=== PATIENT | female | born 1950 | race Caucasian/White ===

== ENCOUNTER → 2020-04-29 09:26 | Outpatient (CLI) | payer SELFPAY ==
--- NOTE | ~2020-04-29 | CT_ITS ---
EXAMINATION: CT brain wo con DATE: 04/29/2020 09:47 INDICATION: Altered mental status. Confusion, disorientation. Right lower extremity paresis. TECHNIQUE: Computed tomography (CT) of the head was performed without intravenous contrast. The mA wa s adjusted according to patient size. Iterative reconstruction technique was employed. Exam dose: 67 4.51 mGy-cm total exam DLP. COMPARISON: None FINDINGS: There is bilateral vertebral artery, basilar artery and bilateral carotid siphon internal c arotid artery calcification. There is nonspecific patchy diminished attenuation of the subcortical and periventricular cerebral wh ite matter, likely due to chronic small vessel ischemic changes. There is moderately prominent cerebral cortical atrophy, particularly in the frontal areas. The cereb ral ventricles are unremarkable. No intracranial mass lesion or hemorrhage or intracranial mass lesion is detected. No midline shift o r mass effects. No subdural or epidural hematoma. There is a small mucus retention cyst or polyp in the posterolateral aspect of the right ethmoid air cells. The paranasal sinuses and mastoid air cells are otherwise unremarkable. Partial ethmoidectomie s and nasal antral windows. No fracture or bone destruction of the cranial vault is detected. IMPRESSION: Cerebral atherosclerosis and chronic small vessel ischemic changes of the cerebral white matter Moderately prominent cerebral cortical atrophy Reviewed, dictated and finalized at [facility]. Reviewed, dictated and finalized at [facility].
== END ==
PROVIDERS: PCP Physician Assistant; Visit Provider Physician Assistant
DX: R41.0 Disorientation, unspecified (principal); R53.83 Other fatigue; R53.1 Weakness; I67.2 Cerebral atherosclerosis
CPT/HCPCS: 70450

== ENCOUNTER 2024-05-03 11:50 | Emergency (ER) | payer MEDICARE, SELFPAY ==
[2024-05-03 12:10] VITALS: BP 131/64; PULSE 61; RESP 18; TEMP 36.4; O2SAT 99
--- NOTE | 2024-05-03 12:15 | ED.SKABFB ---
HPI - Skin/Abscess/Foreign Bdy General Chief complaint: Skin/Abscess/Foreign Body Stated complaint: insect bite Time Seen by Provider: 05/03/24 12:15 Source: patient Mode of arrival: ambulatory Limitations: no limitations History of Present Illness HPI narrative: 73-year-old female presents with complaint of pain, redness to left middle finger. Concern for insect bite. Symptoms for 2 days getting progressively worse. 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 All systems reviewed and negative except as noted above. Related Data Home Medications Medication Instructions Recorded Confirmed amlodipine 5 mg tablet 5 mg PO DAILY 05/03/24 05/03/24 aspirin 81 mg chewable tablet 81 mg PO DAILY 05/03/24 05/03/24 cyanocobalamin (vitamin B-12) 500 500 mcg PO DAILY 05/03/24 05/03/24 mcg tablet donepezil 10 mg tablet 10 mg PO DAILY 05/03/24 05/03/24 levetiracetam 500 mg 500 mg PO BID 05/03/24 05/03/24 tablet,extended release 24 hr levothyroxine 88 mcg tablet 88 mcg PO DAILY 05/03/24 05/03/24 memantine 10 mg tablet 15 mg PO DAILY 05/03/24 05/03/24 Allergies Allergy/AdvReac Type Severity Reaction Status Date / Time No Known Allergies Allergy Verified 05/03/24 12:23 Review of Systems Review of Systems: CONSTITUTIONAL: Denies fever, chills, or sweats. EYES: Denies visual changes, redness, or discharge. ENT: Denies rhinorrhea, congestion, sore throat, or otalgia. CARDIOVASCULAR: Denies chest pain, palpitations, or edema. RESPIRATORY: Denies cough or dyspnea. GASTROINTESTINAL: Denies abdominal pain, nausea, vomiting, or diarrhea. GENITOURINARY: Denies dysuria or hematuria. SKIN: Denies rash or itching. Redness, swelling, pain to left middle finger. MUSCULOSKELETAL: Denies back pain, joint pain, or myalgia. NEUROLOGIC: Denies headache, numbness, or weakness. PSYCHIATRIC: Denies anxiety or depression. All other systems reviewed are negative, except as documented in HPI. [facility] Comments At time of signature, agree with nursing past medical, surgical, social and family history. There is no relevant family history pertinent to the presenting complaint. Exam Narrative: GENERAL: This is a well-nourished, well-developed patient, in no apparent distress. HEAD: normocephalic, atraumatic. EYES: PERRL. Sclera clear/white. Vision is grossly intact. EARS: External ears normal NOSE: External nose normal NECK: Neck supple, non-tender without lymphadenopathy, masses or thyromegaly. CARDIOVASCULAR: Regular rate and rhythm without murmurs, gallops, or rubs. RESPIRATORY: Clear to auscultation. Breath sounds equal bilaterally. No wheezes, rales, or rhonchi. SKIN: warm, Dry, intact with no suspicious lesions or rash, good texture and turgor. Paronychia to left middle finger, medial aspect. Erythematous, fluctuant. NEURO: awake, alert, and oriented to person, place and time. There were no obvious focal neurologic abnormalities. EXTREMITIES: No joint tenderness, effusion, or edema noted. Course Course Level of Care: Express Care Visit Vital Signs Vital signs: Vital Signs Temperature 36.4 C 05/03/24 12:10 Pulse Rate 61 05/03/24 12:10 Respiratory Rate 18 05/03/24 12:10 Blood Pressure 131/64 05/03/24 12:10 Pulse Oximetry 99 05/03/24 12:10 Oxygen Delivery Room Air 05/03/24 12:10 Temperature 36.4 C 05/03/24 12:10 Pulse Rate 61 05/03/24 12:10 Respiratory Rate 18 05/03/24 12:10 Blood Pressure 131/64 05/03/24 12:10 Pulse Oximetry 99 05/03/24 12:10 Oxygen Delivery Room Air 05/03/24 12:10 Reviewed Procedures Abscess I/D hand: Date of Incision: 05/03/24 Time of Incision: 12:15 Side (if applicable): left ( middle finger) Technique: incised with #11 blade Irrigation: No Packing used?: none I&D Results: Pus Abcess I&D Additional Comments: paronychia to left middle finger MDM - Skin/Abscess/Foreign Bdy MDM
--- NOTE | 2024-05-04 10:51 | PC.NURSE ---
[id number] Ta from [facility] pharmacy called stating pt was allergic to PCN. Chart show NKDA; pt is in a long-term care facility so pharmacy could not verify when pt arrived. Medication was changed to Keflex 500 TID X10d per Misa Beltran
== END 2024-05-03 12:25 | disposition home or self-care (01) ==
PROVIDERS: Emergency Provider Nurse Practitioner Family
DX: L03.012 Cellulitis of left finger (principal); G30.9 Alzheimer's disease, unspecified; F02.80 Dementia in other diseases classified elsewhere, unspecified severity, without behavioral disturbance, psychotic disturbance, mood disturbance, and anxiety; E78.00 Pure hypercholesterolemia, unspecified; I10 Essential (primary) hypertension; M19.90 Unspecified osteoarthritis, unspecified site; E03.9 Hypothyroidism, unspecified; Z79.82 Long term (current) use of aspirin
CPT/HCPCS: 10060; 99213; G0463

== ENCOUNTER 2024-11-20 07:28 | Emergency (ER) | payer MEDICARE, SELFPAY ==
--- NOTE | ~2024-11-20 | CT_ITS ---
EXAMINATION: CT brain wo con DATE: 11/20/2024 07:58 INDICATION: Seizure. TECHNIQUE: Computed tomography (CT) of the head was performed without intravenous contrast. The mA wa s adjusted according to patient size. Iterative reconstruction technique was employed. The dose-lengt h product was 1059.33 mGy-cm. COMPARISON: Head CT 04/29/20 FINDINGS: There are scattered areas of low attenuation in the cerebral white matter. There is no intr acranial hemorrhage, acute infarction, or abnormal intracranial mass lesion. The ventricles are gali l in size. There are likely changes of ocular lens replacement surgeries. There is mild mucosal thick ening in the paranasal sinuses with surgical changes. The mastoid air cells are normal. IMPRESSION: 1. Stable extensive nonspecific cerebral white matter disease, which likely represents chronic small vessel ischemic disease. Reviewed, dictated and finalized at location [facility] [employer] IMPRESSION: 1. Stable extensive nonspecific cerebral white matter disease, which likely rep resents chronic small vessel ischemic disease.
[2024-11-20 07:29] VITALS: BP 141/91; PULSE 128; RESP 20; TEMP 36.4; O2SAT 94
--- NOTE | 2024-11-20 07:33 | ECG_ITS ---
Test Date: 2024-11-20 07:40:22 Measurements Intervals [place] Rate: 131 P: 0 MA: 0 QRS: 26 QRSD: 101 T: 0 QT: 244 QTc: 360 Interpretive Statements ATRIAL FIBRILLATION WITH RAPID VENTRICULAR RESPONSE NONSPECIFIC ST & T-WAVE ABNORMALITY- DIFFUSE LEADS BASELINE ARTIFACT- I, II, III, AVR, AVL, AVF, V1-V3 ABNORMAL ECG No previous ECG available for comparison Electronically Signed On 11-20-2024 08:09:15 [place] by David Sanders D.O.
--- OUTSIDE RECORDS SUMMARY | 2024-11-20 08:35 | XMS_ITS | Clinical Summary ---
Author Organization [facility] Address [address] [place] [address] Care Team Providers Care Consumer Insight Analyst Name Role Phone Jorge Jefferson MD Unavailable + [phone] Lizzie Collins MD Unavailable [phone] Freeman Chung MD Unavailable [phone] Maribel Andrade MD Unavailable [phone] Guy Rosen MD Unavailable Nan Blair Primary Care Provider [phone] Allergies Active Allergy Reactions Criticality Noted Date Comments Amoxicillin Unknown 02/02/2019 Codeine Other (See comments),Dizziness,Naus ea And Vomiting,Unknown Low 03/16/2016 Spaced out and sick to stomach Spaced out and sick to stomach confusion, n/v [place] Other (See comments),Unknown Low 02/02/2019 Severe reaction-Kidney failure Severe reaction-Kidney failure Severe reaction-Kidney failure Morphine Unknown,Vomiting Low 10/13/2018 *pt not aware of reaction; can't remember but knows she should not take this. vomiting Olanzapine Delusions Medium 11/09/2018 Confusion Penicillins Hives,Swelling,Unkno wn,U rticaria Medium 03/16/2016 Hives Medications acetaminophen (TYLENOL) 325 mg tablet Take 2 tablets (650 mg total) by mouth every 6 (six) hours as needed for pain 90 tablet 1 Active Additional Information Patient not taking.Reported on 07/29/2024 cholecalciferol (VITAMIN D-3) 25 mcg (1,000 unit) tablet TAKE 1 TABLET BY MOUTH ONCE DAILY 90 tablet 1 1 Active donepeziL (ARICEPT) 10 mg tablet TAKE 1 TABLET BY MOUTH ONCE DAILY 90 tablet 1 1 Active cyanocobalamin (Vitamin B-12) 1,000 mcg tablet TAKE 1 TABLET BY MOUTH EVERY OTHER DAY 7 tablet 4 2 Active memantine (NAMENDA) 10 mg tabletIndicatio ns:Moderate to Severe Alzheimer's Type Dementia Take 1 tablet (10 mg total) by mouth 2 (two) times a day Active melatonin 5 mg tablet Take 0.6 tablets (3 mg total) by mouth nightly as needed Active levothyroxine (SYNTHROID) 88 mcg tablet TAKE 1 TABLET BY MOUTH ONCE DAILY 14 tablet 3 3 Active aspirin 81 mg enteric coated tablet Take 1 tablet (81 mg total) by mouth daily Active amLODIPine (NORVASC) 5 mg tablet Take 1 tablet (5 mg total) by mouth daily 4 Active albuterol HFA (PROVENTIL HFA,VENTOLIN HFA,PROAIR HFA) 90 mcg/actuation inhaler Inhale 2 puffs every 6 (six) hours as needed for wheezing Active naltrexone (DEPADE) 50 mg tabletIndicatio ns:Alcohol use disorder, moderate (HCC) Take 1 tablet (50 mg total) by mouth daily 30 tablet 3 4 07/29/20 25 Active Active Problems Problem Noted Date Diagnosed Date Medicare annual wellness visit, subsequent 05/07 Assessment & Plan (05/07/2023 3:56 PM CDT): Health Maintenance: -PCV13 vaccine: 05/18/2015 -PPSV23 vaccine: 02/02/2019 -Tdap vaccine: due -Influenza vaccine: due in Fall -Shingles vaccine: 07/02/2018, 10/16/2018 -Colonoscopy: 12/16/2018 (5 year recall) -Last WWE: N/A -Last Mammogram: -Last DEXA: 05/07/2022 -Last eye exam: 2021 -Last MHA: 05/07/2023 Patient due for Tdap, she can get this at her pharmacy. Patient and step son will discuss whether she would like to continue with mammograms. Annual labs ordered today. Continue with healthy diet and getting regular exercise. Late onset Alzheimer's disease with behavioral d isturbance 10/12/2020 Assessment & Plan (01/20/2024 5:31 PM CDT): AD, expected progression Continue Aricept, Namenda Meds administered by [facility]. Add Tiffany to their roster to administer to patient. Continue to monitor alcohol intake, spending, and falls/ possible seizure. Low threshold to consider seizure work-up: brain MRI, EEG --Discontinue Keppra 500mg BID. No indication to be on med after 1 lifetime seizure. Assessment & Plan (05/07/2023 3:57 PM CDT): Followed by Neurology. Continue Namenda and Aricept as prescribed. Steps and will clarify dosing of Namenda and update our office. Assessment & Plan (01/07/2023 5:47 PM CDT): Expected progression of AD Continue Aricept and Namenda Write more on your calendar and referencing it. Monitor wine intake. Monitor debit/ charge card expenditure. Consider setting a limit to minimize scams. Assessment & Plan (01/01/2022 4:48 PM CDT): Continue Aricept Namenda not started by this office; ok to continue Doing well at [facility] Assessment & Plan (11/15/2021 10:29 AM CRUTCH MAKER): Worsening. Patient will continue current meds. Followed by Neurology as needed. Patient continues with assisted living/memory care Assessment & Plan (12/26/2020 5:35 PM CDT): Dx: Alzheimer disease Continue Donepezil 10mg in the AM Sleep: Turn over phone and not scroll on the phone prior to sleep. If unable to sleep after 20 minutes, suggest reading a book instead. Take Melatonin at the same time every night to help retrain your brain. It is not addictive. Agree with move to [facility]. Continue to work with Dr. Andrade, counselor and cognitive stimulation therapist. Assessment & Plan (10/12/2020 11:27 AM CRUTCH MAKER): Followed by neurology, unchanged Class 1 obesity due to exces s calories with serious comorbidity and body mass index (BMI) of 31.0 to 31.9 in adult 08/26/2019 Assessment & Plan (05/07/2023 2:29 PM CDT): Reviewed BMI Focus on healthy diet options Work on healthy changes Assessment & Plan (11/15/2021 10:28 AM CRUTCH MAKER): Uncontrolled. Goal of BMI is less than 30 Educated patient on healthy diet/exercise plan. Exercise 150min-300min per week of moderate intensity. Diet: good, healthy protein (eggs, nuts, peanut butter, chicken, fish, turkey, less pork/beef), lots of vegetables, less carbohydrates and less sugar. Patient has had a significant amount of unexplained weight loss. Requested lab results Patient will start Ensure drinks twice a day. Follow-up in 1 month Assessment & Plan (10/12/2020 11:26 AM CRUTCH MAKER): Educated patient on healthy diet/exercise plan. Exercise 150min-300min per week of moderate intensity. Diet: good, healthy protein (eggs, nuts, peanut butter, chicken, fish, turkey, less pork/beef), lots of vegetables, less carbohydrates and less sugar. Assessment & Plan (05/27/2020 3:38 PM CDT): Educated patient on healthy diet/exercise plan. Exercise 150min-300min per week of moderate intensity. Diet: good, healthy protein (eggs, nuts, peanut butter, chicken, fish, turkey, less pork/beef), lots of vegetables, less carbohydrates and less sugar. Assessment & Plan (05/02/2020 2:08 PM CDT): Educated patient on healthy diet/exercise plan. Exercise 150min-300min per week of moderate intensity. Diet: good, healthy protein (eggs, nuts, peanut butter, chicken, fish, turkey, less pork/beef), lots of vegetables, less carbohydrates and less sugar. Assessment & Plan (02/19/2020 3:29 PM CDT): Educated patient on healthy diet/exercise plan. Exercise 150min-300min per week of moderate intensity. Diet: good, healthy protein (eggs, nuts, peanut butter, chicken, fish, turkey, less pork/beef), lots of vegetables, less carbohydrates and less sugar. Assessment & Plan (08/26/2019 1:23 PM CRUTCH MAKER): Educated patient on healthy diet/exercise plan. Exercise 150min-300min per week of moderate intensity. Diet: good, healthy protein (eggs, nuts, peanut butter, chicken, fish, turkey, less pork/beef), lots of vegetables, less carbohydrates and less sugar. Health maintenance examination 01/26/2019 Overview (11/15/2021): PMH/MHA: 11/15/2021 Last pap:2012 Last mammogram: 02/04/2018 (requested report) Last dexa:02/04/2018, ordered Last colonoscopy/cologuard:08/2015, 12/16/2018 repeat 2023 Last Hep C:04/2017 Last tdap:04/08/2013 Last Prevnar/pneumovax: 05/18/2015 (13) 07/18/2011 (23) Last Shingrix: (zoster 10/07/2012) 10/16/2018, 07/03/2018 Last eye exam: 05/25/2020 Assessment & Plan (11/15/2021 10:28 AM CRUTCH MAKER): PMH/MHA: 11/15/2021 Last pap:2012 Last mammogram: 02/04/2018 (requested report) Last dexa:02/04/2018, ordered Last colonoscopy/cologuard:08/2015, 12/16/2018 repeat 2023 Last Hep C:04/2017 Last tdap:04/08/2013 Last Prevnar/pneumovax: 05/18/2015 (13) 07/18/2011 (23) Last Shingrix: (zoster 10/07/2012) 10/16/2018, 07/03/2018 Last eye exam: 05/25/2020 Assessment & Plan (10/12/2020 11:27 AM CRUTCH MAKER): PMH/MHA: 10/12/2020 Last pap:2013 Last mammogram: 02/04/2018 Last dexa:02/04/2018 Last colonoscopy/cologuard:08/2015, 12/16/2018 repeat 2023 Last Hep C:04/2017 Last tdap:04/08/2013 Last Prevnar/pneumovax: 05/18/2015 (13) 07/18/2011 (23) Last Shingrix: (zoster 10/07/2012) 10/16/2018, 07/03/2018 Last eye exam: 05/25/2020 Assessment & Plan (08/26/2019 1:10 PM CRUTCH MAKER): PMH/MHA: 08/26/2019 Last pap:2013 Last mammogram: 02/04/2018 Last dexa:02/04/2018 Last colonoscopy/cologuard:08/2015, 12/16/2018 repeat 2023 Last Hep C:04/2017 Last tdap:04/08/2013 Last Prevnar/pneumovax: 05/18/2015 (13) 07/18/2011 (23) Last Shingrix: (zoster 10/07/2012) 10/16/2018, 07/03/2018 Last eye exam: due Recurrent major depressive disorder, in partial remission 10/13/2018 Assessment & Plan (05/07/2023 3:58 PM CDT): Chronic. Continue follow-up psychiatry. Assessment & Plan (11/15/2021 10:29 AM CRUTCH MAKER): Stable continue meds Assessment & Plan (10/12/2020 11:28 AM CRUTCH MAKER): Stable, followed by Psychiatry Assessment & Plan (05/23/2020 3:09 PM CDT): Strongly recommend consistent care and follow-up with [facility] Psychiatry to evaluate and treat mood diagnoses including but not limited to depression (longstanding), anxiety, panic. Obtain bMRI 3D to assess interval atrophy from 2018 scan. Consider further neurodegenerative work-up depending on bMRI findings. Assessment & Plan (05/02/2020 2:12 PM CDT): Improving continue meds. Follow-up with psychiatry Assessment & Plan (02/19/2020 3:31 PM CDT): Patient feels like her symptoms are controlled, recommend patient follow-up with psychiatry Assessment & Plan (10/16/2019 1:12 PM CRUTCH MAKER): Uncontrolled. Assessment & Plan (10/14/2019 1:02 PM CRUTCH MAKER): Uncontrolled. I really feel like pt is very lonely and she needs daily interaction with other people. Encouraged pt to consider a fdc center to open her world to new hobbies, interactions with other. Need referral to psychiatrist. Need to see counselor within the next 2 wks. Memory issues may be related to depression. Assessment & Plan (08/26/2019 1:24 PM CRUTCH MAKER): Referral to psychiatrist Generalized anxiety disorder 03/12/2018 Assessment & Plan (05/07/2023 3:57 PM CDT): Chronic. Continue follow-up with psychiatrist. Assessment & Plan (11/15/2021 10:28 AM CRUTCH MAKER): Stable, continue current meds Assessment & Plan (10/12/2020 11:26 AM CRUTCH MAKER): Stable followed by Psychiatry Assessment & Plan (02/19/2020 3:30 PM CDT): Stable Assessment & Plan (11/18/2019 4:05 PM CRUTCH MAKER): Patient will hold lorazepam at this time. She is not having any anxiety Assessment & Plan (10/14/2019 1:03 PM CRUTCH MAKER): Referral psychiatrist Assessment & Plan (08/26/2019 1:22 PM CRUTCH MAKER): Stable Bipolar 1 disorder, depressed, moderate (CMS/HCC ) 11/06/2017 Assessment & Plan (05/07/2023 3:57 PM CDT): Chronic. Continue follow-up with psychiatrist. Assessment & Plan (11/15/2021 10:27 AM CRUTCH MAKER): Stable Assessment & Plan (10/12/2020 11:26 AM CRUTCH MAKER): Stable followed by Psychiatry Assessment & Plan (05/02/2020 2:11 PM CDT): Follow with psychiatry Assessment & Plan (02/19/2020 3:30 PM CDT): Patient has not made appointment with a psychiatrist. Patient reports she is feeling stable on her current meds. I encouraged patient to make a Psychiatry appointment Assessment & Plan (11/18/2019 4:05 PM CRUTCH MAKER): Uncontrolled. Increase Wellbutrin to 300 mg. Patient needs to see a psychiatrist. Patient given a list of psychiatrist in the area. I spoke with her lela not too long ago about patient needing to see the psychiatrist and also patient needing to consider moving into some type of fdc center to have interactions with other people Assessment & Plan (10/16/2019 3:21 PM CRUTCH MAKER): Uncontrolled. Pt does not have a psychiatrist at this time. I spoke with patient's papo vogel, today regarding patient's health. I'm concerned with patient's mental health and also her memory. I'm unsure if her depression is leading to the memory issues or if she separately has memory issues going on. I believe patient needs psychiatric care. I'm concerned about patient's staying by herself. I did recommend they consider looking into inpatient psychiatric care at [facility] in [place]. Patient's son will be contacting his brother and they will be deciding what to do in the next day or so. Patient will be monitor closely over the weekend by Papo. Assessment & Plan (10/14/2019 1:03 PM CRUTCH MAKER): Uncontrolled, referral to psychiatrist. Assessment & Plan (08/26/2019 1:22 PM CRUTCH MAKER): Depressed, need to see psychiatry for medication adjustment. Essential (primary) hypertension 08/15/2017 Assessment & Plan (05/07/2023 3:57 PM CDT): Chronic and controlled without medication. Continue to monitor. Assessment & Plan (11/15/2021 10:28 AM CRUTCH MAKER): Stable, continue current meds Assessment & Plan (10/12/2020 11:26 AM CRUTCH MAKER): Stable continue meds Assessment & Plan (02/19/2020 3:30 PM CDT): Stable Assessment & Plan (11/18/2019 4:05 PM CRUTCH MAKER): Stable continue meds Assessment & Plan (08/26/2019 1:22 PM CRUTCH MAKER): Stable, continue current meds Primary osteoarthritis of right knee 08/15/2017 Assessment & Plan (05/07/2023 2:31 PM CDT): Continue Tylenol as needed for pain. Assessment & Plan (11/15/2021 10:29 AM CRUTCH MAKER): Patient takes Tylenol for pain. Assessment & Plan (10/12/2020 11:28 AM CRUTCH MAKER): Uncontrolled. Patient will hopefully get to start physical therapy soon once her insurance has been reinstated. Patient may also need to see Ortho in the near future Assessment & Plan (08/26/2019 1:24 PM CRUTCH MAKER): stable Unsteady gait 11/09/2016 Assessment & Plan (05/07/2023 3:58 PM CDT): Completed physical therapy. No recent falls. Assessment & Plan (11/15/2021 10:29 AM CRUTCH MAKER): Recommend physical therapy. Recommend using a cane Assessment & Plan (10/12/2020 11:29 AM CRUTCH MAKER): Uncontrolled. Patient is doing okay with her maneuvering in her house. Recommend patient use a cane while out. Patient will need to start physical therapy for balance Assessment & Plan (05/02/2020 2:12 PM CDT): Once insurance has been reinstated will order home health physical therapy Assessment & Plan (02/19/2020 3:31 PM CDT): Encourage patient to consider physical therapy and also to start walking daily. Assessment & Plan (08/26/2019 1:24 PM CRUTCH MAKER): Use cane at all times, Recommend PT. Pt will consider that. Assessment & Plan (02/02/2019 11:25 AM CDT): Order physical therapy Glucose intolerance (impaired glucose tolerance) 09/03/2016 Assessment & Plan (05/07/2023 3:57 PM CDT): Diet controlled. Labs ordered today. Assessment & Plan (11/15/2021 10:28 AM CRUTCH MAKER): Diet controlled, requested lab results Assessment & Plan (10/12/2020 11:27 AM CRUTCH MAKER): Stable, diet controlled Assessment & Plan (02/19/2020 3:30 PM CDT): Diet controlled check labs Assessment & Plan (08/26/2019 1:23 PM CRUTCH MAKER): Diet controlled, due for labs Obstructive sleep apnea 08/14/2016 Assessment & Plan (05/07/2023 2:30 PM CDT): Not on CPAP. Assessment & Plan (11/15/2021 10:29 AM CRUTCH MAKER): Stable Assessment & Plan (10/12/2020 11:28 AM CRUTCH MAKER): Stable, no CPAP machine at this time Assessment & Plan (08/26/2019 1:13 PM CRUTCH MAKER): No cpap machine Other allergic rhinitis 08/14/2016 Assessment & Plan (05/07/2023 2:30 PM CDT): Continue current management. Assessment & Plan (11/15/2021 10:29 AM CRUTCH MAKER): Stable Assessment & Plan (10/12/2020 11:28 AM CRUTCH MAKER): Stable p.r.n. meds Assessment & Plan (08/26/2019 1:23 PM CRUTCH MAKER): stable Other specified hypothyroidism 12/30/2015 Assessment & Plan (05/07/2023 2:30 PM CDT): Continue current dose of levothyroxine. Due for TSH. Assessment & Plan (11/15/2021 10:29 AM CRUTCH MAKER): Stable, continue meds, requested lab Assessment & Plan (10/12/2020 11:28 AM CRUTCH MAKER): Stable continue meds Assessment & Plan (02/19/2020 3:31 PM CDT): Check labs Assessment & Plan (08/26/2019 1:24 PM CRUTCH MAKER): Stable, check labs Mixed hyperlipidemia 12/30/2015 Assessment & Plan (05/07/2023 2:30 PM CDT): Diet controlled. Will continue to monitor lipid panel. Assessment & Plan (11/15/2021 10:29 AM CRUTCH MAKER): Diet controlled. Requested lab Assessment & Plan (10/12/2020 11:28 AM CRUTCH MAKER): Stable, patient is not on meds at this time Assessment & Plan (02/19/2020 3:31 PM CDT): Check labs Assessment & Plan (08/26/2019 1:23 PM CRUTCH MAKER): Check labs Vitamin D deficiency 12/30/2015 Assessment & Plan (05/07/2023 2:31 PM CDT): Continue vitamin-D supplement. Assessment & Plan (11/15/2021 10:30 AM CRUTCH MAKER): Stable continue vitamin Assessment & Plan (10/12/2020 11:29 AM CRUTCH MAKER): Stable continue vitamin Assessment & Plan (02/19/2020 3:31 PM CDT): Check labs Assessment & Plan (08/26/2019 1:25 PM CRUTCH MAKER): Continue vit d Resolved Problems Problem Noted Date Diagnosed Date Resolved Date Unspecified mood (affective) disorder ([facility]) 03/21/2020 11/15/2021 Assessment & Plan (10/12/2020 11:29 AM CRUTCH MAKER): Stable followed by Psychiatry Assessment & Plan (05/02/2020 2:12 PM CDT): Improving. Continue meds. Follow-up with psychiatry Altered mental status, unspecified 03/17/2020 04/04/2020 Cough 02/02/2019 08/26/2019 Assessment & Plan (02/02/2019 11:25 AM CDT): Patient/parent was counseled on medication risk, side effects, and possible complications. Patient/parent was counseled on how to properly take the medication and to call with any adverse reactions. Patient/parent stated understanding. Trial of meds If fails may be side effect of her tomer (even though pt has been on this med for years). May need to change meds. No allergies symptoms today No reflux symptoms today. Pneumococcal 7-valent conjug ate vaccine administered 02/02/2019 08/26/2019 Assessment & Plan (02/02/2019 11:29 AM CDT): Counseled patient/parents on all components of listed vaccines and VIS forms given at today's visit . All questions answered. Pneumovax 23 given today Decreased appetite 04/14/2018 9 Overactive bladder 03/12/2018 2 Assessment & Plan (10/12/2020 11:28 AM CRUTCH MAKER): Stable continue meds Assessment & Plan (11/18/2019 4:05 PM CRUTCH MAKER): With patient's change in urinary symptoms I would like to hold the VESIcare and see how she does. UA in office today was negative Assessment & Plan (08/26/2019 1:24 PM CRUTCH MAKER): Stable, continue meds Mild neurocognitive disorder 12/20/2017 10/12/2020 Assessment & Plan (05/02/2020 2:12 PM CDT): Overall memory has improved since patient has arrived home. Awaiting neuro appointment next month. Reviewed CT scan and lab results. Did talk about medication for dementia/Alzheimer's. Follow-up in 4 weeks Informed patient she does not have permission to drive at this time Assessment & Plan (04/04/2020 1:58 PM CDT): Awaiting further testing from Neurology. Assessment & Plan (02/19/2020 3:31 PM CDT): Patient feels like symptoms have worsened, family has also noticed more of a neural cognitive decline. Patient [facility] back to [facility]. Patient was due to follow-up with them in 1 year which would have been October 2019 Assessment & Plan (10/14/2019 1:03 PM CRUTCH MAKER): Referral to memory clinic at [facility]. Scores show mild decline. Assessment & Plan (08/26/2019 1:23 PM CRUTCH MAKER): Need to rtc for memory testing. Paroxysmal SVT (supraventric ular tachycardia) ([facility]) 08/15/2017 11/15/2021 Assessment & Plan (10/12/2020 11:28 AM CRUTCH MAKER): Stable Assessment & Plan (02/19/2020 3:31 PM CDT): Stable Assessment & Plan (08/26/2019 1:24 PM CRUTCH MAKER): Alejandro, followed by cardiology Leukocytoclastic vasculitis ([facility]) 04/24/2017 08/26/2019 Leucocytosis 03/26/2017 08/26/2019 MARTIN (dyspnea on exertion) 12/11/2016 History of IBS 09/03/2016 08/26/2019 History of radiofrequency ab lation procedure for cardiac arrhythmia 09/03/2016 08/26/2019 Vulvar dystrophy 09/03/2016 10/12/2020 Assessment & Plan (08/26/2019 1:25 PM CRUTCH MAKER): Stable History of rhabdomyolysis 08/14/2016 Atrial flutter ([facility]) 02/14/201606/2022 Assessment & Plan (10/12/2020 11:26 AM CRUTCH MAKER): Stable Assessment & Plan (02/19/2020 3:30 PM CDT): Stable Assessment & Plan (08/26/2019 1:22 PM CRUTCH MAKER): Alejandro followed by cardiology Encounters Date Type Department Care Team Description 11/19/2024 Telephone [facility] [address] [phone] Nan Blair PA Medical Question/Miscellaneous 2024 Telephone [facility] [address] [phone] Nan Blair PA Medical Question/Miscellaneous 11/03/2024 Telephone [facility] Accountable Care Organization [address] [place] [id number] Tina Shah MA Unsuccessful Phone Call 1 ([facility]) from Last 3 Months Immunizations Name Administration Dates Next Due Influenza Virus Vaccine Trivalent Mdv 07/03/2018 Influenza, Quadrivalent, Spl it, Preservative Free, Intramuscular 07/14/2020 Influenza, Trivalent, Adjuva nted, Intramuscular 07/02/2018 Influenza, Trivalent, High D ose, Split, Preservative Free, Intramuscular 07/22/2019,07/18/2017,06/07/2016 Influenza, Trivalent, IM (MDV) 10/03/2015,2012 Influenza, Trivalent, Preser vative Free, Intramuscular 07/01/2016,10/03/2015 Influenza, Unspecified 07/07/2022,2020,07/22/2019,06/07 Pneumococcal Conjugate PCV 13 05/18/2015 Pneumococcal Polysaccharide PPV23 02/02/2019,09/2011 Tdap 04/08/2013 ZOSTER LIVE 04/17/2013,10/07/2012 ZOSTER Recombinant 10/16/2018,07/02/2018 Surgical History Surgery Date Site/Laterality Comments CHOLECYSTECTOMY GASTRIC BYPASS 10/07/2002 - 10/06/2003 SINUS SURGERY x2 CARDIAC SURGERY 10/07/2012 - 10/06/2013 Cardiac Ablation FOOT SURGERY CARDIAC CATHETERIZATION 06/07/2013 - 07/06/2013 PLANTAR FASCIECTOMY 02/04/2017 - 03/06/2017 COLONOSCOPY 08/07/2015 - 09/05/2015 repeat due 2018 Medical History Medical History Date Comments Recurrent major depressive d isorder, in partial remission (HCC) 10/13/2018 Obstructive sleep apnea 08/14/2016 Atrial flutter (CMS/HCC) (HCC) 02/14/2016 Bipolar 1 disorder, depresse d, moderate (CMS/HCC) (HCC) 11/06/2017 Decreased appetite 04/14/2018 MARTIN (dyspnea on exertion) 12/11/2016 Essential (primary) hypertension 08/15/2017 Generalized anxiety disorder 03/12/2018 Glucose intolerance (impaire d glucose tolerance) 09/03/2016 History of IBS 09/03/2016 History of radiofrequency ab lation procedure for cardiac arrhythmia 09/03/2016 History of rhabdomyolysis 08/14/2016 Other specified hypothyroidism 12/30/2015 Leucocytosis 03/26/2017 Leukocytoclastic vasculitis (CMS/HCC) ([facility]) 04/24/2017 Mild neurocognitive disorder 12/20/2017 Mixed hyperlipidemia 12/30/2015 Other allergic rhinitis 08/14/2016 Overactive bladder 03/12/2018 Paroxysmal SVT (supraventric ular tachycardia) ([facility]) 08/15/2017 Primary osteoarthritis of right knee 08/15/2017 Vulvar dystrophy 09/03/2016 Unsteady gait 11/09/2016 Vitamin D deficiency 12/30/2015 Hypothyroidism Head injury 1958 3rd grade, uncon scious, doc office and [place] home Seizures ([facility]) Single event dur ing cruise 12/2023 Family History Medical History Relation Name Comments Alzheimer's disease Father Hypertension Father triple bypass Father Colon cancer Maternal Grandmother Dementia Mother Diabetes Mother Hypertension Mother Transient ischemic attack Mother Cancer Paternal Grandfather large a nd small intestine cancer Hypertension Sister Relation Name Status Comments Father AD diagnosed in 80s Maternal Grandmother Mother TIAs Paternal Grandfather Sister Social History Tobacco Use Types Packs/Day Years Used Date Smoking Tobacco: Never Smokeless Tobacco: Never Tobacco Cessation:Counseling Given: Not Answered Alcohol Use Standard Drinks/Week Comments Never 0 (1 standard drink = 0.6 oz pur e alcohol) AUDIT-C Answer Date Recorded Q1: How often do you have a drink containing alc ohol? Monthly or less 11/15/2021 Q2: How many drinks containi ng alcohol do you have on a typical day when you are drinking? 1 or 2 11/15/2021 Q3: How often do you have si x or more drinks on one occasion? 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 on file Not on file Obstetrics History Last Filed Vital Signs Vital Sign Reading Time Taken Comments Blood Pressure 123/82 07/29/2024 9:41 AM CDT Pulse 109 07/29/2024 9:41 AM CDT Temperature 36.3 C (97.3 F) 07/29/2024 9:41 AM CDT Respiratory Rate 18 05/07/2023 2:33 PM CDT Oxygen Saturation 98% 07/29/2024 9:41 AM CDT Inhaled Oxygen Concentration - - Weight 94.3 kg (208 lb) 07/29/2024 9:41 AM CDT Height 166.4 cm (5' 5.5 ) 07/29/2024 9:41 AM CDT Body Mass Index 34.09 07/29/2024 9:41 AM CDT Plan of Treatment Health Maintenance Due Date Last Done Comments Hepatitis B Screening 1968 DTaP/Tdap/Td Vaccine (2 - Td or Tdap) 04/08/2023 04/08/2013 Colon Cancer Screening-Colonoscopy 12/17/2023 12/16/2018, 08/07/2015 Depression Screening 05/07/2024 05/07/2023, 11/15/2021, 11/15/2021, Additional history exists Fall Risk Assessment 05/07/2024 05/07/2023, 11/15/2021, 10/12/2020, Additional history exists Well Visit 65+ 05/07/2024 05/07/2023, 02/0 06/2022, 10/12/2020, Additional history exists Covid-19 Vaccine (2023-2 5 season) 2024 04/13/2022, 08/01/2021, 12/05/2020, Additional history exists Influenza Vaccine (#1) 2024 , 08/01/2021, 07/14/2020, Additional history exists Hepatitis C Screening Completed 04/24/2017 Breast Cancer Screening-Mammogram Discontinued 02/04/2018, 02/04/2018, 11/07/2016, Additional history exists Zoster Vaccine Completed 10/16/2018, 06/08, 04/17/2013, Additional history exists Colon Cancer Screening-CT Colonography Discontinued 12/16/2018, 08/07/2015 Colon Cancer Screening-DNA Stool Discontinued 12/17/19 19, 08/07/2015 Colon Cancer Screening-FIT Discontinued 12/16/2018, Colon Cancer Screening-Sigmoidoscopy Discontinued 12/16/2018, 08/07/2015 Pneumococcal vaccine 65+ Completed 019, 05/18/2015, 07/18/2011 Procedures Procedure Name Priority Date/Time Associated Diagnosis Comments COLONOSCOPY Routine 12/16/2018 MAMMOGRAPHY Routine 02/04/2018 HEPATITIS C ANTIBODY Routine 04/24/2017 11:05 AM CDT from Last 3 Months or Most Recently Relevant to Health Maintenance Results * COLONOSCOPY (12/16/2018) Colonoscopy Abnormal Historical Provider HEALTH MAINTENANCE Final Result * MAMMOGRAPHY (02/04/2018) Mammogram Normal Historical Provider HEALTH MAINTENANCE Final Result * Hepatitis C antibody (04/24/2017 11:05 AM CDT) Pathologist [facility] Hep C Ab NONREACT NONREACTIVE Comment: Siemens LaguoaurXP using NIKUNJ (chemiluminescent immunoassay) technology. NONREACTIVE: Antibodies to Hepatitis C not detected. This does not exclude early acute Hepatitis C infection, possibility of exposure to Hepatitis C, antibodies below detection limit, or to lack of antibody reactivity to the antigen used in this assay. EQUIVOCAL: Antibodies to Hepatitis C may or may not be present. Sample to be confirmed by real-time PCR method. REACTIVE: Antibodies to Hepatitis C detected. 04/24/2017 11:0 5 AM CDT 04/24/2017 3:39 PM CDT [facility] MICROBIOLOGY - GENERAL ORD ERABLES Final Result [facility] HISTORICAL RESULTS from Last 3 Months or Most Recently Relevant to Health Maintenance Insurance MEDICARE [employer] MEDICARE [employer] MEDICARE SOLUTIONS Advance Directives For more information, please contact: [phone] Documents on File Type Date Recorded Patient Scraper Burrer Expl anation ADVANCE DIRECTIVE 12/07/2020 3:24 PM DNR ADVANCE DIRECTIVE 09/25/2013 12:00 AM [facility] ER OF CARD LACER JACQUARD FINANCIAL/MEDICAL Care Teams Consumer Insight Analyst Relationship Specialty Start Date End Date Nan Blari PA [address] [place] [address] PCP - General Family Medicine 07/03/22 Jorge Jefferson MD [address] [place] [address] Consulting Physician Family Medicine 03/09/19 Lizzie Collins MD [address] [facility] [address] [place] [address] [address] Limousine Driver Cardiology 05/18/19 Freeman Chung MD [address] [place] [address] Referring Physician Geriatric Psychiatry 06/09/20 Maribel Andrade MD [address] [address] Consulting Physician Anesthesiology 12/31/20 Guy Rosen MD [address] [place] [address] Psychiatry 01/11/22
--- OUTSIDE RECORDS SUMMARY | 2024-11-20 08:35 | XMS_ITS | Encounter Summary ---
Author Organization [facility] Healthcare Address [address] [place] [address] Care Team Providers Care Test Baker Name Role Phone Jorge Jefferson MD Unavailable + [phone] Lizzie Collins MD Unavailable [phone] Freeman Chung MD Unavailable [phone] Maribel Andrade MD Unavailable [phone] Guy Rosen MD Unavailable Nan Blair Primary Care Provider Reason for Visit * Reason Onset Date Comments Medical Question/Miscellaneous 11/19/2024 Encounter Details Date Type Department Care Team (Late st Contact Info) Description 11/19/[address] 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 Call warm transferred to the backline. Reason for Warm Transfer: Patient returning call from practice Practice Accepted the Warm Transfer? Yes Additional Comments If YES above, and no barriers. Does message need to be routed? No APPRAISER * Telephone Encounter - Rayna Ortiz - 11/19/2024 9:52 AM CST Called pt 2 x left message recorder need to schedule KARL. Will call 1 more time then send a letter APPRAISER documented in this encounter Plan of Treatment Not on file documented as of this encounter Visit Diagnoses Not on filedocumented in this encounter Care Teams Test Baker Relationship Specialty Start Date End Date Nan Blair PA [address] [place] [address] PCP - General Family Medicine 07/03/22 Jorge Jefferson MD [address] [place] [address] Consulting Physician Family Medicine 03/09/19 Lizzie Collins MD [address] [facility] [address] [address] Rotary Lithographic Press Operator Cardiology 05/18/19 Freeman Chung MD [address] [place] [address] Referring Physician Geriatric Psychiatry 06/09/20 Maribel Andrade MD [address] [facility] [address] [address] Consulting Physician Anesthesiology 12/31/20 Guy Rosen MD [address] [place] [address] Psychiatry 01/11/22 documented as of this encounter
--- OUTSIDE RECORDS SUMMARY | 2024-11-20 08:35 | XMS_ITS | Encounter Summary ---
Author Organization [facility] Healthcare Address [address] [place] [address] Care Team Providers Care Procurement Consultant Name Role Phone Jorge Jefferson MD Unavailable + [phone] Lizzie Collins MD Unavailable [phone] Freeman Chung MD Unavailable [phone] Maribel Andrade MD Unavailable [phone] Guy Rosen MD Unavailable Nan Blair Primary Care Provider [phone] Reason for Visit * Reason Onset Date Comments Medical Question/Miscellaneous 2024 Encounter Details Date Type Department Care Team (Late st Contact Info) Description 2024 Telephone [facility] Medical [facility] Family Medicine [address] [phone] Nan Blair PA [address] [address] Medical Question/Miscellaneous Social History Tobacco [...] on file Legal Sex Female 1:09 AM LAB COORDINATOR Gender Identity Female 10/05/2020 10:15 AM LAB COORDINATOR Sexual Orientation Straight 10/05/2020 10 :15 AM LAB COORDINATOR 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 Does message need to be routed? No Reason for Warm Transfer: Provider to Provider Calls Practice Accepted the Warm Transfer? Yes Additional Comments If YES above, and no barriers. COORDINATOR documented in this encounter Plan of Treatment Not on file documented as of this encounter Visit Diagnoses Not on filedocumented in this encounter Care Teams Procurement Consultant Relationship Specialty Start Date End Date Nan Blair PA [address] [place] [address] PCP - General Family Medicine 07/03/22 Jorge Jefferson MD [address] [place] [address] Consulting Physician Family Medicine 03/09/19 Lizzie Collins MD [address] [address] District Home Economics Agent Cardiology 05/18/19 Freeman Chung MD [address] [place] [address] Referring Physician Geriatric Psychiatry 06/09/20 Maribel Andrade MD [address] [facility] [address] [address] Consulting Physician Anesthesiology 12/31/20 Guy Rosen MD [address] [place] [address] Psychiatry 01/11/22 documented as of this encounter
--- OUTSIDE RECORDS SUMMARY | 2024-11-20 08:35 | XMS_ITS | Referral Summary ---
Author Organization [facility] Address [address] [place] [address] Care Team Providers Care Senior Manager Mmcoe Name Role Phone Jorge Jefferson MD Unavailable + [phone] Lizzie Collins MD Unavailable [phone] Freeman Chung MD Unavailable [phone] Maribel Andrade MD Unavailable [phone] Guy Rosen MD Unavailable Nan Blair Primary Care Provider [phone] Encounters Date Type Department Care Team Description 11/19/2024 Telephone [facility] Family Medicine [address] [address] Nan Blair PA Medical Question/Miscellaneous 2024 Telephone [facility] [address] [phone] Nan Blair PA Medical Question/Miscellaneous 11/03/2024 Telephone [facility] Care Organization [address] [place] [id number] Tina Shah MA Unsuccessful Phone Call 1 ([facility]) from Last 3 Months Allergies Active Allergy Reactions Criticality Noted Date Comments Amoxicillin Unknown 02/02/2019 Codeine Other (See comments),Dizziness,Naus ea And Vomiting,Unknown Low 03/16/2016 Spaced out and sick to stomach Spaced out and sick to stomach confusion, n/v [place] Other (See comments),Unknown Low 02/02/2019 Severe reaction-Kidney [...] ASL Assessment & Plan (11/15/2021 10:29 AM ANIMATION ARTIST): Worsening. Patient will continue current meds. Followed [...] is not addictive. Agree with move to [facility]. Continue to work with Dr. Andrade, counselor and cognitive stimulation therapist. Assessment & Plan (10/12/2020 11:27 AM ANIMATION ARTIST): Followed by neurology, unchanged Class 1 obesity due to exces s calories with serious comorbidity and body mass index (BMI) of 31.0 to 31.9 in adult 08/26/2019 Assessment & Plan (05/07/2023 2:29 PM CDT): Reviewed BMI Focus on healthy diet options Work on healthy changes Assessment & Plan (11/15/2021 10:28 AM ANIMATION ARTIST): Uncontrolled. Goal of BMI is less than [...] month Assessment & Plan (10/12/2020 11:26 AM ANIMATION ARTIST): Educated patient on healthy diet/exercise plan. Exercise [...] sugar. Assessment & Plan (08/26/2019 1:23 PM ANIMATION ARTIST): Educated patient on healthy diet/exercise plan. Exercise [...] Last tdap:04/08/2013 Last Prevnar/pneumovax: 05/18/2015 (13) 07/18/2011 () Last Shingrix: (zoster 10/07/2012) 10/16/2018, 07/03/2018 Last eye exam: 05/25/2020 Assessment & Plan (11/15/2021 10:28 AM ANIMATION ARTIST): PMH/MHA: 11/15/2021 Last pap:2013 Last mammogram: 02/04/2018 (requested report) Last dexa:02/04/2018, ordered Last colonoscopy/cologuard:08/2015, 12/16/2018 repeat 2023 Last Hep C:04/2017 Last tdap:04/08/2013 Last Prevnar/pneumovax: 05/18/2015 (13) 07/18/2011 (23) Last Shingrix: (zoster 10/07/2012) 10/16/2018, 07/03/2018 Last eye exam: 05/25/2020 Assessment & Plan (10/12/2020 11:27 AM ANIMATION ARTIST): PMH/MHA: 10/12/2020 Last pap:2012 Last mammogram: 02/04/2018 Last dexa:02/04/2018 Last colonoscopy/cologuard:08/2015, 12/16/2018 repeat 2023 Last Hep C:04/2017 Last tdap:04/08/2013 Last Prevnar/pneumovax: 05/18/2015 (13) 07/18/2011 (23) Last Shingrix: (zoster 10/07/2012) 10/16/2018, 07/03/2018 Last eye exam: 05/25/2020 Assessment & Plan (08/26/2019 1:10 PM ANIMATION ARTIST): PMH/MHA: 08/26/2019 Last pap:2013 Last mammogram: 02/04/2018 Last dexa:02/04/2018 Last colonoscopy/cologuard:08/2015, 12/16/2018 repeat 2023 Last Hep C:04/2017 Last tdap:04/08/2013 Last Prevnar/pneumovax: 05/18/2015 (13) 07/18/2011 (23) Last Shingrix: (zoster 10/07/2012) 10/16/2018, 07/03/2018 Last eye exam: due Recurrent major depressive disorder, in partial remission 10/13/2018 Assessment & Plan (05/07/2023 3:58 PM CDT): Chronic. Continue follow-up psychiatry. Assessment & Plan (11/15/2021 10:29 AM ANIMATION ARTIST): Stable continue meds Assessment & Plan (10/12/2020 11:28 AM ANIMATION ARTIST): Stable, followed by Psychiatry Assessment & Plan (05/23/2020 3:09 PM CDT): Strongly recommend consistent care and follow-up with [facility] Psychiatry to evaluate and treat mood diagnoses [...] psychiatry Assessment & Plan (10/16/2019 1:12 PM ANIMATION ARTIST): Uncontrolled. Assessment & Plan (10/14/2019 1:02 PM ANIMATION ARTIST): Uncontrolled. I really feel like pt is very lonely and she needs daily interaction with other people. Encouraged pt to consider a senior care center to open her world to new hobbies, interactions with other. Need referral to psychiatrist. Need to see counselor within the next 2 wks. Memory issues may be related to depression. Assessment & Plan (08/26/2019 1:24 PM ANIMATION ARTIST): Referral to psychiatrist Generalized anxiety disorder 03/12/2018 Assessment & Plan (05/07/2023 3:57 PM CDT): Chronic. Continue follow-up with psychiatrist. Assessment & Plan (11/15/2021 10:28 AM ANIMATION ARTIST): Stable, continue current meds Assessment & Plan (10/12/2020 11:26 AM ANIMATION ARTIST): Stable followed by Psychiatry Assessment & Plan (02/19/2020 3:30 PM CDT): Stable Assessment & Plan (11/18/2019 4:05 PM ANIMATION ARTIST): Patient will hold lorazepam at this time. She is not having any anxiety Assessment & Plan (10/14/2019 1:03 PM ANIMATION ARTIST): Referral psychiatrist Assessment & Plan (08/26/2019 1:22 PM ANIMATION ARTIST): Stable Bipolar 1 disorder, depressed, moderate (CMS/HCC ) 11/06/2017 Assessment & Plan (05/07/2023 3:57 PM CDT): Chronic. Continue follow-up with psychiatrist. Assessment & Plan (11/15/2021 10:27 AM ANIMATION ARTIST): Stable Assessment & Plan (10/12/2020 11:26 AM ANIMATION ARTIST): Stable followed by Psychiatry Assessment & Plan (05/02/2020 2:11 PM CDT): Follow with psychiatry Assessment & Plan (02/19/2020 3:30 PM CDT): Patient has not made appointment with a psychiatrist. Patient reports she is feeling stable on her current meds. I encouraged patient to make a Psychiatry appointment Assessment & Plan (11/18/2019 4:05 PM ANIMATION ARTIST): Uncontrolled. Increase Wellbutrin to 300 mg. Patient needs to see a psychiatrist. Patient given a list of psychiatrist in the area. I spoke with her stepson not too long ago about patient needing to see the psychiatrist and also patient needing to consider moving into some type of senior care center to have interactions with other people Assessment & Plan (10/16/2019 3:21 PM ANIMATION ARTIST): Uncontrolled. Pt does not have a psychiatrist [...] consider looking into inpatient psychiatric care at [facility] in [place]. Patient's son will be contacting his brother and they will be deciding what to do in the next day or so. Patient will be monitor closely over the weekend by Papo. Assessment & Plan (10/14/2019 1:03 PM ANIMATION ARTIST): Uncontrolled, referral to psychiatrist. Assessment & Plan (08/26/2019 1:22 PM ANIMATION ARTIST): Depressed, need to see psychiatry for medication adjustment. Essential (primary) hypertension 08/15/2017 Assessment & Plan (05/07/2023 3:57 PM CDT): Chronic and controlled without medication. Continue to monitor. Assessment & Plan (11/15/2021 10:28 AM ANIMATION ARTIST): Stable, continue current meds Assessment & Plan (10/12/2020 11:26 AM ANIMATION ARTIST): Stable continue meds Assessment & Plan (02/19/2020 3:30 PM CDT): Stable Assessment & Plan (11/18/2019 4:05 PM ANIMATION ARTIST): Stable continue meds Assessment & Plan (08/26/2019 1:22 PM ANIMATION ARTIST): Stable, continue current meds Primary osteoarthritis of right knee 08/15/2017 Assessment & Plan (05/07/2023 2:31 PM CDT): Continue Tylenol as needed for pain. Assessment & Plan (11/15/2021 10:29 AM ANIMATION ARTIST): Patient takes Tylenol for pain. Assessment & Plan (10/12/2020 11:28 AM ANIMATION ARTIST): Uncontrolled. Patient will hopefully get to start physical therapy soon once her insurance has been reinstated. Patient may also need to see Ortho in the near future Assessment & Plan (08/26/2019 1:24 PM ANIMATION ARTIST): stable Unsteady gait 11/09/2016 Assessment & Plan (05/07/2023 3:58 PM CDT): Completed physical therapy. No recent falls. Assessment & Plan (11/15/2021 10:29 AM ANIMATION ARTIST): Recommend physical therapy. Recommend using a cane Assessment & Plan (10/12/2020 11:29 AM ANIMATION ARTIST): Uncontrolled. Patient is doing okay with her [...] daily. Assessment & Plan (08/26/2019 1:24 PM ANIMATION ARTIST): Use cane at all times, Recommend PT. Pt will consider that. Assessment & Plan (02/02/2019 11:25 AM CDT): Order physical therapy Glucose intolerance (impaired glucose tolerance) 09/03/2016 Assessment & Plan (05/07/2023 3:57 PM CDT): Diet controlled. Labs ordered today. Assessment & Plan (11/15/2021 10:28 AM ANIMATION ARTIST): Diet controlled, requested lab results Assessment & Plan (10/12/2020 11:27 AM ANIMATION ARTIST): Stable, diet controlled Assessment & Plan (02/19/2020 3:30 PM CDT): Diet controlled check labs Assessment & Plan (08/26/2019 1:23 PM ANIMATION ARTIST): Diet controlled, due for labs Obstructive sleep apnea 08/14/2016 Assessment & Plan (05/07/2023 2:30 PM CDT): Not on CPAP. Assessment & Plan (11/15/2021 10:29 AM ANIMATION ARTIST): Stable Assessment & Plan (10/12/2020 11:28 AM ANIMATION ARTIST): Stable, no CPAP machine at this time Assessment & Plan (08/26/2019 1:13 PM ANIMATION ARTIST): No cpap machine Other allergic rhinitis 08/14/2016 Assessment & Plan (05/07/2023 2:30 PM CDT): Continue current management. Assessment & Plan (11/15/2021 10:29 AM ANIMATION ARTIST): Stable Assessment & Plan (10/12/2020 11:28 AM ANIMATION ARTIST): Stable p.r.n. meds Assessment & Plan (08/26/2019 1:23 PM ANIMATION ARTIST): stable Other specified hypothyroidism 12/30/2015 Assessment & Plan (05/07/2023 2:30 PM CDT): Continue current dose of levothyroxine. Due for TSH. Assessment & Plan (11/15/2021 10:29 AM ANIMATION ARTIST): Stable, continue meds, requested lab Assessment & Plan (10/12/2020 11:28 AM ANIMATION ARTIST): Stable continue meds Assessment & Plan (02/19/2020 3:31 PM CDT): Check labs Assessment & Plan (08/26/2019 1:24 PM ANIMATION ARTIST): Stable, check labs Mixed hyperlipidemia 12/30/2015 Assessment & Plan (05/07/2023 2:30 PM CDT): Diet controlled. Will continue to monitor lipid panel. Assessment & Plan (11/15/2021 10:29 AM ANIMATION ARTIST): Diet controlled. Requested lab Assessment & Plan (10/12/2020 11:28 AM ANIMATION ARTIST): Stable, patient is not on meds at this time Assessment & Plan (02/19/2020 3:31 PM CDT): Check labs Assessment & Plan (08/26/2019 1:23 PM ANIMATION ARTIST): Check labs Vitamin D deficiency 12/30/2015 Assessment & Plan (05/07/2023 2:31 PM CDT): Continue vitamin-D supplement. Assessment & Plan (11/15/2021 10:30 AM ANIMATION ARTIST): Stable continue vitamin Assessment & Plan (10/12/2020 11:29 AM ANIMATION ARTIST): Stable continue vitamin Assessment & Plan (02/19/2020 3:31 PM CDT): Check labs Assessment & Plan (08/26/2019 1:25 PM ANIMATION ARTIST): Continue vit d Resolved Problems Problem Noted Date Diagnosed Date Resolved Date Unspecified mood (affective) disorder ([facility]) 03/21/2020 11/15/2021 Assessment & Plan (10/12/2020 11:29 AM ANIMATION ARTIST): Stable followed by Psychiatry Assessment & Plan [...] 2 Assessment & Plan (10/12/2020 11:28 AM ANIMATION ARTIST): Stable continue meds Assessment & Plan (11/18/2019 4:05 PM ANIMATION ARTIST): With patient's change in urinary symptoms I would like to hold the VESIcare and see how she does. UA in office today was negative Assessment & Plan (08/26/2019 1:24 PM ANIMATION ARTIST): Stable, continue meds Mild neurocognitive disorder 12/20/2017 [...] 2019 Assessment & Plan (10/14/2019 1:03 PM ANIMATION ARTIST): Referral to memory clinic at [facility]. Scores show mild decline. Assessment & Plan (08/26/2019 1:23 PM ANIMATION ARTIST): Need to rtc for memory testing. Paroxysmal SVT (supraventric ular tachycardia) (CMS/HCC) 08/15/2017 11/15/2021 Assessment & Plan (10/12/2020 11:28 AM ANIMATION ARTIST): Stable Assessment & Plan (02/19/2020 3:31 PM CDT): Stable Assessment & Plan (08/26/2019 1:24 PM ANIMATION ARTIST): Stable, followed by cardiology Leukocytoclastic vasculitis (CMS/HCC) 04/24/2017 08/26/2019 Leucocytosis 03/26/2017 08/26/2019 MARTIN (dyspnea on exertion) 12/11/2016 History of IBS 09/03/2016 08/26/2019 History of radiofrequency ab lation procedure for cardiac arrhythmia 09/03/2016 08/26/2019 Vulvar dystrophy 09/03/2016 10/12/2020 Assessment & Plan (08/26/2019 1:25 PM ANIMATION ARTIST): Stable History of rhabdomyolysis 08/14/2016 Atrial flutter (CMS/HCC) 02/14/201606/2022 Assessment & Plan (10/12/2020 11:26 AM ANIMATION ARTIST): Stable Assessment & Plan (02/19/2020 3:30 PM CDT): Stable Assessment & Plan (08/26/2019 1:22 PM ANIMATION ARTIST): Stable followed by cardiology Immunizations Name Administration Dates Next Due Influenza [...] 04/08/2013 ZOSTER LIVE 04/17/2013,10/07/2012 ZOSTER Recombinant 10/16/2018,07/02/2018 Social History Tobacco Use Types Packs/Day Years [...] on file Legal Sex Female 1:09 AM ANIMATION ARTIST Gender Identity Female 10/05/2020 10:15 AM ANIMATION ARTIST Sexual Orientation Straight 10/05/2020 10 :15 AM ANIMATION ARTIST 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 Not on file Not on file Last Filed Vital Signs Vital Sign Reading [...] 07/29/2024 9:41 AM CDT Plan of Treatment Not on file Procedures Procedure Name Priority Date/Time Associated Diagnosis Comments COLONOSCOPY Routine 12/16/2018 MAMMOGRAPHY Routine 02/04/2018 HEPATITIS C ANTIBODY Routine 04/24/2017 11:05 AM CDT from Last 3 Months or Most Recently Relevant to Health Maintenance Results * COLONOSCOPY (12/16/2018) Pathologist [facility] Colonoscopy Abnormal us Historical Provider MD HEALTH MAINTENANCE Final Result * MAMMOGRAPHY (02/04/2018) Pathologist [facility] Mammogram Normal us Historical Provider HEALTH MAINTENANCE Final Result * Hepatitis C antibody (04/24/2017 11:05 AM CDT) [facility] Hep C Ab NONREACT NONREACTIVE Comment: Siemens EnflickaurXP using NIKUNJ (chemiluminescent immunoassay) technology. NONREACTIVE: Antibodies [...] 5 AM CDT 04/24/2017 3:39 PM CDT us Nan [facility] MICROBIOLOGY - GENERAL ORD ERABLES Final Result [facility] HISTORICAL RESULTS from Last 3 Months or Most Recently Relevant to Health Maintenance Insurance [facility] Address: [address] [address] [place] [address] MEDICARE SOLUTIONS [facility] MEDICARE Address: [address] [address] [place] [address] [place] [address] MEDICARE SOLUTIONS Advance Directives For more information, please contact: [phone] Documents on File Type Date Recorded Patient Branch Office Manager Expl anation ADVANCE DIRECTIVE 12/07/2020 3:24 PM DNR ADVANCE DIRECTIVE 09/25/2013 12:00 AM [facility] ER OF DIRECTOR ADULT FINANCIAL/MEDICAL Care Teams Senior Manager Mmcoe Relationship Specialty Start Date End Date Nan Blair PA [address] [place] [address] PCP - General Family Medicine 07/03/22 Jorge Jefferson MD [address] [place] [address] Consulting Physician Family Medicine 03/09/19 Lizzie Collins MD [address] [facility] [place] [address] Cd Reactor Operator Head Cardiology 05/18/19 Freeman Chung MD [address] [place] [address] Referring Physician Geriatric Psychiatry 06/09/20 Maribel Andrade MD [address] [facility] [address] [address] Consulting Physician Anesthesiology 12/31/20 Guy Rosen MD [address] [place] [address] Psychiatry 01/11/22
--- OUTSIDE RECORDS SUMMARY | 2024-11-20 08:36 | XMS_ITS | Encounter Summary ---
Author Organization [facility] Address [address] [place] [address] Phone Care Team Providers Care Regional Flatbed Truck Driver Name Role Phone Nan Blair Primary Care Provider [phone] Jorge Jefferson MD Unavailable + [phone] Lizzie Collins MD Unavailable [phone] Freeman Chung MD Unavailable [phone] Maribel Andrade MD Unavailable [phone] Guy Rosen MD Unavailable Miscellaneous, Not In File Primary Care Provider Unavailable Nan Blair Primary Care Provider [phone] Encounter Details Date Type Department Care Team (Latest Contact Info) Description 03/17/2020 Orders Only [facility] Scanning, Provider Social History Tobacco Use Types Packs/Day Years Used Date Smoking Tobacco: Never Smokeless Tobacco: Never Alcohol Use Standard Drinks/Week Comments Never 0 (1 standard drink = 0.6 oz pur e alcohol) AUDIT-C Answer Date Recorded Frequency of Alcohol Consumption Never 02/02/2019 Average Number of Drinks Not on file 019 Frequency of Binge Drinking Not on file 01/06 PHQ-2 Answer Date Recorded PHQ-2 Score 4 11/18/2019 Comments No Sex and Gender Information Value Date Recorded Sex Assigned at Not on file Legal Sex Female 1:09 AM MATCH MAKER Gender Identity Female 10/05/2020 10:15 AM MATCH MAKER Sexual Orientation Straight 10/05/2020 10 :15 AM MATCH MAKER 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 Not on file Not on file documented as of this encounter Plan of Treatment Not on file documented as of this encounter Procedures Procedure Name Priority Date/Time Associated Diagnosis Comments SCAN - RADIOLOGY/IMAGING 03/17/2020 documented in this encounter Results * SCAN - RADIOLOGY/IMAGING (03/17/2020) Anatomical Region Laterality Modality Other us Provider Scanning Edited Result - Final documented in this encounter Visit Diagnoses Not on filedocumented in this encounter Care Teams Regional Flatbed Truck Driver Relationship Specialty Start Date End Date Nan Blair PA [address] [place] [address] PCP - General Physician Director Acute 03/09/19 05/03/22 Miscellaneous, Not In File PCP - General 05/04/22 07/02/22 Nan Blair PA [address] [place] [address] PCP - General Family Medicine 07/03/22 Jorge Jefferson MD [address] [place] [address] Consulting Physician Family Medicine 03/09/19 Lizzie Collins MD [address] [facility] [facility] [place] [address] Supply Chain Vice President Cardiology 05/18/19 Freeman Chung MD [address] [place] [address] Referring Physician Geriatric Psychiatry 06/09/20 Maribel Andrade MD [address] [facility] [address] [place] [address] Consulting Physician Anesthesiology 12/31/20 Guy Rosen MD [address] [place] [address] Psychiatry 01/11/22 documented as of this encounter
--- OUTSIDE RECORDS SUMMARY | 2024-11-20 08:36 | XMS_ITS | Encounter Summary ---
Author Organization [facility] Address [address] [place] [address] Phone Care Team Providers Care Monitor And Storage Bin Tender Name Role Phone Nan Blair Primary Care Provider [phone] Jorge Jefferson MD Unavailable + [phone] Lizzie Collins MD Unavailable [phone] Freeman Chung MD Unavailable [phone] Maribel Andrade MD Unavailable [phone] Guy Rosen MD Unavailable Miscellaneous, Not In File Primary Care Provider Unavailable Nan Blair Primary Care Provider [phone] Encounter Details Date Type Department Care Team (Latest Contact Info) Description 04/29/2020 Orders Only [facility] Scanning, Provider [...] on file Legal Sex Female 1:09 AM FOAM RUBBER MOLDER Gender Identity Female 10/05/2020 10:15 AM FOAM RUBBER MOLDER Sexual Orientation Straight 10/05/2020 10 :15 AM FOAM RUBBER MOLDER 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 Not on file Not on file documented as of this encounter Plan of Treatment Not on file documented as of this encounter Procedures Procedure Name Priority Date/Time Associated Diagnosis Comments SCAN - NEUROLOGY 04/29/2020 documented in this encounter Results * SCAN - NEUROLOGY (04/29/2020) Anatomical Region Laterality Modality Other us Provider Scanning Final Result documented in this encounter Visit Diagnoses Not on filedocumented in this encounter Care Teams Monitor And Storage Bin Tender Relationship Specialty Start Date End Date Nan Blair PA [address] [place] [address] PCP - General Physician Fitter Machinist 03/09/19 05/03/22 Miscellaneous, Not In File PCP - General 05/04/22 07/02/22 Nan Blair PA [address] [place] [address] PCP - General Family Medicine 07/03/22 Jorge Jefferson MD [address] [place] [address] Consulting Physician Family Medicine 03/09/19 Lizzie Collins MD [address] [facility] [place] [address] Lead Care Manager Cardiology 05/18/19 Freeman Chung MD [address] [place] [address] Referring Physician Geriatric Psychiatry 06/09/20 Maribel Andrade MD [address] [address] Consulting Physician Anesthesiology 12/31/20 Guy Rosen MD [address] [place] [address] Psychiatry 01/11/22 documented as of this encounter
--- OUTSIDE RECORDS SUMMARY | 2024-11-20 08:36 | XMS_ITS | Patient Health Record ---
Author Organization [facility] Address [address] [place] [address] Care Team Providers Care Pre K Special Education Teacher Name Role Phone Jasmin Villar Primary Care Provider ALLERGIES Allergen (clinical drug ingredient) Drug/Non Drug Allergy documented on EMR Reaction Allergy Type Onset Date Status sulfamethoxazole / trimethoprim Bactrim Unknown Drug Allergy Active amoxicillin Amoxicillin Unknown Drug Allergy Act mehdi codeine Codeine Unknown Drug Allergy Active lithium [place] Unknown Drug Allergy Active morphine Morphine Unknown Drug Allergy Active Penicillin Unknown Drug Allergy Active REASON FOR REFERRAL No Information MEDICATIONS Medication SIG (Take, Route, Frequency, Duration) Notes Start Date End Date Status Aspirin 81 MG 1 tablet Orally Once a day Active amLODIPine Besylate 5 MG 1 tablet Orally Once a day Active Fexofenadine HCl 180 MG 1 tablet Swallow whole with water; do not take with fruit juices. Orally Once a day 09/02/2023 Active Vitamin D3 25 MCG (1000 UT) 1 tablet Ora lly Once a day Active Vitamin B 12 500 MCG 1 tablet Orally Onc e a day Active Memantine HCl 10 MG 1/2 tablet daily. 1 tab at bedtime Orally Once a day Active Melatonin 3 MG 1 tablet at bedtime as needed Orally Once a day Active Levothyroxine Sodium 88 MCG 1 tablet in the morning on an empty stomach Orally Once a day Active Donepezil HCl 10 MG 1 tablet at bedtime Orally Once a day Active PROBLEMS Problem Type ICD Code Onset Dates Problem Status W/U Status Risk SNOMED Code Notes Problem Bipolar disorder, current episode hypomanic (F31.0) Active confirmed Manic bipo lar I disorder (81088085) Problem Alzheimer's disease with early onset (G30.0) Active confirmed Alzheimer's disease with early onset (144781854) Problem Obstructive sleep apnea (adult) (pediatric) (G47.33) Active confirmed Obstructive sle ep apnea syndrome (disorder) (79491108) Problem Essential (primary) hypertension (I10) Active confirmed Essential hypertension (91647103) Problem Supraventricular tachycardia (I47.1) Active confirmed Supraven tricular tachycardia (3423691) Problem Allergic rhinitis, unspecified (J30.9) Active confirmed Allergic rhinitis (89258005) Problem Unspecified osteoarthritis, unspecified site (M19.90) Active confirmed Osteoarthritis (678929388) Problem Overactive bladder (N32.81) Active confirmed Overactive blad ashok (323532272) Problem Mixed irritable bowel syndrome (K58.2) Active confirmed Irritable bowel syndrome (74181814) Problem Longstanding persistent atrial fibrillation (I48.11) Active confirmed Longstanding persistent atrial fibrillation (946862544) Problem Anxiety (F41.9) Active confirmed Anxiet y (46803755) Problem Vitamin D deficiency (E55.9) Active confirmed Vitamin D deficiency (98053799) Problem Major depression, recurrent, chronic (F33.9) Active confirmed Recurrent major depression (80556520) Problem Cardiac arrhythmia, unspecified cardiac arrhythmia type (I49.9) Active confirmed Cardiac arrhyth steven (667147392) Problem Uncontrolled atrial fibrillation (I48.91) Active confirmed Atrial fibrillation (14164118) Problem Hypothyroidism (acquired) (E03.9) Active confirmed Hypothyro idism (36653634) Problem HLD (hyperlipidemia) (E78.5) Active confirmed Hyperlipidaemia (68524972) Encounters Encounter Location Date Provider Diagnosis [place] [address] [place] [address] 12/23/2023 Jasmin Villar PLAN OF TREATMENT Pending Test Test Name Order Date Chest X-ray PA and lateral 09/11/2023 CBC with Differential 06/03/2023 Comprehensive Metabolic Panel (CMP), Ser um 06/03/2023 Magnesium, Serum 06/03/2023 Thyroid Stimulating Hormone (TSH) w/ ref paty 06/03/2023 Insurance Providers Payer Name Payer Address Payer Phone Subscriber Number Group Number Insured Name Patient Relationship to Insured Coverage Start Date Coverage End Date [facility] [address] [address] [place] [address] [id number] Kriss Worley Self - patient is the insured MEDICAL (GENERAL) HISTORY Medical History History ICD Code Essential (primary) hypertension I10 Anxiety F41.9 Mixed irritable bowel syndrome K58.2 Cardiac arrhythmia, unspecified cardiac arrhythmia type I49.9 Rhabdomyolysis M62.82 Hypothyroidism (acquired) E03.9 HLD (hyperlipidemia) E78.5 Obstructive sleep apnea (adult) (pediatr ic) G47.33 Allergic rhinitis, unspecified J30.9 Overactive bladder N32.81 Supraventricular tachycardia I47.1 Unspecified osteoarthritis, unspecified site M19.90 Vitamin D deficiency E55.9 Major depression, recurrent, chronic F33 .9 Uncontrolled atrial fibrillation I48.91 Bipolar disorder, current episode hypoma angeli F31.0 Dyspnea on exertion R06.00
--- OUTSIDE RECORDS SUMMARY | 2024-11-20 08:36 | XMS_ITS ---
Author Organization [facility] Address [address] [place] [address] Care Team Providers Care Residency Program Coordinator Name Role Phone Jasmin Villar Primary Care Provider MEDICATIONS Medication SIG (Take, Route, Fr equency, Duration) Notes Start Date End Date Status Azithromycin 250 MG 2 tablets today then 1 tablet daily for four more days Orally daily for 5 days 09/12/2023 09/17/2023 Active Encounters Encounter Location Date Provider Diagnosis [facility] [address] [place] [address] 09/12/2023 Jasmin Villar PLAN OF TREATMENT Medication Medication Name Sig Start Date Stop Date Notes Azithromycin 250 MG 2 tablets today then 1 tablet daily for four more days Orally daily for 5 days 09/12/2023 09/17/2023 Progress Notes * Yola WORLEYhDOB: 0 (72 yo F)Acc No.[id number]:09/12/2023 Patient: Kriss WORLEY :1950 Age:72 Y Sex:Female Phone: Address:[address], [address], [place] [address] * Refills Start Azithromycin Tablet, 250 MG, Orally, 6, 2 tablets today then 1 tablet daily for four more days, daily, 5 days, Refills=0 * true * Date:
--- OUTSIDE RECORDS SUMMARY | 2024-11-20 08:36 | XMS_ITS | Encounter Summary ---
Author Organization [facility] Care Team Providers Care Country Manager Name Role Phone Nan Blair Primary Care Provider [phone] Jorge Jefferson MD Primary Care Provid er Nan Blair Unavailable [phone] Nan Blair Primary Care Provider [phone] Jorge Jefferson MD Unavailable + [phone] Lizzie Collins MD Unavailable [phone] Freeman Chung MD Unavailable [phone] Maribel Andrade MD Unavailable [phone] Guy Rosen MD Unavailable Miscellaneous, Not In File Primary Care Provider Unavailable Nan Blair Primary Care Provider [phone] Encounter Details Date Type Department Care Team (Latest Contact Info) Description 04/17/2017 Orders Only [facility] CLINCONV ProviderJulieta MD [address] [place] [address] Social History Tobacco Use Types Packs/Day Years Used Date Smoking Tobacco: Never Assessed Comments Unknown Sex and Gender Information Value Date Recorded Sex Assigned at Not on file Legal Sex Female 1:09 AM MATERIALS ENGINEER Gender Identity Female 10/05/2020 10:15 AM MATERIALS ENGINEER Sexual Orientation Straight 10/05/2020 10 :15 AM MATERIALS ENGINEER documented as of this encounter Plan of Treatment Not on file documented as of this encounter Procedures Procedure Name Priority Date/Time Associated Diagnosis Comments SCAN - PATHOLOGY 04/17/2017 12:0 0 AM CDT documented in this encounter Results * SCAN - PATHOLOGY (04/17/2017 12:00 AM CDT) Narrative 04/17/2017 12:00 AM CDT Ordered by an unspecified provider. us Historical Provider Final Res ult documented in this encounter Visit Diagnoses Not on filedocumented in this encounter Care Teams Country Manager Relationship Specialty Start Date End Date Nan Blair PA [address] [place] [address] PCP - General Physician Business Analysis Professional 04/28/18 02/01/19 Jorge Jefferson MD [address] [place], [place] [address] PCP - General Family Medicine 02/02/19 03/08/19 Nan Blair PA [address] [place], [place] [address] PCP - General Physician Business Analysis Professional 03/09/19 05/03/22 Miscellaneous, Not In File PCP - General 05/04/22 07/02/22 Nan Blair PA [address] [place] [address] PCP - General Family Medicine 07/03/22 Nan Blair PA [address] [facility], [place] [address] Physician Business Analysis Professional Physician Business Analysis Professional 02/02/19 9 Jorge Jefferson MD [address] [place] [address] Consulting Physician Family Medicine 03/09/19 Lizzie Collins MD [address] [address] Natural Fabricator Cardiology 05/18/19 Freeman Chung MD [address] [place] [address] Referring Physician Geriatric Psychiatry 06/09/20 Maribel Andrade MD [address] [address] Consulting Physician Anesthesiology 12/31/20 Guy [place] MD [address] [place] [address] Psychiatry 01/11/22 documented as of this encounter
--- OUTSIDE RECORDS SUMMARY | 2024-11-20 08:36 | XMS_ITS | Clinical Summary ---
Author Organization [facility] Address [address] [place] [address] Care Team Providers Care Assistant Professor Of Geography Name Role Phone Nan Blair Primary Care Provider [phone] Allergies Active Allergy Reactions Criticality Noted Date Comments Codeine Nausea and Vomiting,Other (see comment) Low 03/16/2016 Spaced out and sick to stomach Mutual Other (see comment) Low 02/02/2019 Severe reaction-Kidney failure Morphine Unknown 03/16/2016 *pt not aware of reaction; can't remember but knows she should not take this. Penicillins Hives,Swelling,Unknown Medium 03/16/2016 Medications escitalopram 20 MG tablet Take 20 mg by mouth daily. 5 09/25/2017 Active levothyroxine 88 MCG tablet Take 88 mcg by mouth daily. 3 09/04/2017 Active furosemide 20 MG tablet Take 20 mg by mouth daily. 08/26/2019 Active buPROPion XL 150 MG 24 hr tablet Take 300 mg by mouth daily. 11/18/2019 Active metoprolol tartrate 25 MG tablet Take 25 mg by mouth daily. 11/18/2019 Active lisinopril 5 MG tablet Take 5 mg by mouth daily. 01/08/2020 Active ferrous sulfate EC 324 (65 Fe) MG tablet Take 324 mg by mouth daily with breakfast. Active vitamin D3, cholecalciferol, 1000 UNIT Tab tablet Take 1,000 Units by mouth daily. Active loratadine 10 MG tablet Take 10 mg by mouth daily as needed for Allergies. Active Active Problems Problem Noted Date Diagnosed Date Altered mental status, unspecified 03/17/2020 Class 3 severe obesity due t o excess calories with serious comorbidity and body mass index (BMI) of 40.0 to 44.9 in adult ([facility]) 08/26/2019 Overview (03/17/2020): Last Assessment & Plan: Educated patient on healthy diet/exercise plan. Exercise 150min-300min per week of moderate intensity. Diet: good, healthy protein (eggs, nuts, peanut butter, chicken, fish, turkey, less pork/beef), lots of vegetables, less carbohydrates and less sugar. Recurrent major depressive disorder, in partial remission 10/13/2018 Overview (03/17/2020): Last Assessment & Plan: Patient feels like her symptoms are controlled, recommend patient follow-up with psychiatry Generalized anxiety disorder 03/12/2018 Overview (03/17/2020): Last Assessment & Plan: Stable Overactive bladder 03/12/2018 Overview (03/17/2020): Last Assessment & Plan: With patient's change in urinary symptoms I would like to hold the VESIcare and see how she does. UA in office today was negative Mild neurocognitive disorder 12/20/2017 Overview (03/17/2020): Last Assessment & Plan: Patient feels like symptoms have worsened, family has also noticed more of a neural cognitive decline. [facility] Patient was due to follow-up with them in 1 year which would have been October 2019 Bipolar 1 disorder, depressed, moderate ([facility]) 11/06/2017 Overview (03/17/2020): Last Assessment & Plan: Patient has not made appointment with a psychiatrist. Patient reports she is feeling stable on her current meds. I encouraged patient to make a Psychiatry appointment Bipolar 1 disorder, depressed, moderate ([facility]) 10/30/2017 Mild cognitive impairment with memory loss 10/30 Confusion 10/29/2017 Essential (primary) hypertension 08/15/2017 Overview (03/17/2020): Last Assessment & Plan: Stable Primary osteoarthritis of right knee 08/15/2017 Overview (03/17/2020): Last Assessment & Plan: stable Vulvar dystrophy 09/03/2016 Overview (03/17/2020): Last Assessment & Plan: Stable Obstructive sleep apnea 08/14/2016 Overview (03/17/2020): Last Assessment & Plan: No cpap machine Other allergic rhinitis 08/14/2016 Overview (03/17/2020): Last Assessment & Plan: stable Atrial flutter ([facility]) 02/14/2016 Overview (03/17/2020): Last Assessment & Plan: Stable Mixed hyperlipidemia 12/30/2015 Overview (03/17/2020): Last Assessment & Plan: Check labs Other specified hypothyroidism 12/30/2015 Overview (03/17/2020): Last Assessment & Plan: Check labs Vitamin D deficiency 12/30/2015 Overview (03/17/2020): Last Assessment & Plan: Check labs Family History Medical History Relation Comments Hypertension Father Alzheimers Mother Hypertension Mother Stroke Mother Hypertension Sister Relation Status Comments Father Mother Sister Alive Social History Tobacco Use Types Packs/Day Years Used Date Smoking Tobacco: Never Smokeless Tobacco: Never Alcohol Use Standard Drinks/Week Comments Yes 5 (1 standard drink = 0.6 oz pur e alcohol) AUDIT-C Answer Date Recorded Frequency of Alcohol Consumption Not on file 03/17/2020 Average Number of Drinks 1 or 2 020 Frequency of Binge Drinking Never 03/07 Comments No Sex and Gender Information Value Date Recorded Sex Assigned at Not on file Legal Sex Female 9:10 PM CDT Gender Identity Not on file Sexual Orientation Not on file Last Filed Vital Signs Vital Sign Reading Time Taken Comments Blood Pressure 141/47 03/18/2020 6:27 AM CDT Pulse 59 03/18/2020 6:27 AM CDT Temperature 36.6 C (97.9 F) 03/18/2020 6:27 AM CDT Respiratory Rate 14 03/18/2020 6:27 AM CDT Oxygen Saturation 99% 03/18/2020 6:27 AM CDT Inhaled Oxygen Concentration - - Weight 115.8 kg (255 lb 4.7 oz) 03/18/2020 6:27 AM CDT Height 167.6 cm (5' 6 ) 03/17/2020 5:41 AM CDT Body Mass Index 41.21 03/17/2020 5:41 AM CDT Plan of Treatment Health Maintenance Due Date Last Done Comments Colorectal Cancer Screening Colonoscopy (10 Years) 1950 Hepatitis C 1968 Annual Medicare Wellness Visit 2014 Dexa Scan (General) 2014 DTaP, Tdap and Td Vaccines (2 - Td or Tdap) 04/08/2023 04/08/2013 COVID-19 Vaccine ( season) 2024 Influenza Adult (#1) 2024 07/22/2019, 07/03/2018, 06/07/2016, Additional history exists RSV Immunization or 60+ Years (1 - 1-dose 75+ series) 2024 Zoster Vaccines Completed 10/16/2018, 06/08, 10/07/2012 Pneumococcal Vaccine: 65+ Years Completed 02/02/2019, 05/18/2015, 07/18/2011 Meningococcal B Vaccine Aged Out No l onger eligible based on patient's age to complete this topic Meningococcal Vaccine Aged Out No rangel nando eligible based on patient's age to complete this topic RSV Immunizations Under 20 Months Aged Out No longer eligible based on patient's age to complete this topic Insurance MED REPLACE [facility] MEDICARE MED [facility] MEDICARE Advance Directives Documents on File Type Date Recorded Patient Steam Train Driver Expl anation Advance Directives and Living Will 11/05/2017 9:06 AM POWER OF DICE DEALER Advance Directives and Living Will 08/17/2013 ADVANCE DIRECTIVE * DNR (Latest Code Status on File) Date Activated Date Inactivated Comments 03/17/2020 9:43 AM 03/18/2020 1:18 PM * Full Code Date Activated Date Inactivated Comments 10/29/2017 4:12 PM 11/04/2017 4:02 PM Care Teams Assistant Professor Of Geography Relationship Specialty Start Date End Date Nan Blair PA [address] [place] [address] PCP - General 04/04/14
--- OUTSIDE RECORDS SUMMARY | 2024-11-20 08:36 | XMS_ITS | Encounter Summary ---
Author Organization [facility] Facility Care Team Providers Care Podiatry Teacher Name Role Phone Nan Blair Primary Care Provider [phone] Jorge Jefferson MD Primary Care Provid er Nan Blair Unavailable [phone] Nan Blair Primary Care Provider [phone] Jorge Jefferson MD Unavailable + [phone] Lizzie Collins MD Unavailable [phone] Freeman Chung MD Unavailable [phone] Maribel Andrade MD Unavailable [phone] Guy [place] MD Unavailable Miscellaneous, Not In File Primary Care Provider Unavailable Nan Blair Primary Care Provider [phone] Encounter Details Date Type Department Care Team (Latest Contact Info) Description 08/15/2017 Orders Only [facility] CLINCONV ProviderJulieta MD [address] [place] [address] Social History Tobacco Use Types Packs/Day Years Used Date Smoking Tobacco: Never Assessed Comments Unknown Sex and Gender Information Value Date Recorded Sex Assigned at Not on file Legal Sex Female 1:09 AM DUCT LAYER HELPER Gender Identity Female 10/05/2020 10:15 AM DUCT LAYER HELPER Sexual Orientation Straight 10/05/2020 10 :15 AM DUCT LAYER HELPER documented as of this encounter Plan of Treatment Not on file documented as of this encounter Procedures Procedure Name Priority Date/Time Associated Diagnosis Comments CARDIOLOGY REPORT 08/15/2017 12: 00 AM DUCT LAYER HELPER documented in this encounter Results * CARDIOLOGY REPORT (08/15/2017 12:00 AM DUCT LAYER HELPER) Anatomical Region Laterality Modality Other Narrative 08/15/2017 12:00 AM DUCT LAYER HELPER Ordered by an unspecified provider. us Historical Provider [facility] Final Result documented in this encounter Visit Diagnoses Not on filedocumented in this encounter Care Teams Podiatry Teacher Relationship Specialty Start Date End Date Nan Blair PA [address] [place] [address] PCP - General Physician Bull Float Finisher 04/28/18 02/01/19 Jorge Jefferson MD [address] [place], [place] [address] PCP - General Family Medicine 02/02/19 03/08/19 Nan Blair PA [address] [place] [address] PCP - General Physician Bull Float Finisher 03/09/19 05/03/22 Miscellaneous, Not In File PCP - General 05/04/22 07/02/22 Nan Blair PA [address] [place] [address] PCP - General Family Medicine 07/03/22 Nan Blair PA [address] [facility] [place] [address] Physician Bull Float Finisher Physician Bull Float Finisher 02/02/19 9 Jorge Jefferson MD [address] [place] [address] Consulting Physician Family Medicine 03/09/19 Lizzie Collins MD [address] [address] Children'S Librarian Cardiology 05/18/19 Freeman Chung MD [address] [place] [address] Referring Physician Geriatric Psychiatry 06/09/20 Maribel Andrade MD [address] [address] Consulting Physician Anesthesiology 12/31/20 Guy [place] MD [address] [place] [address] Psychiatry 01/11/22 documented as of this encounter
--- OUTSIDE RECORDS SUMMARY | 2024-11-20 08:36 | XMS_ITS | Encounter Summary ---
Author Organization [facility] Address [address] [facility] [address] [place] [address] Phone Care Team Providers Care Utilities Operator Name Role Phone Nan Blair Primary Care Provider [phone] Jorge Jefferson MD Primary Care Provid er Nan Blair Unavailable [phone] Nan Blair Primary Care Provider [phone] Jorge Jefferson MD Unavailable + [phone] Lizzie Collins MD Unavailable [phone] Freeman Chung MD Unavailable [phone] Maribel Andrade MD Unavailable [phone] Guy [place] MD Unavailable Miscellaneous, Not In File Primary Care Provider Unavailable Nan Blair Primary Care Provider [phone] Encounter Details Date Type Department Care Team (Latest Contact Info) Description 11/01/2017 Orders Only [place] Scanning, Provider Social History Tobacco Use Types Packs/Day Years Used Date Smoking Tobacco: Never Assessed Comments Unknown Sex and Gender Information Value Date Recorded Sex Assigned at Not on file Legal Sex Female 1:09 AM WET ROOM WORKER Gender Identity Female 10/05/2020 10:15 AM WET ROOM WORKER Sexual Orientation Straight 10/05/2020 10 :15 AM WET ROOM WORKER documented as of this encounter Plan of Treatment Not on file documented as of this encounter Procedures Procedure Name Priority Date/Time Associated Diagnosis Comments SCAN - RADIOLOGY/IMAGING 11/01/2017 documented in this encounter Results * SCAN - RADIOLOGY/IMAGING (11/01/2017) Anatomical Region Laterality Modality Other us Provider Scanning Final Result documented in this encounter Visit Diagnoses Not on filedocumented in this encounter Care Teams Utilities Operator Relationship Specialty Start Date End Date Nan Blair PA [address] [place] [address] PCP - General Physician Embossing Tool Setter 04/28/18 02/01/19 Jorge Jefferson MD [address] [place], [place] [address] PCP - General Family Medicine 02/02/19 03/08/19 Nan Blair PA [address] [place], [place] [address] PCP - General Physician Embossing Tool Setter 03/09/19 05/03/22 Miscellaneous, Not In File PCP - General 05/04/22 07/02/22 Nan Blair PA [address] [place], [place] [address] PCP - General Family Medicine 07/03/22 Nan Blair PA [address] [place], [place] [address] Physician Embossing Tool Setter Physician Embossing Tool Setter 02/02/19 9 Jorge Jefferson MD [address] [place] [address] Consulting Physician Family Medicine 03/09/19 Lizzie [place] MD [address] [facility] [address] [address] Deputy Chief Counsel Cardiology 05/18/19 Freeman Chung MD [address] [place] [address] Referring Physician Geriatric Psychiatry 06/09/20 Maribel Andrade MD [address] [facility] [address] [address] Consulting Physician Anesthesiology 12/31/20 Guy [place] MD [address] [place] [address] Psychiatry 01/11/22 documented as of this encounter
--- OUTSIDE RECORDS SUMMARY | 2024-11-20 08:36 | XMS_ITS | Encounter Summary ---
Author Organization [facility] Care Team Providers Care Glove Examiner Name Role Phone Nan Blair Primary Care Provider [phone] Jorge Jefferson MD Primary Care Provid er Nan Blair Unavailable [phone] Nan Blair Primary Care Provider [phone] Jorge Jefferson MD Unavailable + [phone] Lizzie Collins MD Unavailable [phone] Freeman Chung MD Unavailable [phone] Maribel Andrade MD Unavailable [phone] Guy Rosen MD Unavailable Miscellaneous, Not In File Primary Care Provider Unavailable Nan Blair Primary Care Provider [phone] Encounter Details Date Type Department Care Team (Latest Contact Info) Description 11/01/2017 Orders Only [facility] ProviderJuileta MD [address] [place] [id number] Social History Tobacco Use Types Packs/Day Years Used Date Smoking Tobacco: Never Assessed Comments Unknown Sex and Gender Information Value Date Recorded Sex Assigned at Not on file Legal Sex Female 1:09 AM PLATE AND FRAME FILTER OPERATOR Gender Identity Female 10/05/2020 10:15 AM PLATE AND FRAME FILTER OPERATOR Sexual Orientation Straight 10/05/2020 10 :15 AM PLATE AND FRAME FILTER OPERATOR documented as of this encounter Plan of Treatment Not on file documented as of this encounter Procedures Procedure Name Priority Date/Time Associated Diagnosis Comments CARDIOLOGY REPORT 11/01/2017 12: 00 AM PLATE AND FRAME FILTER OPERATOR documented in this encounter Results * CARDIOLOGY REPORT (11/01/2017 12:00 AM PLATE AND FRAME FILTER OPERATOR) Anatomical Region Laterality Modality Other Narrative 11/01/2017 12:00 AM PLATE AND FRAME FILTER OPERATOR Ordered by an unspecified provider. us Historical Provider [facility] Final Result documented in this encounter Visit Diagnoses Not on filedocumented in this encounter Care Teams Glove Examiner Relationship Specialty Start Date End Date Nna Blair PA [address] [place] [address] PCP - General Physician Pilot Instructor 04/28/18 02/01/19 Jorge Jefferson MD [address] [place], [place] [id number] PCP - General Family Medicine 02/02/19 03/08/19 Nan Blair PA [address] [place] [address] PCP - General Physician Pilot Instructor 03/09/19 05/03/22 Miscellaneous, Not In File PCP - General 05/04/22 07/02/22 Nan Blair PA [address] [place] [address] PCP - General Family Medicine 07/03/22 Nan Blair PA [address] [place] [address] Physician Pilot Instructor Physician Pilot Instructor 02/02/19 9 Jorge Jefferson MD [address] [place] [address] Consulting Physician Family Medicine 03/09/19 Lizzie Collins MD [address] [address] Channel Machine Operator Cardiology 05/18/19 Freeman Chung MD [address] [place] [address] Referring Physician Geriatric Psychiatry 06/09/20 Maribel Andrade MD [address] [address] Consulting Physician Anesthesiology 12/31/20 Guy Rosen MD [address] [place] [address] Psychiatry 01/11/22 documented as of this encounter
--- OUTSIDE RECORDS SUMMARY | 2024-11-20 08:37 | XMS_ITS | Referral Summary ---
Author Organization [facility] [employer] Address [address] [place] [address] Care Team Providers Care Asbestos Brake Lining Finisher Name Role Phone Nan Blair Primary Care Provider [phone] Source Comments [facility],non-owned Affiliates and Associated Physician Practices is amultiple site organization consisting of ambulatory clinics and hospital sitesin [place], [place], [place] and [place]. This disclosure is being madepursuant to the Care Everywhere program and may not contain all information available regarding this patient. Last updated 18.[facility] [employer] Allergies Active Allergy Reactions Criticality Noted Date Comments Codeine Dizziness 03/19/2020 Venturia Other Low 02/02/2019 Severe reaction-Kidney failure Severe reaction-Kidney failure Morphine Unknown 10/13/2018 *pt not aware of reaction; can't remember but knows she should not take this. Olanzapine Psychiatric Medium 11/09/2018 Confusion Penicillins Urticaria,Swelling,U nknow n Medium 03/16/2016 Medications * Be aware that medications may not be up to date on this document. Alwaysverify current medications with the patient. Medication Sig Dispensed Refills Start Date End Date Status levothyroxine (SYNTHROID) 88 MCG tablet Take 88 mcg by mouth once daily 09/04/2017 Active vitamin D3-cholecalciferol (CHOLECALCIFEROL) 25 MCG (1000 UNITS) tablet Take 1,000 Units by mouth once daily Active amLODIPine (NORVASC) 5 MG tablet Take 5 mg by mouth once daily 01/18/2022 Active melatonin 5 MG tablet Take 5 mg by mouth at bedtime Active cyanocobalamin (VITAMIN B-12) 1000 MCG tablet Take 1 (one) tablet by mouth once daily 100 tablet 3 03/13/2022 Active donepezil (Aricept) 10 MG tabletIndications:Al zheimer's Disease Take 1 (one) tablet by mouth once daily Reasons: Alzheimer's Disease 90 tablet 3 07/15/2024 Active memantine (Namenda) 10 MG tabletIndications:Al zheimer's Disease Take 1 (one) tablet by mouth 2 times daily Reasons: Alzheimer's Disease 180 tablet 3 07/15/2024 Active Active Problems Problem Noted Date Diagnosed Date Late onset Alzheimer's disea se without behavioral disturbance 04/18/2021 Mild neurocognitive disorder 06/14/2020 Recurrent major depressive disorder, in full rem ission 03/22/2020 Primary osteoarthritis of right knee 08/15/2017 Overview (04/18/2021): Last Assessment & Plan: Uncontrolled. Patient will hopefully get to start physical therapy soon once her insurance has been reinstated. Patient may also need to see Ortho in the near future Last Assessment & Plan: stable Essential (primary) hypertension 08/15/2017 Overview (04/18/2021): Last Assessment & Plan: Stable continue meds Last Assessment & Plan: Stable Unsteady gait 11/09/2016 Overview (04/18/2021): Last Assessment & Plan: Uncontrolled. Patient is doing okay with her maneuvering in her house. Recommend patient use a cane while out. Patient will need to start physical therapy for balance Other allergic rhinitis 08/14/2016 Overview (04/18/2021): Last Assessment & Plan: Stable p.r.n. meds Last Assessment & Plan: stable Atrial flutter 02/14/2016 Overview (04/18/2021): Last Assessment & Plan: Stable Last Assessment & Plan: Stable Other specified hypothyroidism 12/30/2015 Overview (04/18/2021): Last Assessment & Plan: Stable continue meds Last Assessment & Plan: Check labs Vitamin D deficiency 12/30/2015 Overview (04/18/2021): Last Assessment & Plan: Stable continue vitamin Last Assessment & Plan: Check labs Resolved Problems Problem Noted Date Diagnosed Date Resolved Date Bipolar 1 disorder, depressed, moderate 03/03/2024 07/15/2024 Class 3 severe obesity due t o excess calories with serious comorbidity and body mass index (BMI) of 40.0 to 44.9 in adult 08/26/2019 Overview (04/18/2021): Last Assessment & Plan: Educated patient on healthy diet/exercise plan. Exercise 150min-300min per week of moderate intensity. Diet: good, healthy protein (eggs, nuts, peanut butter, chicken, fish, turkey, less pork/beef), lots of vegetables, less carbohydrates and less sugar. Last Assessment & Plan: Educated patient on healthy diet/exercise plan. Exercise 150min-300min per week of moderate intensity. Diet: good, healthy protein (eggs, nuts, peanut butter, chicken, fish, turkey, less pork/beef), lots of vegetables, less carbohydrates and less sugar. Obstructive sleep apnea 08/14/201611/07 Overview (04/18/2021): Last Assessment & Plan: Stable, no CPAP machine at this time Last Assessment & Plan: No cpap machine Immunizations Name Administration Dates Next Due FLU VACCINE TRI IIV3 SPLIT PF IM (FLUVIRIN) 09/07 INFLUENZA VACCINE, ADJUVANTE D, TRIV. (FLUAD TRIVALENT; 65Y+) (AIIV3) 07/03/2018 INFLUENZA VACCINE, HIGH-DOSE , QUADR. (FLUZONE HIGH-DOSE QUADRIVALENT; 65Y+), 0.7 ML (HD-IIV4) 07/22/2019,06/07/2016 INFLUENZA VACCINE, QUADR. (F LUZONE; FLULAVAL; FLUARIX; AFLURIA QUADRIVALENT; 6MO+), 0.5 ML (IIV4) 07/14/2020 PNEUMOCOCCAL PPSV23 02/02/2019,07/18/2011 Pneumococcal Pcv13 Conj 05/18/2015 TDAP (7yrs+) 04/08/2013 ZOSTER VACCINE, LIVE 10/07/2012 Zoster Hzv Vacc Recombinant Inj Im 10/16/2018, Social History Tobacco Use Types Packs/Day Years Used Date Smoking Tobacco: Never Smokeless Tobacco: Never Tobacco Cessation:Counseling Given: Not Answered Alcohol Use Standard Drinks/Week Comments Never 0 (1 standard drink = 0.6 oz pur e alcohol) AUDIT-C Answer Date Recorded Q1: How often do you have a drink containing alc ohol? Never 03/21/2020 Average Number of Drinks Not on file 020 Frequency of Binge Drinking Not on file 03/07 PHQ-2 Answer Date Recorded Patient Health Questionnaire-2 Score 0 07/15/2024 Sex and Gender Information Value Date Recorded Sex Assigned at Not on file Gender Identity Not on file Sexual Orientation Not on file Last Filed Vital Signs Vital Sign Reading Time Taken Comments Blood Pressure 142/80 03/03/2024 3:44 PM CDT Pulse 64 03/03/2024 3:44 PM CDT Temperature 36.3 C (97.4 F) 03/03/2024 3:44 PM CDT Respiratory Rate 20 05/22/2022 3:04 PM CDT Oxygen Saturation 98% 03/03/2024 3:44 PM CDT Inhaled Oxygen Concentration - - Weight 94 kg (207 lb 4 oz) 07/15/2024 2:40 PM CD T Height 165.1 cm (5' 5 ) 07/15/2024 2:40 PM CDT Body Mass Index 34.49 07/15/2024 2:40 PM CDT Functional Status Functional Status Response Date of Assess ment Is person deaf or have serious hearing difficult y? No 03/21/2020 Is person blind or have serious difficulty seein g? No 03/21/2020 Does person have serious dif ficulty walking/climbing stairs? No 03/21/2020 Does person have difficulty dressing/bathing? No 03/21/2020 Does person have difficulty doing errands alone? No 03/21/2020 Cognitive Status Response Date of Assessm ent Does person have difficulty concentrating/remembering/making decisions? No 03/21/2020 Plan of Treatment Not on file Advance Directives * Full Code (Latest Code Status on File) Date Activated Date Inactivated Comments 03/21/2020 5:53 PM 03/25/2020 5:03 PM * Full Code Date Activated Date Inactivated Comments 03/19/2020 6:05 PM 03/21/2020 5:36 PM Care Teams Asbestos Brake Lining Finisher Relationship Specialty Start Date End Date Nna Blair PA [facility] - General 05/08/20
--- OUTSIDE RECORDS SUMMARY | 2024-11-20 08:37 | XMS_ITS ---
Author Organization [facility] Address [address] [place] [address] Care Team Providers Care Co Founder And Director Name Role Phone Jasmin Villar Primary Care Provider [phone] MEDICATIONS Medication SIG (Take, Route, Frequency, Duration) Notes Start Date End Date Status amLODIPine Besylate 5 MG 1 tablet Orally [...] at bedtime Orally Once a day Active Aspirin 81 MG 1 tablet Orally Once a day Active Melatonin 3 MG 1 tablet at bedtime as needed Orally Once a day Active Levothyroxine Sodium 88 MCG 1 tablet in the morning on an empty stomach Orally Once a day Active Donepezil HCl 10 MG 1 tablet at bedtime Orally Once a day Active Encounters Encounter Location Date Provider Diagnosis [facility] [address] [facility] [place] [address] 12/23/2023 Jasmin Villar PLAN OF TREATMENT No Information Progress Notes * Yola WORLEYhDOB: 0 (74 yo F)Acc No.[id number]:12/23/2023 Progress Notes Patient: Kriss WORLEY Provider: Jasmin Villar :1950 Age:73 Y Sex:Female Date:12/23/2023 Address:[address], [address], [place], [place] Subjective: * Chief Complaints: * * Medical History: * Medications: Taking Fexofenadine HCl 180 MG Tablet 1 tablet Swallow whole with water; do not take with fruit juices. Orally Once a day , Taking amLODIPine Besylate 5 MG Tablet 1 tablet Orally Once a day , Taking Aspirin 81 MG Tablet Chewable 1 tablet Orally Once a day , Taking Donepezil HCl 10 MG Tablet 1 tablet at bedtime Orally Once a day , Taking Levothyroxine Sodium 88 MCG Tablet 1 tablet in the morning on an empty stomach Orally Once a day , Taking Melatonin 3 MG Tablet 1 tablet at bedtime as needed Orally Once a day As needed, Taking Memantine HCl 10 MG Tablet 1/2 tablet daily. 1 tab at bedtime Orally Once a day , Taking Vitamin B 12 500 MCG Tablet 1 tablet Orally Once a day , Taking Vitamin D3 25 MCG (1000 UT) Tablet 1 tablet Orally Once a day Objective: Assessment: Plan: * Treatment: * Billing Information: * Visit Code: * Procedure Codes: Care Plan Details* * R INCIDENT ANALYST Sign off status: Pending * Provider: Jasmin Villar Date: 12/23/2023
--- OUTSIDE RECORDS SUMMARY | 2024-11-20 08:37 | XMS_ITS | Clinical Summary ---
Author Organization [facility] [employer] Address [address] [place] [address] Care Team Providers Care Occupational Therapy Technician Name Role Phone Nan Blair Primary Care Provider [phone] Source Comments [facility] [employer],non-owned Affiliates and Associated Physician Practices is amultiple site organization consisting of ambulatory clinics and hospital sitesin [place], [place], [place] and [place]. This disclosure is being madepursuant to the Care Everywhere program and may not contain all information available regarding this patient. Last updated 18.[facility] [employer] Allergies Active Allergy Reactions Criticality Noted Date Comments Codeine Dizziness 03/19/2020 Phenix Other Low 02/02/2019 Severe reaction-Kidney failure Severe [...] Mass Index 34.49 07/15/2024 2:40 PM CDT Plan of Treatment Health Maintenance Due Date Last Done Comments COLOGUARD (AGES 45-75) - COLON CA SCREENING 1950 COLON MONITORING 1950 COLONOSCOPY - COLON CA SCREENING 1950 CT COLONOGRAPHY - COLON CA SCREENING 1950 Colorectal Cancer Screening 1950 FIT - COLON CA SCREENING 1950 FLEX SIG - COLON CA SCREENING 1950 LIPID TESTING 1950 HEPATITIS C SCREENING 11/13/1967 MAMMOGRAM 02/05/2020 02/04/2018, 0210/2016, 06/09/2015 DTAP/TDAP/TD VACCINES (2 - Td or Tdap) 04/08/2023 04/08/2013 COVID-19 VACCINE ( - season) 2024 INFLUENZA VACCINE (#1) 2024 , 08/01/2021, 07/14/2020, Additional history exists DEPRESSION SCREENING 10/07/2024 07/15/2024, 03/03/2024, 08/13/2023, Additional history exists MEDICARE AWV CALENDAR YEAR 2024 Respiratory Syncytial Virus (RSV) Vaccine Pt: or over 60 yrs (1 - 1-dose 75+ series) 2024 ZOSTER VACCINE Completed 10/16/2018, 06/08, 10/07/2012 PNEUMOCOCCAL VACCINE 50+ Completed 019, 05/18/2015, 07/18/2011 BONE DENSITY TESTING Completed 05/07/2022, 02/04/2018, 06/09/2015 HEPATITIS B VACCINE Aged Out No longe r eligible based on patient's age to complete this topic HIB VACCINE Aged Out No longer eligi ble based on patient's age to complete this topic HPV VACCINE Aged Out No longer eligi ble based on patient's age to complete this topic MENINGOCOCCAL (Group B) VACCINE Aged Out No longer eligible based on patient's age to complete this topic MENINGOCOCCAL VACCINE Aged Out No rangel nando eligible based on patient's age to complete this topic Advance Directives * Full Code (Latest Code Status on File) Date Activated Date Inactivated Comments 03/21/2020 5:53 PM 03/25/2020 5:03 PM * Full Code Date Activated Date Inactivated Comments 03/19/2020 6:05 PM 03/21/2020 5:36 PM Care Teams Occupational Therapy Technician Relationship Specialty Start Date End Date Nan Blair PA PCP - General 05/08/20
--- OUTSIDE RECORDS SUMMARY | 2024-11-20 08:37 | XMS_ITS | Patient Health Summary ---
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 This disclosure is being madepursuant to the Care Everywhere program and may not contain all information available regarding this patient. Last updated 18.[facility] Allergies * Codeine(Dizziness) * Sadorus(Other) -Low Criticality * Morphine(Unknown) * Olanzapine(Psychiatric) -Medium Criticality * Penicillins(Urticaria,Swelling,Unknown) -Medium Criticality Medications * Be aware that medications may not be up to date on this document. Alwaysverify current medications with the patient. * levothyroxine (SYNTHROID) 88 MCG tablet(Started 09/04/2017) Take 88 mcg by mouth once daily * vitamin D3-cholecalciferol (CHOLECALCIFEROL) 25 MCG (1000 UNITS) tablet Take 1,000 Units by mouth once daily * amLODIPine (NORVASC) 5 MG tablet(Started 01/18/2022) Take 5 mg by mouth once daily * melatonin 5 MG tablet Take 5 mg by mouth at bedtime * cyanocobalamin (VITAMIN B-12) 1000 MCG tablet(Started 03/13/2022) Take 1 (one) tablet by mouth once daily 3 refills by 03/13/2023 * donepezil (Aricept) 10 MG tablet(Started 07/15/2024) Take 1 (one) tablet by mouth once daily Reasons: Alzheimer's Disease 3 refills by 07/15/2025 * memantine (Namenda) 10 MG tablet(Started 07/15/2024) Take 1 (one) tablet by mouth 2 times daily Reasons: Alzheimer's Disease 3 refills by 07/15/2025 Active Problems Problem Noted Date Diagnosed Date Late onset Alzheimer's disea se without behavioral disturbance 04/18/2021 Mild neurocognitive disorder 06/14/2020 Recurrent major depressive disorder, in full rem ission 03/22/2020 Primary osteoarthritis of right knee 08/15/2017 Essential (primary) hypertension 08/15/2017 Unsteady gait 11/09/2016 Other allergic rhinitis 08/14/2016 Atrial flutter 02/14/2016 Other specified hypothyroidism 12/30/2015 Vitamin D deficiency 12/30/2015 Resolved Problems Problem Noted Date Diagnosed Date Resolved Date Bipolar 1 disorder, depressed, moderate 03/03/2024 07/15/2024 Class 3 severe obesity due t o excess calories with serious comorbidity and body mass index (BMI) of 40.0 to 44.9 in adult 08/26/2019 2 Obstructive sleep apnea 08/14/201611/07 Immunizations * FLU VACCINE TRI IIV3 SPLIT PF IM (FLUVIRIN)(Given 10/03/2015) * INFLUENZA VACCINE, ADJUVANTED, TRIV. (FLUAD TRIVALENT; 65Y+) (AIIV3)(Given 07/03/2018) * INFLUENZA VACCINE, HIGH-DOSE, QUADR. (FLUZONE HIGH-DOSE QUADRIVALENT; 65Y+), 0.7 ML (HD-IIV4)(Given 07/22/2019, 06/07/2016) * INFLUENZA VACCINE, QUADR. (FLUZONE; FLULAVAL; FLUARIX; AFLURIA QUADRIVALENT; 6MO+), 0.5 ML (IIV4)(Given 07/14/2020) * PNEUMOCOCCAL PPSV23(Given 02/02/2019, 07/18/2011) * Pneumococcal Pcv13 Conj(Given 05/18/2015) * TDAP (7yrs+)(Given 04/08/2013) * ZOSTER VACCINE, LIVE(Given 10/07/2012) * Zoster Hzv Vacc Recombinant Inj Im(Given 10/16/2018, 07/03/2018) Social History Tobacco Use Types Packs/Day Years [...] Mass Index 34.49 07/15/2024 2:40 PM CDT Procedures * PROC POLYSOMNOGRAPHY, SPLIT NIGHT(Performed 02/03/2022) Performed for At risk for sleep apnea, KAI (obstructive sleep apnea) * AMBULATORY REFERRAL TO SLEEP SPECIALIST(Performed 12/19/2021) Performed for At risk for sleep apnea * LITHIUM LEVEL(Performed 03/24/2020) * CARDIAC EKG ORDER(Performed 03/20/2020) * SARS-COV-2 (COVID-19) RAPID(Performed 03/20/2020) * URINE DRUG SCREEN IMMUNOASSAY(Performed 03/19/2020) * URINALYSIS W/MICROSCOPIC NO CULTURE(Performed 03/19/2020) * TSH(Performed 03/19/2020) * ALCOHOL ETHYL BLOOD(Performed 03/19/2020) * CBC W AUTO DIFFERENTIAL(Performed 03/19/2020) * BASIC METABOLIC PANEL (CALCIUM TOTAL)(Performed 03/19/2020) * EKG 12-LEAD(Performed 03/19/2020) Performed for Suicide ideation * DERMATOPATHOLOGY(Performed 04/17/2017) Results * PROC POLYSOMNOGRAPHY, SPLIT NIGHT (02/03/2022 11:18 PM CDT) Narrative Erika Salcedo MD - 02/03/2022 11:18 PM CDT Erika Salcedo MD 02/03/2022 11:51 PM Patient Name: Kriss Worley : 1950 Date of Study: 01/23/2022 Referring Physician: Erika Salcedo MD [address] [place] [address] This study was performed following all recommended and current standards and scoring per the [place] [employer] and AASM Scoring Manual. FULL NIGHT DIAGNOSTIC POLYSOMNOGRAM INTERPRETATION DIAGNOSTIC STUDY SLEEP ARCHITECTURE AND EEG ANALYSIS: During this diagnostic in lab sleep study, the patient slept for 364 minutes and had a sleep efficiency of 60%. The patient's initial sleep latency was 37 minutes. The initial REM latency was 97 minutes. The patient had 29 % of their sleep in the supine position. No EEG abnormalities were noted on limited EEG (6 channels) montage. (bilateral Frontal, Central, and Occipital Leads) The sleep architecture were as follows: stage N1: 7%; stage N2: 50%; stage N3: 15%; stage REM: 27%. Chin and limb EMG tone was within normal limits during REM sleep. No complex motor behaviors were noted during sleep. RESPIRATORY ANALYSIS: The patient's overall apnea-hypopnea index (AHI) was 2.6 with a minimum oxygen saturation of 83% during REM sleep and 87% during non-REM sleep. The respiratory-related arousal index was 5.4. The overall respiratory disturbance index (RDI) was at 7.9 The supine AHI was 7.2 and the supine RERA index was 5 The lateral AHI was 0.7 and the lateral RERA index was 5. REM sleep AHI was 6. The patient's periodic limb movement index was 22.4 per hour. Approximately 2.3/hour of the leg movements was associated with arousals. EKG showed Normal Sinus Rhythm IMPRESSION: This diagnostic sleep study did not demonstrated obstructive sleep apnea, only primary snoring. Periodic limb movement of sleep RECOMMENDATIONS: Patient will be given results and we will recommended anti inflammatory therapy for chronic rhinitis and ENT referral . In addition patient had elevated numbers of periodic limb movement, if patient is symptomatic, we will order lab work for iron studies and sleep clinic follow up to discuss further therapy including gabapentin vs dopamine agonist. Attending physician performed epoch by epoch review of raw data of the entire polysomnogram. Electronically signed: Erika Salcedo MD Instrument Setter of Sleep Medicine [facility] Sleep Disorders [facility] Erika Salcedo MD PROCEDURE/MIN OR SURGICAL ORDERABLES * Ref to Sleep Specialist - [facility]us (12/19/2021 3:02 PM CDT) Freeman Chung MD OUTPATIENT REFERRALS * (ABNORMAL) LITHIUM LEVEL (03/24/2020 5:57 AM CDT) Sadorus 0.4(L) 0.6 - 1.2 mmol/L 03/24/2020 6:15 AM CDT [facility] Blood BLOOD SPECIMEN / Unknown Venipuncture / Unknown 03/24/2020 5:57 AM CDT 03/24/2020 6:01 AM CDT Toro Portillo MD LAB - CHEMISTRY [place] [facility] Organization Address City/State/[facility] Co de Phone Number [facility] [address], [place] [id number] * CARDIAC EKG ORDER (03/20/2020 1:39 PM CDT) Narrative 03/20/2020 1:39 PM CDT Ordered by an unspecified provider. Scanned Document CARDIAC SERVICES ORD ERABLES * SARS-COV-2 (COVID-19) RAPID (03/20/2020 2:28 AM CDT) COVID-19 PCR Not detected Not detected, Invalid 03/20/2020 3:36 AM CDT [facility] Microbiology SPECIMEN FROM NASOPHARYNGEAL STRUCTURE / Unknown Collection / Unknown 03/20/2020 2:28 AM CDT 03/20/2020 2:36 AM CDT [facility] - 03/20/2020 3:36 AM CDT The Cepheid Xpert Xpress SARS-COV-2 has been authorized by the Food and Drug administration (FDA) under an Emergency Use Authorization (EUA). This test has been validated in accordance with the FDA's guidance document Policy for Diagnostic Testing in Laboratories Certified to perform High Complexity Testing under CLIA prior to Emergency Use Authorization for Coronavirus Disease-2019 during the Public Health Emergency issued on December 05, 2019. FDA independent review of this validation is pending. This test is only authorized for the duration of time the declaration that circumstances exist justifying the authorization of emergency use of in vitro diagnostic tests for detection of SARS-COV-2 virus and/or diagnosis of COVID-19 infection under 564(b)(1)of the Act, 21 U.S.C. 360bbb-3 (b) (1), unless the authorization is terminated or revoked sooner. Anson Ramsey DO LAB - MICROBIOLOG Y ORDERABLES [address] [address] [phone] * (ABNORMAL) URINALYSIS W/MICROSCOPIC NO CULTURE (03/19/2020 7:35 PM CDT) Color UA Colorless Straw, Yellow, Colorless 03/19/2020 7:47 PM CDT [facility] Clarity UA Clear Clear, Slt Cloudy 03/19/2020 7:47 PM CDT [facility] Specific [employer] UA 1.004(L) 1.005 - 1.030 03/19/2020 7:47 PM CDT [facility] pH UA 5.0 5.0 - 8.0 pH 03/19/2020 7:47 PM CDT [facility] Protein UA Negative Negative mg/dL 03/19/2020 7:47 PM CDT [facility] Glucose UA Negative Negative mg/dL 03/19/2020 7:47 PM CDT [facility] Ketone UA Negative Negative mg/dL 03/19/2020 7:47 PM [facility] Bilirubin UA Negative Negative mg/dL 03/19/2020 7:47 PM [facility] Blood UA Negative Negative 03/19/2020 7:47 PM [facility] Nitrite UA Negative Negative 03/19/2020 7:47 PM [facility] Leukocyte Esterase Negative Negative 03/19/2020 7:47 PM [facility] Urobilinogen UA Negative Negative mg/dL 03/19/2020 7:47 PM [facility] RBC UA None Seen None Seen, 0-2, 3-5 /HPF 03/19/2020 7:47 PM [facility] WBC UA 0-5 None Seen, 0-5 /HPF 03/19/2020 7:47 PM [facility] Bacteria UA Trace None, Trace /HPF 03/19/2020 7:47 PM [facility] Squamous Epithelial Cells UA 0-2 None Seen, 0-2 /HPF 03/19/2020 7:47 PM [facility] Renal Epithelial Cells UA 0-2 None Seen, 0-2 /HPF 03/19/2020 7:47 PM [facility] Mucus UA 1+ None, 1+ /LPF 03/19/2020 7:47 PM [facility] Urine URINE SPECIMEN OBTAINED BY CLEAN CATCH PROCEDURE / Unknown Collection / Unknown 03/19/2020 7:35 PM CDT 03/19/2020 7:38 PM CDT Narrative [facility] - 03/19/2020 7:47 PM CDT Charlie Lara III, MD LAB - URINALYS IS ORDERABLES [address] [address], [facility] [phone] * DRUG SCREEN TOX URINE PANEL (03/19/2020 7:35 PM CDT) Amphetamines Screen Urine Negative Negative: < 1000 ng/mL 03/19/2020 7:54 PM [facility] Barbiturates Screen Urine Negative Negative: < 200 ng/mL 03/19/2020 7:54 PM CDT [facility] Benzodiazepine Screen Urine Negative Negative: < 200 ng/mL 03/19/2020 7:54 PM [facility] Opiates Urine Negative Negative: < 300 ng/mL 03/19/2020 7:54 PM CDT [facility] Cocaine Metabolites Urine Negative Negative: < 300 ng/mL 03/19/2020 7:54 PM T [facility] Phencyclidine Screen Urine Negative Negative: < 25 ng/ml 03/19/2020 7:54 PM [facility] Cannabinoids Screen Urine Negative Negative: <50 ng/mL 03/19/2020 7:54 PM T [facility] Methadone Screen Urine Negative Negative: < 300 ng/mL 03/19/2020 7:54 PM [facility] Fentanyl Screen Urine Negative Negative: <1.0 ng/mL 03/19/2020 7:54 PM [facility] Urine URINE / Unknown Collection / Unknown 03/19/2020 7:35 PM CDT 03/19/2020 7:39 PM CDT Narrative [facility] - 03/19/2020 7:54 PM CDT The Urine Toxicology Screening Panel does not screen for Propoxyphene, Meprobamate, Carisoprodol, Trazodone, [id number] medications and/or volatiles (Acetone, Isopropanol, Methanol or Ethylene Glycol). Ethanol, Salicylate, Acetaminophen, Tricyclic Antidepressants and several therapeutic drugs may be individually assayed in serum or plasma specimen. Toxicology testing by the [facility] is an aid to medical diagnosis and treatment of patients. No documented chain of custody was maintained. Results are intended to be used for clinical purposes only. Charlie Lara III, MD LAB - URINE CH EMISTRY ORDERABLES [address] [address], [facility] [phone] * (ABNORMAL) CBC W AUTO DIFFERENTIAL (03/19/2020 2:57 PM CDT) WBC 7.3 3.5 - 10.5 10 3/uL 03/19/2020 3:15 PM CDT [facility] RBC 4.47 3.90 - 5.00 10 6/uL 03/19/2020 3:15 PM [facility] Hemoglobin 13.0 12.0 - 15.5 g/dL 03/19/2020 3:15 PM [facility] Hematocrit 41.2 35.0 - 45.0 % 03/19/2020 3:15 PM [facility] MCV 92.2 81.0 - 97.0 fL 03/19/2020 3:15 PM [facility] MCH 29.1 28.0 - 34.0 pg 03/19/2020 3:15 PM [facility] MCHC 31.6(L) 32.0 - 36.0 g/dL 03/19/2020 3:15 PM [facility] Platelet Count 249 150 - 400 10 3/uL 03/19/2020 3:15 PM [facility] RDW-SD 46.8 36.0 - 50.0 fL 03/19/2020 3:15 PM [facility] RDW-CV 13.8 11.2 - 14.8 % 03/19/2020 3:15 PM [facility] MPV 10.4 9.3 - 12.8 fL 03/19/2020 3:15 PM [facility] nRBC Absolute 0.00 0 10 3/uL 03/19/2020 3:15 PM [facility] nRBC Auto 0.0 0 /100 WBC 03/19/2020 3:15 PM [facility] Neutrophils % 69.2 35.0 - 70.0 % 03/19/2020 3:15 PM [facility] Lymphocytes % 22.5 19.7 - 55.1 % 03/19/2020 3:15 PM [facility] Monocytes % 6.7 3.0 - 15.0 % 03/19/2020 3:15 PM [facility] Eosinophils % 1.1 0.0 - 6.0 % 03/19/2020 3:15 PM [facility] Basophil % 0.4 0.0 - 1.5 % 03/19/2020 3:15 PM [facility] Neutrophils Absolute 5.1 1.6 - 7.0 10 3/uL 03/19/2020 3:15 PM [facility] Lymphocyte Absolute 1.6 0.8 - 2.9 10 3/uL 03/19/2020 3:15 PM CDT [facility] Monocytes Absolute 0.49 0.14 - 0.66 10 3/uL 03/19/2020 3:15 PM T [facility] Eosinophils Absolute 0.08 0.00 - 0.45 10 3/uL 03/19/2020 3:15 PM CDT [facility] Basophils Absolute 0.03 0.00 - 0.06 10 3/uL 03/19/2020 3:15 PM T [facility] Immature Granulocytes % 0.1 0.0 - 1.0 % 03/19/2020 3:15 PM [facility] Blood BLOOD SPECIMEN / Unknown Venipuncture / Unknown 03/19/2020 2:57 PM CDT 03/19/2020 3:08 PM CDT Charlie Lara III, MD LAB - HEMATOLO GY ORDERABLES Performing Organization Address [facility] Co de Phone Number [address] [address] [phone] * BASIC METABOLIC PANEL (CALCIUM TOTAL) (03/19/2020 2:57 PM CDT) BUN 11 7 - 26 mg/dL 03/19/2020 3:38 PM [facility] Creatinine 0.7 0.6 - 1.2 mg/dL 03/19/2020 3:38 PM [facility] Sodium 140 136 - 145 mmol/L 03/19/2020 3:38 PM [facility] Potassium 4.0 3.5 - 4.5 mmol/L 03/19/2020 3:38 PM [facility] Chloride 107 98 - 107 mmol/L 03/19/2020 3:38 PM [facility] CO2 25 22 - 29 mmol/L 03/19/2020 3:38 PM [facility] Glucose 89 70 - 115 mg/dL 03/19/2020 3:38 PM [facility] Calcium 9.2 8.4 - 10.2 mg/dL 03/19/2020 3:38 PM [facility] Anion Gap 12 8 - 18 03/19/2020 3:38 PM CDT [facility] BUN/Creatinine Ratio 16 7 - 23 03/19/2020 3:38 PM CDT [facility] Osmolality Calculated 289 270 - 300 mOsm/kg 03/19/2020 3:38 PM CDT [facility] eGFR >60 >60 mL/min/1.7 3 m2 03/19/2020 3:38 PM CDT [facility] Blood BLOOD SPECIMEN / Unknown Venipuncture / Unknown 03/19/2020 2:57 PM CDT 03/19/2020 3:08 PM CDT Charlie Lara III, MD LAB - CHEMISTR Y ORDERABLES Performing Organization Address [facility]/[place] [address], [facility] [phone] * ALCOHOL ETHYL BLOOD (03/19/2020 2:57 PM CDT) Interpretation Ethanol None Detected None Detected mg/dL 03/19/2020 3:38 PM CDT [facility] Comment:Ethanol levels less than 10 mg/dL are resulted as None detected . Blood BLOOD SPECIMEN / Unknown Venipuncture / Unknown 03/19/2020 2:57 PM CDT 03/19/2020 3:08 PM CDT Charlie Lara III, MD LAB - CHEMISTR Y ORDERABLES Performing Organization Address [facility]/[place] [address], [facility] [phone] * TSH (03/19/2020 2:57 PM CDT) TSH 1.603 0.350 - 4.940 uIU/mL 03/19/2020 3:58 PM CDT [facility] Blood BLOOD SPECIMEN / Unknown Venipuncture / Unknown 03/19/2020 2:57 PM CDT 03/19/2020 3:08 PM CDT Jennifer Sánchez MD LAB - CHEMISTRY [place] Performing Organization Address City/[facility]/ZIP Co de Phone Number [address] [address], [facility] [phone] * EKG 12-LEAD (03/19/2020 2:56 PM CDT) Ventricular Rate 54 BPM [facility] Atrial Rate 54 BPM H [facility] P-R Interval 184 ms [facility] QRS Duration ms 98 ms [facility] Q-T Interval ms 424 ms [facility] MUSE QTC Calculation (Bezet) 402 ms [facility] Calculated P [place] 66 degrees [facility] Calculated R [place] 33 degrees [facility] Calculated T [place] 62 degrees [facility] MUSE Interpretation EKG SINUS BRADYCARDIA OTHERWISE NORMAL ECG WHEN COMPARED WITH ECG OF 05-DEC-2001 14:35, PREMATURE VENTRICULAR COMPLEXES ARE NO LONGER PRESENT Confirmed by fellow Karri Vazquez ([id number]) on 03/19/2020 7:21:58 PM Confirmed by Zaki Deal [id number]) on 03/23/2020 3:38:35 PM [facility] MUSE 03/19/2020 2:56 PM CDT 03/23/2020 3:38 PM CDT Charlie Lara III, MD ECG ORDERABLES Performing Organization Address [facility] Co de Phone Number [facility] * PATHOLOGY TISSUE FOR DERMATOLOGY (04/17/2017 12:00 AM CDT) Result CASE: [id number] PATIENT: KRISS WORLEY PATHOLOGIC DIAGNOSIS: Left arm: LEUKOCYTOCLASTI C VASCULITIS CLINICAL DATA: Vasculitis vs other. GROSS DESCRIPTION: Received is one formalin filled container labeled with the patients name and designated left arm. The specimen consists of a punch biopsy measuring [id number]. The specimen is bisected and submitted in 1 cassette. Jar 0. MICROSCOPIC DESCRIPTION: Sections show fibrin, neutrophils, and neutrophil fragments near vessels. There are also extravasated erythrocytes and a mixed cellular infiltrate. Electronically signed out by Sherly Christian M.D. 04/23/2017 3:10:52PM [facility] Comment: Performed at: Dermatopathology Laboratory [facility] - Department of Dermatology [address] [place] [address], [address]th [place] [address] Phone number: [phone] FAX: [phone] 04/17/2017 04/22/2017 Nupur Whitney MD LAB - PATHOLOGY/C YTOLOGY ORDERABLES [facility] 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
--- OUTSIDE RECORDS SUMMARY | 2024-11-20 08:37 | XMS_ITS ---
Author Organization [facility] Address [address] [place] [address] Care Team Providers Care Wardrobe Technician Name Role Phone Jasmin Villar Primary Care Provider Encounters Encounter Location Date Provider Diagnosis [facility] [address] [place] [address] 09/11/2023 Jasmin Villar PLAN OF TREATMENT No Information Progress Notes * Yola WORLEYhDOB: 0 (72 yo F)Acc No.[id number]:09/11/2023 Patient: Kriss WORLEY :1950 Age:72 Y Sex:Female Address:[address], [address], [place] [address] * true * Date:
[2024-11-20 09:29] LABS: Basophils Absolute Auto 0.1 K/mm3 (0.0-0.1); Basophils Percent Auto 0.6 % (0.2-1.2); Eosinophils Percent Auto 0.2 % (0-4.4); Hematocrit 39.7 % (37.0-47.0); Hemoglobin 12.4 g/dL (12.0-15.0); Immature Granulocyte Absolute 0.04 K/mm3 (0.00-0.031); Immature Granulocyte Percent A 0.4 % (0-0.5); Lymphocytes Percent Auto 9.5 % (18.3-44.2); Mean Corpuscular HGB Conc 31.2 g/dl (32-36); Mean Corpuscular Hemoglobin 27.3 pg (26-34); Mean Corpuscular Volume 87.3 fl (80-100); Mean Platelet Volume 9.9 fl (7.4-10.4); Monocytes Absolute Auto 0.6 K/mm3 (0.1-0.6); Monocytes Percent Auto 5.3 % (2.6-8.5); Neutrophils Absolute Auto 8.8 K/mm3 (1.3-6.7); Platelet Count Result 315 k/mm3 (150-375); Red Blood Count 4.55 M/mm3 (4.2-5.4); Red Cell Distribution Width 15.3 % (11.5-14.5); White Blood Count 10.5 K/mm3 (4.5-10.0)
[2024-11-20 09:36] LABS: Add Urine Microscopic? YES; Appearance Urine Clear (Clear); Bacteria Urine None Seen /hpf; Bilirubin Urine Negative (Negative); Blood Urine Negative (Negative); Color Urine Yellow (Yellow); Glucose Urine UA Negative (Negative); Ketones Urine 1+ mg/dL (Negative); Leukocyte Esterase Ur Trace LEU/UL (Negative); Nitrate Urine Negative (Negative); Non Pathogenic Casts 0-2; Protein Urine 1+ mg/dL (Negative); RBC Urine 0-2 /hpf (0-2); Specific Grav Ur 1.014 (1.001-1.035); Squamous Epithelial Cell Urine None Seen /hpf (Few); WBC Urine 0-5 /hpf (0-3)
[2024-11-20 09:41] LABS: Alanine Aminotransferase 15 U/L (6-35); Albumin Level 3.9 g/dL (3.5-5.1); Alkaline Phosphatase 126 U/L (38-126); Anion Gap 11 mmol/L (4-12); Aspartate Amino Transferase 23 U/L (14-36); Blood Urea Nitrogen 9 mg/dL (7-17); Calcium 9.5 mg/dL (8.4-10.2); Carbon Dioxide 23 mmol/L (22-30); Chloride 105 mmol/L (98-107); Estimated CRCL calculation 88 ml/min; Estimated Glomerular Filt Rate > 60; Glucose 100 mg/dL (65-110); Lactic Acid Reflex 1.7 mmol/L (0.7-2.0); Potassium 3.8 mmol/L (3.4-5.0); Sodium 139 mmol/L (137-145)
[2024-11-20 09:52] LABS: Troponin I < 0.012 ng/mL (0.000-0.034)
--- NOTE | 2024-11-20 10:12 | ED.SEIZURE ---
HPI - Seizure General Chief Complaint: Seizure Stated Complaint: seizure Time Seen by Provider: 11/20/24 07:45 Source: patient and EMS Mode of arrival: EMS History of Present Illness HPI Narrative: 74-year-old with a history of dementia, hypertension remote history of seizure disorder was on Keppra was brought in from [facility] with the complaints of having seizure last lasted for less than a minute. Upon arrival to the ER patient is wide awake alert not quite sure why she is here. She presently denies having headache or chest pain. Her daughter who is at the bedside states that she was unable to tolerate Keppra in the past higher last known seizure activity was a year ago when they were on a cruise. No history of fevers or chills. Denies any falls. Daughter also some mention that she is scheduled to see a neurologist in a month. MD complaint: possible seizure Onset (ago): hour(s) Description of Episode: post-event confusion Duration of episode: 1 -: minutes(s) Witnessed: Yes - by Other (shelter staff) Trauma: No Seizure History: Yes Place: shelter Possible Precipitating Event: none Related Data Home Medications ?Medication ?Instructions ?Recorded ?Confirmed ?Last Taken ?Type amlodipine 5 mg tablet 5 mg PO DAILY 05/03/24 05/03/24 Unknown History aspirin 81 mg chewable tablet 81 mg PO DAILY 05/03/24 05/03/24 Unknown History cyanocobalamin (vitamin B-12) 500 500 mcg PO DAILY 05/03/24 05/03/24 Unknown History mcg tablet donepezil 10 mg tablet 10 mg PO DAILY 05/03/24 05/03/24 Unknown History levothyroxine 88 mcg tablet 88 mcg PO DAILY 05/03/24 05/03/24 Unknown History memantine 10 mg tablet 15 mg PO DAILY 05/03/24 05/03/24 Unknown History Allergies Allergy/AdvReac Type Severity Reaction Status Date / Time No Known Allergies Allergy Verified 09/25/24 10:44 Review of Systems Review of Systems: All systems reviewed & are unremarkable except as noted in HPI and below Constitutional: Constitutional: Reports no additional constitutional complaints Eyes: Eyes: Reports no additional eye complaints ENT: Reports system reviewed and no additional complaints, except as documented Cardiovascular: Cardiovascular: Reports no additional cardiovascular complaints Respiratory: Respiratory: Reports no additional respiratory complaints Gastrointestinal: Gastrointestinal: Reports no additional gastrointestinal complaints Musculoskeletal: Musculoskeletal: Reports no additional musculoskeletal complaints Integumentary/Breasts: Skin/Breast: Reports system reviewed and no additional complaints, except as docu Neurologic: Reports as per HPI Exam Narrative: GENERAL: Well-appearing, well-nourished, and in no acute distress. HEAD: Normocephalic, atraumatic. EYES: PERRLA and EOMI. ENT: Nares clear, no rhinorrhea or epistaxis. Mucous membranes moist. NECK: Supple. CHEST: Clear to auscultation. No respiratory distress. HEART: Regular rate and rhythm. No murmur heard. Normal peripheral pulses. ABDOMEN: Soft, nontender, nondistended, normal active bowel sounds. EXTREMITIES: Normal range of motion. No edema. SKIN: Warm, dry, no rash. NEURO: No focal deficits. Alert and oriented x3. PSYCH: Normal mood and affect. Course Course Emergency Course: Patient remained asymptomatic while she is here in the ER no further seizure episodes. I did discuss lab work, CT and EKG findings with the patient and the daughter. I recommended EEG on outpatient basis. Also informed her that we do not have Neurology at this facility today. Advised her to contact her primary doctor for further workup. And they do feel comfortable going home. Vital Signs Vital signs: Vital Signs Temperature 36.4 C 11/20/24 07:29 Pulse Rate 128 H 11/20/24 07:29 Respiratory Rate 20 11/20/24 07:29 Blood Pressure 141/91 H 11/20/24 07:29 Pulse Oximetry 94 11/20/24 07:29 Temperature 36.4 C 11/20/24 07:29 Pulse Rate 128 H 11/20/24 07:29 Respiratory Rate 20 11/20/24 07:29 Blood Pressure 141/91 H 11/20/24 07:29 Pulse Oximetry 94 11/20/24 07:29 MDM - Seizure Differential Diagnosis Differential diagnosis: Likely focal seizure, generalized seizure and epileptic seizure Medical Records Attestation: I reviewed the patient's medical records. Lab Data Attestation: I reviewed the patient's lab results. 11/20/24 09:22 11/20/24 09:22 Labs: Lab Results 11/20/24 Range/Units 09:22 WBC 10.5 H (4.5-10.0) K/mm3 RBC 4.55 (4.2-5.4) M/mm3 Hgb 12.4 (12.0-15.0) g/dL Hct 39.7 (37.0-47.0) % MCV 87.3 (80-100) fl MCH 27.3 (26-34) pg MCHC 31.2 L (32-36) g/dl RDW 15.3 H (11.5-14.5) % Plt Count 315 (150-375) k/mm3 MPV 9.9 (7.4-10.4) fl Immature Gran % (Auto) 0.4 (0-0.5) % Neut % (Auto) 84.0 H (45.5-73.1) % Lymph % (Auto) 9.5 L (18.3-44.2) % [place] % (Auto) 5.3 (2.6-8.5) % Eos % (Auto) 0.2 (0-4.4) % Baso % (Auto) 0.6 (0.2-1.2) % Lymph # (Auto) 1.00 (0.9-3.2) K/mm3 [place] # (Auto) 0.6 (0.1-0.6) K/mm3 Eos # (Auto) 0.0 (0-0.3) K/mm3 Baso # (Auto) 0.1 (0.0-0.1) K/mm3 Abs Immat Gran (auto) 0.04 H (0.00-0.031) K/mm3 Absolute Neuts (auto) 8.8 H (1.3-6.7) K/mm3 Absolute Nucleated RBC 0.000 (0.0-0.012) K/mm3 Nucleated RBC % 0.0 (0.0-0.2) % Sodium 139 (137-145) mmol/L Potassium 3.8 (3.4-5.0) mmol/L Chloride 105 (98-107) mmol/L Carbon Dioxide 23 (22-30) mmol/L Anion Gap 11 (4-12) mmol/L BUN 9 (7-17) mg/dL Creatinine 0.50 L (0.7-1.0) mg/dL Estim Creat Clear Calc 88 ml/min Estimated GFR > 60 (59 - ) Glucose 100 (65-110) mg/dL Lactic Acid 1.7 (0.7-2.0) mmol/L Calcium 9.5 (8.4-10.2) mg/dL Total Bilirubin 1.0 (0.2-1.3) mg/dL AST 23 (14-36) U/L ALT 15 (6-35) U/L Alkaline Phosphatase 126 (38-126) U/L Troponin I < 0.012 (0.000-0.034) ng/mL Total Protein 7.0 (6.3-8.2) g/dL Albumin 3.9 (3.5-5.1) g/dL Urine Color Yellow (Yellow) Urine Appearance Clear (Clear) Urine pH 7.0 (5.0-9.0) Ur Specific [place] 1.014 (1.001-1.035) Urine Protein 1+ H (Negative) mg/dL Urine Glucose (UA) Negative (Negative) mg/dL Urine Ketones 1+ H (Negative) mg/dL Ur Blood (Man) Negative (Negative) Urine Nitrate Negative (Negative) Urine Bilirubin Negative (Negative) Urine Urobilinogen 2.0 H (<2.0) mg/dL Leukocyte Esterase Rfl Trace H (Negative) CALLUM/UL Urine RBC 0-2 (0-2) /hpf Urine WBC 0-5 (0-3) /hpf Ur Squamous Epith Cells None seen (Few) /hpf Urine Bacteria None seen /hpf Urine Casts 0-2 Imaging Data Radiologist's impression: ITS Impressions Head CT 11/20/24 08:02 IMPRESSION: 1. Stable extensive nonspecific cerebral white matter disease, which likely represents chronic small vessel ischemic disease. ECG Data EKG #1: ECG completion date: 11/20/24 ECG completion time: 10:18 EKG Interpretation: atrial fibrillation (131) and no ST changes Discharge Plan Discharge Clinical Impression: Epileptic seizure Patient Disposition: [facility]As[facility] Living Condition: Stable Instructions: Epilepsy (ED) Additional Instructions: Continue home medications recommend follow-up with a neurologist on outpatient basis also consider EEG. Please contact your primary doctor for further evaluation and management Patient Language: Bengali Prescriptions: No Action donepezil 10 mg tablet 10 mg PO DAILY amlodipine 5 mg tablet 5 mg PO DAILY levothyroxine 88 mcg tablet 88 mcg PO DAILY cyanocobalamin (vitamin B-12) 500 mcg tablet 500 mcg PO DAILY aspirin 81 mg tablet,chewable 81 mg PO DAILY memantine 10 mg tablet 15 mg PO DAILY amoxicillin-pot clavulanate 875-125 mg tablet 1 tablet PO Q12H 5 Days Qty: 10 0RF Follow-up/Referrals: Silvino Goncalves MD [Physician] - UNKNOWN,DOCTOR [Primary Care Provider] - Time of Disposition: 10:21
== END 2024-11-20 10:43 ==
PROVIDERS: Emergency Provider Family Medicine
DX: G40.909 Epilepsy, unspecified, not intractable, without status epilepticus (principal); F03.90 Unspecified dementia, unspecified severity, without behavioral disturbance, psychotic disturbance, mood disturbance, and anxiety; I10 Essential (primary) hypertension; Z79.899 Other long term (current) drug therapy; I48.91 Unspecified atrial fibrillation; R94.31 Abnormal electrocardiogram [ECG] [EKG]
CPT/HCPCS: 36415; 70450; 80053; 81001; 83605; 84484; 85025; 93005; 99284

== ENCOUNTER 2025-01-28 18:19 | Inpatient (IN) | payer MEDICARE, SELFPAY ==
[2025-01-28] VITALS (11 sets, daily range): BP systolic 120–143; BP diastolic 67–107; PULSE 99–156; RESP 16–25; TEMP 36.4; O2SAT 93–100
--- NOTE | ~2025-01-28 | CT_ITS ---
CLINICAL INDICATION: Abnormal chest x-ray COMPARISON: Single frontal view of the chest, performed approximately 2 hours earlier. TECHNIQUE: Multiple contiguous axial images of the chest was performed following the administration o f intravenous contrast. This CT examination was performed utilizing dose reduction techniques. DLP: 205 mGy-cm FINDINGS/OBSERVATIONS: LUNG:Cylindrical bronchiectasis detected bilaterally. The remainder of the lungs are otherwise clear. HEART: The heart is of normal size, with a small pericardial effusion. MEDIASTINUM: Significant mediastinal lymphadenopathy is identified, possibly corresponding to the abnormality seen on chest radiograph. Enlarged, morphologically suspicious lymph nodes are identified within the right paratracheal, aortop ulmonary window, subcarinal, and bilateral hilar luisa stations. The largest lymph node is within the right paratracheal region measuring 17 mm in short axis dimensio n. Multiple lymph nodes are identified within the bilateral axilla, although these demonstrate a robust fatty hilum, and are not pathologically enlarged. SOFT TISSUES OF THE CHEST: Unremarkable. BONES OF THE CHEST: No acute fracture. No lytic or blastic lesions are identified. UPPER ABDOMEN: The gallbladder is surgically absent. No significant lymphadenopathy is appreciated within the upper abdomen. IMPRESSION: Morphologically suspicious, pathologically enlarged lymph nodes within the mediastinum, as detailed a raturo. This likely represents the abnormality seen on frontal view of the chest, performed 2 hours earlier. Reviewed, dictated and finalized at location A. IMPRESSION: Morphologically suspicious, pathologically enlarged lymph nodes within the medi astinum, as detailed above. This likely represents the abnormality seen on frontal view of the chest, perfo rmed 2 hours earlier.
--- NOTE | ~2025-01-28 | CT_ITS ---
History: Altered mental status PROCEDURE: CT head without contrast. COMPARISON: 11/20/2024 TECHNIQUE: Axial imaging of the head performed from the skull base to the vertex without IV contrast. Sagittal a nd coronal reformations obtained. DLP: 681 mGy-cm FINDINGS: The ventricles are enlarged. The dilatation of the ventricles is proportional to the degree of sulcal prominence, not uncommon in the senescent brain. Decreased attenuation is identified within the periventricular white matter, likely secondary to micr ovascular ischemic disease, in a patient of this age. There is no mass, mass effect or midline shift. There is no abnormal extra-axial fluid collection or intracranial hemorrhage. Visualized paranasal sinuses are clear. The mastoid air cells are well aerated. No acute displaced fractures within the overlying cranium. Impression: No acute intracranial hemorrhage or suspicious mass effect. Reviewed, dictated and finalized at location A. Impression: No acute intracranial hemorrhage or suspicious mass effect.
--- NOTE | ~2025-01-28 | XR_ITS ---
EXAMINATION: XR knee LT 3V, XR knee RT 3V DATE: 01/30/2025 08:52 INDICATION: Bilateral knee pain post fall TECHNIQUE: 1. Anteroposterior, oblique and crosstable lateral views of the right knee were obtained. 2. Anteroposterior, oblique and crosstable lateral views of the left knee were obtained. COMPARISON: None. FINDINGS: Normal alignment at the left knee. There is mild right genu varum resulting from severe joint space n arrowing in the medial compartment. No fracture at either knee. Additional severe osteoarthritis the lateral compartment of the left knee, moderate osteoarthritis in the bilateral patellofemoral compart ments and mild osteoarthritis in the medial compartment of the left knee lateral compartment of the r ight knee. Chondrocalcinosis seen both knees. No joint effusion at either knee. Heterotopic ossicles versus phleboliths project over the soft tissues at the anterior lower legs. IMPRESSION: 1. No joint effusion or acute osseous abnormality at either knee. 2. 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 Reviewed, dictated and finalized at location A. IMPRESSION: 1. No joint effusion or acute osseous abnormality at either knee. 2. 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
--- NOTE | ~2025-01-28 | XR_ITS ---
CHEST RADIOGRAPH CLINICAL HISTORY: chest pain . COMPARISON: None available TECHNIQUE: Single portable view of the chest. FINDINGS Irregularity of the air column within the distal trachea, possibly secondary to positioning for which CT examination of the chest is recommended. The remainder of the cardiomediastinal silhouette is otherwise unremarkable. Coarse interstitial lung markings are detected bilaterally. The lungs are otherwise clear. IMPRESSION: Irregularity of the air column within the distal trachea, possibly secondary to positioning for which CT examination of the chest is recommended. Reviewed, dictated and finalized at location A.
--- OUTSIDE RECORDS SUMMARY | 2025-01-28 18:23 | XMS_ITS | Encounter Summary ---
Author Organization [facility] Facility Care Team Providers Care Distribution Field Technician Name Role Phone Nan Blair Primary Care Provider [phone] Jorge Jefferson MD Primary Care Provid er Nan Blair Unavailable [phone] Nan Blair Primary Care Provider [phone] Jorge Jefferson MD Unavailable + [phone] Lizzie Collins MD Unavailable [phone] Freeman Chung MD Unavailable [phone] Maribel Andrade MD Unavailable [phone] Guy Rosen MD Unavailable Miscellaneous, Not In File Primary Care Provider Unavailable Nan Blair Primary Care Provider [phone] Encounter Details Date Type Department Care Team (Latest Contact Info) Description 04/17/2017 Orders Only [facility] CLINCON[facility] ProviderJulieta MD [address] [place] [address] Social History Tobacco Use Types Packs/Day Years Used Date Smoking Tobacco: Never Assessed Comments Unknown Sex and Gender Information Value Date Recorded Sex Assigned at Not on file Legal Sex Female 1:09 AM HAND SCRAPER Gender Identity Female 10/05/2020 10:15 AM HAND SCRAPER Sexual Orientation Straight 10/05/2020 10 :15 AM HAND SCRAPER documented as of this encounter Plan of [...] on filedocumented in this encounter Care Teams Distribution Field Technician Relationship Specialty Start Date End Date Nan Blair PA [address] [place] [address] PCP - General Physician Boring Mill Operator 04/28/18 02/01/19 Jorge Jefferson MD [address] [place] [address] PCP - General Family Medicine 02/02/19 03/08/19 Nan Blair PA [address] [place] [address] PCP - General Physician Boring Mill Operator 03/09/19 05/03/22 Miscellaneous, Not In File PCP - General 05/04/22 07/02/22 Nan Blair PA [address] [place] [address] PCP - General Family Medicine 07/03/22 Nan Blair PA [address] [place] [address] Physician Boring Mill Operator Physician Boring Mill Operator 02/02/19 9 Jorge Jefferson MD [address] [place] [address] Consulting Physician Family Medicine 03/09/19 Lizzie Collins MD [address] [address] Java Mobile Developer Cardiology 05/18/19 Freeman Chung MD [address] [place] [address] Referring Physician Geriatric Psychiatry 06/09/20 Maribel Andrade MD [address] [address] Consulting Physician Anesthesiology 12/31/20 Guy Rosen MD [address] [place] [address] Psychiatry 01/11/22 documented as of this encounter
--- OUTSIDE RECORDS SUMMARY | 2025-01-28 18:23 | XMS_ITS | Encounter Summary ---
Author Organization [facility] Facility Care Team Providers Care Serging Machine Operator Name Role Phone Nan Blair Primary Care Provider [phone] Jorge Jefferson MD Primary Care Provid er Nan Blair Unavailable [phone] Nan Blair Primary Care Provider [phone] Jorge Jefferson MD Unavailable + [phone] Lizzie Collins MD Unavailable [phone] Freeman Chung MD Unavailable [phone] Maribel Andrade MD Unavailable [phone] Guy Rosen MD Unavailable Miscellaneous, Not In File Primary Care Provider Unavailable Nan Blair Primary Care Provider [phone] Encounter Details Date Type Department Care Team (Latest Contact Info) Description 08/15/2017 Orders Only [facility] CLINCON[facility] ProviderJulieta MD [address] [place] [address] Social History Tobacco Use Types Packs/Day Years Used Date Smoking Tobacco: Never Assessed Comments Unknown Sex and Gender Information Value Date Recorded Sex Assigned at Not on file Legal Sex Female 1:09 AM BURNING MACHINE OPERATOR Gender Identity Female 10/05/2020 10:15 AM BURNING MACHINE OPERATOR Sexual Orientation Straight 10/05/2020 10 :15 AM BURNING MACHINE OPERATOR documented as of this encounter Plan of Treatment Not on file documented as of this encounter Procedures Procedure Name Priority Date/Time Associated Diagnosis Comments CARDIOLOGY REPORT 08/15/2017 12: 00 AM BURNING MACHINE OPERATOR documented in this encounter Results * CARDIOLOGY REPORT (08/15/2017 12:00 AM BURNING MACHINE OPERATOR) Anatomical Region Laterality Modality Other Narrative 08/15/2017 12:00 AM BURNING MACHINE OPERATOR Ordered by an unspecified provider. us Historical Provider [facility] Final Result documented in this encounter Visit Diagnoses Not on filedocumented in this encounter Care Teams Serging Machine Operator Relationship Specialty Start Date End Date Nan Blair PA [address] [place] [address] PCP - General Physician Roll Plugger 04/28/18 02/01/19 Jorge Jefferson MD [address] [place] [address] PCP - General Family Medicine 02/02/19 03/08/19 Nan Blair PA [address] [place] [address] PCP - General Physician Roll Plugger 03/09/19 05/03/22 Miscellaneous, Not In File PCP - General 05/04/22 07/02/22 Nan Blair PA [address] [place] [address] PCP - General Family Medicine 07/03/22 Nan Blair PA [address] [place], [place] [address] Physician Roll Plugger Physician Roll Plugger 02/02/19 9 Jorge Jefferson MD [address] [place] [address] Consulting Physician Family Medicine 03/09/19 Lizzie Collins MD [address] [address] Channel Man Cardiology 05/18/19 Freeman Chung MD [address] [place] [address] Referring Physician Geriatric Psychiatry 06/09/20 Maribel Andrade MD [address] [address] Consulting Physician Anesthesiology 12/31/20 Guy Rosen MD [address] [place] [address] Psychiatry 01/11/22 documented as of this encounter
--- OUTSIDE RECORDS SUMMARY | 2025-01-28 18:23 | XMS_ITS | Encounter Summary ---
Author Organization [facility] Facility Care Team Providers Care Fisheries Director Name Role Phone Nan Blair Primary Care Provider [phone] Jorge Jefferson MD Primary Care Provid er Nan Blair Unavailable [phone] Nan Blair Primary Care Provider [phone] Jorge Jefferson MD Unavailable + [phone] Lizzie Collins MD Unavailable [phone] Freeman Chung MD Unavailable [phone] Maribel Andrade MD Unavailable [phone] Guy Rosen MD Unavailable Miscellaneous, Not In File Primary Care Provider Unavailable Nan Blair Primary Care Provider [phone] Encounter Details Date Type Department Care Team (Latest Contact Info) Description 11/01/2017 Orders Only [facility] CLINCON[facility] ProviderJulieta MD [address] [place] [address] Social History Tobacco Use Types Packs/Day Years Used Date Smoking Tobacco: Never Assessed Comments Unknown Sex and Gender Information Value Date Recorded Sex Assigned at Not on file Legal Sex Female 1:09 AM SCRIPT GIRL Gender Identity Female 10/05/2020 10:15 AM SCRIPT GIRL Sexual Orientation Straight 10/05/2020 10 :15 AM SCRIPT GIRL documented as of this encounter Plan of Treatment Not on file documented as of this encounter Procedures Procedure Name Priority Date/Time Associated Diagnosis Comments CARDIOLOGY REPORT 11/01/2017 12: 00 AM SCRIPT GIRL documented in this encounter Results * CARDIOLOGY REPORT (11/01/2017 12:00 AM SCRIPT GIRL) Anatomical Region Laterality Modality Other Narrative 11/01/2017 12:00 AM SCRIPT GIRL Ordered by an unspecified provider. us Historical Provider [facility] Final Result documented in this encounter Visit Diagnoses Not on filedocumented in this encounter Care Teams Fisheries Director Relationship Specialty Start Date End Date Nan Blair PA [address] [place] [address] PCP - General Physician Fur Cleaner 04/28/18 02/01/19 Jorge Jefferson MD [address] [place] [address] PCP - General Family Medicine 02/02/19 03/08/19 Nan Blair PA [address] [place] [address] PCP - General Physician Fur Cleaner 03/09/19 05/03/22 Miscellaneous, Not In File PCP - General 05/04/22 07/02/22 Nan Blair PA [address] [place] [address] PCP - General Family Medicine 07/03/22 Nan Blair PA [address] [place], [place] [address] Physician Fur Cleaner Physician Fur Cleaner 02/02/19 9 Jorge Jefferson MD [address] [place] [address] Consulting Physician Family Medicine 03/09/19 Lizzie Collins MD [address] [address] Machine Strap Buckler Cardiology 05/18/19 Freeman Chung MD [address] [place] [address] Referring Physician Geriatric Psychiatry 06/09/20 Maribel Andrade MD [address] [address] Consulting Physician Anesthesiology 12/31/20 Guy Rosen MD [address] [place] [address] Psychiatry 01/11/22 documented as of this encounter
--- OUTSIDE RECORDS SUMMARY | 2025-01-28 18:23 | XMS_ITS | Clinical Summary ---
Author Organization [facility] Address [address] [place] [address] Care Team Providers Care Health Inspector Name Role Phone Nan Blair Primary Care Provider [phone] Source Comments [facility],non-owned Affiliates and Associated Physician Practices is amultiple site organization consisting of ambulatory clinics and hospital sitesin [place], [place], [place] and [place]. This disclosure is being madepursuant to the Care Everywhere program and may not contain all information available regarding this patient. Last updated 18.[facility] Allergies Active Allergy Reactions Criticality Noted Date Comments Codeine Dizziness 03/19/2020 [place] Other Low 02/02/2019 Severe reaction-Kidney failure Severe reaction-Kidney failure Morphine Unknown 10/13/2018 *pt not aware of reaction; can't remember but knows she should not take this. Olanzapine Psychiatric Medium 11/09/2018 Confusion Penicillins Urticaria,Swelling,U nknow n Medium 03/16/2016 Medications * This document contains information received from the source organization and may not represent a complete record from that organization. * Be aware that medications may not be up to date on this document. Alwaysverify current medications with the patient. levothyroxine (SYNTHROID) 88 MCG tablet Take 88 mcg by mouth once daily 09/04/2017 Active vitamin D3-cholecalcife rol (CHOLECALCIFERO L) 25 MCG (1000 UNITS) tablet Take 1,000 Units by mouth once daily Active amLODIPine (NORVASC) 5 MG tablet Take 5 mg by mouth once daily 01/18/2022 Active melatonin 5 MG tablet Take 5 mg by mouth at bedtime Active cyanocobalamin (VITAMIN B-12) 1000 MCG tablet Take 1 (one) tablet by mouth once daily 100 tablet 3 03/13/2022 Active donepezil (Aricept) 10 MG tabletIndicatio ns:Alzheimer's Disease Take 1 (one) tablet by mouth once daily Reasons: Alzheimer's Disease 90 tablet 3 07/15/2024 Active memantine (Namenda) 10 MG tabletIndicatio ns:Alzheimer's Disease Take 1 (one) tablet by mouth [...] 40.0 to 44.9 in adult 08/26/2019 2 Overview (04/18/2021): Last Assessment & Plan: Educated [...] Assessment & Plan: No cpap machine Immunizations Immunization Administration Dates Next Due FLU VACCINE TRI [...] Recorded Patient Health Questionnaire-2 Score 0 07/15/2024 Comments No Sex and Gender Information Value Date Recorded Sex Assigned at Not on file Legal Sex Female 6:28 AM LOG WASHER Gender Identity Not on file Sexual Orientation [...] FLEX SIG - COLON CA SCREENING 1949 HEPATITIS C SCREENING 11/13/1967 MAMMOGRAM 02/05/2020 02/04/2018, 10/2016, 06/09/2015 LIPID TESTING 10/30/2022 10/30/2017 DTAP/TDAP/TD VACCINES (2 - Td or Tdap) 04/08/2023 04/08/2013 COVID-19 VACCINE ( - season) 2024 DEPRESSION SCREENING 10/07/2024 07/15/2024, 03/03/2024, 08/13/2023, Additional history exists MEDICARE AWV CALENDAR YEAR 2024 Respiratory Syncytial Virus (RSV) Vaccine Pt: or over 60 yrs (1 - 1-dose 75+ series) 2024 INFLUENZA VACCINE (Season Ended) 2025 07/07/2022, 08/01/2021, 07/14/2020, Additional history exists ZOSTER VACCINE Completed 10/16/2018, 06/08, 10/07/2012 PNEUMOCOCCAL [...] complete this topic MENINGOCOCCAL (Group B) VACCINE SHARED DECISION-MAKING Aged Out No longer eligible based on patient's age to complete this topic MENINGOCOCCAL GROUPS A/C/Y/W VACCINE Aged Out No longer eligible based on patient's age to complete this topic Insurance [facility] MANAGED MEDICARE ADV Member Subscriber Plan / Payer (Ef fective 2024-Present) Name:Kriss Worley Relation to Subscriber:Self Name:Kriss Worley Payer ID:[id number] (NAIC) Type:Medicare-Managed Care Address: [place] [id number] [place] [phone] Advance Directives * Full Code (Latest Code Status on File) Date Activated Date Inactivated Comments 03/21/2020 5:53 PM 03/25/2020 5:03 PM * Full Code Date Activated Date Inactivated Comments 03/19/2020 6:05 PM 03/21/2020 5:36 PM Care Teams Health Inspector Relationship Specialty Start Date End Date Nan Blair PA PCP - General 05/08/20
--- OUTSIDE RECORDS SUMMARY | 2025-01-28 18:23 | XMS_ITS | Encounter Summary ---
Author Organization [facility] Address [address] [place] [address] Phone Care Team Providers Care Assembly Machine Feeder Name Role Phone Nan Blair Primary Care Provider [phone] Jorge Jefferson MD Primary Care Provid er Nan Blair Unavailable [phone] Nan Blair Primary Care Provider [phone] Jorge Jefferson MD Unavailable + [phone] Lizzie Collins MD Unavailable [phone] Freeman Chung MD Unavailable [phone] Maribel Andrade MD Unavailable [phone] Guy Rosen MD Unavailable Miscellaneous, Not In File Primary Care Provider Unavailable Nan Blair Primary Care Provider [phone] Encounter Details Date Type Department Care Team (Latest Contact Info) Description 11/01/2017 Orders Only [facility] Scanning, Provider Social History Tobacco Use Types Packs/Day Years Used Date Smoking Tobacco: Never Assessed Comments Unknown Sex and Gender Information Value Date Recorded Sex Assigned at Not on file Legal Sex Female 1:09 AM UKE OPERATOR Gender Identity Female 10/05/2020 10:15 AM UKE OPERATOR Sexual Orientation Straight 10/05/2020 10 :15 AM UKE OPERATOR documented as of this encounter Plan of Treatment Not on file documented as of this encounter Procedures Procedure Name Priority Date/Time Associated Diagnosis Comments SCAN - RADIOLOGY/IMAGING 11/01/2017 documented in this encounter Results * SCAN - RADIOLOGY/IMAGING (11/01/2017) Anatomical Region Laterality Modality Other Provider Scanning Final Result documented in this encounter Visit Diagnoses Not on filedocumented in this encounter Care Teams Assembly Machine Feeder Relationship Specialty Start Date End Date Nan Blair PA [address] [place] [address] PCP - General Physician Radio Mechanic Apprentice 04/28/18 02/01/19 Jorge Jefferson MD [address] [place] [address] PCP - General Family Medicine 02/02/19 03/08/19 Nan Blair PA [address] [place] [address] PCP - General Physician Radio Mechanic Apprentice 03/09/19 05/03/22 Miscellaneous, Not In File PCP - General 05/04/22 07/02/22 Nan Blair PA [address] [place] [address] PCP - General Family Medicine 07/03/22 Nan Blair PA [address] [place] [address] Physician Radio Mechanic Apprentice Physician Radio Mechanic Apprentice 02/02/19 9 Jorge Jefferson MD [address] [place] [address] Consulting Physician Family Medicine 03/09/19 Lizzie Collins MD [address] [address] Operations Intelligence Cardiology 05/18/19 Freeman Chung MD [address] [place] [address] Referring Physician Geriatric Psychiatry 06/09/20 Maribel Andrade MD [address] [address] Consulting Physician Anesthesiology 12/31/20 Guy Rosen MD [address] [place] [address] Psychiatry 01/11/22 documented as of this encounter
--- OUTSIDE RECORDS SUMMARY | 2025-01-28 18:23 | XMS_ITS | Clinical Summary ---
Author Organization [facility] Address [address] [place] [address] Care Team Providers Care Shipmaster Name Role Phone Nan Blair Primary Care Provider [phone] Allergies Active Allergy Reactions Criticality Noted Date Comments Codeine Nausea and Vomiting,Other (see comment) Low 03/16/2016 Spaced out and sick to stomach [place] Other (see comment) Low 02/02/2019 Severe reaction-Kidney [...] 40.0 to 44.9 in adult 08/26/2019 Overview (03/17/2020): Last Assessment & Plan: [...] October 2019 Bipolar 1 disorder, depressed, moderate ([facility]) 11/06/2017 Overview (03/17/2020): Last Assessment & Plan: Patient has not made appointment with a psychiatrist. Patient reports she is feeling stable on her current meds. I encouraged patient to make a Psychiatry appointment Bipolar 1 disorder, depressed, moderate ([facility]) 10/30/2017 Mild cognitive impairment with memory loss [...] Last Assessment & Plan: stable Atrial flutter ([facility]) 02/14/2016 Overview (03/17/2020): Last Assessment & Plan: [...] (General) 2014 DTaP, Tdap and Td Vaccines ( 2 - Td or Tdap) 04/08/2023 04/08/2013 COVID-19 Vaccine ( - 2023-2 5 season) 2024 RSV Immunization or 60+ Years (1 - 1-dose 75+ series) 2024 Zoster Vaccines Completed 10/16/2018, 07/03/2018, 10/07/2012 Pneumococcal Vaccine: 50+ Years Completed 02/02/2019, 05/18/2015, 07/18/2011 Meningococcal B Vaccine Aged Out No l onger eligible based on patient's age to complete this topic Meningococcal Vaccine Aged Out No rangel nando eligible based on patient's age to complete this topic RSV Immunizations Under 20 Months Aged Out No longer eligible b ased on patient's age to complete this topic Insurance MED REPL[facility] MEDICARE MED [facility] MEDICARE Advance Directives Documents on File Type Date Recorded 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
--- OUTSIDE RECORDS SUMMARY | 2025-01-28 18:23 | XMS_ITS | Encounter Summary ---
Author Organization [facility] [email or web address] [facility] Address [address] [place] [address] Phone Care Team Providers Care Hat Former Name Role Phone Nan Blair Primary Care Provider [phone] Jorge Jefferson MD Unavailable + [phone] Lizzie Collins MD Unavailable [phone] Freeman Chung MD Unavailable [phone] Maribel Andrade MD Unavailable [phone] Guy Rosen MD Unavailable Miscellaneous, Not In File Primary Care Provider Unavailable Nan Blair Primary Care Provider [phone] Encounter Details Date Type Department Care Team [...] on file Legal Sex Female 1:09 AM [facility] Gender Identity Female 10/05/2020 10:15 AM [facility] Sexual Orientation Straight 10/05/2020 10 :15 AM [facility]IV[facility] Occupation Industry Job Start Date Job End [...] on filedocumented in this encounter Care Teams Hat Former Relationship Specialty Start Date End Date Nan Blair PA [address] [place] [address] PCP - General Physician Manager Mechanical 03/09/19 05/03/22 Miscellaneous, Not In File PCP - General 05/04/22 07/02/22 Nan Blair PA [address] [place] [address] PCP - General Family Medicine 07/03/22 Jorge Jefferson MD [address] [place] [address] Consulting Physician Family Medicine 03/09/19 Lizzie Collins MD [address] [address] Biomedical Engineering Director Cardiology 05/18/19 Freeman Chung MD [address] [place] [address] Referring Physician Geriatric Psychiatry 06/09/20 Maribel Andrade MD [address] [facility] [address] [place] [address] Consulting Physician Anesthesiology 12/31/20 Guy Rosen MD [address] [place] [address] Psychiatry 01/11/22 documented as of this encounter
--- OUTSIDE RECORDS SUMMARY | 2025-01-28 18:23 | XMS_ITS | Encounter Summary ---
Author Organization [facility] [employer] [facility] Address [address] [place] [address] Phone Care Team Providers Care Distance Education Director Name Role Phone Nan Blair Primary Care Provider [phone] Jorge Jefferson MD Unavailable + [phone] Lizzie Collins MD Unavailable [phone] Freeman Chung MD Unavailable [phone] Maribel Andrade MD Unavailable [phone] Guy Rosen MD Unavailable Miscellaneous, Not In File Primary Care Provider Unavailable Nan Blair Primary Care Provider [phone] Encounter Details Date Type Department Care Team [...] on file Legal Sex Female 1:09 AM ONCOLOGIST Gender Identity Female 10/05/2020 10:15 AM ONCOLOGIST Sexual Orientation Straight 10/05/2020 10 :15 AM ONCOLOGIST Occupation Industry Job Start Date Job End [...] on filedocumented in this encounter Care Teams Distance Education Director Relationship Specialty Start Date End Date Nan Blair PA [address] [place] [address] PCP - General Physician Exterior Interior Specialist 03/09/19 05/03/22 Miscellaneous, Not In File PCP - General 05/04/22 07/02/22 Nan Blair PA [address] [place] [address] PCP - General Family Medicine 07/03/22 Jorge Jefferson MD [address] [place] [address] Consulting Physician Family Medicine 03/09/19 Lizzie Collins MD [address] [facility] [address] Ophthalmic Technician Apprentice Cardiology 05/18/19 Freeman Chung MD [address] [place] [address] Referring Physician Geriatric Psychiatry 06/09/20 Maribel Andrade MD [address] [facility] [address] [place] [address] Consulting Physician Anesthesiology 12/31/20 Guy Rosen MD [address] [place] [address] Psychiatry 01/11/22 documented as of this encounter
--- OUTSIDE RECORDS SUMMARY | 2025-01-28 18:23 | XMS_ITS | Referral Summary ---
Author Organization [facility] Address [address] [place] [address] Care Team Providers Care Sales Representative [employer] Name Role Phone Jorge Jefferson MD Unavailable + [phone] Lizzie Colilns MD Unavailable [phone] Freeman Chung MD Unavailable [phone] Maribel Andrade MD Unavailable [phone] Guy Rosen MD Unavailable Nan Blair Primary Care Provider Encounters Date Type Department Care Team Description 01/27/2025 1:45 PM CDT Office Visit [facility] [address] 6th [address] [place] [address] Betsy Ryan NP 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) (Primary Dx) 01/13/2025 Orders Only [facility] Scanning, Provider 01/12/2025 Documentation [facility] [place] [id number] [facility] [place] [address] [place] [address] Sherly Ivey, IMRA 01/08/2025 Telephone [facility] [place] [id number] [facility] [place] [address] [place] [address] Harriett Sutherland, RMA 01/04/2025 Telephone [facility] [address] [place] [address] First Floor [address] [place] [address] Jorge, Deamelia 01/04/[address] [address] Nan Blair PA 01/04/2025 2:18 PM CDT - 01/04/2025 11:59 PM CDT Hospital Encounter [facility] MRI [address] [place] [id number] 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); Seizure disorder (HCC); Confusion after a seizure Discharge Disposition: Discharge to home or self care 01/04/2025 1:12 PM CDT - 01/04/2025 11:59 PM CDT Hospital Encounter [facility] Cardiac Testing [address] [place] [id number] Seizure disorder (HCC); Confusion after a seizure Discharge Disposition: Discharge to home or self care 11/27/2024 10:00 AM PRIOR AUTHORIZATION NURSE Office Visit [address] [address] Nan Blair PA 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) (Primary Dx); Seizure disorder (HCC); Confusion after a seizure; Bipolar 1 disorder, depressed, moderate (HCC); Essential (primary) hypertension 11/19/[address] [address] Nan Blair PA Medical Question/Miscellane ous [address] [address] Nan Blair PA Medical Question/Miscellane ous 11/03/2024 Telephone [facility] Accountable Care Organization [address] [place] [address] Tina Shah MA Unsuccessful Phone Call 1 ([facility]) from Last 3 Months Allergies Active Allergy Reactions Criticality Noted Date Comments Amoxicillin Unknown 02/02/2019 Codeine Other (See comments),Dizziness,Naus ea And Vomiting,Unknown Low 03/16/2016 Spaced out and sick to stomach Spaced out and sick to stomach confusion, n/v Bucks Other (See comments),Unknown Low 02/02/2019 Severe reaction-Kidney failure Severe reaction-Kidney failure Severe reaction-Kidney failure Morphine Unknown,Vomiting Low 10/13/2018 *pt not aware of reaction; can't remember but knows she should not take this. vomiting Olanzapine Delusions Medium 11/09/2018 Confusion Penicillins Hives,Swelling,Unkno wn,U rticaria Medium 03/16/2016 Hives Medications cholecalcifero l (VITAMIN D-3) 25 mcg (1,000 unit) tablet TAKE 1 TABLET BY MOUTH ONCE DAILY 90 tablet 1 1 Active cyanocobalamin (Vitamin B-12) 1,000 mcg tablet TAKE 1 TABLET BY MOUTH EVERY OTHER DAY 7 tablet 4 2 Active memantine (NAMENDA) 10 mg tabletIndicati ons:Moderate to Severe Alzheimer's Type Dementia Take 1 [...] for wheezing Active naltrexone (DEPADE) 50 mg tabletIndicati ons:Alcohol use disorder, moderate (HCC) Take 1 tablet (50 mg total) by mouth daily 30 tablet 3 4 025 Active lamoTRIgine (LaMICtal) 25 mg tablet Take one tablet per day for 14 days. Then take one tablet twice per day for 14 days 42 tablet 5 Active donepeziL (ARICEPT) 5 mg tablet Take 1 tablet (5 mg total) by mouth daily Discontinue 10 mg donepezil. Take 5 mg donepezil daily for 2 weeks and then discontinue. 14 tablet 5 Active lamoTRIgine (LaMICtal) 25 mg tablet AFTER completing prescription of 25 mg twice daily for 14 days, take one tablet every morning and 2 tablets (50 mg) every evening for 14 days. Then begin 2 tablets every morning and 2 tablets every evening. 98 tablet 5 Active donepeziL (ARICEPT) 10 mg tablet TAKE 1 TABLET BY MOUTH ONCE DAILY 90 tablet 1 1 025 Discontin ued(Other ) Active Problems Problem Noted Date Diagnosed Date Seizure disorder 11/27/2024 Assessment & Plan (11/27/2024 1:17 PM PRIOR AUTHORIZATION NURSE): Patient had a seizure 1 year ago. Was on medication for 1 year and was stopped in September. They believe patient had a seizure about a week ago. ER recommended MRI and EEG. Medicare annual wellness visit, subsequent 05/07 Assessment [...] behavioral d isturbance 10/12/2020 Assessment & Plan (11/27/2024 10:55 AM PRIOR AUTHORIZATION NURSE): Progressing. Patient will continue Namenda and Aricept. For now will continue the naltrexone but we may consider holding medication. Assessment & Plan (01/20/2024 5:31 PM CDT): [...] office; ok to continue Doing well at [facility] Assessment & Plan (11/15/2021 10:29 AM PRIOR AUTHORIZATION NURSE): Worsening. Patient will continue current meds. Followed [...] is not addictive. Agree with move to [facility]. Continue to work with Dr. Andrade, counselor and cognitive stimulation therapist. Assessment & Plan (10/12/2020 11:27 AM PRIOR AUTHORIZATION NURSE): Followed by neurology, unchanged Class 1 obesity due to exces s calories with serious comorbidity and body mass index (BMI) of 31.0 to 31.9 in adult 08/26/2019 Assessment & Plan (05/07/2023 2:29 PM CDT): Reviewed BMI Focus on healthy diet options Work on healthy changes Assessment & Plan (11/15/2021 10:28 AM PRIOR AUTHORIZATION NURSE): Uncontrolled. Goal of BMI is less than [...] month Assessment & Plan (10/12/2020 11:26 AM PRIOR AUTHORIZATION NURSE): Educated patient on healthy diet/exercise plan. Exercise [...] sugar. Assessment & Plan (08/26/2019 1:23 PM PRIOR AUTHORIZATION NURSE): Educated patient on healthy diet/exercise plan. Exercise [...] 05/25/2020 Assessment & Plan (11/15/2021 10:28 AM PRIOR AUTHORIZATION NURSE): PMH/MHA: 11/15/2021 Last pap:2012 Last mammogram: 02/04/2018 (requested report) Last dexa:02/04/2018, ordered Last colonoscopy/cologuard:08/2015, 12/16/2018 repeat 2023 Last Hep C:04/2017 Last tdap:04/08/2013 Last Prevnar/pneumovax: 05/18/2015 (13) 07/18/2011 (23) Last Shingrix: (zoster 10/07/2012) 10/16/2018, 07/03/2018 Last eye exam: 05/25/2020 Assessment & Plan (10/12/2020 11:27 AM PRIOR AUTHORIZATION NURSE): PMH/MHA: 10/12/2020 Last pap:2013 Last mammogram: 02/04/2018 Last dexa:02/04/2018 Last colonoscopy/cologuard:08/2015, 12/16/2018 repeat 2023 Last Hep C:04/2017 Last tdap:04/08/2013 Last Prevnar/pneumovax: 05/18/2015 (13) 07/18/2011 (23) Last Shingrix: (zoster 10/07/2012) 10/16/2018, 07/03/2018 Last eye exam: 05/25/2020 Assessment & Plan (08/26/2019 1:10 PM PRIOR AUTHORIZATION NURSE): PMH/MHA: 08/26/2019 Last pap:2012 Last mammogram: 02/04/2018 Last dexa:02/04/2018 Last colonoscopy/cologuard:08/2015, 12/16/2018 repeat 2023 Last Hep C:04/2017 Last tdap:04/08/2013 Last Prevnar/pneumovax: 05/18/2015 (13) 07/18/2011 (23) Last Shingrix: (zoster 10/07/2012) 10/16/2018, 07/03/2018 Last eye exam: due Recurrent major depressive disorder, in partial remission 10/13/2018 Assessment & Plan (05/07/2023 3:58 PM CDT): Chronic. Continue follow-up psychiatry. Assessment & Plan (11/15/2021 10:29 AM PRIOR AUTHORIZATION NURSE): Stable continue meds Assessment & Plan (10/12/2020 11:28 AM PRIOR AUTHORIZATION NURSE): Stable, followed by Psychiatry Assessment & Plan (05/23/2020 3:09 PM CDT): Strongly recommend consistent care and follow-up with [facility] Psychiatry to evaluate and treat mood [...] psychiatry Assessment & Plan (10/16/2019 1:12 PM PRIOR AUTHORIZATION NURSE): Uncontrolled. Assessment & Plan (10/14/2019 1:02 PM PRIOR AUTHORIZATION NURSE): Uncontrolled. I really feel like pt is very lonely and she needs daily interaction with other people. Encouraged pt to consider a intermediate center to open her world to new hobbies, interactions with other. Need referral to psychiatrist. Need to see counselor within the next 2 wks. Memory issues may be related to depression. Assessment & Plan (08/26/2019 1:24 PM PRIOR AUTHORIZATION NURSE): Referral to psychiatrist Generalized anxiety disorder 03/12/2018 Assessment & Plan (05/07/2023 3:57 PM CDT): Chronic. Continue follow-up with psychiatrist. Assessment & Plan (11/15/2021 10:28 AM PRIOR AUTHORIZATION NURSE): Stable, continue current meds Assessment & Plan (10/12/2020 11:26 AM PRIOR AUTHORIZATION NURSE): Stable followed by Psychiatry Assessment & Plan (02/19/2020 3:30 PM CDT): Stable Assessment & Plan (11/18/2019 4:05 PM PRIOR AUTHORIZATION NURSE): Patient will hold lorazepam at this time. She is not having any anxiety Assessment & Plan (10/14/2019 1:03 PM PRIOR AUTHORIZATION NURSE): Referral psychiatrist Assessment & Plan (08/26/2019 1:22 PM PRIOR AUTHORIZATION NURSE): Stable Bipolar 1 disorder, depressed, moderate 11/06/19 18 Assessment & Plan (11/27/2024 1:17 PM PRIOR AUTHORIZATION NURSE): Chronic, stable, patient will continue her medications for Alzheimer's to include Aricept and Namenda. No additional meds needed at this time Assessment & Plan (05/07/2023 3:57 PM CDT): Chronic. Continue follow-up with psychiatrist. Assessment & Plan (11/15/2021 10:27 AM PRIOR AUTHORIZATION NURSE): Stable Assessment & Plan (10/12/2020 11:26 AM PRIOR AUTHORIZATION NURSE): Stable followed by Psychiatry Assessment & Plan (05/02/2020 2:11 PM CDT): Follow with psychiatry Assessment & Plan (02/19/2020 3:30 PM CDT): Patient has not made appointment with a psychiatrist. Patient reports she is feeling stable on her current meds. I encouraged patient to make a Psychiatry appointment Assessment & Plan (11/18/2019 4:05 PM PRIOR AUTHORIZATION NURSE): Uncontrolled. Increase Wellbutrin to 300 mg. Patient needs to see a psychiatrist. Patient given a list of psychiatrist in the area. I spoke with her lela not too long ago about patient needing to see the psychiatrist and also patient needing to consider moving into some type of intermediate center to have interactions with other people Assessment & Plan (10/16/2019 3:21 PM PRIOR AUTHORIZATION NURSE): Uncontrolled. Pt does not have a psychiatrist [...] consider looking into inpatient psychiatric care at [facility] in [place]. Patient's son will be contacting his brother and they will be deciding what to do in the next day or so. Patient will be monitor closely over the weekend by Pap[facility]. Assessment & Plan (10/14/2019 1:03 PM PRIOR AUTHORIZATION NURSE): Uncontrolled, referral to psychiatrist. Assessment & Plan (08/26/2019 1:22 PM PRIOR AUTHORIZATION NURSE): Depressed, need to see psychiatry for medication adjustment. Essential (primary) hypertension 08/15/2017 Assessment & Plan (11/27/2024 2:03 PM PRIOR AUTHORIZATION NURSE): Episodes of hypotension. We are going to hold amlodipine. We are going to have [facility] living check her blood pressure daily and report numbers in 1 week. Assessment & Plan (05/07/2023 3:57 PM CDT): Chronic and controlled without medication. Continue to monitor. Assessment & Plan (11/15/2021 10:28 AM PRIOR AUTHORIZATION NURSE): Stable, continue current meds Assessment & Plan (10/12/2020 11:26 AM PRIOR AUTHORIZATION NURSE): Stable continue meds Assessment & Plan (02/19/2020 3:30 PM CDT): Stable Assessment & Plan (11/18/2019 4:05 PM PRIOR AUTHORIZATION NURSE): Stable continue meds Assessment & Plan (08/26/2019 1:22 PM PRIOR AUTHORIZATION NURSE): Stable, continue current meds Primary osteoarthritis of right knee 08/15/2017 Assessment & Plan (05/07/2023 2:31 PM CDT): Continue Tylenol as needed for pain. Assessment & Plan (11/15/2021 10:29 AM PRIOR AUTHORIZATION NURSE): Patient takes Tylenol for pain. Assessment & Plan (10/12/2020 11:28 AM PRIOR AUTHORIZATION NURSE): Uncontrolled. Patient will hopefully get to start physical therapy soon once her insurance has been reinstated. Patient may also need to see Ortho in the near future Assessment & Plan (08/26/2019 1:24 PM PRIOR AUTHORIZATION NURSE): stable Unsteady gait 11/09/2016 Assessment & Plan (05/07/2023 3:58 PM CDT): Completed physical therapy. No recent falls. Assessment & Plan (11/15/2021 10:29 AM PRIOR AUTHORIZATION NURSE): Recommend physical therapy. Recommend using a cane Assessment & Plan (10/12/2020 11:29 AM PRIOR AUTHORIZATION NURSE): Uncontrolled. Patient is doing okay with her [...] daily. Assessment & Plan (08/26/2019 1:24 PM PRIOR AUTHORIZATION NURSE): Use cane at all times, Recommend PT. Pt will consider that. Assessment & Plan (02/02/2019 11:25 AM CDT): Order physical therapy Glucose intolerance (impaired glucose tolerance) 09/03/2016 Assessment & Plan (05/07/2023 3:57 PM CDT): Diet controlled. Labs ordered today. Assessment & Plan (11/15/2021 10:28 AM PRIOR AUTHORIZATION NURSE): Diet controlled, requested lab results Assessment & Plan (10/12/2020 11:27 AM PRIOR AUTHORIZATION NURSE): Stable, diet controlled Assessment & Plan (02/19/2020 3:30 PM CDT): Diet controlled check labs Assessment & Plan (08/26/2019 1:23 PM PRIOR AUTHORIZATION NURSE): Diet controlled, due for labs Obstructive sleep apnea 08/14/2016 Assessment & Plan (05/07/2023 2:30 PM CDT): Not on CPAP. Assessment & Plan (11/15/2021 10:29 AM PRIOR AUTHORIZATION NURSE): Stable Assessment & Plan (10/12/2020 11:28 AM PRIOR AUTHORIZATION NURSE): Stable, no CPAP machine at this time Assessment & Plan (08/26/2019 1:13 PM PRIOR AUTHORIZATION NURSE): No cpap machine Other allergic rhinitis 08/14/2016 Assessment & Plan (05/07/2023 2:30 PM CDT): Continue current management. Assessment & Plan (11/15/2021 10:29 AM PRIOR AUTHORIZATION NURSE): Stable Assessment & Plan (10/12/2020 11:28 AM PRIOR AUTHORIZATION NURSE): Stable p.r.n. meds Assessment & Plan (08/26/2019 1:23 PM PRIOR AUTHORIZATION NURSE): stable Other specified hypothyroidism 12/30/2015 Assessment & Plan (05/07/2023 2:30 PM CDT): Continue current dose of levothyroxine. Due for TSH. Assessment & Plan (11/15/2021 10:29 AM PRIOR AUTHORIZATION NURSE): Stable, continue meds, requested lab Assessment & Plan (10/12/2020 11:28 AM PRIOR AUTHORIZATION NURSE): Stable continue meds Assessment & Plan (02/19/2020 3:31 PM CDT): Check labs Assessment & Plan (08/26/2019 1:24 PM PRIOR AUTHORIZATION NURSE): Stable, check labs Mixed hyperlipidemia 12/30/2015 Assessment & Plan (05/07/2023 2:30 PM CDT): Diet controlled. Will continue to monitor lipid panel. Assessment & Plan (11/15/2021 10:29 AM PRIOR AUTHORIZATION NURSE): Diet controlled. Requested lab Assessment & Plan (10/12/2020 11:28 AM PRIOR AUTHORIZATION NURSE): Stable, patient is not on meds at this time Assessment & Plan (02/19/2020 3:31 PM CDT): Check labs Assessment & Plan (08/26/2019 1:23 PM PRIOR AUTHORIZATION NURSE): Check labs Vitamin D deficiency 12/30/2015 Assessment & Plan (05/07/2023 2:31 PM CDT): Continue vitamin-D supplement. Assessment & Plan (11/15/2021 10:30 AM PRIOR AUTHORIZATION NURSE): Stable continue vitamin Assessment & Plan (10/12/2020 11:29 AM PRIOR AUTHORIZATION NURSE): Stable continue vitamin Assessment & Plan (02/19/2020 3:31 PM CDT): Check labs Assessment & Plan (08/26/2019 1:25 PM PRIOR AUTHORIZATION NURSE): Continue vit d Resolved Problems Problem Noted Date Diagnosed Date Resolved Date Unspecified mood (affective) disorder ([facility]) 03/21/2020 11/15/2021 Assessment & Plan (10/12/2020 11:29 AM PRIOR AUTHORIZATION NURSE): Stable followed by Psychiatry Assessment & Plan [...] 2 Assessment & Plan (10/12/2020 11:28 AM PRIOR AUTHORIZATION NURSE): Stable continue meds Assessment & Plan (11/18/2019 4:05 PM PRIOR AUTHORIZATION NURSE): With patient's change in urinary symptoms I would like to hold the VESIcare and see how she does. UA in office today was negative Assessment & Plan (08/26/2019 1:24 PM PRIOR AUTHORIZATION NURSE): Stable, continue meds Mild neurocognitive disorder 12/20/2017 [...] 2019 Assessment & Plan (10/14/2019 1:03 PM PRIOR AUTHORIZATION NURSE): Referral to memory clinic at [facility]. Scores show mild decline. Assessment & Plan (08/26/2019 1:23 PM PRIOR AUTHORIZATION NURSE): Need to rtc for memory testing. 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 08/26/2019 Leucocytosis 03/26/2017 08/26/2019 MARTIN (dyspnea on exertion) 12/11/2016 History of IBS 09/03/2016 08/26/2019 History of radiofrequency ab lation procedure for cardiac arrhythmia 09/03/2016 08/26/2019 Vulvar dystrophy 09/03/2016 10/12/2020 Assessment & Plan (08/26/2019 1:25 PM PRIOR AUTHORIZATION NURSE): Stable History of rhabdomyolysis 08/14/2016 Atrial flutter ([facility]) 02/14/201606/2022 Assessment & Plan (10/12/2020 11:26 AM PRIOR AUTHORIZATION NURSE): Stable Assessment & Plan (02/19/2020 3:30 PM CDT): Stable Assessment & Plan (08/26/2019 1:22 PM PRIOR AUTHORIZATION NURSE): Stable followed by cardiology Immunizations Immunization Administration Dates Next Due Influenza Virus Vaccine Trivalent Mdv 07/03/2018 Influenza, Quad, Adjuvantate d, Intramuscular 07/09/2023 Influenza, Quadrivalent, Spl it, Preservative Free, Intramuscular 07/14/2020 Influenza, Trivalent, Adjuva nted, Intramuscular 07/02/2018 Influenza, Trivalent, High D ose, Split, Preservative Free, Intramuscular 07/22/2019,07/18/2017,06/07/2016 Influenza, Trivalent, IM (MDV) 10/03/2015,2012 Influenza, Trivalent, Preser vative Free, Intramuscular 07/01/2016,10/03/2015 Influenza, Unspecified 07/07/2024,2021,08/01/2021,07/22,06/07/2016 Pneumococcal Conjugate PCV 13 05/18/2015 Pneumococcal Polysaccharide [...] drink containing alc ohol? Monthly or less 11/27/2024 Q2: How many drinks containi ng alcohol do you have on a typical day when you are drinking? 1 or 2 11/27/2024 Q3: How often do you have si x or more drinks on one occasion? 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 Not on file Not on file Last Filed Vital Signs Vital Sign Reading Time Taken Comments Blood Pressure 108/74 01/27/2025 1:38 PM CDT Pulse 75 01/27/2025 1:38 PM CDT Temperature 36.8 C (98.3 F) 01/27/2025 1:38 PM CDT Respiratory Rate 16 11/27/2024 10:05 AM PRIOR AUTHORIZATION NURSE Oxygen Saturation 98% 01/27/2025 1:38 PM CDT Inhaled Oxygen Concentration - - Weight 88.2 kg (194 lb 8 oz) 01/27/2025 1:38 PM CDT Height 166.4 cm (5' 5.5 ) 01/27/2025 1:38 PM CDT Body Mass Index 31.87 01/27/2025 1:38 PM CDT Plan of Treatment Not on file Procedures Procedure Name Priority Date/Time Associated Diagnosis Comments SCAN - NEUROLOGY 01/13/2025 4:59 PM CDT MRI BRAIN WO CONTRAST Schedule Routine, Read Routine (OP Routine) 01/04/2025 3:46 PM CDT 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) Seizure disorder (HCC) Confusion after a seizure COLONOSCOPY Routine 12/16/2018 MAMMOGRAPHY Routine 02/04/2018 HEPATITIS C ANTIBODY Routine 04/24/2017 11:05 AM CDT from Last 3 Months or Most Recently Relevant to Health Maintenance Results * SCAN - NEUROLOGY (01/13/2025 4:59 PM CDT) Anatomical Region Laterality Modality Other us Provider Scanning Final Result * MRI Brain WO Contrast (01/04/2025 3:46 PM CDT) Anatomical Region Laterality Modality Head and Neck N/A Magnetic Resonan ce 01/05/2025 7:17 AM CDT Narrative 01/05/2025 10:21 AM CDT EXAM DESCRIPTION: MRI BRAIN WO CONTRAST REASON FOR STUDY: Mental status change, unknown cause, possible seizure and confustion Hx of Seizures and Alzheimer's. No surgery TECHNIQUE: Multiplanar imaging includes non-contrasted T1, T2, FLAIR, and diffusion with ADC map sequences. Additional sequence(s) sensitive to blood products. Images stored on PACS. COMPARISON: CT head without contrast dated 06/24/2020. MRI brain from an outside institution dated 11/01/2017. CT head from an outside institution dated 10/29/2017. FINDINGS: There is no diffusion restriction to suggest acute/recent infarction. The GRE sequence is severely limited by motion related artifact and can not adequately evaluate for blood degradation products. There is diffuse cerebral and cerebellar parenchymal volume loss. Nctqi-rlwgunm-ioba-left middle cranial fossa arachnoid cyst or underlying more pronounced parenchymal volume loss as seen on the previous MRI dated 11/01/2017. The basilar cisterns are maintained. Partially empty configuration of the sella. The subcortical and periventricular white matter T2/FLAIR hyperintense signal in the bilateral cerebral hemispheres has increased in extent when compared to the previous MRI dated 11/01/2017. Similarly there is slight increase in extent of T2/FLAIR hyperintense signal in the jann. Overall imaging features are nonspecific and could be worsening chronic microvascular ischemic type process in a patient of this age. Request clinical correlation to exclude superimposed more acute white matter pathologies such as toxic/metabolic or an infectious or inflammatory insult. Postcontrast imaging can be obtained as clinically indicated. Coronal oblique T2 and T2 weighted FLAIR sequences through the temporal lobes were obtained as part of the seizure protocol. The right temporal lobe subcortical white matter T2/FLAIR hyperintense signal as seen on the previous MRI dated 11/01/2017. Symmetric morphology through the mesial temporal lobes on both sides. Bilateral cataract eye surgeries. Partially imaged sinonasal postoperative changes. Mucosal thickening in the ethmoid air cells. Mastoid air cells are predominantly clear. IMPRESSION: 1. No acute infarction. 2. The supratentorial and infratentorial white matter T2/FLAIR hyperintense signal has increased in extent when compared to the previous MRI dated 11/01/2017. The imaging features are nonspecific and could just be worsening chronic microvascular ischemic type change in a patient of this age. Request clinical correlation to exclude superimposed acute process. 3. Parenchymal volume loss and additional findings as above. THIS IS AN ELECTRONICALLY VERIFIED FINAL REPORT 01/05/2025 10:21 AM - Electronically signed by Alex SALCEDO T: Report ID: [id number] Reading Location: [place] [id number] Procedure Note Alex Ashton, DO - 01/05/2025 EXAM DESCRIPTION: MRI BRAIN WO CONTRAST REASON FOR STUDY: Mental status change, unknown cause, possible seizureand confustion Hx of Seizures and Alzheimer's. No surgery TECHNIQUE: Multiplanar imaging includes non-contrasted T1, T2, FLAIR, and diffusion with ADC map sequences. Additional sequence(s) sensitive toblood products. Images stored on PACS. COMPARISON: CT head without contrast dated 06/24/2020. MRI brain froman outside institution dated 11/01/2017. CT head from an outside institution dated 10/29/2017. FINDINGS: There is no diffusion restriction to suggest acute/recent infarction. The GRE sequence is severely limited by motion related artifact and cannot adequately evaluate for blood degradation products. There is diffuse cerebral and cerebellar parenchymal volume loss. Ljvgr-fiymrwz-djfg-left middle cranial fossa arachnoid cyst or underlyingmore pronounced parenchymal volume loss as seen on the previous MRI dated 11/01/2017. The basilar cisterns are maintained. Partially empty configuration of the sella. The subcortical and periventricular white matter T2/FLAIR hyperintensesignal in the bilateral cerebral hemispheres has increased in extent whencompared to the previous MRI dated 11/01/2017. Similarly there is slight increase in extent of T2/FLAIR hyperintense signal in the jann. Overall imagingfeatures are nonspecific and could be worsening chronic microvascular ischemic type process in a patient of this age. Request clinical correlation to exclude superimposed more acute white matter pathologies such as toxic/metabolicor an infectious or inflammatory insult. Postcontrast imaging can be obtainedas clinically indicated. Coronal oblique T2 and T2 weighted FLAIR sequences through the temporallobes were obtained as part of the seizure protocol. The right temporal lobe subcortical white matter T2/FLAIR hyperintense signal as seen on theprevious MRI dated 11/01/2017. Symmetric morphology through the mesial temporallobes on both sides. Bilateral cataract eye surgeries. Partially imaged sinonasalpostoperative changes. Mucosal thickening in the ethmoid air cells. Mastoid air cellsare predominantly clear. IMPRESSION: 1. No acute infarction. 2. The supratentorial and infratentorial white matter T2/FLAIRhyperintense signal has increased in extent when compared to the previous MRI dated 11/01/2017. The imaging features are nonspecific and could just beworsening chronic microvascular ischemic type change in a patient of this age.Request clinical correlation to exclude superimposed acute process. 3. Parenchymal volume loss and additional findings as above. THIS IS AN ELECTRONICALLY VERIFIED FINAL REPORT 01/05/2025 10:21 AM - Electronically signed by Alex SALCEDO T: Report ID: [id number] Reading Location: [place] [address] [facility] MRI PROCEDURES Final Resul t * COLONOSCOPY (12/16/2018) Colonoscopy Abnormal Historical Provider MD HEALTH MAINTENANCE Final Result * MAMMOGRAPHY (02/04/2018) Pathologist [facility] Mammogram Normal Historical Provider MD HEALTH MAINTENANCE Final Result * Hepatitis C antibody (04/24/2017 11:05 AM CDT) Pathologist [facility] Hep C Ab NONREACT NONREACTIVE Comment: Siemens CentaurXP using NIKUNJ (chemiluminescent immunoassay) technology. NONREACTIVE: Antibodies [...] MICROBIOLOGY - GENERAL ORD ERABLES Final Result [facility] HISTORICAL RESULTS from Last 3 Months or Most Recently Relevant to Health Maintenance Insurance [address] [place] [id number] MEDICARE [facility] MEDICARE ADVANTAGE [facility] MEDICARE ADVANTAGE [place] [id number] [facility] MEDICARE ADVANTAGE Advance Directives For more information, please contact: [phone] Documents on File Type Date Recorded Patient Studio Operations Engineer In Charge Expl anation ADVANCE DIRECTIVE 12/07/2020 3:24 PM DNR ADVANCE DIRECTIVE 09/25/2013 12:00 AM POW ER OF [facility]AL [facility] PROVIDER FINANCIAL/MEDICAL Care Teams Sales Representative Metals Relationship Specialty Start Date End Date Nan Blari PA [address] [place] [address] PCP - General Family Medicine 07/03/22 Jorge Jefferson MD [address] [place] [address] Consulting Physician Family Medicine 03/09/19 Lizzie Collins MD [address] [facility] [address] [address] Marine Tower Operator Cardiology 05/18/19 Freeman Chung MD [address] [place] [address] Referring Physician Geriatric Psychiatry 06/09/20 Maribel Andrade MD [address] [address] Consulting Physician Anesthesiology 12/31/20 Guy Rosen MD [address] [place] [address] Psychiatry 01/11/22
--- OUTSIDE RECORDS SUMMARY | 2025-01-28 18:23 | XMS_ITS | Encounter Summary ---
Author Organization [facility] Address [address] [place] [address] Phone Care Team Providers Care Inspector Floor Sub Assembly Name Role Phone Jorge Jefferson MD Unavailable + [phone] Lizzie Collins MD Unavailable [phone] Freeman Chung MD Unavailable [phone] Maribel Andrade MD Unavailable [phone] Guy Rosen MD Unavailable Nan Blair Primary Care Provider [phone] Encounter Details Date Type Department Care Team (Late st Contact Info) Description 01/27/2025 1:45 PM CDT Office Visit [facility] [address] [place] [address] 6th [address] [place] [address] Betsy Ryan NP [address] [place] [address] [phone] 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) (Primary Dx) Social History Tobacco Use Types Packs/Day Years [...] on file Legal Sex Female 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 Gender Identity Female 10/05/2020 10:15 AM 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 Sexual Orientation Straight 10/05/2020 10 :15 AM 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 Not on file Not on file documented as of this encounter Last Filed Vital Signs Vital Sign Reading Time Taken Comments Blood Pressure 108/74 01/27/2025 1:38 PM CDT Pulse 75 01/27/2025 1:38 PM CDT Temperature 36.8 C (98.3 F) 01/27/2025 1:38 PM CDT Respiratory Rate - - Oxygen Saturation 98% 01/27/2025 1:38 PM CDT Inhaled Oxygen Concentration - - Weight 88.2 kg (194 lb 8 oz) 01/27/2025 1:38 PM CDT Height 166.4 cm (5' 5.5 ) 01/27/2025 1:38 PM CDT Body Mass Index 31.87 01/27/2025 1:38 PM CDT documented in this encounter Patient Instructions * Patient Instructions* Betsy Ryan NP - 01/27/2025 1:45 PM CDT AFTER VISIT SUMMARY [facility] Thank you for coming to the [facility] and for allowing us to participate in your medical care. Today, you came with your son for your appointment with Betsy Ryan NP. FEEDBACK REGARDING BRAIN HEALTH We believe your memory and thinking difficulties are most likely due to Alzheimer's disease. Alzheimer's disease, or AD, is a chronic, progressive condition that affects the brain. Scientists have not yet determined exactly why or how it develops. However, they do know that AD produces specific changes in the brain. These changes include deposits or plaques of a protein called beta amyloid, loss of nerve cells in important parts of the brain, and disorganized masses of protein fibers within the brain cells, known as neurofibrillary tangles . AD causes a gradual loss of memory and higher intellectual functions. A person with AD may have trouble recognizing familiar people and places, or kn owing what day it is. The person's memory, judgment, and decision-making may also be affected. MEMORY AND THINKING SCORES Your test scores today were: MMSE (Mini Mental Status Exam): 22/30. A perfect score on this test is 30. A score of of between 27-30 is considered normal. A score of 24-26 is considered mildly impaired. A score of 20-23 is impaired. Scores below 20 show moderate impairment and 10 or below shows severe impairment. Short Blessed Test: 10 . A perfect score on the Short Blessed Test is a 0 (higher score means poorer performance). A score of 4 or below is mild impairment. Scores of 5 or more indicate impairment. The maximum (worst) score is 28. RECOMMENDATIONS FOR FURTHER TESTING Additional Testing: No additional testing is indicated at this time Referrals: I will request that an outpatient clinic visit be scheduled with the following service(s): Not applicable. No additional referrals are recommended at this time. Primary Care: I have recommended that you follow-up with your primary care practitioner to discuss control of vascular risk factors (e.g., high blood pressure, high cholesterol, high blood glucose) MEDICATIONS Current Medications: No changes were made in your medications today ADDITIONAL RECOMMENDATIONS Nutrition: We recommend that Kriss Worley eats a balanced diet, including fruits and vegetablesdaily and regular servings of fish. Alcohol Intake: You should not drink alcohol. Activity: We recommend that Kriss Worley engage in daily physical activity such as walking or stretching. Exercise improves blood flow to the brain, boosts energy level and mood, and improves sleep. It???s important Kriss Worley remains mobile to maintain her independence. Consider physicalactivities that may also be mentally or socially engaging, such as walking with a friend, taking a dance class, joining an exercise group or golfing. Incorporate activity that Kriss Worley enjoysso she will continue to engage in it. For example, bike riding, gardening or walking the dog. Sleep: Sleep can have a big effect on your memory and thinking. Make sure you get a good night's sleep every night. Basic sleep hygiene entails getting up at the same time every morning, no napping or limiting naps to less than an hour and nap no later than 3pm, have a regular exercise schedule, nocaffeine for six hours before bedtime, and no watching TV or using the computer in your bedroom or at bedtime. Driving: You have already made the decision to stop driving. We support this decision. You should not drive. Legal: I have recommended that you implement a durable power of finance attorney or guardianship. You may wish to consult an finance attorney regarding these matters. Level of Care: You should consider living where assistance with meals, medication, and transportation is available, and where there are opportunities for social interactions and activities, such as in an assisted living type setting. RESEARCH STUDIES In our efforts to find better ways to diagnose and treat people with memory disorders, we conduct research studies. You can help by participating in research studies. There are many different types of research studies. You and your family and/or caregivers can decide if you want to participate in research and what type of research study would be best for you. As a patient at the [facility], you or your caregivers may be asked to sign a consentform so that some information about you may be included in the [facility] Data Repository. This is a list of people who have been seen in our clinic and can be used to help researchers at [facility] find people who might be interested in participating in research studies. If you signed this form, you might be contacted by some of these researchers to see if you might be interested in participating in a research project. You and family can decide if you want to hear moreabout these projects and if you would like to participate. Signing the [facility] Data Repository consent form does not mean that you are agreeing to be in a research project; it only means the investigators can contact you to see if you might be interested in research projects. RESOURCES FOR ADDITIONAL SUPPORT Alzheimer's Association of [place] Chapter: ; (toll free); http://www.alz.org, The Alzheimer's Association 29/04 Helpline provides reliable information and support to all those who need assistance. Memory [facility]: [place] is to extend and improve quality time at home for people living with dementia and their care partners, or [facility]org. They provide family prompt care rn support, education and skills. [facility] will make it easier for you to enhance your skills and adapt your home setting to meet the ever-changing demands of caregiving. Jessie Ellison R.N., Customer Service Leader, [address] [place] [id number], ; Toll Free: ext. 0419 (toll free), , Email: [email or web address] The best way to reach our team is via My Chart. This is a secure way for us to communicate about your health care. Please call The My Chart Support Desk: [phone] for help with My Chart, or [phone] to obtain a link for access. FOLLOW-UP Future Appointments Date Time Provider Department Center 01/27/2025 1:45 PM Betsy Ryan NP [facility] [address] We offer in person and telemedicine (virtual) visits. Please let us know your preference when scheduling. documented in this encounter Progress Notes * Betsy Ryan NP - 01/27/2025 1:45 PM CDT [facility] Follow-Up Visit [facility] Department of Neurology Betsy Ryan AGPCNP-BC Zdrw-[id number] start time: 1343 Subjective Chief Complaint: Memory and thinking difficulty History of Present Illness: Ms. Worley is a 74 y.o. female who comes to the [facility] today for further evaluation of her memory and thinking problems. Kriss Worley presents today with Elpidio, her son, who actsas a collateral source, or CS. Kriss Worley is in generally good health. Dementia History: Initial Visit: Date: 05/23/2020 Provider: Dr. Webster Estimated Onset: 2018 First Problems Noted: Depression, cancelling plans, driving into interstate median MMSE: 25 CDR: 1, SB: 5.5 Assessment: Ms. Worley is a 69 y.o. lady who presents with a 1 year history of slowly progressive cognitive decline. Dx: Dementia of uncertain etiology Possibilities include depression, anxiety, panic disorder, AD. Interval Visit: Date: 01/20/2024 Provider: Dr. Webster MMSE: 21 CDR: 1, SB: 6.5 Assessment: Ms. Worley is a 73 y.o. lady who presents with a 5 year history of slowly progressive cognitive decline. Dx: LOAD (CSF-confirmed) Last Visit: Date: 07/29/24 Provider: Betsy Ryan NP MMSE: 21 CDR: 1, SB: 6 Assessment: Ms. Worley is a 73 y.o. female with a history of slowly progressive cognitive changes, consistent with a clinical diagnosis of Alzheimer's dementia. Her cognitive testing has remained relatively stable, with MMSE 21/30, which is the same as last visit. She continues to live at the [facility]. She has feelings of floating , describes it not feeling present or alert. She has h ad episodes of dizziness, which wind farm support specialist were called for, she was found to be intoxicated both times. She has been more agitated per facility. Considered adding seroquel to medication regimen but did notwant to risk considering she has a history of alcohol use and difficult to assess her intake. When they go shopping, staff knows to inform family if she buys any alcohol. Adding naltrexone 50mg dailyto aid in cessation process. Plan: Start naltrexone 50mg daily to aid with alcohol cessation Continue current medication regimen and environmental support Follow-up in 6 months AD Workup Workup 08/11/2020: p-Tau/Abeta42 0.045 H ratio <=0.023 Abeta42 856 L pg/mL >1026 Total-Tau 342 H pg/mL <=238 Phospho-Tau(181P) 38.7 H pg/mL <=21.7 Interval History: I was able to speak with the CS(s), who shared the following about Kriss Worley: Mood/Behavior: Okay, some times she gets agitated Sleep: Good Appetite: Good, weight stable Safety: Driving: No Living: [facility], assisted living Alcohol/Drugs: Elpidio found a bottle of wine hidden in her closet Falls: No (sometimes there are Emergency visits: Yes, 2 months ago for a mini seizure -- Dr. Lewis Memory: Since her last assessment, Kriss Aceves memory has continued to gradually decline. She does not manage her own medications- facility does. She requires assistance managing appointments. She is not reliable in recalling details of recent events. She will repeat questions, stories and statements within minutes. Orientation: She usually does not know the day of the week, month and year. She does not have difficulty with time relationships. She does not get confused in her own home. She does not wander. Judgement and Problem Solving: Judgment and problem solving abilities are only fair. She no longer manages paying bills, calculating a tip, simple calculations, and balancing a checkbook. She has difficulty with making a menu selection and understanding more complex issues. She will defer to what others are ordering. She is appropriate in social situations. Community Affairs: She is as active as ever in the community. She is no longer driving, due to issues with memory and thinking, stopped 2-3 years ago. Home and Hobbies: At home, she is able to manage simple chores (e.g., washing the dishes, making her bed, and light cleaning). She is able to operate household appliances including the coffee machine technician. She has difficultyusing technology, including the cell phone. She has trouble with navigation - she will download many apps and get viruses. Personal Care: She is fully capable of self care. Review of Systems Review of Systems Constitutional: Negative. HENT: Negative. Eyes: Negative. Respiratory: Negative. Cardiovascular: Negative. Gastrointestinal: Negative. Genitourinary: Negative. Musculoskeletal: Negative. Skin: Negative. Neurological: Negative. Endo/Heme/Allergies: Negative. Psychiatric/Behavioral: Positive for memory loss. Patient History: Active Problems: Patient Active Problem List Diagnosis Recurrent major depressive disorder, in partial remission Health maintenance examination Obstructive sleep apnea Bipolar 1 disorder, depressed, moderate (HCC) Essential (primary) hypertension Generalized anxiety disorder Glucose intolerance (impaired glucose tolerance) Other specified hypothyroidism Mixed hyperlipidemia Other allergic rhinitis Primary osteoarthritis of right knee Unsteady gait Vitamin D deficiency Class 1 obesity due to excess calories with serious comorbidity and body mass index (BMI) of 31.0 to 31.9 in adult 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) Medicare annual wellness visit, subsequent Seizure disorder (HCC) Medications: Current Outpatient Medications: albuterol HFA (PROVENTIL HFA,VENTOLIN HFA,PROAIR HFA) 90 mcg/actuation inhaler, Inhale 2 puffs every 6 (six) hours as needed for wheezing, Disp: , Rfl: amLODIPine (NORVASC) 5 mg tablet, Take 1 tablet (5 mg total) by mouth daily, Disp: , Rfl: aspirin 81 mg enteric coated tablet, Take 1 tablet (81 mg total) by mouth daily, Disp: , Rfl: cholecalciferol (VITAMIN D-3) 25 mcg (1,000 unit) tablet, TAKE 1 TABLET BY MOUTH ONCE DAILY, Disp: 90 tablet, Rfl: 1 cyanocobalamin (Vitamin B-12) 1,000 mcg tablet, TAKE 1 TABLET BY MOUTH EVERY OTHER DAY, Disp: 7 tablet, Rfl: 4 donepeziL (ARICEPT) 5 mg tablet, Take 1 tablet (5 mg total) by mouth daily Discontinue 10 mg donepezil. Take 5 mg donepezil daily for 2 weeks and then discontinue., Disp: 14 tablet, Rfl: 0 lamoTRIgine (LaMICtal) 25 mg tablet, Take one tablet per day for 14 days. Then take one tablet twice per day for 14 days, Disp: 42 tablet, Rfl: 0 levothyroxine (SYNTHROID) 88 mcg tablet, TAKE 1 TABLET BY MOUTH ONCE DAILY, Disp: 14 tablet, Rfl: 3 melatonin 5 mg tablet, Take 0.6 tablets (3 mg total) by mouth nightly as needed, Disp: , Rfl: memantine (NAMENDA) 10 mg tablet, Take 1 tablet (10 mg total) by mouth 2 (two) times a day, Disp: ,Rfl: naltrexone (DEPADE) 50 mg tablet, Take 1 tablet (50 mg total) by mouth daily, Disp: 30 tablet, Rfl:3 Allergies: Allergies Allergen Reactions Olanzapine Delusions Confusion Penicillins Hives, Swelling, Unknown and Urticaria Hives Amoxicillin Unknown Codeine Other (See comments), Dizziness, Nausea And Vomiting and Unknown Spaced out and sick to stomach Spaced out and sick to stomach confusion, n/v [place] Other (See comments) and Unknown Severe reaction-Kidney failure Severe reaction-Kidney failure Severe reaction-Kidney failure Morphine Unknown and Vomiting *pt not aware of reaction; can't remember but knows she should not take this. vomiting Family History: Family History Problem Relation Age of Onset Dementia Mother Hypertension Mother Diabetes Mother Transient ischemic attack Mother Hearing loss Mother Memory loss Mother Alzheimer's disease Father Hypertension Father Other (triple bypass) Father Hypertension Sister Depression Sister Obesity Sister Colon cancer Maternal Grandmother Cancer Paternal Grandfather large and small intestine cancer Social History: Social History Tobacco Use Smoking status: Never Smokeless tobacco: Never Substance and Sexual Activity Drug use: Never Sexual activity: Defer Alcohol Use: Not At Risk (11/27/2024) AUDIT-C Frequency of Alcohol Consumption: Monthly or less Average Number of Drinks: 1 or 2 Frequency of Binge Drinking: Never Objective Medical records reviewed (prior [facility] visits, Neuropsychiatric Testing, labs and imaging). Imaging: MRI Brain WO Contrast 01/04/25 Narrative & Impression EXAM DESCRIPTION: MRI BRAIN WO CONTRAST REASON [...] diffuse cerebral and cerebellar parenchymal volume loss. Jdmty-[id number]-left middle cranial fossa arachnoid cyst or underlying [...] signed by Alex SALCEDO T: Report ID: [id number] Reading Location: [place] [address] Labs: Lab Results Component Value Date TSH 1.13 05/21/2023 Lab Results Component Value Date [id number] [id number] 04/25/2020 Neurobehavioral Test Results: 05/23/2020 7:00 AM 12/26/2020 4:34 AM 01/01/2022 3:57 PM 01/07/2023 7:00 AM 01/20/2024 7:00 AM 07/29/2024 7:00 AM 01/27/2025 7:00 AM [facility] Neurobehavioral Status Exam Results Repository ICF signed? Yes No No No No No Verbal Fluency Total Score 22 21 20 18 21 -- -- [place] Naming (15 item) Total Score 15 15 15 14 13 14 14 MMSE Score 25 25 25 21 21 21 22 Word List Memory Task 15 16 14 13 13 -- -- Word List Recall 2 2 2 0 1 -- -- Short Blessed Total Score 6 8 4 2 4 10 10 Logical Memory Total Score 7 1 7 8 7 4 7 Trails A - Seconds to complete 36 55 29 23 19 46 47 Trails A - Errors 0 1 -- 0 1 0 Trails B - Seconds to complete 129 114 63 96 125 -- -- Trails B - Errors 1 2 -- 4 5 Total Score (out of 90) 43 47 64 55 56 -- -- Digit Symbol Errors 2 0 1 Formal neurobehavioral testing took from 1345 to 1355. Results Interpretation: On tests of semantic memory, such as [place] Naming Test and verbal fluency (animal naming), Kamryn Estess scores were in the very mild to no impairment range. On tests of episodic memory, such as word list task, word list recall and logical memory, Kriss Medeross scores were in the very mild to mild impairment range. On tests of speeded psychomotor performance, visual scanning and sequencing (Trailmaking), Scores were in the normal to borderline impaired range. On more global tests, such as the Mini-Mental Status Exam (MMSE), Kriss Estess score was 22 (MMSE, out of 30). On memory items within the MMSE and Short Blessed Test, Kriss Worley was correct on 0/3 memory items on the MMSE and on 0/5 on the Short Blessed. She was not able to subtract serials threes, was able to calculate the number of quarters in $6.75.She was able to draw a clock. Depression Screening: Kriss Worley endorsed 0 items on the depression screening today. Clinical Dementia Ratin05/23/2020 7:00 AM 12/26/2020 4:34 AM 01/09/2022 7:00 AM 01/07/2023 7:00 AM 01/20/2024 7:00 AM 07/29/2024 7:00 AM 01/27/2025 7:00 AM [facility] CDR/DIAGNOSIS NEW Repository ICF signed? Yes No No No No No Memory 2 2 2 2 2 1 1 Orientation 1 1 1 1 1 1 1 Judgement & Problem Solving 1 1 1 1 1 1 1 Community Affairs 0.5 0.5 1 1 1 1 0.5 Home & Hobbies 1 0.5 0.5 0.5 0.5 1 0.5 Personal Care 0 0 0 0 1 1 0 Global Score 1 1 1 1 1 1 0.5 Sum of Boxes 5.5 5 5.5 5.5 6.5 6 4 Year of Onset 2018 2018 2018 2018 2018 2018 2018 Alert for Potential Transmissible Disorders No No No No No Uncertain Dementia Yes AD Dementia Alzheimer Disease Dementia Alzheimer Disease Dementia Alzheimer Disease Dementia Alzheimer Disease Dementia Alzheimer Disease Dementia Alzheimer Disease Dementia Mood disorder (any type) Active Active Physical Exam Vitals BP 108/74 (BP Location: Left arm, Patient Position: Sitting) Pulse 75 Temp 36.8 ??C (98.3 ??F) (Temporal) Ht 166.4 cm (5' 5.5 ) Wt 88.2 kg (194 lb 8 oz) SpO2 98% BMI 31.87 kg/m?? Physical Examination General Appearance No acute distress. Eyes PERRLA, conjunctiva/corneas clear, EOM's intact. Neck Supple, symmetrical, trachea midline, no thyroid adenopathy. Neurological Exam Mental Status Awake, alert and oriented to person, place and time. Speech is normal. Language is fluent with no aphasia. Attention and concentration are normal. Cranial Nerves CN II: Visual acuity is normal. Visual tidwell full to confrontation. CN III, IV, : Extraocular movements intact bilaterally. Normal lids and orbits bilaterally. Pupils equal round and reactive to light bilaterally. CN V: Facial sensation is normal. CN VII: Full and symmetric facial movement. CN VIII: Gross hearing is intact bilaterally. CN IX, X: Palate elevates symmetrically. CN XI: Shoulder shrug strength is normal. CN XII: Tongue midline without atrophy or fasciculations. Motor Normal muscle bulk throughout. Normal muscle tone. No resting or action tremor. No bradykinesia. Reflexes Deep tendon reflexes are 2+ and symmetric in all four extremities. Coordination Hctabi-uc-uwse normal. Rapid alternating movement normal. Gait Casual gait with normal stance, stride, step height and arm swing. Assessment/Plan Assessment: Ms. Worley is a 74 y.o. female with a history of slowly progressive cognitive changes, consistent with a clinical diagnosis of Alzheimer's dementia, confirmed by CSF. Her cognitive testing has been relatively stable. Her family is considering a move from her current assisted living to another one in [place] closer to her sister. Based on her relatively stable state, I think she would tolerate this move okay, though there will be an initial transition period. She had a mini seizure a few weeks ago - Dr. Lewis restarted lamictal. We discussed audibooks, using Marlene for reminders to journal daily, and puzzles to stay stimulated even while not engaging in group activities. We will [place] follow-up for 6 months from now. Plan: Continue current medication regimen and environmental support Follow-up in 6 months Diagnoses and all orders for this visit: 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) (Primary) Flfh-[id number]-[id number] end time: 1414 I spent 5 minutes interpreting the results of standardized neuropsychological testing, integrating these results into clinical decision making and treatment plan, providing interactive feedback to the patient and family member(s)/caregiver(s) and report, and documenting this in the patient's chart. In addition to the interpretation time listed above (and exclusive of that time), I spent 36 minutes on the day of the encounter on activities related to the visit including preparing to see the patient by reviewing labs, tests and medical records, time spent [id number] with the patient and family during the visit, performing counselling and education, placing orders and documenting the visit in the patient's EHR. SU[facility] Nurse Practitioner [facility] Patient Instructions Patient Instructions AFTER VISIT SUMMARY [facility] Thank you for coming to the [facility] and for allowing us to participate in your medical care. Today, you came with your son for your appointment with Betsy Ryan NP. FEEDBACK REGARDING BRAIN HEALTH We believe your memory and thinking difficulties are most likely due to Alzheimer's disease. Alzheimer's disease, or AD, is a chronic, progressive condition that affects the brain. Scientists have not yet determined exactly why or how it develops. However, they do know that AD produces specific changes in the brain. These changes include deposits or plaques of a protein called beta amyloid, loss of nerve cells in important parts of the brain, and disorganized masses of protein fibers within the brain cells, known as neurofibrillary tangles . AD causes a gradual loss of memory and higher intellectual functions. A person with AD may have trouble recognizing familiar people and places, or kn owing what day it is. The person's memory, judgment, and decision-making may also be affected. MEMORY AND THINKING SCORES Your test scores today were: MMSE (Mini Mental Status Exam): 22/30. A perfect score on this test is 30. A score of of between 27-30 is considered normal. A score of 24-26 is considered mildly impaired. A score of 20-23 is impaired. Scores below 20 show moderate impairment and 10 or below shows severe impairment. Short Blessed Test: 10 . A perfect score on the Short Blessed Test is a 0 (higher score means poorer performance). A score of 4 or below is mild impairment. Scores of 5 or more indicate impairment. The maximum (worst) score is 28. RECOMMENDATIONS FOR FURTHER TESTING Additional Testing: No additional testing is indicated at this time Referrals: I will request that an outpatient clinic visit be scheduled with the following service(s): Not applicable. No additional referrals are recommended at this time. Primary Care: I have recommended that you follow-up with your primary care practitioner to discuss control of vascular risk factors (e.g., high blood pressure, high cholesterol, high blood glucose) MEDICATIONS Current Medications: No changes were made in your medications today ADDITIONAL RECOMMENDATIONS Nutrition: We recommend that Kriss Worley eats a balanced diet, including fruits and vegetablesdaily and regular servings of fish. Alcohol Intake: You should not drink alcohol. Activity: We recommend that Kriss Worley engage in daily physical activity such as walking or stretching. Exercise improves blood flow to the brain, boosts energy level and mood, and improves sleep. It???s important Kriss Worley remains mobile to maintain her independence. Consider physicalactivities that may also be mentally or socially engaging, such as walking with a friend, taking a dance class, joining an exercise group or golfing. Incorporate activity that Kriss Worley enjoysso she will continue to engage in it. For example, bike riding, gardening or walking the dog. Sleep: Sleep can have a big effect on your memory and thinking. Make sure you get a good night's sleep every night. Basic sleep hygiene entails getting up at the same time every morning, no napping or limiting naps to less than an hour and nap no later than 3pm, have a regular exercise schedule, nocaffeine for six hours before bedtime, and no watching TV or using the computer in your bedroom or at bedtime. Driving: You have already made the decision to stop driving. We support this decision. You should not drive. Legal: I have recommended that you implement a durable power of finance attorney or guardianship. You may wish to consult an finance attorney regarding these matters. Level of Care: You should consider living where assistance with meals, medication, and transportation is available, and where there are opportunities for social interactions and activities, such as in an assisted living type setting. RESEARCH STUDIES In our efforts to find better ways to diagnose and treat people with memory disorders, we conduct research studies. You can help by participating in research studies. There are many different types of research studies. You and your family and/or caregivers can decide if you want to participate in research and what type of research study would be best for you. As a patient at the [facility], you or your caregivers may be asked to sign a consentform so that some information about you may be included in the [facility] Data Repository. This is a list of people who have been seen in our clinic and can be used to help researchers at [facility] find people who might be interested in participating in research studies. If you signed this form, you might be contacted by some of these researchers to see if you might be interested in participating in a research project. You and family can decide if you want to hear moreabout these projects and if you would like to participate. Signing the [facility] Data Repository consent form does not mean that you are agreeing to be in a research project; it only means the investigators can contact you to see if you might be interested in research projects. RESOURCES FOR ADDITIONAL SUPPORT Alzheimer's Association [facility] Chapter: ; (toll free); http://www.alz.org, The Alzheimer's Association 29/04 Helpline provides reliable information and support to all those who need assistance. [facility]: [place] is to extend and improve quality time at home for people living with dementia and their care partners, or [facility]org. They provide family prompt care rn support, education and skills. [facility] will make it easier for you to enhance your skills and adapt your home setting to meet the ever-changing demands of caregiving. Jessie Ellison R.N., Customer Service Leader, [address] [place] [address], ; Toll Free: ext. 5477 (toll free), , Email: The best way to reach our team is via My Chart. This is a secure way for us to communicate about your health care. Please call The My Chart Support Desk: [phone] for help with My Chart, or [phone] to obtain a link for access. FOLLOW-UP Future Appointments Date Time Provider Department Center 01/27/2025 1:45 PM Betsy Ryan NP [facility] [address] We offer in person and telemedicine (virtual) visits. Please let us know your preference when scheduling. documented in this encounter Plan of Treatment Not on file documented as of this encounter Visit Diagnoses Diagnosis 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)- Primary documented in this encounter Care Teams Inspector Floor Sub Assembly Relationship Specialty Start Date End Date Nan Blair PA [address] [place] [address] PCP - General Family Medicine 07/03/22 Jorge Jefferson MD [address] [place] [address] Consulting Physician Family Medicine 03/09/19 Lizzie Collins MD [address] [address] Horse Race Timer Cardiology 05/18/19 Freeman Chung MD [address] [place] [address] Referring Physician Geriatric Psychiatry 06/09/20 Maribel Andrade MD [address] [address] Consulting Physician Anesthesiology 12/31/20 Guy Rosen MD [address] [place] [address] Psychiatry 01/11/22 documented as of this encounter
--- OUTSIDE RECORDS SUMMARY | 2025-01-28 18:23 | XMS_ITS | Encounter Summary ---
Author Organization [facility] [employer] [facility] Address [address] [place] [address] Phone Care Team Providers Care Traffic Analysis Technician Name Role Phone Jorge Jefferson MD Unavailable [phone] Lizzie Collins MD Unavailable [phone] Freeman Chung MD Unavailable [phone] Maribel Andrade MD Unavailable [phone] Guy Rosen MD Unavailable Nan Blair Primary Care Provider [phone] Encounter Details Date Type Department Care Team (Late st Contact Info) Description 01/04/2025 Telephone [facility] [address] [place] [address] Vivi Patel Social History Tobacco Use Types Packs/Day Years [...] on file Legal Sex Female 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 * Telephone Encounter - Gopal Short LPN - 01/08/2025 2:14 PM CDT ROSEMARY [place] asked me to fax her most recent office visit notes over. I faxed them but they should also be available to review in the pt's chart. I don't know the answers to the questions you asked but the office visit not should provide some clarification. Also, the ED note is available under the mediatab from 12/01/24, faxed [facility] ED note as well to [phone]. * Telephone Encounter - Vivi Patel - 01/04/2025 4:45 PM CDT Patti from [facility] contacted the [facility] to inform us that Kriss had a EEG done and it cameback positive for partial seizures. Their doctor would like to discuss treatment plans due to this results. documented in this encounter Plan of Treatment Not on file documented as of this encounter Visit Diagnoses Not on filedocumented in this encounter Care Teams Traffic Analysis Technician Relationship Specialty Start Date End Date Nan Blair PA [address] [place] [address] PCP - General Family Medicine 07/03/22 Jorge Jefferson MD [address] [place] [address] Consulting Physician Family Medicine 03/09/19 Lizzie Collins MD [address] [facility] [address] [address] [address] Management Technician Cardiology 05/18/19 Freeman Chung MD [address] [place] [address] Referring Physician Geriatric Psychiatry 06/09/20 Maribel Andrade MD [address] [address] Consulting Physician Anesthesiology 12/31/20 Guy Rosen MD [address] [place] [address] Psychiatry 01/11/22 documented as of this encounter
--- OUTSIDE RECORDS SUMMARY | 2025-01-28 18:23 | XMS_ITS | Clinical Summary ---
Author Organization [facility] Address [address] [place] [address] Care Team Providers Care Insole Rounder Name Role Phone Jorge Jefferson MD Unavailable [phone] Lizzie Collins MD Unavailable [phone] Freeman Chung MD Unavailable [phone] Maribel Andrade MD Unavailable [phone] Guy Rosen MD Unavailable Nan Blair Primary Care Provider [phone] Allergies Active Allergy Reactions Criticality Noted Date Comments Amoxicillin Unknown 02/02/2019 Codeine Other (See comments),Dizziness,Naus ea And Vomiting,Unknown Low 03/16/2016 Spaced out and sick to stomach Spaced out and sick to stomach confusion, n/v Cherry Other (See comments),Unknown Low 02/02/2019 Severe reaction-Kidney [...] 11/27/2024 Assessment & Plan (11/27/2024 1:17 PM TIME BROKER): Patient had a seizure 1 year ago. [...] 10/12/2020 Assessment & Plan (11/27/2024 10:55 AM TIME BROKER): Progressing. Patient will continue Namenda and Aricept. [...] ASL Assessment & Plan (11/15/2021 10:29 AM TIME BROKER): Worsening. Patient will continue current meds. Followed [...] is not addictive. Agree with move to [facility]. Continue to work with Dr. Andrade, counselor and cognitive stimulation therapist. Assessment & Plan (10/12/2020 11:27 AM TIME BROKER): Followed by neurology, unchanged Class 1 obesity due to exces s calories with serious comorbidity and body mass index (BMI) of 31.0 to 31.9 in adult 08/26/2019 Assessment & Plan (05/07/2023 2:29 PM CDT): Reviewed BMI Focus on healthy diet options Work on healthy changes Assessment & Plan (11/15/2021 10:28 AM TIME BROKER): Uncontrolled. Goal of BMI is less than [...] month Assessment & Plan (10/12/2020 11:26 AM TIME BROKER): Educated patient on healthy diet/exercise plan. Exercise [...] sugar. Assessment & Plan (08/26/2019 1:23 PM TIME BROKER): Educated patient on healthy diet/exercise plan. Exercise [...] 05/25/2020 Assessment & Plan (11/15/2021 10:28 AM TIME BROKER): PMH/MHA: 11/15/2021 Last pap:2012 Last mammogram: 02/04/2018 (requested report) Last dexa:02/04/2018, ordered Last colonoscopy/cologuard:08/2015, 12/16/2018 repeat 2023 Last Hep C:04/2017 Last tdap:04/08/2013 Last Prevnar/pneumovax: 05/18/2015 (13) 07/18/2011 (23) Last Shingrix: (zoster 10/07/2012) 10/16/2018, 07/03/2018 Last eye exam: 05/25/2020 Assessment & Plan (10/12/2020 11:27 AM TIME BROKER): PMH/MHA: 10/12/2020 Last pap:2012 Last mammogram: 02/04/2018 Last dexa:02/04/2018 Last colonoscopy/cologuard:08/2015, 12/16/2018 repeat 2023 Last Hep C:04/2017 Last tdap:04/08/2013 Last Prevnar/pneumovax: 05/18/2015 (13) 07/18/2011 (23) Last Shingrix: (zoster 10/07/2012) 10/16/2018, 07/03/2018 Last eye exam: 05/25/2020 Assessment & Plan (08/26/2019 1:10 PM TIME BROKER): PMH/MHA: 08/26/2019 Last pap:2012 Last mammogram: 02/04/2018 Last dexa:02/04/2018 Last colonoscopy/cologuard:08/2015, 12/16/2018 repeat 2023 Last Hep C:04/2017 Last tdap:04/08/2013 Last Prevnar/pneumovax: 05/18/2015 (13) 07/18/2011 (23) Last Shingrix: (zoster 10/07/2012) 10/16/2018, 07/03/2018 Last eye exam: due Recurrent major depressive disorder, in partial remission 10/13/2018 Assessment & Plan (05/07/2023 3:58 PM CDT): Chronic. Continue follow-up psychiatry. Assessment & Plan (11/15/2021 10:29 AM TIME BROKER): Stable continue meds Assessment & Plan (10/12/2020 11:28 AM TIME BROKER): Stable, followed by Psychiatry Assessment & Plan (05/23/2020 3:09 PM CDT): Strongly recommend consistent care and follow-up with [facility] Psychiatry to evaluate and treat mood [...] psychiatry Assessment & Plan (10/16/2019 1:12 PM TIME BROKER): Uncontrolled. Assessment & Plan (10/14/2019 1:02 PM TIME BROKER): Uncontrolled. I really feel like pt is very lonely and she needs daily interaction with other people. Encouraged pt to consider a fpc center to open her world to new hobbies, interactions with other. Need referral to psychiatrist. Need to see counselor within the next 2 wks. Memory issues may be related to depression. Assessment & Plan (08/26/2019 1:24 PM TIME BROKER): Referral to psychiatrist Generalized anxiety disorder 03/12/2018 Assessment & Plan (05/07/2023 3:57 PM CDT): Chronic. Continue follow-up with psychiatrist. Assessment & Plan (11/15/2021 10:28 AM TIME BROKER): Stable, continue current meds Assessment & Plan (10/12/2020 11:26 AM TIME BROKER): Stable followed by Psychiatry Assessment & Plan (02/19/2020 3:30 PM CDT): Stable Assessment & Plan (11/18/2019 4:05 PM TIME BROKER): Patient will hold lorazepam at this time. She is not having any anxiety Assessment & Plan (10/14/2019 1:03 PM TIME BROKER): Referral psychiatrist Assessment & Plan (08/26/2019 1:22 PM TIME BROKER): Stable Bipolar 1 disorder, depressed, moderate 11/06/19 18 Assessment & Plan (11/27/2024 1:17 PM TIME BROKER): Chronic, stable, patient will continue her medications for Alzheimer's to include Aricept and Namenda. No additional meds needed at this time Assessment & Plan (05/07/2023 3:57 PM CDT): Chronic. Continue follow-up with psychiatrist. Assessment & Plan (11/15/2021 10:27 AM TIME BROKER): Stable Assessment & Plan (10/12/2020 11:26 AM TIME BROKER): Stable followed by Psychiatry Assessment & Plan (05/02/2020 2:11 PM CDT): Follow with psychiatry Assessment & Plan (02/19/2020 3:30 PM CDT): Patient has not made appointment with a psychiatrist. Patient reports she is feeling stable on her current meds. I encouraged patient to make a Psychiatry appointment Assessment & Plan (11/18/2019 4:05 PM TIME BROKER): Uncontrolled. Increase Wellbutrin to 300 mg. Patient needs to see a psychiatrist. Patient given a list of psychiatrist in the area. I spoke with her jaspreeton not too long ago about patient needing to see the psychiatrist and also patient needing to consider moving into some type of fpc center to have interactions with other people Assessment & Plan (10/16/2019 3:21 PM TIME BROKER): Uncontrolled. Pt does not have a psychiatrist [...] consider looking into inpatient psychiatric care at [facility] in [place]. Patient's son will be contacting his brother and they will be deciding what to do in the next day or so. Patient will be monitor closely over the weekend by Papo. Assessment & Plan (10/14/2019 1:03 PM TIME BROKER): Uncontrolled, referral to psychiatrist. Assessment & Plan (08/26/2019 1:22 PM TIME BROKER): Depressed, need to see psychiatry for medication adjustment. Essential (primary) hypertension 08/15/2017 Assessment & Plan (11/27/2024 2:03 PM TIME BROKER): Episodes of hypotension. We are going to hold amlodipine. We are going to have [facility] check her blood pressure daily and report numbers in 1 week. Assessment & Plan (05/07/2023 3:57 PM CDT): Chronic and controlled without medication. Continue to monitor. Assessment & Plan (11/15/2021 10:28 AM TIME BROKER): Stable, continue current meds Assessment & Plan (10/12/2020 11:26 AM TIME BROKER): Stable continue meds Assessment & Plan (02/19/2020 3:30 PM CDT): Stable Assessment & Plan (11/18/2019 4:05 PM TIME BROKER): Stable continue meds Assessment & Plan (08/26/2019 1:22 PM TIME BROKER): Stable, continue current meds Primary osteoarthritis of right knee 08/15/2017 Assessment & Plan (05/07/2023 2:31 PM CDT): Continue Tylenol as needed for pain. Assessment & Plan (11/15/2021 10:29 AM TIME BROKER): Patient takes Tylenol for pain. Assessment & Plan (10/12/2020 11:28 AM TIME BROKER): Uncontrolled. Patient will hopefully get to start physical therapy soon once her insurance has been reinstated. Patient may also need to see Ortho in the near future Assessment & Plan (08/26/2019 1:24 PM TIME BROKER): stable Unsteady gait 11/09/2016 Assessment & Plan (05/07/2023 3:58 PM CDT): Completed physical therapy. No recent falls. Assessment & Plan (11/15/2021 10:29 AM TIME BROKER): Recommend physical therapy. Recommend using a cane Assessment & Plan (10/12/2020 11:29 AM TIME BROKER): Uncontrolled. Patient is doing okay with her [...] daily. Assessment & Plan (08/26/2019 1:24 PM TIME BROKER): Use cane at all times, Recommend PT. Pt will consider that. Assessment & Plan (02/02/2019 11:25 AM CDT): Order physical therapy Glucose intolerance (impaired glucose tolerance) 09/03/2016 Assessment & Plan (05/07/2023 3:57 PM CDT): Diet controlled. Labs ordered today. Assessment & Plan (11/15/2021 10:28 AM TIME BROKER): Diet controlled, requested lab results Assessment & Plan (10/12/2020 11:27 AM TIME BROKER): Stable, diet controlled Assessment & Plan (02/19/2020 3:30 PM CDT): Diet controlled check labs Assessment & Plan (08/26/2019 1:23 PM TIME BROKER): Diet controlled, due for labs Obstructive sleep apnea 08/14/2016 Assessment & Plan (05/07/2023 2:30 PM CDT): Not on CPAP. Assessment & Plan (11/15/2021 10:29 AM TIME BROKER): Stable Assessment & Plan (10/12/2020 11:28 AM TIME BROKER): Stable, no CPAP machine at this time Assessment & Plan (08/26/2019 1:13 PM TIME BROKER): No cpap machine Other allergic rhinitis 08/14/2016 Assessment & Plan (05/07/2023 2:30 PM CDT): Continue current management. Assessment & Plan (11/15/2021 10:29 AM TIME BROKER): Stable Assessment & Plan (10/12/2020 11:28 AM TIME BROKER): Stable p.r.n. meds Assessment & Plan (08/26/2019 1:23 PM TIME BROKER): stable Other specified hypothyroidism 12/30/2015 Assessment & Plan (05/07/2023 2:30 PM CDT): Continue current dose of levothyroxine. Due for TSH. Assessment & Plan (11/15/2021 10:29 AM TIME BROKER): Stable, continue meds, requested lab Assessment & Plan (10/12/2020 11:28 AM TIME BROKER): Stable continue meds Assessment & Plan (02/19/2020 3:31 PM CDT): Check labs Assessment & Plan (08/26/2019 1:24 PM TIME BROKER): Stable, check labs Mixed hyperlipidemia 12/30/2015 Assessment & Plan (05/07/2023 2:30 PM CDT): Diet controlled. Will continue to monitor lipid panel. Assessment & Plan (11/15/2021 10:29 AM TIME BROKER): Diet controlled. Requested lab Assessment & Plan (10/12/2020 11:28 AM TIME BROKER): Stable, patient is not on meds at this time Assessment & Plan (02/19/2020 3:31 PM CDT): Check labs Assessment & Plan (08/26/2019 1:23 PM TIME BROKER): Check labs Vitamin D deficiency 12/30/2015 Assessment & Plan (05/07/2023 2:31 PM CDT): Continue vitamin-D supplement. Assessment & Plan (11/15/2021 10:30 AM TIME BROKER): Stable continue vitamin Assessment & Plan (10/12/2020 11:29 AM TIME BROKER): Stable continue vitamin Assessment & Plan (02/19/2020 3:31 PM CDT): Check labs Assessment & Plan (08/26/2019 1:25 PM TIME BROKER): Continue vit d Resolved Problems Problem Noted Date Diagnosed Date Resolved Date Unspecified mood (affective) disorder ([facility]) 03/21/2020 11/15/2021 Assessment & Plan (10/12/2020 11:29 AM TIME BROKER): Stable followed by Psychiatry Assessment & Plan [...] 2 Assessment & Plan (10/12/2020 11:28 AM TIME BROKER): Stable continue meds Assessment & Plan (11/18/2019 4:05 PM TIME BROKER): With patient's change in urinary symptoms I would like to hold the VESIcare and see how she does. UA in office today was negative Assessment & Plan (08/26/2019 1:24 PM TIME BROKER): Stable, continue meds Mild neurocognitive disorder 12/20/2017 [...] 2019 Assessment & Plan (10/14/2019 1:03 PM TIME BROKER): Referral to memory clinic at [facility]. Scores show mild decline. Assessment & Plan (08/26/2019 1:23 PM TIME BROKER): Need to rtc for memory testing. 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 08/26/2019 Leucocytosis 03/26/2017 08/26/2019 MARTIN (dyspnea on exertion) 12/11/2016 History of IBS 09/03/2016 08/26/2019 History of radiofrequency ab lation procedure for cardiac arrhythmia 09/03/2016 08/26/2019 Vulvar dystrophy 09/03/2016 10/12/2020 Assessment & Plan (08/26/2019 1:25 PM TIME BROKER): Stable History of rhabdomyolysis 08/14/2016 Atrial flutter (CMS/HCC) 02/14/201606/2022 Assessment & Plan (10/12/2020 11:26 AM TIME BROKER): Stable Assessment & Plan (02/19/2020 3:30 PM CDT): Stable Assessment & Plan (08/26/2019 1:22 PM TIME BROKER): Stable followed by cardiology Encounters Date Type Department Care Team Description 01/27/2025 1:45 PM CDT Office Visit [facility] [address] [place] [address] 6th [address] [place] [id number] Betsy Ryan NP 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) (Primary Dx) 01/13/2025 Orders Only [facility], Provider 01/12/2025 Documentation [facility] [facility] [address] [place] [address] Sherly Ivey, COMPOSITE BOAT BUILDER 01/08/2025 Telephone [facility] [facility] [address] [place] [address] Harriett Sutherland, VINNY 01/04/2025 2:18 PM CDT - 01/04/2025 11:59 PM CDT Hospital Encounter [facility] MRI [address] [place] [address] 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); Seizure disorder (HCC); Confusion after a seizure Discharge Disposition: Discharge to home or self care 01/04/2025 1:12 PM CDT - 01/04/2025 11:59 PM CDT Hospital Encounter [facility] Cardiac Testing [address] [place] [address] Seizure disorder (HCC); Confusion after a seizure Discharge Disposition: Discharge to home or self care 01/04/2025 Telephone [facility] [address] [place] [address] [address] [place] [address] Vivi Patel 01/04/[address] [address] Nan Blair PA 11/27/2024 10:00 AM TIME BROKER Office Visit [address] [address] Nan Blair PA 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) (Primary Dx); Seizure disorder (HCC); Confusion after a seizure; Bipolar 1 disorder, depressed, moderate (HCC); Essential (primary) hypertension 11/19/[address] [address] Nan Blair PA Medical Question/Miscellane ous [address] [address] Nan Blair PA Medical Question/Miscellane ous 11/03/2024 Telephone [facility] Accountable Care Organization [address] [place] [address] Tina Shah MA Unsuccessful Phone Call 1 ([facility]) from Last 3 Months Immunizations Immunization Administration Dates Next Due Influenza [...] 03/06/2017 COLONOSCOPY 08/07/2015 - 09/05/2015 repeat due 2017 Medical History Medical History Date Comments Recurrent major depressive d isorder, in partial remission 10/13/2018 Obstructive sleep apnea 08/14/2016 Atrial flutter (HCC) 02/14/2016 Bipolar 1 disorder, depresse d, moderate (HCC) 11/06/2017 Decreased appetite 04/14/2018 MARTIN (dyspnea on exertion) 12/11/2016 Essential (primary) hypertension 08/15/2017 Generalized anxiety disorder 03/12/2018 Glucose intolerance (impaire d glucose tolerance) 09/03/2016 History of IBS 09/03/2016 History of radiofrequency ab lation procedure for cardiac arrhythmia 09/03/2016 History of rhabdomyolysis 08/14/2016 Other specified hypothyroidism 12/30/2015 Leucocytosis 03/26/2017 Leukocytoclastic vasculitis (HCC) 04/24/2017 Mild neurocognitive disorder 12/20/2017 Mixed hyperlipidemia 12/30/2015 Other allergic rhinitis 08/14/2016 Overactive bladder 03/12/2018 Paroxysmal SVT (supraventric ular tachycardia) 08/15/2017 Primary osteoarthritis of right knee 08/15/2017 Vulvar dystrophy 09/03/2016 Unsteady gait 11/09/2016 Vitamin D deficiency 12/30/2015 Hypothyroidism Head injury 1958 3rd grade, uncon scious, doc office and [place] home Seizures (HCC) Single event dur ing cruise 12/2023 Chronic bronchitis (HCC) 1970 s Family History Medical History Relation Name Comments Alzheimer's disease Father JADEN ROME Hypertension Father JADEN ROME triple bypass Father JADEN ROME Colon cancer Maternal Grandmother Dementia Mother Jenna [place] Diabetes Mother Jenna [place] Hearing loss Mother Jenna [place] Hypertension Mother Jenna [place] Memory loss Mother Jenna [place] Transient ischemic attack Mother Jenna [place] Cancer Paternal Grandfather large a nd small intestine cancer Depression Sister Pamela Salazar Hypertension Sister Pamela Salazar Obesity Sister Pamela Salazar Relation Name Status Comments Father JADEN ROME AD diagnosed i n 80s Maternal Grandmother Mother Jenna Rome TIAs Paternal Grandfather Sister Pamela Salazar Social History Tobacco Use Types Packs/Day Years [...] on file Legal Sex Female 1:09 AM TIME BROKER Gender Identity Female 10/05/2020 10:15 AM TIME BROKER Sexual Orientation Straight 10/05/2020 10 :15 AM TIME BROKER 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 Not on file Not on file Obstetrics History Last Filed Vital Signs Vital Sign Reading Time Taken Comments Blood Pressure 108/74 01/27/2025 1:38 PM CDT Pulse 75 01/27/2025 1:38 PM CDT Temperature 36.8 C (98.3 F) 01/27/2025 1:38 PM CDT Respiratory Rate 16 11/27/2024 10:05 AM TIME BROKER Oxygen Saturation 98% 01/27/2025 1:38 PM CDT Inhaled Oxygen Concentration - - Weight 88.2 kg (194 lb 8 oz) 01/27/2025 1:38 PM CDT Height 166.4 cm (5' 5.5 ) 01/27/2025 1:38 PM CDT Body Mass Index 31.87 01/27/2025 1:38 PM CDT Plan of Treatment Health Maintenance Due Date Last Done Comments Hepatitis B Screening 1968 DTaP/Tdap/Td Vaccine (2 - Td or Tdap) 04/08/2023 04/08/2013 Colon Cancer Screening-Colonoscopy 12/17/2023 12/16/2018, 08/07/2015 Well Visit 65+ 05/07/2024 05/07/2023, 06/2022, 10/12/2020, Additional history exists Covid-19 Vaccine (2023-2 5 season) 2024 09/13/2023, 04/13/2022, 08/01/2021, Additional history exists Depression Screening 11/27/2025 11/27/2024, 05/07/2023, 11/15/2021, Additional history exists Fall Risk Assessment 11/27/2025 11/27/2024, 05/07/2023, 11/15/2021, Additional history exists Hepatitis C Screening Completed 04/24/2017 Breast Cancer Screening-Mammogram Discontinued 02/04/2018, 02/04/2018, 11/07/2016, Additional history exists Zoster Vaccine Completed 10/16/2018, 06/08, 04/17/2013, Additional history exists Colon Cancer Screening-CT Colonography Discontinued 12/16/2018, 08/07/2015 Colon Cancer Screening-DNA Stool Discontinued 12/17/19 19, 08/07/2015 Colon Cancer Screening-FIT Discontinued 12/16/2018, Colon Cancer Screening-Sigmoidoscopy Discontinued 12/16/2018, 08/07/2015 Pneumococcal vaccine 65+ Completed 019, 05/18/2015, 07/18/2011 Influenza Vaccine Completed 07/07/2024, , 07/07/2022, Additional history exists Procedures Procedure Name Priority Date/Time Associated Diagnosis Comments SCAN - NEUROLOGY 01/13/2025 4:59 PM CDT MRI BRAIN WO CONTRAST Schedule Routine, Read Routine (OP Routine) 01/04/2025 3:46 PM CDT 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) Seizure disorder (HCC) Confusion after a seizure COLONOSCOPY Routine 12/16/2018 HM MAMMOGRAPHY Routine 02/04/2018 HEPATITIS C ANTIBODY Routine [...] diffuse cerebral and cerebellar parenchymal volume loss. Vcojv-hlsxnpl-lyxu-left middle cranial fossa arachnoid cyst or underlying [...] signed by Alex SALCEDO T: Report ID: [id number] Reading Location: [id number] Procedure Note Alex Ashton, DO - 01/05/2025 EXAM DESCRIPTION: MRI BRAIN WO CONTRAST REASON FOR STUDY: Mental status change, unknown cause, possible seizureand confustion Hx of Seizures and Alzheimer's. No surgery TECHNIQUE: Multiplanar imaging includes non-contrasted T1, T2, FLAIR, and diffusion with ADC map sequences. Additional sequence(s) sensitive [employer] products. Images stored on PACS. COMPARISON: CT [...] diffuse cerebral and cerebellar parenchymal volume loss. Mozit-[id number]-left middle cranial fossa arachnoid cyst or underlyingmore [...] signed by Alex SALCEDO T: Report ID: [id number] Reading Location: [place] [address] us Nan RILEY IMG MRI PROCEDURES Final Resul t * COLONOSCOPY (12/16/2018) Colonoscopy Abnormal us Historical Provider MD HEALTH MAINTENANCE Final Result * MAMMOGRAPHY (02/04/2018) Mammogram Normal Historical Provider MD HEALTH MAINTENANCE Final Result * Hepatitis C antibody (04/24/2017 11:05 AM CDT) Pathologist [facility] Hep C Ab NONREACT NONREACTIVE Comment: Siemens [employer] using NIKUNJ (chemiluminescent immunoassay) technology. NONREACTIVE: Antibodies [...] Most Recently Relevant to Health Maintenance Insurance * Guarantor: Kriss Worley Account Type Relation to Patient Date of Phone Billing Address Personal/Family Self [address] [place] [address] [place], [place] [id number] MEDICARE [facility] MEDICARE ADVANTAGE UHC MEDICARE ADVANTAGE [facility] MEDICARE Address: [address] [address] [place] [address] [facility] MEDICARE ADVANTAGE [facility] MEDICARE Address: [address] [address] [place] [address] Advance Directives For more information, please contact: [phone] Documents on File Type Date Recorded 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 ADVANCE DIRECTIVE 12/07/2020 3:24 PM DNR ADVANCE DIRECTIVE 09/25/2013 12:00 AM POW ER OF FINANCIAL ANALYST FINANCIAL/MEDICAL Care Teams Insole Rounder Relationship Specialty Start Date End Date Nan Blair PA [address] [place] [address] PCP - General Family Medicine 07/03/22 Jorge Jefferson MD [address] [place] [address] Consulting Physician Family Medicine 03/09/19 Lizzie Collins MD [address] [address] Wall Covering Contractor Cardiology 05/18/19 Freeman Chung MD [address] [place] [address] Referring Physician Geriatric Psychiatry 06/09/20 Maribel Andrade MD [address] [address] Consulting Physician Anesthesiology 12/31/20 Guy Rosen MD [address] [place] [address] Psychiatry 01/11/22
--- NOTE | 2025-01-28 18:36 | ECG_ITS ---
Test Date: 2025-01-28 18:47:31 Measurements Intervals Norman Rate: 115 P: 0 DC: 0 QRS: 8 QRSD: 102 T: 28 QT: 313 QTc: 433 Interpretive Statements ATRIAL FIBRILLATION WITH RAPID VENTRICULAR RESPONSE WITH ABERRANT CONDUCTION OR VENTRICULAR PREMATURE COMPLEXES NONSPECIFIC T-WAVE ABNORMALITY- ANTEROLAT/INF LEADS BASELINE WANDER- V6 ABNORMAL ECG Compared to ECG 11/20/2024 07:40:22 HEART RATE HAS DECREASED Electronically Signed On 01-28-2025 19:05:24 CDT by David Sanders D.O.
--- NOTE | 2025-01-28 18:38 | ED.AMS ---
HPI - Altered Mental Status General Chief Complaint: Altered Mental Status <Kaci Keenan APRN - Last Filed: 01/28/25 18:44> Stated Complaint: fall <Kaci Keenan APRN - Last Filed: 01/28/25 18:44> Time Seen by Provider: 01/28/25 18:30 <Kaci Keenan APRN - Last Filed: 01/28/25 18:44> Focused HPI: Patient is a 69 year female who presents to the ER with no complaints but reports feeling spacey. Her family reports patient has a history of Alzheimer's disease. They report earlier today she had a fall and bumped the front of her head. She is not on blood thinners. Patient's family also reports that she sat down her food at lunch time and went to her room because she was feeling spacey. This behavior is abnormal for her, per her family. Patient has a history of high blood pressure, thyroid issues, and memory loss. She denies any pain at the time of examination. GENERAL: Well-appearing, well-nourished, and in no acute distress. HEAD: Normocephalic. Hematoma to the top of pt's forehead. CHEST: Clear to auscultation. ?No respiratory distress. HEART: Irregular heart rate.? NEURO: ?Alert and oriented x3, but repeats self (per baseline). Patient screened in triage and initial orders placed.? ?Additional care and disposition to be based upon?diagnostic testing and treatment. <Kaci Keenan APRN - Last Filed: 01/28/25 18:44> Related Data Home Medications: Home Medications ?Medication ?Instructions ?Recorded ?Confirmed ?Last Taken ?Type amlodipine 5 mg tablet 5 mg PO DAILY 05/03/24 05/03/24 Unknown History aspirin 81 mg chewable tablet 81 mg PO DAILY 05/03/24 05/03/24 Unknown History cyanocobalamin (vitamin B-12) 500 500 mcg PO DAILY 05/03/24 05/03/24 Unknown History mcg tablet donepezil 10 mg tablet 10 mg PO DAILY 05/03/24 05/03/24 Unknown History levothyroxine 88 mcg tablet 88 mcg PO DAILY 05/03/24 05/03/24 Unknown History memantine 10 mg tablet 15 mg PO DAILY 05/03/24 05/03/24 Unknown History <Kaci Keenan, EXTERNAL GRINDER TENDER - Last Filed: 01/28/25 18:44> Allergies/Adverse Reactions: Allergies Allergy/AdvReac Type Severity Reaction Status Date / Time amoxicillin Allergy Unknown Verified 01/28/25 18:24 codeine Allergy Dizziness Verified 01/28/25 18:24 lithium Allergy kidney Verified 01/28/25 18:24 failure morphine Allergy Vomiting Verified 01/28/25 18:24 olanzapine Allergy Confusion Verified 01/28/25 18:24 Penicillins Allergy Hives Verified 01/28/25 18:24 <Kaci Keenan, EXTERNAL GRINDER TENDER - Last Filed: 01/28/25 18:44> [facility] Family History Family History: Family History (Updated 01/29/25 @ 00:38 by Papi Kline RN) Mother Hypertension Alzheimer dementia Sibling Hypertension <Kaci Keenan, EXTERNAL GRINDER TENDER - Last Filed: 01/28/25 18:44> Social History Social History: Social History Smoking status: Never smoker Alcohol intake: current Drinks per week: 1 Substance use: never Substance use type: does not use Do You Feel Safe in your Home?: Yes Lack of Transportation: No Lack of Food: Never True Current Housing: I Have Housing Concerned About Future Housing: No Difficulty Paying Gas/Electric Bills: No Difficulty Paying for Meds: No Currently Unemployed: No Education: Bachelor's Degree Difficulty w/ Childcare or Family Care: No Spiritual care concerns: No <Kaci Keenan, EXTERNAL GRINDER TENDER - Last Filed: 01/28/25 18:44> Exam Narrative: APPEARANCE: No apparent distress. A&O x3 Head: atraumatic. EYES: EOMI, NOSE: Atraumatic NECK: Trachea midline RESPIRATORY: No increased rate of breathing clear to auscultation CARDIOVASCULAR: Irregularly irregular, no peripheral edema ABDOMINAL: Non-distended soft nontender MUSCULOSKELETAl: No obvious deformities, head to toe trauma exam revealed no significant injuries or areas of tenderness on started some minor bruising the knees NEURO: Alert. Cranial nerves 2-12 grossly intact. Sensation light touch, motor function cerebellar function intact for 4 extremities. Gait exam was normal. SKIN:: Warm, dry. Normal color, minor bruising over both knees PSYCHIATRIC: Normal affect <Greg Maurer MD - Last Filed: 01/29/25 01:39> Course Vital Signs Vital signs: Vital Signs Temperature 97.6 F 01/28/25 18:32 Pulse Rate 156 H 01/28/25 18:32 Respiratory Rate 16 01/28/25 18:32 Blood Pressure 139/105 H 01/28/25 18:32 Pulse Oximetry 97 01/28/25 18:32 Oxygen Delivery Room Air 01/28/25 18:32 Temperature 98.8 F 01/29/25 00:20 Pulse Rate 91 01/29/25 00:20 Respiratory Rate 15 01/29/25 00:20 Blood Pressure 123/85 01/29/25 00:20 Pulse Oximetry 98 01/29/25 00:20 Oxygen Delivery Room Air 01/29/25 01:05 <Kaci Keenan APRN - Last Filed: 01/28/25 18:44> Vital Signs Temperature 97.6 F 01/28/25 18:32 Pulse Rate 156 H 01/28/25 18:32 Respiratory Rate 16 01/28/25 18:32 Blood Pressure 139/105 H 01/28/25 18:32 Pulse Oximetry 97 01/28/25 18:32 Oxygen Delivery Room Air 01/28/25 18:32 Temperature 98.8 F 01/29/25 00:20 Pulse Rate 91 01/29/25 00:20 Respiratory Rate 15 01/29/25 00:20 Blood Pressure 123/85 01/29/25 00:20 Pulse Oximetry 98 01/29/25 00:20 Oxygen Delivery Room Air 01/29/25 01:05 <Greg Maurer MD - Last Filed: 01/29/25 01:39> MDM - Altered Mental Status MDM Narrative Medical decision making narrative: -Course: 74-year-old female with dementia presenting feeling spacey. Despite this she is able to answer all my questions appropriately and does not appear encephalopathic. It appears her dementia is mostly with short-term memory loss. She had an unwitnessed ground fall. CT of her head was negative for bleed. She was found to be in atrial fibrillation with rapid ventricular response. She received diltiazem 10 mg x 2 and then was placed on a diltiazem drip. No history of atrial fibrillation. No echocardiogram in our system. chadsvasc >2. Given lovenox. Found have a incidental urinary tract infection has been started on ceftriaxone. Chest x-ray showed an abnormality of the distal trachea with the air column. Radiology requested a CT chest which was obtained showing morphologically suspicious enlarged lymph nodes in the mediastinum. Unclear if this is related to today's presentation. Family was informed and she will likely need a heme/Onc referral. Patient will be admitted to the hospital for further management. -DDX includes but is not limited to: Intracranial hemorrhage, infection, infarction, dehydration -Co-morbidities complicating care: Dementia hypertension, hypothyroid <Greg Maurer MD - Last Filed: 01/29/25 01:39> Lab Data Result diagrams: 01/28/25 18:52 01/28/25 18:52 <Kaci Keenan APRN - Last Filed: 01/28/25 18:44> Labs: Lab Results 01/28/25 01/28/25 01/28/25 Range/Units 18:52 19:48 19:58 WBC 9.4 (4.5-10.0) K/mm3 RBC 4.36 (4.2-5.4) M/mm3 Hgb 11.0 L (12.0-15.0) g/dL Hct 37.0 (37.0-47.0) % MCV 84.9 (80-100) fl MCH 25.2 L (26-34) pg MCHC 29.7 L (32-36) g/dl RDW 14.2 (11.5-14.5) % Plt Count 328 (150-375) k/mm3 MPV 9.6 (7.4-10.4) fl Immature Gran % (Auto) 0.3 (0-0.5) % Neut % (Auto) 77.4 H (45.5-73.1) % Lymph % (Auto) 13.9 L (18.3-44.2) % [place] % (Auto) 7.1 (2.6-8.5) % Eos % (Auto) 0.8 (0-4.4) % Baso % (Auto) 0.5 (0.2-1.2) % Lymph # (Auto) 1.31 (0.9-3.2) K/mm3 [place] # (Auto) 0.7 H (0.1-0.6) K/mm3 Eos # (Auto) 0.1 (0-0.3) K/mm3 Baso # (Auto) 0.1 (0.0-0.1) K/mm3 Abs Immat Gran (auto) 0.03 (0.00-0.031) K/mm3 Absolute Neuts (auto) 7.3 H (1.3-6.7) K/mm3 Absolute Nucleated RBC 0.000 (0.0-0.012) K/mm3 Band Neutrophils % Not Reportable Nucleated RBC % 0.0 (0.0-0.2) % Platelet Estimate Adequate (Adequate) Hypochromasia 1+ Ovalocytes 1+ Schistocytes None seen PT 14.0 (11.1-14.7) Seconds INR 1.0 APTT 29.7 (22.3-36.8) Seconds Sodium 137 (137-145) mmol/L Potassium 4.0 (3.4-5.0) mmol/L Chloride 104 (98-107) mmol/L Carbon Dioxide 24 (22-30) mmol/L Anion Gap 9 (4-12) mmol/L BUN 11 (7-17) mg/dL Creatinine 0.71 (0.7-1.0) mg/dL Estim Creat Clear Calc Not Reportable Estimated GFR > 60 (59 - ) Glucose 108 (65-110) mg/dL Calcium 9.4 (8.4-10.2) mg/dL Total Bilirubin 0.4 (0.2-1.3) mg/dL AST 33 (14-36) U/L ALT 29 (6-35) U/L Alkaline Phosphatase 154 H (38-126) U/L Troponin I < 0.012 0.016 D (0.000-0.034) ng/mL Total Protein 7.0 (6.3-8.2) g/dL Albumin 4.2 (3.5-5.1) g/dL TSH (Reflex) 2.860 (0.465-4.68) uIU/mL Urine Color Yellow (Yellow) Urine Appearance Clear (Clear) Urine pH 5.0 (5.0-9.0) Ur Specific [place] 1.022 (1.001-1.035) Urine Protein Negative (Negative) mg/dL Urine Glucose (UA) Negative (Negative) mg/dL Urine Ketones Trace H (Negative) mg/dL Ur Blood (Man) Negative (Negative) Urine Nitrate Negative (Negative) Urine Bilirubin Negative (Negative) Urine Urobilinogen 1.0 (<2.0) mg/dL Add Ur Microanalysis Reviewed Leukocyte Esterase Rfl 1+ H (Negative) CALLUM/UL Urine RBC 0-2 (0-2) /hpf Urine WBC 6-10 H (0-3) /hpf Ur Squamous Epith Cells None seen (Few) /hpf Uric Acid Crystals Present H (None) /hpf Urine Bacteria None seen /hpf Urine Casts 0-2 Influenza A (RT-PCR) Negative (Negative) Influenza B (RT-PCR) Negative (Negative) RSV (RT-PCR) Negative (Negative) SARS-CoV-2 RNA (RT-PCR) Negative (Negative) <Kaci Keenan, EXTERNAL GRINDER TENDER - Last Filed: 01/28/25 18:44> Lab Results 01/28/25 01/28/25 01/28/25 Range/Units 18:52 19:48 19:58 WBC 9.4 (4.5-10.0) K/mm3 RBC 4.36 (4.2-5.4) M/mm3 Hgb 11.0 L (12.0-15.0) g/dL Hct 37.0 (37.0-47.0) % MCV 84.9 (80-100) fl MCH 25.2 L (26-34) pg MCHC 29.7 L (32-36) g/dl RDW 14.2 (11.5-14.5) % Plt Count 328 (150-375) k/mm3 MPV 9.6 (7.4-10.4) fl Immature Gran % (Auto) 0.3 (0-0.5) % Neut % (Auto) 77.4 H (45.5-73.1) % Lymph % (Auto) 13.9 L (18.3-44.2) % [place] % (Auto) 7.1 (2.6-8.5) % Eos % (Auto) 0.8 (0-4.4) % Baso % (Auto) 0.5 (0.2-1.2) % Lymph # (Auto) 1.31 (0.9-3.2) K/mm3 [place] # (Auto) 0.7 H (0.1-0.6) K/mm3 Eos # (Auto) 0.1 (0-0.3) K/mm3 Baso # (Auto) 0.1 (0.0-0.1) K/mm3 Abs Immat Gran (auto) 0.03 (0.00-0.031) K/mm3 Absolute Neuts (auto) 7.3 H (1.3-6.7) K/mm3 Absolute Nucleated RBC 0.000 (0.0-0.012) K/mm3 Band Neutrophils % Not Reportable Nucleated RBC % 0.0 (0.0-0.2) % Platelet Estimate Adequate (Adequate) Hypochromasia 1+ Ovalocytes 1+ Schistocytes None seen PT 14.0 (11.1-14.7) Seconds INR 1.0 APTT 29.7 (22.3-36.8) Seconds Sodium 137 (137-145) mmol/L Potassium 4.0 (3.4-5.0) mmol/L Chloride 104 (98-107) mmol/L Carbon Dioxide 24 (22-30) mmol/L Anion Gap 9 (4-12) mmol/L BUN 11 (7-17) mg/dL Creatinine 0.71 (0.7-1.0) mg/dL Estim Creat Clear Calc Not Reportable Estimated GFR > 60 (59 - ) Glucose 108 (65-110) mg/dL Calcium 9.4 (8.4-10.2) mg/dL Total Bilirubin 0.4 (0.2-1.3) mg/dL AST 33 (14-36) U/L ALT 29 (6-35) U/L Alkaline Phosphatase 154 H (38-126) U/L Troponin I < 0.012 0.016 D (0.000-0.034) ng/mL Total Protein 7.0 (6.3-8.2) g/dL Albumin 4.2 (3.5-5.1) g/dL TSH (Reflex) 2.860 (0.465-4.68) uIU/mL Urine Color Yellow (Yellow) Urine Appearance Clear (Clear) Urine pH 5.0 (5.0-9.0) Ur Specific [place] 1.022 (1.001-1.035) Urine Protein Negative (Negative) mg/dL Urine Glucose (UA) Negative (Negative) mg/dL Urine Ketones Trace H (Negative) mg/dL Ur Blood (Man) Negative (Negative) Urine Nitrate Negative (Negative) Urine Bilirubin Negative (Negative) Urine Urobilinogen 1.0 (<2.0) mg/dL Add Ur Microanalysis Reviewed Leukocyte Esterase Rfl 1+ H (Negative) CALLUM/UL Urine RBC 0-2 (0-2) /hpf Urine WBC 6-10 H (0-3) /hpf Ur Squamous Epith Cells None seen (Few) /hpf Uric Acid Crystals Present H (None) /hpf Urine Bacteria None seen /hpf Urine Casts 0-2 Influenza A (RT-PCR) Negative (Negative) Influenza B (RT-PCR) Negative (Negative) RSV (RT-PCR) Negative (Negative) SARS-CoV-2 RNA (RT-PCR) Negative (Negative) <Greg Maurer MD - Last Filed: 01/29/25 01:39> Critical Care Time Critical Care Time Critical Care Time: Yes <Greg Maurer MD - Last Filed: 01/29/25 01:39> Total Critical Care Time: 35 <Greg Maurer MD - Last Filed: 01/29/25 01:39> Discharge Plan Discharge Clinical Impression: Atrial fibrillation, new onset, Acute UTI <Kaci Keenan APRN - Last Filed: 01/28/25 18:44> Patient Disposition: Still a Patient <Kaci Keenan APRN - Last Filed: 01/28/25 18:44> Condition: Stable <Kaci Keenan APRN - Last Filed: 01/28/25 18:44>
[2025-01-28 18:57] LABS: Basophils Absolute Auto 0.1 K/mm3 (0.0-0.1); Basophils Percent Auto 0.5 % (0.2-1.2); Eosinophils Absolute Auto 0.1 K/mm3 (0-0.3); Eosinophils Percent Auto 0.8 % (0-4.4); Immature Granulocyte Absolute 0.03 K/mm3 (0.00-0.031); Immature Granulocyte Percent A 0.3 % (0-0.5); Lymphocytes Absolute Auto 1.31 K/mm3 (0.9-3.2); Lymphocytes Percent Auto 13.9 % (18.3-44.2); Mean Corpuscular HGB Conc 29.7 g/dl (32-36); Mean Corpuscular Hemoglobin 25.2 pg (26-34); Mean Corpuscular Volume 84.9 fl (80-100); Mean Platelet Volume 9.6 fl (7.4-10.4); Monocytes Absolute Auto 0.7 K/mm3 (0.1-0.6); Monocytes Percent Auto 7.1 % (2.6-8.5); Neutrophils Absolute Auto 7.3 K/mm3 (1.3-6.7); Neutrophils Percent Auto 77.4 % (45.5-73.1); Platelet Count Result 328 k/mm3 (150-375); Red Blood Count 4.36 M/mm3 (4.2-5.4); Red Cell Distribution Width 14.2 % (11.5-14.5); White Blood Count 9.4 K/mm3 (4.5-10.0)
[2025-01-28 19:06] LABS: Hypochromasia 1+; Ovalocytes 1+; Platelet Estimate Adequate (Adequate); Schistocytes None Seen
[2025-01-28 19:08] LABS: Partial Thromboplastin Time 29.7 Seconds (22.3-36.8)
[2025-01-28 19:11] LABS: Alanine Aminotransferase 29 U/L (6-35); Albumin Level 4.2 g/dL (3.5-5.1); Alkaline Phosphatase 154 U/L (38-126); Anion Gap 9 mmol/L (4-12); Aspartate Amino Transferase 33 U/L (14-36); Bilirubin,Total 0.4 mg/dL (0.2-1.3); Blood Urea Nitrogen 11 mg/dL (7-17); Calcium 9.4 mg/dL (8.4-10.2); Carbon Dioxide 24 mmol/L (22-30); Chloride 104 mmol/L (98-107); Estimated Glomerular Filt Rate > 60; Glucose 108 mg/dL (65-110); Sodium 137 mmol/L (137-145)
[2025-01-28 19:23] LABS: Troponin I < 0.012 ng/mL (0.000-0.034)
[2025-01-28] MEDS: dilTIAZem HCl INJ 25 MG/5 ML VIAL 10 MG IV PUSH ×2 (20:09→22:01)
--- OUTSIDE RECORDS SUMMARY | 2025-01-28 20:09 | XMS_ITS | Encounter Summary ---
Author Organization [facility] Care Team Providers Care Technician Chemical Cleaning Name Role Phone Nan Blair Primary Care Provider [phone] Jorge Jefferson MD Primary Care Provid er Nan Blair Unavailable [phone] Nan Blair Primary Care Provider [phone] Jorge Jefferson MD Unavailable + [phone] Lizzie Collins MD Unavailable [phone] Freeman Chung MD Unavailable [phone] Maribel Andrade MD Unavailable [phone] Guy Rosen MD Unavailable Miscellaneous, Not In File Primary Care Provider Unavailable Nan Blair Primary Care Provider [phone] Encounter Details Date Type Department Care Team (Latest Contact Info) Description 04/17/2017 Orders Only [facility] CLINCONV ProviderJulieta MD [address] [place] [address] Social History Tobacco Use Types Packs/Day Years Used Date Smoking Tobacco: Never Assessed Comments Unknown Sex and Gender Information Value Date Recorded Sex Assigned at Not on file Legal Sex Female 1:09 AM SALES SUPPORT ADMINISTRATOR Gender Identity Female 10/05/2020 10:15 AM SALES SUPPORT ADMINISTRATOR Sexual Orientation Straight 10/05/2020 10 :15 AM SALES SUPPORT ADMINISTRATOR documented as of this encounter Plan of [...] on filedocumented in this encounter Care Teams Technician Chemical Cleaning Relationship Specialty Start Date End Date Nan Blair PA [address] [place] [address] PCP - General Physician Reservation Sales Agent 04/28/18 02/01/19 Jorge Jefferson MD [address] [place] [address] PCP - General Family Medicine 02/02/19 03/08/19 Nan Blair PA [address] [place] [address] PCP - General Physician Reservation Sales Agent 03/09/19 05/03/22 Miscellaneous, Not In File PCP - General 05/04/22 07/02/22 Nan Blair PA [address] [place] [address] PCP - General Family Medicine 07/03/22 Nan Blair PA [address] [facility] [place] [address] Physician Reservation Sales Agent Physician Reservation Sales Agent 02/02/19 9 Jorge Jefferson MD [address] [place] [address] Consulting Physician Family Medicine 03/09/19 Lizzie Collins MD [address] [address] Parts Identification Technician Cardiology 05/18/19 Freeman Chung MD [address] [place] [address] Referring Physician Geriatric Psychiatry 06/09/20 Maribel Andrade MD [address] [address] Consulting Physician Anesthesiology 12/31/20 Guy Rosen MD [address] [place] [address] Psychiatry 01/11/22 documented as of this encounter
--- OUTSIDE RECORDS SUMMARY | 2025-01-28 20:09 | XMS_ITS | Encounter Summary ---
Author Organization [facility] Address [address] [place] [address] Phone Care Team Providers Care Tomato Pulper Operator Name Role Phone Jorge Jefferson MD Unavailable + [phone] Lizzie Collins MD Unavailable [phone] Freeman Chung MD Unavailable [phone] Maribel Andrade MD Unavailable [phone] Guy Rosen MD Unavailable Nan Blair Primary Care Provider [phone] Encounter Details Date Type Department Care Team (Late st Contact Info) Description 01/27/2025 1:45 PM CDT Office Visit [facility] [address] [place] [address] 6th [address] [place] [address] Betsy Ryan NP [address] [place] [address] 160- Late onset Alzheimer's disease with behavioral disturbance [...] on file Legal Sex Female 1:09 AM BRAKE MECHANIC Gender Identity Female 10/05/2020 10:15 AM BRAKE MECHANIC Sexual Orientation Straight 10/05/2020 10 :15 AM BRAKE MECHANIC Occupation Industry Job Start Date Job End [...] 01/27/2025 1:45 PM CDT AFTER VISIT SUMMARY [facility] Thank [...] that you implement a durable power of tax attorney or guardianship. You may wish to consult an tax attorney regarding these matters. Level of Care: [...] about you may be included in the [facility] Data Repository. This is a list of people who have been seen in our clinic and can be used to help researchers at [facility] find people who might be interested in participating in research studies. If you signed this form, you might be contacted by some of these researchers to see if you might be interested in participating in a research project. You and family can decide if you want to hear moreabout these projects and if you would like to participate. Signing the [facility] Data Repository consent form does not mean that you are agreeing to be in a research project; it only means the investigators can contact you to see if you might be interested in research projects. RESOURCES FOR ADDITIONAL SUPPORT Alzheimer's Association of [place] Chapter: ; (toll free); http://www.alz.org, The Alzheimer's Association 29/04 Helpline provides reliable information and support to all those who need assistance. Memory [facility]: [facility] is to extend and improve quality time at home for people living with dementia and their care partners, or [email or web address].org. They provide family animal care specialist support, education and skills. [facility] will make it easier for you to enhance your skills and adapt your home setting to meet the ever-changing demands of caregiving. Jessie Ellison R.N., Rose Grower, [address] [place] [address], ; Toll Free: ext. [phone] (toll free), , Email: [email or web address] The best way to reach our team is via My Chart. This is a secure way for us to communicate about your health care. Please call The My Chart Support Desk: [phone] for help with My Chart, or [phone] to obtain a link for access. FOLLOW-UP Future Appointments Date Time Provider Department Center 01/27/2025 1:45 PM Betsy Ryan NP [facility] [address] NL We offer in person and telemedicine (virtual) visits. Please let us know your preference when scheduling. documented in this encounter Progress Notes * Betsy Ryan NP - 01/27/2025 1:45 PM CDT [facility] Follow-Up Visit [facility] Department of Neurology Betsy Ryan AGPCNP-BC Azgr-xe-fewy start time: 1343 Subjective Chief Complaint: Memory [...] visit. She continues to live at the [facility]. She has feelings of floating , describes it not feeling present or alert. She has h ad episodes of dizziness, which canvas goods fabricator were called for, she was found to [...] Good, weight stable Safety: Driving: No Living: [facility], assisted living Alcohol/Drugs: Elpidio found a bottle [...] able to operate household appliances including the carbide tool die maker. She has difficultyusing technology, including the cell [...] out and sick to stomach confusion, n/v [place] Other (See comments) and Unknown Severe reaction-Kidney [...] Drinking: Never Objective Medical records reviewed (prior [facility] visits, Neuropsychiatric Testing, labs and imaging). Imaging: [...] diffuse cerebral and cerebellar parenchymal volume loss. Jtlhq-mxcentc-xnii-left middle cranial fossa arachnoid cyst or underlying [...] signed by Alex SALCEDO T: Report ID: [id number] Reading Location: [place] [address] Labs: Lab Results Component Value Date TSH 1.13 05/21/2023 Lab Results Component Value Date [id number] [id number] 04/25/2020 Neurobehavioral Test Results: 05/23/2020 7:00 AM 12/26/2020 4:34 AM 01/01/2022 3:57 PM 01/07/2023 7:00 AM 01/20/2024 7:00 AM 07/29/2024 7:00 AM 01/27/2025 7:00 AM [facility] Neurobehavioral Status Exam Results Repository ICF signed? Yes No No No No No Verbal Fluency Total Score 22 21 20 18 21 -- -- [place] Naming (15 item) Total Score 15 15 [...] On tests of semantic memory, such as [place] Naming Test and verbal fluency (animal naming), [...] and symmetric in all four extremities. Coordination Estztd-ry-chjs normal. Rapid alternating movement normal. Gait Casual [...] current assisted living to another one in [place] closer to her sister. Based on her [...] Alzheimer's disease with behavioral disturbance (HCC) (Primary) Hbgy-gw-ndbl end time: 1414 I spent 5 minutes [...] labs, tests and medical records, time spent zclb-jq-vbyx with the patient and family during the visit, performing counselling and education, placing orders and documenting the visit in the patient's EHR. [facility] Nurse Practitioner [facility] Patient Instructions Patient Instructions AFTER VISIT SUMMARY [facility] Thank you for coming [...] and mood, and improves sleep. It???s important Kirss Worley remains mobile to maintain her independence. [...] that you implement a durable power of tax attorney or guardianship. You may wish to consult an tax attorney regarding these matters. Level of Care: [...] about you may be included in the [facility] Data Repository. This is a list of people who have been seen in our clinic and can be used to help researchers at [facility] find people who might be interested in participating in research studies. If you signed this form, you might be contacted by some of these researchers to see if you might be interested in participating in a research project. You and family can decide if you want to hear moreabout these projects and if you would like to participate. Signing the [facility] Data Repository consent form does not mean that you are agreeing to be in a research project; it only means the investigators can contact you to see if you might be interested in research projects. RESOURCES FOR ADDITIONAL SUPPORT Alzheimer's Association [facility] Chapter: ; (toll free); http://www.alz.org, The Alzheimer's Association 29/04 Helpline provides reliable information and support to all those who need assistance. Memory Residential Solution: [facility] is to extend and improve quality time at home for people living with dementia and their care partners, or Memory[facility]org. They provide family animal care specialist support, education and skills. [facility] will make it easier for you to enhance your skills and adapt your home setting to meet the ever-changing demands of caregiving. Jessie Ellison R.N., Rose Grower, [address] [place] [address], ; Toll Free: ext. [phone] (toll free), , Email: The best way to reach our team is via My Chart. This is a secure way for us to communicate about your health care. Please call The My Chart Support Desk: [phone] for help with My Chart, or [phone] to obtain a link for access. FOLLOW-UP [...] Primary documented in this encounter Care Teams Tomato Pulper Operator Relationship Specialty Start Date End Date Nan Blair PA [address] [place] [address] PCP - General Family Medicine 07/03/22 Jorge Jefferson MD [address] [place] [address] Consulting Physician Family Medicine 03/09/19 Lizzie Collins MD [address] [address] Country Printer Apprentice Cardiology 05/18/19 Freeman Chung MD [address] [place] [address] Referring Physician Geriatric Psychiatry 06/09/20 Maribel Andrade MD [address] [address] Consulting Physician Anesthesiology 12/31/20 Guy Rosen MD [address] [place] [address] Psychiatry 01/11/22 documented as of this encounter
--- OUTSIDE RECORDS SUMMARY | 2025-01-28 20:09 | XMS_ITS | Clinical Summary ---
Author Organization [facility] [employer] Address [address] [place] [address] Care Team Providers Care Career Education Teacher Name Role Phone Nan Blair Primary Care Provider [phone] Source Comments [facility] [employer],non-owned Affiliates and Associated Physician Practices is amultiple site organization consisting of ambulatory clinics and hospital sitesin [place], [place], [place] and [place]. This disclosure is being madepursuant to the Care Everywhere program and may not contain all information available regarding this patient. 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 Gender Identity Not on file Sexual Orientation [...] patient's age to complete this topic Insurance [facility] MANAGED MEDICARE ADV Member Subscriber Plan / Payer (Ef fective 2024-Present) Name:Kriss Worley Relation to Subscriber:Self Name:Kriss Worley Payer ID:[id number] (NAIC) Type:Medicare-Managed Care Address: [place] [id number] [place] [phone] Advance Directives * Full Code (Latest Code Status on File) Date Activated Date Inactivated Comments 03/21/2020 5:53 PM 03/25/2020 5:03 PM * Full Code Date Activated Date Inactivated Comments 03/19/2020 6:05 PM 03/21/2020 5:36 PM Care Teams Career Education Teacher Relationship Specialty Start Date End Date Nan Blair PA PCP - General 05/08/20
--- OUTSIDE RECORDS SUMMARY | 2025-01-28 20:09 | XMS_ITS | Encounter Summary ---
Author Organization [facility] [employer] [facility] Address [address] [place] [address] Phone Care Team Providers Care It Help Desk Manager Name Role Phone Jorge Jefferson MD Unavailable + [phone] Lizzie Collins MD Unavailable [phone] Freeman Chung MD Unavailable [phone] Maribel Andrade MD Unavailable [phone] Guy Rosen MD Unavailable Nan Blair Primary Care Provider [phone] Encounter Details Date Type Department Care Team (Late st Contact Info) Description 01/04/2025 Telephone [facility] Floor [address] [place] [address] Vivi Patel Social History Tobacco [...] on file Legal 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 * Telephone Encounter - Vivi Patel - 01/04/2025 4:45 PM CDT Patti from [facility] contacted the [facility] to inform us that Kriss had a EEG done and it cameback positive for partial seizures. Their doctor would like to discuss treatment plans due to this results. documented in this encounter Plan of Treatment Not on file documented as of this encounter Visit Diagnoses Not on filedocumented in this encounter Care Teams It Help Desk Manager Relationship Specialty Start Date End Date Nan Blair PA [address] [place] [address] PCP - General Family Medicine 07/03/22 Jorge Jefferson MD [address] [place] [address] Consulting Physician Family Medicine 03/09/19 Lizzie Collins MD [address] [facility] [address] [address] Installer Helper Cardiology 05/18/19 Freeman Chung MD [address] [place] [address] Referring Physician Geriatric Psychiatry 06/09/20 Maribel Andrade MD [address] [address] Consulting Physician Anesthesiology 12/31/20 Guy Rosen MD [address] [place] [address] Psychiatry 01/11/22 documented as of this encounter
--- OUTSIDE RECORDS SUMMARY | 2025-01-28 20:09 | XMS_ITS | Encounter Summary ---
Author Organization [facility] [employer] [facility] Address [address] [place] [address] Phone Care Team Providers Care Plaster Form Maker Name Role Phone Nan Blair Primary Care Provider [phone] Jorge Jefferson MD Primary Care Provid er Nan Blair Unavailable [phone] Nan Blair Primary Care Provider [phone] Jorge Jefferson MD Unavailable + [phone] Lizzie Collins MD Unavailable [phone] Freeman Chung MD Unavailable [phone] Maribel Andrade MD Unavailable [phone] Guy Rosen MD Unavailable Miscellaneous, Not In File Primary Care Provider Unavailable Nan Blair Primary Care Provider [phone] Encounter Details Date Type Department Care Team (Latest Contact Info) Description 11/01/2017 Orders Only [facility] Scanning, Provider Social History Tobacco Use Types Packs/Day Years Used Date Smoking Tobacco: Never Assessed Comments Unknown Sex and Gender Information Value Date Recorded Sex Assigned at Not on file 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 Gender Identity Female 10/05/2020 10:15 AM QUOTATION CLERK Sexual Orientation Straight 10/05/2020 10 :15 AM QUOTATION CLERK documented as of this encounter Plan of Treatment Not on file documented as of this encounter Procedures Procedure Name Priority Date/Time Associated Diagnosis Comments SCAN - RADIOLOGY/IMAGING 11/01/2017 documented in this encounter Results * SCAN - RADIOLOGY/IMAGING (11/01/2017) Anatomical Region Laterality Modality Other Provider Scanning Final Result documented in this encounter Visit Diagnoses Not on filedocumented in this encounter Care Teams Plaster Form Maker Relationship Specialty Start Date End Date Nan Blair PA [address] [place] [address] PCP - General Physician Human Geography Faculty Member 04/28/18 02/01/19 Jorge Jefferson MD [address] [place] [address] PCP - General Family Medicine 02/02/19 03/08/19 Nan Blair PA [address] [place] [address] PCP - General Physician Human Geography Faculty Member 03/09/19 05/03/22 Miscellaneous, Not In File PCP - General 05/04/22 07/02/22 Nan Blair PA [address] [place] [address] PCP - General Family Medicine 07/03/22 Nan Blair PA [address] [place] [address] Physician Human Geography Faculty Member Physician Human Geography Faculty Member 02/02/19 9 Jorge Jefferson MD [address] [place] [address] Consulting Physician Family Medicine 03/09/19 Lizzie Collins MD [address] [address] Integrity Manager Cardiology 05/18/19 Freeman Chung MD [address] [place] [address] Referring Physician Geriatric Psychiatry 06/09/20 Maribel Andrade MD [address] [address] Consulting Physician Anesthesiology 12/31/20 Guy Rosen MD [address] [place] [address] Psychiatry 01/11/22 documented as of this encounter
--- OUTSIDE RECORDS SUMMARY | 2025-01-28 20:09 | XMS_ITS | Referral Summary ---
Author Organization [facility] Address [address] [place] [address] Care Team Providers Care Packing Machine Feeder Name Role Phone Jorge Jefferson MD Unavailable + [phone] Lizzie Collins MD Unavailable [phone] Freeman Chung MD Unavailable [phone] Maribel Andrade MD Unavailable [phone] Guy Rosen MD Unavailable Nan Blair Primary Care Provider [phone] Encounters Date Type Department Care Team Description 01/27/2025 1:45 PM CDT Office Visit [facility] [address] [facility] 6th Floor [address] [place] [address] Betsy Ryan NP 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) (Primary Dx) 01/13/2025 Orders Only [facility] Scanning, Provider 01/12/2025 Documentation [facility] [place] [id number] [facility] First Floor [address] [place] [address] Sherly Ivey, MIRA 01/08/2025 Telephone [facility] [place] [address] [facility] First Floor [address] [place] [address] Harriett Sutherland, RMA 01/04/2025 Telephone [facility] [address] [place] [address] First Floor [address] [place] [address] Jorge, Deamelia 01/04/[address] [address] Nan Blair PA 01/04/2025 2:18 PM CDT - 01/04/2025 11:59 PM CDT Hospital Encounter [facility] MRI [address] [place] [address] 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); Seizure disorder (HCC); Confusion after a seizure Discharge Disposition: Discharge to home or self care 01/04/2025 1:12 PM CDT - 01/04/2025 11:59 PM CDT Hospital Encounter [facility] Cardiac Testing [address] [place] [address] Seizure disorder (HCC); Confusion after a seizure Discharge Disposition: Discharge to home or self care 11/27/2024 10:00 AM STENOTYPE MACHINE OPERATOR Office Visit [address] [address] Nan Blair PA 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) (Primary Dx); Seizure disorder (HCC); Confusion after a seizure; Bipolar 1 disorder, depressed, moderate (HCC); Essential (primary) hypertension 11/19/[address] [address] Nan Blair PA Medical Question/Miscellane ous [address] [address] Nan Blair PA Medical Question/Miscellane ous 11/03/2024 Telephone [facility] Accountable Care Organization [address] [place] [address] Tina Shah MA Unsuccessful Phone Call 1 ([facility]) from Last 3 Months Allergies Active Allergy Reactions Criticality Noted Date Comments Amoxicillin Unknown 02/02/2019 Codeine Other (See comments),Dizziness,Naus ea And Vomiting,Unknown Low 03/16/2016 Spaced out and sick to stomach Spaced out and sick to stomach confusion, n/v [place] Other (See comments),Unknown Low 02/02/2019 Severe reaction-Kidney [...] 11/27/2024 Assessment & Plan (11/27/2024 1:17 PM STENOTYPE MACHINE OPERATOR): Patient had a seizure 1 year ago. [...] 10/12/2020 Assessment & Plan (11/27/2024 10:55 AM STENOTYPE MACHINE OPERATOR): Progressing. Patient will continue Namenda and Aricept. [...] office; ok to continue Doing well at [facility] Assessment & Plan (11/15/2021 10:29 AM STENOTYPE MACHINE OPERATOR): Worsening. Patient will continue current meds. Followed [...] is not addictive. Agree with move to [facility]. Continue to work with Dr. Andrade, counselor and cognitive stimulation therapist. Assessment & Plan (10/12/2020 11:27 AM STENOTYPE MACHINE OPERATOR): Followed by neurology, unchanged Class 1 obesity due to exces s calories with serious comorbidity and body mass index (BMI) of 31.0 to 31.9 in adult 08/26/2019 Assessment & Plan (05/07/2023 2:29 PM CDT): Reviewed BMI Focus on healthy diet options Work on healthy changes Assessment & Plan (11/15/2021 10:28 AM STENOTYPE MACHINE OPERATOR): Uncontrolled. Goal of BMI is less than [...] month Assessment & Plan (10/12/2020 11:26 AM STENOTYPE MACHINE OPERATOR): Educated patient on healthy diet/exercise plan. Exercise [...] sugar. Assessment & Plan (08/26/2019 1:23 PM STENOTYPE MACHINE OPERATOR): Educated patient on healthy diet/exercise plan. Exercise [...] 05/25/2020 Assessment & Plan (11/15/2021 10:28 AM STENOTYPE MACHINE OPERATOR): PMH/MHA: 11/15/2021 Last pap:2012 Last mammogram: 02/04/2018 (requested report) Last dexa:02/04/2018, ordered Last colonoscopy/cologuard:08/2015, 12/16/2018 repeat 2023 Last Hep C:04/2017 Last tdap:04/08/2013 Last Prevnar/pneumovax: 05/18/2015 (13) 07/18/2011 (23) Last Shingrix: (zoster 10/07/2012) 10/16/2018, 07/03/2018 Last eye exam: 05/25/2020 Assessment & Plan (10/12/2020 11:27 AM STENOTYPE MACHINE OPERATOR): PMH/MHA: 10/12/2020 Last pap:2013 Last mammogram: 02/04/2018 Last dexa:02/04/2018 Last colonoscopy/cologuard:08/2015, 12/16/2018 repeat 2023 Last Hep C:04/2017 Last tdap:04/08/2013 Last Prevnar/pneumovax: 05/18/2015 (13) 07/18/2011 (23) Last Shingrix: (zoster 10/07/2012) 10/16/2018, 07/03/2018 Last eye exam: 05/25/2020 Assessment & Plan (08/26/2019 1:10 PM STENOTYPE MACHINE OPERATOR): PMH/MHA: 08/26/2019 Last pap:2012 Last mammogram: 02/04/2018 Last dexa:02/04/2018 Last colonoscopy/cologuard:08/2015, 12/16/2018 repeat 2023 Last Hep C:04/2017 Last tdap:04/08/2013 Last Prevnar/pneumovax: 05/18/2015 (13) 07/18/2011 (23) Last Shingrix: (zoster 10/07/2012) 10/16/2018, 07/03/2018 Last eye exam: due Recurrent major depressive disorder, in partial remission 10/13/2018 Assessment & Plan (05/07/2023 3:58 PM CDT): Chronic. Continue follow-up psychiatry. Assessment & Plan (11/15/2021 10:29 AM STENOTYPE MACHINE OPERATOR): Stable continue meds Assessment & Plan (10/12/2020 11:28 AM STENOTYPE MACHINE OPERATOR): Stable, followed by Psychiatry Assessment & Plan (05/23/2020 3:09 PM CDT): Strongly recommend consistent care and follow-up with [facility] Psychiatry to evaluate and treat [...] psychiatry Assessment & Plan (10/16/2019 1:12 PM STENOTYPE MACHINE OPERATOR): Uncontrolled. Assessment & Plan (10/14/2019 1:02 PM STENOTYPE MACHINE OPERATOR): Uncontrolled. I really feel like pt is very lonely and she needs daily interaction with other people. Encouraged pt to consider a fdc center to open her world to new hobbies, interactions with other. Need referral to psychiatrist. Need to see counselor within the next 2 wks. Memory issues may be related to depression. Assessment & Plan (08/26/2019 1:24 PM STENOTYPE MACHINE OPERATOR): Referral to psychiatrist Generalized anxiety disorder 03/12/2018 Assessment & Plan (05/07/2023 3:57 PM CDT): Chronic. Continue follow-up with psychiatrist. Assessment & Plan (11/15/2021 10:28 AM STENOTYPE MACHINE OPERATOR): Stable, continue current meds Assessment & Plan (10/12/2020 11:26 AM STENOTYPE MACHINE OPERATOR): Stable followed by Psychiatry Assessment & Plan (02/19/2020 3:30 PM CDT): Stable Assessment & Plan (11/18/2019 4:05 PM STENOTYPE MACHINE OPERATOR): Patient will hold lorazepam at this time. She is not having any anxiety Assessment & Plan (10/14/2019 1:03 PM STENOTYPE MACHINE OPERATOR): Referral psychiatrist Assessment & Plan (08/26/2019 1:22 PM STENOTYPE MACHINE OPERATOR): Stable Bipolar 1 disorder, depressed, moderate 11/06/19 18 Assessment & Plan (11/27/2024 1:17 PM STENOTYPE MACHINE OPERATOR): Chronic, stable, patient will continue her medications for Alzheimer's to include Aricept and Namenda. No additional meds needed at this time Assessment & Plan (05/07/2023 3:57 PM CDT): Chronic. Continue follow-up with psychiatrist. Assessment & Plan (11/15/2021 10:27 AM STENOTYPE MACHINE OPERATOR): Stable Assessment & Plan (10/12/2020 11:26 AM STENOTYPE MACHINE OPERATOR): Stable followed by Psychiatry Assessment & Plan (05/02/2020 2:11 PM CDT): Follow with psychiatry Assessment & Plan (02/19/2020 3:30 PM CDT): Patient has not made appointment with a psychiatrist. Patient reports she is feeling stable on her current meds. I encouraged patient to make a Psychiatry appointment Assessment & Plan (11/18/2019 4:05 PM STENOTYPE MACHINE OPERATOR): Uncontrolled. Increase Wellbutrin to 300 mg. Patient needs to see a psychiatrist. Patient given a list of psychiatrist in the area. I spoke with her lela not too long ago about patient needing to see the psychiatrist and also patient needing to consider moving into some type of fdc center to have interactions with other people Assessment & Plan (10/16/2019 3:21 PM STENOTYPE MACHINE OPERATOR): Uncontrolled. Pt does not have a psychiatrist [...] consider looking into inpatient psychiatric care at [facility] in [place]. Patient's son will be contacting his brother and they will be deciding what to do in the next day or so. Patient will be monitor closely over the weekend by [facility]. Assessment & Plan (10/14/2019 1:03 PM STENOTYPE MACHINE OPERATOR): Uncontrolled, referral to psychiatrist. Assessment & Plan (08/26/2019 1:22 PM STENOTYPE MACHINE OPERATOR): Depressed, need to see psychiatry for medication adjustment. Essential (primary) hypertension 08/15/2017 Assessment & Plan (11/27/2024 2:03 PM STENOTYPE MACHINE OPERATOR): Episodes of hypotension. We are going to hold amlodipine. We are going to have [facility] check her blood pressure daily and report numbers in 1 week. Assessment & Plan (05/07/2023 3:57 PM CDT): Chronic and controlled without medication. Continue to monitor. Assessment & Plan (11/15/2021 10:28 AM STENOTYPE MACHINE OPERATOR): Stable, continue current meds Assessment & Plan (10/12/2020 11:26 AM STENOTYPE MACHINE OPERATOR): Stable continue meds Assessment & Plan (02/19/2020 3:30 PM CDT): Stable Assessment & Plan (11/18/2019 4:05 PM STENOTYPE MACHINE OPERATOR): Stable continue meds Assessment & Plan (08/26/2019 1:22 PM STENOTYPE MACHINE OPERATOR): Stable, continue current meds Primary osteoarthritis of right knee 08/15/2017 Assessment & Plan (05/07/2023 2:31 PM CDT): Continue Tylenol as needed for pain. Assessment & Plan (11/15/2021 10:29 AM STENOTYPE MACHINE OPERATOR): Patient takes Tylenol for pain. Assessment & Plan (10/12/2020 11:28 AM STENOTYPE MACHINE OPERATOR): Uncontrolled. Patient will hopefully get to start physical therapy soon once her insurance has been reinstated. Patient may also need to see Ortho in the near future Assessment & Plan (08/26/2019 1:24 PM STENOTYPE MACHINE OPERATOR): stable Unsteady gait 11/09/2016 Assessment & Plan (05/07/2023 3:58 PM CDT): Completed physical therapy. No recent falls. Assessment & Plan (11/15/2021 10:29 AM STENOTYPE MACHINE OPERATOR): Recommend physical therapy. Recommend using a cane Assessment & Plan (10/12/2020 11:29 AM STENOTYPE MACHINE OPERATOR): Uncontrolled. Patient is doing okay with her [...] daily. Assessment & Plan (08/26/2019 1:24 PM STENOTYPE MACHINE OPERATOR): Use cane at all times, Recommend PT. Pt will consider that. Assessment & Plan (02/02/2019 11:25 AM CDT): Order physical therapy Glucose intolerance (impaired glucose tolerance) 09/03/2016 Assessment & Plan (05/07/2023 3:57 PM CDT): Diet controlled. Labs ordered today. Assessment & Plan (11/15/2021 10:28 AM STENOTYPE MACHINE OPERATOR): Diet controlled, requested lab results Assessment & Plan (10/12/2020 11:27 AM STENOTYPE MACHINE OPERATOR): Stable, diet controlled Assessment & Plan (02/19/2020 3:30 PM CDT): Diet controlled check labs Assessment & Plan (08/26/2019 1:23 PM STENOTYPE MACHINE OPERATOR): Diet controlled, due for labs Obstructive sleep apnea 08/14/2016 Assessment & Plan (05/07/2023 2:30 PM CDT): Not on CPAP. Assessment & Plan (11/15/2021 10:29 AM STENOTYPE MACHINE OPERATOR): Stable Assessment & Plan (10/12/2020 11:28 AM STENOTYPE MACHINE OPERATOR): Stable, no CPAP machine at this time Assessment & Plan (08/26/2019 1:13 PM STENOTYPE MACHINE OPERATOR): No cpap machine Other allergic rhinitis 08/14/2016 Assessment & Plan (05/07/2023 2:30 PM CDT): Continue current management. Assessment & Plan (11/15/2021 10:29 AM STENOTYPE MACHINE OPERATOR): Stable Assessment & Plan (10/12/2020 11:28 AM STENOTYPE MACHINE OPERATOR): Stable p.r.n. meds Assessment & Plan (08/26/2019 1:23 PM STENOTYPE MACHINE OPERATOR): stable Other specified hypothyroidism 12/30/2015 Assessment & Plan (05/07/2023 2:30 PM CDT): Continue current dose of levothyroxine. Due for TSH. Assessment & Plan (11/15/2021 10:29 AM STENOTYPE MACHINE OPERATOR): Stable, continue meds, requested lab Assessment & Plan (10/12/2020 11:28 AM STENOTYPE MACHINE OPERATOR): Stable continue meds Assessment & Plan (02/19/2020 3:31 PM CDT): Check labs Assessment & Plan (08/26/2019 1:24 PM STENOTYPE MACHINE OPERATOR): Stable, check labs Mixed hyperlipidemia 12/30/2015 Assessment & Plan (05/07/2023 2:30 PM CDT): Diet controlled. Will continue to monitor lipid panel. Assessment & Plan (11/15/2021 10:29 AM STENOTYPE MACHINE OPERATOR): Diet controlled. Requested lab Assessment & Plan (10/12/2020 11:28 AM STENOTYPE MACHINE OPERATOR): Stable, patient is not on meds at this time Assessment & Plan (02/19/2020 3:31 PM CDT): Check labs Assessment & Plan (08/26/2019 1:23 PM STENOTYPE MACHINE OPERATOR): Check labs Vitamin D deficiency 12/30/2015 Assessment & Plan (05/07/2023 2:31 PM CDT): Continue vitamin-D supplement. Assessment & Plan (11/15/2021 10:30 AM STENOTYPE MACHINE OPERATOR): Stable continue vitamin Assessment & Plan (10/12/2020 11:29 AM STENOTYPE MACHINE OPERATOR): Stable continue vitamin Assessment & Plan (02/19/2020 3:31 PM CDT): Check labs Assessment & Plan (08/26/2019 1:25 PM STENOTYPE MACHINE OPERATOR): Continue vit d Resolved Problems Problem Noted Date Diagnosed Date Resolved Date Unspecified mood (affective) disorder ([facility]) 03/21/2020 11/15/2021 Assessment & Plan (10/12/2020 11:29 AM STENOTYPE MACHINE OPERATOR): Stable followed by Psychiatry Assessment & Plan [...] 2 Assessment & Plan (10/12/2020 11:28 AM STENOTYPE MACHINE OPERATOR): Stable continue meds Assessment & Plan (11/18/2019 4:05 PM STENOTYPE MACHINE OPERATOR): With patient's change in urinary symptoms I would like to hold the VESIcare and see how she does. UA in office today was negative Assessment & Plan (08/26/2019 1:24 PM STENOTYPE MACHINE OPERATOR): Stable, continue meds Mild neurocognitive disorder 12/20/2017 [...] 2019 Assessment & Plan (10/14/2019 1:03 PM STENOTYPE MACHINE OPERATOR): Referral to memory clinic at [facility]. Scores show mild decline. Assessment & Plan (08/26/2019 1:23 PM STENOTYPE MACHINE OPERATOR): Need to rtc for memory testing. 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 08/26/2019 Leucocytosis 03/26/2017 08/26/2019 MARTIN (dyspnea on exertion) 12/11/2016 History of IBS 09/03/2016 08/26/2019 History of radiofrequency ab lation procedure for cardiac arrhythmia 09/03/2016 08/26/2019 Vulvar dystrophy 09/03/2016 10/12/2020 Assessment & Plan (08/26/2019 1:25 PM STENOTYPE MACHINE OPERATOR): Stable History of rhabdomyolysis 08/14/2016 Atrial flutter ([facility]) 02/14/201606/2022 Assessment & Plan (10/12/2020 11:26 AM STENOTYPE MACHINE OPERATOR): Stable Assessment & Plan (02/19/2020 3:30 PM CDT): Stable Assessment & Plan (08/26/2019 1:22 PM STENOTYPE MACHINE OPERATOR): Stable followed by cardiology Immunizations Immunization Administration [...] on file Legal Sex Female 1:09 AM STENOTYPE MACHINE OPERATOR Gender Identity Female 10/05/2020 10:15 AM STENOTYPE MACHINE OPERATOR Sexual Orientation Straight 10/05/2020 10 :15 AM STENOTYPE MACHINE OPERATOR 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 Zhxth-qvsrqhj-ovow-left middle cranial fossa arachnoid cyst or underlying [...] signed by Alex SALCEDO T: Report ID: [id number] Reading Location: [place] [address] Procedure Note Alex Ashton, DO - 01/05/2025 [...] diffuse cerebral and cerebellar parenchymal volume loss. Jwiyx-golmdgi-nikb-left middle cranial fossa arachnoid cyst or underlyingmore [...] signed by Alex SALCEDO T: Report ID: [id number] Reading Location: [place] [address] Nan RILEY IMG MRI PROCEDURES Final Resul t * COLONOSCOPY (12/16/2018) Colonoscopy Abnormal Historical Provider MD HEALTH MAINTENANCE Final Result * MAMMOGRAPHY (02/04/2018) Pathologist [facility] Mammogram Normal Historical Provider MD HEALTH MAINTENANCE Final Result * Hepatitis C antibody (04/24/2017 11:05 AM CDT) Pathologist [facility] Hep C Ab NONREACT NONREACTIVE Comment: Siemens [...] MICROBIOLOGY - GENERAL ORD ERABLES Final Result [facility] HISTORICAL RESULTS from Last 3 Months or Most Recently Relevant to Health Maintenance Insurance [address] [place], [place] [id number] MEDICARE [facility] MEDICARE ADVANTAGE [facility] MEDICARE ADVANTAGE [place] [id number] [facility] MEDICARE ADVANTAGE [facility] MED[facility] Address: [facility] [address] [place] [address] Advance Directives For more information, please contact: [phone] Documents on File Type Date Recorded Patient Software Engineer Mobile Expl anation ADVANCE DIRECTIVE 12/07/2020 3:24 PM DNR ADVANCE DIRECTIVE 09/25/2013 12:00 AM [facility] PA[employer] FINANCIAL/MEDICAL Care Teams Packing Machine Feeder Relationship Specialty Start Date End Date Nan Blair PA [address] [place] [address] PCP - General Family Medicine 07/03/22 Jorge Jefferson MD [address] [place] [address] Consulting Physician Family Medicine 03/09/19 Lizzie Collins MD [address] [facility] [address] [address] Minister Of Religion Cardiology 05/18/19 Freeman Chung MD [address] [place] [address] Referring Physician Geriatric Psychiatry 06/09/20 Maribel Andrade MD [address] [address] Consulting Physician Anesthesiology 12/31/20 Guy Rosen MD [address] [place] [address] Psychiatry 01/11/22
--- OUTSIDE RECORDS SUMMARY | 2025-01-28 20:09 | XMS_ITS | Clinical Summary ---
Author Organization [facility] Address [address] [place] [address] Care Team Providers Care Hazardous Materials Waste Technician Name Role Phone Jorge Jefferson MD Unavailable [phone] Lizzie Collins MD Unavailable [phone] Freeman Chung MD Unavailable [phone] Maribel Andrade MD Unavailable [phone] Guy Rosen MD Unavailable Nan Blair Primary Care Provider [phone] Allergies Active Allergy Reactions Criticality Noted Date Comments Amoxicillin Unknown 02/02/2019 Codeine Other (See comments),Dizziness,Naus ea And Vomiting,Unknown Low 03/16/2016 Spaced out and sick to stomach Spaced out and sick to stomach confusion, n/v [place] Other (See comments),Unknown Low 02/02/2019 Severe reaction-Kidney [...] 11/27/2024 Assessment & Plan (11/27/2024 1:17 PM COLLOID MILL OPERATOR): Patient had a seizure 1 year [...] 10/12/2020 Assessment & Plan (11/27/2024 10:55 AM COLLOID MILL OPERATOR): Progressing. Patient will continue Namenda and [...] ASL Assessment & Plan (11/15/2021 10:29 AM COLLOID MILL OPERATOR): Worsening. Patient will continue current meds. [...] is not addictive. Agree with move to [facility]. Continue to work with Dr. Andrade, counselor and cognitive stimulation therapist. Assessment & Plan (10/12/2020 11:27 AM COLLOID MILL OPERATOR): Followed by neurology, unchanged Class 1 obesity due to exces s calories with serious comorbidity and body mass index (BMI) of 31.0 to 31.9 in adult 08/26/2019 Assessment & Plan (05/07/2023 2:29 PM CDT): Reviewed BMI Focus on healthy diet options Work on healthy changes Assessment & Plan (11/15/2021 10:28 AM COLLOID MILL OPERATOR): Uncontrolled. Goal of BMI is less [...] month Assessment & Plan (10/12/2020 11:26 AM COLLOID MILL OPERATOR): Educated patient on healthy diet/exercise plan. [...] sugar. Assessment & Plan (08/26/2019 1:23 PM COLLOID MILL OPERATOR): Educated patient on healthy diet/exercise plan. [...] 05/25/2020 Assessment & Plan (11/15/2021 10:28 AM COLLOID MILL OPERATOR): PMH/MHA: 11/15/2021 Last pap:2012 Last mammogram: 02/04/2018 (requested report) Last dexa:02/04/2018, ordered Last colonoscopy/cologuard:08/2015, 12/16/2018 repeat 2023 Last Hep C:04/2017 Last tdap:04/08/2013 Last Prevnar/pneumovax: 05/18/2015 (13) 07/18/2011 (23) Last Shingrix: (zoster 10/07/2012) 10/16/2018, 07/03/2018 Last eye exam: 05/25/2020 Assessment & Plan (10/12/2020 11:27 AM COLLOID MILL OPERATOR): PMH/MHA: 10/12/2020 Last pap:2012 Last mammogram: 02/04/2018 Last dexa:02/04/2018 Last colonoscopy/cologuard:08/2015, 12/16/2018 repeat 2023 Last Hep C:04/2017 Last tdap:04/08/2013 Last Prevnar/pneumovax: 05/18/2015 (13) 07/18/2011 (23) Last Shingrix: (zoster 10/07/2012) 10/16/2018, 07/03/2018 Last eye exam: 05/25/2020 Assessment & Plan (08/26/2019 1:10 PM COLLOID MILL OPERATOR): PMH/MHA: 08/26/2019 Last pap:2012 Last mammogram: 02/04/2018 Last dexa:02/04/2018 Last colonoscopy/cologuard:08/2015, 12/16/2018 repeat 2023 Last Hep C:04/2017 Last tdap:04/08/2013 Last Prevnar/pneumovax: 05/18/2015 (13) 07/18/2011 (23) Last Shingrix: (zoster 10/07/2012) 10/16/2018, 07/03/2018 Last eye exam: due Recurrent major depressive disorder, in partial remission 10/13/2018 Assessment & Plan (05/07/2023 3:58 PM CDT): Chronic. Continue follow-up psychiatry. Assessment & Plan (11/15/2021 10:29 AM COLLOID MILL OPERATOR): Stable continue meds Assessment & Plan (10/12/2020 11:28 AM COLLOID MILL OPERATOR): Stable, followed by Psychiatry Assessment & Plan (05/23/2020 3:09 PM CDT): Strongly recommend consistent care and follow-up with [facility] Psychiatry to evaluate and treat mood [...] psychiatry Assessment & Plan (10/16/2019 1:12 PM COLLOID MILL OPERATOR): Uncontrolled. Assessment & Plan (10/14/2019 1:02 PM COLLOID MILL OPERATOR): Uncontrolled. I really feel like pt is very lonely and she needs daily interaction with other people. Encouraged pt to consider a residential center to open her world to new hobbies, interactions with other. Need referral to psychiatrist. Need to see counselor within the next 2 wks. Memory issues may be related to depression. Assessment & Plan (08/26/2019 1:24 PM COLLOID MILL OPERATOR): Referral to psychiatrist Generalized anxiety disorder 03/12/2018 Assessment & Plan (05/07/2023 3:57 PM CDT): Chronic. Continue follow-up with psychiatrist. Assessment & Plan (11/15/2021 10:28 AM COLLOID MILL OPERATOR): Stable, continue current meds Assessment & Plan (10/12/2020 11:26 AM COLLOID MILL OPERATOR): Stable followed by Psychiatry Assessment & Plan (02/19/2020 3:30 PM CDT): Stable Assessment & Plan (11/18/2019 4:05 PM COLLOID MILL OPERATOR): Patient will hold lorazepam at this time. She is not having any anxiety Assessment & Plan (10/14/2019 1:03 PM COLLOID MILL OPERATOR): Referral psychiatrist Assessment & Plan (08/26/2019 1:22 PM COLLOID MILL OPERATOR): Stable Bipolar 1 disorder, depressed, moderate 11/06/19 18 Assessment & Plan (11/27/2024 1:17 PM COLLOID MILL OPERATOR): Chronic, stable, patient will continue her medications for Alzheimer's to include Aricept and Namenda. No additional meds needed at this time Assessment & Plan (05/07/2023 3:57 PM CDT): Chronic. Continue follow-up with psychiatrist. Assessment & Plan (11/15/2021 10:27 AM COLLOID MILL OPERATOR): Stable Assessment & Plan (10/12/2020 11:26 AM COLLOID MILL OPERATOR): Stable followed by Psychiatry Assessment & Plan (05/02/2020 2:11 PM CDT): Follow with psychiatry Assessment & Plan (02/19/2020 3:30 PM CDT): Patient has not made appointment with a psychiatrist. Patient reports she is feeling stable on her current meds. I encouraged patient to make a Psychiatry appointment Assessment & Plan (11/18/2019 4:05 PM COLLOID MILL OPERATOR): Uncontrolled. Increase Wellbutrin to 300 mg. Patient needs to see a psychiatrist. Patient given a list of psychiatrist in the area. I spoke with her jaspreeton not too long ago about patient needing to see the psychiatrist and also patient needing to consider moving into some type of residential center to have interactions with other people Assessment & Plan (10/16/2019 3:21 PM COLLOID MILL OPERATOR): Uncontrolled. Pt does not have a [...] consider looking into inpatient psychiatric care at [facility] in [place]. Patient's son will be contacting his brother and they will be deciding what to do in the next day or so. Patient will be monitor closely over the weekend by Papo. Assessment & Plan (10/14/2019 1:03 PM COLLOID MILL OPERATOR): Uncontrolled, referral to psychiatrist. Assessment & Plan (08/26/2019 1:22 PM COLLOID MILL OPERATOR): Depressed, need to see psychiatry for medication adjustment. Essential (primary) hypertension 08/15/2017 Assessment & Plan (11/27/2024 2:03 PM COLLOID MILL OPERATOR): Episodes of hypotension. We are going to hold amlodipine. We are going to have [facility] check her blood pressure daily and report numbers in 1 week. Assessment & Plan (05/07/2023 3:57 PM CDT): Chronic and controlled without medication. Continue to monitor. Assessment & Plan (11/15/2021 10:28 AM COLLOID MILL OPERATOR): Stable, continue current meds Assessment & Plan (10/12/2020 11:26 AM COLLOID MILL OPERATOR): Stable continue meds Assessment & Plan (02/19/2020 3:30 PM CDT): Stable Assessment & Plan (11/18/2019 4:05 PM COLLOID MILL OPERATOR): Stable continue meds Assessment & Plan (08/26/2019 1:22 PM COLLOID MILL OPERATOR): Stable, continue current meds Primary osteoarthritis of right knee 08/15/2017 Assessment & Plan (05/07/2023 2:31 PM CDT): Continue Tylenol as needed for pain. Assessment & Plan (11/15/2021 10:29 AM COLLOID MILL OPERATOR): Patient takes Tylenol for pain. Assessment & Plan (10/12/2020 11:28 AM COLLOID MILL OPERATOR): Uncontrolled. Patient will hopefully get to start physical therapy soon once her insurance has been reinstated. Patient may also need to see Ortho in the near future Assessment & Plan (08/26/2019 1:24 PM COLLOID MILL OPERATOR): stable Unsteady gait 11/09/2016 Assessment & Plan (05/07/2023 3:58 PM CDT): Completed physical therapy. No recent falls. Assessment & Plan (11/15/2021 10:29 AM COLLOID MILL OPERATOR): Recommend physical therapy. Recommend using a cane Assessment & Plan (10/12/2020 11:29 AM COLLOID MILL OPERATOR): Uncontrolled. Patient is doing okay with [...] daily. Assessment & Plan (08/26/2019 1:24 PM COLLOID MILL OPERATOR): Use cane at all times, Recommend PT. Pt will consider that. Assessment & Plan (02/02/2019 11:25 AM CDT): Order physical therapy Glucose intolerance (impaired glucose tolerance) 09/03/2016 Assessment & Plan (05/07/2023 3:57 PM CDT): Diet controlled. Labs ordered today. Assessment & Plan (11/15/2021 10:28 AM COLLOID MILL OPERATOR): Diet controlled, requested lab results Assessment & Plan (10/12/2020 11:27 AM COLLOID MILL OPERATOR): Stable, diet controlled Assessment & Plan (02/19/2020 3:30 PM CDT): Diet controlled check labs Assessment & Plan (08/26/2019 1:23 PM COLLOID MILL OPERATOR): Diet controlled, due for labs Obstructive sleep apnea 08/14/2016 Assessment & Plan (05/07/2023 2:30 PM CDT): Not on CPAP. Assessment & Plan (11/15/2021 10:29 AM COLLOID MILL OPERATOR): Stable Assessment & Plan (10/12/2020 11:28 AM COLLOID MILL OPERATOR): Stable, no CPAP machine at this time Assessment & Plan (08/26/2019 1:13 PM COLLOID MILL OPERATOR): No cpap machine Other allergic rhinitis 08/14/2016 Assessment & Plan (05/07/2023 2:30 PM CDT): Continue current management. Assessment & Plan (11/15/2021 10:29 AM COLLOID MILL OPERATOR): Stable Assessment & Plan (10/12/2020 11:28 AM COLLOID MILL OPERATOR): Stable p.r.n. meds Assessment & Plan (08/26/2019 1:23 PM COLLOID MILL OPERATOR): stable Other specified hypothyroidism 12/30/2015 Assessment & Plan (05/07/2023 2:30 PM CDT): Continue current dose of levothyroxine. Due for TSH. Assessment & Plan (11/15/2021 10:29 AM COLLOID MILL OPERATOR): Stable, continue meds, requested lab Assessment & Plan (10/12/2020 11:28 AM COLLOID MILL OPERATOR): Stable continue meds Assessment & Plan (02/19/2020 3:31 PM CDT): Check labs Assessment & Plan (08/26/2019 1:24 PM COLLOID MILL OPERATOR): Stable, check labs Mixed hyperlipidemia 12/30/2015 Assessment & Plan (05/07/2023 2:30 PM CDT): Diet controlled. Will continue to monitor lipid panel. Assessment & Plan (11/15/2021 10:29 AM COLLOID MILL OPERATOR): Diet controlled. Requested lab Assessment & Plan (10/12/2020 11:28 AM COLLOID MILL OPERATOR): Stable, patient is not on meds at this time Assessment & Plan (02/19/2020 3:31 PM CDT): Check labs Assessment & Plan (08/26/2019 1:23 PM COLLOID MILL OPERATOR): Check labs Vitamin D deficiency 12/30/2015 Assessment & Plan (05/07/2023 2:31 PM CDT): Continue vitamin-D supplement. Assessment & Plan (11/15/2021 10:30 AM COLLOID MILL OPERATOR): Stable continue vitamin Assessment & Plan (10/12/2020 11:29 AM COLLOID MILL OPERATOR): Stable continue vitamin Assessment & Plan (02/19/2020 3:31 PM CDT): Check labs Assessment & Plan (08/26/2019 1:25 PM COLLOID MILL OPERATOR): Continue vit d Resolved Problems Problem Noted Date Diagnosed Date Resolved Date Unspecified mood (affective) disorder ([facility]) 03/21/2020 11/15/2021 Assessment & Plan (10/12/2020 11:29 AM COLLOID MILL OPERATOR): Stable followed by Psychiatry Assessment & [...] 2 Assessment & Plan (10/12/2020 11:28 AM COLLOID MILL OPERATOR): Stable continue meds Assessment & Plan (11/18/2019 4:05 PM COLLOID MILL OPERATOR): With patient's change in urinary symptoms I would like to hold the VESIcare and see how she does. UA in office today was negative Assessment & Plan (08/26/2019 1:24 PM COLLOID MILL OPERATOR): Stable, continue meds Mild neurocognitive disorder [...] 2019 Assessment & Plan (10/14/2019 1:03 PM COLLOID MILL OPERATOR): Referral to memory clinic at [facility]. Scores show mild decline. Assessment & Plan (08/26/2019 1:23 PM COLLOID MILL OPERATOR): Need to rtc for memory testing. 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 08/26/2019 Leucocytosis 03/26/2017 08/26/2019 MARTIN (dyspnea on exertion) 12/11/2016 History of IBS 09/03/2016 08/26/2019 History of radiofrequency ab lation procedure for cardiac arrhythmia 09/03/2016 08/26/2019 Vulvar dystrophy 09/03/2016 10/12/2020 Assessment & Plan (08/26/2019 1:25 PM COLLOID MILL OPERATOR): Stable History of rhabdomyolysis 08/14/2016 Atrial flutter (CMS/HCC) 02/14/201606/2022 Assessment & Plan (10/12/2020 11:26 AM COLLOID MILL OPERATOR): Stable Assessment & Plan (02/19/2020 3:30 PM CDT): Stable Assessment & Plan (08/26/2019 1:22 PM COLLOID MILL OPERATOR): Stable followed by cardiology Encounters Date Type Department Care Team Description 01/27/2025 1:45 PM CDT Office Visit [facility] [address] [place] [address] 6th Floor [address] [place] [id number] Betsy Ryan NP 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) (Primary Dx) 01/13/2025 Orders Only [facility], Provider 01/12/2025 Documentation [facility] First Floor [address] [place] [address] Sherly Ivey, CHARGE OPERATOR 01/08/2025 Telephone [facility] First Floor [address] [place] [address] Harriett Sutherland, VINNY 01/04/2025 2:18 PM CDT - 01/04/2025 11:59 PM CDT Hospital Encounter [facility] MRI [address] [place] [address] 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); Seizure disorder (HCC); Confusion after a seizure Discharge Disposition: Discharge to home or self care 01/04/2025 1:12 PM CDT - 01/04/2025 11:59 PM CDT Hospital Encounter [facility] Cardiac Testing [address] [place] [address] Seizure disorder (HCC); Confusion after a seizure Discharge Disposition: Discharge to home or self care 01/04/2025 Telephone [facility] [address] [place] [address] [address] [place] [address] Vivi Patel 01/04/[address] [address] Nan Blair PA 11/27/2024 10:00 AM COLLOID MILL OPERATOR Office Visit [address] [address] Nan Blair PA 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) (Primary Dx); Seizure disorder (HCC); Confusion after a seizure; Bipolar 1 disorder, depressed, moderate (HCC); Essential (primary) hypertension 11/19/[address] [address] Nan Blair PA Medical Question/Miscellane ous [address] [address] Nan Blair PA Medical Question/Miscellane ous 11/03/2024 Telephone [facility] Accountable Care Organization [address] [place] [address] Tina Shah MA Unsuccessful Phone Call 1 ([facility] AWV) from Last 3 Months Immunizations Immunization [...] on file Legal Sex Female 1:09 AM COLLOID MILL OPERATOR Gender Identity Female 10/05/2020 10:15 AM COLLOID MILL OPERATOR Sexual Orientation Straight 10/05/2020 10 :15 AM COLLOID MILL OPERATOR 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 Oxlxh-fzubalw-tewp-left middle cranial fossa arachnoid cyst or underlying [...] signed by Alex SALCEDO T: Report ID: [id number] Reading Location: [id number] Procedure Note Alex Ashton, DO - 01/05/2025 EXAM DESCRIPTION: MRI BRAIN WO CONTRAST REASON FOR STUDY: Mental status change, unknown cause, possible seizureand confustion Hx of Seizures and Alzheimer's. No surgery TECHNIQUE: Multiplanar imaging includes non-contrasted T1, T2, FLAIR, and diffusion with ADC map sequences. Additional sequence(s) sensitive [employer] products. Images stored on PACS. COMPARISON: CT [...] diffuse cerebral and cerebellar parenchymal volume loss. Upsof-owvndfv-oqzs-left middle cranial fossa arachnoid cyst or underlyingmore [...] signed by Alex SALCEDO T: Report ID: [id number] Reading Location: [place] [address] [place] Nan [facility] MRI PROCEDURES Final Resul t * COLONOSCOPY (12/16/2018) Colonoscopy Abnormal us Historical Provider MD HEALTH MAINTENANCE Final Result * MAMMOGRAPHY (02/04/2018) Mammogram Normal Historical Provider MD HEALTH MAINTENANCE Final Result * Hepatitis C antibody (04/24/2017 11:05 AM CDT) Pathologist [facility] Hep C Ab NONREACT NONREACTIVE 04/24/2017 8:34 PM CDT [facility] HISTORICAL RESULTS Comment: [employer] using NIKUNJ (chemiluminescent immunoassay) technology. NONREACTIVE: Antibodies [...] MICROBIOLOGY - GENERAL ORD ERABLES Final Result [facility] HISTORICAL RESULTS from Last 3 Months or Most Recently Relevant to Health Maintenance Insurance [place], [place] [id number] MEDICARE [facility] MEDICARE ADVANTAGE UHC MEDICARE ADVANTAGE [facility] MEDICARE ADVANTAGE Advance Directives For more information, please contact: [phone] Documents on File Type Date Recorded Patient Administrative Court Justice Expl anation ADVANCE DIRECTIVE 12/07/2020 3:24 PM DNR ADVANCE DIRECTIVE 09/25/2013 12:00 AM POW ER OF MANAGER EQUITY FINANCIAL/MEDICAL Care Teams Hazardous Materials Waste Technician Relationship Specialty Start Date End Date Nan Blair PA [address] [place] [address] PCP - General Family Medicine 07/03/22 Jorge Jefferson MD [address] [place] [address] Consulting Physician Family Medicine 03/09/19 Lizzie Collins MD [address] [address] Freight Solicitor Cardiology 05/18/19 Freeman Chung MD [address] [place] [address] Referring Physician Geriatric Psychiatry 06/09/20 Maribel Andrade MD [address] [address] Consulting Physician Anesthesiology 12/31/20 Guy Rosen MD [address] [place] [address] Psychiatry 01/11/22
--- OUTSIDE RECORDS SUMMARY | 2025-01-28 20:09 | XMS_ITS | Encounter Summary ---
Author Organization [facility] Address [address] [place] [address] Phone Care Team Providers Care Senior Human Resources Representative Name Role Phone Nan Blair Primary Care Provider [phone] Jorge Jefferson MD Unavailable [phone] Lizzie Collins MD Unavailable [phone] Freeman Chung MD Unavailable [phone] Maribel Andrade MD Unavailable [phone] Guy Rosen MD Unavailable Miscellaneous, Not In File Primary Care Provider Unavailable Nan Blair Primary Care Provider [phone] Encounter Details Date Type Department Care Team [...] on file Legal Sex Female 1:09 AM ASSISTANT MANAGER PT Gender Identity Female 10/05/2020 10:15 AM ASSISTANT MANAGER PT Sexual Orientation Straight 10/05/2020 10 :15 AM ASSISTANT MANAGER PT Occupation Industry Job Start Date Job End [...] on filedocumented in this encounter Care Teams Senior Human Resources Representative Relationship Specialty Start Date End Date Nan Blair PA [address] [place] [address] PCP - General Physician Gem Stone Cutter 03/09/19 05/03/22 Miscellaneous, Not In File PCP - General 05/04/22 07/02/22 Nan Blair PA [address] [place] [address] PCP - General Family Medicine 07/03/22 Jorge Jefferson MD [address] [place] [address] Consulting Physician Family Medicine 03/09/19 Lizzie Collins MD [address] [facility] [place] [address] Fireperson Cardiology 05/18/19 Freeman Chung MD [address] [place] [address] Referring Physician Geriatric Psychiatry 06/09/20 Maribel Andrade MD [address] [facility] [address] [place] [address] Consulting Physician Anesthesiology 12/31/20 Guy Rosen MD [address] [place] [address] Psychiatry 01/11/22 documented as of this encounter
--- OUTSIDE RECORDS SUMMARY | 2025-01-28 20:09 | XMS_ITS | Encounter Summary ---
Author Organization [facility] Facility Care Team Providers Care Charge Out Clerk Name Role Phone Nan Blair Primary Care Provider [phone] Jorge Jefferson MD Primary Care Provid er Nan Blair Unavailable [phone] Nan Blair Primary Care Provider [phone] Jorge Jefferson MD Unavailable [phone] Lizzie Collins MD Unavailable [phone] Freeman Chung MD Unavailable [phone] Maribel Andrade MD Unavailable [phone] Guy Rosen MD Unavailable Miscellaneous, Not In File Primary Care Provider Unavailable Nan Blair Primary Care Provider [phone] Encounter Details Date Type Department Care Team (Latest Contact Info) Description 11/01/2017 Orders Only [facility] ProviderJulieta MD [address] [place] [address] Social History Tobacco Use Types Packs/Day Years Used Date Smoking Tobacco: Never Assessed Comments Unknown Sex and Gender Information Value Date Recorded Sex Assigned at Not on file Legal Sex Female 1:09 AM LAYDOWN MACHINE OPERATOR Gender Identity Female 10/05/2020 10:15 AM LAYDOWN MACHINE OPERATOR Sexual Orientation Straight 10/05/2020 10 :15 AM LAYDOWN MACHINE OPERATOR documented as of this encounter Plan of Treatment Not on file documented as of this encounter Procedures Procedure Name Priority Date/Time Associated Diagnosis Comments CARDIOLOGY REPORT 11/01/2017 12: 00 AM LAYDOWN MACHINE OPERATOR documented in this encounter Results * CARDIOLOGY REPORT (11/01/2017 12:00 AM LAYDOWN MACHINE OPERATOR) Anatomical Region Laterality Modality Other Narrative 11/01/2017 12:00 AM LAYDOWN MACHINE OPERATOR Ordered by an unspecified provider. us Historical Provider [facility] Final Result documented in this encounter Visit Diagnoses Not on filedocumented in this encounter Care Teams Charge Out Clerk Relationship Specialty Start Date End Date Nan Blair PA [address] [place] [address] PCP - General Physician Religious Education Director 04/28/18 02/01/19 Jorge Jefferson MD [address] [place] [address] PCP - General Family Medicine 02/02/19 03/08/19 Nan lBair PA [address] [place] [address] PCP - General Physician Religious Education Director 03/09/19 05/03/22 Miscellaneous, Not In File PCP - General 05/04/22 07/02/22 Nan Blair PA [address] [place] [address] PCP - General Family Medicine 07/03/22 Nan Blair PA [address] [place], [place] [address] Physician Religious Education Director Physician Religious Education Director 02/02/19 9 Jorge Jefferson MD [address] [place] [address] Consulting Physician Family Medicine 03/09/19 Lizzie Collins MD [address] [address] Prize Jacker Cardiology 05/18/19 Freeman Chung MD [address] [place] [address] Referring Physician Geriatric Psychiatry 06/09/20 Maribel Andrade MD [address] [address] Consulting Physician Anesthesiology 12/31/20 Guy Rosen MD [address] [place] [address] Psychiatry 01/11/22 documented as of this encounter
--- OUTSIDE RECORDS SUMMARY | 2025-01-28 20:09 | XMS_ITS | Encounter Summary ---
Author Organization [facility] Facility Care Team Providers Care Stereoptic Projection Topographer Name Role Phone Nan Blair Primary Care Provider [phone] Jorge Jefferson MD Primary Care Provid er Nan Blair Unavailable [phone] Nan Blair Primary Care Provider [phone] Jorge Jefferson MD Unavailable + [phone] Lizzie Collins MD Unavailable [phone] Freeman Chung MD Unavailable [phone] Maribel Andrade MD Unavailable [phone] Guy Rosen MD Unavailable Miscellaneous, Not In File Primary Care Provider Unavailable Nan Blair Primary Care Provider [phone] Encounter Details Date Type Department Care Team (Latest Contact Info) Description 08/15/2017 Orders Only [facility]IN[facility] ProviderJulieta MD [address] [place] [id number] Social History Tobacco Use Types Packs/Day Years Used Date Smoking Tobacco: Never Assessed Comments Unknown Sex and Gender Information Value Date Recorded Sex Assigned at Not on file Legal Sex Female 1:09 AM 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 Gender Identity Female 10/05/2020 10:15 AM 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 Sexual Orientation Straight 10/05/2020 10 :15 AM 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 documented as of this encounter Plan of Treatment Not on file documented as of this encounter Procedures Procedure Name Priority Date/Time Associated Diagnosis Comments CARDIOLOGY REPORT 08/15/2017 12: 00 AM 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 documented in this encounter Results * CARDIOLOGY REPORT (08/15/2017 12:00 AM 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) Anatomical Region Laterality Modality Other Narrative 08/15/2017 12:00 AM 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 Ordered by an unspecified provider. us Historical Provider [facility] Final Result documented in this encounter Visit Diagnoses Not on filedocumented in this encounter Care Teams Stereoptic Projection Topographer Relationship Specialty Start Date End Date Nan Blair PA [address] [place] [address] PCP - General Physician Drug Department Worker 04/28/18 02/01/19 Jorge Jefferson MD [address] [place] [address] PCP - General Family Medicine 02/02/19 03/08/19 Nan Blair PA [address] [place] [address] PCP - General Physician Drug Department Worker 03/09/19 05/03/22 Miscellaneous, Not In File PCP - General 05/04/22 07/02/22 Nan Blair PA [address] [place] [address] PCP - General Family Medicine 07/03/22 Nan Blair PA [address] [place], [place] [address] Physician Drug Department Worker Physician Drug Department Worker 02/02/19 9 Jorge Jefferson MD [address] [place] [address] Consulting Physician Family Medicine 03/09/19 Lizzie Collins MD [address] [address] Detention Attendant Cardiology 05/18/19 Freeman Chung MD [address] [place] [address] Referring Physician Geriatric Psychiatry 06/09/20 Maribel Andrade MD [address] [address] Consulting Physician Anesthesiology 12/31/20 Guy Rosen MD [address] [place] [address] Psychiatry 01/11/22 documented as of this encounter
--- OUTSIDE RECORDS SUMMARY | 2025-01-28 20:09 | XMS_ITS | Clinical Summary ---
Author Organization [facility] Address [address] [place] [address] Care Team Providers Care Social Services Analyst Name Role Phone Nan Blair Primary Care Provider [phone] Allergies Active Allergy Reactions Criticality Noted Date Comments Codeine Nausea and Vomiting,Other (see comment) Low 03/16/2016 Spaced out and sick to stomach [facility] Other (see comment) Low 02/02/2019 Severe reaction-Kidney [...] October 2019 Bipolar 1 disorder, depressed, moderate ([facility]) 11/06/2017 Overview (03/17/2020): Last Assessment & Plan: Patient has not made appointment with a psychiatrist. Patient reports she is feeling stable on her current meds. I encouraged patient to make a Psychiatry appointment Bipolar 1 disorder, depressed, moderate ([facility]) 10/30/2017 Mild cognitive impairment with memory loss [...] Last Assessment & Plan: stable Atrial flutter ([facility]) 02/14/2016 Overview (03/17/2020): Last Assessment & Plan: [...] to complete this topic Insurance MED REPLACE [facility] MEDICARE MED REPLACE [facility] MEDICARE Advance Directives Documents on File Type Date Recorded Patient Drag Down Expl anation Advance Directives and Living Will 11/05/2017 9:06 AM [employer] DRIVER Advance Directives and Living Will 08/17/2013 ADVANCE DIRECTIVE * DNR (Latest Code Status on File) Date Activated Date Inactivated Comments 03/17/2020 9:43 AM 03/18/2020 1:18 PM * Full Code Date Activated Date Inactivated Comments 10/29/2017 4:12 PM 11/04/2017 4:02 PM Care Teams Social Services Analyst Relationship Specialty Start Date End Date Nan Blair PA [address] [place] [address] PCP - General 04/04/14
--- OUTSIDE RECORDS SUMMARY | 2025-01-28 20:09 | XMS_ITS | Encounter Summary ---
Author Organization [facility] Address [address] [place] [address] Phone Care Team Providers Care Educational Technologist Name Role Phone Nan Blair Primary Care Provider [phone] Jorge Jefferson MD Unavailable [phone] Lizzie Collins MD Unavailable [phone] Freeman Chung MD Unavailable [phone] Maribel Andrade MD Unavailable [phone] Guy Rosen MD Unavailable Miscellaneous, Not In File Primary Care Provider Unavailable Nan Blair Primary Care Provider [phone] Encounter Details Date Type Department Care Team [...] on file Legal Sex Female 1:09 AM [employer]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 Gender Identity Female 10/05/2020 10:15 AM [employer] SUPERVISOR Sexual Orientation Straight 10/05/2020 10 :15 AM [employer] SUPERVISOR Occupation Industry Job Start Date Job End [...] on filedocumented in this encounter Care Teams Educational Technologist Relationship Specialty Start Date End Date Nan Blair PA [address] [place] [address] PCP - General Physician Sales And Marketing Representative 03/09/19 05/03/22 Miscellaneous, Not In File PCP - General 05/04/22 07/02/22 Nan Blair PA [address] [place] [address] PCP - General Family Medicine 07/03/22 Jorge Jefferson MD [address] [place] [address] Consulting Physician Family Medicine 03/09/19 Lizzie Collins MD [address] [place] [address] Service Greeter Cardiology 05/18/19 Freeman Chung MD [address] [place] [address] Referring Physician Geriatric Psychiatry 06/09/20 Maribel Andrade MD [address] [facility] [address] [place] [address] Consulting Physician Anesthesiology 12/31/20 Guy Rosen MD [address] [place] [address] Psychiatry 01/11/22 documented as of this encounter
[2025-01-28] MEDS: SODIUM CHLORIDE 0.9% IV 1,000 ML 999 ML IV CONT ×2 (20:10)
[2025-01-28 20:17] LABS: Add Urine Microscopic? YES; Appearance Urine Clear (Clear); Bacteria Urine None Seen /hpf; Bilirubin Urine Negative (Negative); Blood Urine Negative (Negative); Color Urine Yellow (Yellow); Glucose Urine UA Negative (Negative); Ketones Urine Trace mg/dL (Negative); Leukocyte Esterase Ur 1+ LEU/UL (Negative); Need Manual Microscopic Reviewed; Nitrate Urine Negative (Negative); Non Pathogenic Casts 0-2; Protein Urine Negative (Negative); RBC Urine 0-2 /hpf (0-2); Specific Grav Ur 1.022 (1.001-1.035); Squamous Epithelial Cell Urine None Seen /hpf (Few); Uric Acid Crystals Urine Present /hpf
[2025-01-28 20:31] LABS: Influenza A QL RT-PCR Negative (Negative); Influenza B QL RT-PCR Negative (Negative); RSV RNA, RT-PCR Negative (Negative); SARS-CoV-2 RNA PCR Negative (Negative)
[2025-01-28] MEDS: ENOXAPARIN 100 MG/ML SYRINGE 88 MG SUB-Q (20:47)
[2025-01-28] MEDS: dilTIAZem 100 MG/100 ML 100 MG/100 ML BAG IV CONT (22:02)
[2025-01-28 22:59] LABS: Troponin I 0.016 ng/mL (0.000-0.034)
[2025-01-29] VITALS (18 sets, daily range): BP systolic 115–144; BP diastolic 65–96; PULSE 74–131; RESP 15–28; TEMP 36.5–37.5; O2SAT 95–100; BMI 32.6
--- NOTE | 2025-01-29 | ECHO_ITS ---
Patient Info Name: Kriss Worley Age: 74 years : 1950 Gender: Female Ht: 65 in Wt: 196 lbs BSA: 2.05 m2 HR: 115 bpm BP: 121 / 76 mmHg Heart Rhythm: Atrial Fibrillation Technical Quality: Fair Exam Date: 01/29/2025 12:42 PM Exam Location: Echo Lab Patient Status: Inpatient Admit Date: 01/28/2025 Staff Ordering Physician: Karla Nguyen MD Secretary Bookkeeper: Maricruz Presley RDCS Attending Provider: Karla Nguyen MD Exam Type: CA echo doppler color flow Study Info Indications - New onset Afib Complete two-dimensional, color flow and Doppler transthoracic echocardiogram is performed. Summary 1. Complete two-dimensional, color flow and Doppler transthoracic echocardiogram is performed. 2. Left ventricular chamber dimension is moderately enlarged. 3. Left ventricular systolic function is normal, estimated at 55-60%. 4. The left ventricular diastolic function is abnormal. 5. E/e' 11 is mildly elevated. 6. Atrial fibrillation. 7. Left atrial chamber dimension is moderately enlarged. 8. There is mild aortic valve sclerosis. 9. The mitral valve has mildly calcified annulus. 10. There is moderate mitral valve regurgitation. 11. There is mild tricuspid valve regurgitation. 12. Mild pulmonary hypertension, estimated pulmonary arterial systolic pressure is 45 mmHg. 13. Dilated inferior vena cava with >50% collapse upon inspiration consistent with elevated right atrial pressure, 10 mmHg. Left Ventricle E/e' 11 is mildly elevated. Atrial fibrillation. Left ventricular chamber dimension is moderately enlarged. Left ventricular systolic function is normal, estimated at 55-60%. The left ventricular diastolic function is abnormal. Right Ventricle Right ventricular systolic function is normal and with normal TAPSE 2.0 cm. Right ventricular chamber dimension is normal. Left Atria Left atrial chamber dimension is moderately enlarged. Right Atria Right atrial chamber dimension is normal. Aortic Valve The aortic valve is trileaflet. There is mild aortic valve sclerosis. There is no aortic valve stenosis. There is no aortic valve regurgitation. Pulmonic Valve There is no pulmonic regurgitation. Mitral Valve The mitral valve has mildly calcified annulus. There is no mitral valve stenosis. There is moderate mitral valve regurgitation. Tricuspid Valve There is mild tricuspid valve regurgitation. Mild pulmonary hypertension, estimated pulmonary arterial systolic pressure is 45 mmHg. Pericardium/Pleural There is no pericardial effusion. Inferior Vena Cava Dilated inferior vena cava with >50% collapse upon inspiration consistent with elevated right atrial pressure, 10 mmHg. Aorta The aortic root size at the sinus of Valsalva is normal. Left Ventricular Outflow Tract Name Value Normal LVOT 2D LVOT Diameter 2.0 cm LVOT Doppler LVOT Peak Gradient 3 mmHg LVOT Mean Gradient 1 mmHg LVOT VTI 16 cm LVOT VTI/AV VTI Ratio 0.4 LVOT Stroke Volume 49 ml LVOT CO 3.8 l/min LVOT CI 1.9 l/min/m2 Pulmonic Valve Name Value Normal RVOT Doppler RVOT Peak Gradient 2 mmHg PV Doppler PV Peak Gradient 4 mmHg Mitral Valve Name Value Normal MV Doppler MV Decel [place] 717 cm/s2 MV PHT 48 ms MV Area (PHT) 4.6 cm2 4.0-5.0 MV Diastolic Function MV E Peak Velocity 119 cm/s MV A Peak Velocity 2 cm/s MV E/A 72.3 MV Decel Time 166 ms MV Annular TDI MV E/e' (Septal) 14.6 <=8.0 MV E/e' (Lateral) 9.2 <=8.0 MV E/e' (Average) 11.9 Tricuspid Valve Name Value Normal TV Regurgitation Doppler TR Peak Velocity 298 cm/s TR Peak Gradient 35 mmHg Estimated PAP/RSVP RA Pressure 10 mmHg <=5 PA Systolic Pressure 45 mmHg <36 RV Systolic Pressure 45 mmHg <36 Aortic Valve Name Value Normal AV Doppler AV Peak Velocity 176 cm/s AV Peak Gradient 12 mmHg AV Mean Gradient 7 mmHg AV VTI 38 cm AV Area (Cont Eq VTI) 1.3 cm2 >=3.0 AV Area (Cont Eq Silvio) 1.4 cm2 AV Regurgitation 2D LVOT Area 3.0 cm2 Ventricles Name Value Normal LV Dimensions 2D/MM IVS Diastolic Thickness (2D) 1.0 cm 0.6-1.0 LVID Diastole (2D) 5.9 cm 3.8-5.2 LVIW Diastolic Thickness (2D) 0.9 cm 0.6-0.9 LVID Systole (2D) 4.1 cm 2.2-3.5 LVOT Diameter 2.0 cm LV Mass (2D Cubed) 236.52 g 67.00-162.00 LV Mass Index (2D Cubed) 115 g/m2 43-95 Relative Wall Thickness (2D) 0.31 LV Fractional Shortening/Ejection Fraction 2D/MM LV Fractional Shortening (2D) 30 % 27-45 LV EF (2D Teicholz) 56 % 54-74 LV Diastolic Volume (4C MOD) 158 ml LV EF (4C MOD) 50 % LV Diastolic Volume (2C MOD) 142 ml LV EF (2C MOD) 56 % LV Diastolic Volume (BP MOD) 149 ml 46-106 LV Diastolic Volume Index (BP MOD) 73 ml/m2 29-61 LV Systolic Volume (BP MOD) 71 ml 14-42 LV Systolic Volume Index (BP MOD) 35 ml/m2 8-24 LV EF (BP MOD) 52 % 54-74 LV Diastolic Length (4C) 7.5 cm LV Systolic Length (4C) 6.3 cm LV Stroke Volume (4C MOD) 79 ml Atria Name Value Normal LA Dimensions LA Volume (4C A-L) 98 ml LA Volume (BP A-L) 94 ml RA Dimensions RA Area (4C) 16.8 cm2 <=18.0 Report Signatures
--- NOTE | 2025-01-29 00:27 | ADMGEN ---
This patient, Kriss Worley, was admitted to IMU Room 214-01. Patient/family oriented to hospital policies and general routines including ID bracelet, bed and alarms, visiting hours, pain management, procedures, bathroom and other care routines, personal items, smoking policy, room service/diet, and visiting hours. Information on how to activate the Rapid Response Team has been discussed. Patient/Family are encouraged to report perceived risks to care and to ask questions if they do not understand what they are told or what they should do.
--- NOTE | 2025-01-29 02:01 | PM.IMHP ---
H&P: HPI History of Present Illness Date/Time: 01/29/25 02:01 Chief Complaint: Fall Narrative: This is a 74-year-old female who presents to [facility] via EMS from her usual nursing facility in accompanied by her 2 children for the complaint of feeling spacey. The patient has a history of Alzheimer's dementia, hypothyroidism, hypertension. She is usually A&O times 2-3 but reports feeling spacey for many years. Upon evaluation in the ER she reports feeling just fine, this seems to be inaccurate as the son says she has a very poor historian and does not elucidate her symptoms very well. She was about her usual on the day of admission 01/28/2025 when she had an unwitnessed fall and apparently bumped to the front of her head. The patient has no recollection of the fall. She was fine afterwards but then in the community areas was noted to be not paying attention and doing odd things. The family was concerned. On arrival she was found to be in atrial fibrillation with RVR. WBC 9.4, hemoglobin 11, INR 1.0, BUN 11, serum creatinine 0.71, TSH 2.86, alkaline phosphatase mildly elevated at 154, troponin negative, urinalysis with trace ketones, 1+ leukocyte esterase, 6-10 wbc's, quad viral screen negative. Head CT does not demonstrate any acute abnormalities, chest CT demonstrates morphologically suspicious enlarged lymph nodes within the mediastinum. She was given 2 L normal saline bolus, diltiazem 20 mg IV total and then placed on diltiazem 10 milligrams/hour GTT. This improved her heart rate. She was also started on Lovenox 88 mg subQ q.12 hours for elevated chads Vasc score. Given ceftriaxone as well. Review of Systems Review of Systems: All systems reviewed & are unremarkable except as noted in HPI and below (HPI) [facility] Family History Family History (Updated 01/29/25 @ 00:38 by Papi Kline RN) Mother Hypertension Alzheimer dementia Sibling Hypertension Social History Social History Smoking status: Never smoker Alcohol intake: current Drinks per week: 1 Substance use: never Substance use type: does not use Do You Feel Safe in your Home?: Yes Lack of Transportation: No Lack of Food: Never True Current Housing: I Have Housing Concerned About Future Housing: No Difficulty Paying Gas/Electric Bills: No Difficulty Paying for Meds: No Currently Unemployed: No Education: Bachelor's Degree Difficulty w/ Childcare or Family Care: No Spiritual care concerns: No Meds Home Medications and Allergies Home Medications ?Medication ?Instructions ?Recorded ?Confirmed ?Type amlodipine 5 mg tablet 5 mg PO DAILY 05/03/24 05/03/24 History amoxicillin 875 mg-potassium 1 tablet PO Q12H 5 days #10 tabs 05/03/24 Rx clavulanate 125 mg tablet aspirin 81 mg chewable tablet 81 mg PO DAILY 05/03/24 05/03/24 History cyanocobalamin (vitamin B-12) 500 500 mcg PO DAILY 05/03/24 05/03/24 History mcg tablet donepezil 10 mg tablet 10 mg PO DAILY 05/03/24 05/03/24 History levothyroxine 88 mcg tablet 88 mcg PO DAILY 05/03/24 05/03/24 History memantine 10 mg tablet 15 mg PO DAILY 05/03/24 05/03/24 History Allergies Allergy/AdvReac Type Severity Reaction Status Date / Time amoxicillin Allergy Unknown Verified 01/28/25 18:24 codeine Allergy Dizziness Verified 01/28/25 18:24 lithium Allergy kidney Verified 01/28/25 18:24 failure morphine Allergy Vomiting Verified 01/28/25 18:24 olanzapine Allergy Confusion Verified 01/28/25 18:24 Penicillins Allergy Hives Verified 01/28/25 18:24 Vital Signs Vital Signs - 24 hr 01/28/25 18:32 01/28/25 18:44 01/28/25 18:47 Temperature 97.6 F Pulse Rate 156 H 118 H Respiratory Rate 16 Blood Pressure 139/105 H Pulse Oximetry 97 96 Oxygen Delivery Room Air 01/28/25 19:06 01/28/25 20:27 01/28/25 20:31 Temperature Pulse Rate 116 H 99 101 H Respiratory Rate 18 19 17 Blood Pressure 143/91 H 140/83 130/81 Pulse Oximetry 95 96 93 Oxygen Delivery 01/28/25 20:46 01/28/25 21:01 01/28/25 21:46 Temperature Pulse Rate 104 H 103 H 134 H Respiratory Rate 22 H 21 H 19 Blood Pressure 120/86 133/74 131/107 H Pulse Oximetry 97 96 95 Oxygen Delivery 01/28/25 21:47 01/28/25 22:02 01/29/25 00:08 Temperature Pulse Rate 121 H 101 H 80 Respiratory Rate 25 H 28 H Blood Pressure 128/67 139/92 H 115/65 Pulse Oximetry 100 95 Oxygen Delivery 01/29/25 00:20 01/29/25 01:05 Temperature 98.8 F Pulse Rate 91 Respiratory Rate 15 Blood Pressure 123/85 Pulse Oximetry 98 Oxygen Delivery Room Air Exam Const: General: comfortable and no acute distress Other: A&O x2. HENMT: Mouth: Yes moist mucous membranes Other: No obvious superficial trauma. No bleeding or trauma within the oral mucosa Eyes: Pupils: Equal, round and reactive pupils present Neck: Neck: supple Resp: Effort & Inspection: normal respiratory effort Auscultation: clear to auscultation bilaterally Cardio: Rate: regular rate and tachycardic Rhythm: abnormal rhythm Heart sounds: no gallops, no murmurs and no rubs GI: Inspection: non-distended GI Palp: Yes Soft to palpation and No Tenderness to palpation present (GI) : General: Yes bladder normal to palpation Neuro: Motor exam (neuro): 5/5 motor strength present throughout Sensory Exam: normal sensation Extrem: General: no edema H&P: Results Labs Labs: Short CBC 01/28/25 Range/Units 18:52 WBC 9.4 (4.5-10.0) K/mm3 Hgb 11.0 L (12.0-15.0) g/dL Hct 37.0 (37.0-47.0) % Plt Count 328 (150-375) k/mm3 BMP 01/28/25 18:52 Sodium 137 Potassium 4.0 Chloride 104 Carbon Dioxide 24 BUN 11 Creatinine 0.71 Glucose 108 Calcium 9.4 Cardiac Enzymes 01/28/25 01/28/25 Range/Units 18:52 19:48 Troponin I < 0.012 0.016 D (0.000-0.034) ng/mL Liver Function 01/28/25 Range/Units 18:52 Total Bilirubin 0.4 (0.2-1.3) mg/dL AST 33 (14-36) U/L ALT 29 (6-35) U/L Alkaline Phosphatase 154 H (38-126) U/L Albumin 4.2 (3.5-5.1) g/dL Urine 01/28/25 Range/Units 19:58 Urine Color Yellow (Yellow) Urine Appearance Clear (Clear) Urine pH 5.0 (5.0-9.0) Ur Specific [place] 1.022 (1.001-1.035) Urine Protein Negative (Negative) mg/dL Urine Glucose (UA) Negative (Negative) mg/dL Assessment and Plan Assessment and plan (1) Atrial fibrillation, new onset: Code(s): I48.91 - Unspecified atrial fibrillation Status: Acute (2) Acute UTI: Code(s): N39.0 - Urinary tract infection, site not specified Status: Acute (3) Fall: Code(s): W19.XXXA - Unspecified fall, initial encounter Status: Acute Plan This is a 74-year-old female who presents to [facility] via EMS from her usual nursing facility in accompanied by her 2 children for the complaint of feeling spacey. The patient has a history of Alzheimer's dementia, hypothyroidism, hypertension. She is usually A&O times 2-3 but reports feeling spacey for many years. Upon evaluation in the ER she reports feeling just fine, this seems to be inaccurate as the son says she has a very poor historian and does not elucidate her symptoms very well. She was about her usual on the day of admission 01/28/2025 when she had an unwitnessed fall and apparently bumped to the front of her head. The patient has no recollection of the fall. She was fine afterwards but then in the community areas was noted to be not paying attention and doing odd things. The family was concerned. On arrival she was found to be in atrial fibrillation with RVR. WBC 9.4, hemoglobin 11, INR 1.0, BUN 11, serum creatinine 0.71, TSH 2.86, alkaline phosphatase mildly elevated at 154, troponin negative, urinalysis with trace ketones, 1+ leukocyte esterase, 6-10 wbc's, quad viral screen negative. Head CT does not demonstrate any acute abnormalities, chest CT demonstrates morphologically suspicious enlarged lymph nodes within the mediastinum. She was given 2 L normal saline bolus, diltiazem 20 mg IV total and then placed on diltiazem 10 milligrams/hour GTT. This improved her heart rate. She was also started on Lovenox 88 mg subQ q.12 hours for elevated chads Vasc score. Given ceftriaxone as well. ----- Atrial fibrillation with rapid ventricular rate -currently on diltiazem GTT at 10 milligrams/hour. She wavers between 90s and 130s. Start metoprolol 25 mg p.o. b.i.d. and wean GTT as tolerated. -continue telemetry in the IMU. -check 2D echocardiogram -continue Lovenox 1 mcg per kg subQ b.i.d. Acute UTI -patient has no symptomatology to indicate infection however she does have a abnormal UA and she is a very poor historian. Continue ceftriaxone and follow up urine culture. Fall at [facility] -unclear the etiology of this fall whether that be mechanical, seizure, syncope, arrhythmia. -continue telemetry, fall precautions, seizure precautions. Ambulate with assistance. -consult Neurology with her history of seizure. 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 daily -check free T4, free T3 Hypertension -hold [employer] DEPARTMENT SUPER[employer]OR amlodipine for now. Metoprolol 25 mg p.o. b.i.d. started on 01/29/2025 Pathological mediastinal lymph nodes Alzheimer's dementia -restart [employer] DEPARTMENT SUPERVISOR memantine ----- Patient wishes to be DNR. Two children present on admission agreed. Saline lock IV. Telemetry. Fall precaution, seizure precaution Heart healthy diet. PT/OT, ambulate with assistance denies illicit drug use, alcohol, tobacco use [facility] at [facility] Hospitalist MIPS Advance Care Plan I have confirmed that the patient's Advanced Care Plan is present, code status is documented, or surrogate decision maker is listed in patient medical record.: Yes Medication Reconciliation I have utilized all available resources to obtain, update and review the patients current medications (includes all prescriptions, OTC, herbals, cannabis, and nutritional supplements).: Yes
[2025-01-29 05:05] LABS: Hemoglobin 9.6 g/dL (12.0-15.0); Mean Corpuscular Hemoglobin 25.9 pg (26-34); Mean Corpuscular Volume 86.3 fl (80-100); Mean Platelet Volume 9.7 fl (7.4-10.4); Platelet Count Result 259 k/mm3 (150-375); Red Blood Count 3.71 M/mm3 (4.2-5.4); Red Cell Distribution Width 14.3 % (11.5-14.5); White Blood Count 6.5 K/mm3 (4.5-10.0)
[2025-01-29 05:14] LABS: Anion Gap 7 mmol/L (4-12); Blood Urea Nitrogen 9 mg/dL (7-17); Calcium 8.6 mg/dL (8.4-10.2); Carbon Dioxide 20 mmol/L (22-30); Chloride 108 mmol/L (98-107); Estimated CRCL calculation 83 ml/min; Estimated Glomerular Filt Rate > 60; Glucose 113 mg/dL (65-110); Magnesium 1.7 mg/dL (1.6-2.3); Potassium 3.8 mmol/L (3.4-5.0); Sodium 135 mmol/L (137-145)
[2025-01-29 05:38] LABS: Free T4 Free Thyroxine 1.45 ng/dL (0.78-2.19)
[2025-01-29] MEDS: LEVOTHYROXINE SODIUM 88 MCG TABLET PO (06:58)
[2025-01-29] MEDS: DONEPEZIL HCL 10 MG TABLET PO (09:01)
[2025-01-29] MEDS: MEMANTINE 5 MG TABLET PO (09:01)
[2025-01-29] MEDS: CHOLECALCIFEROL 1,000 UNITS TABLET 1000 UNITS PO (09:01)
[2025-01-29] MEDS: lamoTRIgine 25 MG TABLET PO ×2 (09:01→21:40)
[2025-01-29] MEDS: CYANOCOBALAMIN 500 MCG TABLET PO (09:01)
[2025-01-29] MEDS: ENOXAPARIN 100 MG/ML SYRINGE 88 MG SUB-Q ×2 (09:02→21:39)
--- NOTE | 2025-01-29 11:16 | PC.NURSE ---
On 01/29/25, the student, [Geovanna Garay], provided care and completed [facility] documentation on this patient. I have reviewed the student's documentation and agree with the findings.
--- NOTE | 2025-01-29 13:59 | P.PNIM_ITS ---
Progress Note: A&P Assessment and Plan (1) Acute UTI: Code(s): N39.0 - Urinary tract infection, site not specified Status: Acute Assessment and Plan: Continue with IV antibiotics monitor culture. (2) Atrial fibrillation, new onset: Code(s): I48.91 - Unspecified atrial fibrillation Status: Acute Assessment and Plan: Heart rate control. Continue current treatment. (3) Fall: Code(s): W19.XXXA - Unspecified fall, initial encounter Status: Acute Assessment and Plan: Physical therapy once patient was stable. Plan This is a 74-year-old female who presents to [facility] via EMS from her usual nursing facility in accompanied by her 2 children for the complaint of feeling spacey. The patient has a history of Alzheimer's dementia, hypothyroidism, hypertension. She is usually A&O times 2-3 but reports feeling spacey for many years. Upon evaluation in the ER she reports feeling just fine, this seems to be inaccurate as the son says she has a very poor historian and does not elucidate her symptoms very well. She was about her usual on the day of admission 01/28/2025 when she had an unwitnessed fall and apparently bumped to the front of her head. The patient has no recollection of the fall. She was fine afterwards but then in the community areas was noted to be not paying attention and doing odd things. The family was concerned. On arrival she was found to be in atrial fibrillation with RVR. WBC 9.4, hemoglobin 11, INR 1.0, BUN 11, serum creatinine 0.71, TSH 2.86, alkaline phosphatase mildly elevated at 154, troponin negative, urinalysis with trace ketones, 1+ leukocyte esterase, 6-10 wbc's, quad viral screen negative. Head CT does not demonstrate any acute abnormalities, chest CT demonstrates morphologically suspicious enlarged lymph nodes within the mediastinum. She was given 2 L normal saline bolus, diltiazem 20 mg IV total and then placed on diltiazem 10 milligrams/hour GTT. This improved her heart rate. She was also started on Lovenox 88 mg subQ q.12 hours for elevated chads Vasc score. Given ceftriaxone as well. ----- Atrial fibrillation with rapid ventricular rate -currently on diltiazem GTT at 10 milligrams/hour. She wavers between 90s and 130s. Start metoprolol 25 mg p.o. b.i.d. and wean GTT as tolerated. -continue telemetry in the IMU. -check 2D echocardiogram -continue Lovenox 1 mcg per kg subQ b.i.d. Acute UTI -patient has no symptomatology to indicate infection however she does have a abnormal UA and she is a very poor historian. Continue ceftriaxone and follow up urine culture. Fall at retirement -unclear the etiology of this fall whether that be mechanical, seizure, syncope, arrhythmia. -continue telemetry, fall precautions, seizure precautions. Ambulate with assistance. -consult Neurology with her history of seizure. -PT OT evaluations Seizure disorder -restart [employer]ROLL [employer]ENEFITS MANAGER antiepileptics Hypothyroidism -restart PA[employer]ROLL [employer] BENEFITS MANAGER levothyroxine 88 mcg p.o. daily -check free T4, free T3 Hypertension -hold PAYROLL [employer] BENEFITS MANAGER amlodipine for now. Metoprolol 25 mg p.o. b.i.d. started on 01/29/2025 Pathological mediastinal lymph nodes Alzheimer's dementia -restart PAYROLL [employer] BENEFITS MANAGER memantine ----- Patient wishes to be DNR. Two children present on admission agreed. Saline lock IV. Telemetry. Fall precaution, seizure precaution Heart healthy diet. PT/OT, ambulate with assistance denies illicit drug use, alcohol, tobacco use Patient resides [facility] Subjective Date/time seen: 01/29/25 13:59 Interval history: Patient was seen during the morning rounds today. No sob or chest pain Mood stable Review of Systems Review of Systems: All systems reviewed & are unremarkable except as noted in HPI and below (HPI) Exam Const: General: comfortable and no acute distress Other: A&O x2. HENMT: Mouth: Yes moist mucous membranes Other: No obvious superficial trauma. No bleeding or trauma within the oral mucosa Eyes: Pupils: Equal, round and reactive pupils present Neck: Neck: supple Resp: Effort & Inspection: normal respiratory effort Auscultation: clear to auscultation bilaterally Cardio: Rate: regular rate and tachycardic Rhythm: abnormal rhythm Heart sounds: no gallops, no murmurs and no rubs GI: Inspection: non-distended : General: Yes bladder normal to palpation Bimanual exam- vagina & uterus: bladder normal to palpation Neuro: Cranial nerves: Yes Equal, round and reactive pupils present Motor exam (neuro): 5/5 motor strength present throughout Sensory Exam: normal sensation Extrem: General: no edema Objective Data Vital Signs Vital Signs: Vital Signs - 24 hr 01/28/25 18:32 01/28/25 18:44 01/28/25 18:47 Temperature 36.4 C Pulse Rate 156 H 118 H Respiratory Rate 16 Blood Pressure 139/105 H Pulse Oximetry 97 96 Oxygen Delivery Room Air 01/28/25 19:06 01/28/25 20:27 01/28/25 20:31 Temperature Pulse Rate 116 H 99 101 H Respiratory Rate 18 19 17 Blood Pressure 143/91 H 140/83 130/81 Pulse Oximetry 95 96 93 Oxygen Delivery 01/28/25 20:46 01/28/25 21:01 01/28/25 21:46 Temperature Pulse Rate 104 H 103 H 134 H Respiratory Rate 22 H 21 H 19 Blood Pressure 120/86 133/74 131/107 H Pulse Oximetry 97 96 95 Oxygen Delivery 01/28/25 21:47 01/28/25 22:02 01/29/25 00:00 Temperature Pulse Rate 121 H 101 H 91 Respiratory Rate 25 H Blood Pressure 128/67 139/92 H 123/85 Pulse Oximetry 100 Oxygen Delivery 01/29/25 00:08 01/29/25 00:20 01/29/25 01:05 Temperature 37.1 C Pulse Rate 80 91 Respiratory Rate 28 H 15 Blood Pressure 115/65 123/85 Pulse Oximetry 95 98 Oxygen Delivery Room Air 01/29/25 02:00 01/29/25 02:00 01/29/25 04:00 Temperature Pulse Rate 92 92 Respiratory Rate Blood Pressure Pulse Oximetry Oxygen Delivery Room Air 01/29/25 04:00 01/29/25 04:00 01/29/25 04:00 Temperature 37.5 C Pulse Rate 100 108 H 100 Respiratory Rate 18 Blood Pressure 121/76 121/76 Pulse Oximetry 95 Oxygen Delivery 01/29/25 06:00 01/29/25 06:00 01/29/25 06:00 Temperature Pulse Rate 115 H 96 96 Respiratory Rate Blood Pressure 126/78 126/78 Pulse Oximetry 95 Oxygen Delivery 01/29/25 08:00 01/29/25 08:00 01/29/25 08:19 Temperature 37.3 C Pulse Rate 86 76 Respiratory Rate 19 Blood Pressure 124/72 Pulse Oximetry 98 Oxygen Delivery Room Air 01/29/25 10:00 01/29/25 10:00 01/29/25 11:35 Temperature 37.0 C Pulse Rate 93 75 Respiratory Rate 18 Blood Pressure 135/76 Pulse Oximetry 95 Oxygen Delivery Room Air 01/29/25 11:48 01/29/25 12:00 01/29/25 12:00 Temperature 37.1 C Pulse Rate 82 83 Respiratory Rate 16 Blood Pressure 134/76 Pulse Oximetry 96 Oxygen Delivery Room Air 01/29/25 12:22 Temperature Pulse Rate Respiratory Rate Blood Pressure Pulse Oximetry Oxygen Delivery Room Air Intake/Output Intake/Output: Intake & Output 01/26/25 01/27/25 01/28/25 01/29/25 23:59 23:59 23:59 23:59 Intake Total 2049 1069.8 Balance 2049 1069.8 Meds/Results Medications: Active Medications Generic Name Dose Route Start Last Admin Trade Name Freq PRN Reason Stop Dose Admin Albuterol 2 puff 01/29/25 05:20 Albuterol Sulfate (*Sp) Aerosol 1 Puff INHALATION Q4HRT PRN wheezing Cyanocobalamin 500 mcg 01/29/25 09:00 01/29/25 09:01 Cyanocobalamin 500 Mcg Tablet PO 500 mcg DAILY JUAN Administration Donepezil HCl 10 mg 01/29/25 09:00 01/29/25 09:01 Donepezil Hcl 10 Mg Tablet PO 10 mg DAILY JUAN Administration Enoxaparin Sodium 88 mg 01/28/25 21:00 01/29/25 09:02 Enoxaparin 100 Mg/Ml Syringe SUB-Q 88 mg Q12HR JUAN Administration Ceftriaxone Sodium 1 gm in 50 mls @ 100 mls/hr 01/29/25 21:00 Rocephin 1 Gm/Ns 50 Ml IVPB Q24H JUAN Diltiazem HCl 100 mg in 100 mls @ 5 mls/hr 01/28/25 21:50 01/29/25 06:00 Cardizem 100 Mg/100 Ml IV CONT 01/29/25 17:49 5 mg/hr .Q20H STA 5 mls/hr Titration Protocol 5 MG/HR Lamotrigine 25 mg 01/29/25 09:00 01/29/25 09:01 Lamotrigine 25 Mg Tablet PO 25 mg Q12HR JUAN Administration Levothyroxine Sodium 88 mcg 01/29/25 06:30 01/29/25 06:58 Levothyroxine Sodium 88 Mcg Tablet PO 88 mcg DAILY@0630 [facility] Administration Memantine 10 mg 01/29/25 21:00 Memantine 10 Mg Tablet PO QHS [facility] Memantine 5 mg 01/29/25 09:00 01/29/25 09:01 Memantine 5 Mg Tablet PO 5 mg QAM JUAN Administration Miscellaneous Information 1 each 01/29/25 00:01 Naltrexone 50 Mg Tablet Is Nonformulary, Can Pt Bring From Home? XX 02/28/25 00:00 CLARIFY JUAN Non-Formulary Medication 50 mg 01/29/25 05:15 Naltrexone PO 02/28/25 05:14 Q24H JUAN Perflutren Lipid Microsphere 0 ml 01/29/25 00:45 Perflutren Lipid Microspheres 1.5 Ml Vial Diluted To 10 Ml Total Volume IV PUSH 02/01/25 00:46 ONCE PRN adequate visualization Protocol Vitamin D 1,000 units 01/29/25 09:00 01/29/25 09:01 Cholecalciferol 1,000 Units Tablet PO 1,000 units DAILY JUAN Administration Radiology Results: ITS Impressions Chest X-Ray 01/28/25 19:14 IMPRESSION: Irregularity of the air column within the distal trachea, possibly secondary to positioning for which CT examination of the chest is recommended. Head CT 01/28/25 19:30 Impression: No acute intracranial hemorrhage or suspicious mass effect. Chest CT 01/28/25 21:19 IMPRESSION: Morphologically suspicious, pathologically enlarged lymph nodes within the mediastinum, as detailed above. This likely represents the abnormality seen on frontal view of the chest, performed 2 hours earlier. Labs Labs: Laboratory Results - last 24 hr 01/28/25 01/28/25 01/28/25 18:52 19:48 19:58 WBC 9.4 RBC 4.36 Hgb 11.0 L Hct 37.0 MCV 84.9 MCH 25.2 L MCHC 29.7 L RDW 14.2 Plt Count 328 MPV 9.6 Immature Gran % (Auto) 0.3 Neut % (Auto) 77.4 H Lymph % (Auto) 13.9 L [place] % (Auto) 7.1 Eos % (Auto) 0.8 Baso % (Auto) 0.5 Lymph # (Auto) 1.31 [place] # (Auto) 0.7 H Eos # (Auto) 0.1 Baso # (Auto) 0.1 Abs Immat Gran (auto) 0.03 Absolute Neuts (auto) 7.3 H Absolute Nucleated RBC 0.000 Band Neutrophils % Not Reportable Nucleated RBC % 0.0 Platelet Estimate Adequate Hypochromasia 1+ Ovalocytes 1+ Schistocytes None seen PT 14.0 INR 1.0 APTT 29.7 Sodium 137 Potassium 4.0 Chloride 104 Carbon Dioxide 24 Anion Gap 9 BUN 11 Creatinine 0.71 Estim Creat Clear Calc Not Reportable Estimated GFR > 60 Glucose 108 Calcium 9.4 Magnesium Total Bilirubin 0.4 AST 33 ALT 29 Alkaline Phosphatase 154 H Troponin I < 0.012 0.016 D Total Protein 7.0 Albumin 4.2 TSH (Reflex) 2.860 Free T4 Urine Color Yellow Urine Appearance Clear Urine pH 5.0 Ur Specific [place] 1.022 Urine Protein Negative Urine Glucose (UA) Negative Urine Ketones Trace H Ur Blood (Man) Negative Urine Nitrate Negative Urine Bilirubin Negative Urine Urobilinogen 1.0 Add Ur Microanalysis Reviewed Leukocyte Esterase Rfl 1+ H Urine RBC 0-2 Urine WBC 6-10 H Ur Squamous Epith Cells None seen Uric Acid Crystals Present H Urine Bacteria None seen Urine Casts 0-2 Influenza A (RT-PCR) Negative Influenza B (RT-PCR) Negative RSV (RT-PCR) Negative SARS-CoV-2 RNA (RT-PCR) Negative 01/29/25 04:57 WBC 6.5 RBC 3.71 L Hgb 9.6 L Hct 32.0 L MCV 86.3 MCH 25.9 L MCHC 30.0 L RDW 14.3 Plt Count 259 MPV 9.7 Immature Gran % (Auto) Neut % (Auto) Lymph % (Auto) [place] % (Auto) Eos % (Auto) Baso % (Auto) Lymph # (Auto) [place] # (Auto) Eos # (Auto) Baso # (Auto) Abs Immat Gran (auto) Absolute Neuts (auto) Absolute Nucleated RBC Band Neutrophils % Nucleated RBC % Platelet Estimate Hypochromasia Ovalocytes Schistocytes PT INR APTT Sodium 135 L Potassium 3.8 Chloride 108 H Carbon Dioxide 20 L Anion Gap 7 BUN 9 Creatinine 0.54 L Estim Creat Clear Calc 83 Estimated GFR > 60 Glucose 113 H Calcium 8.6 Magnesium 1.7 Total Bilirubin AST ALT Alkaline Phosphatase Troponin I Total Protein Albumin TSH (Reflex) Free T4 1.45 Urine Color Urine Appearance Urine pH Ur Specific [place] Urine Protein Urine Glucose (UA) Urine Ketones Ur Blood (Man) Urine Nitrate Urine Bilirubin Urine Urobilinogen Add Ur Microanalysis Leukocyte Esterase Rfl Urine RBC Urine WBC Ur Squamous Epith Cells Uric Acid Crystals Urine Bacteria Urine Casts Influenza A (RT-PCR) Influenza B (RT-PCR) RSV (RT-PCR) SARS-CoV-2 RNA (RT-PCR)
[2025-01-29] MEDS: dilTIAZem HCL CD 120 MG CAP.24HR PO (17:10)
[2025-01-29] MEDS: MEMANTINE 10 MG TABLET PO (21:50)
[2025-01-30] VITALS (14 sets, daily range): BP systolic 130–162; BP diastolic 71–91; PULSE 70–108; RESP 16–24; TEMP 36.5–37.4; O2SAT 95–100
[2025-01-30] MEDS: LEVOTHYROXINE SODIUM 88 MCG TABLET PO (06:34)
--- NOTE | 2025-01-30 08:39 | PM.IMPN ---
Progress Note: A&P Assessment and Plan (1) Acute UTI: Code(s): N39.0 - Urinary tract infection, site not specified Status: Acute Assessment and Plan: Continue with IV antibiotics monitor culture. (2) Atrial fibrillation, new onset: Code(s): I48.91 - Unspecified atrial fibrillation Status: Acute Assessment and Plan: Heart rate control. Continue current treatment. (3) Fall: Code(s): W19.XXXA - Unspecified fall, initial encounter Status: Acute Assessment and Plan: Xray both knees Physical therapy once patient was stable. Plan This is a 74-year-old female who presents to [facility] via EMS from her usual nursing facility in accompanied by her 2 children for the complaint of feeling spacey. The patient has a history of Alzheimer's dementia, hypothyroidism, hypertension. She is usually A&O times 2-3 but reports feeling spacey for many years. Upon evaluation in the ER she reports feeling just fine, this seems to be inaccurate as the son says she has a very poor historian and does not elucidate her symptoms very well. She was about her usual on the day of admission 01/28/2025 when she had an unwitnessed fall and apparently bumped to the front of her head. The patient has no recollection of the fall. She was fine afterwards but then in the community areas was noted to be not paying attention and doing odd things. The family was concerned. On arrival she was found to be in atrial fibrillation with RVR. WBC 9.4, hemoglobin 11, INR 1.0, BUN 11, serum creatinine 0.71, TSH 2.86, alkaline phosphatase mildly elevated at 154, troponin negative, urinalysis with trace ketones, 1+ leukocyte esterase, 6-10 wbc's, quad viral screen negative. Head CT does not demonstrate any acute abnormalities, chest CT demonstrates morphologically suspicious enlarged lymph nodes within the mediastinum. She was given 2 L normal saline bolus, diltiazem 20 mg IV total and then placed on diltiazem 10 milligrams/hour GTT. This improved her heart rate. She was also started on Lovenox 88 mg subQ q.12 hours for elevated chads Vasc score. Given ceftriaxone as well. ----- Atrial fibrillation with rapid ventricular rate -currently on diltiazem GTT at 10 milligrams/hour. She wavers between 90s and 130s. Start metoprolol 25 mg p.o. b.i.d. and wean GTT as tolerated. -continue telemetry in the IMU. -check 2D echocardiogram -continue Lovenox 1 mcg per kg subQ b.i.d. Acute UTI -patient has no symptomatology to indicate infection however she does have a abnormal UA and she is a very poor historian. Continue ceftriaxone and follow up urine culture. Fall at detention -unclear the etiology of this fall whether that be mechanical, seizure, syncope, arrhythmia. -continue telemetry, fall precautions, seizure precautions. Ambulate with assistance. -consult Neurology with her history of seizure. -PT OT evaluations Seizure disorder -restart [employer] antiepileptics Hypothyroidism -restart [employer] levothyroxine 88 mcg p.o. daily -check free T4, free T3 Hypertension -hold [employer] amlodipine for now. Metoprolol 25 mg p.o. b.i.d. started on 01/29/2025 Pathological mediastinal lymph nodes Alzheimer's dementia -restart [employer] memantine ----- Patient wishes to be DNR. Two children present on admission agreed. Saline lock IV. Telemetry. Fall precaution, seizure precaution Heart healthy diet. PT/OT, ambulate with assistance denies illicit drug use, alcohol, tobacco use Patient resides at detention Subjective Date/time seen: 01/30/25 08:39 Interval history: Patient was seen during the morning rounds today. Fell last night and now c/o having knee pain No sob or chest pain Mood stable Review of Systems Review of Systems: All systems reviewed & are unremarkable except as noted in HPI and below (HPI) Exam Const: General: comfortable and no acute distress Other: A&O x2. HENMT: Mouth: Yes moist mucous membranes Other: No obvious superficial trauma. No bleeding or trauma within the oral mucosa Eyes: Pupils: Equal, round and reactive pupils present Neck: Neck: supple Resp: Effort & Inspection: normal respiratory effort Auscultation: clear to auscultation bilaterally Cardio: Rate: regular rate and tachycardic Rhythm: abnormal rhythm Heart sounds: no gallops, no murmurs and no rubs GI: Inspection: non-distended : General: Yes bladder normal to palpation Bimanual exam- vagina & uterus: bladder normal to palpation Neuro: Cranial nerves: Yes Equal, round and reactive pupils present Motor exam (neuro): 5/5 motor strength present throughout Sensory Exam: normal sensation Extrem: General: no edema Other: ROM painful in both knees Objective Data Vital Signs Vital Signs: Vital Signs - 24 hr 01/29/25 10:00 01/29/25 10:00 01/29/25 10:00 Temperature 37.0 C Pulse Rate 93 75 75 Respiratory Rate 18 Blood Pressure 135/76 135/76 Pulse Oximetry 95 Oxygen Delivery 01/29/25 11:35 01/29/25 11:48 01/29/25 12:00 Temperature 37.1 C Pulse Rate 82 Respiratory Rate 16 Blood Pressure 134/76 Pulse Oximetry 96 Oxygen Delivery Room Air Room Air 01/29/25 12:00 01/29/25 12:00 01/29/25 12:22 Temperature Pulse Rate 83 82 Respiratory Rate Blood Pressure 134/76 Pulse Oximetry Oxygen Delivery Room Air 01/29/25 14:00 01/29/25 14:00 01/29/25 14:00 Temperature 36.9 C Pulse Rate 80 80 86 Respiratory Rate 18 Blood Pressure 127/72 127/72 Pulse Oximetry 100 Oxygen Delivery 01/29/25 16:00 01/29/25 16:00 01/29/25 16:00 Temperature 37.3 C Pulse Rate 94 74 Respiratory Rate 18 Blood Pressure 135/84 Pulse Oximetry 97 Oxygen Delivery Room Air 01/29/25 16:41 01/29/25 18:00 01/29/25 20:00 Temperature 36.5 C Pulse Rate 80 102 H 125 H Respiratory Rate 18 Blood Pressure 127/72 144/88 H Pulse Oximetry 99 Oxygen Delivery 01/29/25 20:00 01/29/25 21:35 01/29/25 22:00 Temperature Pulse Rate 131 H 96 Respiratory Rate Blood Pressure Pulse Oximetry Oxygen Delivery Room Air 01/29/25 23:59 01/30/25 00:00 01/30/25 00:15 Temperature 36.5 C Pulse Rate 83 70 Respiratory Rate 18 Blood Pressure 132/96 H Pulse Oximetry 100 Oxygen Delivery Room Air 01/30/25 02:00 01/30/25 04:00 01/30/25 04:00 Temperature 36.5 C Pulse Rate 80 80 105 H Respiratory Rate 18 Blood Pressure 162/85 H Pulse Oximetry 100 Oxygen Delivery 01/30/25 04:30 01/30/25 06:00 01/30/25 07:50 Temperature Pulse Rate 71 Respiratory Rate Blood Pressure Pulse Oximetry 96 Oxygen Delivery Room Air Room Air 01/30/25 08:10 Temperature 37.1 C Pulse Rate 93 Respiratory Rate 18 Blood Pressure 140/79 Pulse Oximetry 97 Oxygen Delivery Intake/Output Intake/Output: Intake & Output 01/27/25 01/28/25 01/29/25 01/30/25 23:59 23:59 23:59 23:59 Intake Total 2049 1810.0 250 Balance 2049 1810.0 250 Meds/Results Medications: Active Medications Generic Name Dose Route Start Last Admin Trade Name Freq PRN Reason Stop Dose Admin Albuterol 2 puff 01/29/25 05:20 Albuterol Sulfate (*Sp) Aerosol 1 Puff INHALATION Q4HRT PRN wheezing Cyanocobalamin 500 mcg 01/29/25 09:00 01/29/25 09:01 Cyanocobalamin 500 Mcg Tablet PO 500 mcg DAILY JUAN Administration Diltiazem HCl 120 mg 01/29/25 17:00 01/29/25 17:10 Diltiazem Hcl Cd 120 Mg Cap.24hr PO 120 mg QAM JUAN Administration Donepezil HCl 10 mg 01/29/25 09:00 01/29/25 09:01 Donepezil Hcl 10 Mg Tablet PO 10 mg DAILY JUAN Administration Enoxaparin Sodium 88 mg 01/28/25 21:00 01/29/25 21:39 Enoxaparin 100 Mg/Ml Syringe SUB-Q 88 mg Q12HR JUAN Administration Ceftriaxone Sodium 1 gm in 50 mls @ 100 mls/hr 01/29/25 21:00 01/29/25 21:45 Rocephin 1 Gm/Ns 50 Ml IVPB 100 mls/hr Q24H JUAN Administration Lamotrigine 25 mg 01/29/25 09:00 01/29/25 21:40 Lamotrigine 25 Mg Tablet PO 25 mg Q12HR JUAN Administration Levothyroxine Sodium 88 mcg 01/29/25 06:30 01/30/25 06:34 Levothyroxine Sodium 88 Mcg Tablet PO 88 mcg DAILY@0630 JUAN Administration Memantine 10 mg 01/29/25 21:00 01/29/25 21:50 Memantine 10 Mg Tablet PO 10 mg QHS JUAN Administration Memantine 5 mg 01/29/25 09:00 01/29/25 09:01 Memantine 5 Mg Tablet PO 5 mg QAM JUAN Administration Miscellaneous Information 1 each 01/29/25 00:01 Naltrexone 50 Mg Tablet Is Nonformulary, Can Pt Bring From Home? XX 02/28/25 00:00 CLARIFY JUAN Non-Formulary Medication 50 mg 01/29/25 05:15 Naltrexone PO 02/28/25 05:14 Q24H JUAN Perflutren Lipid Microsphere 0 ml 01/29/25 00:45 Perflutren Lipid Microspheres 1.5 Ml Vial Diluted To 10 Ml Total Volume IV PUSH 02/01/25 00:46 ONCE PRN adequate visualization Protocol Vitamin D 1,000 units 01/29/25 09:00 01/29/25 09:01 Cholecalciferol 1,000 Units Tablet PO 1,000 units DAILY JUAN Administration Radiology Results: ITS Impressions Chest X-Ray 01/28/25 19:14 IMPRESSION: Irregularity of the air column within the distal trachea, possibly secondary to positioning for which CT examination of the chest is recommended. Head CT 01/28/25 19:30 Impression: No acute intracranial hemorrhage or suspicious mass effect. Chest CT 01/28/25 21:19 IMPRESSION: Morphologically suspicious, pathologically enlarged lymph nodes within the mediastinum, as detailed above. This likely represents the abnormality seen on frontal view of the chest, performed 2 hours earlier.
[2025-01-30] MEDS: CHOLECALCIFEROL 1,000 UNITS TABLET 1000 UNITS PO (09:08)
[2025-01-30] MEDS: ENOXAPARIN 100 MG/ML SYRINGE 88 MG SUB-Q ×2 (09:08→20:28)
[2025-01-30] MEDS: lamoTRIgine 25 MG TABLET PO ×2 (09:08→20:28)
[2025-01-30] MEDS: DONEPEZIL HCL 10 MG TABLET PO (09:08)
[2025-01-30] MEDS: CYANOCOBALAMIN 500 MCG TABLET PO (09:08)
[2025-01-30] MEDS: MEMANTINE 5 MG TABLET PO (09:08)
[2025-01-30] MEDS: dilTIAZem HCL CD 120 MG CAP.24HR PO (11:59)
--- NOTE | 2025-01-30 16:56 | P.CONNEU_ITS ---
Assessment and Plan Assessment and plan (1) Accidental fall: Code(s): W19.XXXA - Unspecified fall, initial encounter Status: Acute (2) Atrial fibrillation, new onset: Code(s): I48.91 - Unspecified atrial fibrillation Status: Acute (3) Dementia of the Alzheimer's type: Code(s): G30.9 - Alzheimer's disease, unspecified; F02.80 - Dementia in other diseases classified elsewhere, unspecified severity, without behavioral disturbance, psychotic disturbance, mood disturbance, and anxiety Status: Acute Plan according to the records her children thought that she was looking spacey and that could have been the reason why she was brought in here. There is also the issue of metabolic problem such as urinary tract infection and acute or new onset atrial fibrillation all these factors can also play into it. And having addressed. She is on Aricept and Namenda. The dose of Namenda be gradually increased to 10 mg twice a day but I shall leave this up to you. CT scan of brain was performed on admission which did not show any significant abnormalities. Consult date: 01/30/25 HPI: Kriss Worley is a 74 year old female With history of dementia Alzheimer's type has had a fall and has bruises on her legs and also around her right eye. She came from assisted living. 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 She does not think that she had a passing out spell. This time she is able to walk. Review records it was noted that her family members are step children who live around here. She had a worsening year 1999. 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 She tolerated [employer]. Her long-term memory is very good but she states that she cannot remember things that happened recently. Sometimes he feels spacey. There is no history of seizures. I noted that she is already on memantine and Aricept. She is able to walk to the bathroom and states that she has good balance. She is in fact surprise while my seeing her. Review of Systems 2 Review of Systems: All systems reviewed & are unremarkable except as noted in HPI and below [facility] Past Medical History Medical History (Updated 01/30/25 @ 17:01 by Javier Gomez MD) Dementia of the Alzheimer's type Accidental fall Family History Family History Mother Hypertension Alzheimer dementia Sibling Hypertension Social History Social History Smoking status: Never smoker Alcohol intake: current Drinks per week: 1 Substance use: never Substance use type: does not use Do You Feel Safe in your Home?: Yes Lack of Transportation: No Lack of Food: Never True Current Housing: I Have Housing Concerned About Future Housing: No Difficulty Paying Gas/Electric Bills: No Difficulty Paying for Meds: No Currently Unemployed: No Education: Bachelor's Degree Difficulty w/ Childcare or Family Care: No Spiritual care concerns: No Meds Home Medications and Allergies Home Medications ?Medication ?Instructions ?Recorded ?Confirmed ?Type amlodipine 5 mg tablet 5 mg PO DAILY 05/03/24 01/29/25 History aspirin 81 mg chewable tablet 81 mg PO DAILY 05/03/24 01/29/25 History cyanocobalamin (vitamin B-12) 500 500 mcg PO DAILY 05/03/24 01/29/25 History mcg tablet donepezil 10 mg tablet 10 mg PO DAILY 05/03/24 01/29/25 History levothyroxine 88 mcg tablet 88 mcg PO DAILY 05/03/24 01/29/25 History memantine 10 mg tablet 10 mg PO QHS 05/03/24 01/29/25 History albuterol 90 mcg/actuation aerosol 180 mcg inhalation Q4H PRN wheezing 01/29/25 01/29/25 History inhaler cholecalciferol (vitamin D3) 25 25 mcg PO DAILY 01/29/25 01/29/25 History mcg (1,000 unit) tablet lamotrigine 25 mg tablet 25 mg PO Q12H 01/29/25 01/29/25 History melatonin 10 mg capsule 5 mg PO DAILY 01/29/25 01/29/25 History memantine 10 mg tablet (Namenda) 5 mg PO QAM Dementia 01/29/25 01/29/25 History naltrexone 50 mg tablet 50 mg PO Q24H 01/29/25 01/29/25 History Allergies Allergy/AdvReac Type Severity Reaction Status Date / Time amoxicillin Allergy Unknown Verified 01/28/25 18:24 codeine Allergy Dizziness Verified 01/28/25 18:24 lithium Allergy kidney Verified 01/28/25 18:24 failure morphine Allergy Vomiting Verified 01/28/25 18:24 olanzapine Allergy Confusion Verified 01/28/25 18:24 Penicillins Allergy Hives Verified 01/28/25 18:24 Vital Signs Vital Signs - 24 hr 01/29/25 18:00 01/29/25 20:00 01/29/25 20:00 Temperature 97.7 F Pulse Rate 102 H 125 H 131 H Respiratory Rate 18 Blood Pressure 144/88 H Pulse Oximetry 99 Oxygen Delivery 01/29/25 21:35 01/29/25 22:00 01/29/25 23:59 Temperature 97.7 F Pulse Rate 96 83 Respiratory Rate 18 Blood Pressure 132/96 H Pulse Oximetry 100 Oxygen Delivery Room Air 01/30/25 00:00 01/30/25 00:15 01/30/25 02:00 Temperature Pulse Rate 70 80 Respiratory Rate Blood Pressure Pulse Oximetry Oxygen Delivery Room Air 01/30/25 04:00 01/30/25 04:00 01/30/25 04:30 Temperature 97.7 F Pulse Rate 80 105 H Respiratory Rate 18 Blood Pressure 162/85 H Pulse Oximetry 100 Oxygen Delivery Room Air 01/30/25 06:00 01/30/25 07:50 01/30/25 08:00 Temperature Pulse Rate 71 108 H Respiratory Rate Blood Pressure Pulse Oximetry 96 Oxygen Delivery Room Air 01/30/25 08:10 01/30/25 10:00 01/30/25 12:00 Temperature 98.8 F Pulse Rate 93 96 107 H Respiratory Rate 18 Blood Pressure 140/79 Pulse Oximetry 97 Oxygen Delivery 01/30/25 12:00 01/30/25 14:00 01/30/25 14:13 Temperature 99.0 F Pulse Rate 84 81 Respiratory Rate 16 Blood Pressure 146/73 H Pulse Oximetry 97 Oxygen Delivery Room Air 01/30/25 16:00 01/30/25 16:00 Temperature 98.6 F Pulse Rate 94 89 Respiratory Rate 24 H Blood Pressure 145/91 H Pulse Oximetry 97 Oxygen Delivery Exam 2 Narrative: Fully conscious alert oriented to self time place and person. She is very well articulate and attentive. She shows me bruises on her both lower limbs above and below her knee I noted some bruising around her right eye. Otherwise exam head and neck was unremarkable. Cranial nerves annual testing intact. There is no facial asymmetry. Tongue was midline. Other cranial normal limits. Motor system shows normal power and tone in both upper and lower limbs. No involuntary movements are seen. Results Labs 01/29/25 04:57 01/29/25 04:57
[2025-01-30 18:42] LABS: Vitamin D 25 Hydroxy 40.9 ng/mL
[2025-01-30 19:33] LABS: Vitamin B12 > 1000.0 pg/mL (239-931)
[2025-01-30] MEDS: MEMANTINE 10 MG TABLET PO (20:28)
[2025-01-31] VITALS (10 sets, daily range): BP systolic 136–143; BP diastolic 79–94; PULSE 65–128; RESP 16–20; TEMP 36.5–37.3; O2SAT 94–97
[2025-01-31 04:25] LABS: Basophils Percent Auto 0.6 % (0.2-1.2); Eosinophils Absolute Auto 0.1 K/mm3 (0-0.3); Eosinophils Percent Auto 1.6 % (0-4.4); Hematocrit 34.4 % (37.0-47.0); Hemoglobin 10.4 g/dL (12.0-15.0); Immature Granulocyte Absolute 0.02 K/mm3 (0.00-0.031); Immature Granulocyte Percent A 0.3 % (0-0.5); Lymphocytes Absolute Auto 1.54 K/mm3 (0.9-3.2); Lymphocytes Percent Auto 22.4 % (18.3-44.2); Mean Corpuscular HGB Conc 30.2 g/dl (32-36); Mean Corpuscular Hemoglobin 25.5 pg (26-34); Mean Corpuscular Volume 84.3 fl (80-100); Mean Platelet Volume 9.8 fl (7.4-10.4); Monocytes Absolute Auto 0.7 K/mm3 (0.1-0.6); Monocytes Percent Auto 9.5 % (2.6-8.5); Neutrophils Absolute Auto 4.5 K/mm3 (1.3-6.7); Neutrophils Percent Auto 65.6 % (45.5-73.1); Platelet Count Result 265 k/mm3 (150-375); Red Blood Count 4.08 M/mm3 (4.2-5.4); Red Cell Distribution Width 14.4 % (11.5-14.5); White Blood Count 6.9 K/mm3 (4.5-10.0)
[2025-01-31] MEDS: LEVOTHYROXINE SODIUM 88 MCG TABLET PO (06:30)
[2025-01-31] MEDS: ENOXAPARIN 100 MG/ML SYRINGE 88 MG SUB-Q ×2 (09:20→20:30)
[2025-01-31] MEDS: CHOLECALCIFEROL 1,000 UNITS TABLET 1000 UNITS PO (09:20)
[2025-01-31] MEDS: DONEPEZIL HCL 10 MG TABLET PO (09:20)
[2025-01-31] MEDS: CYANOCOBALAMIN 500 MCG TABLET PO (09:20)
[2025-01-31] MEDS: lamoTRIgine 25 MG TABLET PO ×2 (09:20→20:26)
[2025-01-31] MEDS: dilTIAZem HCL CD 120 MG CAP.24HR PO (09:20)
[2025-01-31] MEDS: MEMANTINE 5 MG TABLET PO (09:20)
--- NOTE | 2025-01-31 09:30 | P.PNIM_ITS ---
Progress Note: A&P Assessment and Plan (1) Acute UTI: Code(s): N39.0 - Urinary tract infection, site not specified Status: Acute Assessment and Plan: Continue with IV antibiotics monitor culture. (2) Atrial fibrillation, new onset: Code(s): I48.91 - Unspecified atrial fibrillation Status: Acute Assessment and Plan: Heart rate control. Continue current treatment. (3) Fall: Code(s): W19.XXXA - Unspecified fall, initial encounter Status: Acute Assessment and Plan: X ray both knees negative for acute injury Physical therapy once patient was stable. Plan This is a 74-year-old female who presents to [facility] via EMS from her usual nursing facility in accompanied by her 2 children for the complaint of feeling spacey. The patient has a history of Alzheimer's dementia, hypothyroidism, hypertension. She is usually A&O times 2-3 but reports feeling spacey for many years. Upon evaluation in the ER she reports feeling just fine, this seems to be inaccurate as the son says she has a very poor historian and does not elucidate her symptoms very well. She was about her usual on the day of admission 01/28/2025 when she had an unwitnessed fall and apparently bumped to the front of her head. The patient has no recollection of the fall. She was fine afterwards but then in the community areas was noted to be not paying attention and doing odd things. The family was concerned. On arrival she was found to be in atrial fibrillation with RVR. WBC 9.4, hemoglobin 11, INR 1.0, BUN 11, serum creatinine 0.71, TSH 2.86, alkaline phosphatase mildly elevated at 154, troponin negative, urinalysis with trace ketones, 1+ leukocyte esterase, 6-10 wbc's, quad viral screen negative. Head CT does not demonstrate any acute abnormalities, chest CT demonstrates morphologically suspicious enlarged lymph nodes within the mediastinum. She was given 2 L normal saline bolus, diltiazem 20 mg IV total and then placed on diltiazem 10 milligrams/hour GTT. This improved her heart rate. She was also started on Lovenox 88 mg subQ q.12 hours for elevated chads Vasc score. Given ceftriaxone as well. ----- Atrial fibrillation with rapid ventricular rate -currently on diltiazem GTT at 10 milligrams/hour. She wavers between 90s and 130s. Start metoprolol 25 mg p.o. b.i.d. and wean GTT as tolerated. -continue telemetry in the IMU. -check 2D echocardiogram -continue Lovenox 1 mcg per kg subQ b.i.d. Acute UTI -patient has no symptomatology to indicate infection however she does have a abnormal UA and she is a very poor historian. Continue ceftriaxone and follow up urine culture. [facility] -unclear the etiology of this fall whether that be mechanical, seizure, syncope, arrhythmia. -continue telemetry, fall precautions, seizure precautions. Ambulate with assistance. -consult Neurology with her history of seizure. -PT OT evaluations Seizure disorder -restart [employer] antiepileptics Hypothyroidism -restart [employer] levothyroxine 88 mcg p.o. daily -check free T4, free T3 Hypertension -hold [employer] amlodipine for now. Metoprolol 25 mg p.o. b.i.d. started on 01/29/2025 Pathological mediastinal lymph nodes Alzheimer's dementia -restart [employer] memantine ----- Patient wishes to be DNR. Two children present on admission agreed. Saline lock IV. Telemetry. Fall precaution, seizure precaution Heart healthy diet. PT/OT, ambulate with assistance denies illicit drug use, alcohol, tobacco use Patient [facility] Subjective Date/time seen: 01/31/25 09:30 Interval history: Patient was seen during the morning rounds today. Noo new overnight complaints Pain controlled No sob or chest pain Mood stable Review of Systems Review of Systems: All systems reviewed & are unremarkable except as noted in HPI and below (HPI) Exam Const: General: comfortable and no acute distress Other: A&O x2. HENMT: Mouth: Yes moist mucous membranes Other: No obvious superficial trauma. No bleeding or trauma within the oral mucosa Eyes: Pupils: Equal, round and reactive pupils present Neck: Neck: supple Resp: Effort & Inspection: normal respiratory effort Auscultation: clear to auscultation bilaterally Cardio: Rate: regular rate and tachycardic Rhythm: abnormal rhythm Heart sounds: no gallops, no murmurs and no rubs GI: Inspection: non-distended : General: Yes bladder normal to palpation Bimanual exam- vagina & uterus: bladder normal to palpation Neuro: Cranial nerves: Yes Equal, round and reactive pupils present Motor exam (neuro): 5/5 motor strength present throughout Sensory Exam: normal sensation Extrem: General: no edema Other: ROM painful in both knees Objective Data Vital Signs Vital Signs: Vital Signs - 24 hr 01/30/25 10:00 01/30/25 12:00 01/30/25 12:00 Temperature 37.2 C Pulse Rate 96 107 H 84 Respiratory Rate 16 Blood Pressure 146/73 H Pulse Oximetry 97 Oxygen Delivery 01/30/25 14:00 01/30/25 14:13 01/30/25 16:00 Temperature Pulse Rate 81 94 Respiratory Rate Blood Pressure Pulse Oximetry Oxygen Delivery Room Air 01/30/25 16:00 01/30/25 17:57 01/30/25 20:00 Temperature 37.0 C 37.4 C Pulse Rate 89 103 H 95 Respiratory Rate 24 H 18 Blood Pressure 145/91 H 130/71 Pulse Oximetry 97 95 Oxygen Delivery 01/30/25 20:00 01/30/25 20:25 01/30/25 22:00 Temperature Pulse Rate 94 101 H Respiratory Rate Blood Pressure Pulse Oximetry Oxygen Delivery Room Air 01/30/25 23:55 01/31/25 00:00 01/31/25 00:00 Temperature 37.1 C Pulse Rate 94 88 Respiratory Rate 16 Blood Pressure 138/85 Pulse Oximetry 94 Oxygen Delivery Room Air 01/31/25 02:00 01/31/25 04:00 01/31/25 04:00 Temperature 36.7 C Pulse Rate 75 91 77 Respiratory Rate 18 Blood Pressure 136/94 H Pulse Oximetry 96 Oxygen Delivery 01/31/25 04:30 01/31/25 06:00 01/31/25 07:34 Temperature 37.3 C Pulse Rate 77 79 Respiratory Rate 18 Blood Pressure 143/79 H Pulse Oximetry 96 Oxygen Delivery Room Air Intake/Output Intake/Output: Intake & Output 01/28/25 01/29/25 01/30/25 01/31/25 23:59 23:59 23:59 23:59 Intake Total 2049 186.0 780 500 Output Total 800 Balance 2049 186.0 780 -300 Meds/Results Medications: Active Medications Generic Name Dose Route Start Last Admin Trade Name Freq PRN Reason Stop Dose Admin Albuterol 2 puff 01/29/25 05:20 Albuterol Sulfate (*Sp) Aerosol 1 Puff INHALATION Q4HRT PRN wheezing Cyanocobalamin 500 mcg 01/29/25 09:00 01/31/25 09:20 Cyanocobalamin 500 Mcg Tablet PO 500 mcg DAILY JUAN Administration Diltiazem HCl 120 mg 01/29/25 17:00 01/31/25 09:20 Diltiazem Hcl Cd 120 Mg Cap.24hr PO 120 mg QAM JUAN Administration Donepezil HCl 10 mg 01/29/25 09:00 01/31/25 09:20 Donepezil Hcl 10 Mg Tablet PO 10 mg DAILY JUAN Administration Enoxaparin Sodium 88 mg 01/28/25 21:00 01/31/25 09:20 Enoxaparin 100 Mg/Ml Syringe SUB-Q 88 mg Q12HR JUAN Administration Ceftriaxone Sodium 1 gm in 50 mls @ 100 mls/hr 01/29/25 21:00 01/30/25 21:04 Rocephin 1 Gm/Ns 50 Ml IVPB Infused Q24H JUAN Infusion Lamotrigine 25 mg 01/29/25 09:00 01/31/25 09:20 Lamotrigine 25 Mg Tablet PO 25 mg Q12HR JUAN Administration Levothyroxine Sodium 88 mcg 01/29/25 06:30 01/31/25 06:30 Levothyroxine Sodium 88 Mcg Tablet PO 88 mcg DAILY@0630 JUAN Administration Memantine 10 mg 01/29/25 21:00 01/30/25 20:28 Memantine 10 Mg Tablet PO 10 mg QHS JUAN Administration Memantine 5 mg 01/29/25 09:00 01/31/25 09:20 Memantine 5 Mg Tablet PO 5 mg QAM JUAN Administration Perflutren Lipid Microsphere 0 ml 01/29/25 00:45 Perflutren Lipid Microspheres 1.5 Ml Vial Diluted To 10 Ml Total Volume IV PUSH 02/01/25 00:46 ONCE PRN adequate visualization Protocol Vitamin D 1,000 units 01/29/25 09:00 01/31/25 09:20 Cholecalciferol 1,000 Units Tablet PO 1,000 units DAILY JUAN Administration Radiology Results: ITS Impressions Chest X-Ray 01/28/25 19:14 IMPRESSION: Irregularity of the air column within the distal trachea, possibly secondary to positioning for which CT examination of the chest is recommended. Head CT 01/28/25 19:30 Impression: No acute intracranial hemorrhage or suspicious mass effect. Chest CT 01/28/25 21:19 IMPRESSION: Morphologically suspicious, pathologically enlarged lymph nodes within the mediastinum, as detailed above. This likely represents the abnormality seen on frontal view of the chest, performed 2 hours earlier. Knee X-Ray 01/30/25 09:19 IMPRESSION: 1. No joint effusion or acute osseous abnormality at either knee. 2. 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 Knee X-Ray 01/30/25 09:19 IMPRESSION: 1. No joint effusion or acute osseous abnormality at either knee. 2. 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 Labs Labs: Laboratory Results - last 24 hr 01/30/25 01/31/25 18:01 04:10 WBC 6.9 RBC 4.08 L Hgb 10.4 L Hct 34.4 L MCV 84.3 MCH 25.5 L MCHC 30.2 L RDW 14.4 Plt Count 265 MPV 9.8 Immature Gran % (Auto) 0.3 Neut % (Auto) 65.6 Lymph % (Auto) 22.4 Schleicher % (Auto) 9.5 H Eos % (Auto) 1.6 Baso % (Auto) 0.6 Lymph # (Auto) 1.54 Schleicher # (Auto) 0.7 H Eos # (Auto) 0.1 Baso # (Auto) 0.0 Abs Immat Gran (auto) 0.02 Absolute Neuts (auto) 4.5 Absolute Nucleated RBC 0.000 Nucleated RBC % 0.0 Vitamin B12 > 1000.0 H Vitamin D 25-Hydroxy 40.9 Folate 8.0
--- NOTE | 2025-01-31 12:37 | PC.NURSE ---
This patient, Kriss Worley, was transferred to [[facility]] on 01/31/25 at 1237. Personal belongings sent with patient. Report given to [VENESSA Chavez @ 1230 ]. Appropriate documentation sent with patient.
--- NOTE | 2025-01-31 14:06 | PC.NURSE ---
This patient, Kriss Worley, was received from [ IMU] on 01/31/25 at 1407. Patient/family oriented to unit policies and routines
[2025-01-31] MEDS: MEMANTINE 10 MG TABLET PO (20:27)
[2025-02-01] VITALS (7 sets, daily range): BP systolic 124–137; BP diastolic 70–79; PULSE 60–130; RESP 18–20; TEMP 36.5–36.8; O2SAT 92–98
[2025-02-01] MEDS: LEVOTHYROXINE SODIUM 88 MCG TABLET PO (06:08)
[2025-02-01] MEDS: MEMANTINE 5 MG TABLET PO (09:07)
[2025-02-01] MEDS: dilTIAZem HCL CD 120 MG CAP.24HR PO (09:07)
[2025-02-01] MEDS: DONEPEZIL HCL 10 MG TABLET PO (09:07)
[2025-02-01] MEDS: lamoTRIgine 25 MG TABLET PO ×2 (09:08→20:05)
[2025-02-01] MEDS: ENOXAPARIN 100 MG/ML SYRINGE 88 MG SUB-Q (09:08)
[2025-02-01] MEDS: CHOLECALCIFEROL 1,000 UNITS TABLET 1000 UNITS PO (09:08)
[2025-02-01] MEDS: CYANOCOBALAMIN 500 MCG TABLET PO (09:08)
--- NOTE | 2025-02-01 11:57 | P.PNIM_ITS ---
Progress Note: A&P Assessment and Plan (1) Acute UTI: Code(s): N39.0 - Urinary tract infection, site not specified Status: Acute Assessment and Plan: Continue with IV antibiotics monitor culture. (2) Atrial fibrillation, new onset: Code(s): I48.91 - Unspecified atrial fibrillation Status: Acute Assessment and Plan: Heart rate control. Continue current treatment. (3) Fall: Code(s): W19.XXXA - Unspecified fall, initial encounter Status: Acute Assessment and Plan: X ray both knees negative for acute injury Physical therapy once patient was stable. Plan This is a 74-year-old female who presents to [facility] via EMS from her usual nursing facility in accompanied by her 2 children for the complaint of feeling spacey. The patient has a history of Alzheimer's dementia, hypothyroidism, hypertension. She is usually A&O times 2-3 but reports feeling spacey for many years. Upon evaluation in the ER she reports feeling just fine, this seems to be inaccurate as the son says she has a very poor historian and does not elucidate her symptoms very well. She was about her usual on the day of admission 01/28/2025 when she had an unwitnessed fall and apparently bumped to the front of her head. The patient has no recollection of the fall. She was fine afterwards but then in the community areas was noted to be not paying attention and doing odd things. The family was concerned. On arrival she was found to be in atrial fibrillation with RVR. WBC 9.4, hemoglobin 11, INR 1.0, BUN 11, serum creatinine 0.71, TSH 2.86, alkaline phosphatase mildly elevated at 154, troponin negative, urinalysis with trace ketones, 1+ leukocyte esterase, 6-10 wbc's, quad viral screen negative. Head CT does not demonstrate any acute abnormalities, chest CT demonstrates morphologically suspicious enlarged lymph nodes within the mediastinum. She was given 2 L normal saline bolus, diltiazem 20 mg IV total and then placed on diltiazem 10 milligrams/hour GTT. This improved her heart rate. She was also started on Lovenox 88 mg subQ q.12 hours for elevated chads Vasc score. Given ceftriaxone as well. Atrial fibrillation with rapid ventricular rate received on diltiazem GTT at 10 milligrams/hour. She wavers between 90s and 130s. Start metoprolol 25 mg p.o. b.i.d. and wean GTT as tolerated. -continue telemetry in the IMU. -check 2D echocardiogram . Left ventricular systolic function is normal, estimated at 55-60%. The left ventricular diastolic function is abnormal. 5. E/e' 11 is mildly elevated. 6. Atrial fibrillation. 7. Left atrial chamber dimension is moderately enlarged. 8. There is mild aortic valve sclerosis. 9. The mitral valve has mildly calcified annulus. 10. There is moderate mitral valve regurgitation. 11. There is mild tricuspid valve regurgitation. 12. Mild pulmonary hypertension, estimated pulmonary arterial systolic pressure is 45 mmHg. 13. Dilated inferior vena cava with >50% collapse upon inspiration consistent with elevated right atrial pressure, 10 mmHg. Currently patient is on Cardizem 120 mg daily p.o., and Lovenox 1 mcg per kg subQ b.i.d. Patient has AFib RVR on arrival Consult cardiology for evaluation and treatment regarding rate control versus rhythm control and blood thinner Acute UTI -patient has no symptomatology to indicate infection she does have a abnormal UA and she is a very poor historian. Continue ceftriaxone follow up urine culture no growth Fall at [facility] -unclear the etiology of this fall whether that be mechanical, seizure, syncope, arrhythmia. -continue telemetry, fall precautions, seizure precautions. Ambulate with assistance. -consult Neurology with her history of seizure. -PT OT evaluations Seizure disorder -restart [employer] antiepileptics Consulted neurologist Hypothyroidism -restart [employer] levothyroxine 88 mcg p.o. daily -check free T4, free T3 Hypertension -hold [employer] amlodipine for now. Metoprolol 25 mg p.o. b.i.d. started on 01/29/2025 Pathological mediastinal lymph nodes Alzheimer's dementia -restart [employer] memantine ----- Patient wishes to be DNR. Two children present on admission agreed. Saline lock IV. Telemetry. Fall precaution, seizure precaution Heart healthy diet. PT/OT, ambulate with assistance denies illicit drug use, alcohol, tobacco use Patient resides [facility] Subjective Date/time seen: 02/01/25 11:57 Interval history: I saw examined patient today, patient is alert oriented, no focal weakness, patient also denies chest pain shortness of breath or palpitation Exam Narrative: GENERAL: Pleasant, in no acute distress. Well-nourished. - EYES: EOMI. Anicteric. - HENT: Moist mucous membranes. - LUNGS: Clear to auscultation bilateral ly, no wheezing, rhonchi, or rales. - CARDIOVASCULAR: Irregular irregular r hythm No murmur. No JVD. - ABDOMEN: Soft, non-tender and non-dist ended. No palpable masses. - EXTREMITIES: No edema. Peripheral puls es 2+. Non-tender. - NEUROLOGIC: No focal neurological defi cits. CN II-XII grossly intact. - PSYCHIATRIC: Awake, Alert and oriented x 3. Appropriate mood and affect. - SKIN: No rashes or lesions. Warm. - LYMPH: No cervical lymphadenopathy. Objective Data Vital Signs Vital Signs: Vital Signs - 24 hr 01/31/25 15:56 01/31/25 20:15 01/31/25 20:25 Temperature 98.5 F 97.7 F Pulse Rate 65 98 98 Respiratory Rate 18 20 20 Blood Pressure 136/83 141/89 H Pulse Oximetry 97 94 94 Oxygen Delivery Room Air 02/01/25 04:18 02/01/25 09:05 Temperature 97.7 F Pulse Rate 64 Respiratory Rate 20 Blood Pressure 137/79 Pulse Oximetry 95 Oxygen Delivery Room Air Intake/Output Intake/Output: Intake & Output 01/29/25 01/30/25 01/31/25 02/01/25 23:59 23:59 23:59 23:59 Intake Total 1860.0 780 1890 870 Output Total 800 Balance 1860.0 780 1090 870 Meds/Results Medications: Active Medications Generic Name Dose Route Start Last Admin Trade Name Freq PRN Reason Stop Dose Admin Albuterol 2 puff 01/29/25 05:20 Albuterol Sulfate (*Sp) Aerosol 1 Puff INHALATION Q4HRT PRN wheezing Cyanocobalamin 500 mcg 01/29/25 09:00 02/01/25 09:08 Cyanocobalamin 500 Mcg Tablet PO 500 mcg DAILY JUAN Administration Diltiazem HCl 120 mg 01/29/25 17:00 02/01/25 09:07 Diltiazem Hcl Cd 120 Mg Cap.24hr PO 120 mg QAM JUAN Administration Donepezil HCl 10 mg 01/29/25 09:00 02/01/25 09:07 Donepezil Hcl 10 Mg Tablet PO 10 mg DAILY JUAN Administration Enoxaparin Sodium 88 mg 01/28/25 21:00 02/01/25 09:08 Enoxaparin 100 Mg/Ml Syringe SUB-Q 88 mg Q12HR JUAN Administration Ceftriaxone Sodium 1 gm in 50 mls @ 100 mls/hr 01/29/25 21:00 01/31/25 20:30 Rocephin 1 Gm/Ns 50 Ml IVPB 02/01/25 23:59 100 mls/hr Q24H JUAN Administration Lamotrigine 25 mg 01/29/25 09:00 02/01/25 09:08 Lamotrigine 25 Mg Tablet PO 25 mg Q12HR JUAN Administration Levothyroxine Sodium 88 mcg 01/29/25 06:30 02/01/25 06:08 Levothyroxine Sodium 88 Mcg Tablet PO 88 mcg DAILY@0630 JUAN Administration Memantine 10 mg 01/29/25 21:00 01/31/25 20:27 Memantine 10 Mg Tablet PO 10 mg QHS JUAN Administration Memantine 5 mg 01/29/25 09:00 02/01/25 09:07 Memantine 5 Mg Tablet PO 5 mg QAM JUAN Administration Vitamin D 1,000 units 01/29/25 09:00 02/01/25 09:08 Cholecalciferol 1,000 Units Tablet PO 1,000 units DAILY JUAN Administration Radiology Results: ITS Impressions Chest X-Ray 01/28/25 19:14 IMPRESSION: Irregularity of the air column within the distal trachea, possibly secondary to positioning for which CT examination of the chest is recommended. Head CT 01/28/25 19:30 Impression: No acute intracranial hemorrhage or suspicious mass effect. Chest CT 01/28/25 21:19 IMPRESSION: Morphologically suspicious, pathologically enlarged lymph nodes within the mediastinum, as detailed above. This likely represents the abnormality seen on frontal view of the chest, performed 2 hours earlier. Knee X-Ray 01/30/25 09:19 IMPRESSION: 1. No joint effusion or acute osseous abnormality at either knee. 2. 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 Knee X-Ray 01/30/25 09:19
[2025-02-01 13:29] LABS: Homocysteine 13.1 umol/L (<10.4)
--- NOTE | 2025-02-01 13:38 | P.CONCA_ITS ---
Assessment and Plan Assessment and plan (1) Atrial fibrillation, new onset: Code(s): I48.91 - Unspecified atrial fibrillation Status: Acute Assessment and Plan: This is not a new diagnosis. There is an EKG from November of this year demonstrating atrial fibrillation. * Adequate rate control with diltiazem 120mg daily. Will therefore continue with rate control strategy. * On therapeutic dose lovenox, will shift to eliquis for CVA risk reduction (CHADs2 Vasc score at least 2 for age, female gender). * Echo shows normal LV function with moderate MR, mild pHTN * No other cardiac workup indicated or recommended at this time * Will arrange for outpatient follow up in our office. Cardiology will sign off please call with questions. History of Present Illness History of Present Illness Consult date/time: 02/01/25 13:38 Requesting physician: Asad Ray MD Consult reason: atrial fibrillation Reason For Visit: afib Narrative: Kriss Worley is a 74 year old female with Alzheimer's dementia. She comes to the hospital because she was feeling spacey. Cardiology is consulted for atrial fibrillation. Patient states she thinks she remembers being told she had atrial fibrillation in the past but is unable to give me any details. She denies palpitations, chest pain, shortness of breath, swelling, syncope. She does report a fall last week caused by tripping on an object. Currently in atrial fibrillation with heart rate controlled in the 60's. Review of Systems 2 Review of Systems: All systems reviewed & are unremarkable except as noted in HPI and below PMFSH Past Medical History Medical History Dementia of the Alzheimer's type Accidental fall Family History Family History Mother Hypertension Alzheimer dementia Sibling Hypertension Social History Social History Smoking status: Never smoker Alcohol intake: current Drinks per week: 1 Substance use: never Substance use type: does not use Do You Feel Safe in your Home?: Yes Lack of Transportation: No Lack of Food: Never True Current Housing: I Have Housing Concerned About Future Housing: No Difficulty Paying Gas/Electric Bills: No Difficulty Paying for Meds: No Currently Unemployed: No Education: Bachelor's Degree Difficulty w/ Childcare or Family Care: No Spiritual care concerns: No Meds Home Medications and Allergies Home Medications ?Medication ?Instructions ?Recorded ?Confirmed ?Type amlodipine 5 mg tablet 5 mg PO DAILY 05/03/24 01/29/25 History aspirin 81 mg chewable tablet 81 mg PO DAILY 05/03/24 01/29/25 History cyanocobalamin (vitamin B-12) 500 500 mcg PO DAILY 05/03/24 01/29/25 History mcg tablet donepezil 10 mg tablet 10 mg PO DAILY 05/03/24 01/29/25 History levothyroxine 88 mcg tablet 88 mcg PO DAILY 05/03/24 01/29/25 History memantine 10 mg tablet 10 mg PO QHS 05/03/24 01/29/25 History albuterol 90 mcg/actuation aerosol 180 mcg inhalation Q4H PRN wheezing 01/29/25 01/29/25 History inhaler cholecalciferol (vitamin D3) 25 25 mcg PO DAILY 01/29/25 01/29/25 History mcg (1,000 unit) tablet lamotrigine 25 mg tablet 25 mg PO Q12H 01/29/25 01/29/25 History melatonin 10 mg capsule 5 mg PO DAILY 01/29/25 01/29/25 History memantine 10 mg tablet (Namenda) 5 mg PO QAM Dementia 01/29/25 01/29/25 History naltrexone 50 mg tablet 50 mg PO Q24H 01/29/25 01/29/25 History Allergies Allergy/AdvReac Type Severity Reaction Status Date / Time amoxicillin Allergy Unknown Verified 01/28/25 18:24 codeine Allergy Dizziness Verified 01/28/25 18:24 lithium Allergy kidney Verified 01/28/25 18:24 failure morphine Allergy Vomiting Verified 01/28/25 18:24 olanzapine Allergy Confusion Verified 01/28/25 18:24 Penicillins Allergy Hives Verified 01/28/25 18:24 Vital Signs Vital Signs - 24 hr 01/31/25 15:56 01/31/25 20:15 01/31/25 20:25 Temperature 36.9 C 36.5 C Pulse Rate 65 98 98 Respiratory Rate 18 20 20 Blood Pressure 136/83 141/89 H Pulse Oximetry 97 94 94 Oxygen Delivery Room Air 02/01/25 04:18 02/01/25 09:05 Temperature 36.5 C Pulse Rate 64 Respiratory Rate 20 Blood Pressure 137/79 Pulse Oximetry 95 Oxygen Delivery Room Air Exam 2 Const: General: comfortable, no acute distress, alert and awake O rientation/consciousness: patient oriented x3 Other: Seems to have difficult with short term memory HENMT: Head: normal to inspection Eyes: General: appearance normal, both eyes and all related structures P upils: Equal, round and reactive pupils present Other: periorbital eccymosis right eye Neck: Neck: normal visual inspection, supple and no JVD Carotids: normal carotid upstroke Resp: Effort & Inspection: normal respiratory effort Auscultation: clear to auscultation bilaterally Cardio: Rate: regular rate Rhythm: abnormal rhythm irregularly irregular Heart sounds: S1 normal heart sound present, S2 normal heart sound present and Murmur heart sound present systolic GI: Auscultation: normal bowel sounds Skin: General skin exam: normal color Neuro: General: patient oriented x3 Cranial nerves: Yes Equal, round and reactive pupils present Extrem: General: normal to inspection Psych: Appearance: grossly normal Mental Status: mental status grossly normal Results Labs and Meds 01/31/25 04:10 01/29/25 04:57 Lab results: Intake and Output 01/31/25 02/01/25 02/01/25 23:59 07:59 15:59 Intake Total 910 390 480 Balance 910 390 480 Intake: Oral 910 390 480 Other: # Unmeasured Voids 4 1 4 Patient Weight 02/01/25 23:59 Weight 84.6 kg
[2025-02-01] MEDS: APIXABAN 5 MG TABLET PO (20:05)
[2025-02-01] MEDS: ACETAMINOPHEN 325 MG TABLET 650 MG PO (20:06)
[2025-02-01] MEDS: MEMANTINE 10 MG TABLET PO (20:06)
[2025-02-02] VITALS (8 sets, daily range): BP systolic 117–138; BP diastolic 66–89; PULSE 60–106; RESP 18–20; TEMP 36.5–36.8; O2SAT 97–98
[2025-02-02] MEDS: LEVOTHYROXINE SODIUM 88 MCG TABLET PO (05:30)
--- NOTE | 2025-02-02 07:59 | PM.IMPN ---
Progress Note: A&P Assessment and Plan (1) Acute UTI: Code(s): N39.0 - Urinary tract infection, site not specified Status: Acute Assessment and Plan: Continue with IV antibiotics monitor culture. (2) Atrial fibrillation, new onset: Code(s): I48.91 - Unspecified atrial fibrillation Status: Acute Assessment and Plan: Heart rate control. Continue current treatment. (3) Fall: Code(s): W19.XXXA - Unspecified fall, initial encounter Status: Acute Assessment and Plan: X ray both knees negative for acute injury Physical therapy once patient was stable. Plan This is a 74-year-old female who presents to [facility] via EMS from her usual nursing facility in accompanied by her 2 children for the complaint of feeling spacey. The patient has a history of Alzheimer's dementia, hypothyroidism, hypertension. She is usually A&O times 2-3 but reports feeling spacey for many years. Upon evaluation in the ER she reports feeling just fine, this seems to be inaccurate as the son says she has a very poor historian and does not elucidate her symptoms very well. She was about her usual on the day of admission 01/28/2025 when she had an unwitnessed fall and apparently bumped to the front of her head. The patient has no recollection of the fall. She was fine afterwards but then in the community areas was noted to be not paying attention and doing odd things. The family was concerned. On arrival she was found to be in atrial fibrillation with RVR. WBC 9.4, hemoglobin 11, INR 1.0, BUN 11, serum creatinine 0.71, TSH 2.86, alkaline phosphatase mildly elevated at 154, troponin negative, urinalysis with trace ketones, 1+ leukocyte esterase, 6-10 wbc's, quad viral screen negative. Head CT does not demonstrate any acute abnormalities, chest CT demonstrates morphologically suspicious enlarged lymph nodes within the mediastinum. She was given 2 L normal saline bolus, diltiazem 20 mg IV total and then placed on diltiazem 10 milligrams/hour GTT. This improved her heart rate. She was also started on Lovenox 88 mg subQ q.12 hours for elevated chads Vasc score. Given ceftriaxone as well. Atrial fibrillation with rapid ventricular rate received on diltiazem GTT at 10 milligrams/hour. She wavers between 90s and 130s. Start metoprolol 25 mg p.o. b.i.d. and wean GTT as tolerated. -continue telemetry in the IMU. -check 2D echocardiogram . Left ventricular systolic function is normal, estimated at 55-60%. The left ventricular diastolic function is abnormal. 5. E/e' 11 is mildly elevated. 6. Atrial fibrillation. 7. Left atrial chamber dimension is moderately enlarged. 8. There is mild aortic valve sclerosis. 9. The mitral valve has mildly calcified annulus. 10. There is moderate mitral valve regurgitation. 11. There is mild tricuspid valve regurgitation. 12. Mild pulmonary hypertension, estimated pulmonary arterial systolic pressure is 45 mmHg. 13. Dilated inferior vena cava with >50% collapse upon inspiration consistent with elevated right atrial pressure, 10 mmHg. Currently patient is on Cardizem 120 mg daily p.o., and Lovenox 1 mcg per kg subQ b.i.d. Patient has AFib RVR on arrival Consult cardiology for evaluation and treatment regarding rate control versus rhythm control and blood thinner Appreciate cardiology's consultation, increase Cardizem to 240 mg daily p.o., switch from Lovenox to Eliquis 5 mg b.i.d. p.o. Acute UTI -patient has no symptomatology to indicate infection she does have a abnormal UA and she is a very poor historian. Received ceftriaxone follow up urine culture no growth Fall at [facility] -unclear the etiology of this fall whether that be mechanical, seizure, syncope, arrhythmia. -continue telemetry, fall precautions, seizure precautions. Ambulate with assistance. -consult Neurology with her history of seizure. -PT OT evaluations Seizure disorder -restart [employer] antiepileptics Consulted neurologist Hypothyroidism -restart [employer] levothyroxine 88 mcg p.o. daily -check free T4, free T3 Hypertension -hold [employer]GER amlodipine for now. Metoprolol 25 mg p.o. b.i.d. started on 01/29/2025 Pathological mediastinal lymph nodes Alzheimer's dementia -restart [employer]GER memantine ----- Patient wishes to be DNR. Two children present on admission agreed. Saline lock IV. Telemetry. Fall precaution, seizure precaution Heart healthy diet. PT/OT, ambulate with assistance denies illicit drug use, alcohol, tobacco use Patient resides at [facility] Subjective Date/time seen: 02/02/25 07:59 Interval history: I saw examined patient today, patient is alert oriented, no focal weakness, patient also denies lightheadedness, chest pain shortness of breath or palpitation. Telemetry showed uncontrolled AFib, heart rate about 150 per minutes Exam Narrative: GENERAL: Pleasant, in no acute distress. Well-nourished. - EYES: EOMI. Anicteric. - HENT: Moist mucous membranes. - LUNGS: Clear to auscultation bilaterally, no wheezing, rhonchi, or rales. - CARDIOVASCULAR: Irregular irregular rhythm, tachycardia. No murmur. No JVD. - ABDOMEN: Soft, non-tender and non-distended. No palpable masses. - EXTREMITIES: No edema. Peripheral pulses 2+. Non-tender. - NEUROLOGIC: No focal neurological deficits. CN II-XII grossly intact. - PSYCHIATRIC: Awake, Alert and oriented x 3. Appropriate mood and affect. - SKIN: No rashes or lesions. Warm. - LYMPH: No cervical lymphadenopathy. Objective Data Vital Signs Vital Signs: Vital Signs - 24 hr 02/01/25 09:05 02/01/25 14:15 02/01/25 16:00 Temperature 97.9 F Pulse Rate 67 93 Respiratory Rate 18 Blood Pressure 124/70 Pulse Oximetry 97 Oxygen Delivery Room Air Fraction of Inspired Oxygen 02/01/25 19:49 02/01/25 20:00 02/01/25 20:05 Temperature 98.2 F Pulse Rate 89 130 H 60 Respiratory Rate 20 20 Blood Pressure 134/72 Pulse Oximetry 92 98 Oxygen Delivery Room Air Fraction of Inspired Oxygen 21 02/01/25 20:24 02/02/25 00:04 02/02/25 04:00 Temperature Pulse Rate 60 93 88 Respiratory Rate 20 Blood Pressure Pulse Oximetry 98 Oxygen Delivery Room Air Fraction of Inspired Oxygen 21 02/02/25 04:25 Temperature 97.7 F Pulse Rate 106 H Respiratory Rate 20 Blood Pressure 138/89 Pulse Oximetry 98 Oxygen Delivery Fraction of Inspired Oxygen Intake/Output Intake/Output: Intake & Output 01/30/25 01/31/25 02/01/25 02/02/25 23:59 23:59 23:59 23:59 Intake Total 780 1940 1900 490 Output Total 800 Balance 780 1140 1900 490 Meds/Results Medications: Active Medications Generic Name Dose Route Start Last Admin Trade Name Freq PRN Reason Stop Dose Admin Acetaminophen 650 mg 02/01/25 19:44 04/28/25 20:06 Acetaminophen 325 Mg Tablet PO 650 mg Q4H PRN Administration Pain Rated 1-3 Albuterol 2 puff 01/29/25 05:20 Albuterol Sulfate (*Sp) Aerosol 1 Puff INHALATION Q4HRT PRN wheezing Apixaban 5 mg 02/01/25 21:00 02/01/25 20:05 Apixaban 5 Mg Tablet PO 5 mg Q12HR JUAN Administration Cyanocobalamin 500 mcg 01/29/25 09:00 02/01/25 09:08 Cyanocobalamin 500 Mcg Tablet PO 500 mcg DAILY JUAN Administration Diltiazem HCl 120 mg 01/29/25 17:00 02/01/25 09:07 Diltiazem Hcl Cd 120 Mg Cap.24hr PO 120 mg QAM JUAN Administration Donepezil HCl 10 mg 01/29/25 09:00 02/01/25 09:07 Donepezil Hcl 10 Mg Tablet PO 10 mg DAILY JUAN Administration Lamotrigine 25 mg 01/29/25 09:00 02/01/25 20:05 Lamotrigine 25 Mg Tablet PO 25 mg Q12HR JUAN Administration Levothyroxine Sodium 88 mcg 01/29/25 06:30 02/02/25 05:30 Levothyroxine Sodium 88 Mcg Tablet PO 88 mcg DAILY@0630 JUAN Administration Memantine 10 mg 01/29/25 21:00 02/01/25 20:06 Memantine 10 Mg Tablet PO 10 mg QHS JUAN Administration Memantine 5 mg 01/29/25 09:00 02/01/25 09:07 Memantine 5 Mg Tablet PO 5 mg QAM JUAN Administration Vitamin D 1,000 units 01/29/25 09:00 02/01/25 09:08 Cholecalciferol 1,000 Units Tablet PO 1,000 units DAILY JUAN Administration Radiology Results: ITS Impressions Chest X-Ray 01/28/25 19:14 IMPRESSION: Irregularity of the air column within the distal trachea, possibly secondary to positioning for which CT examination of the chest is recommended. Head CT 01/28/25 19:30 Impression: No acute intracranial hemorrhage or suspicious mass effect. Chest CT 01/28/25 21:19 IMPRESSION: Morphologically suspicious, pathologically enlarged lymph nodes within the mediastinum, as detailed above. This likely represents the abnormality seen on frontal view of the chest, performed 2 hours earlier. Knee X-Ray 01/30/25 09:19 IMPRESSION: 1. No joint effusion or acute osseous abnormality at either knee. 2. 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 Knee X-Ray 01/30/25 09:19 IMPRESSION: 1. No joint effusion or acute osseous abnormality at either knee. 2. 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 Labs Labs: Laboratory Results - last 24 hr 01/30/25 18:01 Homocysteine 13.1 H
--- NOTE | 2025-02-02 08:00 | PM.DS ---
DS: Summary Time Spent with Patient Time attestation: Total time spent providing and/or coordinating discharge services: DS: Data Data Completed and Pending Labs on day of discharge: Labs from last 24 hours 01/30/25 18:01 Homocysteine 13.1 H Discharge Plan Discharge Consulting providers: Javier Gomez; Edwina Ag Patient Instructions: Enoxaparin (By injection), A-fib (Atrial Fibrillation) (GEN), Urinary Tract Infection in Women (GEN) Patient Language: Australian Follow-up/Referrals: Kassandra Shannon, [employer] [Advanced Practice Nurse] - Call for Appointment Discharge Medications: No Action donepezil 10 mg tablet 10 mg PO DAILY amlodipine 5 mg tablet 5 mg PO DAILY levothyroxine 88 mcg tablet 88 mcg PO DAILY cyanocobalamin (vitamin B-12) 500 mcg tablet 500 mcg PO DAILY aspirin 81 mg tablet,chewable 81 mg PO DAILY memantine 10 mg tablet 10 mg PO QHS memantine [Namenda] 10 mg tablet 5 mg PO QAM melatonin 10 mg capsule 5 mg PO DAILY cholecalciferol (vitamin D3) 25 mcg (1,000 unit) tablet 25 mcg PO DAILY naltrexone 50 mg tablet 50 mg PO Q24H lamotrigine 25 mg tablet 25 mg PO Q12H Patient Comments: Patient not sure on frequency. See pharmacy instructions albuterol 90 mcg/actuation aerosol 180 mcg inhalation Q4H PRN (Reason: wheezing) Rx Instructions: 2 puffs q4h as needed for wheezing. Date of admission: 01/28/25 23:50 Primary Care Provider: Johnnie,Nan Petty Admitting Provider: Karla Nguyen Attending physician on admission: Karla Nguyen Condition: Stable
[2025-02-02] MEDS: MEMANTINE 5 MG TABLET PO (08:28)
[2025-02-02] MEDS: CYANOCOBALAMIN 500 MCG TABLET PO (08:28)
[2025-02-02] MEDS: lamoTRIgine 25 MG TABLET PO ×2 (08:28→20:47)
[2025-02-02] MEDS: dilTIAZem HCL CD 120 MG CAP.24HR PO ×2 (08:28→10:11)
[2025-02-02] MEDS: CHOLECALCIFEROL 1,000 UNITS TABLET 1000 UNITS PO (08:28)
[2025-02-02] MEDS: DONEPEZIL HCL 10 MG TABLET PO (08:28)
[2025-02-02] MEDS: APIXABAN 5 MG TABLET PO ×2 (08:28→20:47)
--- NOTE | 2025-02-02 09:49 | P.PNCA_ITS ---
Progress Note: A&P Assessment and Plan (1) Atrial fibrillation, new onset: Code(s): I48.91 - Unspecified atrial fibrillation Status: Acute Assessment and Plan: This is not a new diagnosis. There is an EKG from November of this year demonstrating atrial fibrillation. * Increase diltiazem to 240mg daily because of tachycardia overnight and this morning. * On therapeutic dose lovenox, will shift to eliquis for CVA risk reduction (CHADs2 Vasc score at least 2 for age, female gender). * Echo shows normal LV function with moderate MR, mild pHTN * No other cardiac workup indicated or recommended at this time * Will arrange for outpatient follow up in our office. Cardiology will sign off please call with questions. Subjective Date/time seen: 02/02/25 09:49 Interval history: Cardiology follow up visit Patient's heart rate has been elevated this morning particularly with movement. However, patient is asymptomatic. Review of Systems Review of Systems: All systems reviewed & are unremarkable except as noted in HPI and below Exam Const: General: comfortable, no acute distress, alert and awake Orientation/consciousness: patient oriented x3 Other: Seems to have difficult with short term memory HENMT: Head: normal to inspection Eyes: General: appearance normal, both eyes and all related structures Pupils: Equal, round and reactive pupils present Other: periorbital eccymosis right eye Neck: Neck: normal visual inspection, supple and no JVD Carotids: normal carotid upstroke Resp: Effort & Inspection: normal respiratory effort Auscultation: clear to auscultation bilaterally Cardio: Rate: tachycardic Rhythm: abnormal rhythm irregularly irregular Heart sounds: S1 normal heart sound present, S2 normal heart sound present and Murmur heart sound present systolic GI: Auscultation: normal bowel sounds Skin: General skin exam: normal color Neuro: General: patient oriented x3 Cranial nerves: Yes Equal, round and reactive pupils present Extrem: General: normal to inspection Psych: Appearance: grossly normal Mental Status: mental status grossly normal Objective Data Vital Signs Vital Signs: Vital Signs - 24 hr 02/01/25 14:15 02/01/25 16:00 02/01/25 19:49 Temperature 36.6 C 36.8 C Pulse Rate 67 93 89 Respiratory Rate 18 20 Blood Pressure 124/70 134/72 Pulse Oximetry 97 92 Oxygen Delivery Fraction of Inspired Oxygen 02/01/25 20:00 02/01/25 20:05 02/01/25 20:24 Temperature Pulse Rate 130 H 60 60 Respiratory Rate 20 20 Blood Pressure Pulse Oximetry 98 98 Oxygen Delivery Room Air Room Air Fraction of Inspired Oxygen 21 21 02/02/25 00:04 02/02/25 04:00 02/02/25 04:25 Temperature 36.5 C Pulse Rate 93 88 106 H Respiratory Rate 20 Blood Pressure 138/89 Pulse Oximetry 98 Oxygen Delivery Fraction of Inspired Oxygen 02/02/25 08:00 02/02/25 08:25 Temperature Pulse Rate 75 Respiratory Rate Blood Pressure Pulse Oximetry Oxygen Delivery Room Air Fraction of Inspired Oxygen Intake/Output Intake/Output: Intake & Output 01/30/25 01/31/25 02/01/25 02/02/25 23:59 23:59 23:59 23:59 Intake Total 780 1940 1900 730 Output Total 800 Balance 780 1140 1900 730 Meds/Results Medications: Active Medications Generic Name Dose Route Start Last Admin Trade Name Freq PRN Reason Stop Dose Admin Acetaminophen 650 mg 02/01/25 19:44 02/01/25 20:06 Acetaminophen 325 Mg Tablet PO 650 mg Q4H PRN Administration Pain Rated 1-3 Albuterol 2 puff 01/29/25 05:20 Albuterol Sulfate (*Sp) Aerosol 1 Puff INHALATION Q4HRT PRN wheezing Apixaban 5 mg 02/01/25 21:00 02/02/25 08:28 Apixaban 5 Mg Tablet PO 5 mg Q12HR JUAN Administration Cyanocobalamin 500 mcg 01/29/25 09:00 02/02/25 08:28 Cyanocobalamin 500 Mcg Tablet PO 500 mcg DAILY JUAN Administration Diltiazem HCl 120 mg 01/29/25 17:00 02/02/25 08:28 Diltiazem Hcl Cd 120 Mg Cap.24hr PO 120 mg QAM JUAN Administration Diltiazem HCl 120 mg 02/02/25 09:55 Diltiazem Hcl Cd 120 Mg Cap.24hr PO 02/02/25 09:56 ONCE ONE Donepezil HCl 10 mg 01/29/25 09:00 02/02/25 08:28 Donepezil Hcl 10 Mg Tablet PO 10 mg DAILY JUAN Administration Lamotrigine 25 mg 01/29/25 09:00 02/02/25 08:28 Lamotrigine 25 Mg Tablet PO 25 mg Q12HR JUAN Administration Levothyroxine Sodium 88 mcg 01/29/25 06:30 02/02/25 05:30 Levothyroxine Sodium 88 Mcg Tablet PO 88 mcg DAILY@0630 JUAN Administration Memantine 10 mg 01/29/25 21:00 02/01/25 20:06 Memantine 10 Mg Tablet PO 10 mg QHS JUAN Administration Memantine 5 mg 01/29/25 09:00 02/02/25 08:28 Memantine 5 Mg Tablet PO 5 mg QAM JUAN Administration Vitamin D 1,000 units 01/29/25 09:00 02/02/25 08:28 Cholecalciferol 1,000 Units Tablet PO 1,000 units DAILY JUAN Administration Radiology Results: ITS Impressions Chest X-Ray 01/28/25 19:14 IMPRESSION: Irregularity of the air column within the distal trachea, possibly secondary to positioning for which CT examination of the chest is recommended. Head CT 01/28/25 19:30 Impression: No acute intracranial hemorrhage or suspicious mass effect. Chest CT 01/28/25 21:19 IMPRESSION: Morphologically suspicious, pathologically enlarged lymph nodes within the mediastinum, as detailed above. This likely represents the abnormality seen on frontal view of the chest, performed 2 hours earlier. Knee X-Ray 01/30/25 09:19 IMPRESSION: 1. No joint effusion or acute osseous abnormality at either knee. 2. 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 Knee X-Ray 01/30/25 09:19 IMPRESSION: 1. No joint effusion or acute osseous abnormality at either knee. 2. 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 Labs Labs: Laboratory Results - last 24 hr 01/30/25 18:01 Homocysteine 13.1 H
[2025-02-02] MEDS: MEMANTINE 10 MG TABLET PO (20:47)
[2025-02-03] VITALS: PULSE 81
[2025-02-03 03:48] VITALS: BP 135/57; PULSE 81; RESP 20; TEMP 36.5; O2SAT 99
[2025-02-03 04:00] VITALS: PULSE 105
[2025-02-03] MEDS: LEVOTHYROXINE SODIUM 88 MCG TABLET PO (05:27)
--- NOTE | 2025-02-03 07:51 | PM.IMPN ---
Progress Note: A&P Assessment and Plan (1) Acute UTI: Code(s): N39.0 - Urinary tract infection, site not specified Status: Acute (2) Atrial fibrillation, new onset: Code(s): I48.91 - Unspecified atrial fibrillation Status: Acute (3) Fall: Code(s): W19.XXXA - Unspecified fall, initial encounter Status: Acute Plan This is a 74-year-old female who presents to [facility] via EMS from her usual nursing facility in accompanied by her 2 children for the complaint of feeling spacey. The patient has a history of Alzheimer's dementia, hypothyroidism, hypertension. She is usually A&O times 2-3 but reports feeling spacey for many years. Upon evaluation in the ER she reports feeling just fine, this seems to be inaccurate as the son says she has a very poor historian and does not elucidate her symptoms very well. She was about her usual on the day of admission 01/28/2025 when she had an unwitnessed fall and apparently bumped to the front of her head. The patient has no recollection of the fall. She was fine afterwards but then in the community areas was noted to be not paying attention and doing odd things. The family was concerned. On arrival she was found to be in atrial fibrillation with RVR. WBC 9.4, hemoglobin 11, INR 1.0, BUN 11, serum creatinine 0.71, TSH 2.86, alkaline phosphatase mildly elevated at 154, troponin negative, urinalysis with trace ketones, 1+ leukocyte esterase, 6-10 wbc's, quad viral screen negative. Head CT does not demonstrate any acute abnormalities, chest CT demonstrates morphologically suspicious enlarged lymph nodes within the mediastinum. She was given 2 L normal saline bolus, diltiazem 20 mg IV total and then placed on diltiazem 10 milligrams/hour GTT. This improved her heart rate. She was also started on Lovenox 88 mg subQ q.12 hours for elevated chads Vasc score. Given ceftriaxone as well. Atrial fibrillation with rapid ventricular rate received on diltiazem GTT at 10 milligrams/hour. She wavers between 90s and 130s. Start metoprolol 25 mg p.o. b.i.d. and wean GTT as tolerated. -continue telemetry in the IMU. -check 2D echocardiogram . Left ventricular systolic function is normal, estimated at 55-60%. The left ventricular diastolic function is abnormal. 5. E/e' 11 is mildly elevated. 6. Atrial fibrillation. 7. Left atrial chamber dimension is moderately enlarged. 8. There is mild aortic valve sclerosis. 9. The mitral valve has mildly calcified annulus. 10. There is moderate mitral valve regurgitation. 11. There is mild tricuspid valve regurgitation. 12. Mild pulmonary hypertension, estimated pulmonary arterial systolic pressure is 45 mmHg. 13. Dilated inferior vena cava with >50% collapse upon inspiration consistent with elevated right atrial pressure, 10 mmHg. was on Cardizem 120 mg daily p.o., and Lovenox 1 mcg per kg subQ b.i.d. Consult cardiology for evaluation and treatment regarding rate control versus rhythm control and blood thinner Appreciate cardiology's consultation, increase Cardizem to 240 mg daily p.o., switch from Lovenox to Eliquis 5 mg b.i.d. p.o. radiated controlled now Acute UTI -patient has no symptomatology to indicate infection she does have a abnormal UA and she is a very poor historian. Received ceftriaxone follow up urine culture no growth Fall at [facility] -unclear the etiology of this fall whether that be mechanical, seizure, syncope, arrhythmia. -continue telemetry, fall precautions, seizure precautions. Ambulate with assistance. -consult Neurology with her history of seizure. Neurologist considers fall is not related to the neuro issues -PT OT evaluations Seizure disorder Continue [employer] antiepileptics Consulted neurologist Hypothyroidism c/w [employer]ILDING [employer]ER[employer] levothyroxine 88 mcg p.o. daily -check free T4, free T3 all wnl Hypertension hold [employer] amlodipine for now. Metoprolol 25 mg p.o. b.i.d. started on 01/29/2025 add cardizem for rate and BP control Pathological mediastinal lymph nodes Alzheimer's dementia restart [employer] memantine ----- Patient wishes to be DNR. Two children present on admission agreed. Saline lock IV. Telemetry. Fall precaution, seizure precaution Heart healthy diet. PT/OT, ambulate with assistance denies illicit drug use, alcohol, tobacco use Patient resides at [facility] Subjective Date/time seen: 02/03/25 07:51 Interval history: I saw and examined patient today. Patient denies lightheadedness, palpitation, chest pain, shortness are of breath, abdomen pain, nausea vomiting or focal weakness. Telemetry showed AFib, rate is controlled Exam Narrative: GENERAL: Pleasant, in no acute distress. Well-nourished. - EYES: EOMI. Anicteric. - HENT: Moist mucous membranes. - LUNGS: Clear to auscultation bilaterally, no wheezing, rhonchi, or rales. - CARDIOVASCULAR: Irregular irregular rhythm, rate is controlled No murmur. No JVD. - ABDOMEN: Soft, non-tender and non-distended. No palpable masses. - EXTREMITIES: No edema. Peripheral pulses 2+. Non-tender. - NEUROLOGIC: No focal neurological deficits. CN II-XII grossly intact. - PSYCHIATRIC: Awake, Alert and oriented x 3. Appropriate mood and affect. - SKIN: No rashes or lesions. Warm. - LYMPH: No cervical lymphadenopathy. Objective Data Vital Signs Vital Signs: Vital Signs - 24 hr 02/02/25 08:00 02/02/25 08:25 02/02/25 12:00 Temperature Pulse Rate 75 94 Respiratory Rate Blood Pressure Pulse Oximetry Oxygen Delivery Room Air 02/02/25 16:00 02/02/25 16:00 02/02/25 20:00 Temperature 98.2 F Pulse Rate 82 87 Respiratory Rate 18 Blood Pressure 117/66 Pulse Oximetry 97 Oxygen Delivery Room Air 02/02/25 20:00 02/02/25 20:02 02/03/25 00:00 Temperature 97.7 F Pulse Rate 95 60 81 Respiratory Rate 20 Blood Pressure 123/77 Pulse Oximetry 97 Oxygen Delivery 02/03/25 03:48 02/03/25 04:00 Temperature 97.7 F Pulse Rate 81 105 H Respiratory Rate 20 Blood Pressure 135/57 L Pulse Oximetry 99 Oxygen Delivery Intake/Output Intake/Output: Intake & Output 01/31/25 02/01/25 02/02/25 02/03/25 23:59 23:59 23:59 23:59 Intake Total 1940 1900 1060 490 Output Total 800 Balance 1140 1900 1060 490 Meds/Results Medications: Active Medications Generic Name Dose Route Start Last Admin Trade Name Freq PRN Reason Stop Dose Admin Acetaminophen 650 mg 02/01/25 19:44 02/01/25 20:06 Acetaminophen 325 Mg Tablet PO 650 mg Q4H PRN Administration Pain Rated 1-3 Albuterol 2 puff 01/29/25 05:20 Albuterol Sulfate (*Sp) Aerosol 1 Puff INHALATION Q4HRT PRN wheezing Apixaban 5 mg 02/01/25 21:00 02/02/25 20:47 Apixaban 5 Mg Tablet PO 5 mg Q12HR JUAN Administration Cyanocobalamin 500 mcg 01/29/25 09:00 02/02/25 08:28 Cyanocobalamin 500 Mcg Tablet PO 500 mcg DAILY JUAN Administration Diltiazem HCl 120 mg 01/29/25 17:00 02/02/25 08:28 Diltiazem Hcl Cd 120 Mg Cap.24hr PO 120 mg QAM JUAN Administration Donepezil HCl 10 mg 01/29/25 09:00 02/02/25 08:28 Donepezil Hcl 10 Mg Tablet PO 10 mg DAILY JUAN Administration Lamotrigine 25 mg 01/29/25 09:00 02/02/25 20:47 Lamotrigine 25 Mg Tablet PO 25 mg Q12HR JUAN Administration Levothyroxine Sodium 88 mcg 01/29/25 06:30 02/03/25 05:27 Levothyroxine Sodium 88 Mcg Tablet PO 88 mcg DAILY@0630 JUAN Administration Memantine 10 mg 01/29/25 21:00 02/02/25 20:47 Memantine 10 Mg Tablet PO 10 mg QHS JUAN Administration Memantine 5 mg 01/29/25 09:00 02/02/25 08:28 Memantine 5 Mg Tablet PO 5 mg QAM JUAN Administration Vitamin D 1,000 units 01/29/25 09:00 02/02/25 08:28 Cholecalciferol 1,000 Units Tablet PO 1,000 units DAILY JUAN Administration Radiology Results: ITS Impressions Chest X-Ray 01/28/25 19:14 IMPRESSION: Irregularity of the air column within the distal trachea, possibly secondary to positioning for which CT examination of the chest is recommended. Head CT 01/28/25 19:30 Impression: No acute intracranial hemorrhage or suspicious mass effect. Chest CT 01/28/25 21:19 IMPRESSION: Morphologically suspicious, pathologically enlarged lymph nodes within the mediastinum, as detailed above. This likely represents the abnormality seen on frontal view of the chest, performed 2 hours earlier. Knee X-Ray 01/30/25 09:19 IMPRESSION: 1. No joint effusion or acute osseous abnormality at either knee. 2. 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 Knee X-Ray 01/30/25 09:19
--- NOTE | 2025-02-03 07:53 | P.DS_ITS ---
DS: Admitting Diagnosis Discharge Date 02/03/25 Admitting Diagnosis (1) Acute UTI: Code(s): N39.0 - Urinary tract infection, site not specified Status: Acute (2) Atrial fibrillation, new onset: Code(s): I48.91 - Unspecified atrial fibrillation Status: Acute (3) Fall: Code(s): W19.XXXA - Unspecified fall, initial encounter Status: Acute DS: Discharge Diagnosis Discharge Diagnosis (1) Acute UTI: Code(s): N39.0 - Urinary tract infection, site not specified Status: Acute (2) Atrial fibrillation, new onset: Code(s): I48.91 - Unspecified atrial fibrillation Status: Acute (3) Fall: Code(s): W19.XXXA - Unspecified fall, initial encounter Status: Acute DS: Summary Hospital Course Hospital Course: This is a 74-year-old female who presents to [facility] via EMS from her usual nursing facility in accompanied by her 2 children for the complaint of feeling spacey. The patient has a history of Alzheimer's dementia, hypothyroidism, hypertension. She is usually A&O times 2-3 but reports feeling spacey for many years. Upon evaluation in the ER she reports feeling just fine, this seems to be inaccurate as the son says she has a very poor historian and does not elucidate her symptoms very well. She was about her usual on the day of admission 01/28/2025 when she had an unwitnessed fall and apparently bumped to the front of her head. The patient has no recollection of the fall. She was fine afterwards but then in the community areas was noted to be not paying attention and doing odd things. The family was concerned. On arrival she was found to be in atrial fibrillation with RVR. WBC 9.4, hemoglobin 11, INR 1.0, BUN 11, serum creatinine 0.71, TSH 2.86, alkaline phosphatase mildly elevated at 154, troponin negative, urinalysis with trace ketones, 1+ leukocyte esterase, 6-10 wbc's, quad viral screen negative. Head CT does not demonstrate any acute abnormalities, chest CT demonstrates morphologically suspicious enlarged lymph nodes within the mediastinum. She was given 2 L normal saline bolus, diltiazem 20 mg IV total and then placed on diltiazem 10 milligrams/hour GTT. This improved her heart rate. She was also started on Lovenox 88 mg subQ q.12 hours for elevated chads Vasc score. Given ceftriaxone as well. The following med issues have been addressed during hospitalization Atrial fibrillation with rapid ventricular rate received on diltiazem GTT at 10 milligrams/hour. She wavers between 90s and 130s. Start metoprolol 25 mg p.o. b.i.d. and wean GTT as tolerated. -continue telemetry in the IMU. -check 2D echocardiogram . Left ventricular systolic function is normal, estimated at 55-60%. The left ventricular diastolic function is abnormal. 5. E/e' 11 is mildly elevated. 6. Atrial fibrillation. 7. Left atrial chamber dimension is moderately enlarged. 8. There is mild aortic valve sclerosis. 9. The mitral valve has mildly calcified annulus. 10. There is moderate mitral valve regurgitation. 11. There is mild tricuspid valve regurgitation. 12. Mild pulmonary hypertension, estimated pulmonary arterial systolic pressure is 45 mmHg. 13. Dilated inferior vena cava with >50% collapse upon inspiration consistent with elevated right atrial pressure, 10 mmHg. Currently patient is on Cardizem 120 mg daily p.o., and Lovenox 1 mcg per kg subQ b.i.d. Patient has AFib RVR on arrival Consult cardiology for evaluation and treatment regarding rate control versus rhythm control and blood thinner Appreciate cardiology's consultation, increase Cardizem to 240 mg daily p.o., switch from Lovenox to Eliquis 5 mg b.i.d. p.o. Acute UTI -patient has no symptomatology to indicate infection she does have a abnormal UA and she is a very poor historian. Received ceftriaxone follow up urine culture no growth Fall at longterm -unclear the etiology of this fall whether that be mechanical, seizure, syncope, arrhythmia. -continue telemetry, fall precautions, seizure precautions. Ambulate with assistance. -consult Neurology with her history of seizure. 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 daily -check free T4, free T3 all wnl Hypertension -hold [employer]RI[employer]ION ESTIMATOR amlodipine for now. Metoprolol 25 mg p.o. b.i.d. started on 01/29/2025 add cardizem for rate and BP control Pathological mediastinal lymph nodes Alzheimer's dementia Increased DISTRIBUTION ESTIMATOR memantine to 10 mg daily per neurologist recommendation Time Spent with Patient Time attestation: Total time spent providing and/or coordinating discharge services: Exam Narrative: GENERAL: Pleasant, in no acute distress. Well-nourished. - EYES: EOMI. Anicteric. - HENT: Moist mucous membranes. - LUNGS: Clear to auscultation bilateral ly, no wheezing, rhonchi, or rales. - CARDIOVASCULAR: Irregular irregular r hythm, tachycardia. No murmur. No JVD. - ABDOMEN: Soft, non-tender and non-dist ended. No palpable masses. - EXTREMITIES: No edema. Peripheral puls es 2+. Non-tender. - NEUROLOGIC: No focal neurological defi cits. CN II-XII grossly intact. - PSYCHIATRIC: Awake, Alert and oriented x 3. Appropriate mood and affect. - SKIN: No rashes or lesions. Warm. - LYMPH: No cervical lymphadenopathy. Discharge Plan Discharge Attending physician on discharge: Asad Ray Consulting providers: Javier Gomez; Edwina Ag Discharging Clinician: Asad Ray Anticipated Discharge Date/Time: 02/02/25 08:01 Patient Disposition: SNF Activity: as tolerated Diet: as tolerated and heart healthy Patient Instructions: Antibiotic Form, Apixaban (By mouth), A-fib (Atrial Fibrillation) (GEN), Urinary Tract Infection in Women (GEN) Patient Language: Kinyarwanda Stand Alone Forms: General Discharge Information Follow-up/Referrals: Johnnie,ROSEMARY Killian [Primary Care Provider] - (Patient needs to see primary care doctor in 1 week) Kassandra Shannon APN-C [Advanced Practice Nurse] - Call for Appointment Javier Gomez MD [Physician] - (Patient needs to call neurologist for follow-up appointment) Discharge Medications: New Eliquis 5 mg Tablet 5 mg PO Q12HR Qty: 60 1RF diltiazem HCl [Cardizem LA] 240 mg tablet extended release 24 hr 240 mg PO QAM Qty: 30 1RF Continued donepezil 10 mg tablet 10 mg PO DAILY levothyroxine 88 mcg tablet 88 mcg PO DAILY cyanocobalamin (vitamin B-12) 500 mcg tablet 500 mcg PO DAILY aspirin 81 mg tablet,chewable 81 mg PO DAILY melatonin 10 mg capsule 5 mg PO DAILY cholecalciferol (vitamin D3) 25 mcg (1,000 unit) tablet 25 mcg PO DAILY naltrexone 50 mg tablet 50 mg PO Q24H lamotrigine 25 mg tablet 25 mg PO Q12H Patient Comments: Patient not sure on frequency. See pharmacy instructions albuterol 90 mcg/actuation aerosol 180 mcg inhalation Q4H PRN (Reason: wheezing) Rx Instructions: 2 puffs q4h as needed for wheezing. memantine 10 mg tablet 10 mg PO QHS Qty: 30 1RF Discontinued amlodipine 5 mg tablet 5 mg PO DAILY memantine [Namenda] 10 mg tablet 5 mg PO QAM Date of admission: 01/28/25 23:50 Primary Care Provider: JohnnieNan Admitting Provider: Karla Nguyen Attending physician on admission: Karla Nguyen Condition: Stable
[2025-02-03 08:00] VITALS: PULSE 93
[2025-02-03] MEDS: dilTIAZem HCL CD 120 MG CAP.24HR PO (08:27)
[2025-02-03] MEDS: CHOLECALCIFEROL 1,000 UNITS TABLET 1000 UNITS PO (08:27)
[2025-02-03] MEDS: lamoTRIgine 25 MG TABLET PO (08:27)
[2025-02-03] MEDS: APIXABAN 5 MG TABLET PO (08:28)
[2025-02-03] MEDS: DONEPEZIL HCL 10 MG TABLET PO (08:28)
[2025-02-03] MEDS: MEMANTINE 5 MG TABLET PO (08:28)
[2025-02-03] MEDS: CYANOCOBALAMIN 500 MCG TABLET PO (08:28)
[2025-02-03 12:00] VITALS: PULSE 104
[2025-02-03 19:58] LABS: Methylmalonic Acid 101 nmol/L (69-390)
== END 2025-02-03 16:55 | DRG 690 ==
LOC: ANHED 22:59 → ANHIMU 23:53 → ANH2MED 01-31 12:36
PROVIDERS: Internal Medicine; Psychiatry & Neurology Neurology; Registered Nurse; Admitting Provider General Practice; Emergency Provider Emergency Medicine; PCP Physician Assistant; Visit Provider Hospitalist
DX: N39.0 Urinary tract infection, site not specified (principal); W19.XXXA Unspecified fall, initial encounter; E03.9 Hypothyroidism, unspecified; F02.80 Dementia in other diseases classified elsewhere, unspecified severity, without behavioral disturbance, psychotic disturbance, mood disturbance, and anxiety; G40.909 Epilepsy, unspecified, not intractable, without status epilepticus; G30.9 Alzheimer's disease, unspecified; I48.91 Unspecified atrial fibrillation; I10 Essential (primary) hypertension; Z66 Do not resuscitate; Z20.822 Contact with and (suspected) exposure to COVID-19; Z88.0 Allergy status to penicillin
CPT/HCPCS: 36415; 70450; 71045; 71250; 73562; 80048; 80053; 81001; 82306; 82607; 82746; 83090; 83735; 83921; 84439; 84443; 84484; 85025; 85027; 85610; 85730; 87086; 87637; 93005; 93306; 96361; 96365; 96372; 96375; 96376; 97161; 97165; 97530; 99285; A9270; J0696; J1650; J7030

== ENCOUNTER 2025-02-09 08:37 | Emergency (ER) | payer MEDICARE, SELFPAY ==
--- NOTE | ~2025-02-09 | XR_ITS ---
XR chest 2V Ordering provider: Med De La Rosa III, DO History: 74 years Female with . chest discomfort . Comparison: January 28, 2025 FINDINGS: MEDIASTINUM: The cardiac silhouette is not enlarged. LUNGS: No infiltrates, effusions or pneumothorax. The right upper lobe pleural reflection which is pr ojected over the trachea is unchanged from previous examination. OTHER: No free air under the diaphragm. Degenerative changes of the spine. IMPRESSION: No acute cardiopulmonary pathology. No change from previous examination. Reviewed, dictated and finalized at location A.
[2025-02-09 08:39] VITALS: BP 122/70; PULSE 77; RESP 15; TEMP 36.7; O2SAT 98
--- NOTE | 2025-02-09 08:44 | ECG_ITS ---
Test Date: 2025-02-09 08:49:17 Measurements Intervals [place] Rate: 68 P: 0 SC: 0 QRS: 1 QRSD: 121 T: 43 QT: 379 QTc: 405 Interpretive Statements ATRIAL FIBRILLATION MODERATE INTRAVENTRICULAR CONDUCTION DELAY [110+ ms QRS DURATION] NONSPECIFIC T-WAVE ABNORMALITY ABNORMAL RHYTHM ECG Compared to ECG 01/28/2025 18:47:31 RVR NO LONGER PRESENT Electronically Signed On 02-09-2025 14:31:35 CDT by Niecy Ashton M.D.
[2025-02-09 08:59] LABS: Basophils Absolute Auto 0.1 K/mm3 (0.0-0.1); Basophils Percent Auto 0.9 % (0.2-1.2); Eosinophils Absolute Auto 0.2 K/mm3 (0-0.3); Eosinophils Percent Auto 3.2 % (0-4.4); Hematocrit 36.7 % (37.0-47.0); Hemoglobin 10.7 g/dL (12.0-15.0); Immature Granulocyte Absolute 0.02 K/mm3 (0.00-0.031); Immature Granulocyte Percent A 0.4 % (0-0.5); Lymphocytes Absolute Auto 1.58 K/mm3 (0.9-3.2); Lymphocytes Percent Auto 28.5 % (18.3-44.2); Mean Corpuscular HGB Conc 29.2 g/dl (32-36); Mean Corpuscular Hemoglobin 25.2 pg (26-34); Mean Corpuscular Volume 86.4 fl (80-100); Mean Platelet Volume 9.9 fl (7.4-10.4); Monocytes Absolute Auto 0.5 K/mm3 (0.1-0.6); Monocytes Percent Auto 8.5 % (2.6-8.5); Neutrophils Absolute Auto 3.2 K/mm3 (1.3-6.7); Neutrophils Percent Auto 58.5 % (45.5-73.1); Platelet Count Result 341 k/mm3 (150-375); Red Blood Count 4.25 M/mm3 (4.2-5.4); White Blood Count 5.5 K/mm3 (4.5-10.0)
[2025-02-09 09:10] LABS: INR 1.3; Prothrombin Time 16.8 Seconds (11.1-14.7)
[2025-02-09 09:13] LABS: Alanine Aminotransferase 21 U/L (6-35); Albumin Level 3.8 g/dL (3.5-5.1); Alkaline Phosphatase 95 U/L (38-126); Anion Gap 6 mmol/L (4-12); Aspartate Amino Transferase 23 U/L (14-36); Bilirubin,Total 0.5 mg/dL (0.2-1.3); Blood Urea Nitrogen 9 mg/dL (7-17); Calcium 9.3 mg/dL (8.4-10.2); Carbon Dioxide 24 mmol/L (22-30); Chloride 108 mmol/L (98-107); Estimated CRCL calculation 82 ml/min; Estimated Glomerular Filt Rate > 60; Glucose 101 mg/dL (65-110); Lipase 66 U/L (23-300); Sodium 138 mmol/L (137-145)
[2025-02-09 09:18] LABS: Platelet Estimate Adequate (Adequate)
[2025-02-09 09:19] LABS: Schistocytes None Seen
[2025-02-09 09:25] LABS: Troponin I < 0.012 ng/mL (0.000-0.034)
--- NOTE | 2025-02-09 09:55 | ED_ITS ---
HPI - General Adult General Chief complaint: Recheck/Abnormal Lab/Rx Stated complaint: htn, spacey Time Seen by Provider: 02/09/25 09:11 History of Present Illness HPI narrative: Kriss Worley is a 74-year-old female who presents from assisted living. Her son is at the bedside and states that she has a past medical history of Alzheimer's has severe short-term memory loss and was recently admitted for atrial fibrillation. He states he is not entirely sure why she is here with his assisted-living stated that she was complaining of chest pain while she was there so the center here. Patient is alert and oriented to self place year however she says she has no idea why she is here she denies having any chest pain she denies shortness of breath she states she is just thirsty for some water maybe once a little bit more coffee. Related Data Home Medications ?Medication ?Instructions ?Recorded ?Confirmed ?Last Taken ?Type aspirin 81 mg chewable tablet 81 mg PO DAILY 05/03/24 01/29/25 01/28/25 History cyanocobalamin (vitamin B-12) 500 500 mcg PO DAILY 05/03/24 01/29/25 01/28/25 History mcg tablet donepezil 10 mg tablet 10 mg PO DAILY 05/03/24 01/29/25 01/28/25 History levothyroxine 88 mcg tablet 88 mcg PO DAILY 05/03/24 01/29/25 01/28/25 History albuterol 90 mcg/actuation aerosol 180 mcg inhalation Q4H PRN wheezing 01/29/25 01/29/25 Unknown History inhaler cholecalciferol (vitamin D3) 25 25 mcg PO DAILY 01/29/25 01/29/25 01/28/25 History mcg (1,000 unit) tablet lamotrigine 25 mg tablet 25 mg PO Q12H 01/29/25 01/29/25 01/28/25 History melatonin 10 mg capsule 5 mg PO DAILY 01/29/25 01/29/25 01/27/25 History naltrexone 50 mg tablet 50 mg PO Q24H 01/29/25 01/29/25 01/28/25 History Allergies Allergy/AdvReac Type Severity Reaction Status Date / Time amoxicillin Allergy Unknown Verified 01/28/25 18:24 codeine Allergy Dizziness Verified 01/28/25 18:24 lithium Allergy kidney Verified 01/28/25 18:24 failure morphine Allergy Vomiting Verified 01/28/25 18:24 olanzapine Allergy Confusion Verified 01/28/25 18:24 Penicillins Allergy Hives Verified 01/28/25 18:24 Review of Systems 2 Review of Systems: All systems reviewed & are unremarkable except as noted in HPI and below PMFSH Past Medical History Medical History Dementia of the Alzheimer's type Accidental fall Family History Family History Mother Hypertension Alzheimer dementia Sibling Hypertension Social History Social History Smoking status: Never smoker Alcohol intake: current Drinks per week: 1 Substance use: never Substance use type: does not use Do You Feel Safe in your Home?: Yes Lack of Transportation: No Lack of Food: Never True Current Housing: I Have Housing Concerned About Future Housing: No Difficulty Paying Gas/Electric Bills: No Difficulty Paying for Meds: No Currently Unemployed: No Education: Bachelor's Degree Difficulty w/ Childcare or Family Care: No Spiritual care concerns: No Exam 2 Narrative: GENERAL: Well-appearing, well-nourished, and in no acute distress. HEAD: Normocephalic, atraumatic. EYES: PERRLA and EOMI. ENT: Nares clear, no rhinorrhea or epistaxis. Mucous membranes moist. Oropharynx without tonsillar hypertrophy exudate or other lesions. NECK: Supple. No adenopathy or masses. No carotid bruits or JVD CHEST: Clear to auscultation. No respiratory distress. No wheezes rales or rhonchi HEART: Regular rate and rhythm. No murmur heard. Normal peripheral pulses. ABDOMEN: Soft, nontender, nondistended, normal active bowel sounds. EXTREMITIES: Normal range of motion. No edema. SKIN: Warm, dry, no rash. NEURO: No focal deficits. Alert and oriented x3. PSYCH: Normal mood and affect. Course Vital Signs Vital signs: Vital Signs Temperature 36.7 C 02/09/25 08:39 Pulse Rate 77 02/09/25 08:39 Respiratory Rate 15 02/09/25 08:39 Blood Pressure 122/70 02/09/25 08:39 Pulse Oximetry 98 05/06/25 08:39 Oxygen Delivery Room Air 02/09/25 08:39 Temperature 36.7 C 02/09/25 08:39 Pulse Rate 65 02/09/25 12:04 Respiratory Rate 18 02/09/25 12:04 Blood Pressure 137/93 H 02/09/25 12:04 Pulse Oximetry 98 02/09/25 12:04 Oxygen Delivery Room Air 02/09/25 08:39 Medical Decision Making MDM Narrative Medical decision making narrative: 74-year-old female with Alzheimer's disease denies any complaints now but per report she told her assisted living that she was having chest pain earlier. Plan to do a cardiac workup to rule out ACS Exam is stable CBC-no leukocytosis hemodynamically stable hemoglobin 10.7 hematocrit 36.7 CMP-unremarkable Lipase-66 which is negative Troponin 1-negative Troponin two- negative Chest x-ray- no acute cardiopulmonary EKG- Afib controlled in the 60's Patient re-evaluated at 12:40 p.m. after her 2nd troponin has resulted as negative she continues to deny any chest pain or shortness of breath. She states that she does feels like she is ready to eat dinner. She still does not have any memory of complaint of chest pain earlier food she has been here she has had 0 complaints. Her son is at the bedside and is updated on the results of the tests and updated with plans to discharge her back to her nursing facility he and patient are agreeable to this denied have any further questions or concerns. Medical Records Medical records reviewed: Yes I reviewed the external patient's medical records. Vital Signs Vital Signs: Vital Signs Temperature 36.7 C 02/09/25 08:39 Pulse Rate 77 02/09/25 08:39 Respiratory Rate 15 02/09/25 08:39 Blood Pressure 122/70 02/09/25 08:39 Pulse Oximetry 98 02/09/25 08:39 Oxygen Delivery Room Air 02/09/25 08:39 Temperature 36.7 C 02/09/25 08:39 Pulse Rate 65 02/09/25 12:04 Respiratory Rate 18 02/09/25 12:04 Blood Pressure 137/93 H 02/09/25 12:04 Pulse Oximetry 98 02/09/25 12:04 Oxygen Delivery Room Air 02/09/25 08:39 vitals reviewed by me Lab Data Lab results reviewed: Yes I reviewed the patient's lab results. 02/09/25 08:52 02/09/25 08:52 Labs: Lab Results 02/09/25 02/09/25 02/09/25 Range/Units 08:52 08:53 11:41 WBC 5.5 (4.5-10.0) K/mm3 RBC 4.25 (4.2-5.4) M/mm3 Hgb 10.7 L (12.0-15.0) g/dL Hct 36.7 L (37.0-47.0) % MCV 86.4 (80-100) fl MCH 25.2 L (26-34) pg MCHC 29.2 L (32-36) g/dl RDW 15.0 H (11.5-14.5) % Plt Count 341 (150-375) k/mm3 MPV 9.9 (7.4-10.4) fl Immature Gran % (Auto) 0.4 (0-0.5) % Neut % (Auto) 58.5 (45.5-73.1) % Lymph % (Auto) 28.5 (18.3-44.2) % [place] % (Auto) 8.5 (2.6-8.5) % Eos % (Auto) 3.2 (0-4.4) % Baso % (Auto) 0.9 (0.2-1.2) % Lymph # (Auto) 1.58 (0.9-3.2) K/mm3 [place] # (Auto) 0.5 (0.1-0.6) K/mm3 Eos # (Auto) 0.2 (0-0.3) K/mm3 Baso # (Auto) 0.1 (0.0-0.1) K/mm3 Abs Immat Gran (auto) 0.02 (0.00-0.031) K/mm3 Absolute Neuts (auto) 3.2 (1.3-6.7) K/mm3 Absolute Nucleated RBC 0.000 (0.0-0.012) K/mm3 Band Neutrophils % Not Reportable Nucleated RBC % 0.0 (0.0-0.2) % Platelet Estimate Adequate (Adequate) Schistocytes None seen PT 16.8 H (11.1-14.7) Seconds INR 1.3 APTT 32.0 (22.3-36.8) Seconds Sodium 138 (137-145) mmol/L Potassium 4.0 (3.4-5.0) mmol/L Chloride 108 H (98-107) mmol/L Carbon Dioxide 24 (22-30) mmol/L Anion Gap 6 (4-12) mmol/L BUN 9 (7-17) mg/dL Creatinine 0.51 L (0.7-1.0) mg/dL Estim Creat Clear Calc 82 ml/min Estimated GFR > 60 (59 - ) Glucose 101 (65-110) mg/dL Calcium 9.3 (8.4-10.2) mg/dL Total Bilirubin 0.5 (0.2-1.3) mg/dL AST 23 (14-36) U/L ALT 21 (6-35) U/L Alkaline Phosphatase 95 (38-126) U/L Troponin I < 0.012 < 0.012 (0.000-0.034) ng/mL Total Protein 6.0 L (6.3-8.2) g/dL Albumin 3.8 (3.5-5.1) g/dL Lipase 66 (23-300) U/L Imaging Data Radiologist's impression: Impressions Chest X-Ray 02/09/25 09:23 IMPRESSION: No acute cardiopulmonary pathology. No change from previous examination. ECG Data EKG #1: ECG completion date: 02/09/25 ECG completion time: 08:49 Prior ECG tracings: available for review Interpretation: Rate 68 CT 0 QRSd 121 QT 379 QTc 405 --[place]-- P 0 QRS 1 T 43 ATRIAL FIBRILLATION MODERATE INTRAVENTRICULAR CONDUCTION DELAY [110+ ms QRS DURATION] NONSPECIFIC T- WAVE ABNORMALITY ABNORMAL RHYTHM ECG Compared to ECG 01/28/2025 18:47:31 Intraventricular conduction delay now present T-wave abnormality now present Ventricular premature complex(es) no longer present Aberrant conduction of supraventricular beat(s) no longer presen EKG #2: ECG completion date: 02/09/25 ECG completion time: 11:45 Interpretation: Rate 58 CT 0 QRSd 97 QT 386 QTc 380 --[place]-- P 0 QRS 3 T 58 ATRIAL FIBRILLATION WITH SLOW VENTRICULAR RESPONSE NONSPECIFIC T-WAVE ABNORMALITY ABNORMAL RHYTHM ECG Compared to ECG 02/09/2025 08:49:17 Intraventricular conduction delay no longer present Discharge Plan Discharge Clinical Impression: Chest pain of unknown etiology Patient Disposition: SNF Condition: Stable Additional Instructions: Continues to take your medications as ordered and follow-up with your primary care doctor and cash grain grower as scheduled If he develops any worsening symptoms chest pain, shortness of breath, difficulty breathing as was returning to the ER. Patient Language: Norwegian Prescriptions: No Action donepezil 10 mg tablet 10 mg PO DAILY levothyroxine 88 mcg tablet 88 mcg PO DAILY cyanocobalamin (vitamin B-12) 500 mcg tablet 500 mcg PO DAILY aspirin 81 mg tablet,chewable 81 mg PO DAILY melatonin 10 mg capsule 5 mg PO DAILY cholecalciferol (vitamin D3) 25 mcg (1,000 unit) tablet 25 mcg PO DAILY naltrexone 50 mg tablet 50 mg PO Q24H lamotrigine 25 mg tablet 25 mg PO Q12H Patient Comments: Patient not sure on frequency. See pharmacy instructions albuterol 90 mcg/actuation aerosol 180 mcg inhalation Q4H PRN (Reason: wheezing) Rx Instructions: 2 puffs q4h as needed for wheezing. Eliquis 5 mg Tablet 5 mg PO Q12HR Qty: 60 1RF memantine 10 mg tablet 10 mg PO QHS Qty: 30 1RF diltiazem HCl [Cardizem LA] 240 mg tablet extended release 24 hr 240 mg PO QAM Qty: 30 1RF Follow-up/Referrals: Johnnie,ROSEMARY Killian [Primary Care Provider] - Stand Alone Forms: Jail Discharge Time of Disposition: 12:43
--- OUTSIDE RECORDS SUMMARY | 2025-02-09 10:15 | XMS_ITS | Encounter Summary ---
Author Organization [facility] Address [address] [facility] [address] [place] [address] Phone Care Team Providers Care Mophead Sewer Name Role Phone Nan Blair Primary Care Provider [phone] Jorge Jefferson MD Unavailable + [phone] Lizzie Collins MD Unavailable [phone] Freeamn Chung MD Unavailable [phone] Maribel Andrade MD Unavailable [phone] Guy Rosen MD Unavailable Miscellaneous, Not In File Primary Care Provider Unavailable Nan Blair Primary Care Provider [phone] Encounter Details Date Type Department Care Team [...] on file Legal Sex Female 1:09 AM FORGING ROLL OPERATOR Gender Identity Female 10/05/2020 10:15 AM FORGING ROLL OPERATOR Sexual Orientation Straight 10/05/2020 10 :15 AM FORGING ROLL OPERATOR Occupation Industry Job Start Date Job [...] on filedocumented in this encounter Care Teams Mophead Sewer Relationship Specialty Start Date End Date Nan Blair PA [address] [place] [address] PCP - General Physician Woodworking Craftsman 03/09/19 05/03/22 Miscellaneous, Not In File PCP - General 05/04/22 07/02/22 Nan Blair PA [address] [place] [address] PCP - General Family Medicine 07/03/22 Jorge Jefferson MD [address] [place] [address] Consulting Physician Family Medicine 03/09/19 Lizzie Collins MD [address] [facility] [place] [address] Weather Clerk Cardiology 05/18/19 Freeman Chung MD [address] [place] [address] Referring Physician Geriatric Psychiatry 06/09/20 Maribel Andrade MD [address] [facility] [address] [place] [address] Consulting Physician Anesthesiology 12/31/20 Guy Rosen MD [address] [place] [address] Psychiatry 01/11/22 documented as of this encounter
--- OUTSIDE RECORDS SUMMARY | 2025-02-09 10:15 | XMS_ITS | Encounter Summary ---
Author Organization [facility] Facility Care Team Providers Care Data Integrity Analyst Name Role Phone Nan Blair Primary Care Provider [phone] Jorge Jefferson MD Primary Care Provid er Nan Blair Unavailable [phone] Nan Blair Primary Care Provider [phone] Jorge Jefferson MD Unavailable + [phone] Lizzie Collins MD Unavailable [phone] Freeman Chung MD Unavailable [phone] Maribel Andrade MD Unavailable [phone] Guy Rosen MD Unavailable Miscellaneous, Not In File Primary Care Provider Unavailable Nan Blair Primary Care Provider [phone] Encounter Details Date Type Department Care Team (Latest Contact Info) Description 11/01/2017 Orders Only [facility] CLINCONV ProviderJulieta MD [address] [place] [address] Social History Tobacco Use Types Packs/Day Years Used Date Smoking Tobacco: Never Assessed Comments Unknown Sex and Gender Information Value Date Recorded Sex Assigned at Not on file Legal Sex Female 1:09 AM CNC MILL PROGRAMMER Gender Identity Female 10/05/2020 10:15 AM CNC MILL PROGRAMMER Sexual Orientation Straight 10/05/2020 10 :15 AM CNC MILL PROGRAMMER documented as of this encounter Plan of Treatment Not on file documented as of this encounter Procedures Procedure Name Priority Date/Time Associated Diagnosis Comments CARDIOLOGY REPORT 11/01/2017 12: 00 AM CNC MILL PROGRAMMER documented in this encounter Results * CARDIOLOGY REPORT (11/01/2017 12:00 AM CNC MILL PROGRAMMER) Anatomical Region Laterality Modality Other Narrative 11/01/2017 12:00 AM CNC MILL PROGRAMMER Ordered by an unspecified provider. us Historical Provider [facility] Final Result documented in this encounter Visit Diagnoses Not on filedocumented in this encounter Care Teams Data Integrity Analyst Relationship Specialty Start Date End Date Nan Blair PA [address] [place] [address] PCP - General Physician Financial Sales Advisor 04/28/18 02/01/19 Jorge Jefferson MD [address] [place] [address] PCP - General Family Medicine 02/02/19 03/08/19 Nan Bliar PA [address] [place] [address] PCP - General Physician Financial Sales Advisor 03/09/19 05/03/22 Miscellaneous, Not In File PCP - General 05/04/22 07/02/22 Nan Blair PA [address] [place] [address] PCP - General Family Medicine 07/03/22 Nan Blair PA [address] [place] [address] Physician Financial Sales Advisor Physician Financial Sales Advisor 02/02/19 9 Jorge Jefferson MD [address] [place] [address] Consulting Physician Family Medicine 03/09/19 Lizzie Collins MD [address] [address] Network Firewall Engineer Cardiology 05/18/19 Freeman Chung MD [address] [place] [address] Referring Physician Geriatric Psychiatry 06/09/20 Maribel Andrade MD [facility] [address] [address] Consulting Physician Anesthesiology 12/31/20 Guy Rosen MD [address] [place] [address] Psychiatry 01/11/22 documented as of this encounter
--- OUTSIDE RECORDS SUMMARY | 2025-02-09 10:15 | XMS_ITS | Encounter Summary ---
Author Organization [facility] Facility Care Team Providers Care Housing Project Manager Name Role Phone Nan Blair Primary Care Provider [phone] Jorge Jefferson MD Primary Care Provid er Nan Blair Unavailable [phone] Nan Blair Primary Care Provider [phone] Jorge Jefferson MD Unavailable + [phone] Lizzie Collins MD Unavailable [phone] Freeman Chung MD Unavailable [phone] Maribel Andrade MD Unavailable [phone] Guy Rosen MD Unavailable Miscellaneous, Not In File Primary Care Provider Unavailable Nan Blair Primary Care Provider [phone] Encounter Details Date Type Department Care Team (Latest Contact Info) Description 08/15/2017 Orders Only [facility] CLINCONV ProviderJulieta MD [address] [place] [address] Social History Tobacco Use Types Packs/Day Years Used Date Smoking Tobacco: Never Assessed Comments Unknown Sex and Gender Information Value Date Recorded Sex Assigned at Not on file Legal Sex Female 1:09 AM MARKET STALL VENDOR Gender Identity Female 10/05/2020 10:15 AM MARKET STALL VENDOR Sexual Orientation Straight 10/05/2020 10 :15 AM MARKET STALL VENDOR documented as of this encounter Plan of Treatment Not on file documented as of this encounter Procedures Procedure Name Priority Date/Time Associated Diagnosis Comments CARDIOLOGY REPORT 08/15/2017 12: 00 AM MARKET STALL VENDOR documented in this encounter Results * CARDIOLOGY REPORT (08/15/2017 12:00 AM MARKET STALL VENDOR) Anatomical Region Laterality Modality Other Narrative 08/15/2017 12:00 AM MARKET STALL VENDOR Ordered by an unspecified provider. us Historical Provider [facility] Final Result documented in this encounter Visit Diagnoses Not on filedocumented in this encounter Care Teams Housing Project Manager Relationship Specialty Start Date End Date Nan Blair PA [address] [place] [address] PCP - General Physician University Relations Director 04/28/18 02/01/19 Jorge Jefferson MD [address] [place] [address] PCP - General Family Medicine 02/02/19 03/08/19 Nan Blair PA [address] [place] [address] PCP - General Physician University Relations Director 03/09/19 05/03/22 Miscellaneous, Not In File PCP - General 05/04/22 07/02/22 Nan Blair PA [address] [place] [address] PCP - General Family Medicine 07/03/22 Nan Blair PA [address] [place] [address] Physician University Relations Director Physician University Relations Director 02/02/19 9 Jorge Jefferson MD [address] [place] [address] Consulting Physician Family Medicine 03/09/19 Lizzie Collins MD [address] [address] Solder Leveler Printed Circuit Boards Cardiology 05/18/19 Freeman Chung MD [address] [place] [address] Referring Physician Geriatric Psychiatry 06/09/20 Maribel Andrade MD [facility] [address] [address] Consulting Physician Anesthesiology 12/31/20 Guy Rosen MD [address] [place] [address] Psychiatry 01/11/22 documented as of this encounter
--- OUTSIDE RECORDS SUMMARY | 2025-02-09 10:15 | XMS_ITS | Encounter Summary ---
Author Organization [facility] Address [address] [facility] [address] [place] [address] Phone Care Team Providers Care Office Coordinator Receptionist Name Role Phone Nan Blair Primary Care Provider [phone] Jorge Jefferson MD Unavailable + [phone] Lizzie Collins MD Unavailable [phone] Freeman Chung MD Unavailable [phone] Maribel Andrade MD Unavailable [phone] Guy Rosen MD Unavailable Miscellaneous, Not In File Primary Care Provider Unavailable Nan Blair Primary Care Provider [phone] Encounter Details Date Type Department Care Team [...] on file Legal Sex Female 1:09 AM BELLOWS CHARGER ASSEMBLER Gender Identity Female 10/05/2020 10:15 AM BELLOWS CHARGER ASSEMBLER Sexual Orientation Straight 10/05/2020 10 :15 AM BELLOWS CHARGER ASSEMBLER Occupation Industry Job Start Date Job End [...] on filedocumented in this encounter Care Teams Office Coordinator Receptionist Relationship Specialty Start Date End Date Nan Blair PA [address] [place] [address] PCP - General Physician Marketing Performance Analyst 03/09/19 05/03/22 Miscellaneous, Not In File PCP - General 05/04/22 07/02/22 Nan Blair PA [address] [place] [address] PCP - General Family Medicine 07/03/22 Jorge Jefferson MD [address] [place] [address] Consulting Physician Family Medicine 03/09/19 Lizzie Collins MD [address] [facility] [place] [address] Waiter/Waitress Cocktail Lounge Cardiology 05/18/19 Freeman Chung MD [address] [place] [address] Referring Physician Geriatric Psychiatry 06/09/20 Maribel Andrade MD [address] [address] Consulting Physician Anesthesiology 12/31/20 Guy Rosen MD [address] [place] [address] Psychiatry 01/11/22 documented as of this encounter
--- OUTSIDE RECORDS SUMMARY | 2025-02-09 10:15 | XMS_ITS | Encounter Summary ---
Author Organization [facility] Facility Care Team Providers Care Behavioral School Counselors Name Role Phone Nan Blair Primary Care Provider [phone] Jorge Jefferson MD Primary Care Provid er Nan Blair Unavailable [phone] Nan Blair Primary Care Provider [phone] Jorge Jefferson MD Unavailable + [phone] Lizzie Collins MD Unavailable [phone] Freeman Chung MD Unavailable [phone] Maribel Andrade MD Unavailable [phone] Guy Rosen MD Unavailable Miscellaneous, Not In File Primary Care Provider Unavailable Nan Blair Primary Care Provider [phone] Encounter Details Date Type Department Care Team (Latest Contact Info) Description 04/17/2017 Orders Only [facility] CLINCONV ProviderJulieta MD [address] [place] [address] Social History Tobacco Use Types Packs/Day Years Used Date Smoking Tobacco: Never Assessed Comments Unknown Sex and Gender Information Value Date Recorded Sex Assigned at Not on file Legal Sex Female 1:09 AM CUSTOMER CARE AGENT Gender Identity Female 10/05/2020 10:15 AM CUSTOMER CARE AGENT Sexual Orientation Straight 10/05/2020 10 :15 AM CUSTOMER CARE AGENT documented as of this encounter Plan of [...] on filedocumented in this encounter Care Teams Behavioral School Counselors Relationship Specialty Start Date End Date Nan Blair PA [address] [place] [address] PCP - General Physician Blue Line Operator 04/28/18 02/01/19 Jorge Jefferson MD [address] [place], [place] [address] PCP - General Family Medicine 02/02/19 03/08/19 Nan Blair PA [address] [place] [address] PCP - General Physician Blue Line Operator 03/09/19 05/03/22 Miscellaneous, Not In File PCP - General 05/04/22 07/02/22 Nan Blair PA [address] [facility], [place] [address] PCP - General Family Medicine 07/03/22 Nan Blair PA [address] [place], [place] [address] Physician Blue Line Operator Physician Blue Line Operator 02/02/19 9 Jorge Jefferson MD [address] [place] [address] Consulting Physician Family Medicine 03/09/19 Lizzie Collins MD [address] [address] Nutritionist Cardiology 05/18/19 Freeman Chung MD [address] [place] [address] Referring Physician Geriatric Psychiatry 06/09/20 Maribel Andrade MD [address] [address] Consulting Physician Anesthesiology 12/31/20 Guy Rosen MD [address] [place] [address] Psychiatry 01/11/22 documented as of this encounter
--- OUTSIDE RECORDS SUMMARY | 2025-02-09 10:15 | XMS_ITS | Clinical Summary ---
Author Organization [facility] Address [address] [place] [address] Care Team Providers Care Ledger Clerk Name Role Phone Nan Blair Primary Care Provider [phone] Allergies Active Allergy Reactions Criticality Noted Date Comments Codeine Nausea and Vomiting,Other (see comment) Low 03/16/2016 Spaced out and sick to stomach [place] Other (see comment) Low 02/02/2019 Severe reaction-Kidney [...] October 2019 Bipolar 1 disorder, depressed, moderate ([facility]) 11/06/2017 Overview (03/17/2020): Last Assessment & Plan: Patient has not made appointment with a psychiatrist. Patient reports she is feeling stable on her current meds. I encouraged patient to make a Psychiatry appointment Bipolar 1 disorder, depressed, moderate ([facility]) 10/30/2017 Mild cognitive impairment with [...] Last Assessment & Plan: stable Atrial flutter ([facility]) 02/14/2016 Overview (03/17/2020): Last Assessment [...] to complete this topic Insurance MED REPLACE [facility] MEDICARE MED REPLACE [facility] MEDICARE Advance Directives Documents on File Type Date Recorded Patient Paraeducator Expl anation Advance Directives and Living Will 11/05/2017 9:06 AM POWER OF [employer] SUPERVISOR Advance Directives and Living Will 08/17/2013 ADVANCE DIRECTIVE * DNR (Latest Code Status on File) Date Activated Date Inactivated Comments 03/17/2020 9:43 AM 03/18/2020 1:18 PM * Full Code Date Activated Date Inactivated Comments 10/29/2017 4:12 PM 11/04/2017 4:02 PM Care Teams Ledger Clerk Relationship Specialty Start Date End Date Nan Blair PA [address] [place] [address] PCP - General 04/04/14
--- OUTSIDE RECORDS SUMMARY | 2025-02-09 10:15 | XMS_ITS | Referral Summary ---
Author Organization [facility] Address [address] [place] [address] Care Team Providers Care [employer] Umpire Name Role Phone Jorge Jefferson MD Unavailable [phone] Lizzie Collins MD Unavailable [phone] Freeman Chung MD Unavailable Maribel Andrade MD Unavailable Guy Rosen MD Unavailable Nan Blair Primary Care Provider [phone] Encounters Date Type Department Care Team Description 02/03/2025 Orders Only [facility] Medical [facility] Cardiology [address] [facility] [address] [place] [id number] Kassandra Shannon NP 01/27/2025 1:45 PM CDT Office Visit [facility] Memory Diagnostic [place] [address] 6th [address] [place] [address] Betsy Ryan NP 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) (Primary Dx) 01/13/2025 Orders Only [facility] Scanning, Provider 01/12/2025 Documentation [facility] [address] [facility] Floor [address] [place] [address] Sherly Ivey, CUMULATIVE EFFECTS ANALYST 01/08/2025 Telephone [facility] [address] Floor [address] [place] [address] Harriett Sutherland, RMA 01/04/2025 Telephone [facility] [address] [place] [address] Vivi Patel 01/04/[address] [address] Nan Blair PA 01/04/2025 2:18 PM CDT - 01/04/2025 11:59 PM CDT Hospital Encounter [facility] MRI [facility] [place] [address] 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); Seizure disorder (HCC); Confusion after a seizure Discharge Disposition: Discharge to home or self care 01/04/2025 1:12 PM CDT - 01/04/2025 11:59 PM CDT Hospital Encounter [facility] Cardiac Testing [facility] [place] [address] Seizure disorder (HCC); Confusion after a seizure Discharge Disposition: Discharge to home or self care 11/27/2024 10:00 AM BEVERAGE SERVER Office Visit [address] [address] Nan Blair PA 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) (Primary Dx); Seizure disorder (HCC); Confusion after a seizure; Bipolar 1 disorder, depressed, moderate (HCC); Essential (primary) hypertension 11/19/[address] [facility] [address] [address] Nan Blair PA Medical Question/Miscellane ous [address] [address] Nan Blair PA Medical Question/Miscellane ous from Last 3 Months Allergies Active Allergy Reactions Criticality Noted Date Comments Amoxicillin Unknown 02/02/2019 Codeine Other (See comments),Dizziness,Naus ea And Vomiting,Unknown Low 03/16/2016 Spaced out and sick to stomach Spaced out and sick to stomach confusion, n/v [place] Other (See comments),Unknown Low 02/02/2019 Severe reaction-Kidney [...] daily 30 tablet 3 4 025 Active donepeziL (ARICEPT) 5 mg tablet Take [...] tablet 1 1 025 Discontin ued(Other ) lamoTRIgine (LaMICtal) 25 mg tablet Take one tablet per day for 14 days. Then take one tablet twice per day for 14 days 42 tablet 5 025 Discontin ued(Other ) Active Problems Problem Noted Date Diagnosed Date Seizure disorder 11/27/2024 Assessment & Plan (11/27/2024 1:17 PM BEVERAGE SERVER): Patient had a seizure 1 year ago. [...] 10/12/2020 Assessment & Plan (11/27/2024 10:55 AM BEVERAGE SERVER): Progressing. Patient will continue Namenda and Aricept. [...] ASL Assessment & Plan (11/15/2021 10:29 AM BEVERAGE SERVER): Worsening. Patient will continue current meds. Followed [...] is not addictive. Agree with move to [facility]. Continue to work with Dr. Andrade, counselor and cognitive stimulation therapist. Assessment & Plan (10/12/2020 11:27 AM BEVERAGE SERVER): Followed by neurology, unchanged Class 1 obesity due to exces s calories with serious comorbidity and body mass index (BMI) of 31.0 to 31.9 in adult 08/26/2019 Assessment & Plan (05/07/2023 2:29 PM CDT): Reviewed BMI Focus on healthy diet options Work on healthy changes Assessment & Plan (11/15/2021 10:28 AM BEVERAGE SERVER): Uncontrolled. Goal of BMI is less than [...] month Assessment & Plan (10/12/2020 11:26 AM BEVERAGE SERVER): Educated patient on healthy diet/exercise plan. Exercise [...] sugar. Assessment & Plan (08/26/2019 1:23 PM BEVERAGE SERVER): Educated patient on healthy diet/exercise plan. Exercise [...] 05/25/2020 Assessment & Plan (11/15/2021 10:28 AM BEVERAGE SERVER): PMH/MHA: 11/15/2021 Last pap:2012 Last mammogram: 02/04/2018 (requested report) Last dexa:02/04/2018, ordered Last colonoscopy/cologuard:08/2015, 12/16/2018 repeat 2023 Last Hep C:04/2017 Last tdap:04/08/2013 Last Prevnar/pneumovax: 05/18/2015 (13) 07/18/2011 (23) Last Shingrix: (zoster 10/07/2012) 10/16/2018, 07/03/2018 Last eye exam: 05/25/2020 Assessment & Plan (10/12/2020 11:27 AM BEVERAGE SERVER): PMH/MHA: 10/12/2020 Last pap:2013 Last mammogram: 02/04/2018 Last dexa:02/04/2018 Last colonoscopy/cologuard:08/2015, 12/16/2018 repeat 2023 Last Hep C:04/2017 Last tdap:04/08/2013 Last Prevnar/pneumovax: 05/18/2015 (13) 07/18/2011 (23) Last Shingrix: (zoster 10/07/2012) 10/16/2018, 07/03/2018 Last eye exam: 05/25/2020 Assessment & Plan (08/26/2019 1:10 PM BEVERAGE SERVER): PMH/MHA: 08/26/2019 Last pap:2013 Last mammogram: 02/04/2018 Last dexa:02/04/2018 Last colonoscopy/cologuard:08/2015, 12/16/2018 repeat 2023 Last Hep C:04/2017 Last tdap:04/08/2013 Last Prevnar/pneumovax: 05/18/2015 (13) 07/18/2011 (23) Last Shingrix: (zoster 10/07/2012) 10/16/2018, 07/03/2018 Last eye exam: due Recurrent major depressive disorder, in partial remission 10/13/2018 Assessment & Plan (05/07/2023 3:58 PM CDT): Chronic. Continue follow-up psychiatry. Assessment & Plan (11/15/2021 10:29 AM BEVERAGE SERVER): Stable continue meds Assessment & Plan (10/12/2020 11:28 AM BEVERAGE SERVER): Stable, followed by Psychiatry Assessment & Plan (05/23/2020 3:09 PM CDT): Strongly recommend consistent care and follow-up with [facility] Psychiatry to evaluate and treat [...] psychiatry Assessment & Plan (10/16/2019 1:12 PM BEVERAGE SERVER): Uncontrolled. Assessment & Plan (10/14/2019 1:02 PM BEVERAGE SERVER): Uncontrolled. I really feel like pt is very lonely and she needs daily interaction with other people. Encouraged pt to consider a jail center to open her world to new hobbies, interactions with other. Need referral to psychiatrist. Need to see counselor within the next 2 wks. Memory issues may be related to depression. Assessment & Plan (08/26/2019 1:24 PM BEVERAGE SERVER): Referral to psychiatrist Generalized anxiety disorder 03/12/2018 Assessment & Plan (05/07/2023 3:57 PM CDT): Chronic. Continue follow-up with psychiatrist. Assessment & Plan (11/15/2021 10:28 AM BEVERAGE SERVER): Stable, continue current meds Assessment & Plan (10/12/2020 11:26 AM BEVERAGE SERVER): Stable followed by Psychiatry Assessment & Plan (02/19/2020 3:30 PM CDT): Stable Assessment & Plan (11/18/2019 4:05 PM BEVERAGE SERVER): Patient will hold lorazepam at this time. She is not having any anxiety Assessment & Plan (10/14/2019 1:03 PM BEVERAGE SERVER): Referral psychiatrist Assessment & Plan (08/26/2019 1:22 PM BEVERAGE SERVER): Stable Bipolar 1 disorder, depressed, moderate 11/06/19 18 Assessment & Plan (11/27/2024 1:17 PM BEVERAGE SERVER): Chronic, stable, patient will continue her medications for Alzheimer's to include Aricept and Namenda. No additional meds needed at this time Assessment & Plan (05/07/2023 3:57 PM CDT): Chronic. Continue follow-up with psychiatrist. Assessment & Plan (11/15/2021 10:27 AM BEVERAGE SERVER): Stable Assessment & Plan (10/12/2020 11:26 AM BEVERAGE SERVER): Stable followed by Psychiatry Assessment & Plan (05/02/2020 2:11 PM CDT): Follow with psychiatry Assessment & Plan (02/19/2020 3:30 PM CDT): Patient has not made appointment with a psychiatrist. Patient reports she is feeling stable on her current meds. I encouraged patient to make a Psychiatry appointment Assessment & Plan (11/18/2019 4:05 PM BEVERAGE SERVER): Uncontrolled. Increase Wellbutrin to 300 mg. Patient needs to see a psychiatrist. Patient given a list of psychiatrist in the area. I spoke with her jaspreeton not too long ago about patient needing to see the psychiatrist and also patient needing to consider moving into some type of jail center to have interactions with other people Assessment & Plan (10/16/2019 3:21 PM BEVERAGE SERVER): Uncontrolled. Pt does not have a psychiatrist [...] [facility] in [place]. Patient's son will be contacting his brother and they will be deciding what to do in the next day or so. Patient will be monitor closely over the weekend by Papo. Assessment & Plan (10/14/2019 1:03 PM BEVERAGE SERVER): Uncontrolled, referral to psychiatrist. Assessment & Plan (08/26/2019 1:22 PM BEVERAGE SERVER): Depressed, need to see psychiatry for medication adjustment. Essential (primary) hypertension 08/15/2017 Assessment & Plan (11/27/2024 2:03 PM BEVERAGE SERVER): Episodes of hypotension. We are going to hold amlodipine. We are going to have [facility] check her blood pressure daily and report numbers in 1 week. Assessment & Plan (05/07/2023 3:57 PM CDT): Chronic and controlled without medication. Continue to monitor. Assessment & Plan (11/15/2021 10:28 AM BEVERAGE SERVER): Stable, continue current meds Assessment & Plan (10/12/2020 11:26 AM BEVERAGE SERVER): Stable continue meds Assessment & Plan (02/19/2020 3:30 PM CDT): Stable Assessment & Plan (11/18/2019 4:05 PM BEVERAGE SERVER): Stable continue meds Assessment & Plan (08/26/2019 1:22 PM BEVERAGE SERVER): Stable, continue current meds Primary osteoarthritis of right knee 08/15/2017 Assessment & Plan (05/07/2023 2:31 PM CDT): Continue Tylenol as needed for pain. Assessment & Plan (11/15/2021 10:29 AM BEVERAGE SERVER): Patient takes Tylenol for pain. Assessment & Plan (10/12/2020 11:28 AM BEVERAGE SERVER): Uncontrolled. Patient will hopefully get to start physical therapy soon once her insurance has been reinstated. Patient may also need to see Ortho in the near future Assessment & Plan (08/26/2019 1:24 PM BEVERAGE SERVER): stable Unsteady gait 11/09/2016 Assessment & Plan (05/07/2023 3:58 PM CDT): Completed physical therapy. No recent falls. Assessment & Plan (11/15/2021 10:29 AM BEVERAGE SERVER): Recommend physical therapy. Recommend using a cane Assessment & Plan (10/12/2020 11:29 AM BEVERAGE SERVER): Uncontrolled. Patient is doing okay with her [...] daily. Assessment & Plan (08/26/2019 1:24 PM BEVERAGE SERVER): Use cane at all times, Recommend PT. Pt will consider that. Assessment & Plan (02/02/2019 11:25 AM CDT): Order physical therapy Glucose intolerance (impaired glucose tolerance) 09/03/2016 Assessment & Plan (05/07/2023 3:57 PM CDT): Diet controlled. Labs ordered today. Assessment & Plan (11/15/2021 10:28 AM BEVERAGE SERVER): Diet controlled, requested lab results Assessment & Plan (10/12/2020 11:27 AM BEVERAGE SERVER): Stable, diet controlled Assessment & Plan (02/19/2020 3:30 PM CDT): Diet controlled check labs Assessment & Plan (08/26/2019 1:23 PM BEVERAGE SERVER): Diet controlled, due for labs Obstructive sleep apnea 08/14/2016 Assessment & Plan (05/07/2023 2:30 PM CDT): Not on CPAP. Assessment & Plan (11/15/2021 10:29 AM BEVERAGE SERVER): Stable Assessment & Plan (10/12/2020 11:28 AM BEVERAGE SERVER): Stable, no CPAP machine at this time Assessment & Plan (08/26/2019 1:13 PM BEVERAGE SERVER): No cpap machine Other allergic rhinitis 08/14/2016 Assessment & Plan (05/07/2023 2:30 PM CDT): Continue current management. Assessment & Plan (11/15/2021 10:29 AM BEVERAGE SERVER): Stable Assessment & Plan (10/12/2020 11:28 AM BEVERAGE SERVER): Stable p.r.n. meds Assessment & Plan (08/26/2019 1:23 PM BEVERAGE SERVER): stable Atrial flutter 02/14/2016 Overview (02/08/2025): Last Assessment & Plan: Stable Last Assessment & Plan: Stable Other specified hypothyroidism 12/30/2015 Assessment & Plan (05/07/2023 2:30 PM CDT): Continue current dose of levothyroxine. Due for TSH. Assessment & Plan (11/15/2021 10:29 AM BEVERAGE SERVER): Stable, continue meds, requested lab Assessment & Plan (10/12/2020 11:28 AM BEVERAGE SERVER): Stable continue meds Assessment & Plan (02/19/2020 3:31 PM CDT): Check labs Assessment & Plan (08/26/2019 1:24 PM BEVERAGE SERVER): Stable, check labs Mixed hyperlipidemia 12/30/2015 Assessment & Plan (05/07/2023 2:30 PM CDT): Diet controlled. Will continue to monitor lipid panel. Assessment & Plan (11/15/2021 10:29 AM BEVERAGE SERVER): Diet controlled. Requested lab Assessment & Plan (10/12/2020 11:28 AM BEVERAGE SERVER): Stable, patient is not on meds at this time Assessment & Plan (02/19/2020 3:31 PM CDT): Check labs Assessment & Plan (08/26/2019 1:23 PM BEVERAGE SERVER): Check labs Vitamin D deficiency 12/30/2015 Assessment & Plan (05/07/2023 2:31 PM CDT): Continue vitamin-D supplement. Assessment & Plan (11/15/2021 10:30 AM BEVERAGE SERVER): Stable continue vitamin Assessment & Plan (10/12/2020 11:29 AM BEVERAGE SERVER): Stable continue vitamin Assessment & Plan (02/19/2020 3:31 PM CDT): Check labs Assessment & Plan (08/26/2019 1:25 PM BEVERAGE SERVER): Continue vit d Resolved Problems Problem Noted Date Diagnosed Date Resolved Date Unspecified mood (affective) disorder ([facility]) 03/21/2020 11/15/2021 Assessment & Plan (10/12/2020 11:29 AM BEVERAGE SERVER): Stable followed by Psychiatry Assessment & Plan [...] 2 Assessment & Plan (10/12/2020 11:28 AM BEVERAGE SERVER): Stable continue meds Assessment & Plan (11/18/2019 4:05 PM BEVERAGE SERVER): With patient's change in urinary symptoms I would like to hold the VESIcare and see how she does. UA in office today was negative Assessment & Plan (08/26/2019 1:24 PM BEVERAGE SERVER): Stable, continue meds Mild neurocognitive disorder 12/20/2017 [...] 2019 Assessment & Plan (10/14/2019 1:03 PM BEVERAGE SERVER): Referral to [facility]. Scores show mild decline. Assessment & Plan (08/26/2019 1:23 PM BEVERAGE SERVER): Need to rtc for memory testing. 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 10/12/2020 Assessment & Plan (08/26/2019 1:25 PM BEVERAGE SERVER): Stable History of rhabdomyolysis 08/14/2016 Atrial flutter (CMS/HCC) 02/14/201606/2022 Assessment & Plan (10/12/2020 11:26 AM BEVERAGE SERVER): Stable Assessment & Plan (02/19/2020 3:30 PM CDT): Stable Assessment & Plan (08/26/2019 1:22 PM BEVERAGE SERVER): Stable followed by cardiology Immunizations Immunization Administration [...] on file Legal Sex Female 1:09 AM BEVERAGE SERVER Gender Identity Female 10/05/2020 10:15 AM BEVERAGE SERVER Sexual Orientation Straight 10/05/2020 10 :15 AM BEVERAGE SERVER 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 Not on file Not on file Last Filed Vital Signs Vital Sign Reading Time Taken Comments Blood Pressure 108/74 01/27/2025 1:38 PM CDT Pulse 75 01/27/2025 1:38 PM CDT Temperature 36.8 C (98.3 F) 01/27/2025 1:38 PM CDT Respiratory Rate 16 11/27/2024 10:05 AM BEVERAGE SERVER Oxygen Saturation 98% 01/27/2025 1:38 PM CDT Inhaled Oxygen Concentration - - Weight 88.2 kg (194 lb 8 oz) 01/27/2025 1:38 PM CDT Height 166.4 cm (5' 5.5 ) 01/27/2025 1:38 PM CDT Body Mass Index 31.87 01/27/2025 1:38 PM CDT Plan of Treatment Not on file Procedures Procedure Name Priority Date/Time Associated Diagnosis Comments CARDIOLOGY DOCUMENT SCAN Routine 02/02/2025 3:20 PM CDT CARDIOLOGY DOCUMENT SCAN Routine 02/01/2025 3:17 PM CDT SCAN - NEUROLOGY 01/13/2025 4:59 PM CDT MRI BRAIN WO CONTRAST Schedule Routine, Read Routine (OP Routine) 01/04/2025 3:46 PM CDT 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) Seizure disorder (HCC) Confusion after a seizure DEXA AXIAL SKELETON BONE DENSITY 1 OR MORE SITES Schedule Routine, Read Routine (OP Routine) 05/07/2022 12:52 PM CDT Encounter for screening for osteoporosis Menopause present COLONOSCOPY Routine 12/16/2018 MAMMOGRAPHY Routine 02/04/2018 HEPATITIS C ANTIBODY Routine 04/24/2017 11:05 AM CDT from Last 3 Months or Most Recently Relevant to Health Maintenance Results * Cardiology Document Scan (02/02/2025 3:20 PM CDT) Anatomical Region Laterality Modality Other Kassandra Shannon NP CV CARDIAC SERVICES PROCEDUR ES Final Result * Cardiology Document Scan (02/01/2025 3:17 PM CDT) Anatomical Region Laterality Modality Other Kassandra Shannon NP CV CARDIAC SERVICES PROCEDUR ES Final Result * SCAN - NEUROLOGY (01/13/2025 4:59 PM [...] diffuse cerebral and cerebellar parenchymal volume loss. Fhqir-olxnmno-xmfk-left middle cranial fossa arachnoid cyst or underlying [...] signed by Alex SALCEDO T: Report ID: [id number] Reading Location: [place] [address] Procedure Note Alex Ashton, DO - 01/05/2025 [...] diffuse cerebral and cerebellar parenchymal volume loss. Ykwak-thrxpoo-pwhw-left middle cranial fossa arachnoid cyst or underlyingmore [...] signed by Alex SALCEDO T: Report ID: [id number] Reading Location: [place] [address] Nan RILEY [facility] [place] PROCEDURES Final Resul t * Dexa Axial Skeleton Bone Density 1 or 2 Site (05/07/2022 12:52 PM CDT) Anatomical Region Laterality Modality Body N/A Mammography 05/07/2022 1:53 PM CDT Narrative 05/07/2022 1:54 PM CDT EXAM DESCRIPTION: DEXA AXIAL SKELETON BONE DENSITY 1 OR MORE SITES REASON FOR STUDY: 71 y/o year old F with given history of screening. 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 Dissimilar scan types or analysis methods precludes assessment for calculating a significant change. FINDINGS: AP LUMBAR SPINE L1-L4: Total BMD is 1.017 g/cm2 T-score is -0.3 LEFT HIP: Total BMD is 0.752 g/cm2 T-score is -1.6 Femoral neck BMD is 0.638 g/cm2 T-score is -1.9 FRAX: 10 year risk for a major osteoporotic fracture is 11 %, 10 year risk for a hip fracture is 2.1 % IMPRESSION: Low bone mass REFERENCE: Bone mineral density: Normal (T-score above or = -1.0) Low bone mass (T-score between -1.0 and -2.5) replaces the previously used term osteopenia Osteoporosis (T-score = or below -2.5) Medical evaluation for secondary causes of low bone mineral density may be appropriate. FRAX is a World Health Organization validated fracture risk assessment tool that calculates a person's 10 year probability of a major osteoporosis related fracture and hip fracture. According to the National Osteoporosis Foundation guidelines, postmenopausal women and men age 50 or older with low bone mass and a 10 year probability of a major osteoporosis related fracture = or greater than 20% or a 10 year probability of a hip fracture = or greater than 3% should be considered for treatment. For further information, including treatment recommendations, please refer to the 2013 ISCD Official Positions (http://www.iscd.org) and the NOF's Clinician's Guide to Prevention and Treatment of Osteoporosis (http://www.nof.org/professionals/clinical-guidelines) THIS IS AN ELECTRONICALLY VERIFIED FINAL REPORT 05/07/2022 1:54 PM - Electronically signed by Lanette Gloria M.D. TB: TB Report ID: [id number] Reading Location: [id number] Procedure Note MoonLanette MD - 05/07/2022 EXAM DESCRIPTION: DEXA AXIAL SKELETON BONE DENSITY 1 OR MORE SITES REASON FOR STUDY: 71 y/o year old F with given history ofscreening. 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 Dissimilar scan types or analysis methods precludes assessment for calculating a significant change. FINDINGS: AP LUMBAR SPINE L1-L4: Total BMD is 1.017 g/cm2 T-score is -0.3 LEFT HIP: Total BMD is 0.752 g/cm2 T-score is -1.6 Femoral neck BMD is 0.638 g/cm2 T-score is -1.9 FRAX: 10 year risk for a major osteoporotic fracture is 11 %, 10 year risk for ahip fracture is 2.1 % IMPRESSION: Low bone mass REFERENCE: Bone mineral density: Normal (T-score above or = -1.0) Low bone mass (T-score between -1.0 and -2.5) replaces thepreviously used term osteopenia Osteoporosis (T-score = or below -2.5) Medical evaluation for secondary causes of low bone mineral density may be appropriate. FRAX is a World Health Organization validated fracture risk assessmenttool that calculates a person's 10 year probability of a major osteoporosisrelated fracture and hip fracture. According to the National OsteoporosisFoundation guidelines, postmenopausal women and men age 50 or older with low bonemass and a 10 year probability of a major osteoporosis related fracture = or greater than 20% or a 10 year probability of a hip fracture = or greaterthan 3% should be considered for treatment. For further information, including treatment recommendations, please referto the 2013 ISCD Official Positions (http://www.iscd.org) and the NOF's Clinician's Guide to Prevention and Treatment of Osteoporosis (http://www.nof.org/professionals/clinical-guidelines) THIS IS AN ELECTRONICALLY VERIFIED FINAL REPORT 05/07/2022 1:54 PM - Electronically signed by Lanette Gloria M.D. TB: TB Report ID: [id number] Reading Location: [place] [address] Nan RILEY IMG DXA PROCEDURES Final Resul t * COLONOSCOPY (12/16/2018) [facility] Colonoscopy Abnormal Historical Provider MD HEALTH MAINTENANCE Final Result * MAMMOGRAPHY (02/04/2018) Mammogram Normal Historical Provider MD HEALTH MAINTENANCE Final Result * Hepatitis C antibody (04/24/2017 11:05 AM CDT) Pathologist [facility] Hep C Ab NONREACT NONREACTIVE 04/24/2017 8:34 PM CDT [facility] HISTORICAL RESULTS Comment: Siemens CentaurXP using NIKUNJ (chemiluminescent immunoassay) [...] MICROBIOLOGY - GENERAL ORD ERABLES Final Result [facility] HISTORICAL RESULTS from Last 3 Months or Most Recently Relevant to Health Maintenance Insurance [place], [place] [id number] MEDICARE [facility] MEDICARE ADVANTAGE [facility] MEDICARE ADVANTAGE [employer] MEDICARE ADVANTAGE Advance Directives For more information, please contact: [phone] Documents on File Type Date Recorded Patient Technical Solution Architect Expl anation ADVANCE DIRECTIVE 12/07/2020 3:24 PM DNR ADVANCE DIRECTIVE 09/25/2013 12:00 AM POW ER OF TOOL CLERK FINANCIAL/MEDICAL Care Teams [employer] Umpire Relationship Specialty Start Date End Date Nan Blair PA [address] [place] [address] PCP - General Family Medicine 07/03/22 Jorge Jefferson MD [address] [place] [address] Consulting Physician Family Medicine 03/09/19 Lizzie Collins MD [address] [facility] [place] [address] Fundraising Director Cardiology 05/18/19 Freeman Chung MD [address] [place] [address] Referring Physician Geriatric Psychiatry 06/09/20 Maribel Andrade MD [address] [address] Consulting Physician Anesthesiology 12/31/20 Guy Rosen MD [address] [place] [address] Psychiatry 01/11/22
--- OUTSIDE RECORDS SUMMARY | 2025-02-09 10:15 | XMS_ITS | Clinical Summary ---
Author Organization [facility] Address [address] [place] [address] Care Team Providers Care Laborer [employer] Name Role Phone Jorge Jefferson MD Unavailable [phone] Lizzie Collins MD Unavailable [phone] Freeman Chung MD Unavailable [phone] Maribel Andrade MD Unavailable [phone] Guy Rosen MD Unavailable Nan Blair Primary Care Provider [phone] Allergies Active Allergy Reactions Criticality Noted Date Comments Amoxicillin Unknown 02/02/2019 Codeine Other (See comments),Dizziness,Naus ea And Vomiting,Unknown Low 03/16/2016 Spaced out and sick to stomach Spaced out and sick to stomach confusion, n/v Arona Other (See comments),Unknown Low 02/02/2019 Severe reaction-Kidney [...] 11/27/2024 Assessment & Plan (11/27/2024 1:17 PM NON DESTRUCTIVE TESTING SUPERVISOR): Patient had a seizure 1 year ago. [...] 10/12/2020 Assessment & Plan (11/27/2024 10:55 AM NON DESTRUCTIVE TESTING SUPERVISOR): Progressing. Patient will continue Namenda and Aricept. [...] ASL Assessment & Plan (11/15/2021 10:29 AM NON DESTRUCTIVE TESTING SUPERVISOR): Worsening. Patient will continue current meds. Followed [...] is not addictive. Agree with move to [facility]. Continue to work with Dr. Andrade, counselor and cognitive stimulation therapist. Assessment & Plan (10/12/2020 11:27 AM NON DESTRUCTIVE TESTING SUPERVISOR): Followed by neurology, unchanged Class 1 obesity due to exces s calories with serious comorbidity and body mass index (BMI) of 31.0 to 31.9 in adult 08/26/2019 Assessment & Plan (05/07/2023 2:29 PM CDT): Reviewed BMI Focus on healthy diet options Work on healthy changes Assessment & Plan (11/15/2021 10:28 AM NON DESTRUCTIVE TESTING SUPERVISOR): Uncontrolled. Goal of BMI is less than [...] month Assessment & Plan (10/12/2020 11:26 AM NON DESTRUCTIVE TESTING SUPERVISOR): Educated patient on healthy diet/exercise plan. Exercise [...] sugar. Assessment & Plan (08/26/2019 1:23 PM NON DESTRUCTIVE TESTING SUPERVISOR): Educated patient on healthy diet/exercise plan. Exercise [...] 05/25/2020 Assessment & Plan (11/15/2021 10:28 AM NON DESTRUCTIVE TESTING SUPERVISOR): PMH/MHA: 11/15/2021 Last pap:2012 Last mammogram: 02/04/2018 (requested report) Last dexa:02/04/2018, ordered Last colonoscopy/cologuard:08/2015, 12/16/2018 repeat 2023 Last Hep C:04/2017 Last tdap:04/08/2013 Last Prevnar/pneumovax: 05/18/2015 (13) 07/18/2011 (23) Last Shingrix: (zoster 10/07/2012) 10/16/2018, 07/03/2018 Last eye exam: 05/25/2020 Assessment & Plan (10/12/2020 11:27 AM NON DESTRUCTIVE TESTING SUPERVISOR): PMH/MHA: 10/12/2020 Last pap:2012 Last mammogram: 02/04/2018 Last dexa:02/04/2018 Last colonoscopy/cologuard:08/2015, 12/16/2018 repeat 2023 Last Hep C:04/2017 Last tdap:04/08/2013 Last Prevnar/pneumovax: 05/18/2015 (13) 07/18/2011 (23) Last Shingrix: (zoster 10/07/2012) 10/16/2018, 07/03/2018 Last eye exam: 05/25/2020 Assessment & Plan (08/26/2019 1:10 PM NON DESTRUCTIVE TESTING SUPERVISOR): PMH/MHA: 08/26/2019 Last pap:2013 Last mammogram: 02/04/2018 Last dexa:02/04/2018 Last colonoscopy/cologuard:08/2015, 12/16/2018 repeat 2023 Last Hep C:04/2017 Last tdap:04/08/2013 Last Prevnar/pneumovax: 05/18/2015 (13) 07/18/2011 (23) Last Shingrix: (zoster 10/07/2012) 10/16/2018, 07/03/2018 Last eye exam: due Recurrent major depressive disorder, in partial remission 10/13/2018 Assessment & Plan (05/07/2023 3:58 PM CDT): Chronic. Continue follow-up psychiatry. Assessment & Plan (11/15/2021 10:29 AM NON DESTRUCTIVE TESTING SUPERVISOR): Stable continue meds Assessment & Plan (10/12/2020 11:28 AM NON DESTRUCTIVE TESTING SUPERVISOR): Stable, followed by Psychiatry Assessment & Plan (05/23/2020 3:09 PM CDT): Strongly recommend consistent care and follow-up with [facility] Psychiatry to evaluate and treat mood [...] psychiatry Assessment & Plan (10/16/2019 1:12 PM NON DESTRUCTIVE TESTING SUPERVISOR): Uncontrolled. Assessment & Plan (10/14/2019 1:02 PM NON DESTRUCTIVE TESTING SUPERVISOR): Uncontrolled. I really feel like pt is very lonely and she needs daily interaction with other people. Encouraged pt to consider a halfway center to open her world to new hobbies, interactions with other. Need referral to psychiatrist. Need to see counselor within the next 2 wks. Memory issues may be related to depression. Assessment & Plan (08/26/2019 1:24 PM NON DESTRUCTIVE TESTING SUPERVISOR): Referral to psychiatrist Generalized anxiety disorder 03/12/2018 Assessment & Plan (05/07/2023 3:57 PM CDT): Chronic. Continue follow-up with psychiatrist. Assessment & Plan (11/15/2021 10:28 AM NON DESTRUCTIVE TESTING SUPERVISOR): Stable, continue current meds Assessment & Plan (10/12/2020 11:26 AM NON DESTRUCTIVE TESTING SUPERVISOR): Stable followed by Psychiatry Assessment & Plan (02/19/2020 3:30 PM CDT): Stable Assessment & Plan (11/18/2019 4:05 PM NON DESTRUCTIVE TESTING SUPERVISOR): Patient will hold lorazepam at this time. She is not having any anxiety Assessment & Plan (10/14/2019 1:03 PM NON DESTRUCTIVE TESTING SUPERVISOR): Referral psychiatrist Assessment & Plan (08/26/2019 1:22 PM NON DESTRUCTIVE TESTING SUPERVISOR): Stable Bipolar 1 disorder, depressed, moderate 11/06/19 18 Assessment & Plan (11/27/2024 1:17 PM NON DESTRUCTIVE TESTING SUPERVISOR): Chronic, stable, patient will continue her medications for Alzheimer's to include Aricept and Namenda. No additional meds needed at this time Assessment & Plan (05/07/2023 3:57 PM CDT): Chronic. Continue follow-up with psychiatrist. Assessment & Plan (11/15/2021 10:27 AM NON DESTRUCTIVE TESTING SUPERVISOR): Stable Assessment & Plan (10/12/2020 11:26 AM NON DESTRUCTIVE TESTING SUPERVISOR): Stable followed by Psychiatry Assessment & Plan (05/02/2020 2:11 PM CDT): Follow with psychiatry Assessment & Plan (02/19/2020 3:30 PM CDT): Patient has not made appointment with a psychiatrist. Patient reports she is feeling stable on her current meds. I encouraged patient to make a Psychiatry appointment Assessment & Plan (11/18/2019 4:05 PM NON DESTRUCTIVE TESTING SUPERVISOR): Uncontrolled. Increase Wellbutrin to 300 mg. Patient needs to see a psychiatrist. Patient given a list of psychiatrist in the area. I spoke with her jaspreeton not too long ago about patient needing to see the psychiatrist and also patient needing to consider moving into some type of halfway center to have interactions with other people Assessment & Plan (10/16/2019 3:21 PM NON DESTRUCTIVE TESTING SUPERVISOR): Uncontrolled. Pt does not have a psychiatrist [...] consider looking into inpatient psychiatric care at [facility] in [place]. Patient's son will be contacting his brother and they will be deciding what to do in the next day or so. Patient will be monitor closely over the weekend by [facility]. Assessment & Plan (10/14/2019 1:03 PM NON DESTRUCTIVE TESTING SUPERVISOR): Uncontrolled, referral to psychiatrist. Assessment & Plan (08/26/2019 1:22 PM NON DESTRUCTIVE TESTING SUPERVISOR): Depressed, need to see psychiatry for medication adjustment. Essential (primary) hypertension 08/15/2017 Assessment & Plan (11/27/2024 2:03 PM NON DESTRUCTIVE TESTING SUPERVISOR): Episodes of hypotension. We are going to hold amlodipine. We are going to have [facility] living check her blood pressure daily and report numbers in 1 week. Assessment & Plan (05/07/2023 3:57 PM CDT): Chronic and controlled without medication. Continue to monitor. Assessment & Plan (11/15/2021 10:28 AM NON DESTRUCTIVE TESTING SUPERVISOR): Stable, continue current meds Assessment & Plan (10/12/2020 11:26 AM NON DESTRUCTIVE TESTING SUPERVISOR): Stable continue meds Assessment & Plan (02/19/2020 3:30 PM CDT): Stable Assessment & Plan (11/18/2019 4:05 PM NON DESTRUCTIVE TESTING SUPERVISOR): Stable continue meds Assessment & Plan (08/26/2019 1:22 PM NON DESTRUCTIVE TESTING SUPERVISOR): Stable, continue current meds Primary osteoarthritis of right knee 08/15/2017 Assessment & Plan (05/07/2023 2:31 PM CDT): Continue Tylenol as needed for pain. Assessment & Plan (11/15/2021 10:29 AM NON DESTRUCTIVE TESTING SUPERVISOR): Patient takes Tylenol for pain. Assessment & Plan (10/12/2020 11:28 AM NON DESTRUCTIVE TESTING SUPERVISOR): Uncontrolled. Patient will hopefully get to start physical therapy soon once her insurance has been reinstated. Patient may also need to see Ortho in the near future Assessment & Plan (08/26/2019 1:24 PM NON DESTRUCTIVE TESTING SUPERVISOR): stable Unsteady gait 11/09/2016 Assessment & Plan (05/07/2023 3:58 PM CDT): Completed physical therapy. No recent falls. Assessment & Plan (11/15/2021 10:29 AM NON DESTRUCTIVE TESTING SUPERVISOR): Recommend physical therapy. Recommend using a cane Assessment & Plan (10/12/2020 11:29 AM NON DESTRUCTIVE TESTING SUPERVISOR): Uncontrolled. Patient is doing okay with her [...] daily. Assessment & Plan (08/26/2019 1:24 PM NON DESTRUCTIVE TESTING SUPERVISOR): Use cane at all times, Recommend PT. Pt will consider that. Assessment & Plan (02/02/2019 11:25 AM CDT): Order physical therapy Glucose intolerance (impaired glucose tolerance) 09/03/2016 Assessment & Plan (05/07/2023 3:57 PM CDT): Diet controlled. Labs ordered today. Assessment & Plan (11/15/2021 10:28 AM NON DESTRUCTIVE TESTING SUPERVISOR): Diet controlled, requested lab results Assessment & Plan (10/12/2020 11:27 AM NON DESTRUCTIVE TESTING SUPERVISOR): Stable, diet controlled Assessment & Plan (02/19/2020 3:30 PM CDT): Diet controlled check labs Assessment & Plan (08/26/2019 1:23 PM NON DESTRUCTIVE TESTING SUPERVISOR): Diet controlled, due for labs Obstructive sleep apnea 08/14/2016 Assessment & Plan (05/07/2023 2:30 PM CDT): Not on CPAP. Assessment & Plan (11/15/2021 10:29 AM NON DESTRUCTIVE TESTING SUPERVISOR): Stable Assessment & Plan (10/12/2020 11:28 AM NON DESTRUCTIVE TESTING SUPERVISOR): Stable, no CPAP machine at this time Assessment & Plan (08/26/2019 1:13 PM NON DESTRUCTIVE TESTING SUPERVISOR): No cpap machine Other allergic rhinitis 08/14/2016 Assessment & Plan (05/07/2023 2:30 PM CDT): Continue current management. Assessment & Plan (11/15/2021 10:29 AM NON DESTRUCTIVE TESTING SUPERVISOR): Stable Assessment & Plan (10/12/2020 11:28 AM NON DESTRUCTIVE TESTING SUPERVISOR): Stable p.r.n. meds Assessment & Plan (08/26/2019 1:23 PM NON DESTRUCTIVE TESTING SUPERVISOR): stable Atrial flutter 02/14/2016 Overview (02/08/2025): Last Assessment & Plan: Stable Last Assessment & Plan: Stable Other specified hypothyroidism 12/30/2015 Assessment & Plan (05/07/2023 2:30 PM CDT): Continue current dose of levothyroxine. Due for TSH. Assessment & Plan (11/15/2021 10:29 AM NON DESTRUCTIVE TESTING SUPERVISOR): Stable, continue meds, requested lab Assessment & Plan (10/12/2020 11:28 AM NON DESTRUCTIVE TESTING SUPERVISOR): Stable continue meds Assessment & Plan (02/19/2020 3:31 PM CDT): Check labs Assessment & Plan (08/26/2019 1:24 PM NON DESTRUCTIVE TESTING SUPERVISOR): Stable, check labs Mixed hyperlipidemia 12/30/2015 Assessment & Plan (05/07/2023 2:30 PM CDT): Diet controlled. Will continue to monitor lipid panel. Assessment & Plan (11/15/2021 10:29 AM NON DESTRUCTIVE TESTING SUPERVISOR): Diet controlled. Requested lab Assessment & Plan (10/12/2020 11:28 AM NON DESTRUCTIVE TESTING SUPERVISOR): Stable, patient is not on meds at this time Assessment & Plan (02/19/2020 3:31 PM CDT): Check labs Assessment & Plan (08/26/2019 1:23 PM NON DESTRUCTIVE TESTING SUPERVISOR): Check labs Vitamin D deficiency 12/30/2015 Assessment & Plan (05/07/2023 2:31 PM CDT): Continue vitamin-D supplement. Assessment & Plan (11/15/2021 10:30 AM NON DESTRUCTIVE TESTING SUPERVISOR): Stable continue vitamin Assessment & Plan (10/12/2020 11:29 AM NON DESTRUCTIVE TESTING SUPERVISOR): Stable continue vitamin Assessment & Plan (02/19/2020 3:31 PM CDT): Check labs Assessment & Plan (08/26/2019 1:25 PM NON DESTRUCTIVE TESTING SUPERVISOR): Continue vit d Resolved Problems Problem Noted Date Diagnosed Date Resolved Date Unspecified mood (affective) disorder ([facility]) 03/21/2020 11/15/2021 Assessment & Plan (10/12/2020 11:29 AM NON DESTRUCTIVE TESTING SUPERVISOR): Stable followed by Psychiatry Assessment & Plan [...] Decreased appetite 04/14/2018 9 Overactive bladder 03/12/2018 Assessment & Plan (10/12/2020 11:28 AM NON DESTRUCTIVE TESTING SUPERVISOR): Stable continue meds Assessment & Plan (11/18/2019 4:05 PM NON DESTRUCTIVE TESTING SUPERVISOR): With patient's change in urinary symptoms I would like to hold the VESIcare and see how she does. UA in office today was negative Assessment & Plan (08/26/2019 1:24 PM NON DESTRUCTIVE TESTING SUPERVISOR): Stable, continue meds Mild neurocognitive disorder 12/20/2017 [...] 2019 Assessment & Plan (10/14/2019 1:03 PM NON DESTRUCTIVE TESTING SUPERVISOR): Referral to memory clinic at [facility]. Scores show mild decline. Assessment & Plan (08/26/2019 1:23 PM NON DESTRUCTIVE TESTING SUPERVISOR): Need to rtc for memory testing. 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 08/26/2019 Leucocytosis 03/26/2017 08/26/2019 MARTIN (dyspnea on exertion) 12/11/2016 History of IBS 09/03/2016 08/26/2019 History of radiofrequency ab lation procedure for cardiac arrhythmia 09/03/2016 08/26/2019 Vulvar dystrophy 09/03/2016 10/12/2020 Assessment & Plan (08/26/2019 1:25 PM NON DESTRUCTIVE TESTING SUPERVISOR): Stable History of rhabdomyolysis 08/14/2016 Atrial flutter (CMS/HCC) 02/14/201606/2022 Assessment & Plan (10/12/2020 11:26 AM NON DESTRUCTIVE TESTING SUPERVISOR): Stable Assessment & Plan (02/19/2020 3:30 PM CDT): Stable Assessment & Plan (08/26/2019 1:22 PM NON DESTRUCTIVE TESTING SUPERVISOR): Stable followed by cardiology Encounters Date Type Department Care Team Description 02/03/2025 Orders Only [facility] Medical Group Cardiology [address] [place] [address] Kassandra Shannon NP 01/27/2025 1:45 PM CDT Office Visit [facility] Memory Diagnostic Cut Off [address] 6th [address] [place] [id number] Betsy Ryan NP 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) (Primary Dx) 01/13/2025 Orders Only [facility] Scanning, Provider 01/12/2025 Documentation [facility] Memory Diagnostic Cut Off [address] [place] [address] Sherly Ivey, ACCOUNTS PAYABLE ADMINISTRATOR 01/08/[address] [place] [address] Harriett Sutherland, RMA 01/04/2025 2:18 PM CDT - 01/04/2025 11:59 PM CDT Hospital Encounter [facility] MRI [address] [place] [address] 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); Seizure disorder (HCC); Confusion after a seizure Discharge Disposition: Discharge to home or self care 01/04/2025 1:12 PM CDT - 01/04/2025 11:59 PM CDT Hospital Encounter [facility] Cardiac Testing [address] [place] [address] Seizure disorder (HCC); Confusion after a seizure Discharge Disposition: Discharge to home or self care 01/04/[address] [place] [address] Vivi Patel 01/04/[address] [address] Nan Blair PA 11/27/2024 10:00 AM NON DESTRUCTIVE TESTING SUPERVISOR Office Visit [address] [address] Nan Blair PA 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) (Primary Dx); Seizure disorder (HCC); Confusion after a seizure; Bipolar 1 disorder, depressed, moderate (HCC); Essential (primary) hypertension 11/19/[address] [address] Nan Blair PA Medical Question/Miscellane ous [address] [address] Nan Blair PA Medical Question/Miscellane ous from Last 3 Months Immunizations Immunization Administration [...] on file Legal Sex Female 1:09 AM NON DESTRUCTIVE TESTING SUPERVISOR Gender Identity Female 10/05/2020 10:15 AM NON DESTRUCTIVE TESTING SUPERVISOR Sexual Orientation Straight 10/05/2020 10 :15 AM NON DESTRUCTIVE TESTING SUPERVISOR 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 Not on file Not on file Obstetrics History Last Filed Vital Signs Vital Sign Reading Time Taken Comments Blood Pressure 108/74 01/27/2025 1:38 PM CDT Pulse 75 01/27/2025 1:38 PM CDT Temperature 36.8 C (98.3 F) 01/27/2025 1:38 PM CDT Respiratory Rate 16 11/27/2024 10:05 AM NON DESTRUCTIVE TESTING SUPERVISOR Oxygen Saturation 98% 01/27/2025 1:38 PM CDT [...] 12/16/2018, 08/07/2015 Well Visit 65+ 05/07/2024 05/07/2023, 02/0 06/2022, 10/12/2020, Additional history exists Covid-19 Vaccine (2023-11 5 season) 2024 09/13/2023, 04/13/2022, 08/01/2021, Additional [...] Pneumococcal vaccine 65+ Completed 019, 05/18/2015, 07/18/2011 Osteoporosis Screening-Bone Density Scan Discontinued 05/07/2022, 02/04/2018, 02/04/2018, Additional history exists Influenza Vaccine Completed 07/07/2024, , 07/07/2022, Additional [...] diffuse cerebral and cerebellar parenchymal volume loss. Uiwja-wdrgipn-sezj-left middle cranial fossa arachnoid cyst or underlying [...] signed by Alex SALCEDO T: Report ID: [id number] Reading Location: [id number] Procedure Note Alex Ashton, DO - 01/05/2025 EXAM DESCRIPTION: MRI BRAIN WO CONTRAST REASON FOR STUDY: Mental status change, unknown cause, possible seizureand confustion Hx of Seizures and Alzheimer's. No surgery TECHNIQUE: Multiplanar imaging includes non-contrasted T1, T2, FLAIR, and diffusion with ADC map sequences. Additional sequence(s) sensitive WhoSay products. Images stored on PACS. COMPARISON: CT [...] diffuse cerebral and cerebellar parenchymal volume loss. Nbdrm-iaftqdy-vvii-left middle cranial fossa arachnoid cyst or underlyingmore [...] 10:21 AM - Electronically signed by Alex Ashton D.O. AP T: Report ID: [id number] Reading Location: [id number] [facility] MRI PROCEDURES Final Resul t * Dexa Axial Skeleton Bone Density 1 or 2 Site (05/07/2022 12:52 PM CDT) Anatomical Region Laterality Modality Body N/A Mammography 05/07/2022 1:53 PM CDT Narrative 05/07/2022 1:54 PM CDT EXAM DESCRIPTION: DEXA AXIAL SKELETON BONE DENSITY 1 OR MORE SITES REASON FOR STUDY: 71 y/o year old F with given history of screening. Financial Assistance Specialist/Model: Boqii A (S/N [id number]) CLINICAL INFORMATION: Current height: 64 inches Maximum [...] Lanette Gloria M.D. TB: TB Report ID: [id number] Reading Location: [id number] Procedure Note MoonLanette MD - 05/07/2022 EXAM DESCRIPTION: DEXA AXIAL SKELETON BONE DENSITY 1 OR MORE SITES REASON FOR STUDY: 71 y/o year old F with given history ofscreening. Financial Assistance Specialist/Model: HoloQuire A (S/N [id number]) CLINICAL INFORMATION: Current height: 64 inches Maximum [...] Lanette Gloria M.D. TB: TB Report ID: [id number] Reading Location: [place] [address] [facility] DXA PROCEDURES Final Resul t * COLONOSCOPY (12/16/2018) Health system Colonoscopy Abnormal Historical Provider HEALTH MAINTENANCE Final Result * MAMMOGRAPHY (02/04/2018) Health system Mammogram Normal Historical Provider HEALTH MAINTENANCE Final Result * Hepatitis C antibody (04/24/2017 11:05 AM CDT) Hep C Ab NONREACT NONREACTIVE Comment: Siemens NubliaurXP using NIKUNJ (chemiluminescent immunoassay) technology. NONREACTIVE: Antibodies [...] MICROBIOLOGY - GENERAL ORD ERABLES Final Result [facility] HISTORICAL RESULTS from Last 3 Months or Most Recently Relevant to Health Maintenance Insurance [address] [place] [id number] MEDICARE [facility] [place] [address] [facility] [place] [address] [facility] MEDICARE ADVANTAGE Advance Directives For more information, please contact: [phone] Documents on File Type Date Recorded Patient Auto Tester Expl anation ADVANCE DIRECTIVE 12/07/2020 3:24 PM DNR ADVANCE DIRECTIVE 09/25/2013 12:00 AM [facility] ER OF TECHNOLOGY LEAD FINANCIAL/MEDICAL Care Teams Laborer [employer] Relationship Specialty Start Date End Date Nan Blair PA [address] [place] [address] PCP - General Family Medicine 07/03/22 Jorge Jefferson MD [address] [place] [address] Consulting Physician Family Medicine 03/09/19 Lizzie Collins MD [address] [address] Rn Clinical Review Cardiology 05/18/19 Freeman Chung MD [address] [place] [address] Referring Physician Geriatric Psychiatry 06/09/20 Maribel Andrade MD [facility] [address] [address] Consulting Physician Anesthesiology 12/31/20 Guy Rosen MD [address] [place] [address] Psychiatry 01/11/22
--- OUTSIDE RECORDS SUMMARY | 2025-02-09 10:15 | XMS_ITS | Encounter Summary ---
Author Organization [facility] Address [address] [place] [address] Phone Care Team Providers Care Powerhouse Tender Name Role Phone Nan Blair Primary Care Provider [phone] Jorge Jefferson MD Primary Care Provid er Nan Blair Unavailable [phone] Nan Blair Primary Care Provider [phone] Jorge Jefferson MD Unavailable [phone] Lizzie Collins MD Unavailable [phone] Freeman Chung MD Unavailable [phone] Maribel Andrade MD Unavailable [phone] Guy Rosen MD Unavailable Miscellaneous, Not In File Primary Care Provider Unavailable Nan Blair Primary Care Provider [phone] Encounter Details Date Type Department Care Team (Latest Contact Info) Description 11/01/2017 Orders Only [facility] Scanning, Provider Social History Tobacco Use Types Packs/Day Years Used Date Smoking Tobacco: Never Assessed Comments Unknown Sex and Gender Information Value Date Recorded Sex Assigned at Not on file Legal Sex Female 1:09 AM DIRECTOR CORPORATE SECURITY Gender Identity Female 10/05/2020 10:15 AM DIRECTOR CORPORATE SECURITY Sexual Orientation Straight 10/05/2020 10 :15 AM DIRECTOR CORPORATE SECURITY documented as of this encounter Plan of Treatment Not on file documented as of this encounter Procedures Procedure Name Priority Date/Time Associated Diagnosis Comments SCAN - RADIOLOGY/IMAGING 11/01/2017 documented in this encounter Results * SCAN - RADIOLOGY/IMAGING (11/01/2017) Anatomical Region Laterality Modality Other us Provider Scanning Final Result documented in this encounter Visit Diagnoses Not on filedocumented in this encounter Care Teams Powerhouse Tender Relationship Specialty Start Date End Date Nan Blair PA [address] [place] [address] PCP - General Physician Commercial Photographer 04/28/18 02/01/19 Jorge Jefferson MD [address] [place] [address] PCP - General Family Medicine 02/02/19 03/08/19 Nan Blair PA [address] [place] [address] PCP - General Physician Commercial Photographer 03/09/19 05/03/22 Miscellaneous, Not In File PCP - General 05/04/22 07/02/22 Nan Blair PA [address] [place] [address] PCP - General Family Medicine 07/03/22 Nan Blair PA [address] [place] [address] Physician Commercial Photographer Physician Commercial Photographer 02/02/19 9 Jorge Jeffreson MD [address] [place] [address] Consulting Physician Family Medicine 03/09/19 Lizzie Collins MD [address] [address] Marine Service Station Attendant Cardiology 05/18/19 Freeman Chung MD [address] [place] [address] Referring Physician Geriatric Psychiatry 06/09/20 Maribel Andrade MD [address] [facility] [address] [address] Consulting Physician Anesthesiology 12/31/20 Guy Rosen MD [address] [place] [address] Psychiatry 01/11/22 documented as of this encounter
--- OUTSIDE RECORDS SUMMARY | 2025-02-09 10:15 | XMS_ITS | Clinical Summary ---
Author Organization [facility] Address [address] [place] [address] Care Team Providers Care Facing End Trimmer Name Role Phone Nan Blair Primary Care Provider [phone] Source Comments [facility],non-owned Affiliates and Associated Physician Practices is amultiple site organization consisting of ambulatory clinics and hospital sitesin [place], [place], [place] and [place]. This disclosure is being madepursuant to the Care Everywhere program and may not contain all information available regarding this patient. 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 Gender Identity Not on file Sexual Orientation [...] patient's age to complete this topic Insurance [facility] MANAGED MEDICARE ADV Member Subscriber Plan / Payer (Ef fective 2024-Present) Name:Kriss Worley Relation to Subscriber:Self Name:Kriss Worley Payer ID:[id number] (NAIC) Type:Medicare-Managed Care Address: [place] [id number] [place] [id number] Advance Directives * Full Code (Latest Code Status on File) Date Activated Date Inactivated Comments 03/21/2020 5:53 PM 03/25/2020 5:03 PM * Full Code Date Activated Date Inactivated Comments 03/19/2020 6:05 PM 03/21/2020 5:36 PM Care Teams Facing End Trimmer Relationship Specialty Start Date End Date Nan Blair PA PCP - General 05/08/20
[2025-02-09 10:44] VITALS: BP 117/67; PULSE 83; RESP 17; O2SAT 95
--- NOTE | 2025-02-09 11:34 | ECG_ITS ---
Test Date: 2025-02-09 11:45:23 Measurements Intervals [place] Rate: 58 P: 0 [place]: 0 QRS: 3 QRSD: 97 T: 58 QT: 386 QTc: 380 Interpretive Statements ATRIAL FIBRILLATION WITH SLOW VENTRICULAR RESPONSE INTRAVENTRICULAR CONDUCTION DELAY NONSPECIFIC T-WAVE ABNORMALITY ABNORMAL RHYTHM ECG Compared to ECG 02/09/2025 08:49:17 NO SIGNIFICANT CHANGES Electronically Signed On 02-09-2025 14:35:19 CDT by Niecy Ashton M.D.
[2025-02-09 12:04] VITALS: BP 137/93; PULSE 65; RESP 18; O2SAT 98
[2025-02-09 12:21] LABS: Troponin I < 0.012 ng/mL (0.000-0.034)
== END 2025-02-09 12:52 ==
PROVIDERS: Emergency Medicine; Emergency Provider Nurse Practitioner Family; PCP Physician Assistant
DX: R07.89 Other chest pain (principal); I48.91 Unspecified atrial fibrillation; G30.9 Alzheimer's disease, unspecified; F02.80 Dementia in other diseases classified elsewhere, unspecified severity, without behavioral disturbance, psychotic disturbance, mood disturbance, and anxiety
CPT/HCPCS: 36415; 71046; 80053; 83690; 84484; 85025; 85610; 85730; 93005; 99284

== ENCOUNTER 2025-02-25 15:13 | Emergency (ER) | payer MEDICARE, SELFPAY ==
--- NOTE | ~2025-02-25 | XR_ITS ---
XR chest 2V Ordering provider: Med De La Rosa III DO History: 74 years Female with . CP . Comparison: None. FINDINGS: MEDIASTINUM: The cardiac silhouette is not enlarged. LUNGS: No infiltrates, effusions or pneumothorax. OTHER: No free air under the diaphragm. Degenerative changes of the spine. IMPRESSION: No acute cardiopulmonary pathology. Reviewed, dictated and finalized at location A.
--- OUTSIDE RECORDS SUMMARY | 2025-02-25 15:16 | XMS_ITS | Encounter Summary ---
Author Organization [facility] Address [address] [facility] [address] [place] [address] Phone Care Team Providers Care Turret Lathe Tender Name Role Phone Nan Blair Primary Care Provider [phone] Jorge Jefferson MD Primary Care Provid er Nan Blair Unavailable [phone] Nan Blair Primary Care Provider [phone] Jorge Jefferson MD Unavailable + [phone] Lizzie Collins MD Unavailable [phone] Freeman Chung MD Unavailable [phone] Maribel Andrade MD Unavailable [phone] Guy Rosen MD Unavailable Miscellaneous, Not In File Primary Care Provider Unavailable Nan Blair Primary Care Provider [phone] Encounter Details Date Type Department Care Team (Latest Contact Info) Description 11/01/2017 Orders Only [facility] Scanning, Provider Social History Tobacco Use Types Packs/Day Years Used Date Smoking Tobacco: Never Assessed Comments Unknown Sex and Gender Information Value Date Recorded Sex Assigned at Not on file Legal 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 Female 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 Gender Identity Female 10/05/2020 10:15 AM LIEN SEARCHER Sexual Orientation Straight 10/05/2020 10 :15 AM LIEN SEARCHER documented as of this encounter Plan of Treatment Not on file documented as of this encounter Procedures Procedure Name Priority Date/Time Associated Diagnosis Comments SCAN - RADIOLOGY/IMAGING 11/01/2017 documented in this encounter Results * SCAN - RADIOLOGY/IMAGING (11/01/2017) Anatomical Region Laterality Modality Other us Provider Scanning Final Result documented in this encounter Visit Diagnoses Not on filedocumented in this encounter Care Teams Turret Lathe Tender Relationship Specialty Start Date End Date Nan Blair PA [address] [place] [address] PCP - General Physician Investment Sales Assistant 04/28/18 02/01/19 Jorge Jefferson MD [address] [place] [address] PCP - General Family Medicine 02/02/19 03/08/19 Nan Blair PA [address] [place] [address] PCP - General Physician Investment Sales Assistant 03/09/19 05/03/22 Miscellaneous, Not In File PCP - General 05/04/22 07/02/22 Nan Blair PA [address] [place] [address] PCP - General Family Medicine 07/03/22 Nan Blari PA [address] [place] [address] Physician Investment Sales Assistant Physician Investment Sales Assistant 02/02/19 9 Jorge Jefferson MD [address] [place] [address] Consulting Physician Family Medicine 03/09/19 Lizzie Collins MD [address] [address] Assortment Planner Cardiology 05/18/19 Freeman Chung MD [address] [place] [address] Referring Physician Geriatric Psychiatry 06/09/20 Maribel Andrade MD [address] [facility] [place] [address] [address] Consulting Physician Anesthesiology 12/31/20 Guy Rosen MD [address] [place] [address] Psychiatry 01/11/22 documented as of this encounter
--- OUTSIDE RECORDS SUMMARY | 2025-02-25 15:16 | XMS_ITS | Encounter Summary ---
Author Organization [facility] Facility Care Team Providers Care Manager Video Name Role Phone Nan Blair Primary Care Provider [phone] Jorge Jefferson MD Primary Care Provid er Nan Blair Unavailable [phone] Nan Blair Primary Care Provider [phone] Jorge Jefferson MD Unavailable + [phone] Lizzie Collins MD Unavailable [phone] Freeman Chung MD Unavailable [phone] Maribel Andrade MD Unavailable [phone] Guy Rosen MD Unavailable Miscellaneous, Not In File Primary Care Provider Unavailable Nan Blair Primary Care Provider [phone] Encounter Details Date Type Department Care Team (Latest Contact Info) Description 11/01/2017 Orders Only [facility] ProviderJulieta MD [address] [place] [address] Social History Tobacco Use Types Packs/Day Years Used Date Smoking Tobacco: Never Assessed Comments Unknown Sex and Gender Information Value Date Recorded Sex Assigned at Not on file Legal Sex Female 1:09 AM THREAT 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 ANALYST Gender Identity Female 10/05/2020 10:15 AM THREAT MONITORING ANALYST Sexual Orientation Straight 10/05/2020 10 :15 AM THREAT MONITORING ANALYST documented as of this encounter Plan of Treatment Not on file documented as of this encounter Procedures Procedure Name Priority Date/Time Associated Diagnosis Comments CARDIOLOGY REPORT 11/01/2017 12: 00 AM THREAT MONITORING ANALYST documented in this encounter Results * CARDIOLOGY REPORT (11/01/2017 12:00 AM THREAT MONITORING ANALYST) Anatomical Region Laterality Modality Other Narrative 11/01/2017 12:00 AM THREAT MONITORING ANALYST Ordered by an unspecified provider. us Historical Provider [facility] Final Result documented in this encounter Visit Diagnoses Not on filedocumented in this encounter Care Teams Manager Video Relationship Specialty Start Date End Date Nan Blair PA [address] [place] [address] PCP - General Physician Filling Station Attendant 04/28/18 02/01/19 Jorge Jefferson MD [address] [place] [address] PCP - General Family Medicine 02/02/19 03/08/19 Nan Blair PA [address] [place] [address] PCP - General Physician Filling Station Attendant 03/09/19 05/03/22 Miscellaneous, Not In File PCP - General 05/04/22 07/02/22 Nan Blair PA [address] [place] [address] PCP - General Family Medicine 07/03/22 Nan Blair PA [address] [place] [address] Physician Filling Station Attendant Physician Filling Station Attendant 02/02/19 9 Jorge Jefferson MD [address] [place] [address] Consulting Physician Family Medicine 03/09/19 Lizzie Collins MD [address] [address] Pmo Lead Cardiology 05/18/19 Freeman Chung MD [address] [place] [address] Referring Physician Geriatric Psychiatry 06/09/20 Maribel Andrade MD [facility] [address] [address] Consulting Physician Anesthesiology 12/31/20 Guy Rosen MD [address] [place] [address] Psychiatry 01/11/22 documented as of this encounter
--- OUTSIDE RECORDS SUMMARY | 2025-02-25 15:16 | XMS_ITS | Encounter Summary ---
Author Organization [facility] Facility Care Team Providers Care Gm Mobile Name Role Phone Nan Blair Primary Care Provider [phone] Jorge Jefferson MD Primary Care Provid er Nan Blair Unavailable [phone] Nan Blair Primary Care Provider [phone] Jorge Jefferson MD Unavailable + [phone] Lizzie Collins MD Unavailable [phone] Freeman Chung MD Unavailable [phone] Maribel Andrade MD Unavailable [phone] Guy Rosen MD Unavailable Miscellaneous, Not In File Primary Care Provider Unavailable Nan Blair Primary Care Provider [phone] Encounter Details Date Type Department Care Team (Latest Contact Info) Description 08/15/2017 Orders Only [facility] ProviderJulieta MD [address] [place] [address] Social History Tobacco Use Types Packs/Day Years Used Date Smoking Tobacco: Never Assessed Comments Unknown Sex and Gender Information Value Date Recorded Sex Assigned at Not on file Legal 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 Female 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 Gender Identity Female 10/05/2020 10:15 AM VETERAN APPEALS REVIEWER Sexual Orientation Straight 10/05/2020 10 :15 AM VETERAN APPEALS REVIEWER documented as of this encounter Plan of Treatment Not on file documented as of this encounter Procedures Procedure Name Priority Date/Time Associated Diagnosis Comments CARDIOLOGY REPORT 08/15/2017 12: 00 AM VETERAN APPEALS REVIEWER documented in this encounter Results * CARDIOLOGY REPORT (08/15/2017 12:00 AM VETERAN APPEALS REVIEWER) Anatomical Region Laterality Modality Other Narrative 08/15/2017 12:00 AM VETERAN APPEALS REVIEWER Ordered by an unspecified provider. us Historical Provider [facility] Final Result documented in this encounter Visit Diagnoses Not on filedocumented in this encounter Care Teams Gm Mobile Relationship Specialty Start Date End Date Nan Blair PA [address] [place] [address] PCP - General Physician Party Planner 04/28/18 02/01/19 Jorge Jefferson MD [address] [place] [address] PCP - General Family Medicine 02/02/19 03/08/19 Nan Blair PA [address] [place] [address] PCP - General Physician Party Planner 03/09/19 05/03/22 Miscellaneous, Not In File PCP - General 05/04/22 07/02/22 Nan Blair PA [address] [place] [address] PCP - General Family Medicine 07/03/22 Nan Blair PA [address] [place] [address] Physician Party Planner Physician Party Planner 02/02/19 9 Jorge Jefferson MD [address] [place] [address] Consulting Physician Family Medicine 03/09/19 Lizzie Collins MD [address] [address] Medical Office Coordinator Cardiology 05/18/19 Freeman Chung MD [address] [place] [address] Referring Physician Geriatric Psychiatry 06/09/20 Maribel Andrade MD [facility] [address] [address] Consulting Physician Anesthesiology 12/31/20 Guy Rosen MD [address] [place] [address] Psychiatry 01/11/22 documented as of this encounter
--- OUTSIDE RECORDS SUMMARY | 2025-02-25 15:16 | XMS_ITS ---
Last mammogram: 02/04/2018 (requested report) Last dexa:02/04/2018, ordered Last colonoscopy/cologuard:08/2015, 12/16/2018 repeat 2023 Last Hep C:04/2017 Last tdap:04/08/2013 Last Prevnar/pneumovax: 05/18/2015 (13) 07/18/2011 (23) Last Shingrix: (zoster 10/07/2012) 10/16/2018, 07/03/2018 Last eye exam: 05/25/2020 Assessment & Plan (11/15/2021 10:28 AM FLIGHT SERVICE AGENT): PMH/MHA: 11/15/2021 Last pap:2012 Last mammogram: 02/04/2018 (requested report) Last dexa:02/04/2018, ordered Last colonoscopy/cologuard:08/2015, 12/16/2018 repeat 2023 Last Hep C:04/2017 Last tdap:04/08/2013 Last Prevnar/pneumovax: 05/18/2015 (13) 07/18/2011 (23) Last Shingrix: (zoster 10/07/2012) 10/16/2018, 07/03/2018 Last eye exam: 05/25/2020 Assessment & Plan (10/12/2020 11:27 AM FLIGHT SERVICE AGENT): PMH/MHA: 10/12/2020 Last pap:2012 Last mammogram: 02/04/2018 Last dexa:02/04/2018 Last colonoscopy/cologuard:08/2015, 12/16/2018 repeat 2023 Last Hep C:04/2017 Last tdap:04/08/2013 Last Prevnar/pneumovax: 05/18/2015 (13) 07/18/2011 (23) Last Shingrix: (zoster 10/07/2012) 10/16/2018, 07/03/2018 Last eye exam: 05/25/2020 Assessment & Plan (08/26/2019 1:10 PM FLIGHT SERVICE AGENT): PMH/MHA: 08/26/2019 Last pap:2012 Last mammogram: 02/04/2018 Last dexa:02/04/2018 Last colonoscopy/cologuard:08/2015, 12/16/2018 repeat 2023 Last Hep C:04/2017 Last tdap:04/08/2013 Last Prevnar/pneumovax: 05/18/2015 (13) 07/18/2011 (23) Last Shingrix: (zoster 10/07/2012) 10/16/2018, 07/03/2018 Last eye exam: due Recurrent major depressive disorder, in partial remission 10/13/2018 Assessment & Plan (05/07/2023 3:58 PM CDT): Chronic. Continue follow-up psychiatry. Assessment & Plan (11/15/2021 10:29 AM FLIGHT SERVICE AGENT): Stable continue meds Assessment & Plan (10/12/2020 11:28 AM FLIGHT SERVICE AGENT): Stable, followed by Psychiatry Assessment & Plan (05/23/2020 3:09 PM CDT): Strongly recommend consistent care and follow-up with [facility] to evaluate and treat mood diagnoses [...] psychiatry Assessment & Plan (10/16/2019 1:12 PM FLIGHT SERVICE AGENT): Uncontrolled. Assessment & Plan (10/14/2019 1:02 PM FLIGHT SERVICE AGENT): Uncontrolled. I really feel like pt is very lonely and she needs daily interaction with other people. Encouraged pt to consider a chcf center to open her world to new hobbies, interactions with other. Need referral to psychiatrist. Need to see counselor within the next 2 wks. Memory issues may be related to depression. Assessment & Plan (08/26/2019 1:24 PM FLIGHT SERVICE AGENT): Referral to psychiatrist Generalized anxiety disorder 03/12/2018 Assessment & Plan (05/07/2023 3:57 PM CDT): Chronic. Continue follow-up with psychiatrist. Assessment & Plan (11/15/2021 10:28 AM FLIGHT SERVICE AGENT): Stable, continue current meds Assessment & Plan (10/12/2020 11:26 AM FLIGHT SERVICE AGENT): Stable followed by Psychiatry Assessment & Plan (02/19/2020 3:30 PM CDT): Stable Assessment & Plan (11/18/2019 4:05 PM FLIGHT SERVICE AGENT): Patient will hold lorazepam at this time. She is not having any anxiety Assessment & Plan (10/14/2019 1:03 PM FLIGHT SERVICE AGENT): Referral psychiatrist Assessment & Plan (08/26/2019 1:22 PM FLIGHT SERVICE AGENT): Stable Bipolar 1 disorder, depressed, moderate 11/06/19 18 Assessment & Plan (11/27/2024 1:17 PM FLIGHT SERVICE AGENT): Chronic, stable, patient will continue her medications for Alzheimer's to include Aricept and Namenda. No additional meds needed at this time Assessment & Plan (05/07/2023 3:57 PM CDT): Chronic. Continue follow-up with psychiatrist. Assessment & Plan (11/15/2021 10:27 AM FLIGHT SERVICE AGENT): Stable Assessment & Plan (10/12/2020 11:26 AM FLIGHT SERVICE AGENT): Stable followed by Psychiatry Assessment & Plan (05/02/2020 2:11 PM CDT): Follow with psychiatry Assessment & Plan (02/19/2020 3:30 PM CDT): Patient has not made appointment with a psychiatrist. Patient reports she is feeling stable on her current meds. I encouraged patient to make a Psychiatry appointment Assessment & Plan (11/18/2019 4:05 PM FLIGHT SERVICE AGENT): Uncontrolled. Increase Wellbutrin to 300 mg. Patient needs to see a psychiatrist. Patient given a list of psychiatrist in the area. I spoke with her jaspreeton not too long ago about patient needing to see the psychiatrist and also patient needing to consider moving into some type of chcf center to have interactions with other people Assessment & Plan (10/16/2019 3:21 PM FLIGHT SERVICE AGENT): Uncontrolled. Pt does not have a psychiatrist [...] consider looking into inpatient psychiatric care at [facility] in [place]. Patient's son will be contacting his brother and they will be deciding what to do in the next day or so. Patient will be monitor closely over the weekend by [facility]. Assessment & Plan (10/14/2019 1:03 PM FLIGHT SERVICE AGENT): Uncontrolled, referral to psychiatrist. Assessment & Plan (08/26/2019 1:22 PM FLIGHT SERVICE AGENT): Depressed, need to see psychiatry for medication adjustment. Essential (primary) hypertension 08/15/2017 Assessment & Plan (11/27/2024 2:03 PM FLIGHT SERVICE AGENT): Episodes of hypotension. We are going to hold amlodipine. We are going to have Dayna Beatty [facility] living check her blood pressure daily and report numbers in 1 week. Assessment & Plan (05/07/2023 3:57 PM CDT): Chronic and controlled without medication. Continue to monitor. Assessment & Plan (11/15/2021 10:28 AM FLIGHT SERVICE AGENT): Stable, continue current meds Assessment & Plan (10/12/2020 11:26 AM FLIGHT SERVICE AGENT): Stable continue meds Assessment & Plan (02/19/2020 3:30 PM CDT): Stable Assessment & Plan (11/18/2019 4:05 PM FLIGHT SERVICE AGENT): Stable continue meds Assessment & Plan (08/26/2019 1:22 PM FLIGHT SERVICE AGENT): Stable, continue current meds Primary osteoarthritis of right knee 08/15/2017 Assessment & Plan (05/07/2023 2:31 PM CDT): Continue Tylenol as needed for pain. Assessment & Plan (11/15/2021 10:29 AM FLIGHT SERVICE AGENT): Patient takes Tylenol for pain. Assessment & Plan (10/12/2020 11:28 AM FLIGHT SERVICE AGENT): Uncontrolled. Patient will hopefully get to start physical therapy soon once her insurance has been reinstated. Patient may also need to see Ortho in the near future Assessment & Plan (08/26/2019 1:24 PM FLIGHT SERVICE AGENT): stable Unsteady gait 11/09/2016 Assessment & Plan (05/07/2023 3:58 PM CDT): Completed physical therapy. No recent falls. Assessment & Plan (11/15/2021 10:29 AM FLIGHT SERVICE AGENT): Recommend physical therapy. Recommend using a cane Assessment & Plan (10/12/2020 11:29 AM FLIGHT SERVICE AGENT): Uncontrolled. Patient is doing okay with her [...] daily. Assessment & Plan (08/26/2019 1:24 PM FLIGHT SERVICE AGENT): Use cane at all times, Recommend PT. Pt will consider that. Assessment & Plan (02/02/2019 11:25 AM CDT): Order physical therapy Glucose intolerance (impaired glucose tolerance) 09/03/2016 Assessment & Plan (05/07/2023 3:57 PM CDT): Diet controlled. Labs ordered today. Assessment & Plan (11/15/2021 10:28 AM FLIGHT SERVICE AGENT): Diet controlled, requested lab results Assessment & Plan (10/12/2020 11:27 AM FLIGHT SERVICE AGENT): Stable, diet controlled Assessment & Plan (02/19/2020 3:30 PM CDT): Diet controlled check labs Assessment & Plan (08/26/2019 1:23 PM FLIGHT SERVICE AGENT): Diet controlled, due for labs Obstructive sleep apnea 08/14/2016 Assessment & Plan (05/07/2023 2:30 PM CDT): Not on CPAP. Assessment & Plan (11/15/2021 10:29 AM FLIGHT SERVICE AGENT): Stable Assessment & Plan (10/12/2020 11:28 AM FLIGHT SERVICE AGENT): Stable, no CPAP machine at this time Assessment & Plan (08/26/2019 1:13 PM FLIGHT SERVICE AGENT): No cpap machine Other allergic rhinitis 08/14/2016 Assessment & Plan (05/07/2023 2:30 PM CDT): Continue current management. Assessment & Plan (11/15/2021 10:29 AM FLIGHT SERVICE AGENT): Stable Assessment & Plan (10/12/2020 11:28 AM FLIGHT SERVICE AGENT): Stable p.r.n. meds Assessment & Plan (08/26/2019 1:23 PM FLIGHT SERVICE AGENT): stable Atrial flutter 02/14/2016 Overview (02/08/2025): Last Assessment & Plan: Stable Last Assessment & Plan: Stable Other specified hypothyroidism 12/30/2015 Assessment & Plan (05/07/2023 2:30 PM CDT): Continue current dose of levothyroxine. Due for TSH. Assessment & Plan (11/15/2021 10:29 AM FLIGHT SERVICE AGENT): Stable, continue meds, requested lab Assessment & Plan (10/12/2020 11:28 AM FLIGHT SERVICE AGENT): Stable continue meds Assessment & Plan (02/19/2020 3:31 PM CDT): Check labs Assessment & Plan (08/26/2019 1:24 PM FLIGHT SERVICE AGENT): Stable, check labs Mixed hyperlipidemia 12/30/2015 Assessment & Plan (05/07/2023 2:30 PM CDT): Diet controlled. Will continue to monitor lipid panel. Assessment & Plan (11/15/2021 10:29 AM FLIGHT SERVICE AGENT): Diet controlled. Requested lab Assessment & Plan (10/12/2020 11:28 AM FLIGHT SERVICE AGENT): Stable, patient is not on meds at this time Assessment & Plan (02/19/2020 3:31 PM CDT): Check labs Assessment & Plan (08/26/2019 1:23 PM FLIGHT SERVICE AGENT): Check labs Vitamin D deficiency 12/30/2015 Assessment & Plan (05/07/2023 2:31 PM CDT): Continue vitamin-D supplement. Assessment & Plan (11/15/2021 10:30 AM FLIGHT SERVICE AGENT): Stable continue vitamin Assessment & Plan (10/12/2020 11:29 AM FLIGHT SERVICE AGENT): Stable continue vitamin Assessment & Plan (02/19/2020 3:31 PM CDT): Check labs Assessment & Plan (08/26/2019 1:25 PM FLIGHT SERVICE AGENT): Continue vit d Resolved Problems Problem Noted Date Diagnosed Date Resolved Date Unspecified mood (affective) disorder ([facility]) 03/21/2020 11/15/2021 Assessment & Plan (10/12/2020 11:29 AM FLIGHT SERVICE AGENT): Stable followed by Psychiatry Assessment & Plan [...] 03/12/2018 Assessment & Plan (10/12/2020 11:28 AM FLIGHT SERVICE AGENT): Stable continue meds Assessment & Plan (11/18/2019 4:05 PM FLIGHT SERVICE AGENT): With patient's change in urinary symptoms I would like to hold the VESIcare and see how she does. UA in office today was negative Assessment & Plan (08/26/2019 1:24 PM FLIGHT SERVICE AGENT): Stable, continue meds Mild neurocognitive disorder 12/20/2017 [...] 2019 Assessment & Plan (10/14/2019 1:03 PM FLIGHT SERVICE AGENT): [place] [facility] [place]. Scores show mild decline. Assessment & Plan (08/26/2019 1:23 PM FLIGHT SERVICE AGENT): Need to rtc for memory testing. Paroxysmal SVT (supraventric ular tachycardia) (CMS/HCC) 08/15/2017 11/15/2021 Assessment & Plan (10/12/2020 11:28 AM FLIGHT SERVICE AGENT): Stable Assessment & Plan (02/19/2020 3:31 PM CDT): Stable Assessment & Plan (08/26/2019 1:24 PM FLIGHT SERVICE AGENT): Stable, followed by cardiology Leukocytoclastic vasculitis 04/24/2017 08/26/2019 Leucocytosis 03/26/2017 08/26/2019 MARTIN (dyspnea on exertion) 12/11/2016 History of IBS 09/03/2016 08/26/2019 History of radiofrequency ab lation procedure for cardiac arrhythmia 09/03/2016 08/26/2019 Vulvar dystrophy 09/03/2016 10/12/2020 Assessment & Plan (08/26/2019 1:25 PM FLIGHT SERVICE AGENT): Stable History of rhabdomyolysis 08/14/2016 Atrial flutter ([facility]/HCC) 02/14/201606/2022 Assessment & Plan (10/12/2020 11:26 AM FLIGHT SERVICE AGENT): Stable Assessment & Plan (02/19/2020 3:30 PM CDT): Stable Assessment & Plan (08/26/2019 1:22 PM FLIGHT SERVICE AGENT): Stable followed by cardiology Immunizations Immunization Administration [...] on file Legal Sex Female 1:09 AM FLIGHT SERVICE AGENT Gender Identity Female 10/05/2020 10:15 AM FLIGHT SERVICE AGENT Sexual Orientation Straight 10/05/2020 10 :15 AM FLIGHT SERVICE AGENT 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 Not on file Not on file Last Filed Vital Signs Vital Sign Reading Time Taken Comments Blood Pressure 116/78 02/24/2025 8:31 AM CDT Pulse 73 02/24/2025 8:31 AM CDT Temperature 36.8 C (98.3 F) 01/27/2025 1:38 PM CDT Respiratory Rate 16 11/27/2024 10:05 AM FLIGHT SERVICE AGENT Oxygen Saturation 95% 02/24/2025 8:31 AM CDT Inhaled Oxygen Concentration - - Weight 86.2 kg (190 lb) 02/24/2025 8:31 AM CDT Height 165.1 cm (5' 5 ) 02/24/2025 8:31 AM CDT Body Mass Index 31.62 02/24/2025 8:31 AM CDT Plan of Treatment Not on [...] Encounter for screening for osteoporosis Menopause present HM COLONOSCOPY Routine 12/16/2018 HM MAMMOGRAPHY Routine 02/04/2018 [...] PM CDT) Anatomical Region Laterality Modality Other Provider Scanning Final Result * MRI Brain [...] diffuse cerebral and cerebellar parenchymal volume loss. Ucjhj-[id number]-bdep-left middle cranial fossa arachnoid cyst or underlying [...] signed by Alex SALCEDO T: Report ID: [id number] Reading Location: [id number] Procedure Note Alex Ashton DO - 01/05/2025 EXAM DESCRIPTION: MRI BRAIN [...] diffuse cerebral and cerebellar parenchymal volume loss. Ioadd-tcgfcwu-qlxu-left middle cranial fossa arachnoid cyst or underlyingmore [...] Alex Ashton D.O. AP T: Report ID: [id number] Reading Location: [id number] Nan RILEY IMD[facility] MRI PROCEDURES Final Resul t * Dexa Axial Skeleton Bone Density 1 or 2 Site (05/07/2022 12:52 PM CDT) Anatomical Region Laterality Modality Body N/A Mammography 05/07/2022 1:53 PM CDT Narrative 05/07/2022 1:54 PM CDT EXAM DESCRIPTION: DEXA AXIAL SKELETON BONE DENSITY 1 OR MORE SITES REASON FOR STUDY: 71 y/o year old F with given history of screening. 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 TB: TB Report ID: [id number] Reading Location: [place] [id number] Procedure Note MoonLanette MD - 05/07/2022 EXAM DESCRIPTION: DEXA AXIAL SKELETON BONE DENSITY 1 OR MORE SITES REASON FOR STUDY: 71 y/o year old F with given history ofscreening. 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 TB: TB Report ID: [id number] Reading Location: [id number] Nan RILEY [employer] DXA PROCEDURES Final Resul t * COLONOSCOPY (12/16/2018) [facility] Colonoscopy Abnormal Result [facility] Historical Provider HEALTH MAINTENANCE Final Result * MAMMOGRAPHY (02/04/2018) [facility] Mammogram Normal [facility] Provider HEALTH MAINTENANCE Final Result * Hepatitis C antibody (04/24/2017 11:05 AM CDT) [facility] Hep C Ab NONREACT NONREACTIVE Comment: [employer] using NIKUNJ (chemiluminescent immunoassay) technology. NONREACTIVE: Antibodies [...] MICROBIOLOGY - GENERAL ORD ERABLES Final Result [facility] HISTORICAL RESULTS from Last 3 Months or Most Recently Relevant to Health Maintenance Insurance MEDICARE [facility] MEDICARE ADVANTAGE [facility] [place] [id number] [facility] MEDICARE ADVANTAGE Advance Directives For more information, please contact: [phone] Documents on File Type Date Recorded Patient [employer] Expl anation ADVANCE DIRECTIVE 12/07/2020 3:24 PM DNR ADVANCE DIRECTIVE 09/25/2013 12:00 AM [facility] CHIEF NUCLEAR MEDICINE TECHNOLOGIST FINANCIAL/MEDICAL Care Teams Pot Annealer Relationship Specialty Start Date End Date Nan Blair PA [address] [place] [address] PCP - General Family Medicine 07/03/22 Jorge Jefferson MD [address] [place] [address] Consulting Physician Family Medicine 03/09/19 iLzzie Collins MD [address] [place] [address] [facility] St[facility] Cardiology 05/18/19 Freeman Chung MD [address] [place] [address] Referring Physician Geriatric Psychiatry 06/09/20 Maribel Andrade MD [address] [facility] [facility] [address] [address] Consulting Physician Anesthesiology 12/31/20 Guy Rosen MD [address] [place] [address] Psychiatry 01/11/22
--- OUTSIDE RECORDS SUMMARY | 2025-02-25 15:16 | XMS_ITS | Encounter Summary ---
Author Organization [facility] Healthcare Address [address] [place] [address] Care Team Providers Care Front End Loader Driver Name Role Phone Jorge Jefferson MD Unavailable + [phone] Lizzie Collins MD Unavailable [phone] Freeman Chung MD Unavailable [phone] Maribel Andrade MD Unavailable [phone] Guy Rosen MD Unavailable Nan Blair Primary Care Provider [phone] Reason for Visit * Reason Comments Hospital Follow Up Encounter Details Date Type Department Care Team (Late st Contact Info) Description 02/24/2025 8:30 AM CDT Office Visit [facility] Medical [facility] Cardiology [address] [place] [address] Kassandra Shannon, JESSE [address] [place] [address] Atrial fibrillation, unspecified type (HCC) (Primary Dx); Mitral valve insufficiency, unspecified etiology; Hospital discharge follow-up Social History Tobacco Use Types Packs/Day Years [...] on file Legal Sex Female 1:09 AM PARKING ATTENDANT Gender Identity Female 10/05/2020 10:15 AM PARKING ATTENDANT Sexual Orientation Straight 10/05/2020 10 :15 AM PARKING ATTENDANT 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 Not on file Not on file documented as of this encounter Last Filed Vital Signs Vital Sign Reading Time Taken Comments Blood Pressure 116/78 02/24/2025 8:31 AM CDT Pulse 73 02/24/2025 8:31 AM CDT Temperature - - Respiratory Rate - - Oxygen Saturation 95% 02/24/2025 8:31 AM CDT Inhaled Oxygen Concentration - - Weight 86.2 kg (190 lb) 02/24/2025 8:31 AM CDT Height 165.1 cm (5' 5 ) 02/24/2025 8:31 AM CDT Body Mass Index 31.62 02/24/2025 8:31 AM CDT documented in this encounter Progress Notes * Kassandra Shannon NP - 02/24/2025 8:30 AM CDT [facility] Medical Group Cardiology [address] [place] [address] Date of Visit: 02/24/2025 Patient ID: Kriss Worley [id number] Chief Complaint: Kriss Worley is a 74 y.o. female who comes to the office for a hospital follow up for atrial fibrillation History of Present Illness: Kriss Worley is a 74 y.o. female with Alzheimer's dementia. She was hospitalized at [facility] on01/28/25 because she was feeling spacey. Cardiology was consulted for atrial fibrillation. She hasa known history of atrial fibrillation being managed with rate control and anticoagulation. Echocardiogram was performed during her hospitalization and showed normal LV function, EF 60- 65% and moderate MR. 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 She has been feeling well since her release from the hospital and has no complaints. She is accompanied by two sons who provide history as patient has significant memory issues. They tell me she was brought to the ER a couple of weeks after discharge because of chest pain. Apparently her workup was negative and she was sent home from the ER. Patient does not recall and of this. She has sustained one ground level fall that reportedly occurred because she tripped over an object nearthe nurses statin at her assisted living facility. Records that I personally reviewed on the day of this visit include: (the interpretation is outlined in the HPI above) Records from the above mentioned hospital admission. I have also reviewed: allergies, current medications, past family history, past medical history, past social history, past surgical history and problem list Review of Systems Constitutional: Negative for fever, malaise/fatigue, night sweats, weight gain and weight loss. HENT: Negative for hearing loss. Eyes: Negative for blurred vision and visual disturbance. Cardiovascular: Negative for chest pain, claudication, dyspnea on exertion, irregular heartbeat, leg swelling, near-syncope, orthopnea, palpitations, paroxysmal nocturnal dyspnea and syncope. Respiratory: Negative for shortness of breath, sleep disturbances due to breathing, snoring and wheezing. Hematologic/Lymphatic: Negative for bleeding problem. Musculoskeletal: Negative for muscle cramps and muscle weakness. Gastrointestinal: Negative for abdominal pain, change in bowel habit, diarrhea, nausea and vomiting. Genitourinary: Negative for hematuria. Neurological: Negative for dizziness and headaches. Vital Signs: BP 116/78 (BP Location: Right arm, Patient Position: Sitting) Pulse 73 Ht 165.1 cm (5' 5 ) Wt86.2 kg (190 lb) SpO2 95% BMI 31.62 kg/m?? Body mass index is 31.62 kg/m??. Physical Exam Vitals reviewed. Constitutional: General: She is not in acute distress. HENT: Head: Normocephalic and atraumatic. Eyes: Extraocular Movements: Extraocular movements intact. Conjunctiva/sclera: Conjunctivae normal. Cardiovascular: Rate and Rhythm: Normal rate. Rhythm irregular. Heart sounds: Normal heart sounds. Pulmonary: Effort: Pulmonary effort is normal. No respiratory distress. Breath sounds: Normal breath sounds. Abdominal: General: Bowel sounds are normal. Palpations: Abdomen is soft. Musculoskeletal: General: Normal range of motion. Cervical back: Normal range of motion and neck supple. Skin: General: Skin is warm and dry. Neurological: Mental Status: She is alert and oriented to person, place, and time. Allergies Allergen Reactions Olanzapine Delusions Confusion Penicillins Hives, Swelling, Unknown and Urticaria Hives Amoxicillin Unknown Codeine Other (See comments), Dizziness, Nausea And Vomiting and Unknown Spaced out and sick to stomach Spaced out and sick to stomach confusion, n/v [place] Other (See comments) and Unknown Severe reaction-Kidney failure Severe reaction-Kidney failure Severe reaction-Kidney failure Morphine Unknown and Vomiting *pt not aware of reaction; can't remember but knows she should not take this. vomiting Current Outpatient Medications: cholecalciferol (VITAMIN D-3) 25 mcg (1,000 unit) [...] then discontinue., Disp: 14 tablet, Rfl: 0 Eliquis 5 mg tablet, , Disp: , Rfl: lamoTRIgine (LaMICtal) 25 mg tablet, Take 2 tablets (50 mg total) by mouth 2 (two) times a day, Disp: 120 tablet, Rfl: 9 levothyroxine (SYNTHROID) 88 mcg tablet, TAKE 1 TABLET BY MOUTH ONCE DAILY, Disp: 14 tablet, Rfl: 3 Matzim [place] 240 mg 24 hr tablet, , Disp: , Rfl: melatonin 5 mg tablet, Take 0.6 tablets (3 mg total) by mouth nightly as needed, Disp: , Rfl: memantine (NAMENDA) 10 mg tablet, Take 1 tablet (10 mg total) by mouth 2 (two) times a day, Disp: ,Rfl: naltrexone (DEPADE) 50 mg tablet, Take 1 tablet (50 mg total) by mouth daily, Disp: 30 tablet, Rfl:3 albuterol HFA (PROVENTIL HFA,VENTOLIN HFA,PROAIR HFA) 90 mcg/actuation inhaler, Inhale 2 puffs every 6 (six) hours as needed for wheezing (Patient not taking: Reported on 02/24/2025), Disp: , Rfl: Lab Results Component Value Date POTASSIUM 4.3 05/21/2023 BUNSER 14 05/21/2023 CREATININE 0.61 05/21/2023 CHOL 190 05/21/2023 TRIG 73 05/21/2023 LDL 105 (H) 05/21/2023 LDLCALC 87 06/24/2020 HDL 69 05/21/2023 Assessment: Diagnoses and all orders for this visit: Atrial fibrillation, unspecified type (HCC) (Primary) Mitral valve insufficiency, unspecified etiology Hospital discharge follow-up Stable, A. Fib controlled. Continue current medical therapy and systemic anticoagulation for strokerisk reduction. CHADS2 Vasc score 3. Will discontinue ASA as she has no indication for it. She has moderate MR. Surveillance with periodic echocardiogram at an interval to be determined by Dr. Wilkes. Overall doing well and has no complaints today. Kassandra ERNST- Nurse Practitioner with [facility] Cardiology This note is dictated and transcribed using [employer] Software. Soaping Department Supervisor variancesmay occur. Despite proofreading, typographical errors may occur. documented in this encounter Plan of Treatment Not on file documented as of this encounter Visit Diagnoses Diagnosis Atrial fibrillation, unspecified type (HCC)- Primary Mitral valve insufficiency, unspecified etiology Hospital discharge follow-up Other follow-up examination documented in this encounter Discontinued Medications Medication Sig Discontinue Reason Start Date End Da te amLODIPine (NORVASC) 5 mg tablet Take 1 tablet (5 mg total) by mouth daily Alternate therapy 12/30/2023 02/24/2025 aspirin 81 mg enteric coated tablet Take 1 tablet (81 mg total) by mouth daily No longer taking - Do not display on AVS 02/24/2025 documented as of this encounter Historical Medications * This list may reflect changes made after this encounter. Medication Sig Dispense Quantity Refills Last Filled Start D ate End Date Matzim LA 240 mg 24 hr tablet 02/22/2025 Eliquis 5 mg tablet 02/22/2025 added in this encounter Care Teams Front End Loader Driver Relationship Specialty Start Date End Date Nan Blair PA [address] [place] [address] PCP - General Family Medicine 07/03/22 Jorge Jefferson MD [address] [place] [address] Consulting Physician Family Medicine 03/09/19 Lizzie Collins MD [address] [facility] [address] [address] Flume Tender Cardiology 05/18/19 Freeman Chung MD [address] [place] [address] Referring Physician Geriatric Psychiatry 06/09/20 Maribel Andrade MD [address] [facility] [address] [place] [address] Consulting Physician Anesthesiology 12/31/20 Guy Rosen MD [address] [place] [address] Psychiatry 01/11/22 documented as of this encounter
--- OUTSIDE RECORDS SUMMARY | 2025-02-25 15:16 | XMS_ITS | Clinical Summary ---
Author Organization [facility] Address [address] [place] [address] Care Team Providers Care Electrician Research Name Role Phone Jorge Jefferson MD Unavailable [phone] Lizzie Collins MD Unavailable [phone] Freeman Chung MD Unavailable [phone] Maribel Andrade MD Unavailable [phone] Guy Rosen MD Unavailable Nan Blair Primary Care Provider [phone] Allergies Active Allergy Reactions Criticality Noted Date Comments Amoxicillin Unknown 02/02/2019 Codeine Other (See comments),Dizziness,Naus ea And Vomiting,Unknown Low 03/16/2016 Spaced out and sick to stomach Spaced out and sick to stomach confusion, n/v [place] Other (See comments),Unknown Low 02/02/2019 Severe reaction-Kidney [...] BY MOUTH ONCE DAILY 90 tablet 1 04/19/20 21 Active cyanocobalamin (Vitamin B-12) 1,000 mcg tablet TAKE 1 TABLET BY MOUTH EVERY OTHER DAY 7 tablet 4 10/13/19 22 Active memantine (NAMENDA) 10 mg tabletIndicati ons:Moderate to Severe Alzheimer's Type Dementia Take 1 tablet (10 mg total) by mouth 2 (two) times a day Active melatonin 5 mg tablet Take 0.6 tablets (3 mg total) by mouth nightly as needed Active levothyroxine (SYNTHROID) 88 mcg tablet TAKE 1 TABLET BY MOUTH ONCE DAILY 14 tablet 3 11/23/19 23 Active albuterol HFA (PROVENTIL HFA,VENTOLIN HFA,PROAIR HFA) 90 mcg/actuation inhaler Inhale 2 puffs every 6 (six) hours as needed for wheezing Active naltrexone (DEPADE) 50 mg tabletIndicati ons:Alcohol use disorder, moderate (HCC) Take 1 tablet (50 mg total) by mouth daily 30 tablet 3 07/29/20 24 025 Active donepeziL (ARICEPT) 5 mg tablet Take 1 tablet (5 mg total) by mouth daily Discontinue 10 mg donepezil. Take 5 mg donepezil daily for 2 weeks and then discontinue. 14 tablet 01/13/20 25 Active lamoTRIgine (LaMICtal) 25 mg tablet Take 2 tablets (50 mg total) by mouth 2 (two) times a day 120 tablet 9 02/12/20 25 Active Eliquis 5 mg tablet 02/23/20 25 Active Matzim LA 240 mg 24 hr tablet 02/23/20 25 Active aspirin 81 mg enteric coated tablet Take 1 tablet (81 mg total) by mouth daily 025 Discontinu ed(No longer taking - Do not display on AVS) amLODIPine (NORVASC) 5 mg tablet Take 1 tablet (5 mg total) by mouth daily 12/30/19 24 025 Discontinu ed(Alterna te therapy) lamoTRIgine (LaMICtal) 25 mg tablet Take one tablet per day for 14 days. Then take one tablet twice per day for 14 days 42 tablet 01/13/20 25 025 Discontinu ed(Other) lamoTRIgine (LaMICtal) 25 mg tablet AFTER completing prescription of 25 mg twice daily for 14 days, take one tablet every morning and 2 tablets (50 mg) every evening for 14 days. Then begin 2 tablets every morning and 2 tablets every evening. 98 tablet 01/27/20 25 025 Discontinu ed(Other) Active Problems Problem Noted Date Diagnosed Date Atrial fibrillation 02/24/2025 Mitral valve insufficiency 02/24/2025 Hospital discharge follow-up 02/24/2025 Seizure disorder 11/27/2024 Assessment & Plan (11/27/2024 1:17 PM PREPARING BOX TENDER): Patient had a seizure 1 year ago. [...] 10/12/2020 Assessment & Plan (11/27/2024 10:55 AM PREPARING BOX TENDER): Progressing. Patient will continue Namenda and Aricept. [...] ASL Assessment & Plan (11/15/2021 10:29 AM PREPARING BOX TENDER): Worsening. Patient will continue current meds. Followed [...] is not addictive. Agree with move to [facility]. Continue to work with Dr. Andrade, counselor and cognitive stimulation therapist. Assessment & Plan (10/12/2020 11:27 AM PREPARING BOX TENDER): Followed by neurology, unchanged Class 1 obesity due to exces s calories with serious comorbidity and body mass index (BMI) of 31.0 to 31.9 in adult 08/26/2019 Assessment & Plan (05/07/2023 2:29 PM CDT): Reviewed BMI Focus on healthy diet options Work on healthy changes Assessment & Plan (11/15/2021 10:28 AM PREPARING BOX TENDER): Uncontrolled. Goal of BMI is less than [...] month Assessment & Plan (10/12/2020 11:26 AM PREPARING BOX TENDER): Educated patient on healthy diet/exercise plan. Exercise [...] sugar. Assessment & Plan (08/26/2019 1:23 PM PREPARING BOX TENDER): Educated patient on healthy diet/exercise plan. Exercise [...] 05/25/2020 Assessment & Plan (11/15/2021 10:28 AM PREPARING BOX TENDER): PMH/MHA: 11/15/2021 Last pap:2012 Last mammogram: 02/04/2018 (requested report) Last dexa:02/04/2018, ordered Last colonoscopy/cologuard:08/2015, 12/16/2018 repeat 2023 Last Hep C:04/2017 Last tdap:04/08/2013 Last Prevnar/pneumovax: 05/18/2015 (13) 07/18/2011 (23) Last Shingrix: (zoster 10/07/2012) 10/16/2018, 07/03/2018 Last eye exam: 05/25/2020 Assessment & Plan (10/12/2020 11:27 AM PREPARING BOX TENDER): PMH/MHA: 10/12/2020 Last pap:2012 Last mammogram: 02/04/2018 Last dexa:02/04/2018 Last colonoscopy/cologuard:08/2015, 12/16/2018 repeat 2023 Last Hep C:04/2017 Last tdap:04/08/2013 Last Prevnar/pneumovax: 05/18/2015 (13) 07/18/2011 (23) Last Shingrix: (zoster 10/07/2012) 10/16/2018, 07/03/2018 Last eye exam: 05/25/2020 Assessment & Plan (08/26/2019 1:10 PM PREPARING BOX TENDER): PMH/MHA: 08/26/2019 Last pap:2012 Last mammogram: 02/04/2018 Last dexa:02/04/2018 Last colonoscopy/cologuard:08/2015, 12/16/2018 repeat 2023 Last Hep C:04/2017 Last tdap:04/08/2013 Last Prevnar/pneumovax: 05/18/2015 (13) 07/18/2011 (23) Last Shingrix: (zoster 10/07/2012) 10/16/2018, 07/03/2018 Last eye exam: due Recurrent major depressive disorder, in partial remission 10/13/2018 Assessment & Plan (05/07/2023 3:58 PM CDT): Chronic. Continue follow-up psychiatry. Assessment & Plan (11/15/2021 10:29 AM PREPARING BOX TENDER): Stable continue meds Assessment & Plan (10/12/2020 11:28 AM PREPARING BOX TENDER): Stable, followed by Psychiatry Assessment & Plan (05/23/2020 3:09 PM CDT): Strongly recommend consistent care and follow-up with [facility] to evaluate and treat mood diagnoses [...] psychiatry Assessment & Plan (10/16/2019 1:12 PM PREPARING BOX TENDER): Uncontrolled. Assessment & Plan (10/14/2019 1:02 PM PREPARING BOX TENDER): Uncontrolled. I really feel like pt is very lonely and she needs daily interaction with other people. Encouraged pt to consider a retirement center to open her world to new hobbies, interactions with other. Need referral to psychiatrist. Need to see counselor within the next 2 wks. Memory issues may be related to depression. Assessment & Plan (08/26/2019 1:24 PM PREPARING BOX TENDER): Referral to psychiatrist Generalized anxiety disorder 03/12/2018 Assessment & Plan (05/07/2023 3:57 PM CDT): Chronic. Continue follow-up with psychiatrist. Assessment & Plan (11/15/2021 10:28 AM PREPARING BOX TENDER): Stable, continue current meds Assessment & Plan (10/12/2020 11:26 AM PREPARING BOX TENDER): Stable followed by Psychiatry Assessment & Plan (02/19/2020 3:30 PM CDT): Stable Assessment & Plan (11/18/2019 4:05 PM PREPARING BOX TENDER): Patient will hold lorazepam at this time. She is not having any anxiety Assessment & Plan (10/14/2019 1:03 PM PREPARING BOX TENDER): Referral psychiatrist Assessment & Plan (08/26/2019 1:22 PM PREPARING BOX TENDER): Stable Bipolar 1 disorder, depressed, moderate 11/06/19 18 Assessment & Plan (11/27/2024 1:17 PM PREPARING BOX TENDER): Chronic, stable, patient will continue her medications for Alzheimer's to include Aricept and Namenda. No additional meds needed at this time Assessment & Plan (05/07/2023 3:57 PM CDT): Chronic. Continue follow-up with psychiatrist. Assessment & Plan (11/15/2021 10:27 AM PREPARING BOX TENDER): Stable Assessment & Plan (10/12/2020 11:26 AM PREPARING BOX TENDER): Stable followed by Psychiatry Assessment & Plan (05/02/2020 2:11 PM CDT): Follow with psychiatry Assessment & Plan (02/19/2020 3:30 PM CDT): Patient has not made appointment with a psychiatrist. Patient reports she is feeling stable on her current meds. I encouraged patient to make a Psychiatry appointment Assessment & Plan (11/18/2019 4:05 PM PREPARING BOX TENDER): Uncontrolled. Increase Wellbutrin to 300 mg. Patient needs to see a psychiatrist. Patient given a list of psychiatrist in the area. I spoke with her jaspereton not too long ago about patient needing to see the psychiatrist and also patient needing to consider moving into some type of retirement center to have interactions with other people Assessment & Plan (10/16/2019 3:21 PM PREPARING BOX TENDER): Uncontrolled. Pt does not have a psychiatrist [...] consider looking into inpatient psychiatric care at [facility] in [place]. Patient's son will be contacting his brother and they will be deciding what to do in the next day or so. Patient will be monitor closely over the weekend by Papo. Assessment & Plan (10/14/2019 1:03 PM PREPARING BOX TENDER): Uncontrolled, referral to psychiatrist. Assessment & Plan (08/26/2019 1:22 PM PREPARING BOX TENDER): Depressed, need to see psychiatry for medication adjustment. Essential (primary) hypertension 08/15/2017 Assessment & Plan (11/27/2024 2:03 PM PREPARING BOX TENDER): Episodes of hypotension. We are going to hold amlodipine. We are going to have [facility] check her blood pressure daily and report numbers in 1 week. Assessment & Plan (05/07/2023 3:57 PM CDT): Chronic and controlled without medication. Continue to monitor. Assessment & Plan (11/15/2021 10:28 AM PREPARING BOX TENDER): Stable, continue current meds Assessment & Plan (10/12/2020 11:26 AM PREPARING BOX TENDER): Stable continue meds Assessment & Plan (02/19/2020 3:30 PM CDT): Stable Assessment & Plan (11/18/2019 4:05 PM PREPARING BOX TENDER): Stable continue meds Assessment & Plan (08/26/2019 1:22 PM PREPARING BOX TENDER): Stable, continue current meds Primary osteoarthritis of right knee 08/15/2017 Assessment & Plan (05/07/2023 2:31 PM CDT): Continue Tylenol as needed for pain. Assessment & Plan (11/15/2021 10:29 AM PREPARING BOX TENDER): Patient takes Tylenol for pain. Assessment & Plan (10/12/2020 11:28 AM PREPARING BOX TENDER): Uncontrolled. Patient will hopefully get to start physical therapy soon once her insurance has been reinstated. Patient may also need to see Ortho in the near future Assessment & Plan (08/26/2019 1:24 PM PREPARING BOX TENDER): stable Unsteady gait 11/09/2016 Assessment & Plan (05/07/2023 3:58 PM CDT): Completed physical therapy. No recent falls. Assessment & Plan (11/15/2021 10:29 AM PREPARING BOX TENDER): Recommend physical therapy. Recommend using a cane Assessment & Plan (10/12/2020 11:29 AM PREPARING BOX TENDER): Uncontrolled. Patient is doing okay with her [...] daily. Assessment & Plan (08/26/2019 1:24 PM PREPARING BOX TENDER): Use cane at all times, Recommend PT. Pt will consider that. Assessment & Plan (02/02/2019 11:25 AM CDT): Order physical therapy Glucose intolerance (impaired glucose tolerance) 09/03/2016 Assessment & Plan (05/07/2023 3:57 PM CDT): Diet controlled. Labs ordered today. Assessment & Plan (11/15/2021 10:28 AM PREPARING BOX TENDER): Diet controlled, requested lab results Assessment & Plan (10/12/2020 11:27 AM PREPARING BOX TENDER): Stable, diet controlled Assessment & Plan (02/19/2020 3:30 PM CDT): Diet controlled check labs Assessment & Plan (08/26/2019 1:23 PM PREPARING BOX TENDER): Diet controlled, due for labs Obstructive sleep apnea 08/14/2016 Assessment & Plan (05/07/2023 2:30 PM CDT): Not on CPAP. Assessment & Plan (11/15/2021 10:29 AM PREPARING BOX TENDER): Stable Assessment & Plan (10/12/2020 11:28 AM PREPARING BOX TENDER): Stable, no CPAP machine at this time Assessment & Plan (08/26/2019 1:13 PM PREPARING BOX TENDER): No cpap machine Other allergic rhinitis 08/14/2016 Assessment & Plan (05/07/2023 2:30 PM CDT): Continue current management. Assessment & Plan (11/15/2021 10:29 AM PREPARING BOX TENDER): Stable Assessment & Plan (10/12/2020 11:28 AM PREPARING BOX TENDER): Stable p.r.n. meds Assessment & Plan (08/26/2019 1:23 PM PREPARING BOX TENDER): stable Atrial flutter 02/14/2016 Overview (02/08/2025): Last Assessment & Plan: Stable Last Assessment & Plan: Stable Other specified hypothyroidism 12/30/2015 Assessment & Plan (05/07/2023 2:30 PM CDT): Continue current dose of levothyroxine. Due for TSH. Assessment & Plan (11/15/2021 10:29 AM PREPARING BOX TENDER): Stable, continue meds, requested lab Assessment & Plan (10/12/2020 11:28 AM PREPARING BOX TENDER): Stable continue meds Assessment & Plan (02/19/2020 3:31 PM CDT): Check labs Assessment & Plan (08/26/2019 1:24 PM PREPARING BOX TENDER): Stable, check labs Mixed hyperlipidemia 12/30/2015 Assessment & Plan (05/07/2023 2:30 PM CDT): Diet controlled. Will continue to monitor lipid panel. Assessment & Plan (11/15/2021 10:29 AM PREPARING BOX TENDER): Diet controlled. Requested lab Assessment & Plan (10/12/2020 11:28 AM PREPARING BOX TENDER): Stable, patient is not on meds at this time Assessment & Plan (02/19/2020 3:31 PM CDT): Check labs Assessment & Plan (08/26/2019 1:23 PM PREPARING BOX TENDER): Check labs Vitamin D deficiency 12/30/2015 Assessment & Plan (05/07/2023 2:31 PM CDT): Continue vitamin-D supplement. Assessment & Plan (11/15/2021 10:30 AM PREPARING BOX TENDER): Stable continue vitamin Assessment & Plan (10/12/2020 11:29 AM PREPARING BOX TENDER): Stable continue vitamin Assessment & Plan (02/19/2020 3:31 PM CDT): Check labs Assessment & Plan (08/26/2019 1:25 PM PREPARING BOX TENDER): Continue vit d Resolved Problems Problem Noted Date Diagnosed Date Resolved Date Unspecified mood (affective) disorder ([facility]) 03/21/2020 11/15/2021 Assessment & Plan (10/12/2020 11:29 AM PREPARING BOX TENDER): Stable followed by Psychiatry Assessment & Plan [...] 2 Assessment & Plan (10/12/2020 11:28 AM PREPARING BOX TENDER): Stable continue meds Assessment & Plan (11/18/2019 4:05 PM PREPARING BOX TENDER): With patient's change in urinary symptoms I would like to hold the VESIcare and see how she does. UA in office today was negative Assessment & Plan (08/26/2019 1:24 PM PREPARING BOX TENDER): Stable, continue meds Mild neurocognitive disorder 12/20/2017 [...] 2019 Assessment & Plan (10/14/2019 1:03 PM PREPARING BOX TENDER): Referral to memory clinic at [facility]. Scores show mild decline. Assessment & Plan (08/26/2019 1:23 PM PREPARING BOX TENDER): Need to rtc for memory testing. 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 08/26/2019 Leucocytosis 03/26/2017 08/26/2019 MARTIN (dyspnea on exertion) 12/11/2016 History of IBS 09/03/2016 08/26/2019 History of radiofrequency ab lation procedure for cardiac arrhythmia 09/03/2016 08/26/2019 Vulvar dystrophy 09/03/2016 10/12/2020 Assessment & Plan (08/26/2019 1:25 PM PREPARING BOX TENDER): Stable History of rhabdomyolysis 08/14/2016 Atrial flutter (CMS/HCC) 02/14/201606/2022 Assessment & Plan (10/12/2020 11:26 AM PREPARING BOX TENDER): Stable Assessment & Plan (02/19/2020 3:30 PM CDT): Stable Assessment & Plan (08/26/2019 1:22 PM PREPARING BOX TENDER): Stable followed by cardiology Encounters Date Type Department Care Team Description 02/24/2025 8:30 AM CDT Office Visit [facility] Cardiology [address] [place] [address] Kassandra Shannon NP Atrial fibrillation, unspecified type (HCC) (Primary Dx); Mitral valve insufficiency, unspecified etiology; Hospital discharge follow-up 02/03/2025 Orders Only [facility] Cardiology [address] [place] [address] Kassandra Shannon NP 01/27/2025 1:45 PM CDT Office Visit [facility] [address] 6th [address] [place] [address] Betsy Ryan NP 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) (Primary Dx) 01/13/2025 Orders Only [facility] Scanning, Provider 01/12/2025 Documentation [facility] [address] [facility] [address] Floor [address] [place] [address] Sherly Ivey, CHARGE ATTENDANT 01/08/2025 Telephone [place] [address] [facility] [address] [place] [address] Harriett Sutherland, A 01/04/2025 2:18 PM CDT - 01/04/2025 11:59 PM CDT Hospital Encounter [facility] MRI [address] [place] [address] 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); Seizure disorder (HCC); Confusion after a seizure Discharge Disposition: Discharge to home or self care 01/04/2025 1:12 PM CDT - 01/04/2025 11:59 PM CDT Hospital Encounter [facility] Cardiac Testing [address] [place] [address] Seizure disorder (HCC); Confusion after a seizure Discharge Disposition: Discharge to home or self care 01/04/2025 Telephone [place] [address] [facility] [address] [place] [address] Vivi Patel 01/04/2025 Telephone [facility] Family Medicine [address] [address] Nan Blair PA from Last 3 Months Immunizations Immunization Administration Dates Next Due Influenza Virus Vaccine Trivalent v 07/03/2018 Influenza, Quad, Adjuvantate d, Intramuscular 07/09/2023 [...] Father JADEN ROME Colon cancer Maternal Grandmother Alzheimer's disease Mother Jenna Rome Dementia Mother Jenna Rome Diabetes Mother Jenna Rome Hearing loss Mother Jenna Rome Hypertension Mother Jenna Rome Memory loss Mother Jenna Rome Transient ischemic attack Mother Jenna Rome Cancer Paternal Grandfather large a nd small intestine cancer Alzheimer's disease Sister Pamela Salazar Depression Sister Pamela Salazar Hypertension Sister Pamela [...] on file Legal Sex Female 1:09 AM PREPARING BOX TENDER Gender Identity Female 10/05/2020 10:15 AM PREPARING BOX TENDER Sexual Orientation Straight 10/05/2020 10 :15 AM PREPARING BOX TENDER 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 Not on file Not on file Obstetrics History Last Filed Vital Signs Vital Sign Reading Time Taken Comments Blood Pressure 116/78 02/24/2025 8:31 AM CDT Pulse 73 02/24/2025 8:31 AM CDT Temperature 36.8 C (98.3 F) 01/27/2025 1:38 PM CDT Respiratory Rate 16 11/27/2024 10:05 AM PREPARING BOX TENDER Oxygen Saturation 95% 02/24/2025 8:31 AM CDT Inhaled Oxygen Concentration - - Weight 86.2 kg (190 lb) 02/24/2025 8:31 AM CDT Height 165.1 cm (5' 5 ) 02/24/2025 8:31 AM CDT Body Mass Index 31.62 02/24/2025 8:31 AM CDT Plan of Treatment Health Maintenance Due Date Last Done Comments Hepatitis B Screening 1968 DTaP/Tdap/Td Vaccine (2 - Td or Tdap) 04/08/2023 04/08/2013 Colon Cancer Screening-Colonoscopy 12/17/2023 12/16/2018, 08/07/2015 Well Visit 65+ 05/07/2024 05/07/2023, 020 06/2022, 10/12/2020, Additional history exists Covid-19 Vaccine [...] diffuse cerebral and cerebellar parenchymal volume loss. Ktmzw-[id number]-ffef-left middle cranial fossa arachnoid cyst or underlying [...] signed by Alex SALCEDO T: Report ID: [id number] Reading Location: [place] [address] Procedure Note Alex Ashton, DO - 01/05/2025 [...] diffuse cerebral and cerebellar parenchymal volume loss. Nvjmi-njseqiv-eria-left middle cranial fossa arachnoid cyst or underlyingmore [...] signed by Alex SALCEDO T: Report ID: [id number] Reading Location: [id number] [facility] MRI PROCEDURES Final Resul t * Dexa Axial Skeleton Bone Density 1 or 2 Site (05/07/2022 12:52 PM CDT) Anatomical Region Laterality Modality Body N/A Mammography 05/07/2022 1:53 PM CDT Narrative 05/07/2022 1:54 PM CDT EXAM DESCRIPTION: DEXA AXIAL SKELETON BONE DENSITY 1 OR MORE SITES REASON FOR STUDY: 71 y/o year old F with given history of screening. 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 TB: TB Report ID: [id number] Reading Location: [id number] Procedure Note MoonLanette MD - 05/07/2022 EXAM DESCRIPTION: DEXA AXIAL SKELETON BONE DENSITY 1 OR MORE SITES REASON FOR STUDY: 71 y/o year old F with given history ofscreening. 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 TB: TB Report ID: [id number] Reading Location: [id number] Nan [place] IMDebbie DXA PROCEDURES Final Resul t * COLONOSCOPY (12/16/2018) Pathologist [facility] Colonoscopy Abnormal Historical Provider HEALTH MAINTENANCE Final Result * MAMMOGRAPHY (02/04/2018) Pathologist [facility] Mammogram Normal Historical Provider HEALTH MAINTENANCE Final Result * Hepatitis C antibody (04/24/2017 11:05 AM CDT) Hep C Ab NONREACT NONREACTIVE 04/24/2017 8:34 PM CDT [facility] HISTORICAL RESULTS Comment: Siemens [employer] using NIKUNJ (chemiluminescent immunoassay) technology. NONREACTIVE: Antibodies [...] GENERAL ORD ERABLES Final Result [facility] HISTORICAL RESULTS from Last 3 Months or Most Recently Relevant to Health Maintenance Insurance MEDICARE [facility] MEDICARE ADVANTAGE [facility] MEDICARE ADVANTAGE [facility] MEDICARE ADVANTAGE [place] [id number] Advance Directives For more information, please contact: [phone] Documents on File Type Date Recorded Patient Working Foreman Expl anation ADVANCE DIRECTIVE 12/07/2020 3:24 PM DNR ADVANCE DIRECTIVE 09/25/2013 12:00 AM [facility] OF VICE PRESIDENT MEDIA RELATIONS FINANCIAL/MEDICAL Care Teams Electrician Research Relationship Specialty Start Date End Date Nan Blair PA [address] [place] [id number] PCP - General Family Medicine 07/03/22 Jorge Jefferson MD [address] [place] [address] Consulting Physician Family Medicine 03/09/19 Lizzie Collins MD [address] [address] Bus Repair Supervisor Cardiology 05/18/19 Freeman Chung MD [address] [place] [address] Referring Physician Geriatric Psychiatry 06/09/20 Maribel Andrade MD [address] [address] Consulting Physician Anesthesiology 12/31/20 [place] [address] [place] [address] Psychiatry 01/11/22
--- OUTSIDE RECORDS SUMMARY | 2025-02-25 15:16 | XMS_ITS | Encounter Summary ---
Author Organization [facility] Facility Care Team Providers Care Racing Secretary Name Role Phone Nan Blair Primary Care Provider [phone] Jorge Jefferson MD Primary Care Provid er Nan Blair Unavailable [phone] Nan Blair Primary Care Provider [phone] Jorge Jefferson MD Unavailable + [phone] Lizzie Collins MD Unavailable [phone] Freeman Chung MD Unavailable [phone] Maribel Andrade MD Unavailable [phone] Guy Rosen MD Unavailable Miscellaneous, Not In File Primary Care Provider Unavailable Nan Blair Primary Care Provider [phone] Encounter Details Date Type Department Care Team (Latest Contact Info) Description 04/17/2017 Orders Only [facility] CLINCON[facility] ProviderJulieta MD [address] [place] [id number] Social History Tobacco Use Types Packs/Day Years Used Date Smoking Tobacco: Never Assessed Comments Unknown Sex and Gender Information Value Date Recorded Sex Assigned at Not on file Legal Sex Female 1:09 AM CUSTOMER EXPERIENCE CONSULTANT Gender Identity Female 10/05/2020 10:15 AM CUSTOMER EXPERIENCE CONSULTANT Sexual Orientation Straight 10/05/2020 10 :15 AM CUSTOMER EXPERIENCE CONSULTANT documented as of this encounter Plan of [...] on filedocumented in this encounter Care Teams Racing Secretary Relationship Specialty Start Date End Date Nan Blair PA [address] [place] [address] PCP - General Physician Waredresser 04/28/18 02/01/19 Jorge Jefferson MD [address] [place], [place] [address] PCP - General Family Medicine 02/02/19 03/08/19 Nan Blair PA [address] [place] [address] PCP - General Physician Waredresser 03/09/19 05/03/22 Miscellaneous, Not In File PCP - General 05/04/22 07/02/22 Nan Blair PA [address] [facility], [place] [address] PCP - General Family Medicine 07/03/22 Nan Blair PA [address] [place], [place] [address] Physician Waredresser Physician Waredresser 02/02/19 9 Jorge Jefferson MD [address] [place] [address] Consulting Physician Family Medicine 03/09/19 Lizzie Collins MD [address] [address] Upper Marker Cardiology 05/18/19 Freeman Chung MD [address] [place] [address] Referring Physician Geriatric Psychiatry 06/09/20 Maribel Andrade MD [address] [address] Consulting Physician Anesthesiology 12/31/20 Guy Rosen MD [address] [place] [address] Psychiatry 01/11/22 documented as of this encounter
--- NOTE | 2025-02-25 15:17 | ECG_ITS ---
Test Date: 2025-02-25 15:34:05 Measurements Intervals [place] Rate: 64 P: 0 FL: 0 QRS: -8 QRSD: 104 T: 6 QT: 356 QTc: 370 Interpretive Statements ATRIAL FIBRILLATION NONSPECIFIC T-WAVE ABNORMALITY ABNORMAL RHYTHM ECG Compared to ECG 02/09/2025 11:45:23 NO SIGNIFICANT CHANGES Electronically Signed On 02-26-2025 12:36:13 CDT by Niecy Ashton M.D.
--- OUTSIDE RECORDS SUMMARY | 2025-02-25 15:17 | XMS_ITS | Encounter Summary ---
Author Organization [facility] Address [address] [facility] [address] [place] [address] Phone Care Team Providers Care Cat Driver Name Role Phone Nan Blair Primary Care Provider [phone] oJrge Jefferson MD Unavailable + [phone] Lizzie Collins MD Unavailable [phone] Freeman Chung MD Unavailable [phone] Maribel Andrade MD Unavailable [phone] Guy Rosen MD Unavailable Miscellaneous, Not In File Primary Care Provider Unavailable Nan Blair Primary Care Provider [phone] Encounter Details Date Type Department Care Team [...] on file Legal Sex Female 1:09 AM GARAGE LABORER Gender Identity Female 10/05/2020 10:15 AM GARAGE LABORER Sexual Orientation Straight 10/05/2020 10 :15 AM GARAGE LABORER Occupation Industry Job Start Date Job End [...] on filedocumented in this encounter Care Teams Cat Driver Relationship Specialty Start Date End Date Nan Blair PA [address] [place] [address] PCP - General Physician Spring Salvage Worker 03/09/19 05/03/22 Miscellaneous, Not In File PCP - General 05/04/22 07/02/22 Nan Blair PA [address] [place] [address] PCP - General Family Medicine 07/03/22 Jorge Jefferson MD [address] [place] [address] Consulting Physician Family Medicine 03/09/19 Lizzie Collins MD [address] [facility] [place] [address] Banking Paralegal Cardiology 05/18/19 Freeman Chung MD [address] [place] [address] Referring Physician Geriatric Psychiatry 06/09/20 Maribel Andrade MD [address] [facility] [address] [place] [address] Consulting Physician Anesthesiology 12/31/20 Guy Rosen MD [address] [place] [address] Psychiatry 01/11/22 documented as of this encounter
--- OUTSIDE RECORDS SUMMARY | 2025-02-25 15:17 | XMS_ITS | Encounter Summary ---
Author Organization [facility] Address [address] [facility] [address] [place] [address] Phone Care Team Providers Care Pedicab Driver Name Role Phone Nan Blair Primary Care Provider [phone] Jorge Jefferson MD Unavailable + [phone] Lizzie [place] MD Unavailable [phone] Freeman Chung MD Unavailable [phone] Maribel Andrade MD Unavailable [phone] Guy Rosen MD Unavailable Miscellaneous, Not In File Primary Care Provider Unavailable Nan Blair Primary Care Provider [phone] Encounter Details Date Type Department Care Team [...] on file Legal Sex Female 1:09 AM CANDY CUTTER HAND Gender Identity Female 10/05/2020 10:15 AM CANDY CUTTER HAND Sexual Orientation Straight 10/05/2020 10 :15 AM CANDY CUTTER HAND Occupation Industry Job Start Date Job End [...] on filedocumented in this encounter Care Teams Pedicab Driver Relationship Specialty Start Date End Date Nan Blair PA [address] [place] [address] PCP - General Physician Cooking Instructor 03/09/19 05/03/22 Miscellaneous, Not In File PCP - General 05/04/22 07/02/22 Nan Blair PA [address] [place] [address] PCP - General Family Medicine 07/03/22 Jorge Jefferson MD [address] [place] [address] Consulting Physician Family Medicine 03/09/19 Lizzie [place] MD [address] [place] [address] [employer] Cardiology 05/18/19 Freeman Chung MD [address] [place] [address] Referring Physician Geriatric Psychiatry 06/09/20 Maribel Andrade MD [address] [address] Consulting Physician Anesthesiology 12/31/20 Guy Rosen MD [address] [place] [address] Psychiatry 01/11/22 documented as of this encounter
--- OUTSIDE RECORDS SUMMARY | 2025-02-25 15:17 | XMS_ITS | Clinical Summary ---
Author Organization [facility] [employer] Address [address] [place] [address] Care Team Providers Care Cane Piler Name Role Phone Nan Blair Primary Care Provider [phone] [facility] [employer],non-owned Affiliates and Associated Physician Practices is amultiple site organization consisting of ambulatory clinics and hospital sitesin [place], [place], [place] and [place]. This disclosure is being madepursuant to the Care Everywhere program and may not contain all information available regarding this patient. Last updated 18.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 BPM DEVELOPER Gender Identity Not on file Sexual Orientation [...] patient's age to complete this topic Insurance [facility] MEDICARE ADV Member Subscriber Plan / Payer (Ef fective 2024-Present) Name:Kriss Worley Relation to Subscriber:Self Name:Kriss Worley Payer ID:[id number] (NAIC) Type:Medicare-Managed Care Address: [place] [id number] [place] [phone] Advance Directives * Full Code (Latest Code Status on File) Date Activated Date Inactivated Comments 03/21/2020 5:53 PM 03/25/2020 5:03 PM * Full Code Date Activated Date Inactivated Comments 03/19/2020 6:05 PM 03/21/2020 5:36 PM Care Teams Cane Piler Relationship Specialty Start Date End Date Nan Blair PA PCP - General 05/08/20
[2025-02-25 15:26] VITALS: BP 119/71; PULSE 66; RESP 16; TEMP 37.1; O2SAT 100
[2025-02-25 15:53] LABS: Basophils Absolute Auto 0.1 K/mm3 (0.0-0.1); Basophils Percent Auto 0.6 % (0.2-1.2); Eosinophils Absolute Auto 0.1 K/mm3 (0-0.3); Eosinophils Percent Auto 0.8 % (0-4.4); Hematocrit 37.4 % (37.0-47.0); Hemoglobin 11.3 g/dL (12.0-15.0); Immature Granulocyte Absolute 0.02 K/mm3 (0.00-0.031); Immature Granulocyte Percent A 0.3 % (0-0.5); Lymphocytes Absolute Auto 1.36 K/mm3 (0.9-3.2); Lymphocytes Percent Auto 17.6 % (18.3-44.2); Mean Corpuscular HGB Conc 30.2 g/dl (32-36); Mean Corpuscular Hemoglobin 25.4 pg (26-34); Mean Platelet Volume 9.3 fl (7.4-10.4); Monocytes Absolute Auto 0.4 K/mm3 (0.1-0.6); Monocytes Percent Auto 5.3 % (2.6-8.5); Neutrophils Absolute Auto 5.8 K/mm3 (1.3-6.7); Neutrophils Percent Auto 75.4 % (45.5-73.1); Platelet Count Result 358 k/mm3 (150-375); Red Blood Count 4.45 M/mm3 (4.2-5.4); Red Cell Distribution Width 15.5 % (11.5-14.5); White Blood Count 7.7 K/mm3 (4.5-10.0)
[2025-02-25 16:09] LABS: Alanine Aminotransferase 19 U/L (6-35); Albumin Level 4.4 g/dL (3.5-5.1); Alkaline Phosphatase 152 U/L (38-126); Anion Gap 9 mmol/L (4-12); Aspartate Amino Transferase 29 U/L (14-36); Bilirubin,Total 0.5 mg/dL (0.2-1.3); Blood Urea Nitrogen 9 mg/dL (7-17); Calcium 9.8 mg/dL (8.4-10.2); Carbon Dioxide 26 mmol/L (22-30); Chloride 103 mmol/L (98-107); Estimated CRCL calculation 66 ml/min; Estimated Glomerular Filt Rate > 60; Glucose 106 mg/dL (65-110); Lipase 42 U/L (23-300); Potassium 4.3 mmol/L (3.4-5.0); Sodium 138 mmol/L (137-145)
[2025-02-25 16:11] LABS: INR 1.2; Partial Thromboplastin Time 31.1 Seconds (22.3-36.8); Prothrombin Time 15.8 Seconds (11.1-14.7)
[2025-02-25 16:20] LABS: Troponin I < 0.012 ng/mL (0.000-0.034)
--- NOTE | 2025-02-25 16:37 | ED_ITS ---
HPI - Chest Pain General Chief Complaint: Chest Pain <Lalitha Burgess PA-C - Last Filed: 02/25/25 17:06> Stated Complaint: Sternal chest pressure-resolved <Lalitha Burgess PA-C - Last Filed: 02/25/25 17:06> Time Seen by Provider: 02/25/25 16:52 <Lalitha Burgess PA-C - Last Filed: 02/25/25 17:06> Focused HPI: Patient is a 74 y/o female, with PMH of AFIB on diltiazem/eliquis, dementia, who presents to the ED with report of CP/palpitations. Patient is a resident of [facility]. she reports she had an episode of palpitations earlier today. Unable to describe the palpitations further, but states it felt as though her heart was not beating normally. She states this lasted for 5-10 minutes. Patient reported to triage nurse that she had had an episode of chest pain earlier today as well, midsternal, nonradiating, described as a pressure, lasted approximately 15-30 minutes. Son at bedside reports that the facility stated patient has been having these symptoms over the past couple of days. Patient also had an episode of dizziness/ lightheadedness after receiving her diltiazem today. Patient sees cardiology here, saw Kassandra Shannon BUILDING CONSTRUCTION INSPECTOR in office yesterday. patient denies any symptoms currently. Denies recent cough or cold symptoms. GENERAL: Elderly but well-appearing, well-nourished, and in no acute distress. HEAD: Normocephalic, atraumatic. CHEST: Clear to auscultation. ?No respiratory distress. HEART: Regular rate with irregular rhythm.? NEURO: ?Alert and oriented x3. Patient screened in triage and initial orders placed.? ?Additional care and disposition to be based upon?diagnostic testing and treatment. <Lalitha Burgess PA-C - Last Filed: 02/25/25 17:06> Focused HPI: Patient is a 74 y/o female, with PMH of AFIB on diltiazem/eliquis, dementia, who presents to the ED with report of CP/palpitations. Patient is a resident of [facility]. She reports she had an episode of palpitations earlier today. Unable to describe the palpitations further, but states it felt as though her heart was not beating normally. She states this lasted for 5-10 minutes. Patient reported to triage nurse that she had had an episode of chest pain earlier today as well, midsternal, nonradiating, described as a pressure, lasted approximately 15-30 minutes. Son at bedside reports that the facility stated patient has been having these symptoms over the past couple of days. Patient also had an episode of dizziness/ lightheadedness after receiving her diltiazem today. Patient sees cardiology here, saw Kassandra Shannon BUILDING CONSTRUCTION INSPECTOR in office yesterday. patient denies any symptoms currently. Denies recent cough or cold symptoms. GENERAL: Elderly but well-appearing, well-nourished, and in no acute distress. HEAD: Normocephalic, atraumatic. CHEST: Clear to auscultation. ?No respiratory distress. HEART: Regular rate with irregular rhythm.? NEURO: ?Alert and oriented x3. Patient screened in triage and initial orders placed.? ?Additional care and disposition to be based upon?diagnostic testing and treatment. <Karla Frances PA-C - Last Filed: 02/25/25 20:34> Source: patient and family <TON Tapia Last Filed: 02/25/25 17:06> Mode of arrival: EMS <TON Tapia Last Filed: 02/25/25 17:06> Limitations: no limitations <TON Tapia Last Filed: 02/25/25 17:06> Related Data Home Medications: Home Medications ?Medication ?Instructions ?Recorded ?Confirmed ?Last Taken ?Type aspirin 81 mg chewable tablet 81 mg PO DAILY 05/03/24 01/29/25 01/28/25 History cyanocobalamin (vitamin B-12) 500 500 mcg PO DAILY 05/03/24 01/29/25 01/28/25 History mcg tablet donepezil 10 mg tablet 10 mg PO DAILY 05/03/24 01/29/25 01/28/25 History levothyroxine 88 mcg tablet 88 mcg PO DAILY 05/03/24 01/29/25 01/28/25 History albuterol 90 mcg/actuation aerosol 180 mcg inhalation Q4H PRN wheezing 01/29/25 01/29/25 Unknown History inhaler cholecalciferol (vitamin D3) 25 25 mcg PO DAILY 01/29/25 01/29/25 01/28/25 History mcg (1,000 unit) tablet lamotrigine 25 mg tablet 25 mg PO Q12H 01/29/25 01/29/25 01/28/25 History melatonin 10 mg capsule 5 mg PO DAILY 01/29/25 01/29/25 01/27/25 History naltrexone 50 mg tablet 50 mg PO Q24H 01/29/25 01/29/25 01/28/25 History <TON Tapia Last Filed: 02/25/25 17:06> Allergies/Adverse Reactions: Allergies Allergy/AdvReac Type Severity Reaction Status Date / Time amoxicillin Allergy Unknown Verified 02/25/25 15:42 codeine Allergy Dizziness Verified 02/25/25 15:42 lithium Allergy kidney Verified 02/25/25 15:42 failure morphine Allergy Vomiting Verified 02/25/25 15:42 olanzapine Allergy Confusion Verified 02/25/25 15:42 Penicillins Allergy Hives Verified 02/25/25 15:42 sulfamethoxazole (From Allergy Unknown Verified 02/25/25 15:42 Bactrim) trimethoprim (From Bactrim) Allergy Unknown Verified 02/25/25 15:42 <TON Tapia Last Filed: 02/25/25 17:06> Review of Systems 2 Review of Systems: All systems reviewed & are unremarkable except as noted in HPI and below <TON Mcmullen Last Filed: 02/25/25 20:34> [facility] Past Medical History Medical History: Medical History Dementia of the Alzheimer's type Accidental fall <TON Tapia Last Filed: 02/25/25 17:06> Family History Family History: Family History Mother Hypertension Alzheimer dementia Sibling Hypertension <TON Tapia Last Filed: 02/25/25 17:06> Social History Social History: Social History Smoking status: Never smoker Alcohol intake: current Drinks per week: 1 Substance use: never Substance use type: does not use Do You Feel Safe in your Home?: Yes Lack of Transportation: No Lack of Food: Never True Current Housing: I Have Housing Concerned About Future Housing: No Difficulty Paying Gas/Electric Bills: No Difficulty Paying for Meds: No Currently Unemployed: No Education: Bachelor's Degree Difficulty w/ Childcare or Family Care: No Spiritual care concerns: No <Lalitha Burgess PA-C - Last Filed: 02/25/25 17:06> Exam 2 Narrative: GENERAL: Elderly, well-nourished, and in no acute distress. HEAD: Normocephalic, atraumatic. EYES: EOMI. CHEST: Clear to auscultation. No respiratory distress. No wheezes rales or rhonchi HEART: Irregularly irregular. No murmur heard. Normal peripheral pulses. EXTREMITIES: Normal range of motion. No edema. SKIN: Warm, dry, no rash. NEURO: No focal deficits. Alert and oriented x3. PSYCH: Normal mood and affect <TON Mcmullen Last Filed: 02/25/25 20:34> Course Course Emergency Course: patient and family updated on her workup. She is currently resting comfortably without complaints <TON Mcmullen Last Filed: 02/25/25 20:34> Consultations Consultation #1: Spoke with cardiology front end wheel loader operator. No further recommendations at this time. Follow up in clinic <TON Mcmullen Last Filed: 02/25/25 20:34> Date: 02/25/25 <TON Mcmullen Last Filed: 02/25/25 20:34> Vital Signs Vital signs: Vital Signs Temperature 98.7 F 02/25/25 15:26 Pulse Rate 66 02/25/25 15:26 Respiratory Rate 16 02/25/25 15:26 Blood Pressure 119/71 02/25/25 15:26 Pulse Oximetry 100 02/25/25 15:26 Oxygen Delivery Room Air 02/25/25 15:26 Temperature 98.7 F 02/25/25 15:26 Pulse Rate 80 02/25/25 19:32 Respiratory Rate 15 02/25/25 19:32 Blood Pressure 147/86 H 02/25/25 19:32 Pulse Oximetry 97 02/25/25 19:32 Oxygen Delivery Room Air 02/25/25 19:31 <Lalitha Burgess PA-C - Last Filed: 02/25/25 17:06> Vital Signs Temperature 98.7 F 02/25/25 15:26 Pulse Rate 66 02/25/25 15:26 Respiratory Rate 16 02/25/25 15:26 Blood Pressure 119/71 02/25/25 15:26 Pulse Oximetry 100 02/25/25 15:26 Oxygen Delivery Room Air 02/25/25 15:26 Temperature 98.7 F 02/25/25 15:26 Pulse Rate 80 02/25/25 19:32 Respiratory Rate 15 02/25/25 19:32 Blood Pressure 147/86 H 02/25/25 19:32 Pulse Oximetry 97 02/25/25 19:32 Oxygen Delivery Room Air 02/25/25 19:31 <TON Mcmullen Last Filed: 02/25/25 20:34> MDM - Chest Pain MDM Narrative Medical decision making narrative: MSE by CHANNING in triage. <TON Tapia Last Filed: 02/25/25 17:06> MSE by CHANNING in triage. Patient presents to the ER for an episode of lightheadedness, chest discomfort, palpitations. Asymptomatic on my evaluation. Patient is in atrial fibrillation, but rate controlled. Known history of this. CBC and metabolic panel without concerning findings. TSH is normal. Baseline and 3 hour troponin are negative. Chest x-ray without acute cardiopulmonary abnormality. <TON Mcmullen Last Filed: 02/25/25 20:34> Differential Diagnosis Differential diagnosis: Likely stable angina, atypical chest pain and other (Arrhythmia, hypotension, adverse reaction to medication, bradycardia) <TON Mcmullen Last Filed: 02/25/25 20:34> Lab Data Attestation: I reviewed the patient's lab results. <TON Mcmullen Last Filed: 02/25/25 20:34> Result diagrams: 02/25/25 15:44 02/25/25 15:44 <Lalitha Burgess PA-C - Last Filed: 02/25/25 17:06> Labs: Lab Results 02/25/25 02/25/25 Range/Units 15:44 18:13 WBC 7.7 (4.5-10.0) K/mm3 RBC 4.45 (4.2-5.4) M/mm3 Hgb 11.3 L (12.0-15.0) g/dL Hct 37.4 (37.0-47.0) % MCV 84.0 (80-100) fl MCH 25.4 L (26-34) pg MCHC 30.2 L (32-36) g/dl RDW 15.5 H (11.5-14.5) % Plt Count 358 (150-375) k/mm3 MPV 9.3 (7.4-10.4) fl Immature Gran % (Auto) 0.3 (0-0.5) % Neut % (Auto) 75.4 H (45.5-73.1) % Lymph % (Auto) 17.6 L (18.3-44.2) % [place] % (Auto) 5.3 (2.6-8.5) % Eos % (Auto) 0.8 (0-4.4) % Baso % (Auto) 0.6 (0.2-1.2) % Lymph # (Auto) 1.36 (0.9-3.2) K/mm3 [place] # (Auto) 0.4 (0.1-0.6) K/mm3 Eos # (Auto) 0.1 (0-0.3) K/mm3 Baso # (Auto) 0.1 (0.0-0.1) K/mm3 Abs Immat Gran (auto) 0.02 (0.00-0.031) K/mm3 Absolute Neuts (auto) 5.8 (1.3-6.7) K/mm3 Absolute Nucleated RBC 0.000 (0.0-0.012) K/mm3 Nucleated RBC % 0.0 (0.0-0.2) % PT 15.8 H (11.1-14.7) Seconds INR 1.2 APTT 31.1 (22.3-36.8) Seconds Sodium 138 (137-145) mmol/L Potassium 4.3 (3.4-5.0) mmol/L Chloride 103 (98-107) mmol/L Carbon Dioxide 26 (22-30) mmol/L Anion Gap 9 (4-12) mmol/L BUN 9 (7-17) mg/dL Creatinine 0.69 L (0.7-1.0) mg/dL Estim Creat Clear Calc 66 ml/min Estimated GFR > 60 (59 - ) Glucose 106 (65-110) mg/dL Calcium 9.8 (8.4-10.2) mg/dL Magnesium 1.9 (1.6-2.3) mg/dL Total Bilirubin 0.5 (0.2-1.3) mg/dL AST 29 (14-36) U/L ALT 19 (6-35) U/L Alkaline Phosphatase 152 H (38-126) U/L Troponin I < 0.012 < 0.012 (0.000-0.034) ng/mL Total Protein 8.0 (6.3-8.2) g/dL Albumin 4.4 (3.5-5.1) g/dL Lipase 42 (23-300) U/L TSH (Reflex) 1.870 (0.465-4.68) uIU/mL <Lalitha Burgess PA-C - Last Filed: 02/25/25 17:06> Lab Results 02/25/25 02/25/25 Range/Units 15:44 18:13 WBC 7.7 (4.5-10.0) K/mm3 RBC 4.45 (4.2-5.4) M/mm3 Hgb 11.3 L (12.0-15.0) g/dL Hct 37.4 (37.0-47.0) % MCV 84.0 (80-100) fl MCH 25.4 L (26-34) pg MCHC 30.2 L (32-36) g/dl RDW 15.5 H (11.5-14.5) % Plt Count 358 (150-375) k/mm3 MPV 9.3 (7.4-10.4) fl Immature Gran % (Auto) 0.3 (0-0.5) % Neut % (Auto) 75.4 H (45.5-73.1) % Lymph % (Auto) 17.6 L (18.3-44.2) % [place] % (Auto) 5.3 (2.6-8.5) % Eos % (Auto) 0.8 (0-4.4) % Baso % (Auto) 0.6 (0.2-1.2) % Lymph # (Auto) 1.36 (0.9-3.2) K/mm3 [place] # (Auto) 0.4 (0.1-0.6) K/mm3 Eos # (Auto) 0.1 (0-0.3) K/mm3 Baso # (Auto) 0.1 (0.0-0.1) K/mm3 Abs Immat Gran (auto) 0.02 (0.00-0.031) K/mm3 Absolute Neuts (auto) 5.8 (1.3-6.7) K/mm3 Absolute Nucleated RBC 0.000 (0.0-0.012) K/mm3 Nucleated RBC % 0.0 (0.0-0.2) % PT 15.8 H (11.1-14.7) Seconds INR 1.2 APTT 31.1 (22.3-36.8) Seconds Sodium 138 (137-145) mmol/L Potassium 4.3 (3.4-5.0) mmol/L Chloride 103 (98-107) mmol/L Carbon Dioxide 26 (22-30) mmol/L Anion Gap 9 (4-12) mmol/L BUN 9 (7-17) mg/dL Creatinine 0.69 L (0.7-1.0) mg/dL Estim Creat Clear Calc 66 ml/min Estimated GFR > 60 (59 - ) Glucose 106 (65-110) mg/dL Calcium 9.8 (8.4-10.2) mg/dL Magnesium 1.9 (1.6-2.3) mg/dL Total Bilirubin 0.5 (0.2-1.3) mg/dL AST 29 (14-36) U/L ALT 19 (6-35) U/L Alkaline Phosphatase 152 H (38-126) U/L Troponin I < 0.012 < 0.012 (0.000-0.034) ng/mL Total Protein 8.0 (6.3-8.2) g/dL Albumin 4.4 (3.5-5.1) g/dL Lipase 42 (23-300) U/L TSH (Reflex) 1.870 (0.465-4.68) uIU/mL <TON Mcmullen Last Filed: 02/25/25 20:34> Imaging Data Radiologist's impression: ITS Impressions Chest X-Ray 02/25/25 16:40 IMPRESSION: No acute cardiopulmonary pathology. <TON Mcmullen Last Filed: 02/25/25 20:34> ECG Data EKG #1: ECG completion date: 02/25/25 <TON Mcmullen Last Filed: 02/25/25 20:34> EKG Interpretation: normal rate, atrial fibrillation, no ST changes and normal QT <TON Mcmullen Last Filed: 02/25/25 20:34> Critical Care Time Critical Care Time Critical Care Time: No <TON Mcmullen Last Filed: 02/25/25 20:34> Discharge Plan Discharge Clinical Impression: Palpitations, Lightheadedness <TON Tapia Last Filed: 02/25/25 17:06> Patient Disposition: NH Fdc/Asst Living <TON Tapia Last Filed: 02/25/25 17:06> Condition: Stable <TON Tapia Last Filed: 02/25/25 17:06> Instructions: Chest Pain (ED), Heart Palpitations (ED) <TON Tapia Last Filed: 02/25/25 17:06> Additional Instructions: Return to the emergency department if you experience fever, chest pain, shortness of breath, abdominal pain with nausea and vomiting, weakness, numbness, you pass out, or any other symptoms that are concerning to you. The co founder & ceo on-call recommends continuing the dose of your medications as prescribed. Follow up in clinic for further management <TON Tapia Last Filed: 02/25/25 17:06> Patient Language: Citizen [place] <Lalitha Burgess PA-C - Last Filed: 02/25/25 17:06> Prescriptions: No Action donepezil 10 mg tablet 10 mg PO DAILY levothyroxine 88 mcg tablet 88 mcg PO DAILY cyanocobalamin (vitamin B-12) 500 mcg tablet 500 mcg PO DAILY aspirin 81 mg tablet,chewable 81 mg PO DAILY melatonin 10 mg capsule 5 mg PO DAILY cholecalciferol (vitamin D3) 25 mcg (1,000 unit) tablet 25 mcg PO DAILY naltrexone 50 mg tablet 50 mg PO Q24H lamotrigine 25 mg tablet 25 mg PO Q12H Patient Comments: Patient not sure on frequency. See pharmacy instructions albuterol 90 mcg/actuation aerosol 180 mcg inhalation Q4H PRN (Reason: wheezing) Rx Instructions: 2 puffs q4h as needed for wheezing. Eliquis 5 mg Tablet 5 mg PO Q12HR Qty: 60 1RF memantine 10 mg tablet 10 mg PO QHS Qty: 30 1RF diltiazem HCl [Cardizem LA] 240 mg tablet extended release 24 hr 240 mg PO QAM Qty: 30 1RF <Lalitha Burgess PA-C - Last Filed: 02/25/25 17:06> Follow-up/Referrals: Johnnie,ROSEMARY Killian [Primary Care Provider] - Kassandra Shannon APN-C [Advanced Practice Nurse] - <Lalitha Burgess PA-C - Last Filed: 02/25/25 17:06> Stand Alone Forms: Halfway Discharge <Lalitha Burgess PA-C - Last Filed: 02/25/25 17:06>
[2025-02-25 17:26] LABS: Magnesium 1.9 mg/dL (1.6-2.3)
--- NOTE | 2025-02-25 18:04 | ECG_ITS ---
Test Date: 2025-02-25 18:16:13 Measurements Intervals [place] Rate: 82 P: 0 SD: 0 QRS: 2 QRSD: 94 T: 72 QT: 387 QTc: 452 Interpretive Statements ATRIAL FIBRILLATION NONSPECIFIC ST & T-WAVE ABNORMALITY BASELINE ARTIFACT LIMITS INTERPRETATION Compared to ECG 02/25/2025 15:34:05 No significant changes Electronically Signed On 02-26-2025 12:39:56 CDT by Niecy Ashton M.D.
[2025-02-25 18:07] VITALS: BP 126/71; PULSE 77; RESP 16; O2SAT 100
[2025-02-25 18:47] LABS: Troponin I < 0.012 ng/mL (0.000-0.034)
[2025-02-25 19:31] VITALS: PULSE 71; O2SAT 99
[2025-02-25 19:32] VITALS: BP 147/86; PULSE 80; RESP 15; O2SAT 97
--- OUTSIDE RECORDS SUMMARY | 2025-02-25 20:29 | XMS_ITS | Encounter Summary ---
Author Organization [facility] Facility Care Team Providers Care Agricultural Plow Operator Name Role Phone Nan lBair Primary Care Provider [phone] Jorge Jefferson MD Primary Care Provid er Nan Blair Unavailable [phone] Nan Blair Primary Care Provider [phone] Jorge Jefferson MD Unavailable + [phone] Lizzie Collins MD Unavailable [phone] Freeman Chung MD Unavailable [phone] Maribel Andrade MD Unavailable [phone] Guy Rosen MD Unavailable Miscellaneous, Not In File Primary Care Provider Unavailable Nan Blair Primary Care Provider [phone] Encounter Details Date Type Department Care Team (Latest Contact Info) Description 04/17/2017 Orders Only [facility] CLINCONV ProviderJulieta MD [address] [place] [id number] Social History Tobacco Use Types Packs/Day Years Used Date Smoking Tobacco: Never Assessed Comments Unknown Sex and Gender Information Value Date Recorded Sex Assigned at Not on file Legal Sex Female 1:09 AM INSPECTOR RUBBER STAMP DIE Gender Identity Female 10/05/2020 10:15 AM INSPECTOR RUBBER STAMP DIE Sexual Orientation Straight 10/05/2020 10 :15 AM INSPECTOR RUBBER STAMP DIE documented as of this encounter Plan of [...] on filedocumented in this encounter Care Teams Agricultural Plow Operator Relationship Specialty Start Date End Date Nan Blair PA [address] [place] [address] PCP - General Physician Oil Separator 04/28/18 02/01/19 Jorge Jefferson MD [address] [place], [place] [address] PCP - General Family Medicine 02/02/19 03/08/19 Nan Blair PA [address] [place] [address] PCP - General Physician Oil Separator 03/09/19 05/03/22 Miscellaneous, Not In File PCP - General 05/04/22 07/02/22 Nan Blair PA [address] [facility], [place] [address] PCP - General Family Medicine 07/03/22 Nan Blair PA [address] [place], [place] [address] Physician Oil Separator Physician Oil Separator 02/02/19 9 Jorge Jefferson MD [address] [place] [address] Consulting Physician Family Medicine 03/09/19 Lizzie Collins MD [address] [address] Sanitation Laborer Cardiology 05/18/19 Freeman Chung MD [address] [place] [address] Referring Physician Geriatric Psychiatry 06/09/20 Maribel Andrade MD [address] [address] Consulting Physician Anesthesiology 12/31/20 Guy Rosen MD [address] [place] [address] Psychiatry 01/11/22 documented as of this encounter
--- OUTSIDE RECORDS SUMMARY | 2025-02-25 20:29 | XMS_ITS | Clinical Summary ---
Author Organization [facility] Address [address] [place] [address] Care Team Providers Care Gameroom Technician Name Role Phone Jorge Jefferson MD Unavailable [phone] Lizzie Collins MD Unavailable [phone] Freeman Chung MD Unavailable [phone] Maribel Andrade MD Unavailable [phone] Guy Rosen MD Unavailable Nan Blair Primary Care Provider [phone] Allergies Active Allergy Reactions Criticality Noted Date Comments Amoxicillin Unknown 02/02/2019 Codeine Other (See comments),Dizziness,Naus ea And Vomiting,Unknown Low 03/16/2016 Spaced out and sick to stomach Spaced out and sick to stomach confusion, n/v [place] Other (See comments),Unknown Low 02/02/2019 Severe reaction-Kidney [...] 11/27/2024 Assessment & Plan (11/27/2024 1:17 PM LOCKER PLANT ATTENDANT): Patient had a seizure 1 year ago. [...] 10/12/2020 Assessment & Plan (11/27/2024 10:55 AM LOCKER PLANT ATTENDANT): Progressing. Patient will continue Namenda and Aricept. [...] ASL Assessment & Plan (11/15/2021 10:29 AM LOCKER PLANT ATTENDANT): Worsening. Patient will continue current meds. Followed [...] not addictive. Agree with move to [facility]. Continue to work with Dr. Andrade, counselor and cognitive stimulation therapist. Assessment & Plan (10/12/2020 11:27 AM LOCKER PLANT ATTENDANT): Followed by neurology, unchanged Class 1 obesity due to exces s calories with serious comorbidity and body mass index (BMI) of 31.0 to 31.9 in adult 08/26/2019 Assessment & Plan (05/07/2023 2:29 PM CDT): Reviewed BMI Focus on healthy diet options Work on healthy changes Assessment & Plan (11/15/2021 10:28 AM LOCKER PLANT ATTENDANT): Uncontrolled. Goal of BMI is less than [...] month Assessment & Plan (10/12/2020 11:26 AM LOCKER PLANT ATTENDANT): Educated patient on healthy diet/exercise plan. Exercise [...] sugar. Assessment & Plan (08/26/2019 1:23 PM LOCKER PLANT ATTENDANT): Educated patient on healthy diet/exercise plan. Exercise [...] 05/25/2020 Assessment & Plan (11/15/2021 10:28 AM LOCKER PLANT ATTENDANT): PMH/MHA: 11/15/2021 Last pap:2012 Last mammogram: 02/04/2018 (requested report) Last dexa:02/04/2018, ordered Last colonoscopy/cologuard:08/2015, 12/16/2018 repeat 2023 Last Hep C:04/2017 Last tdap:04/08/2013 Last Prevnar/pneumovax: 05/18/2015 (13) 07/18/2011 (23) Last Shingrix: (zoster 10/07/2012) 10/16/2018, 07/03/2018 Last eye exam: 05/25/2020 Assessment & Plan (10/12/2020 11:27 AM LOCKER PLANT ATTENDANT): PMH/MHA: 10/12/2020 Last pap:2012 Last mammogram: 02/04/2018 Last dexa:02/04/2018 Last colonoscopy/cologuard:08/2015, 12/16/2018 repeat 2023 Last Hep C:04/2017 Last tdap:04/08/2013 Last Prevnar/pneumovax: 05/18/2015 (13) 07/18/2011 (23) Last Shingrix: (zoster 10/07/2012) 10/16/2018, 07/03/2018 Last eye exam: 05/25/2020 Assessment & Plan (08/26/2019 1:10 PM LOCKER PLANT ATTENDANT): PMH/MHA: 08/26/2019 Last pap:2012 Last mammogram: 02/04/2018 Last dexa:02/04/2018 Last colonoscopy/cologuard:08/2015, 12/16/2018 repeat 2023 Last Hep C:04/2017 Last tdap:04/08/2013 Last Prevnar/pneumovax: 05/18/2015 (13) 07/18/2011 (23) Last Shingrix: (zoster 10/07/2012) 10/16/2018, 07/03/2018 Last eye exam: due Recurrent major depressive disorder, in partial remission 10/13/2018 Assessment & Plan (05/07/2023 3:58 PM CDT): Chronic. Continue follow-up psychiatry. Assessment & Plan (11/15/2021 10:29 AM LOCKER PLANT ATTENDANT): Stable continue meds Assessment & Plan (10/12/2020 11:28 AM LOCKER PLANT ATTENDANT): Stable, followed by Psychiatry Assessment & Plan [...] psychiatry Assessment & Plan (10/16/2019 1:12 PM LOCKER PLANT ATTENDANT): Uncontrolled. Assessment & Plan (10/14/2019 1:02 PM LOCKER PLANT ATTENDANT): Uncontrolled. I really feel like pt is very lonely and she needs daily interaction with other people. Encouraged pt to consider a care home center to open her world to new hobbies, interactions with other. Need referral to psychiatrist. Need to see counselor within the next 2 wks. Memory issues may be related to depression. Assessment & Plan (08/26/2019 1:24 PM LOCKER PLANT ATTENDANT): Referral to psychiatrist Generalized anxiety disorder 03/12/2018 Assessment & Plan (05/07/2023 3:57 PM CDT): Chronic. Continue follow-up with psychiatrist. Assessment & Plan (11/15/2021 10:28 AM LOCKER PLANT ATTENDANT): Stable, continue current meds Assessment & Plan (10/12/2020 11:26 AM LOCKER PLANT ATTENDANT): Stable followed by Psychiatry Assessment & Plan (02/19/2020 3:30 PM CDT): Stable Assessment & Plan (11/18/2019 4:05 PM LOCKER PLANT ATTENDANT): Patient will hold lorazepam at this time. She is not having any anxiety Assessment & Plan (10/14/2019 1:03 PM LOCKER PLANT ATTENDANT): Referral psychiatrist Assessment & Plan (08/26/2019 1:22 PM LOCKER PLANT ATTENDANT): Stable Bipolar 1 disorder, depressed, moderate 11/06/19 18 Assessment & Plan (11/27/2024 1:17 PM LOCKER PLANT ATTENDANT): Chronic, stable, patient will continue her medications for Alzheimer's to include Aricept and Namenda. No additional meds needed at this time Assessment & Plan (05/07/2023 3:57 PM CDT): Chronic. Continue follow-up with psychiatrist. Assessment & Plan (11/15/2021 10:27 AM LOCKER PLANT ATTENDANT): Stable Assessment & Plan (10/12/2020 11:26 AM LOCKER PLANT ATTENDANT): Stable followed by Psychiatry Assessment & Plan (05/02/2020 2:11 PM CDT): Follow with psychiatry Assessment & Plan (02/19/2020 3:30 PM CDT): Patient has not made appointment with a psychiatrist. Patient reports she is feeling stable on her current meds. I encouraged patient to make a Psychiatry appointment Assessment & Plan (11/18/2019 4:05 PM LOCKER PLANT ATTENDANT): Uncontrolled. Increase Wellbutrin to 300 mg. Patient needs to see a psychiatrist. Patient given a list of psychiatrist in the area. I spoke with her jaspreeton not too long ago about patient needing to see the psychiatrist and also patient needing to consider moving into some type of care home center to have interactions with other people Assessment & Plan (10/16/2019 3:21 PM LOCKER PLANT ATTENDANT): Uncontrolled. Pt does not have a psychiatrist [...] into inpatient psychiatric care at [facility] in [place]. Patient's son will be contacting his brother and they will be deciding what to do in the next day or so. Patient will be monitor closely over the weekend by Papo. Assessment & Plan (10/14/2019 1:03 PM LOCKER PLANT ATTENDANT): Uncontrolled, referral to psychiatrist. Assessment & Plan (08/26/2019 1:22 PM LOCKER PLANT ATTENDANT): Depressed, need to see psychiatry for medication adjustment. Essential (primary) hypertension 08/15/2017 Assessment & Plan (11/27/2024 2:03 PM LOCKER PLANT ATTENDANT): Episodes of hypotension. We are going to hold amlodipine. We are going to have [facility] check her blood pressure daily and report numbers in 1 week. Assessment & Plan (05/07/2023 3:57 PM CDT): Chronic and controlled without medication. Continue to monitor. Assessment & Plan (11/15/2021 10:28 AM LOCKER PLANT ATTENDANT): Stable, continue current meds Assessment & Plan (10/12/2020 11:26 AM LOCKER PLANT ATTENDANT): Stable continue meds Assessment & Plan (02/19/2020 3:30 PM CDT): Stable Assessment & Plan (11/18/2019 4:05 PM LOCKER PLANT ATTENDANT): Stable continue meds Assessment & Plan (08/26/2019 1:22 PM LOCKER PLANT ATTENDANT): Stable, continue current meds Primary osteoarthritis of right knee 08/15/2017 Assessment & Plan (05/07/2023 2:31 PM CDT): Continue Tylenol as needed for pain. Assessment & Plan (11/15/2021 10:29 AM LOCKER PLANT ATTENDANT): Patient takes Tylenol for pain. Assessment & Plan (10/12/2020 11:28 AM LOCKER PLANT ATTENDANT): Uncontrolled. Patient will hopefully get to start physical therapy soon once her insurance has been reinstated. Patient may also need to see Ortho in the near future Assessment & Plan (08/26/2019 1:24 PM LOCKER PLANT ATTENDANT): stable Unsteady gait 11/09/2016 Assessment & Plan (05/07/2023 3:58 PM CDT): Completed physical therapy. No recent falls. Assessment & Plan (11/15/2021 10:29 AM LOCKER PLANT ATTENDANT): Recommend physical therapy. Recommend using a cane Assessment & Plan (10/12/2020 11:29 AM LOCKER PLANT ATTENDANT): Uncontrolled. Patient is doing okay with her [...] daily. Assessment & Plan (08/26/2019 1:24 PM LOCKER PLANT ATTENDANT): Use cane at all times, Recommend PT. Pt will consider that. Assessment & Plan (02/02/2019 11:25 AM CDT): Order physical therapy Glucose intolerance (impaired glucose tolerance) 09/03/2016 Assessment & Plan (05/07/2023 3:57 PM CDT): Diet controlled. Labs ordered today. Assessment & Plan (11/15/2021 10:28 AM LOCKER PLANT ATTENDANT): Diet controlled, requested lab results Assessment & Plan (10/12/2020 11:27 AM LOCKER PLANT ATTENDANT): Stable, diet controlled Assessment & Plan (02/19/2020 3:30 PM CDT): Diet controlled check labs Assessment & Plan (08/26/2019 1:23 PM LOCKER PLANT ATTENDANT): Diet controlled, due for labs Obstructive sleep apnea 08/14/2016 Assessment & Plan (05/07/2023 2:30 PM CDT): Not on CPAP. Assessment & Plan (11/15/2021 10:29 AM LOCKER PLANT ATTENDANT): Stable Assessment & Plan (10/12/2020 11:28 AM LOCKER PLANT ATTENDANT): Stable, no CPAP machine at this time Assessment & Plan (08/26/2019 1:13 PM LOCKER PLANT ATTENDANT): No cpap machine Other allergic rhinitis 08/14/2016 Assessment & Plan (05/07/2023 2:30 PM CDT): Continue current management. Assessment & Plan (11/15/2021 10:29 AM LOCKER PLANT ATTENDANT): Stable Assessment & Plan (10/12/2020 11:28 AM LOCKER PLANT ATTENDANT): Stable p.r.n. meds Assessment & Plan (08/26/2019 1:23 PM LOCKER PLANT ATTENDANT): stable Atrial flutter 02/14/2016 Overview (02/08/2025): Last Assessment & Plan: Stable Last Assessment & Plan: Stable Other specified hypothyroidism 12/30/2015 Assessment & Plan (05/07/2023 2:30 PM CDT): Continue current dose of levothyroxine. Due for TSH. Assessment & Plan (11/15/2021 10:29 AM LOCKER PLANT ATTENDANT): Stable, continue meds, requested lab Assessment & Plan (10/12/2020 11:28 AM LOCKER PLANT ATTENDANT): Stable continue meds Assessment & Plan (02/19/2020 3:31 PM CDT): Check labs Assessment & Plan (08/26/2019 1:24 PM LOCKER PLANT ATTENDANT): Stable, check labs Mixed hyperlipidemia 12/30/2015 Assessment & Plan (05/07/2023 2:30 PM CDT): Diet controlled. Will continue to monitor lipid panel. Assessment & Plan (11/15/2021 10:29 AM LOCKER PLANT ATTENDANT): Diet controlled. Requested lab Assessment & Plan (10/12/2020 11:28 AM LOCKER PLANT ATTENDANT): Stable, patient is not on meds at this time Assessment & Plan (02/19/2020 3:31 PM CDT): Check labs Assessment & Plan (08/26/2019 1:23 PM LOCKER PLANT ATTENDANT): Check labs Vitamin D deficiency 12/30/2015 Assessment & Plan (05/07/2023 2:31 PM CDT): Continue vitamin-D supplement. Assessment & Plan (11/15/2021 10:30 AM LOCKER PLANT ATTENDANT): Stable continue vitamin Assessment & Plan (10/12/2020 11:29 AM LOCKER PLANT ATTENDANT): Stable continue vitamin Assessment & Plan (02/19/2020 3:31 PM CDT): Check labs Assessment & Plan (08/26/2019 1:25 PM LOCKER PLANT ATTENDANT): Continue vit d Resolved Problems Problem Noted Date Diagnosed Date Resolved Date Unspecified mood (affective) disorder ([facility]) 03/21/2020 11/15/2021 Assessment & Plan (10/12/2020 11:29 AM LOCKER PLANT ATTENDANT): Stable followed by Psychiatry Assessment & Plan [...] 2 Assessment & Plan (10/12/2020 11:28 AM LOCKER PLANT ATTENDANT): Stable continue meds Assessment & Plan (11/18/2019 4:05 PM LOCKER PLANT ATTENDANT): With patient's change in urinary symptoms I would like to hold the VESIcare and see how she does. UA in office today was negative Assessment & Plan (08/26/2019 1:24 PM LOCKER PLANT ATTENDANT): Stable, continue meds Mild neurocognitive disorder 12/20/2017 [...] 2019 Assessment & Plan (10/14/2019 1:03 PM LOCKER PLANT ATTENDANT): Referral to memory clinic at [facility]. Scores show mild decline. Assessment & Plan (08/26/2019 1:23 PM LOCKER PLANT ATTENDANT): Need to rtc for memory testing. 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 08/26/2019 Leucocytosis 03/26/2017 08/26/2019 MARTIN (dyspnea on exertion) 12/11/2016 History of IBS 09/03/2016 08/26/2019 History of radiofrequency ab lation procedure for cardiac arrhythmia 09/03/2016 08/26/2019 Vulvar dystrophy 09/03/2016 10/12/2020 Assessment & Plan (08/26/2019 1:25 PM LOCKER PLANT ATTENDANT): Stable History of rhabdomyolysis 08/14/2016 Atrial flutter (CMS/HCC) 02/14/201606/2022 Assessment & Plan (10/12/2020 11:26 AM LOCKER PLANT ATTENDANT): Stable Assessment & Plan (02/19/2020 3:30 PM CDT): Stable Assessment & Plan (08/26/2019 1:22 PM LOCKER PLANT ATTENDANT): Stable followed by cardiology Encounters Date Type Department Care Team Description 02/24/2025 8:30 AM CDT Office Visit [facility] Cardiology [address] [place] [address] Kassandra Shannon NP Atrial fibrillation, unspecified type (HCC) (Primary Dx); Mitral valve insufficiency, unspecified etiology; Hospital discharge follow-up 02/03/2025 Orders Only [facility] Cardiology [address] 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) (Primary Dx) 01/13/2025 Orders Only [facility] Scanning, Provider 01/12/2025 Documentation [facility] [address] Floor [address] [place] [address] Sherly Ivey, CLOUD SECURITY ARCHITECT 01/08/2025 Telephone [place] [id number] [facility] Floor [address] [place] [address] Harriett Sutherland, A 01/04/2025 2:18 PM CDT - 01/04/2025 11:59 PM CDT Hospital Encounter [facility] MRI [address] [place] [address] 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); Seizure disorder (HCC); Confusion after a seizure Discharge Disposition: Discharge to home or self care 01/04/2025 1:12 PM CDT - 01/04/2025 11:59 PM CDT Hospital Encounter [facility] Cardiac Testing [address] [place] [address] Seizure disorder (HCC); Confusion after a seizure Discharge Disposition: Discharge to home or self care 01/04/2025 Telephone [place] [address] [facility] [address] [place] [address] Vivi Patel 01/04/2025 Telephone [facility] Family Medicine [address] [address] Nan Blair PA from Last [...] on file Legal Sex Female 1:09 AM LOCKER PLANT ATTENDANT Gender Identity Female 10/05/2020 10:15 AM LOCKER PLANT ATTENDANT Sexual Orientation Straight 10/05/2020 10 :15 AM LOCKER PLANT ATTENDANT 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 Rhchm-kxyyadq-iumk-left middle cranial fossa arachnoid cyst or underlying [...] signed by Alex SALCEDO T: Report ID: [id number] Reading Location: [place] [address] Procedure Note Alex Ashton, DO - 01/05/2025 [...] diffuse cerebral and cerebellar parenchymal volume loss. Slelx-rhzlzzo-ioqs-left middle cranial fossa arachnoid cyst or underlyingmore [...] signed by Alex SALCEDO T: Report ID: [id number] Reading Location: [id number] Nan [facility]LEY [facility] MRI PROCEDURES Final Resul t * Dexa Axial Skeleton Bone Density 1 or 2 Site (05/07/2022 12:52 PM CDT) Anatomical Region Laterality Modality Body N/A Mammography 05/07/2022 1:53 PM CDT Narrative 05/07/2022 1:54 PM CDT EXAM DESCRIPTION: DEXA AXIAL SKELETON BONE DENSITY 1 OR MORE SITES REASON FOR STUDY: 71 y/o year old F with given history of screening. Nurses Supervisor/Model: Urbful A (S/N [id number]) CLINICAL INFORMATION: Current height: 64 inches Maximum [...] Lanette Gloria M.D. TB: TB Report ID: [id number] Reading Location: [id number] Procedure Note MoonLanette MD - 05/07/2022 EXAM DESCRIPTION: DEXA AXIAL SKELETON BONE DENSITY 1 OR MORE SITES REASON FOR STUDY: 71 y/o year old F with given history ofscreening. Nurses Supervisor/Model: Urbful A (S/N [id number]) CLINICAL INFORMATION: Current height: 64 inches Maximum [...] Lanette Gloria M.D. TB: TB Report ID: [id number] Reading Location: [id number] Nan RILEY IMDebbie DXA PROCEDURES Final Resul t * COLONOSCOPY (12/16/2018) Pathologist [facility] Colonoscopy Abnormal Historical Provider HEALTH MAINTENANCE Final Result * MAMMOGRAPHY (02/04/2018) Pathologist [facility] Mammogram Normal Historical Provider HEALTH MAINTENANCE Final Result * Hepatitis C antibody (04/24/2017 11:05 AM CDT) Hep C Ab NONREACT NONREACTIVE 04/24/2017 8:[address] [facility] HISTORICAL RESULTS Comment: Siemens Post-A-VoxaurXP using NIKUNJ (chemiluminescent immunoassay) technology. NONREACTIVE: Antibodies [...] MICROBIOLOGY - GENERAL ORD ERABLES Final Result [facility] HISTORICAL RESULTS from Last 3 Months or Most Recently Relevant to Health Maintenance Insurance MEDICARE [facility] MEDICARE ADVANTAGE [facility] MEDICARE ADVANTAGE [facility] MEDICARE ADVANTAGE [place] [id number] Advance Directives For more information, please contact: [phone] Documents on File Type Date Recorded Patient Catering Service Manager Expl anation ADVANCE DIRECTIVE 12/07/2020 3:24 PM DNR ADVANCE DIRECTIVE 09/25/2013 12:00 AM [facility] FLUID TENDER FINANCIAL/MEDICAL Care Teams Gameroom Technician Relationship Specialty Start Date End Date Nan Blair PA [address] [place] [address] PCP - General Family Medicine 07/03/22 Jorge Jefferson MD [address] [place] [address] Consulting Physician Family Medicine 03/09/19 Lizzie Collins MD [address] [address] Wet Process [place] Cardiology 05/18/19 Freeman Chung MD [address] [place] [address] Referring Physician Geriatric Psychiatry 06/09/20 Maribel Andrade MD [address] [address] Consulting Physician Anesthesiology 12/31/20 [place] [address] [place] [address] Psychiatry 01/11/22
--- OUTSIDE RECORDS SUMMARY | 2025-02-25 20:29 | XMS_ITS | Encounter Summary ---
Author Organization [facility] Facility Care Team Providers Care Assistant Finance Manager Name Role Phone Nan Blair Primary Care Provider [phone] Jorge Jefferson MD Primary Care Provid er Nan Blair Unavailable [phone] Nan Blair Primary Care Provider [phone] Jorge Jefferson MD Unavailable + [phone] Lizzie Collins MD Unavailable +[phone] Freeman Chung MD Unavailable [phone] Maribel Andrade MD Unavailable [phone] Guy Rosen MD Unavailable Miscellaneous, Not In File Primary Care Provider Unavailable Nan Blair Primary Care Provider [phone] Encounter Details Date Type Department Care Team (Latest Contact Info) Description 11/01/2017 Orders Only [facility] CLINCONV ProviderJulieta MD [address] [place] [address] Social History Tobacco Use Types Packs/Day Years Used Date Smoking Tobacco: Never Assessed Comments Unknown Sex and Gender Information Value Date Recorded Sex Assigned at Not on file Legal Sex Female 1:09 AM TECHNOLOGY OFFICER Gender Identity Female 10/05/2020 10:15 AM TECHNOLOGY OFFICER Sexual Orientation Straight 10/05/2020 10 :15 AM TECHNOLOGY OFFICER documented as of this encounter Plan of Treatment Not on file documented as of this encounter Procedures Procedure Name Priority Date/Time Associated Diagnosis Comments CARDIOLOGY REPORT 11/01/2017 12: 00 AM TECHNOLOGY OFFICER documented in this encounter Results * CARDIOLOGY REPORT (11/01/2017 12:00 AM TECHNOLOGY OFFICER) Anatomical Region Laterality Modality Other Narrative 11/01/2017 12:00 AM TECHNOLOGY OFFICER Ordered by an unspecified provider. us Historical Provider [facility] Final Result documented in this encounter Visit Diagnoses Not on filedocumented in this encounter Care Teams Assistant Finance Manager Relationship Specialty Start Date End Date Nan Blair PA [address] [place] [address] PCP - General Physician Traffic Enumerator 04/28/18 02/01/19 Jorge Jefferson MD [address] [place] [address] PCP - General Family Medicine 02/02/19 03/08/19 Nan Blair PA [address] [place] [address] PCP - General Physician Traffic Enumerator 03/09/19 05/03/22 Miscellaneous, Not In File PCP - General 05/04/22 07/02/22 Nan Blair PA [address] [place] [address] PCP - General Family Medicine 07/03/22 Nan Blair PA [address] [place] [address] Physician Traffic Enumerator Physician Traffic Enumerator 02/02/19 9 Jorge Jefferson MD [address] [place] [address] Consulting Physician Family Medicine 03/09/19 Lizzie Collins MD [address] [address] Consumer Analyst Cardiology 05/18/19 Freeman Chung MD [address] [place] [address] Referring Physician Geriatric Psychiatry 06/09/20 Maribel Andrade MD [facility] [address] [address] Consulting Physician Anesthesiology 12/31/20 Guy Rosen MD [address] [place] [address] Psychiatry 01/11/22 documented as of this encounter
--- OUTSIDE RECORDS SUMMARY | 2025-02-25 20:29 | XMS_ITS | Encounter Summary ---
Author Organization [facility] Address [address] [facility] [address] [place] [address] Phone Care Team Providers Care Garden Worker Name Role Phone Nan Blair Primary Care Provider [phone] Jorge Jefferson MD Primary Care Provid er Nan Blair Unavailable [phone] Nan Blair Primary Care Provider [phone] Jorge Jefferson MD Unavailable + [phone] Lizzie Collins MD Unavailable +[phone] Freeman Chung MD Unavailable [phone] Maribel Andrade MD Unavailable [phone] Guy Rosen MD Unavailable Miscellaneous, Not In File Primary Care Provider Unavailable Nan Blair Primary Care Provider [phone] Encounter Details Date Type Department Care Team (Latest Contact Info) Description 11/01/2017 Orders Only [facility] Scanning, Provider Social History Tobacco Use Types Packs/Day Years Used Date Smoking Tobacco: Never Assessed Comments Unknown Sex and Gender Information Value Date Recorded Sex Assigned at Not on file Legal Sex Female 1:09 AM CPHT Gender Identity Female 10/05/2020 10:15 AM CPHT Sexual Orientation Straight 10/05/2020 10 :15 AM CPHT documented as of this encounter Plan of Treatment Not on file documented as of this encounter Procedures Procedure Name Priority Date/Time Associated Diagnosis Comments SCAN - RADIOLOGY/IMAGING 11/01/2017 documented in this encounter Results * SCAN - RADIOLOGY/IMAGING (11/01/2017) Anatomical Region Laterality Modality Other us Provider Scanning Final Result documented in this encounter Visit Diagnoses Not on filedocumented in this encounter Care Teams Garden Worker Relationship Specialty Start Date End Date Nan Blair PA [address] [place] [address] PCP - General Physician Executive Administrator 04/28/18 02/01/19 Jorge Jefferson MD [address] [place] [address] PCP - General Family Medicine 02/02/19 03/08/19 Nan Blair PA [address] [place] [address] PCP - General Physician Executive Administrator 03/09/19 05/03/22 Miscellaneous, Not In File PCP - General 05/04/22 07/02/22 Nan Blair PA [address] [place] [address] PCP - General Family Medicine 07/03/22 Nan Blair PA [address] [place] [address] Physician Executive Administrator Physician Executive Administrator 02/02/19 9 Jorge Jefferson MD [address] [place] [address] Consulting Physician Family Medicine 03/09/19 Lizzie Collins MD [address] [address] Sales Market Leader Cardiology 05/18/19 Freeman Chung MD [address] [place] [address] Referring Physician Geriatric Psychiatry 06/09/20 Maribel Andrade MD [address] [facility] [address] [address] Consulting Physician Anesthesiology 12/31/20 Guy Rosen MD [address] [place] [address] Psychiatry 01/11/22 documented as of this encounter
--- OUTSIDE RECORDS SUMMARY | 2025-02-25 20:29 | XMS_ITS | Encounter Summary ---
Author Organization [facility] Healthcare Address [address] [place] [address] Care Team Providers Care Spot Man Name Role Phone Jorge Jefferson MD Unavailable + [phone] Lizzie Collins MD Unavailable [phone] Freeman Chung MD Unavailable [phone] Maribel Andrade MD Unavailable [phone] Guy Rosen MD Unavailable Nan Blair Primary Care Provider [phone] Reason for Visit * Reason Comments Hospital Follow Up Encounter Details Date Type Department Care Team (Late st Contact Info) Description 02/24/2025 8:30 AM CDT Office Visit [facility] Medical Group Cardiology [address] [place] [address] Kassandra Shannon, JESSE [address] [place] [address] Atrial fibrillation, unspecified type (HCC) [...] on file Legal Sex Female 1:09 AM 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 female who comes to the office for a hospital follow up for atrial fibrillation History of Present Illness: Kriss Worley is a 74 y.o. female with Alzheimer's dementia. She was hospitalized at [facility] on01/28/25 because she was feeling spacey. Cardiology was consulted for atrial fibrillation. She hasa known history of atrial fibrillation being managed with rate control and anticoagulation. Echocardiogram was performed during her hospitalization and showed normal LV function, EF 60- 65% and moderate MR. 02/24/2025 Hospital follow-up with [facility] - Kriss Kirby Worley comes to the [...] out and sick to stomach confusion, n/v [place] Other (See comments) and Unknown Severe reaction-Kidney [...] complaints today. Kassandra ERNST- Nurse Practitioner with [facility] Cardiology This note is dictated and transcribed using SocialBrow[employer] Direct Software. Airline Station Agent variancesmay occur. Despite proofreading, typographical errors may [...] 02/22/2025 added in this encounter Care Teams Spot Man Relationship Specialty Start Date End Date Nan Blair PA [address] [place] [address] PCP - General Family Medicine 07/03/22 Jorge Jefferson MD [address] [place] [address] Consulting Physician Family Medicine 03/09/19 Lizzie Collins MD [address] [facility] [address] [address] Gut Puller Cardiology 05/18/19 Freeman Chung MD [address] [place] [address] Referring Physician Geriatric Psychiatry 06/09/20 Maribel Andrade MD [address] [facility] [address] [place] [address] Consulting Physician Anesthesiology 12/31/20 Guy Rosen MD [address] [place] [address] Psychiatry 01/11/22 documented as of this encounter
--- OUTSIDE RECORDS SUMMARY | 2025-02-25 20:29 | XMS_ITS | Encounter Summary ---
Author Organization [facility] Facility Care Team Providers Care International Marketing Manager Name Role Phone Nan Blair Primary Care Provider [phone] Jorge Jefferson MD Primary Care Provid er Nan Blair Unavailable [phone] Nan Blair Primary Care Provider [phone] Jorge Jefferson MD Unavailable + [phone] Lizzie Collins MD Unavailable [phone] Freeman Chung MD Unavailable [phone] Maribel Andrade MD Unavailable [phone] Guy Rosen MD Unavailable Miscellaneous, Not In File Primary Care Provider Unavailable Nan Blair Primary Care Provider [phone] Encounter Details Date Type Department Care Team (Latest Contact Info) Description 08/15/2017 Orders Only [facility] CLINCONV ProviderJulieta MD [address] [place] [address] Social History Tobacco Use Types Packs/Day Years Used Date Smoking Tobacco: Never Assessed Comments Unknown Sex and Gender Information Value Date Recorded Sex Assigned at Not on file Legal Sex Female 1:09 AM HEARSE DRIVER Gender Identity Female 10/05/2020 10:15 AM HEARSE DRIVER Sexual Orientation Straight 10/05/2020 10 :15 AM HEARSE DRIVER documented as of this encounter Plan of Treatment Not on file documented as of this encounter Procedures Procedure Name Priority Date/Time Associated Diagnosis Comments CARDIOLOGY REPORT 08/15/2017 12: 00 AM HEARSE DRIVER documented in this encounter Results * CARDIOLOGY REPORT (08/15/2017 12:00 AM HEARSE DRIVER) Anatomical Region Laterality Modality Other Narrative 08/15/2017 12:00 AM HEARSE DRIVER Ordered by an unspecified provider. us Historical Provider [facility] Final Result documented in this encounter Visit Diagnoses Not on filedocumented in this encounter Care Teams International Marketing Manager Relationship Specialty Start Date End Date Nan Blair PA [address] [place] [address] PCP - General Physician Clean Energy Policy Analyst 04/28/18 02/01/19 Jorge Jefferson MD [address] [place] [address] PCP - General Family Medicine 02/02/19 03/08/19 Nan Blair PA [address] [place] [address] PCP - General Physician Clean Energy Policy Analyst 03/09/19 05/03/22 Miscellaneous, Not In File PCP - General 05/04/22 07/02/22 Nan Blair PA [address] [place] [address] PCP - General Family Medicine 07/03/22 Nan Blair PA [address] [place] [address] Physician Clean Energy Policy Analyst Physician Clean Energy Policy Analyst 02/02/19 9 Jorge Jefferson MD [address] [place] [address] Consulting Physician Family Medicine 03/09/19 Lizzie Collins MD [address] [address] Repairer Handtools Cardiology 05/18/19 Freeman Chung MD [address] [place] [address] Referring Physician Geriatric Psychiatry 06/09/20 Maribel Andrade MD [facility] [address] [address] Consulting Physician Anesthesiology 12/31/20 Guy Rosen MD [address] [place] [address] Psychiatry 01/11/22 documented as of this encounter
--- OUTSIDE RECORDS SUMMARY | 2025-02-25 20:30 | XMS_ITS | Encounter Summary ---
Author Organization [facility] Address [address] [facility] [address] [place] [address] Phone Care Team Providers Care Management Associate Name Role Phone Nan Blair Primary Care Provider [phone] Jorge Jefferson MD Unavailable + [phone] Lizzie Collins MD Unavailable +[phone] Freeman Chung MD Unavailable [phone] Maribel Andrade MD Unavailable [phone] Guy Rosen MD Unavailable Miscellaneous, Not In File Primary Care Provider Unavailable Nan Blair Primary Care Provider [phone] Encounter Details Date Type Department Care Team [...] on file Legal Sex Female 1:09 AM VETERINARY DENTIST Gender Identity Female 10/05/2020 10:15 AM VETERINARY DENTIST Sexual Orientation Straight 10/05/2020 10 :15 AM VETERINARY DENTIST Occupation Industry Job Start Date Job End [...] on filedocumented in this encounter Care Teams Management Associate Relationship Specialty Start Date End Date Nan Blair PA [address] [place] [address] PCP - General Physician Sponsorship Coordinator 03/09/19 05/03/22 Miscellaneous, Not In File PCP - General 05/04/22 07/02/22 Nan Blair PA [address] [place] [address] PCP - General Family Medicine 07/03/22 Jorge Jefferson MD [address] [place] [address] Consulting Physician Family Medicine 03/09/19 Lizzie Collins MD [address] [facility] [place] [address] Auditor/Quality Cardiology 05/18/19 Freeman Chung MD [address] [place] [address] Referring Physician Geriatric Psychiatry 06/09/20 Maribel Andrade MD [address] [facility] [address] [place] [address] Consulting Physician Anesthesiology 12/31/20 Guy Rosen MD [address] [place] [address] Psychiatry 01/11/22 documented as of this encounter
--- OUTSIDE RECORDS SUMMARY | 2025-02-25 20:30 | XMS_ITS | Clinical Summary ---
Author Organization [facility] Address [address] [place] [address] Care Team Providers Care Data Developer Name Role Phone Nan Blair Primary Care Provider [phone] Source Comments [facility],non-owned Affiliates and Associated Physician Practices is amultiple site organization consisting of ambulatory clinics and hospital sitesin [place], [place], [place] and [place]. This disclosure is being madepursuant to the Care Everywhere program and may not contain all information available regarding this patient. Last updated 18.[facility] Allergies Active Allergy Reactions Criticality Noted Date Comments Codeine Dizziness 03/19/2020 [place] Other Low 02/02/2019 Severe reaction-Kidney failure Severe [...] on file Legal Sex Female 6:28 AM BOOK REVIEWER Gender Identity Not on file Sexual Orientation [...] patient's age to complete this topic Insurance [facility] MANAGED MEDICARE ADV Member Subscriber Plan / Payer (Ef fective 2024-Present) Name:Kriss Worley Relation to Subscriber:Self Name:Kriss Worley Payer ID:[id number] (NAIC) Type:Medicare-Managed Care Address: [place] [id number] [place] [id number] Advance Directives * Full Code (Latest Code Status on File) Date Activated Date Inactivated Comments 03/21/2020 5:53 PM 03/25/2020 5:03 PM * Full Code Date Activated Date Inactivated Comments 03/19/2020 6:05 PM 03/21/2020 5:36 PM Care Teams Data Developer Relationship Specialty Start Date End Date Nan Blair PA PCP - General 05/08/20
--- OUTSIDE RECORDS SUMMARY | 2025-02-25 20:30 | XMS_ITS | Encounter Summary ---
Author Organization [facility] Address [address] [facility] [address] [place] [address] Phone Care Team Providers Care Radiology Assistant Name Role Phone Nan Blair Primary Care Provider [phone] Jorge Jefferson MD Unavailable + [phone] Lizzie Collins MD Unavailable [phone] Freeman Chung MD Unavailable [phone] Maribel Andrade MD Unavailable [phone] Guy Rosen MD Unavailable Miscellaneous, Not In File Primary Care Provider Unavailable Nan Blair Primary Care Provider [phone] Encounter Details Date Type Department Care Team [...] on file Legal Sex Female 1:09 AM ENGINE BUILDUP MECHANIC Gender Identity Female 10/05/2020 10:15 AM ENGINE BUILDUP MECHANIC Sexual Orientation Straight 10/05/2020 10 :15 AM ENGINE BUILDUP MECHANIC Occupation Industry Job Start Date Job [...] on filedocumented in this encounter Care Teams Radiology Assistant Relationship Specialty Start Date End Date Nan Blair PA [address] [place] [address] PCP - General Physician Parts Lister 03/09/19 05/03/22 Miscellaneous, Not In File PCP - General 05/04/22 07/02/22 Nan Blair PA [address] [place] [address] PCP - General Family Medicine 07/03/22 Jorge Jefferson MD [address] [place] [address] Consulting Physician Family Medicine 03/09/19 Lizzie Collins MD [address] [facility] [place] [address] Communication Center Operator Cardiology 05/18/19 Freeman Chung MD [address] [place] [address] Referring Physician Geriatric Psychiatry 06/09/20 Maribel Andrade MD [address] [address] Consulting Physician Anesthesiology 12/31/20 Guy Rosen MD [address] [place] [address] Psychiatry 01/11/22 documented as of this encounter
--- OUTSIDE RECORDS SUMMARY | 2025-02-25 20:30 | XMS_ITS | Referral Summary ---
Author Organization [facility] Address [address] [place] [address] Care Team Providers Care Floor Covering Printer Assistant Name Role Phone Jorge Jefferson MD Unavailable + [phone] Lizzie Collins MD Unavailable [phone] Freeman Chung MD Unavailable Maribel Andrade MD Unavailable [phone] Guy Rosen MD Unavailable Nan Blair Primary Care Provider [phone] Encounters Date Type Department Care Team Description 02/24/2025 8:30 AM CDT Office Visit [facility] Cardiology [address] [facility] [address] [place] [phone] Kassandra Shannon NP Atrial fibrillation, unspecified type (HCC) (Primary Dx); Mitral valve insufficiency, unspecified etiology; Hospital discharge follow-up 02/03/2025 Orders Only [facility] Cardiology [address] [place] [phone] Kassandra Shannon NP 01/27/2025 1:45 PM CDT Office Visit [address] 6th Floor [address] [place] [address] Betsy Ryan NP 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) (Primary Dx) 01/13/2025 Orders Only [facility] Sc[facility], Provider 01/12/2025 Documentation [facility] [address] [facility] [address] Floor [address] [place] [address] Sherly Ivey, ARMHOLE PRESSER 01/08/2025 Telephone [facility] [address] [facility] [address] [place] [address] Harriett Sutherland, RMA 01/04/2025 Telephone [facility] [address] [facility] [address] [place] [address] Vivi Patel 01/04/2025 Telephone [facility] Family Medicine [address] [address] Nan Blair PA 01/04/2025 2:18 PM CDT - 01/04/2025 11:59 PM CDT Hospital Encounter [facility] MRI [address] [place] [address] 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); Seizure disorder (HCC); Confusion after a seizure Discharge Disposition: Discharge to home or self care 01/04/2025 1:12 PM CDT - 01/04/2025 11:59 PM CDT Hospital Encounter [facility] Cardiac Testing [address] [place] [address] Seizure disorder (HCC); Confusion after a seizure Discharge Disposition: Discharge to home or self care from Last 3 Months Allergies Active Allergy Reactions Criticality Noted Date Comments Amoxicillin Unknown 02/02/2019 Codeine Other (See comments),Dizziness,Naus ea And Vomiting,Unknown Low 03/16/2016 Spaced out and sick to stomach Spaced out and sick to stomach confusion, n/v White Other (See comments),Unknown Low 02/02/2019 Severe reaction-Kidney [...] 11/27/2024 Assessment & Plan (11/27/2024 1:17 PM BRANCH MAKER): Patient had a seizure 1 year ago. [...] 10/12/2020 Assessment & Plan (11/27/2024 10:55 AM BRANCH MAKER): Progressing. Patient will continue Namenda and Aricept. [...] office; ok to continue Doing well at [facility] Assessment & Plan (11/15/2021 10:29 AM BRANCH MAKER): Worsening. Patient will continue current meds. [...] is not addictive. Agree with move to [facility]. Continue to work with Dr. Andrade, counselor and cognitive stimulation therapist. Assessment & Plan (10/12/2020 11:27 AM BRANCH MAKER): Followed by neurology, unchanged Class 1 obesity due to exces s calories with serious comorbidity and body mass index (BMI) of 31.0 to 31.9 in adult 08/26/2019 Assessment & Plan (05/07/2023 2:29 PM CDT): Reviewed BMI Focus on healthy diet options Work on healthy changes Assessment & Plan (11/15/2021 10:28 AM BRANCH MAKER): Uncontrolled. Goal of BMI is less [...] month Assessment & Plan (10/12/2020 11:26 AM BRANCH MAKER): Educated patient on healthy diet/exercise plan. [...] sugar. Assessment & Plan (08/26/2019 1:23 PM BRANCH MAKER): Educated patient on healthy diet/exercise plan. [...] 05/25/2020 Assessment & Plan (11/15/2021 10:28 AM BRANCH MAKER): PMH/MHA: 11/15/2021 Last pap:2012 Last mammogram: 02/04/2018 (requested report) Last dexa:02/04/2018, ordered Last colonoscopy/cologuard:08/2015, 12/16/2018 repeat 2023 Last Hep C:04/2017 Last tdap:04/08/2013 Last Prevnar/pneumovax: 05/18/2015 (13) 07/18/2011 (23) Last Shingrix: (zoster 10/07/2012) 10/16/2018, 07/03/2018 Last eye exam: 05/25/2020 Assessment & Plan (10/12/2020 11:27 AM BRANCH MAKER): PMH/MHA: 10/12/2020 Last pap:2013 Last mammogram: 02/04/2018 Last dexa:02/04/2018 Last colonoscopy/cologuard:08/2015, 12/16/2018 repeat 2023 Last Hep C:04/2017 Last tdap:04/08/2013 Last Prevnar/pneumovax: 05/18/2015 (13) 07/18/2011 (23) Last Shingrix: (zoster 10/07/2012) 10/16/2018, 07/03/2018 Last eye exam: 05/25/2020 Assessment & Plan (08/26/2019 1:10 PM BRANCH MAKER): PMH/MHA: 08/26/2019 Last pap:2012 Last mammogram: 02/04/2018 Last dexa:02/04/2018 Last colonoscopy/cologuard:08/2015, 12/16/2018 repeat 2023 Last Hep C:04/2017 Last tdap:04/08/2013 Last Prevnar/pneumovax: 05/18/2015 (13) 07/18/2011 (23) Last Shingrix: (zoster 10/07/2012) 10/16/2018, 07/03/2018 Last eye exam: due Recurrent major depressive disorder, in partial remission 10/13/2018 Assessment & Plan (05/07/2023 3:58 PM CDT): Chronic. Continue follow-up psychiatry. Assessment & Plan (11/15/2021 10:29 AM BRANCH MAKER): Stable continue meds Assessment & Plan (10/12/2020 11:28 AM BRANCH MAKER): Stable, followed by Psychiatry Assessment & Plan (05/23/2020 3:09 PM CDT): Strongly recommend consistent care and follow-up with [facility] Psychiatry to evaluate and treat mood diagnoses [...] psychiatry Assessment & Plan (10/16/2019 1:12 PM BRANCH MAKER): Uncontrolled. Assessment & Plan (10/14/2019 1:02 PM BRANCH MAKER): Uncontrolled. I really feel like pt is very lonely and she needs daily interaction with other people. Encouraged pt to consider a correction center to open her world to new hobbies, interactions with other. Need referral to psychiatrist. Need to see counselor within the next 2 wks. Memory issues may be related to depression. Assessment & Plan (08/26/2019 1:24 PM BRANCH MAKER): Referral to psychiatrist Generalized anxiety disorder 03/12/2018 Assessment & Plan (05/07/2023 3:57 PM CDT): Chronic. Continue follow-up with psychiatrist. Assessment & Plan (11/15/2021 10:28 AM BRANCH MAKER): Stable, continue current meds Assessment & Plan (10/12/2020 11:26 AM BRANCH MAKER): Stable followed by Psychiatry Assessment & Plan (02/19/2020 3:30 PM CDT): Stable Assessment & Plan (11/18/2019 4:05 PM BRANCH MAKER): Patient will hold lorazepam at this time. She is not having any anxiety Assessment & Plan (10/14/2019 1:03 PM BRANCH MAKER): Referral psychiatrist Assessment & Plan (08/26/2019 1:22 PM BRANCH MAKER): Stable Bipolar 1 disorder, depressed, moderate 11/06/19 18 Assessment & Plan (11/27/2024 1:17 PM BRANCH MAKER): Chronic, stable, patient will continue her medications for Alzheimer's to include Aricept and Namenda. No additional meds needed at this time Assessment & Plan (05/07/2023 3:57 PM CDT): Chronic. Continue follow-up with psychiatrist. Assessment & Plan (11/15/2021 10:27 AM BRANCH MAKER): Stable Assessment & Plan (10/12/2020 11:26 AM BRANCH MAKER): Stable followed by Psychiatry Assessment & Plan (05/02/2020 2:11 PM CDT): Follow with psychiatry Assessment & Plan (02/19/2020 3:30 PM CDT): Patient has not made appointment with a psychiatrist. Patient reports she is feeling stable on her current meds. I encouraged patient to make a Psychiatry appointment Assessment & Plan (11/18/2019 4:05 PM BRANCH MAKER): Uncontrolled. Increase Wellbutrin to 300 mg. Patient needs to see a psychiatrist. Patient given a list of psychiatrist in the area. I spoke with her lela not too long ago about patient needing to see the psychiatrist and also patient needing to consider moving into some type of correction center to have interactions with other people Assessment & Plan (10/16/2019 3:21 PM BRANCH MAKER): Uncontrolled. Pt does not have a [...] into inpatient psychiatric care at [facility] in [place]. Patient's son will be contacting his brother and they will be deciding what to do in the next day or so. Patient will be monitor closely over the weekend by Papo. Assessment & Plan (10/14/2019 1:03 PM BRANCH MAKER): Uncontrolled, referral to psychiatrist. Assessment & Plan (08/26/2019 1:22 PM BRANCH MAKER): Depressed, need to see psychiatry for medication adjustment. Essential (primary) hypertension 08/15/2017 Assessment & Plan (11/27/2024 2:03 PM BRANCH MAKER): Episodes of hypotension. We are going to hold amlodipine. We are going to have Dayna Beatty [facility] living check her blood pressure daily and report numbers in 1 week. Assessment & Plan (05/07/2023 3:57 PM CDT): Chronic and controlled without medication. Continue to monitor. Assessment & Plan (11/15/2021 10:28 AM BRANCH MAKER): Stable, continue current meds Assessment & Plan (10/12/2020 11:26 AM BRANCH MAKER): Stable continue meds Assessment & Plan (02/19/2020 3:30 PM CDT): Stable Assessment & Plan (11/18/2019 4:05 PM BRANCH MAKER): Stable continue meds Assessment & Plan (08/26/2019 1:22 PM BRANCH MAKER): Stable, continue current meds Primary osteoarthritis of right knee 08/15/2017 Assessment & Plan (05/07/2023 2:31 PM CDT): Continue Tylenol as needed for pain. Assessment & Plan (11/15/2021 10:29 AM BRANCH MAKER): Patient takes Tylenol for pain. Assessment & Plan (10/12/2020 11:28 AM BRANCH MAKER): Uncontrolled. Patient will hopefully get to start physical therapy soon once her insurance has been reinstated. Patient may also need to see Ortho in the near future Assessment & Plan (08/26/2019 1:24 PM BRANCH MAKER): stable Unsteady gait 11/09/2016 Assessment & Plan (05/07/2023 3:58 PM CDT): Completed physical therapy. No recent falls. Assessment & Plan (11/15/2021 10:29 AM BRANCH MAKER): Recommend physical therapy. Recommend using a cane Assessment & Plan (10/12/2020 11:29 AM BRANCH MAKER): Uncontrolled. Patient is doing okay with [...] daily. Assessment & Plan (08/26/2019 1:24 PM BRANCH MAKER): Use cane at all times, Recommend PT. Pt will consider that. Assessment & Plan (02/02/2019 11:25 AM CDT): Order physical therapy Glucose intolerance (impaired glucose tolerance) 09/03/2016 Assessment & Plan (05/07/2023 3:57 PM CDT): Diet controlled. Labs ordered today. Assessment & Plan (11/15/2021 10:28 AM BRANCH MAKER): Diet controlled, requested lab results Assessment & Plan (10/12/2020 11:27 AM BRANCH MAKER): Stable, diet controlled Assessment & Plan (02/19/2020 3:30 PM CDT): Diet controlled check labs Assessment & Plan (08/26/2019 1:23 PM BRANCH MAKER): Diet controlled, due for labs Obstructive sleep apnea 08/14/2016 Assessment & Plan (05/07/2023 2:30 PM CDT): Not on CPAP. Assessment & Plan (11/15/2021 10:29 AM BRANCH MAKER): Stable Assessment & Plan (10/12/2020 11:28 AM BRANCH MAKER): Stable, no CPAP machine at this time Assessment & Plan (08/26/2019 1:13 PM BRANCH MAKER): No cpap machine Other allergic rhinitis 08/14/2016 Assessment & Plan (05/07/2023 2:30 PM CDT): Continue current management. Assessment & Plan (11/15/2021 10:29 AM BRANCH MAKER): Stable Assessment & Plan (10/12/2020 11:28 AM BRANCH MAKER): Stable p.r.n. meds Assessment & Plan (08/26/2019 1:23 PM BRANCH MAKER): stable Atrial flutter 02/14/2016 Overview (02/08/2025): Last Assessment & Plan: Stable Last Assessment & Plan: Stable Other specified hypothyroidism 12/30/2015 Assessment & Plan (05/07/2023 2:30 PM CDT): Continue current dose of levothyroxine. Due for TSH. Assessment & Plan (11/15/2021 10:29 AM BRANCH MAKER): Stable, continue meds, requested lab Assessment & Plan (10/12/2020 11:28 AM BRANCH MAKER): Stable continue meds Assessment & Plan (02/19/2020 3:31 PM CDT): Check labs Assessment & Plan (08/26/2019 1:24 PM BRANCH MAKER): Stable, check labs Mixed hyperlipidemia 12/30/2015 Assessment & Plan (05/07/2023 2:30 PM CDT): Diet controlled. Will continue to monitor lipid panel. Assessment & Plan (11/15/2021 10:29 AM BRANCH MAKER): Diet controlled. Requested lab Assessment & Plan (10/12/2020 11:28 AM BRANCH MAKER): Stable, patient is not on meds at this time Assessment & Plan (02/19/2020 3:31 PM CDT): Check labs Assessment & Plan (08/26/2019 1:23 PM BRANCH MAKER): Check labs Vitamin D deficiency 12/30/2015 Assessment & Plan (05/07/2023 2:31 PM CDT): Continue vitamin-D supplement. Assessment & Plan (11/15/2021 10:30 AM BRANCH MAKER): Stable continue vitamin Assessment & Plan (10/12/2020 11:29 AM BRANCH MAKER): Stable continue vitamin Assessment & Plan (02/19/2020 3:31 PM CDT): Check labs Assessment & Plan (08/26/2019 1:25 PM BRANCH MAKER): Continue vit d Resolved Problems Problem Noted Date Diagnosed Date Resolved Date Unspecified mood (affective) disorder (CMS/[facility]) 03/21/2020 11/15/2021 Assessment & Plan (10/12/2020 11:29 AM BRANCH MAKER): Stable followed by Psychiatry Assessment & [...] 2 Assessment & Plan (10/12/2020 11:28 AM BRANCH MAKER): Stable continue meds Assessment & Plan (11/18/2019 4:05 PM BRANCH MAKER): With patient's change in urinary symptoms I would like to hold the VESIcare and see how she does. UA in office today was negative Assessment & Plan (08/26/2019 1:24 PM BRANCH MAKER): Stable, continue meds Mild neurocognitive disorder [...] 2019 Assessment & Plan (10/14/2019 1:03 PM BRANCH MAKER): Referral to memory clinic at [facility]. Scores show mild decline. Assessment & Plan (08/26/2019 1:23 PM BRANCH MAKER): Need to rtc for memory testing. 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 08/26/2019 Leucocytosis 03/26/2017 08/26/2019 MARTIN (dyspnea on exertion) 12/11/2016 History of IBS 09/03/2016 08/26/2019 History of radiofrequency ab lation procedure for cardiac arrhythmia 09/03/2016 08/26/2019 Vulvar dystrophy 09/03/2016 10/12/2020 Assessment & Plan (08/26/2019 1:25 PM BRANCH MAKER): Stable History of rhabdomyolysis 08/14/2016 Atrial flutter (CMS/HCC) 02/14/201606/2022 Assessment & Plan (10/12/2020 11:26 AM BRANCH MAKER): Stable Assessment & Plan (02/19/2020 3:30 PM CDT): Stable Assessment & Plan (08/26/2019 1:22 PM BRANCH MAKER): Stable followed by cardiology Immunizations Immunization Administration [...] on file Legal Sex Female 1:09 AM BRANCH MAKER Gender Identity Female 10/05/2020 10:15 AM BRANCH MAKER Sexual Orientation Straight 10/05/2020 10 :15 AM BRANCH MAKER 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 Oksjs-hftwuxx-gsrx-left middle cranial fossa arachnoid cyst or underlying [...] signed by Alex SALCEDO T: Report ID: [id number] Reading Location: [id number] Procedure Note Alex Ashton, DO - 01/05/2025 EXAM DESCRIPTION: MRI BRAIN WO CONTRAST REASON FOR STUDY: Mental status change, unknown cause, possible seizureand confustion Hx of Seizures and Alzheimer's. No surgery TECHNIQUE: Multiplanar imaging includes non-contrasted T1, T2, FLAIR, and diffusion with ADC map sequences. Additional sequence(s) sensitive Therma-Wave. Images stored on PACS. COMPARISON: CT head without contrast dated 06/24/2020. MRI brain froman outside institution dated 11/01/2017. CT head from an outside institution dated 10/29/2017. FINDINGS: There is no diffusion restriction to suggest acute/recent infarction. The GRE sequence is severely limited by motion related artifact and cannot adequately evaluate for blood degradation products. There is diffuse cerebral and cerebellar parenchymal volume loss. Kqnme-ctwjmbh-kinu-left middle cranial fossa arachnoid cyst or underlyingmore [...] Alex Ashton D.O. AP T: Report ID: [id number] Reading Location: [id number] [facility] MRI PROCEDURES Final Resul t * Dexa Axial Skeleton Bone Density 1 or 2 Site (05/07/2022 12:52 PM CDT) Anatomical Region Laterality Modality Body N/A Mammography 05/07/2022 1:53 PM CDT Narrative 05/07/2022 1:54 PM CDT EXAM DESCRIPTION: DEXA AXIAL SKELETON BONE DENSITY 1 OR MORE SITES REASON FOR STUDY: 71 y/o year old F with given history of screening. 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 TB: TB Report ID: [id number] Reading Location: [id number] Procedure Note MoonLanette MD - 05/07/2022 EXAM DESCRIPTION: DEXA AXIAL SKELETON BONE DENSITY 1 OR MORE SITES REASON FOR STUDY: 71 y/o year old F with given history ofscreening. Computer Numerical Control Programmer/Model: [employer] A (S/N [id number]) CLINICAL INFORMATION: Current height: 64 inches Maximum [...] Lanette Gloria M.D. TB: TB Report ID: [id number] Reading Location: [id number] Nan [facility] DXA PROCEDURES Final Resul t * COLONOSCOPY (12/16/2018) [facility] Signature Colonoscopy Abnormal Historical Provider HEALTH MAINTENANCE Final Result * MAMMOGRAPHY (02/04/2018) Pathologist [facility] Mammogram Normal Historical Provider MD HEALTH MAINTENANCE Final Result * Hepatitis C antibody (04/24/2017 11:05 AM CDT) [facility] Hep C Ab NONREACT NONREACTIVE Comment: Siemens [employer] using NIKUNJ (chemiluminescent immunoassay) technology. NONREACTIVE: Antibodies [...] MICROBIOLOGY - GENERAL ORD ERABLES Final Result [facility] HISTORICAL RESULTS from Last 3 Months or Most Recently Relevant to Health Maintenance Insurance [address], [place] [id number] MEDICARE [facility] MEDICARE ADVANTAGE [facility] MEDICARE ADVANTAGE [employer] MEDICARE ADVANTAGE Advance Directives For more information, please contact: [phone] Documents on File Type Date Recorded Patient Art Psychotherapist Expl anation ADVANCE DIRECTIVE 12/07/2020 3:24 PM DNR ADVANCE DIRECTIVE 09/25/2013 12:00 AM [facility] INTERN FINANCIAL/MEDICAL Care Teams Floor Covering Printer Assistant Relationship Specialty Start Date End Date Nan Blair PA [address] [place] [address] PCP - General Family Medicine 07/03/22 Jorge Jefferson MD [address] [place] [address] Consulting Physician Family Medicine 03/09/19 Lizzie Collins MD [address] [address] Warehouse Inventory Clerk Cardiology 05/18/19 Freeman Chung MD [address] [place] [address] Referring Physician Geriatric Psychiatry 06/09/20 Maribel Andrade MD [address] [address] Consulting Physician Anesthesiology 12/31/20 Guy Rosen MD [address] [place] [address] Psychiatry 01/11/22
--- NOTE | 2025-02-25 20:48 | PC.NURSE ---
This RN spoke with pt facility and updated about pt POC
[2025-02-25 20:49] VITALS: BP 152/90; PULSE 83; RESP 17; O2SAT 98
[2025-02-25 20:52] VITALS: BP 152/90; PULSE 83; RESP 17; O2SAT 98
== END 2025-02-25 20:56 ==
PROVIDERS: Emergency Medicine; Physician Assistant; Emergency Provider Physician Assistant; PCP Physician Assistant
DX: R00.2 Palpitations (principal); R42 Dizziness and giddiness; I48.91 Unspecified atrial fibrillation; G30.9 Alzheimer's disease, unspecified; F02.80 Dementia in other diseases classified elsewhere, unspecified severity, without behavioral disturbance, psychotic disturbance, mood disturbance, and anxiety; Z79.01 Long term (current) use of anticoagulants; Z79.82 Long term (current) use of aspirin; Z79.899 Other long term (current) drug therapy; R94.31 Abnormal electrocardiogram [ECG] [EKG]
CPT/HCPCS: 36415; 71046; 80053; 83690; 83735; 84443; 84484; 85025; 85610; 85730; 93005; 99284

== ENCOUNTER 2025-04-08 14:47 | Emergency (ER) | payer MEDICARE, SELFPAY ==
--- NOTE | ~2025-04-08 | XR_ITS ---
XR ankle LT min 3V Ordering provider: Cooper Tatum MD History: . injury. TWISTED ANKLE AND FELL . Comparison: None. FINDINGS: BONES: No definite acute fracture or dislocation. Possible lucency in the distal fibula is not exclud ed. Clinical correlation and follow-up advised. JOINT SPACES: Severe narrowing of the ankle joint with slight malalignment between the talar mortise and the distal tibia. SOFT TISSUES: Soft tissue swelling over both malleoli. Calcaneal spur. IMPRESSION: No definite acute osseous abnormality left ankle. Possible lucency in the distal fibula is marked exc luded. Severe osteoarthritic changes of the ankle joint. Reviewed, dictated and finalized at location A. IMPRESSION: No definite acute osseous abnormality left ankle. Possible lucency in the dista l fibula is marked excluded. Severe osteoarthritic changes of the ankle joint.
--- NOTE | ~2025-04-08 | CT_ITS ---
CT brain wo con Ordering provider: Cooper Tatum MD History: 74 years Female with . fall, on blood thinners . Comparison: None. Technique: CT of the head without contrast. Radiation reduction technique utilized.The dose-length pr oduct was 681 mGy-cm. FINDINGS: BRAIN PARENCHYMA AND CSF SPACES: Moderate leukoaraiosis and diffuse cortical atrophy. Moderate athero matous disease. No midline shift, mass effect or hemorrhage. The brain parenchyma and CSF spaces are otherwise normal. VISUALIZED PARANASAL SINUSES: Well aerated. MASTOIDS: Well aerated. BONES: The bones appear intact. SOFT TISSUES: Visualized nasopharynx is normal. Superficial soft tissues are normal. IMPRESSION: No acute intracranial findings. Reviewed, dictated and finalized at location A.
--- NOTE | ~2025-04-08 | CT_ITS ---
History: Fall PROCEDURE: CT cervical spine without intravenous contrast. COMPARISON: None TECHNIQUE: Multiple contiguous axial images of the cervical spine were performed without the administration of i ntravenous contrast. DLP: 329 mGy-cm FINDINGS: Straightening and slight reversal of the normal curvature of the cervical spine is identified. Significant degenerative disease is identified within the cervical spine. 4.7 mm of anterolisthesis of C3 onto C4 is identified. Osteophyte formation and disc space narrowing is also noted, along with subchondral cyst formation. Facet arthropathy is also present. No acute fractures are noted. The bilateral lung apices demonstrate patchy opacification suggesting vascular congestion. No soft tissue abnormality is appreciated. The airway is patent. Impression: Significant degenerative disease, without acute fracture. Reviewed, dictated and finalized at location A. Impression: Significant degenerative disease, without acute fracture.
[2025-04-08 14:50] VITALS: BP 126/84; PULSE 53; RESP 20; TEMP 36.9; O2SAT 96
--- OUTSIDE RECORDS SUMMARY | 2025-04-08 14:51 | XMS_ITS | Encounter Summary ---
Author Organization [facility] Care Team Providers Care Property Utilization Manager Name Role Phone Nan Blair Primary Care Provider [phone] Jorge Jefferson MD Primary Care Provid er Nan Blair Unavailable [phone] Nan Blair Primary Care Provider [phone] Jorge Jefferson MD Unavailable [phone] Lizzie Collins MD Unavailable [phone] Freeman Chung MD Unavailable [phone] Maribel Andrade MD Unavailable [phone] Guy Rosen MD Unavailable Miscellaneous, Not In File Primary Care Provider Unavailable Nan Blair Primary Care Provider [phone] Encounter Details Date Type Department Care Team (Latest Contact Info) Description 04/17/2017 Orders Only [facility] ProviderJulieta MD [address] [place] [address] Social History Tobacco Use Types Packs/Day Years Used Date Smoking Tobacco: Never Assessed Comments Unknown Sex and Gender Information Value Date Recorded Sex Assigned at Not on file Legal Sex Female 1:09 AM GEM CUTTER Gender Identity Female 10/05/2020 10:15 AM GEM CUTTER Sexual Orientation Straight 10/05/2020 10 :15 AM GEM CUTTER documented as of this encounter Plan of [...] on filedocumented in this encounter Care Teams Property Utilization Manager Relationship Specialty Start Date End Date Nan Blair PA [address] [place] [address] PCP - General Physician Oracle Database Analyst 04/28/18 02/01/19 Jorge Jefferson MD [address] [place], [place] [address] PCP - General Family Medicine 02/02/19 03/08/19 Nan Blair PA [address] [place] [address] PCP - General Physician Oracle Database Analyst 03/09/19 05/03/22 Miscellaneous, Not In File PCP - General 05/04/22 07/02/22 aNn Blair PA [address] [facility], [place] [address] PCP - General Family Medicine 07/03/22 Nan Blair PA [address] [place], [place] [address] Physician Oracle Database Analyst Physician Oracle Database Analyst 02/02/19 9 Jorge Jefferson MD [address] [place] [address] Consulting Physician Family Medicine 03/09/19 Lizzie Collins MD [address] [address] Rubble Placer Cardiology 05/18/19 Freeman Chung MD [address] [place] [address] Referring Physician Geriatric Psychiatry 06/09/20 Maribel Andrade MD [address] [address] Consulting Physician Anesthesiology 12/31/20 Guy Rosen MD [address] [place] [address] Psychiatry 01/11/22 documented as of this encounter
--- OUTSIDE RECORDS SUMMARY | 2025-04-08 14:51 | XMS_ITS | Encounter Summary ---
Author Organization [facility] Address [address] [facility] [address] [place] [address] Phone Care Team Providers Care Game Engineer Name Role Phone Nan Blair Primary Care Provider [phone] Jorge Jefferson MD Primary Care Provid er Nan Blair Unavailable [phone] Nan Blair Primary Care Provider [phone] Jorge Jefferson MD Unavailable + [phone] Lizzie Collins MD Unavailable [phone] Freeman Chung MD Unavailable [phone] Maribel Andrade MD Unavailable [phone] Guy Rosen MD Unavailable Miscellaneous, Not In File Primary Care Provider Unavailable Nan Blair Primary Care Provider [phone] Encounter Details Date Type Department Care Team (Latest Contact Info) Description 11/01/2017 Orders Only [facility] Scanning, Provider Social History Tobacco Use Types Packs/Day Years Used Date Smoking Tobacco: Never Assessed Comments Unknown Sex and Gender Information Value Date Recorded Sex Assigned at Not on file Legal Sex Female 1:09 AM CRAB PICKER Gender Identity Female 10/05/2020 10:15 AM CRAB PICKER Sexual Orientation Straight 10/05/2020 10 :15 AM CRAB PICKER documented as of this encounter Plan of Treatment Not on file documented as of this encounter Procedures Procedure Name Priority Date/Time Associated Diagnosis Comments SCAN - RADIOLOGY/IMAGING 11/01/2017 documented in this encounter Results * SCAN - RADIOLOGY/IMAGING (11/01/2017) Anatomical Region Laterality Modality Other us Provider Scanning Final Result documented in this encounter Visit Diagnoses Not on filedocumented in this encounter Care Teams Game Engineer Relationship Specialty Start Date End Date Nan Blair PA [address] [place] [address] PCP - General Physician Underwater Trapper 04/28/18 02/01/19 Jorge Jefferson MD [address] [place] [address] PCP - General Family Medicine 02/02/19 03/08/19 Nan Blair PA [address] [place] [address] PCP - General Physician Underwater Trapper 03/09/19 05/03/22 Miscellaneous, Not In File PCP - General 05/04/22 07/02/22 Nan Blair PA [address] [place] [address] PCP - General Family Medicine 07/03/22 Nan Blair PA [address] [place] [address] Physician Underwater Trapper Physician Underwater Trapper 02/02/19 9 Jorge Jefferson MD [address] [place] [address] Consulting Physician Family Medicine 03/09/19 Lizzie Collins MD [address] [address] System Operation Superintendent Cardiology 05/18/19 Freeman Chung MD [address] [place] [address] Referring Physician Geriatric Psychiatry 06/09/20 Maribel Andrade MD [address] [facility] [address] [address] Consulting Physician Anesthesiology 12/31/20 Guy Rosen MD [address] [place] [address] Psychiatry 01/11/22 documented as of this encounter
--- OUTSIDE RECORDS SUMMARY | 2025-04-08 14:51 | XMS_ITS | Clinical Summary ---
Author Organization [facility] Address [address] [place] [address] Care Team Providers Care Proof Clerk Name Role Phone Jorge Jefferson MD Unavailable [phone] Lizzie Collins MD Unavailable [phone] Freeman Chung MD Unavailable [phone] Maribel Andrade MD Unavailable [phone] Guy Rosen MD Unavailable Nan Blair Primary Care Provider [phone] Allergies Active Allergy Reactions Criticality Noted Date Comments Amoxicillin Unknown 02/02/2019 Codeine Other (See comments),Dizziness,Naus ea And Vomiting,Unknown Low 03/16/2016 Spaced out and sick to stomach Spaced out and sick to stomach confusion, n/v Butters Other (See comments),Unknown Low 02/02/2019 Severe reaction-Kidney failure Severe reaction-Kidney failure Severe reaction-Kidney failure Morphine Unknown,Vomiting Low 10/13/2018 *pt not aware of reaction; can't remember but knows she should not take this. vomiting Olanzapine Delusions Medium 11/09/2018 Confusion Penicillins Hives,Swelling,Unkno wn,U rticaria Medium 03/16/2016 Hives Medications cholecalciferol (VITAMIN D-3) 25 mcg (1,000 unit) [...] ONCE DAILY 14 tablet 3 3 Active albuterol HFA (PROVENTIL HFA,VENTOLIN HFA,PROAIR HFA) 90 mcg/actuation inhaler Inhale 2 puffs every 6 (six) hours as needed for wheezing Active naltrexone (DEPADE) 50 mg tabletIndicatio ns:Alcohol use disorder, moderate (HCC) Take 1 tablet (50 mg total) by mouth daily 30 tablet 3 4 07/29/20 25 Active donepeziL (ARICEPT) 5 mg tablet Take 1 tablet (5 mg total) by mouth daily Discontinue 10 mg donepezil. Take 5 mg donepezil daily for 2 weeks and then discontinue. 14 tablet 5 Active lamoTRIgine (LaMICtal) 25 mg tablet Take 2 tablets (50 mg total) by mouth 2 (two) times a day 120 tablet 9 5 Active Eliquis 5 mg tablet 5 Active Matzim LA 240 mg 24 hr tablet 5 Active Active Problems Problem Noted Date Diagnosed Date Chronic atrial fibrillation 02/24/2025 Mitral valve insufficiency 02/24/2025 Hospital discharge follow-up 02/24/2025 Seizure disorder 11/27/2024 Assessment & Plan (11/27/2024 1:17 PM TREE CLIMBER): Patient had a seizure 1 year ago. [...] 10/12/2020 Assessment & Plan (11/27/2024 10:55 AM TREE CLIMBER): Progressing. Patient will continue Namenda and Aricept. [...] ASL Assessment & Plan (11/15/2021 10:29 AM TREE CLIMBER): Worsening. Patient will continue current meds. Followed [...] is not addictive. Agree with move to [facility]. Continue to work with Dr. Andrade, counselor and cognitive stimulation therapist. Assessment & Plan (10/12/2020 11:27 AM TREE CLIMBER): Followed by neurology, unchanged Class 1 obesity due to exces s calories with serious comorbidity and body mass index (BMI) of 31.0 to 31.9 in adult 08/26/2019 Assessment & Plan (05/07/2023 2:29 PM CDT): Reviewed BMI Focus on healthy diet options Work on healthy changes Assessment & Plan (11/15/2021 10:28 AM TREE CLIMBER): Uncontrolled. Goal of BMI is less than [...] month Assessment & Plan (10/12/2020 11:26 AM TREE CLIMBER): Educated patient on healthy diet/exercise plan. Exercise [...] sugar. Assessment & Plan (08/26/2019 1:23 PM TREE CLIMBER): Educated patient on healthy diet/exercise plan. Exercise [...] 05/25/2020 Assessment & Plan (11/15/2021 10:28 AM TREE CLIMBER): PMH/MHA: 11/15/2021 Last pap:2013 Last mammogram: 02/04/2018 (requested report) Last dexa:02/04/2018, ordered Last colonoscopy/cologuard:08/2015, 12/16/2018 repeat 2023 Last Hep C:04/2017 Last tdap:04/08/2013 Last Prevnar/pneumovax: 05/18/2015 (13) 07/18/2011 (23) Last Shingrix: (zoster 10/07/2012) 10/16/2018, 07/03/2018 Last eye exam: 05/25/2020 Assessment & Plan (10/12/2020 11:27 AM TREE CLIMBER): PMH/MHA: 10/12/2020 Last pap:2013 Last mammogram: 02/04/2018 Last dexa:02/04/2018 Last colonoscopy/cologuard:08/2015, 12/16/2018 repeat 2023 Last Hep C:04/2017 Last tdap:04/08/2013 Last Prevnar/pneumovax: 05/18/2015 (13) 07/18/2011 (23) Last Shingrix: (zoster 10/07/2012) 10/16/2018, 07/03/2018 Last eye exam: 05/25/2020 Assessment & Plan (08/26/2019 1:10 PM TREE CLIMBER): PMH/MHA: 08/26/2019 Last pap:2013 Last mammogram: 02/04/2018 Last dexa:02/04/2018 Last colonoscopy/cologuard:08/2015, 12/16/2018 repeat 2023 Last Hep C:04/2017 Last tdap:04/08/2013 Last Prevnar/pneumovax: 05/18/2015 (13) 07/18/2011 (23) Last Shingrix: (zoster 10/07/2012) 10/16/2018, 07/03/2018 Last eye exam: due Recurrent major depressive disorder, in partial remission 10/13/2018 Assessment & Plan (05/07/2023 3:58 PM CDT): Chronic. Continue follow-up psychiatry. Assessment & Plan (11/15/2021 10:29 AM TREE CLIMBER): Stable continue meds Assessment & Plan (10/12/2020 11:28 AM TREE CLIMBER): Stable, followed by Psychiatry Assessment & Plan (05/23/2020 3:09 PM CDT): Strongly recommend consistent care and follow-up with [facility] Psychiatry to evaluate and treat [...] psychiatry Assessment & Plan (10/16/2019 1:12 PM TREE CLIMBER): Uncontrolled. Assessment & Plan (10/14/2019 1:02 PM TREE CLIMBER): Uncontrolled. I really feel like pt is very lonely and she needs daily interaction with other people. Encouraged pt to consider a fpc center to open her world to new hobbies, interactions with other. Need referral to psychiatrist. Need to see counselor within the next 2 wks. Memory issues may be related to depression. Assessment & Plan (08/26/2019 1:24 PM TREE CLIMBER): Referral to psychiatrist Generalized anxiety disorder 03/12/2018 Assessment & Plan (05/07/2023 3:57 PM CDT): Chronic. Continue follow-up with psychiatrist. Assessment & Plan (11/15/2021 10:28 AM TREE CLIMBER): Stable, continue current meds Assessment & Plan (10/12/2020 11:26 AM TREE CLIMBER): Stable followed by Psychiatry Assessment & Plan (02/19/2020 3:30 PM CDT): Stable Assessment & Plan (11/18/2019 4:05 PM TREE CLIMBER): Patient will hold lorazepam at this time. She is not having any anxiety Assessment & Plan (10/14/2019 1:03 PM TREE CLIMBER): Referral psychiatrist Assessment & Plan (08/26/2019 1:22 PM TREE CLIMBER): Stable Bipolar 1 disorder, depressed, moderate 11/06/19 18 Assessment & Plan (11/27/2024 1:17 PM TREE CLIMBER): Chronic, stable, patient will continue her medications for Alzheimer's to include Aricept and Namenda. No additional meds needed at this time Assessment & Plan (05/07/2023 3:57 PM CDT): Chronic. Continue follow-up with psychiatrist. Assessment & Plan (11/15/2021 10:27 AM TREE CLIMBER): Stable Assessment & Plan (10/12/2020 11:26 AM TREE CLIMBER): Stable followed by Psychiatry Assessment & Plan (05/02/2020 2:11 PM CDT): Follow with psychiatry Assessment & Plan (02/19/2020 3:30 PM CDT): Patient has not made appointment with a psychiatrist. Patient reports she is feeling stable on her current meds. I encouraged patient to make a Psychiatry appointment Assessment & Plan (11/18/2019 4:05 PM TREE CLIMBER): Uncontrolled. Increase Wellbutrin to 300 mg. Patient needs to see a psychiatrist. Patient given a list of psychiatrist in the area. I spoke with her jaspreeton not too long ago about patient needing to see the psychiatrist and also patient needing to consider moving into some type of fpc center to have interactions with other people Assessment & Plan (10/16/2019 3:21 PM TREE CLIMBER): Uncontrolled. Pt does not have a psychiatrist [...] consider looking into inpatient psychiatric care at [facility] in [place]. Patient's son will be contacting his brother and they will be deciding what to do in the next day or so. Patient will be monitor closely over the weekend by Papo. Assessment & Plan (10/14/2019 1:03 PM TREE CLIMBER): Uncontrolled, referral to psychiatrist. Assessment & Plan (08/26/2019 1:22 PM TREE CLIMBER): Depressed, need to see psychiatry for medication adjustment. Essential (primary) hypertension 08/15/2017 Assessment & Plan (11/27/2024 2:03 PM TREE CLIMBER): Episodes of hypotension. We are going to hold amlodipine. We are going to have Dayna Beatty [facility] living check her blood pressure daily and report numbers in 1 week. Assessment & Plan (05/07/2023 3:57 PM CDT): Chronic and controlled without medication. Continue to monitor. Assessment & Plan (11/15/2021 10:28 AM TREE CLIMBER): Stable, continue current meds Assessment & Plan (10/12/2020 11:26 AM TREE CLIMBER): Stable continue meds Assessment & Plan (02/19/2020 3:30 PM CDT): Stable Assessment & Plan (11/18/2019 4:05 PM TREE CLIMBER): Stable continue meds Assessment & Plan (08/26/2019 1:22 PM TREE CLIMBER): Stable, continue current meds Primary osteoarthritis of right knee 08/15/2017 Assessment & Plan (05/07/2023 2:31 PM CDT): Continue Tylenol as needed for pain. Assessment & Plan (11/15/2021 10:29 AM TREE CLIMBER): Patient takes Tylenol for pain. Assessment & Plan (10/12/2020 11:28 AM TREE CLIMBER): Uncontrolled. Patient will hopefully get to start physical therapy soon once her insurance has been reinstated. Patient may also need to see Ortho in the near future Assessment & Plan (08/26/2019 1:24 PM TREE CLIMBER): stable Unsteady gait 11/09/2016 Assessment & Plan (05/07/2023 3:58 PM CDT): Completed physical therapy. No recent falls. Assessment & Plan (11/15/2021 10:29 AM TREE CLIMBER): Recommend physical therapy. Recommend using a cane Assessment & Plan (10/12/2020 11:29 AM TREE CLIMBER): Uncontrolled. Patient is doing okay with her [...] daily. Assessment & Plan (08/26/2019 1:24 PM TREE CLIMBER): Use cane at all times, Recommend PT. Pt will consider that. Assessment & Plan (02/02/2019 11:25 AM CDT): Order physical therapy Glucose intolerance (impaired glucose tolerance) 09/03/2016 Assessment & Plan (05/07/2023 3:57 PM CDT): Diet controlled. Labs ordered today. Assessment & Plan (11/15/2021 10:28 AM TREE CLIMBER): Diet controlled, requested lab results Assessment & Plan (10/12/2020 11:27 AM TREE CLIMBER): Stable, diet controlled Assessment & Plan (02/19/2020 3:30 PM CDT): Diet controlled check labs Assessment & Plan (08/26/2019 1:23 PM TREE CLIMBER): Diet controlled, due for labs Obstructive sleep apnea 08/14/2016 Assessment & Plan (05/07/2023 2:30 PM CDT): Not on CPAP. Assessment & Plan (11/15/2021 10:29 AM TREE CLIMBER): Stable Assessment & Plan (10/12/2020 11:28 AM TREE CLIMBER): Stable, no CPAP machine at this time Assessment & Plan (08/26/2019 1:13 PM TREE CLIMBER): No cpap machine Other allergic rhinitis 08/14/2016 Assessment & Plan (05/07/2023 2:30 PM CDT): Continue current management. Assessment & Plan (11/15/2021 10:29 AM TREE CLIMBER): Stable Assessment & Plan (10/12/2020 11:28 AM TREE CLIMBER): Stable p.r.n. meds Assessment & Plan (08/26/2019 1:23 PM TREE CLIMBER): stable Atrial flutter 02/14/2016 Overview (02/08/2025): Last Assessment & Plan: Stable Last Assessment & Plan: Stable Other specified hypothyroidism 12/30/2015 Assessment & Plan (05/07/2023 2:30 PM CDT): Continue current dose of levothyroxine. Due for TSH. Assessment & Plan (11/15/2021 10:29 AM TREE CLIMBER): Stable, continue meds, requested lab Assessment & Plan (10/12/2020 11:28 AM TREE CLIMBER): Stable continue meds Assessment & Plan (02/19/2020 3:31 PM CDT): Check labs Assessment & Plan (08/26/2019 1:24 PM TREE CLIMBER): Stable, check labs Mixed hyperlipidemia 12/30/2015 Assessment & Plan (05/07/2023 2:30 PM CDT): Diet controlled. Will continue to monitor lipid panel. Assessment & Plan (11/15/2021 10:29 AM TREE CLIMBER): Diet controlled. Requested lab Assessment & Plan (10/12/2020 11:28 AM TREE CLIMBER): Stable, patient is not on meds at this time Assessment & Plan (02/19/2020 3:31 PM CDT): Check labs Assessment & Plan (08/26/2019 1:23 PM TREE CLIMBER): Check labs Vitamin D deficiency 12/30/2015 Assessment & Plan (05/07/2023 2:31 PM CDT): Continue vitamin-D supplement. Assessment & Plan (11/15/2021 10:30 AM TREE CLIMBER): Stable continue vitamin Assessment & Plan (10/12/2020 11:29 AM TREE CLIMBER): Stable continue vitamin Assessment & Plan (02/19/2020 3:31 PM CDT): Check labs Assessment & Plan (08/26/2019 1:25 PM TREE CLIMBER): Continue vit d Resolved Problems Problem Noted Date Diagnosed Date Resolved Date Unspecified mood (affective) disorder ([facility]) 03/21/2020 11/15/2021 Assessment & Plan (10/12/2020 11:29 AM TREE CLIMBER): Stable followed by Psychiatry Assessment & Plan [...] 2 Assessment & Plan (10/12/2020 11:28 AM TREE CLIMBER): Stable continue meds Assessment & Plan (11/18/2019 4:05 PM TREE CLIMBER): With patient's change in urinary symptoms I would like to hold the VESIcare and see how she does. UA in office today was negative Assessment & Plan (08/26/2019 1:24 PM TREE CLIMBER): Stable, continue meds Mild neurocognitive disorder 12/20/2017 [...] 2019 Assessment & Plan (10/14/2019 1:03 PM TREE CLIMBER): Referral to memory clinic at [facility]. Scores show mild decline. Assessment & Plan (08/26/2019 1:23 PM TREE CLIMBER): Need to rtc for memory testing. 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 08/26/2019 Leucocytosis 03/26/2017 08/26/2019 MARTIN (dyspnea on exertion) 12/11/2016 History of IBS 09/03/2016 08/26/2019 History of radiofrequency ab lation procedure for cardiac arrhythmia 09/03/2016 08/26/2019 Vulvar dystrophy 09/03/2016 10/12/2020 Assessment & Plan (08/26/2019 1:25 PM TREE CLIMBER): Stable History of rhabdomyolysis 08/14/2016 Atrial flutter (CMS/HCC) 02/14/201606/2022 Assessment & Plan (10/12/2020 11:26 AM TREE CLIMBER): Stable Assessment & Plan (02/19/2020 3:30 PM CDT): Stable Assessment & Plan (08/26/2019 1:22 PM TREE CLIMBER): Stable followed by cardiology Encounters Date Type Department Care Team Description 02/24/2025 8:30 AM CDT Office Visit [facility] Medical Group Cardiology [address] [place] [address] Kassandra Shannon NP Chronic atrial fibrillation (HCC) (Primary Dx); Mitral valve insufficiency, unspecified etiology; Hospital discharge follow-up 02/03/2025 Orders Only [facility] Medical [facility] Cardiology [address] [place] [address] Kassandra Shannon NP 01/27/2025 1:45 PM CDT Office Visit [facility] Diagnostic [place] [address] [place] [id number] Betsy Ryan NP 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) (Primary Dx) 01/13/2025 Orders Only [facility] Scanning, Provider 01/12/2025 Documentation [facility] Memory Diagnostic [place] [address] [place] [id number] Sherly Ivey, MIRA 01/08/2025 Telephone [facility] [address] [place] [address] Harriett Sutherland, A from Last 3 Months Immunizations Immunization Administration [...] Vitamin D deficiency 12/30/2015 Hypothyroidism Head injury 1958 3rd grade, uncon scious, doc office and [...] on file Legal Sex Female 1:09 AM TREE CLIMBER Gender Identity Female 10/05/2020 10:15 AM TREE CLIMBER Sexual Orientation Straight 10/05/2020 10 :15 AM TREE CLIMBER 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 Not on file Not on file Obstetrics History Last Filed Vital Signs Vital Sign Reading Time Taken Comments Blood Pressure 116/78 02/24/2025 8:31 AM CDT Pulse 73 02/24/2025 8:31 AM CDT Temperature 36.8 C (98.3 F) 01/27/2025 1:38 PM CDT Respiratory Rate 16 11/27/2024 10:05 AM TREE CLIMBER Oxygen Saturation 95% 02/24/2025 8:31 AM CDT Inhaled Oxygen Concentration - - Weight 86.2 kg (190 lb) 02/24/2025 8:31 AM CDT Height 165.1 cm (5' 5) 02/24/2025 8:31 AM CDT Body Mass Index [...] SCAN - NEUROLOGY 01/13/2025 4:59 PM CDT DEXA AXIAL SKELETON BONE DENSITY 1 OR [...] Modality Other Provider Scanning Final Result * Dexa Axial Skeleton Bone Density 1 or 2 Site (05/07/2022 12:52 PM CDT) Anatomical Region Laterality Modality Body N/A Mammography 05/07/2022 1:53 PM CDT Narrative 05/07/2022 1:54 PM CDT EXAM DESCRIPTION: DEXA AXIAL SKELETON BONE DENSITY 1 OR MORE SITES REASON FOR STUDY: 71 y/o year old F with given history of screening. 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 TB: TB Report ID: [id number] Reading Location: [id number] Procedure Note MoonLanette MD - 05/07/2022 EXAM DESCRIPTION: DEXA AXIAL SKELETON BONE DENSITY 1 OR MORE SITES REASON FOR STUDY: 71 y/o year old F with given history ofscreening. Paper Coating Machine Operator/Model: [employer] A ([id number]/N [id number]) CLINICAL INFORMATION: Current height: 64 inches Maximum [...] Lanette Gloria M.D. TB: TB Report ID: [id number] Reading Location: [place] [address] Nan RILEY IMG DXA PROCEDURES Final Resul t * COLONOSCOPY (12/16/2018) Colonoscopy Abnormal Historical Provider MD HEALTH MAINTENANCE Final Result * MAMMOGRAPHY (02/04/2018) Pathologist [facility] Mammogram Normal Historical Provider MD HEALTH MAINTENANCE Final Result * Hepatitis C antibody (04/24/2017 11:05 AM CDT) [facility] Hep C Ab NONREACT NONREACTIVE 04/24/2017 8:34 PM CDT [facility] HISTORICAL RESULTS Comment: Siemens CentaurXP [...] MICROBIOLOGY - GENERAL ORD ERABLES Final Result [facility] HISTORICAL RESULTS from Last 3 Months or Most Recently Relevant to Health Maintenance Insurance [address] [place] [id number] MEDICARE [facility] MEDICARE ADVANTAGE [place] [id number] [facility] MEDICARE ADVANTAGE Member Subscriber Plan / Payer (Ef fective 2021-Present) Name:Kriss Worley Relation to Subscriber:Self Name:Kriss Worley Payer ID:[id number] (NA) Type:UHC MEDICARE Address: [place] [id number] [place] [id number] [facility] MEDICARE ADVANTAGE Advance Directives For more information, please contact: [phone] Documents on File Type Date Recorded Patient Gas Generator Operator Expl anation ADVANCE DIRECTIVE 12/07/2020 3:24 PM DNR ADVANCE DIRECTIVE 09/25/2013 12:00 AM [facility] OF CASE MANAGEMENT SPECIALIST FINANCIAL/MEDICAL Care Teams Proof Clerk Relationship Specialty Start Date End Date Nan Blair PA [address] [place] [address] PCP - General Family Medicine 07/03/22 Jorge Jefferson MD [address] [place] [address] Consulting Physician Family Medicine 03/09/19 Lizzie Collins MD [address] [address] Mail Officer Cardiology 05/18/19 Freeman Chung MD [address] [place] [address] Referring Physician Geriatric Psychiatry 06/09/20 Maribel Andrade MD [address] [address] Consulting Physician Anesthesiology 12/31/20 Guy Rosen MD [address] [place] [address] Psychiatry 01/11/22
--- OUTSIDE RECORDS SUMMARY | 2025-04-08 14:51 | XMS_ITS | Clinical Summary ---
Author Organization [facility] Address [address] [place] [address] Care Team Providers Care Microfilm Machine Operator Name Role Phone Nan Blair Primary Care Provider Allergies Active Allergy Reactions Criticality Noted Date Comments Codeine Nausea and Vomiting,Other (see comment) Low 03/16/2016 Spaced out and sick to stomach [place] Other (see comment) Low 02/02/2019 Severe reaction-Kidney [...] October 2019 Bipolar 1 disorder, depressed, moderate ([facility]) 11/06/2017 Overview (03/17/2020): Last Assessment & Plan: Patient has not made appointment with a psychiatrist. Patient reports she is feeling stable on her current meds. I encouraged patient to make a Psychiatry appointment Bipolar 1 disorder, depressed, moderate ([facility]) 10/30/2017 Mild cognitive impairment with [...] Last Assessment & Plan: stable Atrial flutter ([facility]) 02/14/2016 Overview (03/17/2020): Last Assessment [...] 6:27 AM CDT Height 167.6 cm (5' 6) 03/17/2020 5:41 AM CDT Body Mass Index [...] to complete this topic Insurance MED REPLACE [facility] MEDICARE MED REPLACE [facility] MEDICARE Advance Directives Documents on File Type Date Recorded Patient 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
--- OUTSIDE RECORDS SUMMARY | 2025-04-08 14:51 | XMS_ITS | Encounter Summary ---
Author Organization [facility] Facility Care Team Providers Care Paper Twister Tender Name Role Phone Nan Blair Primary Care Provider [phone] Jorge Jefferson MD Primary Care Provid er Nan Blair Unavailable [phone] Nan Blair Primary Care Provider [phone] Jorge Jefferson MD Unavailable + [phone] Lizzie Collins MD Unavailable [phone] Freeman Chung MD Unavailable [phone] Maribel Andrade MD Unavailable [phone] Guy Rosen MD Unavailable Miscellaneous, Not In File Primary Care Provider Unavailable Nan Blair Primary Care Provider [phone] Encounter Details Date Type Department Care Team (Latest Contact Info) Description 11/01/2017 Orders Only [facility] CLINCONV ProviderJulieta MD [address] [place] [address] Social History Tobacco Use Types Packs/Day Years Used Date Smoking Tobacco: Never Assessed Comments Unknown Sex and Gender Information Value Date Recorded Sex Assigned at Not on file Legal Sex Female 1:09 AM ACCOUNTING CLERKS SUPERVISOR Gender Identity Female 10/05/2020 10:15 AM ACCOUNTING CLERKS SUPERVISOR Sexual Orientation Straight 10/05/2020 10 :15 AM ACCOUNTING CLERKS SUPERVISOR documented as of this encounter Plan of Treatment Not on file documented as of this encounter Procedures Procedure Name Priority Date/Time Associated Diagnosis Comments CARDIOLOGY REPORT 11/01/2017 12: 00 AM ACCOUNTING CLERKS SUPERVISOR documented in this encounter Results * CARDIOLOGY REPORT (11/01/2017 12:00 AM ACCOUNTING CLERKS SUPERVISOR) Anatomical Region Laterality Modality Other Narrative 11/01/2017 12:00 AM ACCOUNTING CLERKS SUPERVISOR Ordered by an unspecified provider. us Historical Provider [facility] Final Result documented in this encounter Visit Diagnoses Not on filedocumented in this encounter Care Teams Paper Twister Tender Relationship Specialty Start Date End Date Nan Blair PA [address] [place] [address] PCP - General Physician Instant Potato Processor 04/28/18 02/01/19 Jorge Jefferson MD [address] [place] [address] PCP - General Family Medicine 02/02/19 03/08/19 Nan Blair PA [address] [place] [address] PCP - General Physician Instant Potato Processor 03/09/19 05/03/22 Miscellaneous, Not In File PCP - General 05/04/22 07/02/22 Nan Blair PA [address] [place] [address] PCP - General Family Medicine 07/03/22 Nan Blair PA [address] [place] [address] Physician Instant Potato Processor Physician Instant Potato Processor 02/02/19 9 Jorge Jefferson MD [address] [place] [address] Consulting Physician Family Medicine 03/09/19 Lizzie Collins MD [address] [address] Yarn Twister Cardiology 05/18/19 Freeman Chung MD [address] [place] [address] Referring Physician Geriatric Psychiatry 06/09/20 Maribel Andrade MD [facility] [address] Consulting Physician Anesthesiology 12/31/20 Guy Rosen MD [address] [place] [address] Psychiatry 01/11/22 documented as of this encounter
--- OUTSIDE RECORDS SUMMARY | 2025-04-08 14:51 | XMS_ITS | Encounter Summary ---
Author Organization [facility] Facility Care Team Providers Care Lye Peel Operator Name Role Phone Nan Blair Primary Care Provider [phone] Jorge Jefferson MD Primary Care Provid er Nan Blair Unavailable [phone] Nan Blair Primary Care Provider [phone] Jorge Jefferson MD Unavailable + [phone] Lizzie Collins MD Unavailable [phone] Freeman Chung MD Unavailable [phone] Maribel Andrade MD Unavailable [phone] Guy Rosen MD Unavailable Miscellaneous, Not In File Primary Care Provider Unavailable Nan Blair Primary Care Provider [phone] Encounter Details Date Type Department Care Team (Latest Contact Info) Description 08/15/2017 Orders Only [facility] CLINCONV ProviderJulieta MD [address] [place] [address] Social History Tobacco Use Types Packs/Day Years Used Date Smoking Tobacco: Never Assessed Comments Unknown Sex and Gender Information Value Date Recorded Sex Assigned at Not on file Legal Sex Female 1:09 AM TERMINAL OPERATIONS MANAGER Gender Identity Female 10/05/2020 10:15 AM TERMINAL OPERATIONS MANAGER Sexual Orientation Straight 10/05/2020 10 :15 AM TERMINAL OPERATIONS MANAGER documented as of this encounter Plan of Treatment Not on file documented as of this encounter Procedures Procedure Name Priority Date/Time Associated Diagnosis Comments CARDIOLOGY REPORT 08/15/2017 12: 00 AM TERMINAL OPERATIONS MANAGER documented in this encounter Results * CARDIOLOGY REPORT (08/15/2017 12:00 AM TERMINAL OPERATIONS MANAGER) Anatomical Region Laterality Modality Other Narrative 08/15/2017 12:00 AM TERMINAL OPERATIONS MANAGER Ordered by an unspecified provider. us Historical Provider [facility] Final Result documented in this encounter Visit Diagnoses Not on filedocumented in this encounter Care Teams Lye Peel Operator Relationship Specialty Start Date End Date Nan Blair PA [address] [place] [address] PCP - General Physician Medical Staff Specialist 04/28/18 02/01/19 Jorge Jefferson MD [address] [place] [address] PCP - General Family Medicine 02/02/19 03/08/19 Nan Blair PA [address] [place] [address] PCP - General Physician Medical Staff Specialist 03/09/19 05/03/22 Miscellaneous, Not In File PCP - General 05/04/22 07/02/22 Nan Blair PA [address] [place] [address] PCP - General Family Medicine 07/03/22 Nan Blair PA [address] [place] [address] Physician Medical Staff Specialist Physician Medical Staff Specialist 02/02/19 9 Jorge Jefferson MD [address] [place] [address] Consulting Physician Family Medicine 03/09/19 Lizzie Collins MD [address] [address] Wood Chopper Cardiology 05/18/19 Freeman Chung MD [address] [place] [address] Referring Physician Geriatric Psychiatry 06/09/20 Maribel Andrade MD [facility] [address] [address] Consulting Physician Anesthesiology 12/31/20 Guy Rosen MD [address] [place] [address] Psychiatry 01/11/22 documented as of this encounter
--- OUTSIDE RECORDS SUMMARY | 2025-04-08 14:51 | XMS_ITS | Encounter Summary ---
Author Organization [facility] Address [address] [facility] [address] [place] [address] Phone Care Team Providers Care Contract Paralegal Name Role Phone Nan Blair Primary Care Provider [phone] Jorge Jefferson MD Unavailable + [phone] Lizzie Collins MD Unavailable [phone] Freeman Chung MD Unavailable [phone] Maribel Andrade MD Unavailable [phone] Guy Rosen MD Unavailable Miscellaneous, Not In File Primary Care Provider Unavailable Nan Blair Primary Care Provider [phone] Encounter Details Date Type Department Care Team [...] on file Legal Sex Female 1:09 AM DIRECT MAIL COORDINATOR Gender Identity Female 10/05/2020 10:15 AM DIRECT MAIL COORDINATOR Sexual Orientation Straight 10/05/2020 10 :15 AM DIRECT MAIL COORDINATOR Occupation Industry Job Start Date Job [...] on filedocumented in this encounter Care Teams Contract Paralegal Relationship Specialty Start Date End Date Nan Blair PA [address] [place] [address] PCP - General Physician Hot Air Furnace Installer Repairer 03/09/19 05/03/22 Miscellaneous, Not In File PCP - General 05/04/22 07/02/22 Nan Blair PA [address] [place] [address] PCP - General Family Medicine 07/03/22 Jorge Jefferson MD [address] [place] [address] Consulting Physician Family Medicine 03/09/19 Lizzie Collins MD [address] [facility] [place] [address] Parking Lot Chauffeur Cardiology 05/18/19 Freeman Chung MD [address] [place] [address] Referring Physician Geriatric Psychiatry 06/09/20 Maribel Andrade MD [address] [facility] [address] [place] [address] Consulting Physician Anesthesiology 12/31/20 Guy Rosen MD [address] [place] [address] Psychiatry 01/11/22 documented as of this encounter
--- OUTSIDE RECORDS SUMMARY | 2025-04-08 14:51 | XMS_ITS | Encounter Summary ---
Author Organization [facility] Address [address] [facility] [address] [place] [address] Phone Care Team Providers Care First Coat Sander Name Role Phone Nan Blair Primary Care Provider [phone] Jorge Jefferson MD Unavailable + [phone] Lizzie Collins MD Unavailable [phone] Freeman Chung MD Unavailable [phone] Maribel Andrade MD Unavailable [phone] Guy Rosen MD Unavailable Miscellaneous, Not In File Primary Care Provider Unavailable Nan Blair Primary Care Provider [phone] Encounter Details Date Type Department Care Team [...] on file Legal Sex Female 1:09 AM SIEBEL DEVELOPER Gender Identity Female 10/05/2020 10:15 AM SIEBEL DEVELOPER Sexual Orientation Straight 10/05/2020 10 :15 AM SIEBEL DEVELOPER Occupation Industry Job Start Date Job [...] on filedocumented in this encounter Care Teams First Coat Sander Relationship Specialty Start Date End Date Nan Blair PA [address] [place] [address] PCP - General Physician Integrity Analyst 03/09/19 05/03/22 Miscellaneous, Not In File PCP - General 05/04/22 07/02/22 Nan Blair PA [address] [place] [address] PCP - General Family Medicine 07/03/22 Jorge Jefferson MD [address] [place] [address] Consulting Physician Family Medicine 03/09/19 Lizzie Collins MD [address] [facility] [place] [address] Technology Specialist Cardiology 05/18/19 Freeman Chung MD [address] [place] [address] Referring Physician Geriatric Psychiatry 06/09/20 Maribel Andrade MD [address] [address] Consulting Physician Anesthesiology 12/31/20 Guy Rosen MD [address] [place] [address] Psychiatry 01/11/22 documented as of this encounter
--- OUTSIDE RECORDS SUMMARY | 2025-04-08 14:51 | XMS_ITS | Clinical Summary ---
Author Organization [facility] Address [address] [place] [address] Care Team Providers Care Clinical Documentation Clerk Name Role Phone Nan Blair Primary Care Provider [phone] Source Comments [facility],non-owned Affiliates and Associated Physician Practices is amultiple site organization consisting of ambulatory clinics and hospital sitesin [place], [place], [place] and [place]. This disclosure is being madepursuant to the Care Everywhere program and may not contain all information available regarding this patient. Last updated 18.[facility] Allergies Active Allergy Reactions Criticality Noted Date Comments Codeine Dizziness 03/19/2020 Pyatt Other Low 02/02/2019 Severe reaction-Kidney failure Severe [...] Take 88 mcg by mouth once daily 11/29/201 7 Active vitamin D3-cholecalcife rol (CHOLECALCIFERO L) 25 MCG (1000 UNITS) tablet Take 1,000 Units by mouth once daily Active amLODIPine (NORVASC) 5 MG tablet Take 5 mg by mouth once daily 2 Active melatonin 5 MG tablet Take 5 mg by mouth at bedtime Active cyanocobalamin (VITAMIN B-12) 1000 MCG tablet Take 1 (one) tablet by mouth once daily 100 tablet 3 2 Active albuterol HFA (Proventil; Ventolin; Proair) 108 (90 Base) MCG/ACT inhaler Inhale 2 (two) puffs by mouth every 6 hours as needed Active Eliquis 5 MG tablet Take 1 (one) tablet by mouth 2 times daily 5 Active Aspirin Low Dose 81 MG chew tablet Take 1 (one) tablet by mouth once 5 Active Matzim LA 240 MG tablet Take 1 (one) tablet by mouth once daily 5 Active lamoTRIgine (LaMICtal) 25 MG tablet Take 2 (two) tablets by mouth 2 times daily 5 Active naltrexone (Revia) 50 MG tablet Take 1 (one) tablet by mouth once daily 4 07/29/20 25 Active donepezil (Aricept) 10 MG tabletIndicatio ns:Alzheimer's Disease Take 1 (one) tablet by mouth once daily Reasons: Alzheimer's Disease 90 tablet 5 5 Active memantine (Namenda) 10 MG tabletIndicatio ns:Alzheimer's Disease Take 1 (one) tablet by mouth 2 times daily Reasons: Alzheimer's Disease 180 tablet 5 5 Active donepezil (Aricept) 10 MG tabletIndicatio ns:Alzheimer's Disease Take 1 (one) tablet by mouth once daily Reasons: Alzheimer's Disease 90 tablet 3 4 03/24/20 25 Discontinu ed(Reorder ) memantine (Namenda) 10 MG tabletIndicatio ns:Alzheimer's Disease Take 1 (one) tablet by mouth 2 times daily Reasons: Alzheimer's Disease 180 tablet 3 4 03/24/20 25 Discontinu ed(Reorder ) Active Problems Problem Noted Date Diagnosed [...] Last Assessment & Plan: No cpap machine Encounters * This document contains information received from the source organization and may not represent a complete record from that organization. Date Type Department Care Team Description 04/02/2025 Travel 03/24/2025 Travel from Last 3 Months Immunizations Immunization Administration Dates Next Due FLU [...] Date Recorded Patient Health Questionnaire-2 Score 0 03/24/2025 Comments No Sex and Gender Information Value Date Recorded Sex Assigned at Not on file Legal Sex Female 6:28 AM COMPILATION CLERK Gender Identity Not on file Sexual Orientation Not on file Last Filed Vital Signs Vital Sign Reading Time Taken Comments Blood Pressure 124/86 03/24/2025 12:56 PM CDT Pulse 86 03/24/2025 12:56 PM CDT Temperature 36.3 C (97.4 F) 03/03/2024 3:44 PM CDT Respiratory Rate 20 05/22/2022 3:04 PM CDT Oxygen Saturation 98% 03/03/2024 3:44 PM CDT Inhaled Oxygen Concentration - - Weight 88.5 kg (195 lb) 03/24/2025 12:56 PM CDT Height 165.1 cm (5' 5) 03/24/2025 12:56 PM CDT Body Mass Index 32.45 03/24/2025 12:56 PM CDT Plan of Treatment Health Maintenance Due Date Last Done Comments COLOGKEILY (AGES 45-75) - COLON CA SCREENING 1949 COLON MONITORING 1949 COLONOSCOPY - COLON CA SCREENING 1949 CT COLONOGRAPHY - COLON CA SCREENING 1949 Colorectal Cancer Screening 1949 FIT - COLON CA SCREENING 1949 FLEX SIG - COLON CA SCREENING 1949 HEPATITIS C SCREENING 11/13/1967 MAMMOGRAM 02/05/2020 02/04/2018, 02/0 10/2016, 06/09/2015 LIPID TESTING 10/30/2022 10/30/2017 DTAP/TDAP/TD VACCINES (2 - Td or Tdap) 04/08/2023 04/08/2013 COVID-19 VACCINE ( - season) 2024 MEDICARE AWV CALENDAR YEAR 2024 Respiratory Syncytial Virus (RSV) Vaccine Pt: or over 60 yrs (1 - 1-dose 75+ series) 2024 ZOSTER VACCINE Completed 10/16/2018, 06/08, 10/07/2012 PNEUMOCOCCAL VACCINE 50+ Completed 019, 05/18/2015, 07/18/2011 BONE DENSITY TESTING Completed 05/07/2022, 02/04/2018, 06/09/2015 INFLUENZA VACCINE Completed 07/07/2024, , 08/01/2021, Additional history exists DEPRESSION SCREENING Completed 03/24/2025, 07/15/2024, 03/03/2024, Additional history exists HEPATITIS B VACCINE Aged Out No longe [...] patient's age to complete this topic Insurance [facility] MANAGED MEDICARE ADV [employer] MANAGED MEDICARE ADV Advance Directives * Full Code (Latest Code Status on File) Date Activated Date Inactivated Comments 03/21/2020 5:53 PM 03/25/2020 5:03 PM * Full Code Date Activated Date Inactivated Comments 03/19/2020 6:05 PM 03/21/2020 5:36 PM Care Teams Clinical Documentation Clerk Relationship Specialty Start Date End Date Nan Blair PA PCP - General 05/08/20
--- OUTSIDE RECORDS SUMMARY | 2025-04-08 14:51 | XMS_ITS | Referral Summary ---
Author Organization [facility] Address [address] [place] [address] Care Team Providers Care Wrapper And Preserver Name Role Phone Jorge Jefferson MD Unavailable Lizzie Collins MD Unavailable [phone] Freeman Chung MD Unavailable Maribel Andrade MD Unavailable [phone] Guy Rosen MD Unavailable Nan Blair Primary Care Provider [phone] Encounters Date Type Department Care Team Description 02/24/2025 8:30 AM CDT Office Visit [facility] [address] [place] [address] Kassandra Shannon NP Chronic atrial fibrillation (HCC) (Primary Dx); Mitral valve insufficiency, unspecified etiology; Hospital discharge follow-up 02/03/2025 Orders Only [facility] [address] [place] [address] Kassandra Shannon NP 01/27/2025 1:45 PM CDT Office Visit [address] 6[address] [place] [address] Betsy Ryan NP 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) (Primary Dx) 01/13/2025 Orders Only [facility] Scanning, Provider 01/12/2025 Documentation [facility] [address] [place] [address] Sherly Ivey, QUANTITY SURVEYOR 01/08/2025 Telephone [facility] [address] [place] [address] Harriett Sutherland, RMA from Last 3 Months Allergies Active Allergy Reactions Criticality Noted Date Comments Amoxicillin Unknown 02/02/2019 Codeine Other (See comments),Dizziness,Naus ea And Vomiting,Unknown Low 03/16/2016 Spaced out and sick to stomach Spaced out and sick to stomach confusion, n/v Tonsina Other (See comments),Unknown Low 02/02/2019 Severe reaction-Kidney [...] 11/27/2024 Assessment & Plan (11/27/2024 1:17 PM PROJECT CONSULTANT): Patient had a seizure 1 year ago. [...] 10/12/2020 Assessment & Plan (11/27/2024 10:55 AM PROJECT CONSULTANT): Progressing. Patient will continue Namenda and Aricept. [...] ASL Assessment & Plan (11/15/2021 10:29 AM PROJECT CONSULTANT): Worsening. Patient will continue current meds. Followed [...] not addictive. Agree with move to [facility]. Continue to work with Dr. Paracha, counselor and cognitive stimulation therapist. Assessment & Plan (10/12/2020 11:27 AM PROJECT CONSULTANT): Followed by neurology, unchanged Class 1 obesity due to exces s calories with serious comorbidity and body mass index (BMI) of 31.0 to 31.9 in adult 08/26/2019 Assessment & Plan (05/07/2023 2:29 PM CDT): Reviewed BMI Focus on healthy diet options Work on healthy changes Assessment & Plan (11/15/2021 10:28 AM PROJECT CONSULTANT): Uncontrolled. Goal of BMI is less than [...] month Assessment & Plan (10/12/2020 11:26 AM PROJECT CONSULTANT): Educated patient on healthy diet/exercise plan. Exercise [...] sugar. Assessment & Plan (08/26/2019 1:23 PM PROJECT CONSULTANT): Educated patient on healthy diet/exercise plan. Exercise [...] 05/25/2020 Assessment & Plan (11/15/2021 10:28 AM PROJECT CONSULTANT): PMH/MHA: 11/15/2021 Last pap:2012 Last mammogram: 02/04/2018 (requested report) Last dexa:02/04/2018, ordered Last colonoscopy/cologuard:08/2015, 12/16/2018 repeat 2023 Last Hep C:04/2017 Last tdap:04/08/2013 Last Prevnar/pneumovax: 05/18/2015 (13) 07/18/2011 (23) Last Shingrix: (zoster 10/07/2012) 10/16/2018, 07/03/2018 Last eye exam: 05/25/2020 Assessment & Plan (10/12/2020 11:27 AM PROJECT CONSULTANT): PMH/MHA: 10/12/2020 Last pap:2013 Last mammogram: 02/04/2018 Last dexa:02/04/2018 Last colonoscopy/cologuard:08/2015, 12/16/2018 repeat 2023 Last Hep C:04/2017 Last tdap:04/08/2013 Last Prevnar/pneumovax: 05/18/2015 (13) 07/18/2011 (23) Last Shingrix: (zoster 10/07/2012) 10/16/2018, 07/03/2018 Last eye exam: 05/25/2020 Assessment & Plan (08/26/2019 1:10 PM PROJECT CONSULTANT): PMH/MHA: 08/26/2019 Last pap:2012 Last mammogram: 02/04/2018 Last dexa:02/04/2018 Last colonoscopy/cologuard:08/2015, 12/16/2018 repeat 2023 Last Hep C:04/2017 Last tdap:04/08/2013 Last Prevnar/pneumovax: 05/18/2015 (13) 07/18/2011 (23) Last Shingrix: (zoster 10/07/2012) 10/16/2018, 07/03/2018 Last eye exam: due Recurrent major depressive disorder, in partial remission 10/13/2018 Assessment & Plan (05/07/2023 3:58 PM CDT): Chronic. Continue follow-up psychiatry. Assessment & Plan (11/15/2021 10:29 AM PROJECT CONSULTANT): Stable continue meds Assessment & Plan (10/12/2020 11:28 AM PROJECT CONSULTANT): Stable, followed by Psychiatry Assessment & Plan (05/23/2020 3:09 PM CDT): Strongly recommend consistent care and follow-up with [facility] Psychiatry to evaluate and treat [...] psychiatry Assessment & Plan (10/16/2019 1:12 PM PROJECT CONSULTANT): Uncontrolled. Assessment & Plan (10/14/2019 1:02 PM PROJECT CONSULTANT): Uncontrolled. I really feel like pt is very lonely and she needs daily interaction with other people. Encouraged pt to consider a detention center to open her world to new hobbies, interactions with other. Need referral to psychiatrist. Need to see counselor within the next 2 wks. Memory issues may be related to depression. Assessment & Plan (08/26/2019 1:24 PM PROJECT CONSULTANT): Referral to psychiatrist Generalized anxiety disorder 03/12/2018 Assessment & Plan (05/07/2023 3:57 PM CDT): Chronic. Continue follow-up with psychiatrist. Assessment & Plan (11/15/2021 10:28 AM PROJECT CONSULTANT): Stable, continue current meds Assessment & Plan (10/12/2020 11:26 AM PROJECT CONSULTANT): Stable followed by Psychiatry Assessment & Plan (02/19/2020 3:30 PM CDT): Stable Assessment & Plan (11/18/2019 4:05 PM PROJECT CONSULTANT): Patient will hold lorazepam at this time. She is not having any anxiety Assessment & Plan (10/14/2019 1:03 PM PROJECT CONSULTANT): Referral psychiatrist Assessment & Plan (08/26/2019 1:22 PM PROJECT CONSULTANT): Stable Bipolar 1 disorder, depressed, moderate 11/06/19 18 Assessment & Plan (11/27/2024 1:17 PM PROJECT CONSULTANT): Chronic, stable, patient will continue her medications for Alzheimer's to include Aricept and Namenda. No additional meds needed at this time Assessment & Plan (05/07/2023 3:57 PM CDT): Chronic. Continue follow-up with psychiatrist. Assessment & Plan (11/15/2021 10:27 AM PROJECT CONSULTANT): Stable Assessment & Plan (10/12/2020 11:26 AM PROJECT CONSULTANT): Stable followed by Psychiatry Assessment & Plan (05/02/2020 2:11 PM CDT): Follow with psychiatry Assessment & Plan (02/19/2020 3:30 PM CDT): Patient has not made appointment with a psychiatrist. Patient reports she is feeling stable on her current meds. I encouraged patient to make a Psychiatry appointment Assessment & Plan (11/18/2019 4:05 PM PROJECT CONSULTANT): Uncontrolled. Increase Wellbutrin to 300 mg. Patient needs to see a psychiatrist. Patient given a list of psychiatrist in the area. I spoke with her lela not too long ago about patient needing to see the psychiatrist and also patient needing to consider moving into some type of detention center to have interactions with other people Assessment & Plan (10/16/2019 3:21 PM PROJECT CONSULTANT): Uncontrolled. Pt does not have a psychiatrist [...] consider looking into inpatient psychiatric care at [facility] in [place]. Patient's son will be contacting his brother and they will be deciding what to do in the next day or so. Patient will be monitor closely over the weekend by Pap[facility]. Assessment & Plan (10/14/2019 1:03 PM PROJECT CONSULTANT): Uncontrolled, referral to psychiatrist. Assessment & Plan (08/26/2019 1:22 PM PROJECT CONSULTANT): Depressed, need to see psychiatry for medication adjustment. Essential (primary) hypertension 08/15/2017 Assessment & Plan (11/27/2024 2:03 PM PROJECT CONSULTANT): Episodes of hypotension. We are going to hold amlodipine. We are going to have [facility] check her blood pressure daily and report numbers in 1 week. Assessment & Plan (05/07/2023 3:57 PM CDT): Chronic and controlled without medication. Continue to monitor. Assessment & Plan (11/15/2021 10:28 AM PROJECT CONSULTANT): Stable, continue current meds Assessment & Plan (10/12/2020 11:26 AM PROJECT CONSULTANT): Stable continue meds Assessment & Plan (02/19/2020 3:30 PM CDT): Stable Assessment & Plan (11/18/2019 4:05 PM PROJECT CONSULTANT): Stable continue meds Assessment & Plan (08/26/2019 1:22 PM PROJECT CONSULTANT): Stable, continue current meds Primary osteoarthritis of right knee 08/15/2017 Assessment & Plan (05/07/2023 2:31 PM CDT): Continue Tylenol as needed for pain. Assessment & Plan (11/15/2021 10:29 AM PROJECT CONSULTANT): Patient takes Tylenol for pain. Assessment & Plan (10/12/2020 11:28 AM PROJECT CONSULTANT): Uncontrolled. Patient will hopefully get to start physical therapy soon once her insurance has been reinstated. Patient may also need to see Ortho in the near future Assessment & Plan (08/26/2019 1:24 PM PROJECT CONSULTANT): stable Unsteady gait 11/09/2016 Assessment & Plan (05/07/2023 3:58 PM CDT): Completed physical therapy. No recent falls. Assessment & Plan (11/15/2021 10:29 AM PROJECT CONSULTANT): Recommend physical therapy. Recommend using a cane Assessment & Plan (10/12/2020 11:29 AM PROJECT CONSULTANT): Uncontrolled. Patient is doing okay with her [...] daily. Assessment & Plan (08/26/2019 1:24 PM PROJECT CONSULTANT): Use cane at all times, Recommend PT. Pt will consider that. Assessment & Plan (02/02/2019 11:25 AM CDT): Order physical therapy Glucose intolerance (impaired glucose tolerance) 09/03/2016 Assessment & Plan (05/07/2023 3:57 PM CDT): Diet controlled. Labs ordered today. Assessment & Plan (11/15/2021 10:28 AM PROJECT CONSULTANT): Diet controlled, requested lab results Assessment & Plan (10/12/2020 11:27 AM PROJECT CONSULTANT): Stable, diet controlled Assessment & Plan (02/19/2020 3:30 PM CDT): Diet controlled check labs Assessment & Plan (08/26/2019 1:23 PM PROJECT CONSULTANT): Diet controlled, due for labs Obstructive sleep apnea 08/14/2016 Assessment & Plan (05/07/2023 2:30 PM CDT): Not on CPAP. Assessment & Plan (11/15/2021 10:29 AM PROJECT CONSULTANT): Stable Assessment & Plan (10/12/2020 11:28 AM PROJECT CONSULTANT): Stable, no CPAP machine at this time Assessment & Plan (08/26/2019 1:13 PM PROJECT CONSULTANT): No cpap machine Other allergic rhinitis 08/14/2016 Assessment & Plan (05/07/2023 2:30 PM CDT): Continue current management. Assessment & Plan (11/15/2021 10:29 AM PROJECT CONSULTANT): Stable Assessment & Plan (10/12/2020 11:28 AM PROJECT CONSULTANT): Stable p.r.n. meds Assessment & Plan (08/26/2019 1:23 PM PROJECT CONSULTANT): stable Atrial flutter 02/14/2016 Overview (02/08/2025): Last Assessment & Plan: Stable Last Assessment & Plan: Stable Other specified hypothyroidism 12/30/2015 Assessment & Plan (05/07/2023 2:30 PM CDT): Continue current dose of levothyroxine. Due for TSH. Assessment & Plan (11/15/2021 10:29 AM PROJECT CONSULTANT): Stable, continue meds, requested lab Assessment & Plan (10/12/2020 11:28 AM PROJECT CONSULTANT): Stable continue meds Assessment & Plan (02/19/2020 3:31 PM CDT): Check labs Assessment & Plan (08/26/2019 1:24 PM PROJECT CONSULTANT): Stable, check labs Mixed hyperlipidemia 12/30/2015 Assessment & Plan (05/07/2023 2:30 PM CDT): Diet controlled. Will continue to monitor lipid panel. Assessment & Plan (11/15/2021 10:29 AM PROJECT CONSULTANT): Diet controlled. Requested lab Assessment & Plan (10/12/2020 11:28 AM PROJECT CONSULTANT): Stable, patient is not on meds at this time Assessment & Plan (02/19/2020 3:31 PM CDT): Check labs Assessment & Plan (08/26/2019 1:23 PM PROJECT CONSULTANT): Check labs Vitamin D deficiency 12/30/2015 Assessment & Plan (05/07/2023 2:31 PM CDT): Continue vitamin-D supplement. Assessment & Plan (11/15/2021 10:30 AM PROJECT CONSULTANT): Stable continue vitamin Assessment & Plan (10/12/2020 11:29 AM PROJECT CONSULTANT): Stable continue vitamin Assessment & Plan (02/19/2020 3:31 PM CDT): Check labs Assessment & Plan (08/26/2019 1:25 PM PROJECT CONSULTANT): Continue vit d Resolved Problems Problem Noted Date Diagnosed Date Resolved Date Unspecified mood (affective) disorder ([facility]) 03/21/2020 11/15/2021 Assessment & Plan (10/12/2020 11:29 AM PROJECT CONSULTANT): Stable followed by Psychiatry Assessment & Plan [...] 2 Assessment & Plan (10/12/2020 11:28 AM PROJECT CONSULTANT): Stable continue meds Assessment & Plan (11/18/2019 4:05 PM PROJECT CONSULTANT): With patient's change in urinary symptoms I would like to hold the VESIcare and see how she does. UA in office today was negative Assessment & Plan (08/26/2019 1:24 PM PROJECT CONSULTANT): Stable, continue meds Mild neurocognitive disorder 12/20/2017 [...] 2019 Assessment & Plan (10/14/2019 1:03 PM PROJECT CONSULTANT): Referral to memory clinic at [facility]. Scores show mild decline. Assessment & Plan (08/26/2019 1:23 PM PROJECT CONSULTANT): Need to rtc for memory testing. 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 08/26/2019 Leucocytosis 03/26/2017 08/26/2019 MARTIN (dyspnea on exertion) 12/11/2016 History of IBS 09/03/2016 08/26/2019 History of radiofrequency ab lation procedure for cardiac arrhythmia 09/03/2016 08/26/2019 Vulvar dystrophy 09/03/2016 10/12/2020 Assessment & Plan (08/26/2019 1:25 PM PROJECT CONSULTANT): Stable History of rhabdomyolysis 08/14/2016 Atrial flutter (CMS/HCC) 02/14/201606/2022 Assessment & Plan (10/12/2020 11:26 AM PROJECT CONSULTANT): Stable Assessment & Plan (02/19/2020 3:30 PM CDT): Stable Assessment & Plan (08/26/2019 1:22 PM PROJECT CONSULTANT): Stable followed by cardiology Immunizations Immunization Administration [...] on file Legal Sex Female 1:09 AM PROJECT CONSULTANT Gender Identity Female 10/05/2020 10:15 AM PROJECT CONSULTANT Sexual Orientation Straight 10/05/2020 10 :15 AM PROJECT CONSULTANT 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 Not on file Not on file Last Filed Vital Signs Vital Sign Reading Time Taken Comments Blood Pressure 116/78 02/24/2025 8:31 AM CDT Pulse 73 02/24/2025 8:31 AM CDT Temperature 36.8 C (98.3 F) 01/27/2025 1:38 PM CDT Respiratory Rate 16 11/27/2024 10:05 AM PROJECT CONSULTANT Oxygen Saturation 95% 02/24/2025 8:31 AM CDT [...] Other us Provider Scanning Final Result * Dexa Axial Skeleton Bone Density 1 or 2 Site (05/07/2022 12:52 PM CDT) Anatomical Region Laterality Modality Body N/A Mammography 05/07/2022 1:53 PM CDT Narrative 05/07/2022 1:54 PM CDT EXAM DESCRIPTION: DEXA AXIAL SKELETON BONE DENSITY 1 OR MORE SITES REASON FOR STUDY: 71 y/o year old F with given history of screening. 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 TB: TB Report ID: [id number] Reading Location: [place] [address] Procedure Note MoonLanette MD - 05/07/2022 EXAM DESCRIPTION: DEXA AXIAL SKELETON BONE DENSITY 1 OR MORE SITES REASON FOR STUDY: 71 y/o year old F with given history ofscreening. 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 TB: TB Report ID: [id number] Reading Location: [place] [address] Nan RILEY IMG DXA PROCEDURES Final Resul t * COLONOSCOPY (12/16/2018) [facility] Colonoscopy Abnormal Result [facility] Provider [place] [facility] Final Result * MAMMOGRAPHY (02/04/2018) [facility] Mammogram Normal Result [facility] Provider [facility] Final Result * Hepatitis C antibody (04/24/2017 11:05 AM CDT) [facility] Hep C Ab NONREACT NONREACTIVE 04/24/2017 8:34 PM CDT [facility] HISTORICAL RESULTS Comment: Siemens CentaurXP using NIKUNJ [...] 5 AM CDT 04/24/2017 3:39 PM CDT Result [facility] Nan RILEY LAB MICROBIOLOGY - GENERAL ORD ERABLES Final Result [facility] HISTORICAL RESULTS from Last 3 Months or Most Recently Relevant to Health Maintenance Insurance [facility] MEDICARE ADVANTAGE [facility] MEDICARE ADVANTAGE [facility] MEDICARE ADVANTAGE Advance Directives For more information, please contact: [phone] Documents on File Type Date Recorded 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 Starch 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 Expl anation ADVANCE DIRECTIVE 12/07/2020 3:24 PM DNR ADVANCE DIRECTIVE 09/25/2013 12:00 AM [facility] OF INSPECTOR [employer] FIN[employer]CIAL/MEDICAL Care Teams Wrapper And Preserver Relationship Specialty Start Date End Date Nan Blair PA [address] [place] [address] PCP - General Family Medicine 07/03/22 Jorge Jefferson MD [address] [place] [address] Consulting Physician Family Medicine 03/09/19 Lizzie Collins MD [address] [address] Gps Field Data Collector Cardiology 05/18/19 Freeman Chung MD [address] [place] [address] Referring Physician Geriatric Psychiatry 06/09/20 Maribel Andrade MD [address] [address] Consulting Physician Anesthesiology 12/31/20 [place] [address] [place] [id number] Psychiatry 01/11/22
--- NOTE | 2025-04-08 15:31 | PC.NURSE ---
Pt also complains of L ankle pain.
[2025-04-08 19:40] VITALS: BP 174/133; PULSE 133; RESP 17; O2SAT 95
--- NOTE | 2025-04-08 19:49 | ED_ITS ---
HPI - Fall General Chief Complaint: Fall Stated Complaint: glf Time Seen by Provider: 04/08/25 19:42 Source: EMS Mode of arrival: ambulatory Limitations: no limitations History of Present Illness HPI Narrative: 74 YEARS OLD WHITE FEMALE, ASSISTING LIVING, HISTORY OF ALZHEIMER'S, WAS TRYING TO WAS SOME DISHES, POST HER BALANCE AND FELL. POSSIBLE HEAD INJURY, PATIENT DENIES ANY COMPLAIN. PATIENT DENIES ANY FEVER, CHILLS, NAUSEA, VOMITING, CHEST PAIN, SHORTNESS OF BREATH OR BACK PAIN OR HEADACHE OR NECK PAIN. PATIENT CURRENTLY ON ELIQUIS FOR ATRIAL FIBRILLATION Related Data Home Medications ?Medication ?Instructions ?Recorded ?Confirmed ?Last Taken ?Type aspirin 81 mg chewable tablet 81 mg PO DAILY 05/03/24 01/29/25 01/28/25 History cyanocobalamin (vitamin B-12) 500 500 mcg PO DAILY 05/03/24 01/29/25 01/28/25 History mcg tablet donepezil 10 mg tablet 10 mg PO DAILY 05/03/24 01/29/25 01/28/25 History levothyroxine 88 mcg tablet 88 mcg PO DAILY 05/03/24 01/29/25 01/28/25 History albuterol 90 mcg/actuation aerosol 180 mcg inhalation Q4H PRN wheezing 01/29/25 01/29/25 Unknown History inhaler cholecalciferol (vitamin D3) 25 25 mcg PO DAILY 01/29/25 01/29/25 01/28/25 History mcg (1,000 unit) tablet lamotrigine 25 mg tablet 25 mg PO Q12H 01/29/25 01/29/25 01/28/25 History melatonin 10 mg capsule 5 mg PO DAILY 01/29/25 01/29/25 01/27/25 History naltrexone 50 mg tablet 50 mg PO Q24H 01/29/25 01/29/25 01/28/25 History Allergies Allergy/AdvReac Type Severity Reaction Status Date / Time amoxicillin Allergy Unknown Verified 02/25/25 15:42 codeine Allergy Dizziness Verified 02/25/25 15:42 lithium Allergy kidney Verified 02/25/25 15:42 failure morphine Allergy Vomiting Verified 02/25/25 15:42 olanzapine Allergy Confusion Verified 02/25/25 15:42 Penicillins Allergy Hives Verified 02/25/25 15:42 sulfamethoxazole (From Allergy Unknown Verified 02/25/25 15:42 Bactrim) trimethoprim (From Bactrim) Allergy Unknown Verified 02/25/25 15:42 Review of Systems Review of Systems: All systems reviewed & are unremarkable except as noted in HPI and below PMFSH Past Medical History Medical History Dementia of the Alzheimer's type Accidental fall Family History Family History Mother Hypertension Alzheimer dementia Sibling Hypertension Social History Social History Smoking status: Never smoker Alcohol intake: current Drinks per week: 1 Substance use: never Substance use type: does not use Do You Feel Safe in your Home?: Yes Lack of Transportation: No Lack of Food: Never True Current Housing: I Have Housing Concerned About Future Housing: No Difficulty Paying Gas/Electric Bills: No Difficulty Paying for Meds: No Currently Unemployed: No Education: Bachelor's Degree Difficulty w/ Childcare or Family Care: No Spiritual care concerns: No Exam Narrative: GENERAL APPEARANCE: WELL-DEVELOPED, WELL-NOURISHED SKIN: NORMAL COLOR HEAD: NORMOCEPHALIC, NONTRAUMATIC EYES: CLEAR CONJUNCTIVA ENT: OROPHARYNX NORMAL, EARS NORMAL, NOSE NORMAL NECK: SUPPLE, NONTENDER CHEST AND RESPIRATORY: AIRWAY PATENT, NO RESPIRATORY DISTRESS, NO ACCESSORY MUSCLE USE HEART: IRREGULAR IRREGULARITY, TACHYCARDIA ABDOMEN: SOFT, NONTENDER, NO ORGANOMEGALY, QUIET BOWEL SOUNDS VASCULAR: NORMAL PERIPHERAL PULSES, NORMAL CAPILLARY REFILL. MUSCULOSKELETAL: NORMAL RANGE OF MOTION, NONTENDER BACK NEUROLOGIC: ALERT AND ORIENTED ?3, SAUSAGE CANNER IS NORMAL TESTED, NO GROSS MOTOR DEFICIT Course Vital Signs Vital signs: Vital Signs Temperature 36.9 C 04/08/25 14:50 Pulse Rate 53 L 04/08/25 14:50 Respiratory Rate 20 04/08/25 14:50 Blood Pressure 126/84 04/08/25 14:50 Pulse Oximetry 96 04/08/25 14:50 Oxygen Delivery Room Air 04/08/25 14:50 Temperature 36.9 C 04/08/25 14:50 Pulse Rate 133 H 04/08/25 19:40 Respiratory Rate 17 04/08/25 19:40 Blood Pressure 174/133 H 04/08/25 19:40 Pulse Oximetry 95 04/08/25 19:40 Oxygen Delivery Room Air 04/08/25 14:50 MDM - Fall MDM Narrative Medical decision making narrative: PATIENT HAD A FALL AT HOME, NO COMPLAINT VITAL SIGNS SHOWING BLOOD PRESSURE 126/84, HEART RATE 53 OTHERWISE WITHIN NORMAL LIMIT PHYSICAL EXAMINATION IS UNREMARKABLE DIFFERENTIAL DIAGNOSIS INTRACRANIAL BLEED, FRACTURE LEFT ANKLE X-RAY SHOWED NO ACUTE OSSEOUS ABNORMALITY CT HEAD AND CERVICAL SPINE SHOWED NO ACUTE ABNORMALITY. AT THE TIME OF DISCHARGE PATIENT BLOOD PRESSURE IS 174/133, HEART RATE AFIB WITH RVR 105 UP TO 125. PATIENT PROBABLY MORE STRESSED AFTER BEEN IN OUR EMERGENCY ROOM FOR A WHILE WHICH PROBABLY THE UNDERLYING CAUSE OF INCREASED BLOOD PRESSURE AND TACHYCARDIA. PATIENT STILL ASYMPTOMATIC. PATIENT RECEIVED 0.5 MG OF ATIVAN P.O., 20 MG OF LABETALOL IV WITH REMARKABLE IMPROVEMENT. HEART RATE LESS THAN 100, ATRIAL FIBRILLATION, BLOOD PRESSURE 139 OVER 90 DISCHARGE THE PT WAS DISCHARGED TO HOME.THE PT,S CONDITION UPON DISCHARGE WAS FAIR,EDUCATION WAS PROVIDED TO THE PT IN REFERENCE TO THE FINAL IMPRESSION,DISCHARGE STUDY RESULTS,TREATMENT,PROGNOSIS AND NEED FOR FOLLOW UP . Differential Diagnosis Differential diagnosis: Likely other ( ABOVE) Imaging Data Radiologist's impression: Impressions Head CT 04/08/25 15:28 IMPRESSION: No acute intracranial findings. Cervical Spine CT 04/08/25 15:37 Impression: Significant degenerative disease, without acute fracture. Ankle X-Ray 04/08/25 15:58 IMPRESSION: No definite acute osseous abnormality left ankle. Possible lucency in the distal fibula is marked excluded. Severe osteoarthritic changes of the ankle joint. Critical Care Time Critical Care Time Critical Care Time: No Discharge Plan Discharge Clinical Impression: Closed head injury, Fall Patient Disposition: Home Condition: Stable Instructions: Concussion (ED), Head Injury (ED) Additional Instructions: RETURN IF SYMPTOMS ARE WORSENING , CALL YOUR FAMILY PHYSICIAN FOR APPOINTMENT, TAKE TYLENOL NEEDED FOR ACHES AND PAIN, CONTINUE HOME MEDICATIONS. Patient Language: Azerbaijani Prescriptions: No Action donepezil 10 mg tablet 10 mg PO DAILY levothyroxine 88 mcg tablet 88 mcg PO DAILY cyanocobalamin (vitamin B-12) 500 mcg tablet 500 mcg PO DAILY aspirin 81 mg tablet,chewable 81 mg PO DAILY melatonin 10 mg capsule 5 mg PO DAILY cholecalciferol (vitamin D3) 25 mcg (1,000 unit) tablet 25 mcg PO DAILY naltrexone 50 mg tablet 50 mg PO Q24H lamotrigine 25 mg tablet 25 mg PO Q12H Patient Comments: Patient not sure on frequency. See pharmacy instructions albuterol 90 mcg/actuation aerosol 180 mcg inhalation Q4H PRN (Reason: wheezing) Rx Instructions: 2 puffs q4h as needed for wheezing. Eliquis 5 mg Tablet 5 mg PO Q12HR Qty: 60 1RF memantine 10 mg tablet 10 mg PO QHS Qty: 30 1RF diltiazem HCl [Cardizem LA] 240 mg tablet extended release 24 hr 240 mg PO QAM Qty: 30 1RF Follow-up/Referrals: Johnnie,ROSEMARY Killian [Primary Care Provider] -
--- OUTSIDE RECORDS SUMMARY | 2025-04-08 19:50 | XMS_ITS | Clinical Summary ---
Author Organization [facility] Address [address] [place] [address] Care Team Providers Care Human Capital Analyst Name Role Phone Nan Blair Primary Care Provider [phone] Allergies Active Allergy Reactions Criticality Noted Date Comments Codeine Nausea and Vomiting,Other (see comment) Low 03/16/2016 Spaced out and sick to stomach [place] Other (see comment) Low 02/02/2019 Severe reaction-Kidney [...] October 2019 Bipolar 1 disorder, depressed, moderate ([facility]) 11/06/2017 Overview (03/17/2020): Last Assessment & Plan: Patient has not made appointment with a psychiatrist. Patient reports she is feeling stable on her current meds. I encouraged patient to make a Psychiatry appointment Bipolar 1 disorder, depressed, moderate ([facility]) 10/30/2017 Mild cognitive impairment with memory [...] Last Assessment & Plan: stable Atrial flutter ([facility]) 02/14/2016 Overview (03/17/2020): Last Assessment & [...] to complete this topic Insurance MED REPLACE [facility] MEDICARE MED REPLACE [facility] MEDICARE Advance Directives Documents on File Type Date Recorded Patient Manager Ship Expl anation Advance Directives and Living Will 11/05/2017 9:06 AM POWER OF CRYSTAL LAPPER Advance Directives and Living Will 08/17/2013 ADVANCE DIRECTIVE * DNR (Latest Code Status on File) Date Activated Date Inactivated Comments 03/17/2020 9:43 AM 03/18/2020 1:18 PM * Full Code Date Activated Date Inactivated Comments 10/29/2017 4:12 PM 11/04/2017 4:02 PM Care Teams Human Capital Analyst Relationship Specialty Start Date End Date Nan Blair PA [address] [place] [address] PCP - General 04/04/14
--- OUTSIDE RECORDS SUMMARY | 2025-04-08 19:50 | XMS_ITS | Encounter Summary ---
Author Organization [facility] Address [address] [facility] [address] [place] [address] Phone Care Team Providers Care Rating Examiner Name Role Phone Nan Blair Primary Care Provider [phone] Jorge Jefferson MD Unavailable + [phone] Lizzie Collins MD Unavailable [phone] Freeman Chung MD Unavailable [phone] Maribel Andrade MD Unavailable [phone] Guy Rosen MD Unavailable Miscellaneous, Not In File Primary Care Provider Unavailable Nan Blair Primary Care Provider [phone] Encounter Details Date Type Department Care Team [...] on file Legal Sex Female 1:09 AM PERSONAL CAREGIVER Gender Identity Female 10/05/2020 10:15 AM PERSONAL CAREGIVER Sexual Orientation Straight 10/05/2020 10 :15 AM PERSONAL CAREGIVER Occupation Industry Job Start Date Job End [...] on filedocumented in this encounter Care Teams Rating Examiner Relationship Specialty Start Date End Date Nan Blair PA [address] [place] [address] PCP - General Physician Deck And Hull Assembler 03/09/19 05/03/22 Miscellaneous, Not In File PCP - General 05/04/22 07/02/22 Nan Blair PA [address] [place] [address] PCP - General Family Medicine 07/03/22 Jorge Jefferson MD [address] [place] [address] Consulting Physician Family Medicine 03/09/19 Lizzie Collins MD [address] [facility] [place] [id number] Construction Project Assistant Cardiology 05/18/19 Freeman Chung MD [address] [place] [address] Referring Physician Geriatric Psychiatry 06/09/20 Maribel Andrade MD [address] [address] Consulting Physician Anesthesiology 12/31/20 Guy Rosen MD [address] [place] [address] Psychiatry 01/11/22 documented as of this encounter
--- OUTSIDE RECORDS SUMMARY | 2025-04-08 19:50 | XMS_ITS | Encounter Summary ---
Author Organization [facility] Facility Care Team Providers Care Inpatient Auditor Name Role Phone Nan Blair Primary Care Provider [phone] Jorge Jefferson MD Primary Care Provid er Nan Blair Unavailable [phone] Nan Blair Primary Care Provider [phone] Jorge Jefferson MD Unavailable + [phone] Lizzie Collins MD Unavailable [phone] Freeman Chung MD Unavailable [phone] Maribel Andrade MD Unavailable [phone] uGy Rosen MD Unavailable Miscellaneous, Not In File Primary Care Provider Unavailable Nan Blair Primary Care Provider [phone] Encounter Details Date Type Department Care Team (Latest Contact Info) Description 08/15/2017 Orders Only [facility]IN[facility] ProviderJulieta MD [address] [place] [address] Social History Tobacco Use Types Packs/Day Years Used Date Smoking Tobacco: Never Assessed Comments Unknown Sex and Gender Information Value Date Recorded Sex Assigned at Not on file Legal Sex Female 1:09 AM COUNTY HOME DEMONSTRATOR Gender Identity Female 10/05/2020 10:15 AM COUNTY HOME DEMONSTRATOR Sexual Orientation Straight 10/05/2020 10 :15 AM COUNTY HOME DEMONSTRATOR documented as of this encounter Plan of Treatment Not on file documented as of this encounter Procedures Procedure Name Priority Date/Time Associated Diagnosis Comments CARDIOLOGY REPORT 08/15/2017 12: 00 AM COUNTY HOME DEMONSTRATOR documented in this encounter Results * CARDIOLOGY REPORT (08/15/2017 12:00 AM COUNTY HOME DEMONSTRATOR) Anatomical Region Laterality Modality Other Narrative 08/15/2017 12:00 AM COUNTY HOME DEMONSTRATOR Ordered by an unspecified provider. us Historical Provider [facility] Final Result documented in this encounter Visit Diagnoses Not on filedocumented in this encounter Care Teams Inpatient Auditor Relationship Specialty Start Date End Date Nan Blair PA [address] [place] [address] PCP - General Physician Data Entry Technician 04/28/18 02/01/19 Jorge Jefferson MD [address] [place] [address] PCP - General Family Medicine 02/02/19 03/08/19 Nan Blair PA [address] [place] [address] PCP - General Physician Data Entry Technician 03/09/19 05/03/22 Miscellaneous, Not In File PCP - General 05/04/22 07/02/22 Nan Blair PA [address] [place] [address] PCP - General Family Medicine 07/03/22 Nan Blair PA [address] [place] [address] Physician Data Entry Technician Physician Data Entry Technician 02/02/19 9 Jorge Jefferson MD [address] [place] [address] Consulting Physician Family Medicine 03/09/19 Lizzie Collins MD [address] [address] Contracting Support Specialist Cardiology 05/18/19 Freeman Chung MD [address] [place] [address] Referring Physician Geriatric Psychiatry 06/09/20 Maribel Andrade MD [facility] [address] [address] Consulting Physician Anesthesiology 12/31/20 Guy Rosen MD [address] [place] [address] Psychiatry 01/11/22 documented as of this encounter
--- OUTSIDE RECORDS SUMMARY | 2025-04-08 19:50 | XMS_ITS | Encounter Summary ---
Author Organization [facility] Facility Care Team Providers Care Fraud Investigator Name Role Phone Nan Blair Primary Care Provider [phone] Jorge Jefferson MD Primary Care Provid er Nna Blair Unavailable [phone] Nan Blair Primary Care Provider [phone] Jorge Jefferson MD Unavailable + [phone] Lizzie Collins MD Unavailable [phone] Freeman Chung MD Unavailable [phone] Maribel Andrade MD Unavailable [phone] Guy Rosen MD Unavailable Miscellaneous, Not In File Primary Care Provider Unavailable Nan Blair Primary Care Provider [phone] Encounter Details Date Type Department Care Team (Latest Contact Info) Description 11/01/2017 Orders Only [facility]INCON[facility] ProviderJulieta MD [address] [place] [address] Social History Tobacco Use Types Packs/Day Years Used Date Smoking Tobacco: Never Assessed Comments Unknown Sex and Gender Information Value Date Recorded Sex Assigned at Not on file Legal Sex Female 1:09 AM EXECUTIVE LEGAL SECRETARY Gender Identity Female 10/05/2020 10:15 AM EXECUTIVE LEGAL SECRETARY Sexual Orientation Straight 10/05/2020 10 :15 AM EXECUTIVE LEGAL SECRETARY documented as of this encounter Plan of Treatment Not on file documented as of this encounter Procedures Procedure Name Priority Date/Time Associated Diagnosis Comments CARDIOLOGY REPORT 11/01/2017 12: 00 AM EXECUTIVE LEGAL SECRETARY documented in this encounter Results * CARDIOLOGY REPORT (11/01/2017 12:00 AM EXECUTIVE LEGAL SECRETARY) Anatomical Region Laterality Modality Other Narrative 11/01/2017 12:00 AM EXECUTIVE LEGAL SECRETARY Ordered by an unspecified provider. us Historical Provider [facility] Final Result documented in this encounter Visit Diagnoses Not on filedocumented in this encounter Care Teams Fraud Investigator Relationship Specialty Start Date End Date Nan Blair PA [address] [place] [address] PCP - General Physician Head Of Business Development 04/28/18 02/01/19 Jorge Jefferson MD [address] [place] [address] PCP - General Family Medicine 02/02/19 03/08/19 Nan Blair PA [address] [place] [address] PCP - General Physician Head Of Business Development 03/09/19 05/03/22 Miscellaneous, Not In File PCP - General 05/04/22 07/02/22 Nan Blair PA [address] [place] [address] PCP - General Family Medicine 07/03/22 Nan Blair PA [address] [place] [address] Physician Head Of Business Development Physician Head Of Business Development 02/02/19 9 Jorge Jefferson MD [address] [place] [address] Consulting Physician Family Medicine 03/09/19 Lizzie Collins MD [address] [address] Ticket Sales Agent Cardiology 05/18/19 Freeman Chung MD [address] [place] [address] Referring Physician Geriatric Psychiatry 06/09/20 Maribel Andrade MD [facility] [address] [address] Consulting Physician Anesthesiology 12/31/20 Guy Rosen MD [address] [place] [address] Psychiatry 01/11/22 documented as of this encounter
--- OUTSIDE RECORDS SUMMARY | 2025-04-08 19:50 | XMS_ITS | Encounter Summary ---
Author Organization [facility] Address [address] [facility] [address] [place] [address] Phone Care Team Providers Care Program Therapist Name Role Phone Nan Blair Primary Care Provider [phone] Jorge Jefferson MD Unavailable + [phone] Lizzie Collins MD Unavailable [phone] Freeman Chung MD Unavailable [phone] Maribel Andrade MD Unavailable [phone] Guy Rosen MD Unavailable Miscellaneous, Not In File Primary Care Provider Unavailable Nan Blair Primary Care Provider [phone] Encounter Details Date Type Department Care Team [...] on file Legal Sex Female 1:09 AM LINE INSTALLATION SUPERVISOR Gender Identity Female 10/05/2020 10:15 AM LINE INSTALLATION SUPERVISOR Sexual Orientation Straight 10/05/2020 10 :15 AM LINE INSTALLATION SUPERVISOR Occupation Industry Job Start Date Job [...] on filedocumented in this encounter Care Teams Program Therapist Relationship Specialty Start Date End Date Nan Blair PA [address] [place] [address] PCP - General Physician Natural Gas Field Processing Supervisor 03/09/19 05/03/22 Miscellaneous, Not In File PCP - General 05/04/22 07/02/22 Nan Blair PA [address] [place] [address] PCP - General Family Medicine 07/03/22 Jorge Jefferson MD [address] [place] [address] Consulting Physician Family Medicine 03/09/19 Lizzie Collins MD [address] [facility] [place] [address] Coding Specialist Cardiology 05/18/19 Freeman Chung MD [address] [place] [address] Referring Physician Geriatric Psychiatry 06/09/20 Maribel Andrade MD [address] [facility] [address] [place] [address] Consulting Physician Anesthesiology 12/31/20 Guy Rosen MD [address] [place] [address] Psychiatry 01/11/22 documented as of this encounter
--- OUTSIDE RECORDS SUMMARY | 2025-04-08 19:50 | XMS_ITS | Encounter Summary ---
Author Organization [facility] Address [address] [facility] [address] [place] [address] Phone Care Team Providers Care Chinese Instructor Name Role Phone Nan Blair Primary Care Provider [phone] Jorge Jefferson MD Primary Care Provid er Nan Blair Unavailable [phone] Nan Blair Primary Care Provider [phone] Jorge Jefferson MD Unavailable + [phone] Lizzie Collins MD Unavailable [phone] Freeman Chung MD Unavailable [phone] Maribel Andrade MD Unavailable [phone] Guy Rosen MD Unavailable Miscellaneous, Not In File Primary Care Provider Unavailable Nan Blair Primary Care Provider [phone] Encounter Details Date Type Department Care Team (Latest Contact Info) Description 11/01/2017 Orders Only [facility] [place] Scanning, Provider Social History Tobacco Use Types Packs/Day Years Used Date Smoking Tobacco: Never Assessed Comments Unknown Sex and Gender Information Value Date Recorded Sex Assigned at Not on file Legal Sex Female 1:09 AM WAREHOUSE UNLOADER Gender Identity Female 10/05/2020 10:15 AM WAREHOUSE UNLOADER Sexual Orientation Straight 10/05/2020 10 :15 AM WAREHOUSE UNLOADER documented as of this encounter Plan of Treatment Not on file documented as of this encounter Procedures Procedure Name Priority Date/Time Associated Diagnosis Comments SCAN - RADIOLOGY/IMAGING 11/01/2017 documented in this encounter Results * SCAN - RADIOLOGY/IMAGING (11/01/2017) Anatomical Region Laterality Modality Other us Provider Scanning Final Result documented in this encounter Visit Diagnoses Not on filedocumented in this encounter Care Teams Chinese Instructor Relationship Specialty Start Date End Date Nan Blair PA [address] [place] [address] PCP - General Physician Optimization Consultant 04/28/18 02/01/19 Jorge Jefferson MD [address] [place] [address] PCP - General Family Medicine 02/02/19 03/08/19 Nan Blair PA [address] [place] [address] PCP - General Physician Optimization Consultant 03/09/19 05/03/22 Miscellaneous, Not In File PCP - General 05/04/22 07/02/22 Nan Blair PA [address] [place] [address] PCP - General Family Medicine 07/03/22 Nan Blair PA [address] [place] [address] Physician Optimization Consultant Physician Optimization Consultant 02/02/19 9 Jorge Jefferson MD [address] [place] [address] Consulting Physician Family Medicine 03/09/19 Lizzie Collins MD [address] [address] Administrative Sales Assistant Cardiology 05/18/19 Freeman Chung MD [address] [place] [address] Referring Physician Geriatric Psychiatry 06/09/20 Maribel Andrade MD [address] [facility] [address] [address] Consulting Physician Anesthesiology 12/31/20 Guy Rosen MD [address] [place] [address] Psychiatry 01/11/22 documented as of this encounter
--- OUTSIDE RECORDS SUMMARY | 2025-04-08 19:50 | XMS_ITS | Clinical Summary ---
Author Organization [facility] Address [address] [place] [address] Care Team Providers Care Data Lead Name Role Phone Jorge Jefferson MD Unavailable [phone] Lizzie Collins MD Unavailable [phone] Freeman Chung MD Unavailable [phone] Maribel Andrade MD Unavailable [phone] Guy Rosen MD Unavailable Nan Blair Primary Care Provider [phone] Allergies Active Allergy Reactions Criticality Noted Date Comments Amoxicillin Unknown 02/02/2019 Codeine Other (See comments),Dizziness,Naus ea And Vomiting,Unknown Low 03/16/2016 Spaced out and sick to stomach Spaced out and sick to stomach confusion, n/v [place] Other (See comments),Unknown Low 02/02/2019 Severe reaction-Kidney [...] 11/27/2024 Assessment & Plan (11/27/2024 1:17 PM HUMAN RESOURCES SERVICES SPECIALIST): Patient had a seizure 1 year ago. [...] 10/12/2020 Assessment & Plan (11/27/2024 10:55 AM HUMAN RESOURCES SERVICES SPECIALIST): Progressing. Patient will continue Namenda and Aricept. [...] ASL Assessment & Plan (11/15/2021 10:29 AM HUMAN RESOURCES SERVICES SPECIALIST): Worsening. Patient will continue current meds. Followed [...] is not addictive. Agree with move to [facility]. Continue to work with Dr. Andrade, counselor and cognitive stimulation therapist. Assessment & Plan (10/12/2020 11:27 AM HUMAN RESOURCES SERVICES SPECIALIST): Followed by neurology, unchanged Class 1 obesity due to exces s calories with serious comorbidity and body mass index (BMI) of 31.0 to 31.9 in adult 08/26/2019 Assessment & Plan (05/07/2023 2:29 PM CDT): Reviewed BMI Focus on healthy diet options Work on healthy changes Assessment & Plan (11/15/2021 10:28 AM HUMAN RESOURCES SERVICES SPECIALIST): Uncontrolled. Goal of BMI is less than [...] month Assessment & Plan (10/12/2020 11:26 AM HUMAN RESOURCES SERVICES SPECIALIST): Educated patient on healthy diet/exercise plan. Exercise [...] sugar. Assessment & Plan (08/26/2019 1:23 PM HUMAN RESOURCES SERVICES SPECIALIST): Educated patient on healthy diet/exercise plan. Exercise [...] 05/25/2020 Assessment & Plan (11/15/2021 10:28 AM HUMAN RESOURCES SERVICES SPECIALIST): PMH/MHA: 11/15/2021 Last pap:2013 Last mammogram: 02/04/2018 (requested report) Last dexa:02/04/2018, ordered Last colonoscopy/cologuard:08/2015, 12/16/2018 repeat 2023 Last Hep C:04/2017 Last tdap:04/08/2013 Last Prevnar/pneumovax: 05/18/2015 (13) 07/18/2011 (23) Last Shingrix: (zoster 10/07/2012) 10/16/2018, 07/03/2018 Last eye exam: 05/25/2020 Assessment & Plan (10/12/2020 11:27 AM HUMAN RESOURCES SERVICES SPECIALIST): PMH/MHA: 10/12/2020 Last pap:2013 Last mammogram: 02/04/2018 Last dexa:02/04/2018 Last colonoscopy/cologuard:08/2015, 12/16/2018 repeat 2023 Last Hep C:04/2017 Last tdap:04/08/2013 Last Prevnar/pneumovax: 05/18/2015 (13) 07/18/2011 (23) Last Shingrix: (zoster 10/07/2012) 10/16/2018, 07/03/2018 Last eye exam: 05/25/2020 Assessment & Plan (08/26/2019 1:10 PM HUMAN RESOURCES SERVICES SPECIALIST): PMH/MHA: 08/26/2019 Last pap:2013 Last mammogram: 02/04/2018 Last dexa:02/04/2018 Last colonoscopy/cologuard:08/2015, 12/16/2018 repeat 2023 Last Hep C:04/2017 Last tdap:04/08/2013 Last Prevnar/pneumovax: 05/18/2015 (13) 07/18/2011 (23) Last Shingrix: (zoster 10/07/2012) 10/16/2018, 07/03/2018 Last eye exam: due Recurrent major depressive disorder, in partial remission 10/13/2018 Assessment & Plan (05/07/2023 3:58 PM CDT): Chronic. Continue follow-up psychiatry. Assessment & Plan (11/15/2021 10:29 AM HUMAN RESOURCES SERVICES SPECIALIST): Stable continue meds Assessment & Plan (10/12/2020 11:28 AM HUMAN RESOURCES SERVICES SPECIALIST): Stable, followed by Psychiatry Assessment & Plan [...] psychiatry Assessment & Plan (10/16/2019 1:12 PM HUMAN RESOURCES SERVICES SPECIALIST): Uncontrolled. Assessment & Plan (10/14/2019 1:02 PM HUMAN RESOURCES SERVICES SPECIALIST): Uncontrolled. I really feel like pt is very lonely and she needs daily interaction with other people. Encouraged pt to consider a intermediate center to open her world to new hobbies, interactions with other. Need referral to psychiatrist. Need to see counselor within the next 2 wks. Memory issues may be related to depression. Assessment & Plan (08/26/2019 1:24 PM HUMAN RESOURCES SERVICES SPECIALIST): Referral to psychiatrist Generalized anxiety disorder 03/12/2018 Assessment & Plan (05/07/2023 3:57 PM CDT): Chronic. Continue follow-up with psychiatrist. Assessment & Plan (11/15/2021 10:28 AM HUMAN RESOURCES SERVICES SPECIALIST): Stable, continue current meds Assessment & Plan (10/12/2020 11:26 AM HUMAN RESOURCES SERVICES SPECIALIST): Stable followed by Psychiatry Assessment & Plan (02/19/2020 3:30 PM CDT): Stable Assessment & Plan (11/18/2019 4:05 PM HUMAN RESOURCES SERVICES SPECIALIST): Patient will hold lorazepam at this time. She is not having any anxiety Assessment & Plan (10/14/2019 1:03 PM HUMAN RESOURCES SERVICES SPECIALIST): Referral psychiatrist Assessment & Plan (08/26/2019 1:22 PM HUMAN RESOURCES SERVICES SPECIALIST): Stable Bipolar 1 disorder, depressed, moderate 11/06/19 18 Assessment & Plan (11/27/2024 1:17 PM HUMAN RESOURCES SERVICES SPECIALIST): Chronic, stable, patient will continue her medications for Alzheimer's to include Aricept and Namenda. No additional meds needed at this time Assessment & Plan (05/07/2023 3:57 PM CDT): Chronic. Continue follow-up with psychiatrist. Assessment & Plan (11/15/2021 10:27 AM HUMAN RESOURCES SERVICES SPECIALIST): Stable Assessment & Plan (10/12/2020 11:26 AM HUMAN RESOURCES SERVICES SPECIALIST): Stable followed by Psychiatry Assessment & Plan (05/02/2020 2:11 PM CDT): Follow with psychiatry Assessment & Plan (02/19/2020 3:30 PM CDT): Patient has not made appointment with a psychiatrist. Patient reports she is feeling stable on her current meds. I encouraged patient to make a Psychiatry appointment Assessment & Plan (11/18/2019 4:05 PM HUMAN RESOURCES SERVICES SPECIALIST): Uncontrolled. Increase Wellbutrin to 300 mg. Patient needs to see a psychiatrist. Patient given a list of psychiatrist in the area. I spoke with her jaspreeton not too long ago about patient needing to see the psychiatrist and also patient needing to consider moving into some type of intermediate center to have interactions with other people Assessment & Plan (10/16/2019 3:21 PM HUMAN RESOURCES SERVICES SPECIALIST): Uncontrolled. Pt does not have a psychiatrist [...] looking into inpatient psychiatric care at [facility] in [place]. Patient's son will be contacting his brother and they will be deciding what to do in the next day or so. Patient will be monitor closely over the weekend by Papo. Assessment & Plan (10/14/2019 1:03 PM HUMAN RESOURCES SERVICES SPECIALIST): Uncontrolled, referral to psychiatrist. Assessment & Plan (08/26/2019 1:22 PM HUMAN RESOURCES SERVICES SPECIALIST): Depressed, need to see psychiatry for medication adjustment. Essential (primary) hypertension 08/15/2017 Assessment & Plan (11/27/2024 2:03 PM HUMAN RESOURCES SERVICES SPECIALIST): Episodes of hypotension. We are going to hold amlodipine. We are going to have Dayna Beatty [facility] living check her blood pressure daily and report numbers in 1 week. Assessment & Plan (05/07/2023 3:57 PM CDT): Chronic and controlled without medication. Continue to monitor. Assessment & Plan (11/15/2021 10:28 AM HUMAN RESOURCES SERVICES SPECIALIST): Stable, continue current meds Assessment & Plan (10/12/2020 11:26 AM HUMAN RESOURCES SERVICES SPECIALIST): Stable continue meds Assessment & Plan (02/19/2020 3:30 PM CDT): Stable Assessment & Plan (11/18/2019 4:05 PM HUMAN RESOURCES SERVICES SPECIALIST): Stable continue meds Assessment & Plan (08/26/2019 1:22 PM HUMAN RESOURCES SERVICES SPECIALIST): Stable, continue current meds Primary osteoarthritis of right knee 08/15/2017 Assessment & Plan (05/07/2023 2:31 PM CDT): Continue Tylenol as needed for pain. Assessment & Plan (11/15/2021 10:29 AM HUMAN RESOURCES SERVICES SPECIALIST): Patient takes Tylenol for pain. Assessment & Plan (10/12/2020 11:28 AM HUMAN RESOURCES SERVICES SPECIALIST): Uncontrolled. Patient will hopefully get to start physical therapy soon once her insurance has been reinstated. Patient may also need to see Ortho in the near future Assessment & Plan (08/26/2019 1:24 PM HUMAN RESOURCES SERVICES SPECIALIST): stable Unsteady gait 11/09/2016 Assessment & Plan (05/07/2023 3:58 PM CDT): Completed physical therapy. No recent falls. Assessment & Plan (11/15/2021 10:29 AM HUMAN RESOURCES SERVICES SPECIALIST): Recommend physical therapy. Recommend using a cane Assessment & Plan (10/12/2020 11:29 AM HUMAN RESOURCES SERVICES SPECIALIST): Uncontrolled. Patient is doing okay with her [...] daily. Assessment & Plan (08/26/2019 1:24 PM HUMAN RESOURCES SERVICES SPECIALIST): Use cane at all times, Recommend PT. Pt will consider that. Assessment & Plan (02/02/2019 11:25 AM CDT): Order physical therapy Glucose intolerance (impaired glucose tolerance) 09/03/2016 Assessment & Plan (05/07/2023 3:57 PM CDT): Diet controlled. Labs ordered today. Assessment & Plan (11/15/2021 10:28 AM HUMAN RESOURCES SERVICES SPECIALIST): Diet controlled, requested lab results Assessment & Plan (10/12/2020 11:27 AM HUMAN RESOURCES SERVICES SPECIALIST): Stable, diet controlled Assessment & Plan (02/19/2020 3:30 PM CDT): Diet controlled check labs Assessment & Plan (08/26/2019 1:23 PM HUMAN RESOURCES SERVICES SPECIALIST): Diet controlled, due for labs Obstructive sleep apnea 08/14/2016 Assessment & Plan (05/07/2023 2:30 PM CDT): Not on CPAP. Assessment & Plan (11/15/2021 10:29 AM HUMAN RESOURCES SERVICES SPECIALIST): Stable Assessment & Plan (10/12/2020 11:28 AM HUMAN RESOURCES SERVICES SPECIALIST): Stable, no CPAP machine at this time Assessment & Plan (08/26/2019 1:13 PM HUMAN RESOURCES SERVICES SPECIALIST): No cpap machine Other allergic rhinitis 08/14/2016 Assessment & Plan (05/07/2023 2:30 PM CDT): Continue current management. Assessment & Plan (11/15/2021 10:29 AM HUMAN RESOURCES SERVICES SPECIALIST): Stable Assessment & Plan (10/12/2020 11:28 AM HUMAN RESOURCES SERVICES SPECIALIST): Stable p.r.n. meds Assessment & Plan (08/26/2019 1:23 PM HUMAN RESOURCES SERVICES SPECIALIST): stable Atrial flutter 02/14/2016 Overview (02/08/2025): Last Assessment & Plan: Stable Last Assessment & Plan: Stable Other specified hypothyroidism 12/30/2015 Assessment & Plan (05/07/2023 2:30 PM CDT): Continue current dose of levothyroxine. Due for TSH. Assessment & Plan (11/15/2021 10:29 AM HUMAN RESOURCES SERVICES SPECIALIST): Stable, continue meds, requested lab Assessment & Plan (10/12/2020 11:28 AM HUMAN RESOURCES SERVICES SPECIALIST): Stable continue meds Assessment & Plan (02/19/2020 3:31 PM CDT): Check labs Assessment & Plan (08/26/2019 1:24 PM HUMAN RESOURCES SERVICES SPECIALIST): Stable, check labs Mixed hyperlipidemia 12/30/2015 Assessment & Plan (05/07/2023 2:30 PM CDT): Diet controlled. Will continue to monitor lipid panel. Assessment & Plan (11/15/2021 10:29 AM HUMAN RESOURCES SERVICES SPECIALIST): Diet controlled. Requested lab Assessment & Plan (10/12/2020 11:28 AM HUMAN RESOURCES SERVICES SPECIALIST): Stable, patient is not on meds at this time Assessment & Plan (02/19/2020 3:31 PM CDT): Check labs Assessment & Plan (08/26/2019 1:23 PM HUMAN RESOURCES SERVICES SPECIALIST): Check labs Vitamin D deficiency 12/30/2015 Assessment & Plan (05/07/2023 2:31 PM CDT): Continue vitamin-D supplement. Assessment & Plan (11/15/2021 10:30 AM HUMAN RESOURCES SERVICES SPECIALIST): Stable continue vitamin Assessment & Plan (10/12/2020 11:29 AM HUMAN RESOURCES SERVICES SPECIALIST): Stable continue vitamin Assessment & Plan (02/19/2020 3:31 PM CDT): Check labs Assessment & Plan (08/26/2019 1:25 PM HUMAN RESOURCES SERVICES SPECIALIST): Continue vit d Resolved Problems Problem Noted Date Diagnosed Date Resolved Date Unspecified mood (affective) disorder ([facility]) 03/21/2020 11/15/2021 Assessment & Plan (10/12/2020 11:29 AM HUMAN RESOURCES SERVICES SPECIALIST): Stable followed by Psychiatry Assessment & Plan [...] 2 Assessment & Plan (10/12/2020 11:28 AM HUMAN RESOURCES SERVICES SPECIALIST): Stable continue meds Assessment & Plan (11/18/2019 4:05 PM HUMAN RESOURCES SERVICES SPECIALIST): With patient's change in urinary symptoms I would like to hold the VESIcare and see how she does. UA in office today was negative Assessment & Plan (08/26/2019 1:24 PM HUMAN RESOURCES SERVICES SPECIALIST): Stable, continue meds Mild neurocognitive disorder 12/20/2017 [...] 2019 Assessment & Plan (10/14/2019 1:03 PM HUMAN RESOURCES SERVICES SPECIALIST): Referral to memory clinic at [facility]. Scores show mild decline. Assessment & Plan (08/26/2019 1:23 PM HUMAN RESOURCES SERVICES SPECIALIST): Need to rtc for memory testing. 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 08/26/2019 Leucocytosis 03/26/2017 08/26/2019 MARTIN (dyspnea on exertion) 12/11/2016 History of IBS 09/03/2016 08/26/2019 History of radiofrequency ab lation procedure for cardiac arrhythmia 09/03/2016 08/26/2019 Vulvar dystrophy 09/03/2016 10/12/2020 Assessment & Plan (08/26/2019 1:25 PM HUMAN RESOURCES SERVICES SPECIALIST): Stable History of rhabdomyolysis 08/14/2016 Atrial flutter (CMS/HCC) 02/14/201606/2022 Assessment & Plan (10/12/2020 11:26 AM HUMAN RESOURCES SERVICES SPECIALIST): Stable Assessment & Plan (02/19/2020 3:30 PM CDT): Stable Assessment & Plan (08/26/2019 1:22 PM HUMAN RESOURCES SERVICES SPECIALIST): Stable followed by cardiology Encounters Date Type Department Care Team Description 02/24/2025 8:30 AM CDT Office Visit [facility] Cardiology [address] [place] [address] Kassandra Shannon NP Chronic atrial fibrillation (HCC) (Primary Dx); Mitral valve insufficiency, unspecified etiology; Hospital discharge follow-up 02/03/2025 Orders Only [facility] Medical [facility] Cardiology [address] [place] [address] Kassandra Shannon NP 01/27/2025 1:45 PM CDT Office Visit [facility] [place] [address] [place] [id number] Betsy Ryan NP 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) (Primary Dx) 01/13/2025 Orders Only [facility] Scanning, Provider 01/12/2025 Documentation [facility] [place] [address] [place] [id number] Sherly Ivey, MIRA 01/08/2025 Telephone [facility] [address] [place] [address] Harriett Sutherland, A from Last [...] on file Legal Sex Female 1:09 AM HUMAN RESOURCES SERVICES SPECIALIST Gender Identity Female 10/05/2020 10:15 AM HUMAN RESOURCES SERVICES SPECIALIST Sexual Orientation Straight 10/05/2020 10 :15 AM HUMAN RESOURCES SERVICES SPECIALIST 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 TB: TB Report ID: [id number] Reading Location: [id number] Procedure Note MoonLanette MD - 05/07/2022 EXAM DESCRIPTION: DEXA AXIAL SKELETON BONE DENSITY 1 OR MORE SITES REASON FOR STUDY: 71 y/o year old F with given history ofscreening. 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 TB: TB Report ID: [id number] Reading Location: [place] [address] Nan RILEY IMG DXA PROCEDURES Final Resul t * COLONOSCOPY (12/16/2018) Colonoscopy Abnormal Historical Provider MD HEALTH MAINTENANCE Final Result * MAMMOGRAPHY (02/04/2018) Pathologist [facility] Mammogram Normal Historical Provider MD HEALTH MAINTENANCE Final Result * Hepatitis C antibody (04/24/2017 11:05 AM CDT) [facility] Hep C Ab NONREACT NONREACTIVE Comment: [...] MICROBIOLOGY - GENERAL ORD ERABLES Final Result [facility] HISTORICAL RESULTS from Last 3 Months or Most Recently Relevant to Health Maintenance Insurance [address] [place], [place] [id number] MEDICARE [facility] MEDICARE ADVANTAGE [place] [id number] [facility] MEDICARE ADVANTAGE Member Subscriber Plan / Payer (Ef fective 2021-Present) Name:Kriss Worley Relation to Subscriber:Self Name:Kriss Worley Payer ID:[id number] (NA) Type:UHC MEDICARE Address: [place] [id number] [place] [id number] [facility] MEDICARE ADVANTAGE [facility] Address: [facility] [address] [place] [address] Advance Directives For more information, please contact: [phone] Documents on File Type Date Recorded Patient Tenderizer Tender Expl anation ADVANCE DIRECTIVE 12/07/2020 3:24 PM DNR ADVANCE DIRECTIVE 09/25/2013 12:00 AM [facility] OF EXCHANGE CLERK FINANCIAL/MEDICAL Care Teams Data Lead Relationship Specialty Start Date End Date Nan Blair PA [address] [place] [address] PCP - General Family Medicine 07/03/22 Jorge Jefferson MD [address] [place] [address] Consulting Physician Family Medicine 03/09/19 Lizzie Collins MD [address] [address] Traffic Engineering Technician Cardiology 05/18/19 Freeman Chung MD [address] [place] [address] Referring Physician Geriatric Psychiatry 06/09/20 Maribel Andrade MD [address] [address] Consulting Physician Anesthesiology 12/31/20 Guy Rosen MD [address] [place] [address] Psychiatry 01/11/22
--- OUTSIDE RECORDS SUMMARY | 2025-04-08 19:50 | XMS_ITS | Referral Summary ---
Author Organization [facility] Address [address] [place] [address] Care Team Providers Care Printing Pressman Name Role Phone Jorge Jefferson MD Unavailable Lizzie Collins MD Unavailable [phone] Freeman Chung MD Unavailable [phone] Maribel Andrade MD Unavailable Guy Rosen MD Unavailable Nan Blair Primary Care Provider [phone] Encounters Date Type Department Care Team Description 02/24/2025 8:30 AM CDT Office Visit [facility] [address] [place] [address] Kassandra Shannon NP Chronic atrial fibrillation (HCC) (Primary Dx); Mitral valve insufficiency, unspecified etiology; Hospital discharge follow-up 02/03/2025 Orders Only [facility] [address] [place] [address] Kassandra Shannon NP 01/27/2025 1:45 PM CDT Office Visit [address] 6[address] [place] [address] Betsy Ryan NP 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) (Primary Dx) 01/13/2025 Orders Only [facility], Provider 01/12/2025 Documentation [facility] [address] Floor [address] [place] [address] Sherly Ivey, CLINICAL DOCUMENTATION CONSULTANT 01/08/2025 Telephone [facility] [address] [place] [address] Harriett Sutherland, RMA from Last 3 Months Allergies Active Allergy Reactions Criticality Noted Date Comments Amoxicillin Unknown 02/02/2019 Codeine Other (See comments),Dizziness,Naus ea And Vomiting,Unknown Low 03/16/2016 Spaced out and sick to stomach Spaced out and sick to stomach confusion, n/v [place] Other (See comments),Unknown Low 02/02/2019 Severe reaction-Kidney [...] 11/27/2024 Assessment & Plan (11/27/2024 1:17 PM BRUSH FABRICATION SUPERVISOR): Patient had a seizure 1 year [...] 10/12/2020 Assessment & Plan (11/27/2024 10:55 AM BRUSH FABRICATION SUPERVISOR): Progressing. Patient will continue Namenda and [...] ASL Assessment & Plan (11/15/2021 10:29 AM BRUSH FABRICATION SUPERVISOR): Worsening. Patient will continue current meds. [...] addictive. Agree with move to [facility]. Continue to work with Dr. Paracha, counselor and cognitive stimulation therapist. Assessment & Plan (10/12/2020 11:27 AM BRUSH FABRICATION SUPERVISOR): Followed by neurology, unchanged Class 1 obesity due to exces s calories with serious comorbidity and body mass index (BMI) of 31.0 to 31.9 in adult 08/26/2019 Assessment & Plan (05/07/2023 2:29 PM CDT): Reviewed BMI Focus on healthy diet options Work on healthy changes Assessment & Plan (11/15/2021 10:28 AM BRUSH FABRICATION SUPERVISOR): Uncontrolled. Goal of BMI is less [...] month Assessment & Plan (10/12/2020 11:26 AM BRUSH FABRICATION SUPERVISOR): Educated patient on healthy diet/exercise plan. [...] sugar. Assessment & Plan (08/26/2019 1:23 PM BRUSH FABRICATION SUPERVISOR): Educated patient on healthy diet/exercise plan. [...] 05/25/2020 Assessment & Plan (11/15/2021 10:28 AM BRUSH FABRICATION SUPERVISOR): PMH/MHA: 11/15/2021 Last pap:2012 Last mammogram: 02/04/2018 (requested report) Last dexa:02/04/2018, ordered Last colonoscopy/cologuard:08/2015, 12/16/2018 repeat 2023 Last Hep C:04/2017 Last tdap:04/08/2013 Last Prevnar/pneumovax: 05/18/2015 (13) 07/18/2011 (23) Last Shingrix: (zoster 10/07/2012) 10/16/2018, 07/03/2018 Last eye exam: 05/25/2020 Assessment & Plan (10/12/2020 11:27 AM BRUSH FABRICATION SUPERVISOR): PMH/MHA: 10/12/2020 Last pap:2013 Last mammogram: 02/04/2018 Last dexa:02/04/2018 Last colonoscopy/cologuard:08/2015, 12/16/2018 repeat 2023 Last Hep C:04/2017 Last tdap:04/08/2013 Last Prevnar/pneumovax: 05/18/2015 (13) 07/18/2011 (23) Last Shingrix: (zoster 10/07/2012) 10/16/2018, 07/03/2018 Last eye exam: 05/25/2020 Assessment & Plan (08/26/2019 1:10 PM BRUSH FABRICATION SUPERVISOR): PMH/MHA: 08/26/2019 Last pap:2012 Last mammogram: 02/04/2018 Last dexa:02/04/2018 Last colonoscopy/cologuard:08/2015, 12/16/2018 repeat 2023 Last Hep C:04/2017 Last tdap:04/08/2013 Last Prevnar/pneumovax: 05/18/2015 (13) 07/18/2011 (23) Last Shingrix: (zoster 10/07/2012) 10/16/2018, 07/03/2018 Last eye exam: due Recurrent major depressive disorder, in partial remission 10/13/2018 Assessment & Plan (05/07/2023 3:58 PM CDT): Chronic. Continue follow-up psychiatry. Assessment & Plan (11/15/2021 10:29 AM BRUSH FABRICATION SUPERVISOR): Stable continue meds Assessment & Plan (10/12/2020 11:28 AM BRUSH FABRICATION SUPERVISOR): Stable, followed by Psychiatry Assessment & Plan (05/23/2020 3:09 PM CDT): Strongly recommend consistent care and follow-up with [facility] Psychiatry to evaluate and treat [...] psychiatry Assessment & Plan (10/16/2019 1:12 PM BRUSH FABRICATION SUPERVISOR): Uncontrolled. Assessment & Plan (10/14/2019 1:02 PM BRUSH FABRICATION SUPERVISOR): Uncontrolled. I really feel like pt is very lonely and she needs daily interaction with other people. Encouraged pt to consider a snf center to open her world to new hobbies, interactions with other. Need referral to psychiatrist. Need to see counselor within the next 2 wks. Memory issues may be related to depression. Assessment & Plan (08/26/2019 1:24 PM BRUSH FABRICATION SUPERVISOR): Referral to psychiatrist Generalized anxiety disorder 03/12/2018 Assessment & Plan (05/07/2023 3:57 PM CDT): Chronic. Continue follow-up with psychiatrist. Assessment & Plan (11/15/2021 10:28 AM BRUSH FABRICATION SUPERVISOR): Stable, continue current meds Assessment & Plan (10/12/2020 11:26 AM BRUSH FABRICATION SUPERVISOR): Stable followed by Psychiatry Assessment & Plan (02/19/2020 3:30 PM CDT): Stable Assessment & Plan (11/18/2019 4:05 PM BRUSH FABRICATION SUPERVISOR): Patient will hold lorazepam at this time. She is not having any anxiety Assessment & Plan (10/14/2019 1:03 PM BRUSH FABRICATION SUPERVISOR): Referral psychiatrist Assessment & Plan (08/26/2019 1:22 PM BRUSH FABRICATION SUPERVISOR): Stable Bipolar 1 disorder, depressed, moderate 11/06/19 18 Assessment & Plan (11/27/2024 1:17 PM BRUSH FABRICATION SUPERVISOR): Chronic, stable, patient will continue her medications for Alzheimer's to include Aricept and Namenda. No additional meds needed at this time Assessment & Plan (05/07/2023 3:57 PM CDT): Chronic. Continue follow-up with psychiatrist. Assessment & Plan (11/15/2021 10:27 AM BRUSH FABRICATION SUPERVISOR): Stable Assessment & Plan (10/12/2020 11:26 AM BRUSH FABRICATION SUPERVISOR): Stable followed by Psychiatry Assessment & Plan (05/02/2020 2:11 PM CDT): Follow with psychiatry Assessment & Plan (02/19/2020 3:30 PM CDT): Patient has not made appointment with a psychiatrist. Patient reports she is feeling stable on her current meds. I encouraged patient to make a Psychiatry appointment Assessment & Plan (11/18/2019 4:05 PM BRUSH FABRICATION SUPERVISOR): Uncontrolled. Increase Wellbutrin to 300 mg. Patient needs to see a psychiatrist. Patient given a list of psychiatrist in the area. I spoke with her lela not too long ago about patient needing to see the psychiatrist and also patient needing to consider moving into some type of snf center to have interactions with other people Assessment & Plan (10/16/2019 3:21 PM BRUSH FABRICATION SUPERVISOR): Uncontrolled. Pt does not have a [...] looking into inpatient psychiatric care at [facility] in [place]. Patient's son will be contacting his brother and they will be deciding what to do in the next day or so. Patient will be monitor closely over the weekend by Papo. Assessment & Plan (10/14/2019 1:03 PM BRUSH FABRICATION SUPERVISOR): Uncontrolled, referral to psychiatrist. Assessment & Plan (08/26/2019 1:22 PM BRUSH FABRICATION SUPERVISOR): Depressed, need to see psychiatry for medication adjustment. Essential (primary) hypertension 08/15/2017 Assessment & Plan (11/27/2024 2:03 PM BRUSH FABRICATION SUPERVISOR): Episodes of hypotension. We are going to hold amlodipine. We are going to have [facility] check her blood pressure daily and report numbers in 1 week. Assessment & Plan (05/07/2023 3:57 PM CDT): Chronic and controlled without medication. Continue to monitor. Assessment & Plan (11/15/2021 10:28 AM BRUSH FABRICATION SUPERVISOR): Stable, continue current meds Assessment & Plan (10/12/2020 11:26 AM BRUSH FABRICATION SUPERVISOR): Stable continue meds Assessment & Plan (02/19/2020 3:30 PM CDT): Stable Assessment & Plan (11/18/2019 4:05 PM BRUSH FABRICATION SUPERVISOR): Stable continue meds Assessment & Plan (08/26/2019 1:22 PM BRUSH FABRICATION SUPERVISOR): Stable, continue current meds Primary osteoarthritis of right knee 08/15/2017 Assessment & Plan (05/07/2023 2:31 PM CDT): Continue Tylenol as needed for pain. Assessment & Plan (11/15/2021 10:29 AM BRUSH FABRICATION SUPERVISOR): Patient takes Tylenol for pain. Assessment & Plan (10/12/2020 11:28 AM BRUSH FABRICATION SUPERVISOR): Uncontrolled. Patient will hopefully get to start physical therapy soon once her insurance has been reinstated. Patient may also need to see Ortho in the near future Assessment & Plan (08/26/2019 1:24 PM BRUSH FABRICATION SUPERVISOR): stable Unsteady gait 11/09/2016 Assessment & Plan (05/07/2023 3:58 PM CDT): Completed physical therapy. No recent falls. Assessment & Plan (11/15/2021 10:29 AM BRUSH FABRICATION SUPERVISOR): Recommend physical therapy. Recommend using a cane Assessment & Plan (10/12/2020 11:29 AM BRUSH FABRICATION SUPERVISOR): Uncontrolled. Patient is doing okay with [...] daily. Assessment & Plan (08/26/2019 1:24 PM BRUSH FABRICATION SUPERVISOR): Use cane at all times, Recommend PT. Pt will consider that. Assessment & Plan (02/02/2019 11:25 AM CDT): Order physical therapy Glucose intolerance (impaired glucose tolerance) 09/03/2016 Assessment & Plan (05/07/2023 3:57 PM CDT): Diet controlled. Labs ordered today. Assessment & Plan (11/15/2021 10:28 AM BRUSH FABRICATION SUPERVISOR): Diet controlled, requested lab results Assessment & Plan (10/12/2020 11:27 AM BRUSH FABRICATION SUPERVISOR): Stable, diet controlled Assessment & Plan (02/19/2020 3:30 PM CDT): Diet controlled check labs Assessment & Plan (08/26/2019 1:23 PM BRUSH FABRICATION SUPERVISOR): Diet controlled, due for labs Obstructive sleep apnea 08/14/2016 Assessment & Plan (05/07/2023 2:30 PM CDT): Not on CPAP. Assessment & Plan (11/15/2021 10:29 AM BRUSH FABRICATION SUPERVISOR): Stable Assessment & Plan (10/12/2020 11:28 AM BRUSH FABRICATION SUPERVISOR): Stable, no CPAP machine at this time Assessment & Plan (08/26/2019 1:13 PM BRUSH FABRICATION SUPERVISOR): No cpap machine Other allergic rhinitis 08/14/2016 Assessment & Plan (05/07/2023 2:30 PM CDT): Continue current management. Assessment & Plan (11/15/2021 10:29 AM BRUSH FABRICATION SUPERVISOR): Stable Assessment & Plan (10/12/2020 11:28 AM BRUSH FABRICATION SUPERVISOR): Stable p.r.n. meds Assessment & Plan (08/26/2019 1:23 PM BRUSH FABRICATION SUPERVISOR): stable Atrial flutter 02/14/2016 Overview (02/08/2025): Last Assessment & Plan: Stable Last Assessment & Plan: Stable Other specified hypothyroidism 12/30/2015 Assessment & Plan (05/07/2023 2:30 PM CDT): Continue current dose of levothyroxine. Due for TSH. Assessment & Plan (11/15/2021 10:29 AM BRUSH FABRICATION SUPERVISOR): Stable, continue meds, requested lab Assessment & Plan (10/12/2020 11:28 AM BRUSH FABRICATION SUPERVISOR): Stable continue meds Assessment & Plan (02/19/2020 3:31 PM CDT): Check labs Assessment & Plan (08/26/2019 1:24 PM BRUSH FABRICATION SUPERVISOR): Stable, check labs Mixed hyperlipidemia 12/30/2015 Assessment & Plan (05/07/2023 2:30 PM CDT): Diet controlled. Will continue to monitor lipid panel. Assessment & Plan (11/15/2021 10:29 AM BRUSH FABRICATION SUPERVISOR): Diet controlled. Requested lab Assessment & Plan (10/12/2020 11:28 AM BRUSH FABRICATION SUPERVISOR): Stable, patient is not on meds at this time Assessment & Plan (02/19/2020 3:31 PM CDT): Check labs Assessment & Plan (08/26/2019 1:23 PM BRUSH FABRICATION SUPERVISOR): Check labs Vitamin D deficiency 12/30/2015 Assessment & Plan (05/07/2023 2:31 PM CDT): Continue vitamin-D supplement. Assessment & Plan (11/15/2021 10:30 AM BRUSH FABRICATION SUPERVISOR): Stable continue vitamin Assessment & Plan (10/12/2020 11:29 AM BRUSH FABRICATION SUPERVISOR): Stable continue vitamin Assessment & Plan (02/19/2020 3:31 PM CDT): Check labs Assessment & Plan (08/26/2019 1:25 PM BRUSH FABRICATION SUPERVISOR): Continue vit d Resolved Problems Problem Noted Date Diagnosed Date Resolved Date Unspecified mood (affective) disorder ([facility]) 03/21/2020 11/15/2021 Assessment & Plan (10/12/2020 11:29 AM BRUSH FABRICATION SUPERVISOR): Stable followed by Psychiatry Assessment & [...] 2 Assessment & Plan (10/12/2020 11:28 AM BRUSH FABRICATION SUPERVISOR): Stable continue meds Assessment & Plan (11/18/2019 4:05 PM BRUSH FABRICATION SUPERVISOR): With patient's change in urinary symptoms I would like to hold the VESIcare and see how she does. UA in office today was negative Assessment & Plan (08/26/2019 1:24 PM BRUSH FABRICATION SUPERVISOR): Stable, continue meds Mild neurocognitive disorder [...] 2019 Assessment & Plan (10/14/2019 1:03 PM BRUSH FABRICATION SUPERVISOR): Referral to memory clinic at [facility]. Scores show mild decline. Assessment & Plan (08/26/2019 1:23 PM BRUSH FABRICATION SUPERVISOR): Need to rtc for memory testing. 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 10/12/2020 Assessment & Plan (08/26/2019 1:25 PM BRUSH FABRICATION SUPERVISOR): Stable History of rhabdomyolysis 08/14/2016 Atrial flutter (CMS/HCC) 02/14/201606/2022 Assessment & Plan (10/12/2020 11:26 AM BRUSH FABRICATION SUPERVISOR): Stable Assessment & Plan (02/19/2020 3:30 PM CDT): Stable Assessment & Plan (08/26/2019 1:22 PM BRUSH FABRICATION SUPERVISOR): Stable followed by cardiology Immunizations Immunization Administration [...] on file Legal Sex Female 1:09 AM BRUSH FABRICATION SUPERVISOR Gender Identity Female 10/05/2020 10:15 AM BRUSH FABRICATION SUPERVISOR Sexual Orientation Straight 10/05/2020 10 :15 AM BRUSH FABRICATION SUPERVISOR 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 Pressure Steamer Tender/Model: Need A (S/N [id number]) CLINICAL INFORMATION: Current height: 64 inches Maximum [...] Lanette Gloria M.D. TB: TB Report ID: [id number] Reading Location: [place] [address] Procedure Note MoonLanette MD - 05/07/2022 EXAM DESCRIPTION: DEXA AXIAL SKELETON BONE DENSITY 1 OR MORE SITES REASON FOR STUDY: 71 y/o year old F with given history ofscreening. Pressure Steamer Tender/Model: Need A (S/N [id number]) CLINICAL INFORMATION: Current height: 64 inches Maximum [...] Lanette Gloria M.D. TB: TB Report ID: [id number] Reading Location: [place] [address] Nan RILEY IMG DXA PROCEDURES Final Resul t * COLONOSCOPY (12/16/2018) [facility] Colonoscopy Abnormal Result [facility] Provider [place]INTE[place] Final Result * MAMMOGRAPHY (02/04/2018) [facility] Mammogram Normal Result [facility] Provider [facility] Final Result * Hepatitis C antibody (04/24/2017 11:05 AM CDT) [facility] Hep C Ab NONREACT NONREACTIVE 04/24/2017 8:34 PM CDT [facility] HISTORICAL RESULTS Comment: Siemens CentaurXP using NIKUNJ [...] AM CDT 04/24/2017 3:39 PM CDT Result [facility] Nan RILEY LAB MICROBIOLOGY - GENERAL ORD ERABLES Final Result [facility] HISTORICAL RESULTS from Last 3 Months or Most Recently Relevant to Health Maintenance Insurance [facility] MEDICARE ADVANTAGE [facility] MEDICARE ADVANTAGE [facility] MEDICARE ADVANTAGE Advance Directives For more information, please contact: [phone] Documents on File Type Date Recorded Patient Cotton Tier Expl anation ADVANCE DIRECTIVE 12/07/2020 3:24 PM DNR ADVANCE DIRECTIVE 09/25/2013 12:00 AM [facility] NET DEVELOPER FINANCIAL/MEDICAL Care Teams Printing Pressman Relationship Specialty Start Date End Date Nan Blair PA [address] [place] [address] PCP - General Family Medicine 07/03/22 Jorge Jefferson MD [address] [place] [address] Consulting Physician Family Medicine 03/09/19 Lizzie Collins MD [address] [address] Manager Star Cardiology 05/18/19 Freeman Chung MD [address] [place] [address] Referring Physician Geriatric Psychiatry 06/09/20 Maribel Andrade MD [address] [address] Consulting Physician Anesthesiology 12/31/20 [place] [address] [place] [address] Psychiatry 01/11/22
--- OUTSIDE RECORDS SUMMARY | 2025-04-08 19:50 | XMS_ITS | Encounter Summary ---
Author Organization [facility] Care Team Providers Care Siphoner Name Role Phone Nan Blair Primary Care Provider [phone] Jorge Jefferson MD Primary Care Provid er Nan Blair Unavailable [phone] Nan Blair Primary Care Provider [phone] Jorge Jefferson MD Unavailable [phone] Lizzie Collins MD Unavailable [phone] Freeman Chung MD Unavailable [phone] Maribel Andrade MD Unavailable [phone] Guy Rosen MD Unavailable Miscellaneous, Not In File Primary Care Provider Unavailable Nan Blair Primary Care Provider [phone] Encounter Details Date Type Department Care Team (Latest Contact Info) Description 04/17/2017 Orders Only [facility] ProviderJulieta MD [address] [place] [id number] Social History Tobacco Use Types Packs/Day Years Used Date Smoking Tobacco: Never Assessed Comments Unknown Sex and Gender Information Value Date Recorded Sex Assigned at Not on file Legal Sex Female 1:09 AM GLUE LINE OPERATOR Gender Identity Female 10/05/2020 10:15 AM GLUE LINE OPERATOR Sexual Orientation Straight 10/05/2020 10 :15 AM GLUE LINE OPERATOR documented as of this encounter Plan [...] on filedocumented in this encounter Care Teams Siphoner Relationship Specialty Start Date End Date Nan Blair PA [address] [place] [address] PCP - General Physician Information Technology Project Manager 04/28/18 02/01/19 Jorge Jefferson MD [address] [place], [place] [address] PCP - General Family Medicine 02/02/19 03/08/19 Nan Blair PA [address] [place] [address] PCP - General Physician Information Technology Project Manager 03/09/19 05/03/22 Miscellaneous, Not In File PCP - General 05/04/22 07/02/22 Nan Blair PA [address] [facility], [place] [address] PCP - General Family Medicine 07/03/22 Nan Blair PA [address] [place], [place] [address] Physician Information Technology Project Manager Physician Information Technology Project Manager 02/02/19 9 Jorge Jefferson MD [address] [place] [address] Consulting Physician Family Medicine 03/09/19 Lizzie Collins MD [address] [address] Director Of Respiratory Therapy Cardiology 05/18/19 Freeman Chung MD [address] [place] [address] Referring Physician Geriatric Psychiatry 06/09/20 Maribel Andrade MD [address] [address] Consulting Physician Anesthesiology 12/31/20 Guy Rosen MD [address] [place] [address] Psychiatry 01/11/22 documented as of this encounter
--- OUTSIDE RECORDS SUMMARY | 2025-04-08 19:50 | XMS_ITS | Clinical Summary ---
Author Organization [facility] [employer] Address [address] [place] [address] Care Team Providers Care Planning Management It Specialist Name Role Phone Nan Blair Primary Care Provider [phone] Source Comments [facility] [employer],non-owned Affiliates and Associated Physician Practices is amultiple site organization consisting of ambulatory clinics and hospital sitesin [place], [place], [place] and [place]. This disclosure is being madepursuant to the Care Everywhere program and may not contain all information available regarding this patient. Last updated 18.[facility] [employer] Allergies Active Allergy Reactions Criticality Noted Date Comments Codeine Dizziness 03/19/2020 [place] Other Low 02/02/2019 Severe reaction-Kidney failure Severe [...] on file Legal Sex Female 6:28 AM DIRECTOR AGRICULTURAL SERVICES Gender Identity Not on file Sexual Orientation [...] patient's age to complete this topic Insurance [facility] MANAGED MEDICARE ADV [employer] MANAGED MEDICARE ADV Advance Directives * Full Code (Latest Code Status on File) Date Activated Date Inactivated Comments 03/21/2020 5:53 PM 03/25/2020 5:03 PM * Full Code Date Activated Date Inactivated Comments 03/19/2020 6:05 PM 03/21/2020 5:36 PM Care Teams Planning Management It Specialist Relationship Specialty Start Date End Date Nan Blair PA PCP - General 05/08/20
[2025-04-08 20:30] VITALS: BP 118/89; PULSE 112; RESP 16; O2SAT 97
[2025-04-08] MEDS: LORazepam (*CRX) 0.5 MG TABLET PO (20:33)
[2025-04-08 21:07] VITALS: BP 139/104; PULSE 94; RESP 19; O2SAT 97
[2025-04-08 21:08] VITALS: TEMP 36.8
== END 2025-04-08 21:09 | disposition home or self-care (01) ==
PROVIDERS: Emergency Provider Emergency Medicine; PCP Physician Assistant
DX: S09.90XA Unspecified injury of head, initial encounter (principal); I48.91 Unspecified atrial fibrillation; G30.9 Alzheimer's disease, unspecified; F02.80 Dementia in other diseases classified elsewhere, unspecified severity, without behavioral disturbance, psychotic disturbance, mood disturbance, and anxiety; Z79.01 Long term (current) use of anticoagulants; W19.XXXA Unspecified fall, initial encounter
CPT/HCPCS: 70450; 72125; 73610; 96374; 99284; A9270

== ENCOUNTER 2025-05-30 08:02 | Inpatient (IN) | payer MEDICARE, SELFPAY ==
[2025-05-30] VITALS (10 sets, daily range): BP systolic 102–138; BP diastolic 50–101; PULSE 57–112; RESP 17–21; TEMP 36.6–36.8; O2SAT 93–96; BMI 32.2
--- NOTE | ~2025-05-30 | XR_ITS ---
XR chest 1V portable 05/30/2025 08:26 Indication: Chest palpitations Procedure: AP portable chest Comparison: 02/25/2025 Findings: Cardiomegaly. Mild interstitial edema. No significant effusion or pneumothorax. No acute osseous abnormality. Impression: 1: Cardiomegaly with mild interstitial edema. Reviewed, dictated and finalized at location O. Impression: 1: Cardiomegaly with mild interstitial edema.
--- NOTE | 2025-05-30 08:05 | ED.ARRPALP ---
HPI - Arrhythmia/Palpitations General Chief Complaint: Arrhythmia/Palpitations Stated Complaint: chest congestion Source: patient Mode of arrival: EMS Limitations: no limitations History of Present Illness HPI narrative: 74 YEARS OLD WHITE FEMALE CAME FROM [facility]ISTING [facility]IV[facility] BY AMBULANCE BECAUSE WAKING UP THIS MORNING WITH DRY COUGH. PATIENT DENIES ANY FEVER, CHILLS, NAUSEA, VOMITING, SHORTNESS OF BREATH, CHEST PAIN, BACK PAIN OR SICK CONTACT. IN THE ED PATIENT IS ASYMPTOMATIC HISTORY OF ATRIAL FIBRILLATION CURRENTLY ON ELIQUIS Related Data Home Medications ?Medication ?Instructions ?Recorded ?Confirmed ?Last Taken ?Type aspirin 81 mg chewable tablet 81 mg PO DAILY 05/03/24 05/30/25 05/30/25 09:00 History 81 mg cyanocobalamin (vitamin B-12) 500 500 mcg PO DAILY 05/03/24 05/30/25 05/30/25 09:00 History mcg tablet 500 mcg donepezil 10 mg tablet 10 mg PO DAILY 05/03/24 05/30/25 01/28/25 History levothyroxine 88 mcg tablet 88 mcg PO DAILY 05/03/24 05/30/25 05/30/25 06:00 History 88 mcg albuterol 90 mcg/actuation aerosol 180 mcg inhalation Q4H PRN wheezing 01/29/25 05/30/25 Unknown History inhaler cholecalciferol (vitamin D3) 25 25 mcg PO DAILY 01/29/25 05/30/25 05/30/25 09:00 History mcg (1,000 unit) tablet 25 mcg lamotrigine 25 mg tablet 25 mg PO Q12H 01/29/25 05/30/25 05/30/25 09:00 History 25 mg melatonin 10 mg capsule 5 mg PO HS 01/29/25 05/30/25 05/29/25 21:00 History 10 mg naltrexone 50 mg tablet 50 mg PO DAILY 01/29/25 05/30/25 05/30/25 09:00 History 50 mg L.acidophil-L.casei-B.bifid-B.longum-FOS 1 cap PO DAILY 05/30/25 05/30/25 05/30/25 09:00 History 2 billion cell-50 mg capsule 1 cap (Probiotic Blend) acetaminophen 500 mg tablet 1,000 mg PO Q4-6H PRN fever or pain 05/30/25 05/30/25 Unknown History oowawzcf-jekh-teif 8 mg-folic 400 1 tablet PO DAILY 05/30/25 05/30/25 05/30/25 09:00 History mcg-K 50 mcg-lutein 300 mcg tablet 1 tablet (Multivitamin Women 50 Plus) Allergies Allergy/AdvReac Type Severity Reaction Status Date / Time amoxicillin Allergy Unknown Verified 05/30/25 08:20 lithium Allergy kidney Verified 05/30/25 08:20 failure Penicillins Allergy Hives Verified 05/30/25 08:20 sulfamethoxazole (From Allergy Unknown Verified 05/30/25 08:20 Bactrim) trimethoprim (From Bactrim) Allergy Unknown Verified 05/30/25 08:20 codeine AdvReac Dizziness,n Verified 05/30/25 09:28 ausea/vomit ing morphine AdvReac Vomiting Verified 05/30/25 09:28 olanzapine AdvReac Confusion Verified 05/30/25 09:28 Review of Systems Review of Systems: All systems reviewed & are unremarkable except as noted in HPI and below PMFSH Past Medical History Medical History Dementia of the Alzheimer's type Accidental fall Family History Family History Mother Hypertension Alzheimer dementia Sibling Hypertension Social History Social History Smoking status: Never smoker Alcohol intake: never Drinks per week: 1 Substance use: never Substance use type: does not use Do You Feel Safe in your Home?: Yes Lack of Transportation: No Lack of Food: Never True Current Housing: I Have Housing Concerned About Future Housing: No Difficulty Paying Gas/Electric Bills: No Difficulty Paying for Meds: No Currently Unemployed: No Education: Decline to Answer Difficulty w/ Childcare or Family Care: No Spiritual care concerns: No Exam Narrative: GENERAL APPEARANCE: WELL-DEVELOPED, WELL-NOURISHED, INTERMITTENT HARSH COUGHING SKIN: NORMAL COLOR HEAD: NORMOCEPHALIC, NONTRAUMATIC EYES: CLEAR CONJUNCTIVA ENT: OROPHARYNX NORMAL, EARS NORMAL, NOSE NORMAL NECK: SUPPLE, NONTENDER CHEST AND RESPIRATORY: AIRWAY PATENT, NO RESPIRATORY DISTRESS, NO ACCESSORY MUSCLE USE HEART: TACHYCARDIA, IRREGULAR IRREGULARITY ABDOMEN: SOFT, NONTENDER, NO ORGANOMEGALY, QUIET BOWEL SOUNDS VASCULAR: NORMAL PERIPHERAL PULSES, NORMAL CAPILLARY REFILL. MUSCULOSKELETAL: NORMAL RANGE OF MOTION, NONTENDER BACK NEUROLOGIC: ALERT AND ORIENTED ?3, HEDGE FUND MANAGER IS NORMAL TESTED, NO GROSS MOTOR DEFICIT Course Vital Signs Vital signs: Vital Signs Temperature 36.6 C 05/30/25 08:02 Pulse Rate 112 H 05/30/25 08:02 Respiratory Rate 21 H 05/30/25 08:02 Blood Pressure 138/101 H 05/30/25 08:02 Pulse Oximetry 95 05/30/25 08:02 Oxygen Delivery Room Air 05/30/25 08:02 Temperature 36.8 C 06/01/25 15:40 Pulse Rate 82 06/01/25 16:00 Respiratory Rate 16 06/01/25 15:40 Blood Pressure 111/58 L 06/01/25 15:40 Pulse Oximetry 95 06/01/25 15:40 Oxygen Delivery Room Air 06/01/25 14:41 Fraction of Inspired Oxygen 21 05/31/25 20:30 MDM - Arrhythmia/Palpitations MDM Narrative Medical decision making narrative: Patient came to the ED from assisting living with dry cough 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 On arrival to the ED patient is asymptomatic. Vital sign showing blood pressure 138/101, heart rate 112, respiration 21 otherwise within normal limit Physical examination showing irregular irregularity, tachycardia otherwise insignificant abnormality Blood workup today include CBC, CMP, troponin, proBNP showed pro BMP 3310 otherwise within normal limit Patient tested negative for COVID flu and RSV Chest x-ray showed cardiomegaly with mild interstitial edema DIAGNOSIS: CONGESTIVE HEART FAILURE, HISTORY OF ATRIAL FIBRILLATION Differential Diagnosis Differential diagnosis: Likely other ( ABOVE) Medical Records Attestation: I reviewed the patient's medical records. Lab Data Attestation: I reviewed the patient's lab results. 06/01/25 04:06 06/01/25 04:06 Labs: Lab Results 05/30/25 05/30/25 05/30/25 Range/Units 08:15 08:34 09:18 WBC 7.8 (4.5-10.0) K/mm3 RBC 4.47 (4.2-5.4) M/mm3 Hgb 10.3 L (12.0-15.0) g/dL Hct 35.2 L (37.0-47.0) % MCV 78.7 L (80-100) fl MCH 23.0 L (26-34) pg MCHC 29.3 L (32-36) g/dl RDW 17.4 H (11.5-14.5) % Plt Count 355 (150-375) k/mm3 MPV 9.5 (7.4-10.4) fl Immature Gran % (Auto) 0.3 (0-0.5) % Neut % (Auto) 74.5 H (45.5-73.1) % Lymph % (Auto) 16.5 L (18.3-44.2) % [place] % (Auto) 6.9 (2.6-8.5) % Eos % (Auto) 1.0 (0-4.4) % Baso % (Auto) 0.8 (0.2-1.2) % Lymph # (Auto) 1.28 (0.9-3.2) K/mm3 [place] # (Auto) 0.5 (0.1-0.6) K/mm3 Eos # (Auto) 0.1 (0-0.3) K/mm3 Baso # (Auto) 0.1 (0.0-0.1) K/mm3 Abs Immat Gran (auto) 0.02 (0.00-0.031) K/mm3 Absolute Neuts (auto) 5.8 (1.3-6.7) K/mm3 Absolute Nucleated RBC 0.000 (0.0-0.012) K/mm3 Band Neutrophils % Not Reportable Nucleated RBC % 0.0 (0.0-0.2) % Platelet Estimate Adequate (Adequate) Hypochromasia 1+ Poikilocytosis Anisocytosis Ovalocytes Crenated Cell Schistocytes None seen PT 18.2 H (11.1-14.7) Seconds INR 1.5 APTT 33.9 (22.3-36.8) Seconds Sodium 138 (137-145) mmol/L Potassium 3.9 (3.4-5.0) mmol/L Chloride 106 (98-107) mmol/L Carbon Dioxide 23 (22-30) mmol/L Anion Gap 9 (4-12) mmol/L BUN 9 (7-17) mg/dL Creatinine 0.63 L (0.7-1.0) mg/dL Estim Creat Clear Calc 74 ml/min Estimated GFR > 60 (59 - ) Glucose 103 (65-110) mg/dL Lactic Acid (0.7-2.0) mmol/L Calcium 10.0 (8.4-10.2) mg/dL Magnesium (1.6-2.3) mg/dL Iron (37-170) ug/dL TIBC (261-462) ug/dL % Saturation (20-50) % Ferritin (11.1-264) ng/mL Total Bilirubin 0.8 (0.2-1.3) mg/dL AST 50 H (14-36) U/L ALT 31 (6-35) U/L Alkaline Phosphatase 136 H (38-126) U/L Troponin I < 0.012 (0.000-0.034) ng/mL NT-Pro-B Natriuret Pep 3310 H (19.9-100) pg/mL Total Protein 6.7 (6.3-8.2) g/dL Albumin 3.9 (3.5-5.1) g/dL Lipase 38 (23-300) U/L Urine Color Yellow (Yellow) Urine Appearance Clear (Clear) Urine pH 5.5 (5.0-9.0) Ur Specific [place] 1.015 (1.001-1.035) Urine Protein Negative (Negative) mg/dL Urine Glucose (UA) Negative (Negative) mg/dL Urine Ketones Trace H (Negative) mg/dL Ur Blood (Man) Negative (Negative) Urine Nitrate Negative (Negative) Urine Bilirubin Negative (Negative) Urine Urobilinogen 1.0 (<2.0) mg/dL Leukocyte Esterase Rfl Trace H (Negative) CALLUM/UL Urine RBC 0-2 (0-2) /hpf Urine WBC 0-5 (0-3) /hpf Ur Squamous Epith Cells None seen (Few) /hpf Urine Bacteria None seen /hpf Urine Casts 0-2 Influenza A (RT-PCR) Negative (Negative) Influenza B (RT-PCR) Negative (Negative) RSV (RT-PCR) Negative (Negative) SARS-CoV-2 RNA (RT-PCR) Negative (Negative) 05/30/25 05/30/25 05/31/25 Range/Units 11:12 14:37 03:51 WBC 6.6 (4.5-10.0) K/mm3 RBC 3.88 L (4.2-5.4) M/mm3 Hgb 9.0 L (12.0-15.0) g/dL Hct 30.7 L (37.0-47.0) % MCV 79.1 L (80-100) fl MCH 23.2 L (26-34) pg MCHC 29.3 L (32-36) g/dl RDW 17.7 H (11.5-14.5) % Plt Count 299 (150-375) k/mm3 MPV 9.6 (7.4-10.4) fl Immature Gran % (Auto) 0.3 (0-0.5) % Neut % (Auto) 61.1 (45.5-73.1) % Lymph % (Auto) 25.4 (18.3-44.2) % [place] % (Auto) 9.4 H (2.6-8.5) % Eos % (Auto) 2.7 (0-4.4) % Baso % (Auto) 1.1 (0.2-1.2) % Lymph # (Auto) 1.67 (0.9-3.2) K/mm3 [place] # (Auto) 0.6 (0.1-0.6) K/mm3 Eos # (Auto) 0.2 (0-0.3) K/mm3 Baso # (Auto) 0.1 (0.0-0.1) K/mm3 Abs Immat Gran (auto) 0.02 (0.00-0.031) K/mm3 Absolute Neuts (auto) 4.0 (1.3-6.7) K/mm3 Absolute Nucleated RBC 0.000 (0.0-0.012) K/mm3 Band Neutrophils % Not Reportable Nucleated RBC % 0.0 (0.0-0.2) % Platelet Estimate Adequate (Adequate) Hypochromasia 1+ Poikilocytosis 1+ Anisocytosis 1+ Ovalocytes 1+ Crenated Cell 1+ Schistocytes None seen PT (11.1-14.7) Seconds INR APTT (22.3-36.8) Seconds Sodium 137 (137-145) mmol/L Potassium 3.4 (3.4-5.0) mmol/L Chloride 107 (98-107) mmol/L Carbon Dioxide 24 (22-30) mmol/L Anion Gap 6 (4-12) mmol/L BUN 10 (7-17) mg/dL Creatinine 0.61 L (0.7-1.0) mg/dL Estim Creat Clear Calc 74 ml/min Estimated GFR > 60 (59 - ) Glucose 91 (65-110) mg/dL Lactic Acid 0.7 (0.7-2.0) mmol/L Calcium 9.2 (8.4-10.2) mg/dL Magnesium 1.9 (1.6-2.3) mg/dL Iron 22 L (37-170) ug/dL TIBC 417 (261-462) ug/dL % Saturation 5 L (20-50) % Ferritin 8.23 L (11.1-264) ng/mL Total Bilirubin 0.6 (0.2-1.3) mg/dL AST 35 (14-36) U/L ALT 23 (6-35) U/L Alkaline Phosphatase 114 (38-126) U/L Troponin I < 0.012 < 0.012 (0.000-0.034) ng/mL NT-Pro-B Natriuret Pep (19.9-100) pg/mL Total Protein 5.8 L (6.3-8.2) g/dL Albumin 3.3 L (3.5-5.1) g/dL Lipase (23-300) U/L Urine Color (Yellow) Urine Appearance (Clear) Urine pH (5.0-9.0) Ur Specific [place] (1.001-1.035) Urine Protein (Negative) mg/dL Urine Glucose (UA) (Negative) mg/dL Urine Ketones (Negative) mg/dL Ur Blood (Man) (Negative) Urine Nitrate (Negative) Urine Bilirubin (Negative) Urine Urobilinogen (<2.0) mg/dL Leukocyte Esterase Rfl (Negative) CALLUM/UL Urine RBC (0-2) /hpf Urine WBC (0-3) /hpf Ur Squamous Epith Cells (Few) /hpf Urine Bacteria /hpf Urine Casts Influenza A (RT-PCR) (Negative) Influenza B (RT-PCR) (Negative) RSV (RT-PCR) (Negative) SARS-CoV-2 RNA (RT-PCR) (Negative) Imaging Data Radiologist's impression: ITS Impressions Chest X-Ray 05/30/25 08:39 Impression: 1: Cardiomegaly with mild interstitial edema. ECG Data EKG #1: Attestation: I personally reviewed and interpreted this ECG as follows: ECG completion date: 05/30/25 Prior ECG tracings: available for review Interpretation: AFIB WITH RAPID VENTRICULAR RESPONSE AT 1:20 A.M. IN 7 BEATS PER MINUTE, NONSPECIFIC ST T-WAVE ABNORMALITY, BASELINE WANDER, ABNORMAL EKG COMPARED TO EKG ON FEBRUARY 25, 2025 HEART RATE HAS INCREASED. Critical Care Time Critical Care Time Critical Care Time: Yes Total Critical Care Time: 30 Discharge Plan Discharge Clinical Impression: Atrial fibrillation with rapid ventricular response, CHF (congestive heart failure) Patient Disposition: Still a Patient Condition: Stable
--- NOTE | 2025-05-30 08:06 | ECG_ITS ---
Test Date: 2025-05-30 08:06:30 Measurements Intervals [place] Rate: 127 P: 0 LA: 0 QRS: 5 QRSD: 100 T: 60 QT: 331 QTc: 482 Interpretive Statements ATRIAL FIBRILLATION WITH RAPID VENTRICULAR RESPONSE NONSPECIFIC ST & T-WAVE ABNORMALITY- LAT/HIGH LAT LEADS BASELINE WANDER- I, II, III ABNORMAL ECG Compared to ECG 02/25/2025 18:16:13 HEART RATE HAS INCREASED Electronically Signed On 05-30-2025 09:03:25 CDT by David Sanders D.O.
[2025-05-30 08:21] LABS: Hematocrit 35.2 % (37.0-47.0); Hemoglobin 10.3 g/dL (12.0-15.0); Immature Granulocyte Percent A 0.3 % (0-0.5); Lymphocytes Absolute Auto 1.28 K/mm3 (0.9-3.2); Mean Corpuscular HGB Conc 29.3 g/dl (32-36); Mean Corpuscular Hemoglobin 23.0 pg (26-34); Mean Corpuscular Volume 78.7 fl (80-100); Nucleated Red Blood Cells Absolute Auto 0.000 K/mm3 (0.0-0.012); Nucleated Red Blood Cells Perc 0.0 % (0.0-0.2); Platelet Count Result 355 k/mm3 (150-375); Red Blood Count 4.47 M/mm3 (4.2-5.4); White Blood Count 7.8 K/mm3 (4.5-10.0)
--- OUTSIDE RECORDS SUMMARY | 2025-05-30 08:32 | XMS_ITS | Encounter Summary ---
Author Organization [facility] Address [address] [facility] [address] [place] [address] Phone Care Team Providers Care Emergency Preparedness Manager Name Role Phone Nan Blair Primary Care Provider [phone] Jorge Jefferson MD Unavailable + [phone] Lizzie Collins MD Unavailable [phone] Freeman Chung MD Unavailable [phone] Maribel Andrade MD Unavailable [phone] Guy Rosen MD Unavailable Miscellaneous, Not In File Primary Care Provider Unavailable Nan Blair Primary Care Provider [phone] Encounter Details Date Type Department Care Team [...] on file Legal Sex Female 1:09 AM GLEASON GEAR GENERATOR Gender Identity Female 10/05/2020 10:15 AM GLEASON GEAR GENERATOR Sexual Orientation Straight 10/05/2020 10 :15 AM GLEASON GEAR GENERATOR Occupation Industry Job Start Date Job End [...] on filedocumented in this encounter Care Teams Emergency Preparedness Manager Relationship Specialty Start Date End Date Nan Blair PA [address] [place] [address] PCP - General Physician Pest Control Service Sales Agent 03/09/19 05/03/22 Miscellaneous, Not In File PCP - General 05/04/22 07/02/22 Nan Blair PA [address] [place] [address] PCP - General Family Medicine 07/03/22 Jorge Jefferson MD [address] [place] [address] Consulting Physician Family Medicine 03/09/19 Lizzie Collins MD [address] [address] Patient Services Rep Cardiology 05/18/19 Freeman Chung MD [address] [place] [address] Referring Physician Geriatric Psychiatry 06/09/20 Maribel Andrade MD [address] [address] Consulting Physician Anesthesiology 12/31/20 Guy Rosen MD [address] [place] [address] Psychiatry 01/11/22 documented as of this encounter
--- OUTSIDE RECORDS SUMMARY | 2025-05-30 08:32 | XMS_ITS | Encounter Summary ---
Author Organization [facility] Facility Care Team Providers Care Cattle Sprayer Name Role Phone Nan Blair Primary Care Provider [phone] Jorge Jefferson MD Primary Care Provid er Nan Blair Unavailable [phone] Nan Blair Primary Care Provider [phone] Jorge Jefferson MD Unavailable + [phone] Lizzie Collins MD Unavailable [phone] Freeman Chung MD Unavailable [phone] Maribel Andrade MD Unavailable [phone] Guy Rosen MD Unavailable Miscellaneous, Not In File Primary Care Provider Unavailable Nan Blair Primary Care Provider [phone] Encounter Details Date Type Department Care Team (Latest Contact Info) Description 08/15/2017 Orders Only [facility] CLINCON[facility] ProviderJulieta MD [address] [place] [id number] Social History Tobacco Use Types Packs/Day Years Used Date Smoking Tobacco: Never Assessed Comments Unknown Sex and Gender Information Value Date Recorded Sex Assigned at Not on file Legal Sex Female 1:09 AM SHIPWRIGHT Gender Identity Female 10/05/2020 10:15 AM SHIPWRIGHT Sexual Orientation Straight 10/05/2020 10 :15 AM SHIPWRIGHT documented as of this encounter Plan of Treatment Not on file documented as of this encounter Procedures Procedure Name Priority Date/Time Associated Diagnosis Comments CARDIOLOGY REPORT 08/15/2017 12: 00 AM SHIPWRIGHT documented in this encounter Results * CARDIOLOGY REPORT (08/15/2017 12:00 AM SHIPWRIGHT) Anatomical Region Laterality Modality Other Narrative 08/15/2017 12:00 AM SHIPWRIGHT Ordered by an unspecified provider. us Historical Provider [facility] Final Result documented in this encounter Visit Diagnoses Not on filedocumented in this encounter Care Teams Cattle Sprayer Relationship Specialty Start Date End Date Nan Blair PA [address] [place] [address] PCP - General Physician Antenna Installer 04/28/18 02/01/19 Jorge Jefferson MD [address] [place] [address] PCP - General Family Medicine 02/02/19 03/08/19 Nan Blair PA [address] [place] [address] PCP - General Physician Antenna Installer 03/09/19 05/03/22 Miscellaneous, Not In File PCP - General 05/04/22 07/02/22 Nan Blair PA [address] [place] [address] PCP - General Family Medicine 07/03/22 Nan Blair PA [address] [place] [address] Physician Antenna Installer Physician Antenna Installer 02/02/19 9 Jorge Jefferson MD [address] [place] [address] Consulting Physician Family Medicine 03/09/19 Lizzie Collins MD [address] [address] Teaching Fellow Cardiology 05/18/19 Freeman Chung MD [address] [place] [address] Referring Physician Geriatric Psychiatry 06/09/20 Maribel Andrade MD [facility] [address] [address] Consulting Physician Anesthesiology 12/31/20 Guy Rosen MD [address] [place] [address] Psychiatry 01/11/22 documented as of this encounter
--- OUTSIDE RECORDS SUMMARY | 2025-05-30 08:32 | XMS_ITS | Clinical Summary ---
Author Organization [facility] Address [address] [place] [address] Care Team Providers Care Retail Parts Pro Name Role Phone Nan Blair Primary Care Provider [phone] Allergies Active Allergy Reactions Criticality Noted Date Comments Codeine Nausea and Vomiting,Other (see comment) Low 03/16/2016 Spaced out and sick to stomach [place] Other (see comment) Low 02/02/2019 Severe reaction-Kidney [...] October 2019 Bipolar 1 disorder, depressed, moderate ([facility]) 11/06/2017 Overview (03/17/2020): Last Assessment & Plan: Patient has not made appointment with a psychiatrist. Patient reports she is feeling stable on her current meds. I encouraged patient to make a Psychiatry appointment Bipolar 1 disorder, depressed, moderate ([facility]) 10/30/2017 Mild cognitive impairment with memory loss [...] Last Assessment & Plan: stable Atrial flutter ([facility]) 02/14/2016 Overview (03/17/2020): Last Assessment & Plan: [...] to complete this topic Insurance MED REPLACE [facility] MEDICARE MED REPLACE [facility] MEDICARE Advance Directives Documents on File Type Date Recorded Patient Sand Mill Operator Expl anation Advance Directives and Living Will 11/05/2017 9:06 AM POWER OF SMALL WIND ENERGY INSTALLER Advance Directives and Living Will 08/17/2013 ADVANCE DIRECTIVE * DNR (Latest Code Status on File) Date Activated Date Inactivated Comments 03/17/2020 9:43 AM 03/18/2020 1:18 PM * Full Code Date Activated Date Inactivated Comments 10/29/2017 4:12 PM 11/04/2017 4:02 PM Care Teams Retail Parts Pro Relationship Specialty Start Date End Date Nan Blair PA [address] [place] [address] PCP - General 04/04/14
--- OUTSIDE RECORDS SUMMARY | 2025-05-30 08:32 | XMS_ITS | Encounter Summary ---
Author Organization [facility] Address [address] [facility] [address] [place] [address] Phone Care Team Providers Care Barrer And Tacker Name Role Phone Nan Blair Primary Care Provider [phone] Jorge Jefferson MD Unavailable [phone] Lizzie Collins MD Unavailable [phone] Freeman Chung MD Unavailable [phone] Maribel Andrade MD Unavailable [phone] Guy Rosen MD Unavailable Miscellaneous, Not In File Primary Care Provider Unavailable Nan Blair Primary Care Provider [phone] Encounter Details Date Type Department Care Team [...] on file Legal Sex Female 1:09 AM AIRPORT TRAFFIC CONTROLLER Gender Identity Female 10/05/2020 10:15 AM AIRPORT TRAFFIC CONTROLLER Sexual Orientation Straight 10/05/2020 10 :15 AM AIRPORT TRAFFIC CONTROLLER Occupation Industry Job Start Date Job End [...] on filedocumented in this encounter Care Teams Barrer And Tacker Relationship Specialty Start Date End Date Nan Blair PA [address] [place] [address] PCP - General Physician Foil Stamp Operator 03/09/19 05/03/22 Miscellaneous, Not In File PCP - General 05/04/22 07/02/22 Nan Blair PA [address] [place] [address] PCP - General Family Medicine 07/03/22 Jorge Jefferson MD [address] [place] [address] Consulting Physician Family Medicine 03/09/19 Lizzie Collins MD [address] [facility] [place] [address] Furnace Combustion Analyst Cardiology 05/18/19 Freeman Chung MD [address] [place] [address] Referring Physician Geriatric Psychiatry 06/09/20 Maribel Andrade MD [address] [facility] [address] [place] [address] Consulting Physician Anesthesiology 12/31/20 Guy Rosen MD [address] [place] [address] Psychiatry 01/11/22 documented as of this encounter
--- OUTSIDE RECORDS SUMMARY | 2025-05-30 08:32 | XMS_ITS | Clinical Summary ---
Author Organization [facility] Address [address] [place] [address] Care Team Providers Care Fish Hatchery Man Name Role Phone Jorge Jefferson MD Unavailable [phone] Lizzie Collins MD Unavailable [phone] Freeman Chung MD Unavailable [phone] Maribel Andrade MD Unavailable [phone] Guy Rosen MD Unavailable Nan Blair Primary Care Provider [phone] Allergies Active Allergy Reactions Criticality Noted Date Comments Amoxicillin Unknown 02/02/2019 Codeine Other (See comments),Dizziness,Naus ea And Vomiting,Unknown Low 03/16/2016 Spaced out and sick to stomach Spaced out and sick to stomach confusion, n/v [place] Other (See comments),Unknown Low 02/02/2019 Severe reaction-Kidney [...] 50 mg tabletIndicatio ns:Alcohol use disorder, moderate Take 1 tablet (50 mg total) by [...] 11/27/2024 Assessment & Plan (11/27/2024 1:17 PM PACKAGE DELIVERY ROOM SERVICE RUNNER): Patient had a seizure 1 year ago. [...] 10/12/2020 Assessment & Plan (11/27/2024 10:55 AM PACKAGE DELIVERY ROOM SERVICE RUNNER): Progressing. Patient will continue Namenda and Aricept. [...] ASL Assessment & Plan (11/15/2021 10:29 AM PACKAGE DELIVERY ROOM SERVICE RUNNER): Worsening. Patient will continue current meds. Followed [...] is not addictive. Agree with move to [facility]. Continue to work with Dr. Andrade, counselor and cognitive stimulation therapist. Assessment & Plan (10/12/2020 11:27 AM PACKAGE DELIVERY ROOM SERVICE RUNNER): Followed by neurology, unchanged Class 1 obesity due to exces s calories with serious comorbidity and body mass index (BMI) of 31.0 to 31.9 in adult 08/26/2019 Assessment & Plan (05/07/2023 2:29 PM CDT): Reviewed BMI Focus on healthy diet options Work on healthy changes Assessment & Plan (11/15/2021 10:28 AM PACKAGE DELIVERY ROOM SERVICE RUNNER): Uncontrolled. Goal of BMI is less than [...] month Assessment & Plan (10/12/2020 11:26 AM PACKAGE DELIVERY ROOM SERVICE RUNNER): Educated patient on healthy diet/exercise plan. Exercise [...] sugar. Assessment & Plan (08/26/2019 1:23 PM PACKAGE DELIVERY ROOM SERVICE RUNNER): Educated patient on healthy diet/exercise plan. Exercise [...] 05/25/2020 Assessment & Plan (11/15/2021 10:28 AM PACKAGE DELIVERY ROOM SERVICE RUNNER): PMH/MHA: 11/15/2021 Last pap:2013 Last mammogram: 02/04/2018 (requested report) Last dexa:02/04/2018, ordered Last colonoscopy/cologuard:08/2015, 12/16/2018 repeat 2023 Last Hep C:04/2017 Last tdap:04/08/2013 Last Prevnar/pneumovax: 05/18/2015 (13) 07/18/2011 (23) Last Shingrix: (zoster 10/07/2012) 10/16/2018, 07/03/2018 Last eye exam: 05/25/2020 Assessment & Plan (10/12/2020 11:27 AM PACKAGE DELIVERY ROOM SERVICE RUNNER): PMH/MHA: 10/12/2020 Last pap:2013 Last mammogram: 02/04/2018 Last dexa:02/04/2018 Last colonoscopy/cologuard:08/2015, 12/16/2018 repeat 2023 Last Hep C:04/2017 Last tdap:04/08/2013 Last Prevnar/pneumovax: 05/18/2015 (13) 07/18/2011 (23) Last Shingrix: (zoster 10/07/2012) 10/16/2018, 07/03/2018 Last eye exam: 05/25/2020 Assessment & Plan (08/26/2019 1:10 PM PACKAGE DELIVERY ROOM SERVICE RUNNER): PMH/MHA: 08/26/2019 Last pap:2013 Last mammogram: 02/04/2018 Last dexa:02/04/2018 Last colonoscopy/cologuard:08/2015, 12/16/2018 repeat 2023 Last Hep C:04/2017 Last tdap:04/08/2013 Last Prevnar/pneumovax: 05/18/2015 (13) 07/18/2011 (23) Last Shingrix: (zoster 10/07/2012) 10/16/2018, 07/03/2018 Last eye exam: due Recurrent major depressive disorder, in partial remission 10/13/2018 Assessment & Plan (05/07/2023 3:58 PM CDT): Chronic. Continue follow-up psychiatry. Assessment & Plan (11/15/2021 10:29 AM PACKAGE DELIVERY ROOM SERVICE RUNNER): Stable continue meds Assessment & Plan (10/12/2020 11:28 AM PACKAGE DELIVERY ROOM SERVICE RUNNER): Stable, followed by Psychiatry Assessment & Plan (05/23/2020 3:09 PM CDT): Strongly recommend consistent care and follow-up with [facility] Psychiatry to evaluate and treat mood [...] psychiatry Assessment & Plan (10/16/2019 1:12 PM PACKAGE DELIVERY ROOM SERVICE RUNNER): Uncontrolled. Assessment & Plan (10/14/2019 1:02 PM PACKAGE DELIVERY ROOM SERVICE RUNNER): Uncontrolled. I really feel like pt is very lonely and she needs daily interaction with other people. Encouraged pt to consider a fci center to open her world to new hobbies, interactions with other. Need referral to psychiatrist. Need to see counselor within the next 2 wks. Memory issues may be related to depression. Assessment & Plan (08/26/2019 1:24 PM PACKAGE DELIVERY ROOM SERVICE RUNNER): Referral to psychiatrist Generalized anxiety disorder 03/12/2018 Assessment & Plan (05/07/2023 3:57 PM CDT): Chronic. Continue follow-up with psychiatrist. Assessment & Plan (11/15/2021 10:28 AM PACKAGE DELIVERY ROOM SERVICE RUNNER): Stable, continue current meds Assessment & Plan (10/12/2020 11:26 AM PACKAGE DELIVERY ROOM SERVICE RUNNER): Stable followed by Psychiatry Assessment & Plan (02/19/2020 3:30 PM CDT): Stable Assessment & Plan (11/18/2019 4:05 PM PACKAGE DELIVERY ROOM SERVICE RUNNER): Patient will hold lorazepam at this time. She is not having any anxiety Assessment & Plan (10/14/2019 1:03 PM PACKAGE DELIVERY ROOM SERVICE RUNNER): Referral psychiatrist Assessment & Plan (08/26/2019 1:22 PM PACKAGE DELIVERY ROOM SERVICE RUNNER): Stable Bipolar 1 disorder, depressed, moderate 11/06/19 18 Assessment & Plan (11/27/2024 1:17 PM PACKAGE DELIVERY ROOM SERVICE RUNNER): Chronic, stable, patient will continue her medications for Alzheimer's to include Aricept and Namenda. No additional meds needed at this time Assessment & Plan (05/07/2023 3:57 PM CDT): Chronic. Continue follow-up with psychiatrist. Assessment & Plan (11/15/2021 10:27 AM PACKAGE DELIVERY ROOM SERVICE RUNNER): Stable Assessment & Plan (10/12/2020 11:26 AM PACKAGE DELIVERY ROOM SERVICE RUNNER): Stable followed by Psychiatry Assessment & Plan (05/02/2020 2:11 PM CDT): Follow with psychiatry Assessment & Plan (02/19/2020 3:30 PM CDT): Patient has not made appointment with a psychiatrist. Patient reports she is feeling stable on her current meds. I encouraged patient to make a Psychiatry appointment Assessment & Plan (11/18/2019 4:05 PM PACKAGE DELIVERY ROOM SERVICE RUNNER): Uncontrolled. Increase Wellbutrin to 300 mg. Patient needs to see a psychiatrist. Patient given a list of psychiatrist in the area. I spoke with her lela not too long ago about patient needing to see the psychiatrist and also patient needing to consider moving into some type of fci center to have interactions with other people Assessment & Plan (10/16/2019 3:21 PM PACKAGE DELIVERY ROOM SERVICE RUNNER): Uncontrolled. Pt does not have a psychiatrist [...] consider looking into inpatient psychiatric care at [facility] in [place]. Patient's son will be contacting his brother and they will be deciding what to do in the next day or so. Patient will be monitor closely over the weekend by Papo. Assessment & Plan (10/14/2019 1:03 PM PACKAGE DELIVERY ROOM SERVICE RUNNER): Uncontrolled, referral to psychiatrist. Assessment & Plan (08/26/2019 1:22 PM PACKAGE DELIVERY ROOM SERVICE RUNNER): Depressed, need to see psychiatry for medication adjustment. Essential (primary) hypertension 08/15/2017 Assessment & Plan (11/27/2024 2:03 PM PACKAGE DELIVERY ROOM SERVICE RUNNER): Episodes of hypotension. We are going to hold amlodipine. We are going to have Dayna [facility] check her blood pressure daily and report numbers in 1 week. Assessment & Plan (05/07/2023 3:57 PM CDT): Chronic and controlled without medication. Continue to monitor. Assessment & Plan (11/15/2021 10:28 AM PACKAGE DELIVERY ROOM SERVICE RUNNER): Stable, continue current meds Assessment & Plan (10/12/2020 11:26 AM PACKAGE DELIVERY ROOM SERVICE RUNNER): Stable continue meds Assessment & Plan (02/19/2020 3:30 PM CDT): Stable Assessment & Plan (11/18/2019 4:05 PM PACKAGE DELIVERY ROOM SERVICE RUNNER): Stable continue meds Assessment & Plan (08/26/2019 1:22 PM PACKAGE DELIVERY ROOM SERVICE RUNNER): Stable, continue current meds Primary osteoarthritis of right knee 08/15/2017 Assessment & Plan (05/07/2023 2:31 PM CDT): Continue Tylenol as needed for pain. Assessment & Plan (11/15/2021 10:29 AM PACKAGE DELIVERY ROOM SERVICE RUNNER): Patient takes Tylenol for pain. Assessment & Plan (10/12/2020 11:28 AM PACKAGE DELIVERY ROOM SERVICE RUNNER): Uncontrolled. Patient will hopefully get to start physical therapy soon once her insurance has been reinstated. Patient may also need to see Ortho in the near future Assessment & Plan (08/26/2019 1:24 PM PACKAGE DELIVERY ROOM SERVICE RUNNER): stable Unsteady gait 11/09/2016 Assessment & Plan (05/07/2023 3:58 PM CDT): Completed physical therapy. No recent falls. Assessment & Plan (11/15/2021 10:29 AM PACKAGE DELIVERY ROOM SERVICE RUNNER): Recommend physical therapy. Recommend using a cane Assessment & Plan (10/12/2020 11:29 AM PACKAGE DELIVERY ROOM SERVICE RUNNER): Uncontrolled. Patient is doing okay with her [...] daily. Assessment & Plan (08/26/2019 1:24 PM PACKAGE DELIVERY ROOM SERVICE RUNNER): Use cane at all times, Recommend PT. Pt will consider that. Assessment & Plan (02/02/2019 11:25 AM CDT): Order physical therapy Glucose intolerance (impaired glucose tolerance) 09/03/2016 Assessment & Plan (05/07/2023 3:57 PM CDT): Diet controlled. Labs ordered today. Assessment & Plan (11/15/2021 10:28 AM PACKAGE DELIVERY ROOM SERVICE RUNNER): Diet controlled, requested lab results Assessment & Plan (10/12/2020 11:27 AM PACKAGE DELIVERY ROOM SERVICE RUNNER): Stable, diet controlled Assessment & Plan (02/19/2020 3:30 PM CDT): Diet controlled check labs Assessment & Plan (08/26/2019 1:23 PM PACKAGE DELIVERY ROOM SERVICE RUNNER): Diet controlled, due for labs Obstructive sleep apnea 08/14/2016 Assessment & Plan (05/07/2023 2:30 PM CDT): Not on CPAP. Assessment & Plan (11/15/2021 10:29 AM PACKAGE DELIVERY ROOM SERVICE RUNNER): Stable Assessment & Plan (10/12/2020 11:28 AM PACKAGE DELIVERY ROOM SERVICE RUNNER): Stable, no CPAP machine at this time Assessment & Plan (08/26/2019 1:13 PM PACKAGE DELIVERY ROOM SERVICE RUNNER): No cpap machine Other allergic rhinitis 08/14/2016 Assessment & Plan (05/07/2023 2:30 PM CDT): Continue current management. Assessment & Plan (11/15/2021 10:29 AM PACKAGE DELIVERY ROOM SERVICE RUNNER): Stable Assessment & Plan (10/12/2020 11:28 AM PACKAGE DELIVERY ROOM SERVICE RUNNER): Stable p.r.n. meds Assessment & Plan (08/26/2019 1:23 PM PACKAGE DELIVERY ROOM SERVICE RUNNER): stable Atrial flutter 02/14/2016 Overview (02/08/2025): Last Assessment & Plan: Stable Last Assessment & Plan: Stable Other specified hypothyroidism 12/30/2015 Assessment & Plan (05/07/2023 2:30 PM CDT): Continue current dose of levothyroxine. Due for TSH. Assessment & Plan (11/15/2021 10:29 AM PACKAGE DELIVERY ROOM SERVICE RUNNER): Stable, continue meds, requested lab Assessment & Plan (10/12/2020 11:28 AM PACKAGE DELIVERY ROOM SERVICE RUNNER): Stable continue meds Assessment & Plan (02/19/2020 3:31 PM CDT): Check labs Assessment & Plan (08/26/2019 1:24 PM PACKAGE DELIVERY ROOM SERVICE RUNNER): Stable, check labs Mixed hyperlipidemia 12/30/2015 Assessment & Plan (05/07/2023 2:30 PM CDT): Diet controlled. Will continue to monitor lipid panel. Assessment & Plan (11/15/2021 10:29 AM PACKAGE DELIVERY ROOM SERVICE RUNNER): Diet controlled. Requested lab Assessment & Plan (10/12/2020 11:28 AM PACKAGE DELIVERY ROOM SERVICE RUNNER): Stable, patient is not on meds at this time Assessment & Plan (02/19/2020 3:31 PM CDT): Check labs Assessment & Plan (08/26/2019 1:23 PM PACKAGE DELIVERY ROOM SERVICE RUNNER): Check labs Vitamin D deficiency 12/30/2015 Assessment & Plan (05/07/2023 2:31 PM CDT): Continue vitamin-D supplement. Assessment & Plan (11/15/2021 10:30 AM PACKAGE DELIVERY ROOM SERVICE RUNNER): Stable continue vitamin Assessment & Plan (10/12/2020 11:29 AM PACKAGE DELIVERY ROOM SERVICE RUNNER): Stable continue vitamin Assessment & Plan (02/19/2020 3:31 PM CDT): Check labs Assessment & Plan (08/26/2019 1:25 PM PACKAGE DELIVERY ROOM SERVICE RUNNER): Continue vit d Resolved Problems Problem Noted Date Diagnosed Date Resolved Date Unspecified mood (affective) disorder ([facility]) 03/21/2020 11/15/2021 Assessment & Plan (10/12/2020 11:29 AM PACKAGE DELIVERY ROOM SERVICE RUNNER): Stable followed by Psychiatry Assessment & Plan [...] 2 Assessment & Plan (10/12/2020 11:28 AM PACKAGE DELIVERY ROOM SERVICE RUNNER): Stable continue meds Assessment & Plan (11/18/2019 4:05 PM PACKAGE DELIVERY ROOM SERVICE RUNNER): With patient's change in urinary symptoms I would like to hold the VESIcare and see how she does. UA in office today was negative Assessment & Plan (08/26/2019 1:24 PM PACKAGE DELIVERY ROOM SERVICE RUNNER): Stable, continue meds Mild neurocognitive disorder 12/20/2017 [...] 2019 Assessment & Plan (10/14/2019 1:03 PM PACKAGE DELIVERY ROOM SERVICE RUNNER): Referral to memory clinic at [facility]. Scores show mild decline. Assessment & Plan (08/26/2019 1:23 PM PACKAGE DELIVERY ROOM SERVICE RUNNER): Need to rtc for memory testing. 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 10/12/2020 Assessment & Plan (08/26/2019 1:25 PM PACKAGE DELIVERY ROOM SERVICE RUNNER): Stable History of rhabdomyolysis 08/14/2016 Atrial flutter ([facility]/HCC) 02/14/201606/2022 Assessment & Plan (10/12/2020 11:26 AM PACKAGE DELIVERY ROOM SERVICE RUNNER): Stable Assessment & Plan (02/19/2020 3:30 PM CDT): Stable Assessment & Plan (08/26/2019 1:22 PM PACKAGE DELIVERY ROOM SERVICE RUNNER): Stable followed by cardiology Immunizations Immunization Administration [...] on file Legal Sex Female 1:09 AM PACKAGE DELIVERY ROOM SERVICE RUNNER Gender Identity Female 10/05/2020 10:15 AM PACKAGE DELIVERY ROOM SERVICE RUNNER Sexual Orientation Straight 10/05/2020 10 :15 AM PACKAGE DELIVERY ROOM SERVICE RUNNER 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 Not on file Not on file Obstetrics History Last Filed Vital Signs Vital Sign Reading Time Taken Comments Blood Pressure 116/78 02/24/2025 8:31 AM CDT Pulse 73 02/24/2025 8:31 AM CDT Temperature 36.8 C (98.3 F) 01/27/2025 1:38 PM CDT Respiratory Rate 16 11/27/2024 10:05 AM PACKAGE DELIVERY ROOM SERVICE RUNNER Oxygen Saturation 95% 02/24/2025 8:31 AM CDT [...] 06/2022, 10/12/2020, Additional history exists Covid-19 Vaccine (6 2023-2 5 season) 2024 09/13/2023, 04/13/2022, 08/01/2021, Additional history exists Influenza Vaccine (#1) 2025 , 07/09/2023, 07/07/2022, Additional history exists Depression Screening 11/27/2025 11/27/2024, [...] Discontinued 05/07/2022, 02/04/2018, 02/04/2018, Additional history exists Procedures Procedure Name Priority Date/Time Associated Diagnosis Comments DEXA AXIAL SKELETON BONE DENSITY 1 OR MORE SITES Schedule Routine, Read Routine (OP Routine) 05/07/2022 12:52 PM CDT Encounter for screening for osteoporosis Menopause present COLONOSCOPY Routine 12/16/2018 MAMMOGRAPHY Routine 02/04/2018 HEPATITIS C ANTIBODY Routine 04/24/2017 11:05 AM CDT from Last 3 Months or Most Recently Relevant to Health Maintenance Results * Dexa Axial Skeleton Bone Density 1 or 2 Site (05/07/2022 12:52 PM CDT) Anatomical Region Laterality Modality Body N/A Mammography 05/07/2022 1:53 PM CDT Narrative 05/07/2022 1:54 PM CDT EXAM DESCRIPTION: DEXA AXIAL SKELETON BONE DENSITY 1 OR MORE SITES REASON FOR STUDY: 71 y/o year old F with given history of screening. Bitumastic Applier/Model: Seclore A ([id number]/N [id number]) CLINICAL INFORMATION: Current height: 64 inches Maximum [...] Lanette Gloria M.D. TB: TB Report ID: [id number] Reading Location: [id number] Procedure Note MoonLanette MD - 05/07/2022 EXAM DESCRIPTION: DEXA AXIAL SKELETON BONE DENSITY 1 OR MORE SITES REASON FOR STUDY: 71 y/o year old F with given history ofscreening. Bitumastic Applier/Model: Seclore A ([id number]/N [id number]) CLINICAL INFORMATION: Current height: 64 inches Maximum [...] Lanette Gloria M.D. TB: TB Report ID: [id number] Reading Location: [place] [address] Nan [facility]LEY IMG DXA PROCEDURES Final Resul t * COLONOSCOPY (12/16/2018) Colonoscopy Abnormal Historical Provider MD HEALTH MAINTENANCE Final Result * MAMMOGRAPHY (02/04/2018) Mammogram Normal Historical Provider MD HEALTH MAINTENANCE Final Result * Hepatitis C antibody (04/24/2017 11:05 AM CDT) Pathologist [facility] Hep C Ab NONREACT NONREACTIVE 04/24/2017 8:34 PM CDT [facility] HISTORICAL RESULTS Comment: Siemens CentaurXP using NIKUNJ [...] - GENERAL ORD ERABLES Final Result [facility] HISTORICAL RESULTS from Last 3 Months or Most Recently Relevant to Health Maintenance Insurance [place] [id number] MEDICARE [facility] MEDICARE ADVANTAGE [facility] MEDICARE ADVANTAGE [place] [id number] [facility] MEDICARE ADVANTAGE Advance Directives For more information, please contact: [phone] Documents on File Type Date Recorded Patient Channel Director Expl anation ADVANCE DIRECTIVE 12/07/2020 3:24 PM DNR ADVANCE DIRECTIVE 09/25/2013 12:00 AM POW ER OF TRAINING AND DEVELOPMENT DIRECTOR FINANCIAL/MEDICAL Care Teams Fish Hatchery Man Relationship Specialty Start Date End Date Nan Blair PA [address] [place] [address] PCP - General Family Medicine 07/03/22 Jorge Jefferson MD [address] [place] [address] Consulting Physician Family Medicine 03/09/19 Lizzie Collins MD [address] [facility] [address] [address] Assistant Softball Coach Cardiology 05/18/19 Freeman Chung MD [address] [place] [address] Referring Physician Geriatric Psychiatry 06/09/20 Maribel Andrade MD [address] [facility] [address] [place] [address] Consulting Physician Anesthesiology 12/31/20 Guy Rosen MD [address] [place] [address] Psychiatry 01/11/22
--- OUTSIDE RECORDS SUMMARY | 2025-05-30 08:32 | XMS_ITS | Encounter Summary ---
Author Organization [facility] Address [address] [place] [address] Care Team Providers Care Tire Recapper Name Role Phone Jorge Jefferson MD Unavailable [phone] Lizzie Collins MD Unavailable [phone] Freeman Chung MD Unavailable [phone] Maribel Andrade MD Unavailable [phone] Guy Rosen MD Unavailable Nan Blair Primary Care Provider [phone] Encounter Details Date Type Department Care Team (Late st Contact Info) Description 01/31/2025 Orders Only [facility] Health Information Management [address] [place] [id number] Scanning, Provider Social History Tobacco Use Types [...] on file Legal Sex Female 1:09 AM RESUME SPECIALIST Gender Identity Female 10/05/2020 10:15 AM RESUME SPECIALIST Sexual Orientation Straight 10/05/2020 10 :15 AM RESUME SPECIALIST 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 Not on file Not on file documented as of this encounter Plan of Treatment Not on file documented as of this encounter Procedures Procedure Name Priority Date/Time Associated Diagnosis Comments SCAN - LABS 01/31/2025 documented in this encounter Results * SCAN - LABS (01/31/2025) Provider Scanning Final Result documented in this encounter Visit Diagnoses Not on filedocumented in this encounter Care Teams Tire Recapper Relationship Specialty Start Date End Date Nan Blair PA [address] [place] [address] PCP - General Family Medicine 07/03/22 Jorge Jefferson MD [address] [place] [address] Consulting Physician Family Medicine 03/09/19 Lizzie Collins MD [address] [address] [employer] Officer Cardiology 05/18/19 Freeman Chung MD [address] [place] [address] Referring Physician Geriatric Psychiatry 06/09/20 Maribel Andrade MD [address] [address] Consulting Physician Anesthesiology 12/31/20 Guy Rosen MD [address] [place] [address] Psychiatry 01/11/22 documented as of this encounter
--- OUTSIDE RECORDS SUMMARY | 2025-05-30 08:32 | XMS_ITS | Encounter Summary ---
Author Organization [facility] Address [address] [facility] [address] [place] [address] Phone Care Team Providers Care Registered Nurse Behavioral Health Name Role Phone Nan Blair Primary Care Provider [phone] Jorge Jefferson MD Primary Care Provid er Nan Blair Unavailable [phone] Nan Blair Primary Care Provider [phone] Jorge Jefferson MD Unavailable [phone] Lizzie Collins MD Unavailable [phone] Freeman Chung MD Unavailable [phone] Maribel Andrade MD Unavailable [phone] Guy Rosen MD Unavailable Miscellaneous, Not In File Primary Care Provider Unavailable Nan Blair Primary Care Provider [phone] Encounter Details Date Type Department Care Team (Latest Contact Info) Description 11/01/2017 Orders Only [facility] [place] Scanning, Provider Social History Tobacco Use Types Packs/Day Years Used Date Smoking Tobacco: Never Assessed Comments Unknown Sex and Gender Information Value Date Recorded Sex Assigned at Not on file Legal Sex Female 1:09 AM HEALTH SCREENER Gender Identity Female 10/05/2020 10:15 AM HEALTH SCREENER Sexual Orientation Straight 10/05/2020 10 :15 AM HEALTH SCREENER documented as of this encounter Plan of Treatment Not on file documented as of this encounter Procedures Procedure Name Priority Date/Time Associated Diagnosis Comments SCAN - RADIOLOGY/IMAGING 11/01/2017 documented in this encounter Results * SCAN - RADIOLOGY/IMAGING (11/01/2017) Anatomical Region Laterality Modality Other us Provider Scanning Final Result documented in this encounter Visit Diagnoses Not on filedocumented in this encounter Care Teams Registered Nurse Behavioral Health Relationship Specialty Start Date End Date Nan Blair PA [address] [place] [address] PCP - General Physician Retail Sales Director 04/28/18 02/01/19 Jorge Jefferson MD [address] [place] [address] PCP - General Family Medicine 02/02/19 03/08/19 Nan Blair PA [address] [place] [address] PCP - General Physician Retail Sales Director 03/09/19 05/03/22 Miscellaneous, Not In File PCP - General 05/04/22 07/02/22 Nan Blair PA [address] [place] [address] PCP - General Family Medicine 07/03/22 Nan Blair PA [address] [place] [address] Physician Retail Sales Director Physician Retail Sales Director 02/02/19 9 Jorge Jefferson MD [address] [place] [address] Consulting Physician Family Medicine 03/09/19 Lizzie Collins MD [address] [address] Cloth Tester Quality Cardiology 05/18/19 Freeman Chung MD [address] [place] [address] Referring Physician Geriatric Psychiatry 06/09/20 Maribel Andrade MD [address] [facility] [address] [address] [address] Consulting Physician Anesthesiology 12/31/20 Guy Rosen MD [address] [place] [address] Psychiatry 01/11/22 documented as of this encounter
--- OUTSIDE RECORDS SUMMARY | 2025-05-30 08:32 | XMS_ITS | Clinical Summary ---
Author Organization [facility] Address [address] [place] [address] Care Team Providers Care Shoe Ironer Name Role Phone Nan Blair Primary Care Provider [phone] Source Comments [facility],non-owned Affiliates and Associated Physician Practices is amultiple site organization consisting of ambulatory clinics and hospital sitesin [place], [place], [place] and [place]. This disclosure is being madepursuant to the Care Everywhere program and may not contain all information available regarding this patient. Last updated 18.[facility] Allergies Active Allergy Reactions Criticality Noted Date Comments Codeine Dizziness 03/19/2020 Richey Other Low 02/02/2019 Severe reaction-Kidney failure Severe [...] once daily 100 tablet 3 03/13/2022 Active albuterol HFA (Proventil; Ventolin; Proair) 108 (90 Base) MCG/ACT inhaler Inhale 2 (two) puffs by mouth every 6 hours as needed Active Eliquis 5 MG tablet Take 1 (one) tablet by mouth 2 times daily 02/22/2025 Active Aspirin Low Dose 81 MG chew tablet Take 1 (one) tablet by mouth once 03/22/2025 Active Matzim LA 240 MG tablet Take 1 (one) tablet by mouth once daily 02/22/2025 Active lamoTRIgine (LaMICtal) 25 MG tablet Take 2 (two) tablets by mouth 2 times daily 02/11/2025 Active naltrexone (Revia) 50 MG tablet Take 1 (one) tablet by mouth once daily 07/29/2024 Active donepezil (Aricept) 10 MG tabletIndicatio ns:Alzheimer's Disease Take 1 (one) tablet by mouth once daily Reasons: Alzheimer's Disease 90 tablet 5 03/24/2025 Active memantine (Namenda) 10 MG tabletIndicatio ns:Alzheimer's Disease Take 1 (one) tablet by mouth 2 times daily Reasons: Alzheimer's Disease 180 tablet 5 03/24/2025 Active Active Problems Problem Noted Date Diagnosed [...] on file 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 Gender Identity Not on file Sexual Orientation [...] Td or Tdap) 04/08/2023 04/08/2013 COVID-19 VACCINE (1 - 2024-25 season) 2024 MEDICARE AWV CALENDAR YEAR 2024 Respiratory Syncytial Virus (RSV) Vaccine Pt: or over 60 yrs (1 - 1-dose 75+ series) 2024 INFLUENZA VACCINE (#1) 2025 , 07/07/2022, 08/01/2021, Additional history exists ZOSTER VACCINE Completed 10/16/2018, 06/08, 10/07/2012 PNEUMOCOCCAL VACCINE 50+ Completed 019, 05/18/2015, 07/18/2011 BONE DENSITY TESTING Completed 05/07/2022, 02/04/2018, 06/09/2015 DEPRESSION SCREENING Completed 03/24/2025, 07/15/2024, 03/03/2024, Additional [...] patient's age to complete this topic Insurance [facility] MANAGED MEDICARE ADV [place] [id number] [place] [address] Advance Directives * Full Code (Latest Code Status on File) Date Activated Date Inactivated Comments 03/21/2020 5:53 PM 03/25/2020 5:03 PM * Full Code Date Activated Date Inactivated Comments 03/19/2020 6:05 PM 03/21/2020 5:36 PM Care Teams Shoe Ironer Relationship Specialty Start Date End Date Nan Blair PA PCP - General 05/08/20
--- OUTSIDE RECORDS SUMMARY | 2025-05-30 08:32 | XMS_ITS | Encounter Summary ---
Author Organization [facility] Facility Care Team Providers Care Cashier And Salesperson Name Role Phone Nan Blair Primary Care Provider [phone] Jorge Jefferson MD Primary Care Provid er Nan Blair Unavailable [phone] Nan Blair Primary Care Provider [phone] Jorge Jefferson MD Unavailable + [phone] Lizzie Collins MD Unavailable [phone] Freeman Chung MD Unavailable [phone] Maribel Andrade MD Unavailable [phone] Guy Rosen MD Unavailable Miscellaneous, Not In File Primary Care Provider Unavailable Nan Blair Primary Care Provider [phone] Encounter Details Date Type Department Care Team (Latest Contact Info) Description 04/17/2017 Orders Only [facility] CLINCONV ProviderJulieta MD [address] [place] [id number] Social History Tobacco Use Types Packs/Day Years Used Date Smoking Tobacco: Never Assessed Comments Unknown Sex and Gender Information Value Date Recorded Sex Assigned at Not on file 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 Gender Identity Female 10/05/2020 10:15 AM ROOM SERVICE FOOD SERVICE 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 Sexual Orientation Straight 10/05/2020 10 :15 AM ROOM SERVICE FOOD SERVICE ATTENDANT documented as of this encounter Plan of [...] on filedocumented in this encounter Care Teams Cashier And Salesperson Relationship Specialty Start Date End Date Nan Blair PA [address] [place] [address] PCP - General Physician Science Intern 04/28/18 02/01/19 Jorge Jefferson MD [address] [place], [place] [address] PCP - General Family Medicine 02/02/19 03/08/19 Nan Blair PA [address] [place] [address] PCP - General Physician Science Intern 03/09/19 05/03/22 Miscellaneous, Not In File PCP - General 05/04/22 07/02/22 Nan Blair PA [address] [facility], [place] [address] PCP - General Family Medicine 07/03/22 Nan Blair PA [address] [place], [place] [address] Physician Science Intern Physician Science Intern 02/02/19 9 Jorge Jefferson MD [address] [place] [address] Consulting Physician Family Medicine 03/09/19 Lizzie Collins MD [address] [address] Biologist Aide Cardiology 05/18/19 Freeman Chung MD [address] [place] [address] Referring Physician Geriatric Psychiatry 06/09/20 Maribel Andrade MD [address] [address] Consulting Physician Anesthesiology 12/31/20 Guy Rosen MD [address] [place] [address] Psychiatry 01/11/22 documented as of this encounter
--- OUTSIDE RECORDS SUMMARY | 2025-05-30 08:32 | XMS_ITS | Encounter Summary ---
Author Organization [facility] Facility Care Team Providers Care Anatomy And Physiology Instructor Name Role Phone Nan Blair Primary Care Provider [phone] Jorge Jefferson MD Primary Care Provid er Nan Blair Unavailable [phone] Nan Blair Primary Care Provider [phone] Jorge Jefferson MD Unavailable + [phone] Lizzie Collins MD Unavailable [phone] Freeman Chung MD Unavailable [phone] Maribel Andrade MD Unavailable [phone] Guy Rosen MD Unavailable Miscellaneous, Not In File Primary Care Provider Unavailable Nan Blair Primary Care Provider [phone] Encounter Details Date Type Department Care Team (Latest Contact Info) Description 11/01/2017 Orders Only [facility] CLINCONV ProviderJulieta MD [address] [place] [address] Social History Tobacco Use Types Packs/Day Years Used Date Smoking Tobacco: Never Assessed Comments Unknown Sex and Gender Information Value Date Recorded Sex Assigned at Not on file Legal 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 us Historical Provider [facility] Final Result documented in this encounter Visit Diagnoses Not on filedocumented in this encounter Care Teams Anatomy And Physiology Instructor Relationship Specialty Start Date End Date Nan Blair PA [address] [place] [address] PCP - General Physician Csr Technician 04/28/18 02/01/19 Jorge Jefferson MD [address] [place] [address] PCP - General Family Medicine 02/02/19 03/08/19 Nan Blair PA [address] [place] [address] PCP - General Physician Csr Technician 03/09/19 05/03/22 Miscellaneous, Not In File PCP - General 05/04/22 07/02/22 Nan Blair PA [address] [place] [address] PCP - General Family Medicine 07/03/22 Nan Blair PA [address] [place] [address] Physician Csr Technician Physician Csr Technician 02/02/19 9 Jorge Jefferson MD [address] [place] [address] Consulting Physician Family Medicine 03/09/19 Lizzie Collins MD [address] [address] Wire Coiler Cardiology 05/18/19 Freeman Chung MD [address] [place] [address] Referring Physician Geriatric Psychiatry 06/09/20 Maribel Andrade MD [facility] [address] [address] Consulting Physician Anesthesiology 12/31/20 Guy Rosen MD [address] [place] [address] Psychiatry 01/11/22 documented as of this encounter
[2025-05-30 08:33] LABS: INR 1.5; Partial Thromboplastin Time 33.9 Seconds (22.3-36.8); Prothrombin Time 18.2 Seconds (11.1-14.7)
[2025-05-30 08:35] LABS: Alanine Aminotransferase 31 U/L (6-35); Albumin Level 3.9 g/dL (3.5-5.1); Alkaline Phosphatase 136 U/L (38-126); Anion Gap 9 mmol/L (4-12); Aspartate Amino Transferase 50 U/L (14-36); Bilirubin,Total 0.8 mg/dL (0.2-1.3); Blood Urea Nitrogen 9 mg/dL (7-17); Calcium 10.0 mg/dL (8.4-10.2); Carbon Dioxide 23 mmol/L (22-30); Chloride 106 mmol/L (98-107); Estimated CRCL calculation 74 ml/min; Estimated Glomerular Filt Rate > 60; Glucose 103 mg/dL (65-110); Lipase 38 U/L (23-300); Potassium 3.9 mmol/L (3.4-5.0); Sodium 138 mmol/L (137-145); Total Protein 6.7 g/dL (6.3-8.2)
[2025-05-30 08:44] LABS: Hypochromasia 1+; Schistocytes None Seen
[2025-05-30 08:46] LABS: NT Pro B Type Natriuretic Pept 3310 pg/mL (19.9-100); Troponin I < 0.012 ng/mL (0.000-0.034)
[2025-05-30 09:14] LABS: Influenza A QL RT-PCR Negative (Negative); Influenza B QL RT-PCR Negative (Negative); RSV RNA, RT-PCR Negative (Negative); SARS-CoV-2 RNA PCR Negative (Negative)
[2025-05-30 09:29] LABS: Add Urine Microscopic? YES; Appearance Urine Clear (Clear); Glucose Urine UA Negative (Negative); Leukocyte Esterase Ur Trace LEU/UL (Negative); Nitrate Urine Negative (Negative); Non Pathogenic Casts 0-2; Specific Grav Ur 1.015 (1.001-1.035)
[2025-05-30] MEDS: dilTIAZem HCL CD 240 MG CAP.24HR PO (09:43)
--- NOTE | 2025-05-30 10:34 | ADMGEN ---
This patient, Kriss Worley, was admitted to IMU Room 202-01 @ 1034. Patient/family oriented to hospital policies and general routines including ID bracelet, bed and alarms, visiting hours, pain management, procedures, bathroom and other care routines, personal items, smoking policy, room service/diet, and visiting hours. Information on how to activate the Rapid Response Team has been discussed. Patient/Family are encouraged to report perceived risks to care and to ask questions if they do not understand what they are told or what they should do.
--- NOTE | 2025-05-30 12:08 | PM.IMHP ---
H&P: HPI History of Present Illness Date/Time: 05/30/25 12:08 Chief Complaint: Worsening SOB Narrative: 74 yo F with PMH of Dementia, HTN and Afib who presented to the ER by EMS from [facility] for worsening SOB. Patient is about oriented x3, however history was unsteady. Noted she was has been having SOB he past 2 months, but has worsened in the past few days. denies any orthopnea, PND, chest pain, abd pain, vomiting, diarrhea and no focal weakness. ER eval IN 112, BP 138/101, HR 21, and 96% on room air. Labs notable for Hb 10.3, NT-proBNP 3310, CXR cardiomegaly with pulm edema, EKG Afib with RVR Patient was given Lasix and home diltiazem prior to admission Review of Systems Review of Systems: All other systems reviewed and negative except as noted in the HPI above PMFSH Past Medical History Medical History Dementia of the Alzheimer's type Accidental fall Family History Family History Mother Hypertension Alzheimer dementia Sibling Hypertension Social History Social History Smoking status: Never smoker Alcohol intake: never Drinks per week: 1 Substance use: never Substance use type: does not use Do You Feel Safe in your Home?: Yes Lack of Transportation: No Lack of Food: Never True Current Housing: I Have Housing Concerned About Future Housing: No Difficulty Paying Gas/Electric Bills: No Difficulty Paying for Meds: No Currently Unemployed: No Education: Decline to Answer Difficulty w/ Childcare or Family Care: No Spiritual care concerns: No Meds Home Medications and Allergies Home Medications ?Medication ?Instructions ?Recorded ?Confirmed ?Type aspirin 81 mg chewable tablet 81 mg PO DAILY 05/03/24 05/30/25 History cyanocobalamin (vitamin B-12) 500 500 mcg PO DAILY 05/03/24 05/30/25 History mcg tablet donepezil 10 mg tablet 10 mg PO DAILY 05/03/24 05/30/25 History levothyroxine 88 mcg tablet 88 mcg PO DAILY 05/03/24 05/30/25 History albuterol 90 mcg/actuation aerosol 180 mcg inhalation Q4H PRN wheezing 01/29/25 05/30/25 History inhaler cholecalciferol (vitamin D3) 25 25 mcg PO DAILY 01/29/25 05/30/25 History mcg (1,000 unit) tablet lamotrigine 25 mg tablet 25 mg PO Q12H 01/29/25 05/30/25 History melatonin 10 mg capsule 5 mg PO HS 01/29/25 05/30/25 History naltrexone 50 mg tablet 50 mg PO DAILY 01/29/25 05/30/25 History apixaban 5 mg tablet (Eliquis) 5 mg PO Q12HR #60 tabs 02/02/25 05/30/25 Rx memantine 10 mg tablet 10 mg PO QHS #30 tabs 02/02/25 05/30/25 Rx diltiazem HCl 240 mg 240 mg PO QAM #30 tabs 02/03/25 05/30/25 Rx tablet,extended release 24 hr (Cardizem LA) L.acidophil-L.casei-B.bifid-B.longum-FOS 1 cap PO DAILY 05/30/25 05/30/25 History 2 billion cell-50 mg capsule (Probiotic Blend) acetaminophen 500 mg tablet 1,000 mg PO Q4-6H PRN fever or pain 05/30/25 05/30/25 History ooiarrzh-anyz-lkxw 8 mg-folic 400 1 tablet PO DAILY 05/30/25 05/30/25 History mcg-K 50 mcg-lutein 300 mcg tablet (Multivitamin Women 50 Plus) Allergies Allergy/AdvReac Type Severity Reaction Status Date / Time amoxicillin Allergy Unknown Verified 05/30/25 08:20 lithium Allergy kidney Verified 05/30/25 08:20 failure Penicillins Allergy Hives Verified 05/30/25 08:20 sulfamethoxazole (From Allergy Unknown Verified 05/30/25 08:20 Bactrim) trimethoprim (From Bactrim) Allergy Unknown Verified 05/30/25 08:20 codeine AdvReac Dizziness,n Verified 05/30/25 09:28 ausea/vomit ing morphine AdvReac Vomiting Verified 05/30/25 09:28 olanzapine AdvReac Confusion Verified 05/30/25 09:28 Vital Signs Vital Signs - 24 hr 05/30/25 08:02 05/30/25 08:10 05/30/25 09:45 Temperature 97.8 F Pulse Rate 112 H 111 H Respiratory Rate 21 H 20 Blood Pressure 138/101 H 113/59 L Pulse Oximetry 95 96 94 Oxygen Delivery Room Air Room Air 05/30/25 10:27 05/30/25 10:47 05/30/25 12:00 Temperature 98.1 F 98.2 F Pulse Rate 82 91 65 Respiratory Rate 17 20 18 Blood Pressure 106/78 105/50 L 102/52 L Pulse Oximetry 96 96 93 Oxygen Delivery Exam Narrative: General: alert and comfortable Eyes: EOMI, PERRLA ENNT External ears normal, Neck is supple, no masses, Respiratory systems: Clear to auscultation Cardiovascular S1, S2, normal rhythm, no murmur, rub, or gallop; no thrill or palpable murmurs on palpation. Gastrointestinal: soft, non-tender, and non-distended abdomen with no masses; BS present Skin: no rash, lesions, ulcerations, subcutaneous nodules or induration Musculoskeletal: no abnormality and no tenderness, normal ROM Neurologic: Alert and oriented x3, non focal Mental Status Exam: normal affect H&P: Results Labs Labs: Short CBC 05/30/25 Range/Units 08:15 WBC 7.8 (4.5-10.0) K/mm3 Hgb 10.3 L (12.0-15.0) g/dL Hct 35.2 L (37.0-47.0) % Plt Count 355 (150-375) k/mm3 [facility] 05/30/25 08:15 Sodium 138 Potassium 3.9 Chloride 106 Carbon Dioxide 23 BUN 9 Creatinine 0.63 L Glucose 103 Calcium 10.0 Cardiac Enzymes 05/30/25 Range/Units 08:15 Troponin I < 0.012 (0.000-0.034) ng/mL Liver Function 05/30/25 Range/Units 08:15 Total Bilirubin 0.8 (0.2-1.3) mg/dL AST 50 H (14-36) U/L ALT 31 (6-35) U/L Alkaline Phosphatase 136 H (38-126) U/L Albumin 3.9 (3.5-5.1) g/dL Urine 05/30/25 Range/Units 09:18 Urine Color Yellow (Yellow) Urine Appearance Clear (Clear) Urine pH 5.5 (5.0-9.0) Ur Specific Rodney 1.015 (1.001-1.035) Urine Protein Negative (Negative) mg/dL Urine Glucose (UA) Negative (Negative) mg/dL Assessment and Plan Assessment and plan (1) Atrial fibrillation with rapid ventricular response: Code(s): I48.91 - Unspecified atrial fibrillation Status: Acute (2) CHF (congestive heart failure): Code(s): I50.9 - Heart failure, unspecified Status: Acute Plan Pulm edema Likely CHF Presented with worsening SOB, CXR reviewed on room air ECHO pending Continue Lasix 2omg IV bid Monitor Afib w/ RVR Now rate controlled Diltiazem 24omg home dose and eliquis monitor HTN titrate home meds with clinical course Dementia conitnue home meds PT/OT DVT prophylaxis on Eliquis Full code Hospitalist MIPS Advance Care Plan I have confirmed that the patient's Advanced Care Plan is present, code status is documented, or surrogate decision maker is listed in patient medical record.: Yes Medication Reconciliation I have utilized all available resources to obtain, update and review the patients current medications (includes all prescriptions, OTC, herbals, cannabis, and nutritional supplements).: Yes
[2025-05-30 12:26] LABS: Troponin I < 0.012 ng/mL (0.000-0.034)
[2025-05-30 15:12] LABS: Troponin I < 0.012 ng/mL (0.000-0.034)
[2025-05-30] MEDS: FUROSEMIDE INJ 40 MG/4 ML VIAL 20 MG IV PUSH (17:46)
[2025-05-30] MEDS: APIXABAN 5 MG TABLET PO (20:44)
[2025-05-31] VITALS (13 sets, daily range): BP systolic 124–148; BP diastolic 65–95; PULSE 80–145; RESP 18–21; TEMP 36.8–37.1; O2SAT 90–98
[2025-05-31 04:03] LABS: Hematocrit 30.7 % (37.0-47.0); Hemoglobin 9.0 g/dL (12.0-15.0); Immature Granulocyte Percent A 0.3 % (0-0.5); Lymphocytes Absolute Auto 1.67 K/mm3 (0.9-3.2); Mean Corpuscular HGB Conc 29.3 g/dl (32-36); Mean Corpuscular Hemoglobin 23.2 pg (26-34); Mean Corpuscular Volume 79.1 fl (80-100); Nucleated Red Blood Cells Absolute Auto 0.000 K/mm3 (0.0-0.012); Nucleated Red Blood Cells Perc 0.0 % (0.0-0.2); Platelet Count Result 299 k/mm3 (150-375); Red Blood Count 3.88 M/mm3 (4.2-5.4); White Blood Count 6.6 K/mm3 (4.5-10.0)
[2025-05-31 04:22] LABS: Iron 22 ug/dL (37-170)
[2025-05-31 04:30] LABS: Alanine Aminotransferase 23 U/L (6-35); Albumin Level 3.3 g/dL (3.5-5.1); Alkaline Phosphatase 114 U/L (38-126); Anion Gap 6 mmol/L (4-12); Aspartate Amino Transferase 35 U/L (14-36); Bilirubin,Total 0.6 mg/dL (0.2-1.3); Blood Urea Nitrogen 10 mg/dL (7-17); Calcium 9.2 mg/dL (8.4-10.2); Carbon Dioxide 24 mmol/L (22-30); Chloride 107 mmol/L (98-107); Estimated CRCL calculation 74 ml/min; Estimated Glomerular Filt Rate > 60; Glucose 91 mg/dL (65-110); Magnesium 1.9 mg/dL (1.6-2.3); Potassium 3.4 mmol/L (3.4-5.0); Sodium 137 mmol/L (137-145); Total Protein 5.8 g/dL (6.3-8.2)
[2025-05-31 04:31] LABS: Percent Iron Saturation 5 % (20-50)
[2025-05-31 04:48] LABS: Anisocytosis 1+; Crenated RBC 1+; Hypochromasia 1+; Ovalocytes 1+; Poikilocytosis 1+
[2025-05-31 04:49] LABS: Schistocytes None Seen
[2025-05-31 05:03] LABS: Ferritin 8.23 ng/mL (11.1-264)
[2025-05-31] MEDS: FUROSEMIDE INJ 40 MG/4 ML VIAL 20 MG IV PUSH (08:43)
[2025-05-31] MEDS: APIXABAN 5 MG TABLET PO (08:43)
[2025-05-31] MEDS: IRON SUCROSE COMPLEX 400 MG, IRON SUCROSE COMPLEX 100 MG in SODIUM CHLORIDE 0.9% IV 250 ML 78.57 MG IVPB (11:34)
--- NOTE | 2025-05-31 14:57 | P.PNIM_ITS ---
Progress Note: A&P Assessment and Plan (1) Atrial fibrillation with rapid ventricular response: Code(s): I48.91 - Unspecified atrial fibrillation Status: Acute (2) CHF (congestive heart failure): Code(s): I50.9 - Heart failure, unspecified Status: Acute Plan CHF exacerbation, diastolic Likely CHF Presented with worsening SOB, CXR reviewed on room air ECHO from January 29 showed EF 55-60%, with abnormal left ventricular function Continue Lasix 2omg IV bid, change to PO Monitor Afib w/ RVR still elevated Continue Diltiazem 240 mg and Eliquis start Metoprolol 12.5mg bid and monitor monitor Iron deficiency anemia Hb 9.0, ferritin 8, FOBT pending Because patient id on anticoagulation, i have consulted GI for possible end oscopy Started on IV venofer 500/1000mg awaiting GI eval HTN titrate home meds with clinical course Dementia conitnue home meds PT/OT DVT prophylaxis on Eliquis Full code Subjective Date/time seen: 05/31/25 14:57 Interval history: Comfortable at bedside however heart rate in 110s Review of Systems Review of Systems: All other systems reviewed and negative except as noted in the HPI above Exam Narrative: General: alert and comfortable Eyes: EOMI, PERRLA ENNT External ears normal, Neck is supple, no masses, Respiratory systems: Clear to auscultation Cardiovascular S1, S2, normal rhythm, no murmur, rub, or gallop; no thrill or palpable murmurs on palpation. Gastrointestinal: soft, non-tender, and non-distended abdomen with no masses; BS present Skin: no rash, lesions, ulcerations, subcutaneous nodules or induration Musculoskeletal: no abnormality and no tenderness, normal ROM Neurologic: Alert and oriented x3, non focal Mental Status Exam: normal affect Objective Data Vital Signs Vital Signs: Vital Signs - 24 hr 05/30/25 16:00 05/30/25 16:10 05/30/25 20:00 Temperature 98.3 F Pulse Rate 60 57 L 94 Respiratory Rate 20 20 Blood Pressure 103/61 Pulse Oximetry 95 95 Oxygen Delivery Room Air 05/30/25 20:00 05/30/25 21:06 05/31/25 00:00 Temperature Pulse Rate 94 103 H Respiratory Rate Blood Pressure Pulse Oximetry 95 Oxygen Delivery Room Air 05/31/25 00:00 05/31/25 04:00 05/31/25 08:00 Temperature 98.2 F 98.2 F Pulse Rate 86 80 95 Respiratory Rate 21 H 20 Blood Pressure 128/65 125/81 Pulse Oximetry 94 96 Oxygen Delivery 05/31/25 08:00 05/31/25 08:00 05/31/25 12:00 Temperature Pulse Rate 87 114 H Respiratory Rate Blood Pressure Pulse Oximetry Oxygen Delivery Room Air Intake/Output Intake/Output: Intake & Output 05/28/25 05/29/25 05/30/25 05/31/25 23:59 23:59 23:59 23:59 Intake Total 560 590 Balance 560 590 Meds/Results Medications: Active Medications Generic Name Dose Route Start Last Admin Trade Name Freq PRN Reason Stop Dose Admin Acetaminophen 650 mg 05/30/25 09:33 Acetaminophen 650 Mg Suppository RECTAL Q6H PRN Mild Pain (1-3) or Fever Apixaban 5 mg 05/30/25 21:00 05/31/25 08:43 Apixaban 5 Mg Tablet PO 5 mg Q12HR JUAN Administration Furosemide 20 mg 05/30/25 17:00 05/31/25 08:43 Furosemide Inj 40 Mg/4 Ml Vial IV PUSH 20 mg BID JUAN Administration Perflutren Lipid Microsphere 0 ml 05/30/25 11:49 Perflutren Lipid Microspheres 1.5 Ml Vial Diluted To 10 Ml Total Volume IV PUSH 06/02/25 11:49 ONCE PRN adequate visualization Protocol Radiology Results: ITS Impressions Chest X-Ray 05/30/25 08:39 Impression: 1: Cardiomegaly with mild interstitial edema. Labs Labs: Laboratory Results - last 24 hr 05/30/25 05/31/25 14:37 03:51 WBC 6.6 RBC 3.88 L Hgb 9.0 L Hct 30.7 L MCV 79.1 L MCH 23.2 L MCHC 29.3 L RDW 17.7 H Plt Count 299 MPV 9.6 Immature Gran % (Auto) 0.3 Neut % (Auto) 61.1 Lymph % (Auto) 25.4 Culberson % (Auto) 9.4 H Eos % (Auto) 2.7 Baso % (Auto) 1.1 Lymph # (Auto) 1.67 Culberson # (Auto) 0.6 Eos # (Auto) 0.2 Baso # (Auto) 0.1 Abs Immat Gran (auto) 0.02 Absolute Neuts (auto) 4.0 Absolute Nucleated RBC 0.000 Band Neutrophils % Not Reportable Nucleated RBC % 0.0 Platelet Estimate Adequate Hypochromasia 1+ Poikilocytosis 1+ Anisocytosis 1+ Ovalocytes 1+ Crenated Cell 1+ Schistocytes None seen Sodium 137 Potassium 3.4 Chloride 107 Carbon Dioxide 24 Anion Gap 6 BUN 10 Creatinine 0.61 L Estim Creat Clear Calc 74 Estimated GFR > 60 Glucose 91 Lactic Acid 0.7 Calcium 9.2 Magnesium 1.9 Iron 22 L TIBC 417 % Saturation 5 L Ferritin 8.23 L Total Bilirubin 0.6 AST 35 ALT 23 Alkaline Phosphatase 114 Troponin I < 0.012 Total Protein 5.8 L Albumin 3.3 L
[2025-05-31] MEDS: POTASSIUM CHLORIDE 20 MEQ PACKET (FOR LIQUID) 40 MEQ PO (15:21)
[2025-05-31] MEDS: METOPROLOL TARTRATE 12.5 MG TABLET PO ×2 (15:21→20:00)
[2025-05-31] MEDS: POTASSIUM CHLORIDE INJ 40 MEQ in SODIUM CHLORIDE 0.9% IV 500 ML 130 MEQ IVPB (15:36)
[2025-05-31] MEDS: SODIUM CHLORIDE 0.9% IV 250 ML 30 ML (16:46)
--- NOTE | 2025-05-31 17:08 | WPDGICN ---
Assessment and Plan Assessment and plan (1) Iron deficiency anemia: Code(s): D50.9 - Iron deficiency anemia, unspecified Status: Acute Assessment and Plan: Differential diagnosis of iron deficiency anemia includes gastric or colonic neoplasm, Arteriovenous malformation, peptic ulcer disease, erosive gastritis, or large hiatal hernia, among others. A Colonoscopy and EGD will be planned for this Saturday, holding Eliquis dose for 24 hours. GI Consult Note Consult date/time: 05/31/25 17:08 Reason for consult: Iron deficiency anemia HPI: Kriss Worley is a 74 year old female with a history of atrial fibrillation currently anticoagulated on Eliquis. She was admitted yesterday, brought from the assisted living facility for persistent dry cough. During workup, she was found to have iron deficiency anemia: Hemoglobin 9.0, hematocrit 30.7, platelets 299, INR 1.5, prothrombin time 18.2 seconds, creatinine 0.61, AST 35, ALT 23, albumin 3.3, iron saturation 5%, ferritin 8.23. The patient denies melena, hematochezia, abdominal pain, change in bowel habits, nausea, vomiting hematemesis or coffee-ground. She does not recall having had an EGD and her colonoscopy was more than 10 years ago. Review of Systems Review of Systems: All systems reviewed & are unremarkable except as noted in HPI and below PMFSH Past Medical History Medical History Dementia of the Alzheimer's type Accidental fall Family History Family History Mother Hypertension Alzheimer dementia Sibling Hypertension Social History Social History Smoking status: Never smoker Alcohol intake: never Drinks per week: 1 Substance use: never Substance use type: does not use Do You Feel Safe in your Home?: Yes Lack of Transportation: No Lack of Food: Never True Current Housing: I Have Housing Concerned About Future Housing: No Difficulty Paying Gas/Electric Bills: No Difficulty Paying for Meds: No Currently Unemployed: No Education: Decline to Answer Difficulty w/ Childcare or Family Care: No Spiritual care concerns: No Meds Home Medications and Allergies Home Medications ?Medication ?Instructions ?Recorded ?Confirmed ?Type aspirin 81 mg chewable tablet 81 mg PO DAILY 05/03/24 05/30/25 History cyanocobalamin (vitamin B-12) 500 500 mcg PO DAILY 05/03/24 05/30/25 History mcg tablet donepezil 10 mg tablet 10 mg PO DAILY 05/03/24 05/30/25 History levothyroxine 88 mcg tablet 88 mcg PO DAILY 05/03/24 05/30/25 History albuterol 90 mcg/actuation aerosol 180 mcg inhalation Q4H PRN wheezing 01/29/25 05/30/25 History inhaler cholecalciferol (vitamin D3) 25 25 mcg PO DAILY 01/29/25 05/30/25 History mcg (1,000 unit) tablet lamotrigine 25 mg tablet 25 mg PO Q12H 01/29/25 05/30/25 History melatonin 10 mg capsule 5 mg PO HS 01/29/25 05/30/25 History naltrexone 50 mg tablet 50 mg PO DAILY 01/29/25 05/30/25 History apixaban 5 mg tablet (Eliquis) 5 mg PO Q12HR #60 tabs 02/02/25 05/30/25 Rx memantine 10 mg tablet 10 mg PO QHS #30 tabs 02/02/25 05/30/25 Rx diltiazem HCl 240 mg 240 mg PO QAM #30 tabs 02/03/25 05/30/25 Rx tablet,extended release 24 hr (Cardizem LA) L.acidophil-L.casei-B.bifid-B.longum-FOS 1 cap PO DAILY 05/30/25 05/30/25 History 2 billion cell-50 mg capsule (Probiotic Blend) acetaminophen 500 mg tablet 1,000 mg PO Q4-6H PRN fever or pain 05/30/25 05/30/25 History ifqwqhxs-esif-okbx 8 mg-folic 400 1 tablet PO DAILY 05/30/25 05/30/25 History mcg-K 50 mcg-lutein 300 mcg tablet (Multivitamin Women 50 Plus) Allergies Allergy/AdvReac Type Severity Reaction Status Date / Time amoxicillin Allergy Unknown Verified 05/30/25 08:20 lithium Allergy kidney Verified 05/30/25 08:20 failure Penicillins Allergy Hives Verified 05/30/25 08:20 sulfamethoxazole (From Allergy Unknown Verified 05/30/25 08:20 Bactrim) trimethoprim (From Bactrim) Allergy Unknown Verified 05/30/25 08:20 codeine AdvReac Dizziness,n Verified 05/30/25 09:28 ausea/vomit ing morphine AdvReac Vomiting Verified 05/30/25 09:28 olanzapine AdvReac Confusion Verified 05/30/25 09:28 Vital Signs Vital Signs - 24 hr 05/30/25 20:00 05/30/25 20:00 05/30/25 21:06 Temperature Pulse Rate 94 94 Respiratory Rate 20 Blood Pressure Pulse Oximetry 95 95 Oxygen Delivery Room Air Room Air 05/31/25 00:00 05/31/25 00:00 05/31/25 04:00 Temperature 98.2 F Pulse Rate 103 H 86 80 Respiratory Rate 21 H Blood Pressure 128/65 Pulse Oximetry 94 Oxygen Delivery 05/31/25 08:00 05/31/25 08:00 05/31/25 08:00 Temperature 98.2 F Pulse Rate 95 87 Respiratory Rate 20 Blood Pressure 125/81 Pulse Oximetry 96 Oxygen Delivery Room Air 05/31/25 12:00 05/31/25 15:21 05/31/25 16:00 Temperature 98.7 F Pulse Rate 114 H 109 H 91 Respiratory Rate 18 Blood Pressure 133/82 Pulse Oximetry 98 Oxygen Delivery Exam Const: General: cooperative and healthy appearing Resp: Effort & Inspection: normal respiratory effort and able to speak in complete sentences Auscultation: clear to auscultation bilaterally Cardio: Rate: regular rate Rhythm: regular rhythm GI: Inspection: normal to inspection GI Palp: No No hepatosplenomegaly present Auscultation: normal bowel sounds Rectal Exam: deferred Skin: General skin exam: normal color Psych: Appearance: grossly normal Mental Status: mental status grossly normal Results Labs 05/31/25 03:51 05/31/25 03:51 Labs: Short CBC 05/31/25 Range/Units 03:51 WBC 6.6 (4.5-10.0) K/mm3 Hgb 9.0 L (12.0-15.0) g/dL Hct 30.7 L (37.0-47.0) % Plt Count 299 (150-375) k/mm3 BMP 05/31/25 03:51 Sodium 137 Potassium 3.4 Chloride 107 Carbon Dioxide 24 BUN 10 Creatinine 0.61 L Glucose 91 Calcium 9.2 Liver Function 08/25/25 Range/Units 03:51 Total Bilirubin 0.6 (0.2-1.3) mg/dL AST 35 (14-36) U/L ALT 23 (6-35) U/L Alkaline Phosphatase 114 (38-126) U/L Albumin 3.3 L (3.5-5.1) g/dL
[2025-05-31] MEDS: FUROSEMIDE 20 MG TABLET PO (17:28)
[2025-05-31] MEDS: METOPROLOL TARTRATE INJ 5 MG/5 ML VIAL IV PUSH ×2 (19:57→20:51)
[2025-05-31 21:26] LABS: Add Urine Microscopic? NO; Appearance Urine Clear (Clear); Glucose Urine UA Negative (Negative); Leukocyte Esterase Ur Negative LEU/UL (Negative); Nitrate Urine Negative (Negative); Specific Grav Ur 1.009 (1.001-1.035)
[2025-06-01] VITALS (11 sets, daily range): BP systolic 111–128; BP diastolic 58–90; PULSE 77–133; RESP 16–20; TEMP 36.7–36.9; O2SAT 93–98
[2025-06-01 04:18] LABS: Hematocrit 32.2 % (37.0-47.0); Hemoglobin 9.5 g/dL (12.0-15.0); Immature Granulocyte Percent A 0.5 % (0-0.5); Lymphocytes Absolute Auto 1.27 K/mm3 (0.9-3.2); Mean Corpuscular HGB Conc 29.5 g/dl (32-36); Mean Corpuscular Hemoglobin 23.3 pg (26-34); Mean Corpuscular Volume 78.9 fl (80-100); Nucleated Red Blood Cells Absolute Auto 0.000 K/mm3 (0.0-0.012); Nucleated Red Blood Cells Perc 0.0 % (0.0-0.2); Platelet Count Result 325 k/mm3 (150-375); Red Blood Count 4.08 M/mm3 (4.2-5.4); White Blood Count 11.0 K/mm3 (4.5-10.0)
[2025-06-01 04:43] LABS: Hypochromasia 1+
[2025-06-01 04:44] LABS: Schistocytes None Seen
[2025-06-01 04:51] LABS: Alanine Aminotransferase 22 U/L (6-35); Albumin Level 3.4 g/dL (3.5-5.1); Alkaline Phosphatase 108 U/L (38-126); Anion Gap 5 mmol/L (4-12); Aspartate Amino Transferase 42 U/L (14-36); Bilirubin,Total 0.8 mg/dL (0.2-1.3); Blood Urea Nitrogen 8 mg/dL (7-17); Calcium 9.2 mg/dL (8.4-10.2); Carbon Dioxide 25 mmol/L (22-30); Chloride 105 mmol/L (98-107); Estimated CRCL calculation 74 ml/min; Estimated Glomerular Filt Rate > 60; Glucose 96 mg/dL (65-110); Magnesium 1.7 mg/dL (1.6-2.3); Potassium 3.9 mmol/L (3.4-5.0); Sodium 135 mmol/L (137-145); Total Protein 5.9 g/dL (6.3-8.2)
[2025-06-01] MEDS: METOPROLOL TARTRATE 12.5 MG TABLET PO (08:30)
[2025-06-01] MEDS: FUROSEMIDE 20 MG TABLET PO (08:31)
--- NOTE | 2025-06-01 09:23 | PM.CNCAR ---
Assessment and Plan Assessment and plan (1) Atrial fibrillation with rapid ventricular response: Code(s): I48.91 - Unspecified atrial fibrillation Status: Acute Plan This is a 74-year-old lady with chronic atrial fibrillation she had responded well to diltiazem in the past for rate control. I believe it has been over site but her diltiazem is not currently ordered and as result she is moderately tachycardic. I am going to transition her regimen back to diltiazem at the previously effective dose of 240 mg per day and stopped scheduled metoprolol. Her anticoagulation is on hold in anticipation of going to the GI lab tomorrow for evaluation of iron deficiency anemia. Will follow her telemetry with you while she is in the hospital. Braber Alvarado MD [facility] History of Present Illness History of Present Illness Consult date/time: 06/01/25 09:23 Reason For Visit: Upper respiratory viral infection, Afib with RVR, Narrative: This is a 74-year-old woman I am seeing at the request of the hospitalist today for assistance with management of atrial fibrillation. She is unknown to me but is known to our service from previous care here at the hospital and previous office visits. She has a history of chronic atrial fibrillation and was hospitalized 2 days ago sent here from her assisted living facility where she resides because of a cough. The chart indicates she had a dry nonproductive cough she was not having a fever any chest pain shortness of breath or palpitations. The patient feels well this morning and has no complaints. She does have significant Alzheimer's disease in interestingly she is well aware of this and says that she can not remember why she was said to the hospital a couple of days ago. She is wondering if she can go home at this point. She normally takes diltiazem 240 mg daily for heart rate control. The drug has not been ordered since she has been in the hospital and her heart rates have been moderately elevated although she has been hemodynamically stable and asymptomatic. The hospitalists have ordered some metoprolol for rate control and have consulted us for further advice. Other than her tachycardia her vital signs are stable. Her previous recent evaluation demonstrated evidence of normal left ventricular systolic function and moderate amount of mitral valve regurgitation. She was last seen in the office by our nurse practitioner in February of this year and was stable at that time. Review of Systems Review of Systems: ROS unobtainable: Yes unobtainable due to mental status PMFSH Past Medical History Medical History Dementia of the Alzheimer's type Accidental fall Family History Family History Mother Hypertension Alzheimer dementia Sibling Hypertension Social History Social History Smoking status: Never smoker Alcohol intake: never Drinks per week: 1 Substance use: never Substance use type: does not use Do You Feel Safe in your Home?: Yes Lack of Transportation: No Lack of Food: Never True Current Housing: I Have Housing Concerned About Future Housing: No Difficulty Paying Gas/Electric Bills: No Difficulty Paying for Meds: No Currently Unemployed: No Education: Decline to Answer Difficulty w/ Childcare or Family Care: No Spiritual care concerns: No Meds Home Medications and Allergies Home Medications ?Medication ?Instructions ?Recorded ?Confirmed ?Type aspirin 81 mg chewable tablet 81 mg PO DAILY 05/03/24 05/30/25 History cyanocobalamin (vitamin B-12) 500 500 mcg PO DAILY 05/03/24 05/30/25 History mcg tablet donepezil 10 mg tablet 10 mg PO DAILY 05/03/24 05/30/25 History levothyroxine 88 mcg tablet 88 mcg PO DAILY 05/03/24 05/30/25 History albuterol 90 mcg/actuation aerosol 180 mcg inhalation Q4H PRN wheezing 01/29/25 05/30/25 History inhaler cholecalciferol (vitamin D3) 25 25 mcg PO DAILY 01/29/25 05/30/25 History mcg (1,000 unit) tablet lamotrigine 25 mg tablet 25 mg PO Q12H 01/29/25 05/30/25 History melatonin 10 mg capsule 5 mg PO HS 01/29/25 05/30/25 History naltrexone 50 mg tablet 50 mg PO DAILY 01/29/25 05/30/25 History apixaban 5 mg tablet (Eliquis) 5 mg PO Q12HR #60 tabs 02/02/25 05/30/25 Rx memantine 10 mg tablet 10 mg PO QHS #30 tabs 02/02/25 05/30/25 Rx diltiazem HCl 240 mg 240 mg PO QAM #30 tabs 02/03/25 05/30/25 Rx tablet,extended release 24 hr (Cardizem LA) L.acidophil-L.casei-B.bifid-B.longum-FOS 1 cap PO DAILY 05/30/25 05/30/25 History 2 billion cell-50 mg capsule (Probiotic Blend) acetaminophen 500 mg tablet 1,000 mg PO Q4-6H PRN fever or pain 05/30/25 05/30/25 History tiuckbve-qzpx-hykt 8 mg-folic 400 1 tablet PO DAILY 05/30/25 05/30/25 History mcg-K 50 mcg-lutein 300 mcg tablet (Multivitamin Women 50 Plus) Allergies Allergy/AdvReac Type Severity Reaction Status Date / Time amoxicillin Allergy Unknown Verified 05/30/25 08:20 lithium Allergy kidney Verified 05/30/25 08:20 failure Penicillins Allergy Hives Verified 05/30/25 08:20 sulfamethoxazole (From Allergy Unknown Verified 05/30/25 08:20 Bactrim) trimethoprim (From Bactrim) Allergy Unknown Verified 05/30/25 08:20 codeine AdvReac Dizziness,n Verified 05/30/25 09:28 ausea/vomit ing morphine AdvReac Vomiting Verified 05/30/25 09:28 olanzapine AdvReac Confusion Verified 05/30/25 09:28 Vital Signs Vital Signs - 24 hr 05/31/25 12:00 05/31/25 12:00 05/31/25 15:21 Temperature 36.8 C Pulse Rate 114 H 95 109 H Respiratory Rate 20 Blood Pressure 125/81 Pulse Oximetry 96 Oxygen Delivery Fraction of Inspired Oxygen 05/31/25 16:00 05/31/25 16:00 05/31/25 19:45 Temperature 37.1 C Pulse Rate 91 111 H 145 H Respiratory Rate 18 Blood Pressure 133/82 148/88 H Pulse Oximetry 98 Oxygen Delivery Fraction of Inspired Oxygen 05/31/25 19:57 05/31/25 20:00 05/31/25 20:00 Temperature Pulse Rate 145 H 131 H Respiratory Rate Blood Pressure Pulse Oximetry Oxygen Delivery Room Air Fraction of Inspired Oxygen 05/31/25 20:00 05/31/25 20:30 05/31/25 20:48 Temperature Pulse Rate 133 H 123 H 128 H Respiratory Rate Blood Pressure 124/95 H Pulse Oximetry 92 Oxygen Delivery Room Air Fraction of Inspired Oxygen 21 05/31/25 20:51 05/31/25 23:41 06/01/25 00:00 Temperature Pulse Rate 128 H 126 H 114 H Respiratory Rate 18 Blood Pressure 124/76 Pulse Oximetry 90 Oxygen Delivery Fraction of Inspired Oxygen 06/01/25 04:00 06/01/25 07:30 06/01/25 08:30 Temperature 36.9 C Pulse Rate 108 H 133 H 116 H Respiratory Rate 20 Blood Pressure 120/90 Pulse Oximetry 95 Oxygen Delivery Fraction of Inspired Oxygen Exam Const: General: comfortable and no acute distress Other: Very pleasant white female appearing her stated age resting comfortably in bed watching television Eyes: Sclera: sclerae normal Pupils: Equal, round and reactive pupils present Neck: Neck: supple and no JVD Resp: Effort & Inspection: normal respiratory effort Auscultation: clear to auscultation bilaterally Cardio: Rate: tachycardic Rhythm: abnormal rhythm irregularly irregular GI: GI Palp: Yes Soft to palpation Auscultation: normal bowel sounds Urinary Catheter: Urinary Catheter: patent and draining Skin: General skin exam: normal color Neuro: Other: Alert and responsive, very poor memory Results Labs and Meds 06/01/25 04:06 06/01/25 04:06 Lab results: Cardiac Enzymes 06/01/25 Range/Units 04:06 AST 42 H (14-36) U/L CBC 06/01/25 Range/Units 04:06 WBC 11.0 H (4.5-10.0) K/mm3 RBC 4.08 L (4.2-5.4) M/mm3 Hgb 9.5 L (12.0-15.0) g/dL Hct 32.2 L (37.0-47.0) % Plt Count 325 (150-375) k/mm3 Lymph # (Auto) 1.27 (0.9-3.2) K/mm3 [place] # (Auto) 0.5 (0.1-0.6) K/mm3 Eos # (Auto) 0.1 (0-0.3) K/mm3 Baso # (Auto) 0.1 (0.0-0.1) K/mm3 Comprehensive Metabolic Panel 06/01/25 Range/Units 04:06 Sodium 135 L (137-145) mmol/L Potassium 3.9 (3.4-5.0) mmol/L Chloride 105 (98-107) mmol/L Carbon Dioxide 25 (22-30) mmol/L BUN 8 (7-17) mg/dL Creatinine 0.61 L (0.7-1.0) mg/dL Glucose 96 (65-110) mg/dL Calcium 9.2 (8.4-10.2) mg/dL AST 42 H (14-36) U/L ALT 22 (6-35) U/L Alkaline Phosphatase 108 (38-126) U/L Total Protein 5.9 L (6.3-8.2) g/dL Albumin 3.4 L (3.5-5.1) g/dL Intake and Output 05/31/25 06/01/25 06/01/25 23:59 07:59 15:59 Intake Total 1600 480 Output Total 1650 300 Balance -50 -300 480 Intake: IV 520 Potassium Chloride Inj 40 meq 520 In Sodium Chloride 0.9% IV 500 ml @ 130 mls/hr IVPB ONCE ONE Rx#:[id number] Oral 1080 480 Output: Urine 1650 300 Other: # Unmeasured Voids 7 4 Number of Bowel Movements Today 5 Patient Weight 06/01/25 23:59 Weight 86.1 kg
[2025-06-01] MEDS: dilTIAZem HCL CD 240 MG CAP.24HR PO (10:08)
--- NOTE | 2025-06-01 14:58 | PM.IMPN ---
Progress Note: A&P Assessment and Plan (1) Atrial fibrillation with rapid ventricular response: Code(s): I48.91 - Unspecified atrial fibrillation Status: Acute (2) CHF (congestive heart failure): Code(s): I50.9 - Heart failure, unspecified Status: Acute Plan CHF exacerbation, diastolic Likely CHF Presented with worsening SOB, CXR reviewed on room air ECHO from January 29 showed EF 55-60%, with abnormal left ventricular function Continue Lasix 20mg daily Monitor Afib w/ RVR still elevated Continue Diltiazem 240 mg; Eliquis on hold due to possible GI bleed and for endoscopy tomorrow s/p Metoprolol per cardiology Cardiology following Iron deficiency anemia Hb 9.0, ferritin 8, FOBT pending Because patient id on anticoagulation, i have consulted GI for possible endoscopy Started on IV venofer 1000/1000mg For upper and lower endoscopy tomorrow to rule out Gi bleed HTN titrate home meds with clinical course Dementia continue home meds PT/OT DVT prophylaxis on Eliquis Full code Subjective Date/time seen: 06/01/25 14:58 Interval history: Comfortable at bedside For Endoscopy tomorrow Review of Systems Review of Systems: All other systems reviewed and negative except as noted in the HPI above Exam Narrative: General: alert and comfortable Eyes: EOMI, PERRLA ENNT External ears normal, Neck is supple, no masses, Respiratory systems: Clear to auscultation Cardiovascular S1, S2, normal rhythm, no murmur, rub, or gallop; no thrill or palpable murmurs on palpation. Gastrointestinal: soft, non-tender, and non-distended abdomen with no masses; BS present Skin: no rash, lesions, ulcerations, subcutaneous nodules or induration Musculoskeletal: no abnormality and no tenderness, normal ROM Neurologic: Alert and oriented x3, non focal Mental Status Exam: normal affect Objective Data Vital Signs Vital Signs: Vital Signs - 24 hr 05/31/25 15:21 05/31/25 16:00 05/31/25 16:00 Temperature 98.7 F Pulse Rate 109 H 91 111 H Respiratory Rate 18 Blood Pressure 133/82 Pulse Oximetry 98 Oxygen Delivery Fraction of Inspired Oxygen 05/31/25 19:45 05/31/25 19:57 05/31/25 20:00 Temperature Pulse Rate 145 H 145 H 131 H Respiratory Rate Blood Pressure 148/88 H Pulse Oximetry Oxygen Delivery Fraction of Inspired Oxygen 05/31/25 20:00 05/31/25 20:00 05/31/25 20:30 Temperature Pulse Rate 133 H 123 H Respiratory Rate Blood Pressure Pulse Oximetry 92 Oxygen Delivery Room Air Room Air Fraction of Inspired Oxygen 21 05/31/25 20:48 05/31/25 20:51 05/31/25 23:41 Temperature Pulse Rate 128 H 128 H 126 H Respiratory Rate 18 Blood Pressure 124/95 H 124/76 Pulse Oximetry 90 Oxygen Delivery Fraction of Inspired Oxygen 06/01/25 00:00 06/01/25 04:00 06/01/25 07:30 Temperature 98.5 F Pulse Rate 114 H 108 H 133 H Respiratory Rate 20 Blood Pressure 120/90 Pulse Oximetry 95 Oxygen Delivery Fraction of Inspired Oxygen 06/01/25 08:00 06/01/25 08:30 06/01/25 12:00 Temperature Pulse Rate 100 116 H 106 H Respiratory Rate Blood Pressure Pulse Oximetry Oxygen Delivery Fraction of Inspired Oxygen Intake/Output Intake/Output: Intake & Output 05/29/25 05/30/25 05/31/25 06/01/25 23:59 23:59 23:59 23:59 Intake Total 560 2785 720 Output Total 1650 1350 Balance 560 1135 -048 Meds/Results Medications: Active Medications Generic Name Dose Route Start Last Admin Trade Name Freq PRN Reason Stop Dose Admin Acetaminophen 650 mg 05/30/25 09:33 Acetaminophen 650 Mg Suppository RECTAL Q6H PRN Mild Pain (1-3) or Fever Apixaban 5 mg 05/30/25 21:00 05/31/25 08:43 Apixaban 5 Mg Tablet PO 5 mg On Hold: 05/31/25 17:00 Q12HR JUAN Administration Resume: 06/02/25 17:12 Diltiazem HCl 240 mg 06/01/25 09:25 06/01/25 10:08 Diltiazem Hcl Cd 240 Mg Cap.24hr PO 240 mg QAM JUAN Administration Furosemide 20 mg 06/02/25 09:00 Furosemide 20 Mg Tablet PO DAILY JUAN Perflutren Lipid Microsphere 0 ml 05/30/25 11:49 Perflutren Lipid Microspheres 1.5 Ml Vial Diluted To 10 Ml Total Volume IV PUSH 06/02/25 11:49 ONCE PRN adequate visualization Protocol Polyethylene Glycol 119 gm 06/01/25 20:00 Polyethylene Glycol 3350 238 Gm Bottle PO 06/02/25 05:01 BID@[id number] [facility] Radiology Results: ITS Impressions Chest X-Ray 05/30/25 08:39 Impression: 1: Cardiomegaly with mild interstitial edema. Labs Labs: Laboratory Results - last 24 hr 05/31/25 06/01/25 20:55 04:06 WBC 11.0 H RBC 4.08 L Hgb 9.5 L Hct 32.2 L MCV 78.9 L MCH 23.3 L MCHC 29.5 L RDW 17.7 H Plt Count 325 MPV 9.4 Immature Gran % (Auto) 0.5 Neut % (Auto) 81.6 H Lymph % (Auto) 11.5 L [place] % (Auto) 4.8 Eos % (Auto) 0.9 Baso % (Auto) 0.7 Lymph # (Auto) 1.27 [place] # (Auto) 0.5 Eos # (Auto) 0.1 Baso # (Auto) 0.1 Abs Immat Gran (auto) 0.05 H Absolute Neuts (auto) 9.0 H Absolute Nucleated RBC 0.000 Band Neutrophils % Not Reportable Nucleated RBC % 0.0 Platelet Estimate Adequate Hypochromasia 1+ Schistocytes None seen Sodium 135 L Potassium 3.9 Chloride 105 Carbon Dioxide 25 Anion Gap 5 BUN 8 Creatinine 0.61 L Estim Creat Clear Calc 74 Estimated GFR > 60 Glucose 96 Calcium 9.2 Magnesium 1.7 Total Bilirubin 0.8 AST 42 H ALT 22 Alkaline Phosphatase 108 Total Protein 5.9 L Albumin 3.4 L Urine Color Yellow Urine Appearance Clear Urine pH 7.0 Ur Specific [place] 1.009 Urine Protein Negative Urine Glucose (UA) Negative Urine Ketones Negative Ur Blood (Man) Negative Urine Nitrate Negative Urine Bilirubin Negative Urine Urobilinogen 1.0 Leukocyte Esterase Rfl Negative
[2025-06-01] MEDS: IRON SUCROSE COMPLEX 400 MG, IRON SUCROSE COMPLEX 100 MG in SODIUM CHLORIDE 0.9% IV 250 ML 78.57 MG IVPB (15:43)
--- NOTE | 2025-06-01 17:54 | P.PNGI_ITS ---
Progress Note: A&P Assessment and Plan (1) Iron deficiency anemia: Code(s): D50.9 - Iron deficiency anemia, unspecified Status: Acute Assessment and Plan: As discussed previously, the patient will undergo EGD and colonoscopy tomorrow to evaluate the cause for iron deficiency anemia. This is important especially in anticipation to her need for anticoagulation in the near future. Subjective Date/time seen: 06/01/25 17:54 Objective Data Vital Signs Vital Signs: Vital Signs - 24 hr 05/31/25 19:45 05/31/25 19:57 05/31/25 20:00 Temperature Pulse Rate 145 H 145 H 131 H Respiratory Rate Blood Pressure 148/88 H Pulse Oximetry Oxygen Delivery Fraction of Inspired Oxygen 05/31/25 20:00 05/31/25 20:00 05/31/25 20:30 Temperature Pulse Rate 133 H 123 H Respiratory Rate Blood Pressure Pulse Oximetry 92 Oxygen Delivery Room Air Room Air Fraction of Inspired Oxygen 21 05/31/25 20:48 05/31/25 20:51 05/31/25 23:41 Temperature Pulse Rate 128 H 128 H 126 H Respiratory Rate 18 Blood Pressure 124/95 H 124/76 Pulse Oximetry 90 Oxygen Delivery Fraction of Inspired Oxygen 06/01/25 00:00 06/01/25 04:00 06/01/25 07:30 Temperature 98.5 F Pulse Rate 114 H 108 H 133 H Respiratory Rate 20 Blood Pressure 120/90 Pulse Oximetry 95 Oxygen Delivery Fraction of Inspired Oxygen 06/01/25 08:00 06/01/25 08:30 06/01/25 12:00 Temperature Pulse Rate 100 116 H 106 H Respiratory Rate Blood Pressure Pulse Oximetry Oxygen Delivery Fraction of Inspired Oxygen 06/01/25 14:41 06/01/25 15:40 06/01/25 16:00 Temperature 98.3 F Pulse Rate 77 82 Respiratory Rate 16 Blood Pressure 111/58 L Pulse Oximetry 95 Oxygen Delivery Room Air Fraction of Inspired Oxygen Intake/Output Intake/Output: Intake & Output 05/29/25 05/30/25 05/31/25 06/01/25 23:59 23:59 23:59 23:59 Intake Total 560 2335 960 Output Total 1650 1725 Balance 560 4414 -262 Meds/Results Medications: Active Medications Generic Name Dose Route Start Last Admin Trade Name Freq PRN Reason Stop Dose Admin Acetaminophen 650 mg 05/30/25 09:33 Acetaminophen 650 Mg Suppository RECTAL Q6H PRN Mild Pain (1-3) or Fever Apixaban 5 mg 05/30/25 21:00 05/31/25 08:43 Apixaban 5 Mg Tablet PO 5 mg On Hold: 05/31/25 17:00 Q12HR JUAN Administration Resume: 06/02/25 17:12 Diltiazem HCl 240 mg 06/01/25 09:25 06/01/25 10:08 Diltiazem Hcl Cd 240 Mg Cap.24hr PO 240 mg QAM JUAN Administration Furosemide 20 mg 06/02/25 09:00 Furosemide 20 Mg Tablet PO DAILY JUAN Iron Sucrose 400 mg/ Iron 275 mls @ 78.571 mls/hr 06/01/25 15:30 06/01/25 15:43 Sucrose 100 mg/ Sodium IVPB 06/01/25 18:59 78.57 mls/hr Chloride ONCE ONE Administration Perflutren Lipid Microsphere 0 ml 05/30/25 11:49 Perflutren Lipid Microspheres 1.5 Ml Vial Diluted To 10 Ml Total Volume IV PUSH 06/02/25 11:49 ONCE PRN adequate visualization Protocol Polyethylene Glycol 119 gm 06/01/25 20:00 Polyethylene Glycol 3350 238 Gm Bottle PO 06/02/25 05:01 BID@[id number],2000 [facility] Radiology Results: ITS Impressions Chest X-Ray 05/30/25 08:39 Impression: 1: Cardiomegaly with mild interstitial edema. Labs Labs: Laboratory Results - last 24 hr 05/31/25 06/01/25 20:55 04:06 WBC 11.0 H RBC 4.08 L Hgb 9.5 L Hct 32.2 L MCV 78.9 L MCH 23.3 L MCHC 29.5 L RDW 17.7 H Plt Count 325 MPV 9.4 Immature Gran % (Auto) 0.5 Neut % (Auto) 81.6 H Lymph % (Auto) 11.5 L [place] % (Auto) 4.8 Eos % (Auto) 0.9 Baso % (Auto) 0.7 Lymph # (Auto) 1.27 [place] # (Auto) 0.5 Eos # (Auto) 0.1 Baso # (Auto) 0.1 Abs Immat Gran (auto) 0.05 H Absolute Neuts (auto) 9.0 H Absolute Nucleated RBC 0.000 Band Neutrophils % Not Reportable Nucleated RBC % 0.0 Platelet Estimate Adequate Hypochromasia 1+ Schistocytes None seen Sodium 135 L Potassium 3.9 Chloride 105 Carbon Dioxide 25 Anion Gap 5 BUN 8 Creatinine 0.61 L Estim Creat Clear Calc 74 Estimated GFR > 60 Glucose 96 Calcium 9.2 Magnesium 1.7 Total Bilirubin 0.8 AST 42 H ALT 22 Alkaline Phosphatase 108 Total Protein 5.9 L Albumin 3.4 L Urine Color Yellow Urine Appearance Clear Urine pH 7.0 Ur Specific [place] 1.009 Urine Protein Negative Urine Glucose (UA) Negative Urine Ketones Negative Ur Blood (Man) Negative Urine Nitrate Negative Urine Bilirubin Negative Urine Urobilinogen 1.0 Leukocyte Esterase Rfl Negative
[2025-06-02] VITALS (12 sets, daily range): BP systolic 112–129; BP diastolic 56–90; PULSE 63–122; RESP 16–20; TEMP 36.4–37; O2SAT 96–100
[2025-06-02 04:46] LABS: Hematocrit 37.1 % (37.0-47.0); Hemoglobin 10.7 g/dL (12.0-15.0); Immature Granulocyte Percent A 0.1 % (0-0.5); Lymphocytes Absolute Auto 2.19 K/mm3 (0.9-3.2); Mean Corpuscular HGB Conc 28.8 g/dl (32-36); Mean Corpuscular Hemoglobin 23.2 pg (26-34); Mean Corpuscular Volume 80.5 fl (80-100); Nucleated Red Blood Cells Absolute Auto 0.030 K/mm3 (0.0-0.012); Nucleated Red Blood Cells Perc 0.4 % (0.0-0.2); Platelet Count Result 356 k/mm3 (150-375); Red Blood Count 4.61 M/mm3 (4.2-5.4); White Blood Count 7.1 K/mm3 (4.5-10.0)
[2025-06-02 05:09] LABS: Alanine Aminotransferase 20 U/L (6-35); Albumin Level 3.6 g/dL (3.5-5.1); Alkaline Phosphatase 120 U/L (38-126); Anion Gap 9 mmol/L (4-12); Aspartate Amino Transferase 26 U/L (14-36); Bilirubin,Total 0.6 mg/dL (0.2-1.3); Blood Urea Nitrogen 7 mg/dL (7-17); Calcium 9.6 mg/dL (8.4-10.2); Carbon Dioxide 22 mmol/L (22-30); Chloride 106 mmol/L (98-107); Estimated CRCL calculation 77 ml/min; Estimated Glomerular Filt Rate > 60; Glucose 84 mg/dL (65-110); Magnesium 2.0 mg/dL (1.6-2.3); Potassium 3.7 mmol/L (3.4-5.0); Sodium 137 mmol/L (137-145); Total Protein 6.3 g/dL (6.3-8.2)
[2025-06-02 05:11] LABS: Band Neutrophils Percent 0 % (0-6); Ovalocytes 1+
[2025-06-02 05:12] LABS: Burr Cells 1+; Schistocytes None Seen
[2025-06-02] MEDS: dilTIAZem HCL CD 240 MG CAP.24HR PO (08:43)
[2025-06-02] MEDS: FUROSEMIDE 20 MG TABLET PO (08:43)
--- NOTE | 2025-06-02 09:30 | PM.PNCARD ---
Progress Note: A&P Assessment and Plan (1) Atrial fibrillation with rapid ventricular response: Code(s): I48.91 - Unspecified atrial fibrillation Status: Acute Plan 74-year-old lady with chronic atrial fibrillation rate is well controlled with diltiazem. Await findings of endoscopy today regarding her iron deficiency. No additional cardiac recommendations at this time Barber Alvarado MD [facility] Subjective Date/time seen: Date of service: 06/02/25 09:30 Interval history: Follow-up visit in this 74-year-old lady with: Chronic atrial fibrillation with rate control and anticoagulation strategy. Diltiazem resumed yesterday her rate is very well controlled with this agent. Anticipating endoscopy today be iron deficiency anemia. Because of her dementia she does not have any recollection of this. Otherwise she is pleasant cooperative and has no complaints today. Exam Const: General: comfortable and no acute distress Other: Pleasant white female appearing her stated age a comfortable and in no distress but with no short-term memory because of dementia HENMT: Mouth: Yes moist mucous membranes Eyes: Sclera: sclerae normal Neck: Neck: supple and no JVD Resp: Effort & Inspection: normal respiratory effort Auscultation: clear to auscultation bilaterally Cardio: Rate: regular rate Rhythm: abnormal rhythm irregularly irregular GI: GI Palp: Yes Soft to palpation Auscultation: normal bowel sounds Skin: General skin exam: normal color Neuro: Other: Alert and oriented x3 Extrem: General: normal to inspection Objective Data Vital Signs Vital Signs: Vital Signs - 24 hr 06/01/25 12:00 06/01/25 14:41 06/01/25 15:40 Temperature 36.8 C Pulse Rate 106 H 77 Respiratory Rate 16 Blood Pressure 111/58 L Pulse Oximetry 95 Oxygen Delivery Room Air 06/01/25 16:00 06/01/25 20:00 06/01/25 20:00 Temperature 36.7 C Pulse Rate 82 91 122 H Respiratory Rate 16 Blood Pressure 128/83 Pulse Oximetry 93 Oxygen Delivery 06/01/25 22:17 06/02/25 00:00 06/02/25 00:00 Temperature 36.8 C Pulse Rate 79 82 105 H Respiratory Rate 16 Blood Pressure 114/72 Pulse Oximetry 98 Oxygen Delivery 06/02/25 02:00 06/02/25 04:00 06/02/25 04:00 Temperature 36.6 C Pulse Rate 63 90 75 Respiratory Rate 16 Blood Pressure 124/90 Pulse Oximetry 100 Oxygen Delivery 06/02/25 06:00 06/02/25 07:32 Temperature 37.0 C Pulse Rate 67 86 Respiratory Rate 16 Blood Pressure 127/82 Pulse Oximetry 96 Oxygen Delivery Intake/Output Intake/Output: Intake & Output 05/30/25 05/31/25 06/01/25 06/02/25 23:59 23:59 23:59 23:59 Intake Total 560 2785 960 2200 Output Total 1650 1725 Balance 560 1135 -765 2200 Meds/Results Medications: Active Medications Generic Name Dose Route Start Last Admin Trade Name Freq PRN Reason Stop Dose Admin Acetaminophen 650 mg 05/30/25 09:33 Acetaminophen 650 Mg Suppository RECTAL Q6H PRN Mild Pain (1-3) or Fever Apixaban 5 mg 05/30/25 21:00 05/31/25 08:43 Apixaban 5 Mg Tablet PO 5 mg On Hold: 05/31/25 17:00 Q12HR JUAN Administration Resume: 06/02/25 17:12 Diltiazem HCl 240 mg 06/01/25 09:25 06/02/25 08:43 Diltiazem Hcl Cd 240 Mg Cap.24hr PO 240 mg QAM JUAN Administration Furosemide 20 mg 06/02/25 09:00 06/02/25 08:43 Furosemide 20 Mg Tablet PO 20 mg DAILY JUAN Administration Perflutren Lipid Microsphere 0 ml 05/30/25 11:49 Perflutren Lipid Microspheres 1.5 Ml Vial Diluted To 10 Ml Total Volume IV PUSH 06/02/25 11:49 ONCE PRN adequate visualization Protocol Radiology Results: ITS Impressions Chest X-Ray 05/30/25 08:39 Impression: 1: Cardiomegaly with mild interstitial edema. Labs Labs: Laboratory Results - last 24 hr 06/02/25 03:45 WBC 7.1 RBC 4.61 Hgb 10.7 L Hct 37.1 MCV 80.5 MCH 23.2 L MCHC 28.8 L RDW 18.2 H Plt Count 356 MPV 10.5 H Immature Gran % (Auto) 0.1 Neut % (Auto) 52.8 Lymph % (Auto) 30.8 [place] % (Auto) 12.5 H Eos % (Auto) 2.8 Baso % (Auto) 1.0 Lymph # (Auto) 2.19 [place] # (Auto) 0.9 H Eos # (Auto) 0.2 Baso # (Auto) 0.1 Abs Immat Gran (auto) 0.01 Absolute Neuts (auto) 3.8 Absolute Nucleated RBC 0.030 H Band Neutrophils % 0 Nucleated RBC % 0.4 H Platelet Estimate Adequate Ovalocytes 1+ [place] Cells 1+ Schistocytes None seen Sodium 137 Potassium 3.7 Chloride 106 Carbon Dioxide 22 Anion Gap 9 BUN 7 Creatinine 0.58 L Estim Creat Clear Calc 77 Estimated GFR > 60 Glucose 84 Calcium 9.6 Magnesium 2.0 Total Bilirubin 0.6 AST 26 ALT 20 Alkaline Phosphatase 120 Total Protein 6.3 Albumin 3.6
--- NOTE | 2025-06-02 11:26 | SUR.PREOP ---
Per Marciano RN patient has completed all prep ordered, and bowels are not ready for colonoscopy. Spoke with Dr. Viveros in regards to this. Per Dr. Viveros, cancel procedures for today, he will place ordered for more prep to be given tonight, and will try for both procedures again tomorrow 06/03.
--- NOTE | 2025-06-02 11:34 | WPDGIPROGNO ---
Progress Note: A&P Assessment and Plan (1) Iron deficiency anemia: Code(s): D50.9 - Iron deficiency anemia, unspecified Status: Acute Plan Unfortunately patient did not achieve an adequate bowel movement with administered preps. Will continue to prep throughout the day, keep the patient on clear liquids and rescheduled for tomorrow, EGD and colonoscopy. Subjective Date/time seen: 06/02/25 11:34 Objective Data Vital Signs Vital Signs: Vital Signs - 24 hr 06/01/25 12:00 06/01/25 14:41 06/01/25 15:40 Temperature 98.3 F Pulse Rate 106 H 77 Respiratory Rate 16 Blood Pressure 111/58 L Pulse Oximetry 95 Oxygen Delivery Room Air 06/01/25 16:00 06/01/25 20:00 06/01/25 20:00 Temperature 98.1 F Pulse Rate 82 91 122 H Respiratory Rate 16 Blood Pressure 128/83 Pulse Oximetry 93 Oxygen Delivery 06/01/25 22:17 06/02/25 00:00 06/02/25 00:00 Temperature 98.2 F Pulse Rate 79 82 105 H Respiratory Rate 16 Blood Pressure 114/72 Pulse Oximetry 98 Oxygen Delivery 06/02/25 02:00 06/02/25 04:00 06/02/25 04:00 Temperature 98 F Pulse Rate 63 90 75 Respiratory Rate 16 Blood Pressure 124/90 Pulse Oximetry 100 Oxygen Delivery 06/02/25 06:00 06/02/25 07:32 06/02/25 08:00 Temperature 98.6 F Pulse Rate 67 86 Respiratory Rate 16 Blood Pressure 127/82 Pulse Oximetry 96 Oxygen Delivery Room Air 06/02/25 08:00 06/02/25 10:00 Temperature Pulse Rate 95 88 Respiratory Rate Blood Pressure Pulse Oximetry Oxygen Delivery Intake/Output Intake/Output: Intake & Output 05/30/25 05/31/25 06/01/25 06/02/25 23:59 23:59 23:59 23:59 Intake Total 560 2785 960 2200 Output Total 1650 1725 Balance 560 1135 -765 2200 Meds/Results Medications: Active Medications Generic Name Dose Route Start Last Admin Trade Name Freq PRN Reason Stop Dose Admin Acetaminophen 650 mg 05/30/25 09:33 Acetaminophen 650 Mg Suppository RECTAL Q6H PRN Mild Pain (1-3) or Fever Apixaban 5 mg 05/30/25 21:00 05/31/25 08:43 Apixaban 5 Mg Tablet PO 5 mg On Hold: 05/31/25 17:00 Q12HR JUAN Administration Resume: 06/02/25 17:12 Diltiazem HCl 240 mg 06/01/25 09:25 06/02/25 08:43 Diltiazem Hcl Cd 240 Mg Cap.24hr PO 240 mg QAM JUAN Administration Furosemide 20 mg 06/02/25 09:00 06/02/25 08:43 Furosemide 20 Mg Tablet PO 20 mg DAILY JUAN Administration Perflutren Lipid Microsphere 0 ml 05/30/25 11:49 Perflutren Lipid Microspheres 1.5 Ml Vial Diluted To 10 Ml Total Volume IV PUSH 06/02/25 11:49 ONCE PRN adequate visualization Protocol Polyethylene Glycol 119 gm 06/02/25 20:00 Polyethylene Glycol 3350 238 Gm Bottle PO 06/03/25 05:01 BID@0500,2000 [facility] Radiology Results: ITS Impressions Chest X-Ray 05/30/25 08:39 Impression: 1: Cardiomegaly with mild interstitial edema. Labs Labs: Laboratory Results - last 24 hr 06/02/25 03:45 WBC 7.1 RBC 4.61 Hgb 10.7 L Hct 37.1 MCV 80.5 MCH 23.2 L MCHC 28.8 L RDW 18.2 H Plt Count 356 MPV 10.5 H Immature Gran % (Auto) 0.1 Neut % (Auto) 52.8 Lymph % (Auto) 30.8 [place] % (Auto) 12.5 H Eos % (Auto) 2.8 Baso % (Auto) 1.0 Lymph # (Auto) 2.19 [place] # (Auto) 0.9 H Eos # (Auto) 0.2 Baso # (Auto) 0.1 Abs Immat Gran (auto) 0.01 Absolute Neuts (auto) 3.8 Absolute Nucleated RBC 0.030 H Band Neutrophils % 0 Nucleated RBC % 0.4 H Platelet Estimate Adequate Ovalocytes 1+ [place] Cells 1+ Schistocytes None seen Sodium 137 Potassium 3.7 Chloride 106 Carbon Dioxide 22 Anion Gap 9 BUN 7 Creatinine 0.58 L Estim Creat Clear Calc 77 Estimated GFR > 60 Glucose 84 Calcium 9.6 Magnesium 2.0 Total Bilirubin 0.6 AST 26 ALT 20 Alkaline Phosphatase 120 Total Protein 6.3 Albumin 3.6
--- NOTE | 2025-06-02 15:37 | PC.NURSE ---
Patient transferred from IMU to [facility] at 1530.
--- NOTE | 2025-06-02 17:01 | PM.IMPN ---
Progress Note: A&P Assessment and Plan (1) Atrial fibrillation with rapid ventricular response: Code(s): I48.91 - Unspecified atrial fibrillation Status: Acute Assessment and Plan: Patient with AFib w/ RVR on admission. Cardiology consulted and apprecaite their input. Heart rate better controlled and currently only on Diltiazem CD 240 mg Metoprolol stopped. Eliquis on hold due to possible GI bleed (2) CHF (congestive heart failure): Code(s): I50.9 - Heart failure, unspecified Status: Acute Assessment and Plan: Presented with worsening SOB. BNP 3310 with CXR showing cardiomegaly with mild interstitial edema. [place] patient had acute diastolic CHF exacerbation ECHO from January 29 showed EF 55-60%, with abnormal left ventricular function She was started on IV Lasix with good results. Appears euvolemic and has been changed to oral Lasix. Continue Lasix 20mg daily (3) Iron deficiency anemia: Code(s): D50.9 - Iron deficiency anemia, unspecified Status: Acute Assessment and Plan: Patient noted to have anemia in the 9-10 range this year. Hemoglobin was 11 one year ago. Iron studies consistent with iron deficiency anemia. Eliquis held. GI consulted. Iron sucrose IV x1 given Endoscopy planned but patient did not achieve an adequate prep. Plan to keep patient on clear liquid diet and reschedule endoscopy for tomorrow Appreciate GI input Plan Dementia -not on Aricept. Resume Namenda. DVT prophylaxis - SCD Full code Subjective Date/time seen: 06/02/25 17:01 Interval history: 74yo female with dementia, HTN and Afib who presented to the ER by EMS from [facility] for worsening SOB. Assuming care. Chart reviewed. No chest pain or shortness of breath. No nausea or vomiting. She has been walking to the bathroom. No dyspnea on exertion. Exam Narrative: AF 98.6 127/82 91 16 96% ra Gen - NARD Chest - CTA bilaterally, nml RR CV -irregularly irregular. Telemetry showing AFib with controlled rate and PVCs Abd - Soft, NT/ND, Positive BS Ext - No pedal edema Neuro - Alert but confused. Psych - Nml mood and affect Skin - Warm and dry Objective Data Vital Signs Vital Signs: Vital Signs - 24 hr 06/01/25 20:00 06/01/25 20:00 06/01/25 22:17 Temperature 98.1 F Pulse Rate 91 122 H 79 Respiratory Rate 16 Blood Pressure 128/83 Pulse Oximetry 93 Oxygen Delivery 06/02/25 00:00 06/02/25 00:00 06/02/25 02:00 Temperature 98.2 F Pulse Rate 82 105 H 63 Respiratory Rate 16 Blood Pressure 114/72 Pulse Oximetry 98 Oxygen Delivery 06/02/25 04:00 06/02/25 04:00 06/02/25 06:00 Temperature 98 F Pulse Rate 90 75 67 Respiratory Rate 16 Blood Pressure 124/90 Pulse Oximetry 100 Oxygen Delivery 06/02/25 07:32 06/02/25 08:00 06/02/25 08:00 Temperature 98.6 F Pulse Rate 86 95 Respiratory Rate 16 Blood Pressure 127/82 Pulse Oximetry 96 Oxygen Delivery Room Air 06/02/25 10:00 06/02/25 12:00 06/02/25 16:15 Temperature Pulse Rate 88 91 Respiratory Rate Blood Pressure Pulse Oximetry Oxygen Delivery Room Air Intake/Output Intake/Output: Intake & Output 05/30/25 05/31/25 06/01/25 06/02/25 23:59 23:59 23:59 23:59 Intake Total 560 2785 960 2320 Output Total 1650 1725 Balance 560 8101 -971 2320 Meds/Results Medications: Active Medications Generic Name Dose Route Start Last Admin Trade Name Freq PRN Reason Stop Dose Admin Acetaminophen 650 mg 05/30/25 09:33 Acetaminophen 650 Mg Suppository RECTAL Q6H PRN Mild Pain (1-3) or Fever Apixaban 5 mg 05/30/25 21:00 05/31/25 08:43 Apixaban 5 Mg Tablet PO 5 mg On Hold: 05/31/25 17:00 Q12HR JUAN Administration Resume: 06/02/25 17:12 Diltiazem HCl 240 mg 06/01/25 09:25 06/02/25 08:43 Diltiazem Hcl Cd 240 Mg Cap.24hr PO 240 mg QAM JUAN Administration Furosemide 20 mg 06/02/25 09:00 06/02/25 08:43 Furosemide 20 Mg Tablet PO 20 mg DAILY JUAN Administration Polyethylene Glycol 119 gm 06/02/25 20:00 Polyethylene Glycol 3350 238 Gm Bottle PO 06/03/25 05:01 BID@0500,2000 [facility] Radiology Results: ITS Impressions Chest X-Ray 05/30/25 08:39 Impression: 1: Cardiomegaly with mild interstitial edema. Labs Labs: Laboratory Results - last 24 hr 06/02/25 03:45 WBC 7.1 RBC 4.61 Hgb 10.7 L Hct 37.1 MCV 80.5 MCH 23.2 L MCHC 28.8 L RDW 18.2 H Plt Count 356 MPV 10.5 H Immature Gran % (Auto) 0.1 Neut % (Auto) 52.8 Lymph % (Auto) 30.8 [place] % (Auto) 12.5 H Eos % (Auto) 2.8 Baso % (Auto) 1.0 Lymph # (Auto) 2.19 [place] # (Auto) 0.9 H Eos # (Auto) 0.2 Baso # (Auto) 0.1 Abs Immat Gran (auto) 0.01 Absolute Neuts (auto) 3.8 Absolute Nucleated RBC 0.030 H Band Neutrophils % 0 Nucleated RBC % 0.4 H Platelet Estimate Adequate Ovalocytes 1+ [place] Cells 1+ Schistocytes None seen Sodium 137 Potassium 3.7 Chloride 106 Carbon Dioxide 22 Anion Gap 9 BUN 7 Creatinine 0.58 L Estim Creat Clear Calc 77 Estimated GFR > 60 Glucose 84 Calcium 9.6 Magnesium 2.0 Total Bilirubin 0.6 AST 26 ALT 20 Alkaline Phosphatase 120 Total Protein 6.3 Albumin 3.6
[2025-06-02] MEDS: MELATONIN 5 MG TABLET PO (21:23)
[2025-06-02] MEDS: MEMANTINE 10 MG TABLET PO (21:23)
[2025-06-03] VITALS (14 sets, daily range): BP systolic 109–120; BP diastolic 51–80; PULSE 62–134; RESP 16–24; TEMP 36.1–37; O2SAT 92–100
[2025-06-03 05:33] LABS: Hematocrit 34.3 % (37.0-47.0); Hemoglobin 10.1 g/dL (12.0-15.0); Mean Corpuscular HGB Conc 29.4 g/dl (32-36); Mean Corpuscular Hemoglobin 23.5 pg (26-34); Mean Corpuscular Volume 79.8 fl (80-100); Platelet Count Result 398 k/mm3 (150-375); Red Blood Count 4.30 M/mm3 (4.2-5.4); White Blood Count 6.0 K/mm3 (4.5-10.0)
[2025-06-03 05:41] LABS: Anion Gap 7 mmol/L (4-12); Blood Urea Nitrogen 3 mg/dL (7-17); Calcium 9.5 mg/dL (8.4-10.2); Carbon Dioxide 25 mmol/L (22-30); Chloride 105 mmol/L (98-107); Estimated CRCL calculation 72 ml/min; Estimated Glomerular Filt Rate > 60; Glucose 102 mg/dL (65-110); Magnesium 1.8 mg/dL (1.6-2.3); Potassium 3.6 mmol/L (3.4-5.0); Sodium 137 mmol/L (137-145)
[2025-06-03] MEDS: LEVOTHYROXINE SODIUM 88 MCG TABLET PO (08:14)
[2025-06-03] MEDS: dilTIAZem HCL CD 240 MG CAP.24HR PO (08:14)
[2025-06-03] MEDS: LACTATED RINGERS 1,000 ML 150 ML IV CONT (10:09)
[2025-06-03] MEDS: SIMETHICONE ORAL SUSPENSION 20 MG/0.3 ML 30 ML BOTTLE 1.8 ML PO (10:10)
--- NOTE | 2025-06-03 10:43 | WPDANESEPPF ---
Anes - Initial Pre Proc Eval Procedure: Operation Date: 06/03/25 11:15 Proposed Procedures p EGD & Diagnostic Colonoscopy - Unruly Viveros MD Date/Time: 06/03/25 10:43 Surgeon: Alexa Paniagua MD Pre Op Diagnosis: Upper respiratory viral infection, Afib with RVR, Patient Data Age: 74 Gender: F Height: 1.65 m Weight: 84.8 kg Last Vital Signs Temp 36.5 C 06/03/25 10:13 Pulse 68 06/03/25 10:13 Resp 16 06/03/25 10:13 BP 117/61 06/03/25 10:13 Pulse Ox 96 06/03/25 10:13 O2 Del Method Room Air 06/03/25 10:13 FiO2 21 06/03/25 08:43 Allergies Allergy/AdvReac Type Severity Reaction Status Date / Time amoxicillin Allergy Unknown Verified 06/03/25 10:11 lithium Allergy kidney Verified 06/03/25 10:11 failure Penicillins Allergy Hives Verified 06/03/25 10:11 sulfamethoxazole (From Allergy Unknown Verified 06/03/25 10:11 Bactrim) trimethoprim (From Bactrim) Allergy Unknown Verified 06/03/25 10:11 codeine AdvReac Dizziness,n Verified 06/03/25 10:11 ausea/vomit ing morphine AdvReac Vomiting Verified 06/03/25 10:11 olanzapine AdvReac Confusion Verified 06/03/25 10:11 Home Medications ?Medication ?Instructions ?Recorded ?Confirmed ?Type aspirin 81 mg chewable tablet 81 mg PO DAILY 05/03/24 05/30/25 History cyanocobalamin (vitamin B-12) 500 500 mcg PO DAILY 05/03/24 05/30/25 History mcg tablet donepezil 10 mg tablet 10 mg PO DAILY 05/03/24 05/30/25 History levothyroxine 88 mcg tablet 88 mcg PO DAILY 05/03/24 05/30/25 History albuterol 90 mcg/actuation aerosol 180 mcg inhalation Q4H PRN wheezing 01/29/25 05/30/25 History inhaler cholecalciferol (vitamin D3) 25 25 mcg PO DAILY 01/29/25 05/30/25 History mcg (1,000 unit) tablet lamotrigine 25 mg tablet 25 mg PO Q12H 01/29/25 05/30/25 History melatonin 10 mg capsule 5 mg PO HS 01/29/25 05/30/25 History naltrexone 50 mg tablet 50 mg PO DAILY 01/29/25 05/30/25 History apixaban 5 mg tablet (Eliquis) 5 mg PO Q12HR #60 tabs 02/02/25 05/30/25 Rx memantine 10 mg tablet 10 mg PO QHS #30 tabs 02/02/25 05/30/25 Rx diltiazem HCl 240 mg 240 mg PO QAM #30 tabs 02/03/25 05/30/25 Rx tablet,extended release 24 hr (Cardizem LA) L.acidophil-L.casei-B.bifid-B.longum-FOS 1 cap PO DAILY 05/30/25 05/30/25 History 2 billion cell-50 mg capsule (Probiotic Blend) acetaminophen 500 mg tablet 1,000 mg PO Q4-6H PRN fever or pain 05/30/25 05/30/25 History nkljhaiz-kejh-zeqk 8 mg-folic 400 1 tablet PO DAILY 05/30/25 05/30/25 History mcg-K 50 mcg-lutein 300 mcg tablet (Multivitamin Women 50 Plus) Laboratory Tests 06/03/25 06/03/25 05:19 05:20 WBC 6.0 K/mm3 (4.5-10.0) RBC 4.30 M/mm3 (4.2-5.4) Hgb 10.1 L g/dL (12.0-15.0) Hct 34.3 L % (37.0-47.0) MCV 79.8 L fl (80-100) MCH 23.5 L pg (26-34) MCHC 29.4 L g/dl (32-36) RDW 18.3 H % (11.5-14.5) Plt Count 398 H k/mm3 (150-375) MPV 9.9 fl (7.4-10.4) Sodium 137 mmol/L (137-145) Potassium 3.6 mmol/L (3.4-5.0) Chloride 105 mmol/L (98-107) Carbon Dioxide 25 mmol/L (22-30) Anion Gap 7 mmol/L (4-12) BUN 3 L mg/dL (7-17) Creatinine 0.62 L mg/dL (0.7-1.0) Estim Creat Clear Calc 72 ml/min Estimated GFR > 60 (59 - ) Glucose 102 mg/dL (65-110) Calcium 9.5 mg/dL (8.4-10.2) Magnesium 1.8 mg/dL (1.6-2.3) Patient hx anesthesia problems: none Family hx anesthesia problems: none Results Review: All pre-operative results and documents have been reviewed as part of the pre-operative evaluation. [facility] Past Medical History Medical History (Updated 06/03/25 @ 10:44 by Anson Ron DO) Bipolar disorder Hyperlipidemia Hypertension CHF (congestive heart failure) Dementia of the Alzheimer's type Accidental fall Family History Family History Mother Hypertension Alzheimer dementia Sibling Hypertension Social History Social History Smoking status: Never smoker Alcohol intake: never Drinks per week: 1 Substance use: never Substance use type: does not use Do You Feel Safe in your Home?: Yes Lack of Transportation: No Lack of Food: Never True Current Housing: I Have Housing Concerned About Future Housing: No Difficulty Paying Gas/Electric Bills: No Difficulty Paying for Meds: No Currently Unemployed: No Education: Decline to Answer Difficulty w/ Childcare or Family Care: No Spiritual care concerns: No Anes - Eval Final PreProcedure Day of Procedure 06/03/25 10:43 Patient weight: obese Heart: regular rate and rhythm Lungs: clear to auscultation Airway: Mallampati scale class II Neurological: alert and oriented Last oral intake: >/= 8 hours ASA classification: IV Emergent: no Anesthetic plan: proceed Anesthesia type and monitoring: general GIVS and standard monitoring Results Review: All pre-operative results and documents have been reviewed as part of the pre-operative evaluation. Informed Consent: The patient's anesthetic plan and its attendant risks and benefits were discussed with the patient/family/POA. Questions were solicited and answers provided to the satisfaction of the patient/family/POA.
--- NOTE | 2025-06-03 11:05 | SUR.OPER ---
EGD: [id number] Clon: [id number]
--- NOTE | 2025-06-03 11:16 | S_PTH ---
PATIENT: Kriss Worley LOC: [id number] U#:[id number] AGE/SX: 74/F ROOM: 259 RE05/31/[address]: Papi Santana MD : 1950 BED: 01 DIS: 06/04/2025 SPEC #: [id number] RECD: 06/03/25 13:15 STATUS: OCTAVIO RELouie #: [id number] SHANE: 06/03/25 11:[address]: Unruly Viveros DEPT: [facility] Surgical RECD BY: Alma Horton ENTERED: 06/03/25 13:16 SP TYPE: Surgical OTHR DR: Nan Blair, PA MD Alexa Dominguez MD Tissues: A - Esophageal Biopsy B - Colon Polypectomy Procedures: Pas with Diastase Grocotts Methenamine Stain Hematoxylin and Eosin Stain Gross and Microscopic Level 4
[2025-06-03] MEDS: SIMETHICONE ORAL SUSPENSION 20 MG/0.3 ML 30 ML BOTTLE 0.6 ML IRRIGATION (11:29)
--- NOTE | 2025-06-03 11:45 | WPDGIPROGNO ---
Progress Note: A&P Assessment and Plan (1) Iron deficiency anemia: Code(s): D50.9 - Iron deficiency anemia, unspecified Status: Acute Assessment and Plan: The patient has evidence of a prior gastric bypass surgery, which was not expected from chart review. There are no colon or gastric neoplasms. The presence of gastric bypass explains iron deficiency anemia due to iron malabsorption. The rest of the nutritional parameters that were studied, including B12, folic calcium were normal. Will obtain zinc levels which can be associated with iron deficiency in these patients. We recommend complete in iron infusion and consulting the nutrition on service for maintenance and better counseling. Will sign off for now, please let us know if there is any other matters pertaining to our specialty. Subjective Date/time seen: 06/03/25 11:45 Objective Data Vital Signs Vital Signs: Vital Signs - 24 hr 06/02/25 12:00 06/02/25 16:00 06/02/25 16:00 Temperature 98.6 F Pulse Rate 91 78 95 Respiratory Rate 16 Blood Pressure 112/56 L Pulse Oximetry 98 Oxygen Delivery Fraction of Inspired Oxygen 06/02/25 16:15 06/02/25 20:00 06/02/25 20:08 Temperature Pulse Rate 122 H 88 Respiratory Rate Blood Pressure Pulse Oximetry 97 Oxygen Delivery Room Air Room Air Fraction of Inspired Oxygen 06/02/25 21:40 06/03/25 00:00 06/03/25 04:00 Temperature 97.6 F Pulse Rate 86 70 62 Respiratory Rate 20 Blood Pressure 129/61 Pulse Oximetry 98 Oxygen Delivery Fraction of Inspired Oxygen 06/03/25 05:46 06/03/25 08:12 06/03/25 08:43 Temperature 97.4 F L 98 F Pulse Rate 75 95 95 Respiratory Rate 18 16 16 Blood Pressure 115/65 120/79 Pulse Oximetry 95 98 98 Oxygen Delivery Room Air Fraction of Inspired Oxygen 21 06/03/25 08:43 06/03/25 10:13 06/03/25 11:35 Temperature 97.7 F Pulse Rate 71 68 90 Respiratory Rate 16 24 H Blood Pressure 117/61 112/56 L Pulse Oximetry 96 100 Oxygen Delivery Room Air Room Air Fraction of Inspired Oxygen 06/03/25 11:45 Temperature Pulse Rate 73 Respiratory Rate 23 H Blood Pressure 109/51 L Pulse Oximetry 100 Oxygen Delivery Room Air Fraction of Inspired Oxygen Intake/Output Intake/Output: Intake & Output 05/31/25 06/01/25 06/02/25 06/03/25 23:59 23:59 23:59 23:59 Intake Total 2785 960 2600 250 Output Total 9950 1725 Balance 1135 -765 2600 250 Meds/Results Medications: Active Medications Generic Name Dose Route Start Last Admin Trade Name Freq PRN Reason Stop Dose Admin Acetaminophen 650 mg 05/30/25 09:33 Acetaminophen 650 Mg Suppository RECTAL Q6H PRN Mild Pain (1-3) or Fever Albuterol 2 puff 06/02/25 17:29 Albuterol Sulfate (*Sp) Aerosol 1 Puff INHALATION Q4H PRN wheezing Apixaban 5 mg 05/30/25 21:00 05/31/25 08:43 Apixaban 5 Mg Tablet PO 5 mg On Hold: 06/02/25 19:46 Q12HR JUAN Administration Resume: 06/03/25 21:00 Comment: HOLD X2 DOSES Cyanocobalamin 500 mcg 06/03/25 09:00 Cyanocobalamin 500 Mcg Tablet PO DAILY JUAN Diltiazem HCl 240 mg 06/01/25 09:25 06/03/25 08:14 Diltiazem Hcl Cd 240 Mg Cap.24hr PO 240 mg QAM JUAN Administration Furosemide 20 mg 06/02/25 09:00 06/02/25 08:43 Furosemide 20 Mg Tablet PO 20 mg DAILY JUAN Administration Lactated Ringer's 1,000 mls @ 150 mls/hr 06/03/25 09:05 06/03/25 11:34 Lr - Lactated Ringers Iv IV CONT 150 mls/hr .[id number] JUAN Infusion Lamotrigine 25 mg 06/02/25 21:00 06/02/25 21:23 Lamotrigine 25 Mg Tablet PO 25 mg Q12HR JUAN Administration Levothyroxine Sodium 88 mcg 06/03/25 06:30 06/03/25 08:14 Levothyroxine Sodium 88 Mcg Tablet PO 88 mcg DAILY@0630 JUAN Administration Melatonin 5 mg 06/02/25 21:00 06/02/25 21:23 Melatonin 5 Mg Tablet PO 5 mg HS JUAN Administration Memantine 10 mg 06/02/25 21:00 06/02/25 21:23 Memantine 10 Mg Tablet PO 10 mg QHS JUAN Administration Multivitamins/Calcium 1 tablet 06/03/25 09:00 Therapeutic Multivitamins/Minerals Tab (*Bkc) PO DAILY [facility] Simethicone 1.8 ml 06/03/25 10:10 06/03/25 10:10 Simethicone Oral Suspension 20 Mg/0.3 Ml 30 Ml Bottle PO 1.8 ml ONCE PRN Administration Gas Discomfort Vitamin D 25 mcg 06/03/25 09:00 Cholecalciferol (Vitamin D3) 25 Mcg (1,000 Units) Tablet PO DAILY [facility] Radiology Results: ITS Impressions Chest X-Ray 05/30/25 08:39 Impression: 1: Cardiomegaly with mild interstitial edema. Labs Labs: Laboratory Results - last 24 hr 06/03/25 06/03/25 05:19 05:20 WBC 6.0 RBC 4.30 Hgb 10.1 L Hct 34.3 L MCV 79.8 L MCH 23.5 L MCHC 29.4 L RDW 18.3 H Plt Count 398 H MPV 9.9 Sodium 137 Potassium 3.6 Chloride 105 Carbon Dioxide 25 Anion Gap 7 BUN 3 L Creatinine 0.62 L Estim Creat Clear Calc 72 Estimated GFR > 60 Glucose 102 Calcium 9.5 Magnesium 1.8
[2025-06-03] MEDS: CHOLECALCIFEROL (VITAMIN D3) 25 MCG (1,000 UNITS) TABLET PO (12:46)
[2025-06-03] MEDS: FUROSEMIDE 20 MG TABLET PO (12:46)
[2025-06-03] MEDS: THERAPEUTIC MULTIVITAMINS/MINERALS TAB (*BKC) 1 TABLET PO (12:46)
[2025-06-03] MEDS: CYANOCOBALAMIN 500 MCG TABLET PO (12:46)
--- NOTE | 2025-06-03 17:11 | PC.NURSE ---
RN spoke to patient's son Elpidio and and gave them update on procedures and results.
--- NOTE | 2025-06-03 18:27 | PC.NURSE ---
RN called MD Santana about patient's HR on telemetry. MD Santana said he would come up to assess patient and did not give new orders.
--- NOTE | 2025-06-03 18:35 | PM.IMPN ---
Progress Note: A&P Assessment and Plan (1) Atrial fibrillation with rapid ventricular response: Code(s): I48.91 - Unspecified atrial fibrillation Status: Acute Assessment and Plan: Patient with AFib w/ RVR on admission. Cardiology consulted and appreciate their input. TSH normal in February 2025 Resumed on home Diltiazem CD 240 mg daily. Metoprolol added at low dose but now stopped. Heart mostly better controlled but higher this evening. Eliquis was on hold but now resumed. Add back low dose Toprol. (2) CHF (congestive heart failure): Code(s): I50.9 - Heart failure, unspecified Status: Acute Assessment and Plan: Presented with worsening SOB. BNP 3310 with CXR showing cardiomegaly with mild interstitial edema. [place] patient had acute diastolic CHF exacerbation ECHO from January 29 showed EF 55-60% with abnormal LV diastolic function She was started on IV Lasix with good results. Appears euvolemic and has been changed to oral Lasix. Continue Lasix 20mg daily (3) Iron deficiency anemia: Code(s): D50.9 - Iron deficiency anemia, unspecified Status: Acute Assessment and Plan: Patient noted to have anemia in the 9-10 range this year. Hemoglobin was 11 one year ago. Iron studies consistent with iron deficiency anemia. Eliquis held. GI consulted. Iron sucrose IV x1 given EGD showing possible candidiasis esophagitis in the distal esophagus. Gastroenterostomy was present with no evidence of neoplasm or ulcerative lesions. [place] showing cecal polyp that was removed, sigmoid diverticula and internal hemorrhoids Appreciate GI input (4) Julienne esophagitis: Code(s): B37.81 - Candidal esophagitis Status: Acute Assessment and Plan: Possible julienne esophagitis. Awaiting biopst results. Holding on treatment Plan Dementia -not on Aricept. Resumed Namenda. DVT prophylaxis - SCD Full code Subjective Date/time seen: 06/03/25 18:35 Interval history: 74yo female with dementia, HTN and Afib who presented to the ER by EMS from [facility] for worsening SOB. She feels well. She is alert but confused. Review of Systems Review of Systems: ROS unobtainable: Yes unobtainable due to mental status Exam Narrative: AF 97.7 116/75 104 20 96% ra Gen - NARD Chest - CTA bilaterally, nml RR CV -irregularly irregular. Telemetry showing AFib with mostly controlled rate with occasional episodes of tachycardia Abd - Soft, NT/ND, Positive BS Ext - No pedal edema Neuro - Alert but confused. Psych - Nml mood and affect Skin - Warm and dry Objective Data Vital Signs Vital Signs: Vital Signs - 24 hr 06/02/25 20:00 06/02/25 20:08 06/02/25 21:40 Temperature 97.6 F Pulse Rate 122 H 88 86 Respiratory Rate 20 Blood Pressure 129/61 Pulse Oximetry 97 98 Oxygen Delivery Room Air Fraction of Inspired Oxygen 21 06/03/25 00:00 06/03/25 04:00 06/03/25 05:46 Temperature 97.4 F L Pulse Rate 70 62 75 Respiratory Rate 18 Blood Pressure 115/65 Pulse Oximetry 95 Oxygen Delivery Fraction of Inspired Oxygen 06/03/25 08:12 06/03/25 08:43 06/03/25 08:43 Temperature 98 F Pulse Rate 95 95 71 Respiratory Rate 16 16 Blood Pressure 120/79 Pulse Oximetry 98 98 Oxygen Delivery Room Air Fraction of Inspired Oxygen 06/03/25 10:13 06/03/25 11:35 06/03/25 11:45 Temperature 97.7 F Pulse Rate 68 90 73 Respiratory Rate 16 24 H 23 H Blood Pressure 117/61 112/56 L 109/51 L Pulse Oximetry 96 100 100 Oxygen Delivery Room Air Room Air Room Air Fraction of Inspired Oxygen 06/03/25 11:55 06/03/25 16:00 Temperature Pulse Rate 85 104 H Respiratory Rate 20 Blood Pressure 116/75 Pulse Oximetry 96 Oxygen Delivery Room Air Fraction of Inspired Oxygen Intake/Output Intake/Output: Intake & Output 05/31/25 06/01/25 06/02/25 06/03/25 23:59 23:59 23:59 23:59 Intake Total 2785 960 2600 794 Output Total 1650 1725 Balance 1135 -765 2600 794 Meds/Results Medications: Active Medications Generic Name Dose Route Start Last Admin Trade Name Freq PRN Reason Stop Dose Admin Acetaminophen 650 mg 05/30/25 09:33 Acetaminophen 650 Mg Suppository RECTAL Q6H PRN Mild Pain (1-3) or Fever Albuterol 2 puff 06/02/25 17:29 Albuterol Sulfate (*Sp) Aerosol 1 Puff INHALATION Q4H PRN wheezing Apixaban 5 mg 05/30/25 21:00 05/31/25 08:43 Apixaban 5 Mg Tablet PO 5 mg Q12HR JUAN Administration Cyanocobalamin 500 mcg 06/03/25 09:00 06/03/25 12:46 Cyanocobalamin 500 Mcg Tablet PO 500 mcg DAILY JUAN Administration Diltiazem HCl 240 mg 06/01/25 09:25 06/03/25 08:14 Diltiazem Hcl Cd 240 Mg Cap.24hr PO 240 mg QAM JUAN Administration Furosemide 20 mg 06/02/25 09:00 06/03/25 12:46 Furosemide 20 Mg Tablet PO 20 mg DAILY JAUN Administration Lamotrigine 25 mg 06/02/25 21:00 06/03/25 12:46 Lamotrigine 25 Mg Tablet PO 25 mg Q12HR JUAN Administration Levothyroxine Sodium 88 mcg 06/03/25 06:30 06/03/25 08:14 Levothyroxine Sodium 88 Mcg Tablet PO 88 mcg DAILY@0630 JUAN Administration Melatonin 5 mg 06/02/25 21:00 06/02/25 21:23 Melatonin 5 Mg Tablet PO 5 mg HS JUAN Administration Memantine 10 mg 06/02/25 21:00 06/02/25 21:23 Memantine 10 Mg Tablet PO 10 mg QHS JUAN Administration Multivitamins/Calcium 1 tablet 06/03/25 09:00 06/03/25 12:46 Therapeutic Multivitamins/Minerals Tab (*Bkc) PO 1 tablet DAILY JUAN Administration Simethicone 1.8 ml 06/03/25 10:10 06/03/25 10:10 Simethicone Oral Suspension 20 Mg/0.3 Ml 30 Ml Bottle PO 1.8 ml ONCE PRN Administration Gas Discomfort Vitamin D 25 mcg 06/03/25 09:00 06/03/25 12:46 Cholecalciferol (Vitamin D3) 25 Mcg (1,000 Units) Tablet PO 25 mcg DAILY JUAN Administration Radiology Results: ITS Impressions Chest X-Ray 05/30/25 08:39 Impression: 1: Cardiomegaly with mild interstitial edema. Labs Labs: Laboratory Results - last 24 hr 06/03/25 06/03/25 05:19 05:20 WBC 6.0 RBC 4.30 Hgb 10.1 L Hct 34.3 L MCV 79.8 L MCH 23.5 L MCHC 29.4 L RDW 18.3 H Plt Count 398 H MPV 9.9 Sodium 137 Potassium 3.6 Chloride 105 Carbon Dioxide 25 Anion Gap 7 BUN 3 L Creatinine 0.62 L Estim Creat Clear Calc 72 Estimated GFR > 60 Glucose 102 Calcium 9.5 Magnesium 1.8
[2025-06-03] MEDS: MELATONIN 5 MG TABLET PO (20:12)
[2025-06-03] MEDS: APIXABAN 5 MG TABLET PO (20:12)
[2025-06-03] MEDS: MEMANTINE 10 MG TABLET PO (20:12)
[2025-06-03] MEDS: METOPROLOL SUCCINATE EXT REL 12.5 MG TABCR PO (20:12)
[2025-06-03 21:26] LABS: Thyroid Stimulating Hormone Reflex 4.340 uIU/mL (0.465-4.68)
[2025-06-03 22:03] LABS: Free T4 Free Thyroxine Reflex 1.28 ng/dL (0.78-2.19)
[2025-06-03 23:10] LABS: Total Triiodothyronine (T3) 0.86 NG/ML (0.82-1.58)
[2025-06-04] VITALS: PULSE 98
[2025-06-04 04:00] VITALS: PULSE 60
[2025-06-04 05:29] VITALS: BP 124/77; PULSE 83; RESP 18; TEMP 36.3; O2SAT 99
[2025-06-04] MEDS: LEVOTHYROXINE SODIUM 88 MCG TABLET PO (06:37)
[2025-06-04 08:00] VITALS: PULSE 89
[2025-06-04] MEDS: CYANOCOBALAMIN 500 MCG TABLET PO (08:32)
[2025-06-04] MEDS: THERAPEUTIC MULTIVITAMINS/MINERALS TAB (*BKC) 1 TABLET PO (08:32)
[2025-06-04] MEDS: CHOLECALCIFEROL (VITAMIN D3) 25 MCG (1,000 UNITS) TABLET PO (08:32)
[2025-06-04] MEDS: APIXABAN 5 MG TABLET PO (08:32)
[2025-06-04] MEDS: FUROSEMIDE 20 MG TABLET PO (08:32)
[2025-06-04] MEDS: dilTIAZem HCL CD 240 MG CAP.24HR PO (08:32)
[2025-06-04 12:00] VITALS: PULSE 79
--- NOTE | 2025-06-04 13:01 | P.DS_ITS ---
DS: Admitting Diagnosis Discharge Date 06/04/25 Admitting Diagnosis Shortness of breath DS: Discharge Diagnosis Discharge Diagnosis (1) Atrial fibrillation with rapid ventricular response: Code(s): I48.91 - Unspecified atrial fibrillation Status: Acute (2) CHF (congestive heart failure): Code(s): I50.9 - Heart failure, unspecified Status: Acute (3) Iron deficiency anemia: Code(s): D50.9 - Iron deficiency anemia, unspecified Status: Acute (4) Rayshawn esophagitis: Code(s): B37.81 - Candidal esophagitis Status: Acute (5) Dementia of the Alzheimer's type: Code(s): G30.9 - Alzheimer's disease, unspecified; F02.80 - Dementia in other diseases classified elsewhere, unspecified severity, without behavioral disturbance, psychotic disturbance, mood disturbance, and anxiety Status: Acute DS: Summary Hospital Course Reason for hospitalization: 74yo female with dementia, HTN and Afib who presented to the ER by EMS from [facility] for worsening SOB. Please see H&P for details. Hospital Course: Patient has AFib and found to have RVR on admission. Cardiology consulted and appreciate their input. TSH normal. Resumed on home Diltiazem CD 240 mg daily. Metoprolol was added at low dose but then stopped. Heart mostly better controlled but higher this evening and with activity so low dose Toprol XL added at night with good response. Eliquis was on hold for anemia workup but now resumed. Presented with worsening SOB. BNP 3310 with CXR showing cardiomegaly with mild interstitial edema. [place] patient had acute diastolic CHF exacerbation. ECHO from January 2025 showed EF 55-60% with abnormal LV diastolic function. She was started on IV Lasix with good results. Appears euvolemic and has been changed to oral Lasix. Will continue Lasix 20mg daily at discharge. Patient noted to have anemia with Hgb 9-10 range this year. Hemoglobin was 11 one year ago. Iron studies consistent with iron deficiency anemia. Eliquis held. GI consulted. Iron sucrose IV x1 given. EGD showing possible candidiasis esophagitis in the distal esophagus. Gastroenterostomy was present with no evidence of neoplasm or ulcerative lesions. Colonoscopy showing cecal polyp that was removed, sigmoid diverticula and internal hemorrhoids. Possible rayshawn esophagitis. Awaiting biopsy results. Holding on treatment. Patient with dementia. Patient resumed on her Namenda. Patient overall did well and was able to be discharged on 06/04/25. Discharge instructions discussed with son and all questions answered. Status at Discharge Cognitive/behavioral status at discharge: stable Time Spent with Patient Time attestation: Total time spent providing and/or coordinating discharge services: 34 minutes Time spent: Greater than 30 minutes Exam Narrative: AF 97.4 124/77 79 18 99% ra Gen - NARD Chest - CTA bilaterally, nml RR CV -irregularly irregular. Telemetry showing AFib with mostly controlled rate Abd - Soft, NT/ND, Positive BS Ext - No pedal edema Neuro - Alert but confused. Psych - Nml mood and affect Skin - Warm and dry DS: Data Data Completed and Pending Pending studies at discharge: Pending at discharge 06/03/25 11:16 Surgical [PTH] Routine Surgical [PTH] Routine Labs on day of discharge: Labs from last 24 hours 06/03/25 05:19 TSH (Reflex) 4.340 Free T4 1.28 Total T3 0.86 Discharge Plan Discharge Attending physician on discharge: Prasad Santana Consulting providers: Barber Alvarado Discharging Clinician: Prasad Santana Anticipated Discharge Date/Time: 06/04/25 13:09 Patient Disposition: NH Fpc/Asst Living Activity: as tolerated Diet: heart healthy and high fiber Discharge Instructions: Check blood pressure 1 to 2 times a day. Record and bring into your doctor for review. Call your doctor if your blood pressure is greater than 180/110. Take precautions to avoid falls. Rise slowly from a lying or sitting position. Pause before standing or walking. Check daily morning weights after voiding. Call your doctor if you gain more than 3 lb in 2 days or 5 lb in 1 week. Contact your doctor or call 911 and come to the Emergency Room if you have fevers, increasing shortness of breath or other worrisome symptoms. Avoid NSAIDs (ibuprofen, naproxen, Aleve). Tylenol is safe to take. Follow-up with your primary care provider in 1-2 weeks. Please call for appointment. Follow-up with Educational Coordinator in 4-6 weeks. Please call for an appointment Follow-up with Information Architect in 1-2 weeks. Please call for an appointment. Thank you for using [facility] for your health care needs. Patient Instructions: Antibiotic Form Patient Language: Ivorian Stand Alone Forms: General Discharge Information Follow-up/Referrals: Johnnie,ROSEMARY Killian [Primary Care Provider, Unknown] - Call for Appointment Barber Alvarado MD [Physician, Cardiology] - Call for Appointment Unruly Viveros MD [Physician, Gastroenterology] - Call for Appointment Discharge Medications: New furosemide 20 mg Tablet 20 mg PO DAILY Qty: 30 0RF metoprolol succinate 25 mg tablet extended release 24 hr 12.5 mg PO DAILY Qty: 14 1RF ferrous sulfate 325 mg (65 mg iron) tablet 325 mg PO DAILY Qty: 30 0RF metoprolol succinate 25 mg tablet extended release 24 hr 12.5 mg PO DAILY Qty: 14 1RF Continued levothyroxine 88 mcg tablet 88 mcg PO DAILY cyanocobalamin (vitamin B-12) 500 mcg tablet 500 mcg PO DAILY acetaminophen 500 mg tablet 1,000 mg PO Q4-6H PRN (Reason: fever or pain) Probiotic Blend 2 billion cell-50 mg capsule 1 cap PO DAILY Multivitamin Women 50 Plus 8 mg iron-400 mcg-50 mcg tablet 1 tablet PO DAILY melatonin 10 mg capsule 5 mg PO HS cholecalciferol (vitamin D3) 25 mcg (1,000 unit) tablet 25 mcg PO DAILY naltrexone 50 mg tablet 50 mg PO DAILY lamotrigine 25 mg tablet 25 mg PO Q12H Patient Comments: Patient not sure on frequency. See pharmacy instructions albuterol 90 mcg/actuation aerosol 180 mcg inhalation Q4H PRN (Reason: wheezing) Rx Instructions: 2 puffs q4h as needed for wheezing. Eliquis 5 mg Tablet 5 mg PO Q12HR Qty: 60 1RF memantine 10 mg tablet 10 mg PO QHS Qty: 30 1RF diltiazem HCl [Cardizem LA] 240 mg tablet extended release 24 hr 240 mg PO QAM Qty: 30 1RF Discontinued donepezil 10 mg tablet 10 mg PO DAILY aspirin 81 mg tablet,chewable 81 mg PO DAILY Other Ambulatory Orders: Basic Metabolic Panel (Routine) Timeframe: [id number] Location: Determined by Patient Ordered By: Prasad Santana Date of admission: 05/31/25 10:37 Primary Care Provider: JohnnieNan Admitting Provider: Alexa Paniagua Attending physician on admission: Alexa Paniagua Condition: Stable Hospitalist MIPS Heart Failure (Exclusion) Patient has history of Heart Transplant or Left Ventricular Assistive Device?: No IF YES, STOP HERE Heart Failure (Qualifier) Patient has current or prior documentation of LVEF less than or equal to 40%, or mod/servere depressed LVSF?: No IF NO, STOP HERE
--- NOTE | 2025-06-09 09:08 | PC.NURSE ---
Esophagus pathology shows rayshawn esophagitis. Large intestine shows tubular adenoma. Dr. Max ann.
[2025-06-10 13:08] LABS: Copper, Serum or Plasma 128 ug/dL (80-158)
--- NOTE | 2025-06-14 08:11 | PC.NURSE ---
Copper is [address] is [address] Dr[address] Max ann.
--- NOTE | 2025-06-30 07:37 | PC.NURSE ---
Faxed pathology report of esophagus to PCP, ROSEMARY Garcia.
== END 2025-06-04 14:30 | DRG 291 ==
LOC: ANHED 09:29 → ANHIMU 10:22 → ANH2MED 06-04 13:14 → ANHIMU 06-08 11:15
PROVIDERS: Internal Medicine Gastroenterology; Admitting Provider Internal Medicine; Emergency Provider Emergency Medicine; PCP Physician Assistant; Visit Provider Internal Medicine
PROC: 0DJ08ZZ Inspection of Upper Intestinal Tract, Via Natural or Artificial Opening Endoscopic (ICD-10-PCS; CPT 45378; principal; 2025-06-03 11:15)
DX: I11.0 Hypertensive heart disease with heart failure (principal); I50.33 Acute on chronic diastolic (congestive) heart failure; I48.20 Chronic atrial fibrillation, unspecified; B37.81 Candidal esophagitis; D50.9 Iron deficiency anemia, unspecified; D12.0 Benign neoplasm of cecum; K57.30 Diverticulosis of large intestine without perforation or abscess without bleeding; G30.9 Alzheimer's disease, unspecified; F02.80 Dementia in other diseases classified elsewhere, unspecified severity, without behavioral disturbance, psychotic disturbance, mood disturbance, and anxiety; Z20.822 Contact with and (suspected) exposure to COVID-19; Z79.01 Long term (current) use of anticoagulants; Z79.82 Long term (current) use of aspirin; Z98.84 Bariatric surgery status
CPT/HCPCS: 36415; 71045; 80048; 80053; 81001; 81003; 82525; 82728; 83540; 83550; 83605; 83690; 83735; 83880; 84439; 84443; 84480; 84484; 84630; 85025; 85027; 85610; 85730; 87637; 88305; 88312; 88313; 93005; 96374; 96375; 96376; 97162; 97165; 99285; A9270; G0378; J0616; J1756; J1938; J2003; J2704; J3480; J7040; J7050; J7120